=== PATIENT | female | born 1975 | race African-American/Black ===

== ENCOUNTER 2017-08-27 12:37 | Emergency (ER) | payer OTHER ==
[2017-08-27 12:49] VITALS: TEMP 97.9; BMI 36.0
--- NOTE | 2017-08-27 13:14 | PDOC ---
Attending Attestation - Resident Resident Name: Rosa Francis - ED Attending Attestation I have performed the following: I have examined & evaluated the patient, The case was reviewed & discussed with the resident, I agree w/resident's findings & plan, Exceptions are as noted - HPI HPI: 08/27/17 13:12 Chest Pain - Physicial Exam PE: 08/27/17 13:12 VSS, NAD, - Medical Decision Making 08/27/17 13:[address] Francis's Assessment and Plan
--- NOTE | 2017-08-27 13:14 | PDOC ---
History of Present Illness - General Chief Complaint: Chest Pain Stated Complaint: PAIN/ CHEST, LT ARM Time Seen by Provider: 08/27/17 12:55 - History of Present Illness Initial Comments: 08/27/17 13:31 Patient is a 42 y.o. female with a PMH of urostomy bag (2/2 repeated nephrolithiasis) and fibroids (s/p myomectomy) who presents to our facility today c/o of a two day h/o of L sided chest pain that radiates down her arm as well as L arm numbness and tingling. Patient denies any diaphoresis, lightheadedness, nausea, vomiting or shortness of breath. Past History - Past Medical History Allergies/Adverse Reactions: Allergies Allergy/AdvReac Type Severity Reaction Status Date / Time No Known Allergies Allergy Verified 08/27/17 12:49 Home Medications: Ambulatory Orders Sulfamethoxazole/Trimethoprim [Bactrim Ds Tablet] 1 each PO BID #14 tablet 08/29 Anemia: Yes Disorders: Yes (ILLEOSTOMY, H/O KIDNEY STONES) Kidney Stones: Yes (kidney failure) - Reproductive History (#): 0 Para: 0 - Immunization History Immunization Up to Date: No - Suicide/Smoking/Psychosocial Hx Smoking Status: No Smoking History: Current every day smoker Have you smoked in the past 12 months: Yes Number of Cigarettes Smoked Daily: 3 Cigars Per Day: 0 Information on smoking cessation initiated: Yes 'Breaking Loose' booklet given: 08/27/17 Hx Alcohol Use: No Drug/Substance Use Hx: No Substance Use Type: None Hx Substance Use Treatment: No Review of Systems - Review of Systems Constitutional: No: Diaphoresis, Fever HEENTM: No: Blurred Vision Respiratory: No: Cough, Shortness of Breath Cardiac (ROS): Yes: Chest Pain. No: Lightheadedness, Palpitations ABD/GI: No: Constipated, Diarrhea, Nausea, Vomiting : No: Burning, Dysuria Psychiatric: No: Anxiety, Depression All Other Systems: Reviewed and Negative *Physical Exam - Vital Signs Last Vital Signs Temp Pulse Resp BP Pulse Ox 97.9 F 60 19 157/109 95 08/27/17 12:44 08/27/17 12:44 08/27/17 12:44 08/27/17 12:44 08/27/17 12:44 - Physical Exam General Appearance: Yes: Nourished, Appropriately Dressed Neck: positive: Trachea midline, Supple Respiratory/Chest: positive: Lungs Clear, Normal Breath Sounds Cardiovascular: positive: Regular Rhythm, Regular Rate, S1, S2 Gastrointestinal/Abdominal: positive: Soft Musculoskeletal: positive: Normal Inspection Integumentary: positive: Normal Color, Dry, Warm Neurologic: positive: Fully Oriented, Alert ED Treatment Course - LABORATORY CBC & Chemistry Diagram: 08/27/17 13:40 08/27/17 13:40 Medical Decision Making - Medical Decision Making 08/27/17 20:10 Patient is a 42 y.o. female who presents with 1 day h/o chest pain that radiates to her L arm and L arm numbness and tingling. Initial DDx is for ACS vs. Atypical Chest Pain PLAN: 1. Troponin 2. CXR 3. CBC, CMP Patient's chest pain resolved during time in ED. 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 Moreover, patient's Troponin (-) x1. As > 12 hours since onset of CP, patient discharged without repeat Troponin. Patient discharged with PCP follow-up as well as referral to neurology for numbness/tingling which also resolved during the course of the admission. 08/29/17 08:20 Patient's UA (results returned post discharge) showed 3+ Leukocyte Esterase. Patient contacted and prescription for Bactrim sent to patient's pharmacy. Return precautions and PCP follow-up. *DC/Admit/Observation/Transfer Diagnosis at time of Disposition: Chest pain, atypical - Discharge Dispostion Disposition: HOME Condition at time of disposition: Good - Prescriptions Prescriptions: Sulfamethoxazole/Trimethoprim [Bactrim Ds Tablet] 1 each PO BID #14 tablet - Referrals Referrals: Pb Randolph [Primary Care Provider] - - Patient Instructions Printed Discharge Instructions: DI for Atypical Chest Pain Additional Instructions: Please make an appointment with your PCP, Dr. Randolph, for evaluation as well as possible referral to a neurologist for nerve pain. Please return to the ED for any worsening or concerning symptoms.
[2017-08-27] MEDS ORDERED: ASPIRIN 325 MG TABLET PO ONE (13:27)
[2017-08-27] MEDS ORDERED: morphine CARPU-JECT 2 MG/1 ML DISP.SYRIN IVPUSH ONE ×2 (13:45→14:59)
[2017-08-27] MEDS ORDERED: ASPIRIN 325 MG TABLET ONE (13:49)
[2017-08-27 13:50] LABS: URINE APPEARANCE CLOUDY; URINE BILIRUBIN NEGATIVE (NEGATIVE); URINE BLOOD 1+ (NEGATIVE); URINE COLOR YELLOW; URINE GLUCOSE (UA) NEGATIVE (NEGATIVE); URINE KETONE NEGATIVE (NEGATIVE); URINE NITRITE POSITIVE (NEGATIVE); URINE UROBILINOGEN NEGATIVE mg/dL (0.2-1.0)
[2017-08-27] MEDS ORDERED: morphine CARPU-JECT 10 MG/1 ML DISP.SYRIN ONE (13:50)
[2017-08-27 13:53] LABS: URINE PROTEIN 2+ (NEGATIVE)
[2017-08-27 13:55] LABS: URINE BACTERIA FEW /hpf (NONE SEEN); URINE MUCUS RARE; URINE RBC 10 /hpf (0-3); URINE WBC 37 /hpf (3-5)
[2017-08-27 13:58] LABS: BASOPHIL 0.6 % (0-2.0); EOSINOPHIL 3.7 % (0-4.5); MCH 26.5 pg (25.7-33.7); MCHC 32.4 g/dl (32.0-36.0); MEAN CELL VOLUME 81.8 fl (80-96); MEAN PLT VOLUME 8.9 fl (7.5-11.1); NEUTROPHILS 67.8 % (42.8-82.8); PLATELET COUNT 202 K/MM3 (134-434); RDW 20.6 % (11.6-15.6)
[2017-08-27 14:11] LABS: ALBUMIN 3.5 g/dl (3.4-5.0); ALK PHOS 72 U/L (45-117); ANION GAP 7 (8-16); BILIRUBIN,TOTAL 0.3 mg/dL (0.2-1.0); CO2 25 mmol/L (21-32); CPK 214 IU/L (26-192); CREATININE 1.9 mg/dL (0.55-1.02); GLUCOSE,RANDOM 79 mg/dL (74-106); MAGNESIUM 2.4 mg/dL (1.8-2.4); SGOT/AST 17 U/L (15-37); SGPT/ALT 20 U/L (12-78); TOT PROT 7.3 g/dl (6.4-8.2)
[2017-08-27 14:23] LABS: TROPONIN I < 0.02 ng/ml (0.00-0.05)
[2017-08-27 15:37] LABS: ANISOCYTOSIS 2+; HYPOCHROMIA 1+; MICROCYTOSIS 2+
[2017-08-27 16:58] VITALS: BP 148/92; PULSE 62
[2017-08-27 18:51] LABS: URINE LEUK ESTERASE 3+ (NEGATIVE)
--- NOTE | 2017-09-01 09:19 | EKG ---
Test Reason : Blood Pressure : / mmHG Vent. 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
== END 2017-08-27 16:58 | disposition home or self-care (01) ==
LOC: JER 12:37
PROC: 3E033NZ Introduction of Analgesics, Hypnotics, Sedatives into Peripheral Vein, Percutaneous Approach (ICD-10-PCS; principal; 2017-08-27)
DX: R07.89 Other chest pain (principal); F17.210 Nicotine dependence, cigarettes, uncomplicated
CPT/HCPCS: 36415; 71020-TC; 80053; 81003; 81015; 82553; 83735; 84484; 84703; 85025; 93005; 93010; 99283-25

== ENCOUNTER 2018-01-25 00:19 | Emergency (ER) | payer OTHER ==
[2018-01-25 00:37] VITALS: BMI 33.7
[2018-01-25] MEDS ORDERED: ALBUTEROL SO4 0.083% IH SOL 2.5 MG/3 ML VIAL.NEB. NEB PRN (00:58)
[2018-01-25] MEDS ORDERED: methylPREDNISolone NA SUCC 125 MG/2 ML VIAL IVPB ONE (00:58)
[2018-01-25] MEDS ORDERED: IBUPROFEN 600 MG TABLET (FP) PO ONE (01:00)
[2018-01-25] MEDS ORDERED: ALBUTEROL SO4 0.083% IH SOL 2.5 MG/3 ML VIAL.NEB. NEB ONE (01:02)
[2018-01-25] MEDS ORDERED: methylPREDNISolone NA SUCC 125 MG/2 ML VIAL ONE (01:15)
[2018-01-25 01:16] LABS: BASO % 0.4 % (0-2.0); EOS % 3.1 % (0-4.5); HEMATOCRIT 39.9 % (32.4-45.2); HEMOGLOBIN 13.6 GM/dL (10.7-15.3); LYMPH % 11.7 % (8-40); MCH 29.8 pg (25.7-33.7); MCHC 34.2 g/dl (32.0-36.0); MEAN CELL VOLUME 87.2 fl (80-96); MEAN PLT VOLUME 8.8 fl (7.5-11.1); MONO % 5.2 % (3.8-10.2); NEUT % 79.6 % (42.8-82.8); PLATELET COUNT 210 K/MM3 (134-434); RBC 4.58 M/mm3 (3.60-5.2); RDW 15.4 % (11.6-15.6); WHITE BLOOD COUNT 9.7 K/mm3 (4.0-10.0)
[2018-01-25 01:40] LABS: ALBUMIN 3.2 g/dl (3.4-5.0); ALK PHOS 72 U/L (45-117); ANION GAP 8 (8-16); BILIRUBIN,TOTAL 0.2 mg/dL (0.2-1.0); BLOOD UREA NITROGEN 26 mg/dL (7-18); CALCIUM 9.2 mg/dL (8.5-10.1); CHLORIDE 112 mmol/L (98-107); CO2 23 mmol/L (21-32); GLUCOSE,RANDOM 93 mg/dL (74-106); POTASSIUM 4.2 mmol/L (3.5-5.1); SGOT/AST 18 U/L (15-37); SGPT/ALT 21 U/L (12-78); SODIUM 143 mmol/L (136-145); TOT PROT 6.9 g/dl (6.4-8.2)
--- NOTE | 2018-01-25 01:48 | PDOC ---
History of Present Illness - General Chief Complaint: Shortness of Breath Stated Complaint: FLU LIKE SYMPTOMS Time Seen by Provider: 01/25/18 00:51 History Source: Patient - History of Present Illness Initial Comments: 01/25/18 01:42 42 year old female with history of bladder stones with urostomy c/o cough , chest congestion. denies fever/ chills, NVD, abodminal pain. patient has a right sided urostomy bag reports foul smelling urine and pain at site x 1 wek. Past History - Past Medical History Allergies/Adverse Reactions: Allergies Allergy/AdvReac Type Severity Reaction Status Date / Time No Known Allergies Allergy Verified 01/25/18 00:46 Home Medications: Ambulatory Orders Albuterol Sulfate Inhaler - [Ventolin HFA Inhaler -] 1 - 2 inh PO Q4H PRN #1 inhaler 01/25/18 Sulfamethoxazole/Trimethoprim [Bactrim Ds -] 1 tab PO BID #14 tablet 01/25/18 predniSONE [Deltasone -] 40 mg PO DAILY #10 tablet 01/25/18 Anemia: Yes COPD: No Disorders: Yes (ILLEOSTOMY, H/O KIDNEY STONES) Kidney Stones: Yes (kidney failure) - Reproductive History (#): 0 Para: 0 - Immunization History Immunization Up to Date: No - Suicide/Smoking/Psychosocial Hx Smoking Status: No Smoking History: Current every day smoker Have you smoked in the past 12 months: Yes Number of Cigarettes Smoked Daily: 3 Cigars Per Day: 0 Information on smoking cessation initiated: No 'Breaking Loose' booklet given: 08/27/17 Hx Alcohol Use: No Drug/Substance Use Hx: No Substance Use Type: None Hx Substance Use Treatment: No Review of Systems - Review of Systems Able to Perform ROS?: Yes Is the patient limited Ecuadorean proficient: No Constitutional: No: Symptoms Reported, See HPI, Chills, Diaphoresis, Fever, Loss of Appetite, Malaise, Night Sweats, Weakness, Weight Stable, Unintentional Wgt. Loss, Unexplained wgt Loss, Other HEENTM: Yes: Nose Congestion. No: Symptoms Reported, See HPI, Eye Pain, Blurred Vision, Tearing, Recent change in vision, Double Vision, Cataracts, Ear Pain, Ocular Prothesis, Ear Discharge, Nose Pain, Tinnitus, Nose Bleeding, Hearing Loss, Throat Pain, Throat Swelling, Mouth Pain, Dental Problems, Difficulty Swallowing, Mouth Swelling, Other Respiratory: Yes: Cough. No: Symptoms reported, See HPI, Orthopnea, Shortness of Breath, SOB with Exertion, SOB at Rest, Stridor, Wheezing, Productive cough, Hemoptysis, Other Cardiac (ROS): No: Symptoms Reported, See HPI, Chest Pain, Edema, Irregular Heart Rate, Lightheadedness, Palpitations, Syncope, Chest Tightness, Other *Physical Exam - Vital Signs Last Vital Signs Temp Pulse Resp BP Pulse Ox 98.2 F 63 129/89 98 01/25/18 00:20 01/25/18 00:20 01/25/18 00:20 01/25/18 00:38 - Physical Exam General Appearance: Yes: Appropriately Dressed Respiratory/Chest: positive: Decreased Breath Sounds, Wheezing Gastrointestinal/Abdominal: positive: Normal Bowel Sounds, Soft Musculoskeletal: positive: Normal Inspection, Other (right sided ostomy draining well). negative: CVA Tenderness, CVA Tenderness (R), CVA Tenderness (L ), Decreased Range of Motion, Muscle Spasm, Vertebral Tenderness Extremity: positive: Normal Capillary Refill, Normal Inspection Integumentary: positive: Normal Color, Dry Neurologic: positive: Alert ED Treatment Course - LABORATORY CBC & Chemistry Diagram: 01/25/18 01:08 01/25/18 01:08 - ADDITIONAL ORDERS Additional order review: Laboratory Results 01/25/18 01:08 Serum , Qual Negative 01/25/18 01:08 RBC 4.58 MCV 87.2 MCHC 34.2 RDW 15.4 D MPV 8.8 Neutrophils % 79.6 Lymphocytes % 11.7 D Monocytes % 5.2 Eosinophils % 3.1 Basophils % 0.4 - RADIOLOGY Radiology Studies Ordered: Category Date Time Status CHEST PA & LAT [RAD] Stat Radiology 01/25/18 00:58 Ordered - Medications Given in the ED: ED Medications Discontinued Medications Generic Name Dose Route Start Last Admin Trade Name Freq PRN Reason Stop Dose Admin Ibuprofen 600 mg 01/25/18 01:00 01/25/18 01:16 Motrin - PO 01/25/18 01:01 Not Given ONCE ONE Methylprednisolone Sodium Succinate 125 mg 01/25/18 00:58 01/25/18 01:15 Solu-Medrol - IVPB 01/25/18 00:59 125 mg ONCE ONE Administration Progress Note - Progress Note Progress Note: A: Medical Decision Making - Medical Decision Making 01/25/18 03:20 improved aeration. + cough no wheezing *DC/Admit/Observation/Transfer Diagnosis at time of Disposition: Flu-like symptoms Urinary tract infection Qualifiers: Urinary tract infection type: acute cystitis Hematuria presence: without hematuria Qualified Code(s): N30.00 - Acute cystitis without hematuria Acute bronchitis Qualifiers: Bronchitis organism: unspecified organism Qualified Code(s): J20.9 - Acute bronchitis, unspecified - Discharge Dispostion Disposition: HOME Condition at time of disposition: Stable - Prescriptions Prescriptions: Albuterol Sulfate Inhaler - [Ventolin HFA Inhaler -] 1 - 2 inh PO Q4H PRN #1 inhaler PRN Reason: Cough predniSONE [Deltasone -] 40 mg PO DAILY #10 tablet Sulfamethoxazole/Trimethoprim [Bactrim Ds -] 1 tab PO BID #14 tablet - Referrals Referrals: Mynor Castillo MD [Primary Care Provider] - - Patient Instructions Printed Discharge Instructions: DI for Urinary Tract Infection (UTI) Additional Instructions: drink plenty of fluids use albuterol every 4 hours as needed for cough. use prednisone as prescribed, take Bactrim as prescribed. follow up with your doctor as soon as possible. return to the ER if symptoms worsen. - Post Discharge Activity
[2018-01-25] MEDS ORDERED: ACETAMINOPHEN 325 MG TABLET (FP) PO ONE (02:01)
[2018-01-25] MEDS ORDERED: ACETAMINOPHEN 325 MG TABLET (FP) ONE (02:11)
[2018-01-25 02:45] LABS: URINE APPEARANCE CLOUDY; URINE BILIRUBIN NEGATIVE (NEGATIVE); URINE BLOOD 2+ (NEGATIVE); URINE COLOR YELLOW; URINE GLUCOSE (UA) NEGATIVE (NEGATIVE); URINE KETONE NEGATIVE (NEGATIVE); URINE NITRITE POSITIVE (NEGATIVE); URINE UROBILINOGEN NEGATIVE mg/dL (0.2-1.0)
[2018-01-25 02:47] LABS: URINE LEUK ESTERASE 2+ (NEGATIVE); URINE PROTEIN 2+ (NEGATIVE)
[2018-01-25 02:49] LABS: EPI CELLS FEW /HPF (FEW); URINE BACTERIA MANY /hpf (NONE SEEN); URINE HYALINE CAST 54 /lpf
[2018-01-25] MEDS ORDERED: guaiFENesin 200 MG/10 ML 10 ML UNIT-DOSE CUPS PO ONE (03:20)
[2018-01-25] MEDS ORDERED: guaiFENesin 200 MG/10 ML 10 ML UNIT-DOSE CUPS ONE (03:24)
[2018-01-25] MEDS ORDERED: SODIUM CHLORIDE 500 ML IV STA (03:42)
[2018-01-25 04:42] VITALS: BP 110/78; PULSE 78; TEMP 98.5
--- NOTE | 2018-01-28 08:46 | PDOC ---
Patient Follow-up (Call Back) - Post ED Follow - Up Condition at time of discharge: Stable Disposition at time of original discharge: HOME Reason for Call Back: Abnwl. Microbiology (on bactrim which is resistant on ucx , need levaquin or macrobid called pt and l/m to call back)
--- NOTE | 2018-01-29 08:06 | PDOC ---
Patient Follow-up (Call Back) - Post ED Follow - Up Condition at time of discharge: Stable Disposition at time of original discharge: HOME Reason for Call Back: Abnwl. Microbiology (Called pt and l/m to call back)
--- NOTE | 2018-01-29 13:01 | PDOC ---
Patient Follow-up (Call Back) - Post ED Follow - Up Condition at time of discharge: Stable Disposition at time of original discharge: HOME Reason for Call Back: Abnwl. Microbiology (She with positive urine culture that was resistant to Bactrim patient called in I have called in a prescription for Levaquin, patient will olive picker medication DC Bactrim and take as instructed.)
--- NOTE | 2018-01-30 12:53 | EKG ---
Test Reason : Blood Pressure : / mmHG Vent. Rate : 060 BPM Atrial Rate : 060 BPM P-R Int : 158 ms QRS Dur : 084 ms QT Int : 416 ms P-R-T Axes : 037 034 038 degrees QTc Int : 416 ms NORMAL SINUS RHYTHM CANNOT RULE OUT ANTEROSEPTAL INFARCT (CITED ON OR BEFORE 17-SEP-2013) ABNORMAL ECG WHEN COMPARED WITH ECG OF 27-AUG-2017 12:50, NO SIGNIFICANT CHANGE WAS FOUND Confirmed by MD SALOME, DALLAS ([id number]) on 01/30/2018 12:52:27 PM Referred By: Confirmed By:DALLAS MCMAHON MD
== END 2018-01-25 04:42 | disposition home or self-care (01) ==
LOC: JER 00:19
PROC: 3E0333Z Introduction of Anti-inflammatory into Peripheral Vein, Percutaneous Approach (ICD-10-PCS; principal; 2018-01-25)
PROC: 3E0337Z Introduction of Electrolytic and Water Balance Substance into Peripheral Vein, Percutaneous Approach (ICD-10-PCS; 2018-01-25)
PROC: 3E0F7GC Introduction of Other Therapeutic Substance into Respiratory Tract, Via Natural or Artificial Opening (ICD-10-PCS; 2018-01-25)
DX: J11.1 Influenza due to unidentified influenza virus with other respiratory manifestations (principal); N30.00 Acute cystitis without hematuria; J20.9 Acute bronchitis, unspecified
CPT/HCPCS: 36415; 71046-TC-FY; 80053; 81003; 81015; 84703; 85025; 87086; 87186; 93005; 93010; 99283-25

== ENCOUNTER 2018-02-14 19:20 | Inpatient (IN) | payer OTHER ==
--- NOTE | 2018-02-14 19:40 | PDOC ---
Rapid Medical Evaluation Time Seen by Provider: 02/14/18 19:39 Medical Evaluation: Allergies Allergy/AdvReac Type Severity Reaction Status Date / Time No Known Allergies Allergy Verified 01/25/18 00:46 02/14/18 19:39 I have performed a brief in-person evaluation of this patient. The patient presents with a chief complaint of: R flank pain x 2 days. Also c/o b/l LE pain. H/o bladder stones w/ R urostomy bag, recurrent utis Pertinent physical exam findings:+ttp to R groin, no CVAT I have ordered the following:labs/ua The patient will proceed to the ED for further evaluation. Discharge Disposition - Diagnosis Flank pain - Referrals - Patient Instructions - Post Discharge Activity
[2018-02-14] MEDS ORDERED: ACETAMINOPHEN 1000 MG/100 ML VIAL (NON FORMULARY) IVPB ONE (20:54)
[2018-02-14] MEDS ORDERED: ACETAMINOPHEN INJECTION 100 ML IVPB ONE (21:02)
--- NOTE | 2018-02-14 21:02 | PDOC ---
History of Present Illness - General Chief Complaint: Pain Stated Complaint: PAIN Time Seen by Provider: 02/14/18 19:39 History Source: Patient Exam Limitations: No Limitations - History of Present Illness Initial Comments: 02/14/18 20:55 The patient is a 42 F with a PMH of nephrolithiasis s/p urostomy bag and ovarian cysts who presents to the ER with complaints of flank pain and b/l knee pain. The patient states that her flank pain started 1 week ago and is intermittent, sharp, starts in her flank and radiates to her groin. She states that it feels more like her ovarian cysts than her nephrolithiasis. She denies any fever, chills, and hematuria. LMP is 2 weeks ago. The patient also complains of b/l knee pain, L > R which she describes as a swelling pain which includes difficulty walking. She states that her pain is constant, and radiates down to her ankles and toes. She denies any history of gout, long car rides/ plane trips, hx of blood clots, cough, hemoptysis. She states she is mildly nauseous but denies any other symptoms. Past History - Past Medical History Allergies/Adverse Reactions: Allergies Allergy/AdvReac Type Severity Reaction Status Date / Time No Known Allergies Allergy Verified 02/14/18 19:42 Home Medications: Ambulatory Orders Albuterol Sulfate Inhaler - [Ventolin HFA Inhaler -] 1 - 2 inh PO Q4H PRN #1 inhaler 01/25/18 Anemia: Yes COPD: No Disorders: Yes (ILLEOSTOMY, H/O KIDNEY STONES) Kidney Stones: Yes (kidney failure) - Reproductive History (#): 0 Para: 0 - Immunization History Immunization Up to Date: No - Suicide/Smoking/Psychosocial Hx Smoking Status: No Smoking History: Current every day smoker Have you smoked in the past 12 months: Yes Number of Cigarettes Smoked Daily: 3 Cigars Per Day: 0 Information on smoking cessation initiated: No 'Breaking Loose' booklet given: 08/27/17 Hx Alcohol Use: No Drug/Substance Use Hx: No Substance Use Type: None Hx Substance Use Treatment: No Review of Systems - Review of Systems Able to Perform ROS?: Yes Comments:: 02/14/18 21:03 GENERAL/CONSTITUTIONAL: No fever or chills. No weakness. HEAD, EYES, EARS, NOSE AND THROAT: No change in vision. No ear pain or discharge. No sore throat. CARDIOVASCULAR: No chest pain, palpitations, or lightheadedness. RESPIRATORY: No cough, wheezing, shortness of breath, or hemoptysis. GASTROINTESTINAL: Positive for nausea. No vomiting, diarrhea, constipation, or abdominal pain. GENITOURINARY: Positive flank pain. No dysuria, frequency, hematuria, or change in urination. MUSCULOSKELETAL: Positive for b/l knee pain and swelling. No neck or back pain. SKIN: No rash or lesions. NEUROLOGIC: No headache, numbness, tingling, weakness, loss of consciousness, or change in strength/sensation. ENDOCRINE: No increased thirst. No abnormal weight change. HEMATOLOGIC/LYMPHATIC: No anemia, easy bleeding, or history of blood clots. ALLERGIC/IMMUNOLOGIC: No hives or skin allergy. Is the patient limited Tamazight proficient: No *Physical Exam - Vital Signs Last Vital Signs Temp Pulse Resp BP Pulse Ox 98.2 F 74 20 143/67 97 02/14/18 19:43 02/14/18 19:43 02/14/18 19:43 02/14/18 19:43 02/14/18 19:43 - Physical Exam Comments: 02/14/18 21:04 GENERAL: Well developed, well nourished. Awake and alert. No acute distress. HEENT: Normocephalic, atraumatic. Hearing grossly normal. Moist mucous membranes. PERRLA, EOMI. No conjunctival pallor. Sclera are non-icteric. NECK: Supple. Full ROM. No JVD. CARDIOVASCULAR: Regular rate and rhythm. No murmurs, rubs, or gallops. PULMONARY: No evidence of respiratory distress. Lungs clear to auscultation bilaterally. No wheezing, rales or rhonchi. ABDOMINAL: Soft. Non-tender. Non-distended. Urostomy bag present. No rebound or guarding. GENITOURINARY: No CVA tenderness bilaterally. MUSCULOSKELETAL: Normal range of motion at all joints. Mild swelling noted on L knee, tender to palpation b/l. Nonerythematous, not warm to touch b/l. No bony deformities or tenderness. EXTREMITIES: No cyanosis. No clubbing. No edema. No calf tenderness. SKIN: Warm and dry. Normal capillary refill. No rashes. No jaundice. NEUROLOGICAL: Alert, awake, appropriate. Cranial nerves 2-12 intact. Normal speech. Gait is normal without ataxia. PSYCHIATRIC: Cooperative. Good eye contact. Appropriate mood and affect. ED Treatment Course - LABORATORY CBC & Chemistry Diagram: 02/14/18 21:10 02/14/18 21:10 Medical Decision Making - Medical Decision Making 02/14/18 21:18 The patient is a 42F with a PMH of nephrolithiasis s/p urostomy and ovarian cysts who presents to the ER with flank pain and b/l knee pain. Will r/o repeat nephrolithiasis, ectopic with u-preg, and I have low suspicion for tubo-ovarian abscess 2/2 lack of systemic symptoms including fever and chills. The patient's knee pain will be worked up with u/s. The patient has no trauma to the area so I have lower suspicion for fracture. Pending labs and imaging. Will administer IV acetaminophen for pain control. 02/14/18 22:10 UA indicates recurrent UTI with sensitivity to vancomycin and ceftriaxone on culture from 01/25. Dr. Cote has been paged for admission. 02/14/18 23:07 Dr. Cote accepts admission for med/surg bed. *DC/Admit/Observation/Transfer Diagnosis at time of Disposition: Flank pain Urinary tract infection Qualifiers: Urinary tract infection type: site unspecified Hematuria presence: with hematuria Qualified Code(s): N39.0 - Urinary tract infection, site not specified ; R31.9 - Hematuria, unspecified; R31.9 - Hematuria, unspecified - Discharge Dispostion Condition at time of disposition: Stable Admit: Yes - Referrals Referrals: Rayne Castillo MD [Primary Care Provider] - - Patient Instructions - Post Discharge Activity
--- NOTE | 2018-02-14 21:05 | PDOC ---
Attending Attestation - Resident Resident Name: Haim Richards - ED Attending Attestation I have performed the following: I have examined & evaluated the patient, The case was reviewed & discussed with the resident, I agree w/resident's findings & plan, Exceptions are as noted - Physicial Exam PE: 02/14/18 21:52 Physical Exam General Appearance: Yes: Appropriately Dress, Moderate Distress No: Intoxicated HEENT: positive: EOMI, VIV, Normal ENT Inspection, Normal Voice, TMs Normal, Pharynx Normal. negative: Pale Conjunctivae, Photophobia, Scleral Icterus (R), Scleral Icterus (L) Neck: positive: Trachea midline, Normal Thyroid, Supple. negative: Tender, Rigid, Carotid bruit, Stridor, Lymphadenopathy (R), Lymphadenopathy (L), Thyromegaly Respiratory/Chest: positive: Lungs Clear, Normal Breath Sounds. negative: Chest Tender, Respiratory Distress, Accessory Muscle Use, Labored Respiration, RES, Crackles, Rales, Rhonchi, Stridor, Wheezing, Dullness Cardiovascular: positive: Regular Rhythm, Regular Rate, S1, S2. negative: Edema , JVD, Murmur, Bradycardia, Tachycardia Vascular Pulses: Dorsalis-Pedis (R): 2+, Doralis-Pedis (L): 2+ Gastrointestinal/Abdominal: positive: Normal Bowel Sounds, Flat, Soft. negative : Tender, Organomegaly, Pulsatile Mass, Increased Bowel Sounds, Decreased BS, Distended, Guarding, Rebound, Hernia, Hepatomegaly, Spleenomegaly Lymphatic: negative: Adenopathy, Tenderness Musculoskeletal: positive: Normal Inspection. bilateral tenderness to both knee negative: CVA Tenderness, Decreased Range of Motion Extremity: positive: Normal Capillary Refill, Normal Inspection, Normal Range of Motion, Pelvis Stable. negative: Tender, Pedal Edema, Swelling, Erythema Integumentary: positive: Normal Color, Dry, Warm. negative: Cyanotic, Erythema , Jaundice, Rash Neurologic: positive: distribution associate II-XII NML intact, Fully Oriented, Alert, Normal Mood/ Affect, Motor Strength 5/5. negative: EOM Palsy, Facial Droop, Sensory Deficit - Medical Decision Making 02/14/18 21:54 This is pt third visit for urinary complaints. Pt still has UTI. Pt will be admitted for IV abx <Rolly Hermosillo - Last Filed: 02/14/18 21:54> - HPI HPI: 02/14/18 21:26 The patient is a 42-year-old female, with a significant past medical of urostomy bag (2/2 repeated nephrolithiasis) and fibroids (s/p myomectomy), who presents to the ED with one week of right-sided flank pain and bilateral knee pain. The patient describes her flank pain is sharp, intermittent, radiating down to her right groin and right leg. This pain is similar to the pain she has experienced in the past with her right ovarian cyst. The patient's knee pain is constant and she has not been able to ambulate due to the pain. She denies any trauma to the area. She reports associated nausea, but no vomiting. She denies any history of gout. The patient denies any fever, chills, vomiting, diarrhea, or abdominal pain. Denies any shortness of breath or chest pain. Allergies: NKA PCP: Dr. Rayne Castillo - Medical Decision Making 02/14/18 21:40 Dr. Rayne Castillo was paged and notified via phone service. Second page was placed at 22:06. Case was discussed at 22:10; Dr. Cote will be called for admission. 02/14/18 22:15 Dr. Cote was paged and notified via phone service. <Jenny Malin - Last Filed: 02/14/18 22:31> Discharge Disposition <Rolly Hermosillo - Last Filed: 02/14/18 21:54> - Discharge Dispostion Last Admission D/C Date: 02/22/16 <Jenny Malin - Last Filed: 02/14/18 22:31> - Diagnosis Flank pain - Referrals Referrals: Rayne Castillo MD [Primary Care Provider] - - Patient Instructions - Post Discharge Activity Attestations - Attestations 02/14/18 21:27 Documentation prepared by Jenny Malin, acting as medical videographer for Rolly Hermosillo MD. <Jenny Malin - Last Filed: 02/14/18 22:31>
[2018-02-14 21:24] LABS: EOS % 6.2 % (0-4.5); HEMATOCRIT 38.1 % (32.4-45.2); HEMOGLOBIN 13.2 GM/dL (10.7-15.3); LYMPH % 20.5 % (8-40); MCH 30.9 pg (25.7-33.7); MCHC 34.6 g/dl (32.0-36.0); MEAN CELL VOLUME 89.3 fl (80-96); MEAN PLT VOLUME 9.5 fl (7.5-11.1); MONO % 6.2 % (3.8-10.2); NEUT % 66.1 % (42.8-82.8); PLATELET COUNT 204 K/MM3 (134-434); RBC 4.26 M/mm3 (3.60-5.2); RDW 15.8 % (11.6-15.6); WHITE BLOOD COUNT 6.9 K/mm3 (4.0-10.0)
[2018-02-14 21:25] LABS: URINE APPEARANCE SLCLOUDY; URINE BILIRUBIN NEGATIVE (<2.0 mg/dL); URINE BLOOD 2+ (NEGATIVE); URINE COLOR LTYELLOW; URINE GLUCOSE (UA) NEGATIVE (NEGATIVE); URINE KETONE NEGATIVE (NEGATIVE); URINE NITRITE POSITIVE (NEGATIVE); URINE UROBILINOGEN NEGATIVE mg/dL (0.2-1.0)
[2018-02-14 21:26] LABS: URINE LEUK ESTERASE 2+ (NEGATIVE); URINE PROTEIN 2+ (NEGATIVE)
[2018-02-14 21:35] LABS: EPI CELLS RARE /HPF (FEW); URINE BACTERIA RARE /hpf (NONE SEEN)
[2018-02-14 21:47] LABS: ALBUMIN 3.2 g/dl (3.4-5.0); ALK PHOS 72 U/L (45-117); ANION GAP 9 (8-16); BILIRUBIN,TOTAL 0.2 mg/dL (0.2-1.0); BLOOD UREA NITROGEN 25 mg/dL (7-18); CALCIUM 8.4 mg/dL (8.5-10.1); CHLORIDE 110 mmol/L (98-107); CO2 23 mmol/L (21-32); GLUCOSE,RANDOM 100 mg/dL (74-106); POTASSIUM 4.1 mmol/L (3.5-5.1); SGOT/AST 16 U/L (15-37); SGPT/ALT 17 U/L (12-78); SODIUM 142 mmol/L (136-145); TOT PROT 6.8 g/dl (6.4-8.2)
[2018-02-14] MEDS ORDERED: morphine CARPU-JECT 2 MG/1 ML DISP.SYRIN IVPUSH ONE (21:47)
[2018-02-14] MEDS ORDERED: morphine SULFATE 4 MG/ML VIAL ONE (21:47)
[2018-02-14] MEDS ORDERED: ONDANSETRON 4 MG/2 ML VIAL IVPUSH STA (21:47)
[2018-02-14] MEDS ORDERED: ONDANSETRON 4 MG/2 ML VIAL ONE (21:48)
[2018-02-14] MEDS ORDERED: morphine CARPU-JECT 4 MG/1 ML DISP.SYRIN IVPUSH ONE (21:54)
[2018-02-14] MEDS ORDERED: CEFTRIAXONE 1 GM in DEXTROSE 5%-WATER - 50 ML IVPB ONE (22:09)
[2018-02-14] MEDS ORDERED: VANCOMYCIN 1,000 MG in DEXTROSE 5%-WATER - 250 ML IVPB ONE (22:10)
[2018-02-14] MEDS ORDERED: VANCOMYCIN 1 GRAM (PRE-DOCKED) 1,000 MG/250 ML BAG IVPB ONE (22:42)
[2018-02-14] MEDS ORDERED: CEFTRIAXONE 1 GM/50 ML BAG ONE (22:42)
[2018-02-15] MEDS ORDERED: ALBUTEROL SO4 2.5/IPRATROPIUM 0.5 INH SOL 3 ML VIAL.NEB. NEB PRN (02:08)
[2018-02-15] MEDS ORDERED: KETOROLAC TROMETHAMINE 15 MG/ML VIAL IM PRN (02:31)
[2018-02-15] MEDS: DEXTROSE 5%-0.45% SALINE 1,000 ML IV SCH (02:32)
[2018-02-15] MEDS ORDERED: morphine CARPU-JECT 4 MG/1 ML DISP.SYRIN IVPUSH ONE (03:39)
[2018-02-15] MEDS ORDERED: morphine SULFATE 4 MG/ML VIAL ONE ×2 (03:41→14:27)
[2018-02-15 08:49] LABS: BASO % 0.4 % (0-2.0); HEMATOCRIT 36.3 % (32.4-45.2); HEMOGLOBIN 12.4 GM/dL (10.7-15.3); LYMPH % 26.3 % (8-40); MCH 30.7 pg (25.7-33.7); MCHC 34.3 g/dl (32.0-36.0); MEAN CELL VOLUME 89.7 fl (80-96); MEAN PLT VOLUME 9.4 fl (7.5-11.1); MONO % 8.3 % (3.8-10.2); PLATELET COUNT 197 K/MM3 (134-434); RBC 4.04 M/mm3 (3.60-5.2); RDW 15.8 % (11.6-15.6); WHITE BLOOD COUNT 6.4 K/mm3 (4.0-10.0)
[2018-02-15 09:08] LABS: ANION GAP 6 (8-16); BILIRUBIN,TOTAL 0.2 mg/dL (0.2-1.0); BLOOD UREA NITROGEN 26 mg/dL (7-18); CALCIUM 7.8 mg/dL (8.5-10.1); CHLORIDE 109 mmol/L (98-107); CO2 24 mmol/L (21-32); CREATININE 1.9 mg/dL (0.55-1.02); GLUCOSE,RANDOM 93 mg/dL (74-106); POTASSIUM 3.8 mmol/L (3.5-5.1); SGOT/AST 15 U/L (15-37); SGPT/ALT 17 U/L (12-78); SODIUM 139 mmol/L (136-145); TOT PROT 6.2 g/dl (6.4-8.2)
[2018-02-15 09:09] LABS: ALK PHOS 66 U/L (45-117)
[2018-02-15] MEDS ORDERED: HEPARIN NA (PORCINE) 5,000 UNITS/ML 1ML VIAL ONE (09:28)
[2018-02-15] MEDS ORDERED: CEFTRIAXONE 1 GM/50 ML BAG ONE (09:28)
[2018-02-15] MEDS: HEPARIN NA (PORCINE) 5,000 UNITS/ML 1ML VIAL SQ SCH ×2 (09:38→22:15)
[2018-02-15] MEDS ORDERED: KETOROLAC TROMETHAMINE 15 MG/ML VIAL ONE (09:40)
[2018-02-15] MEDS ORDERED: CEFTRIAXONE 1 GM in DEXTROSE 5%-WATER - 50 ML IVPB SCH (10:00)
[2018-02-15] MEDS ORDERED: TAMSULOSIN HCL 0.4 MG CAP.ER.24H (FP) PO ONE (10:30)
[2018-02-15] MEDS ORDERED: TAMSULOSIN HCL 0.4 MG CAP.ER.24H (FP) ONE (11:19)
[2018-02-15] MEDS: morphine SULFATE 4 MG/ML VIAL IVPUSH PRN ×2 (14:33→20:15)
--- NOTE | 2018-02-15 16:05 | CON.ID ---
Consult Consult Specialty:: infectious diseases Referred by:: Reason for Consultation:: uti,pyelo - History of Present Illness Chief Complaint: abd pain History of Present Illness: 42 year old female with pmhx of nephrolithiasis, CKD, urostomy bag, and ovarian cysts who presents to the ER complaining of right flank pain. She has had it for several days and feels that it radiates to her groin. She denies fevers or chills. She has had kidney stones in the past. patient has been complaining of knee pain currently he patient is comfortable and her discomfort is mainly in the rt back her urostomy is in place clear urine - History Source History Provided By: Patient Limitations to Obtaining History: No Limitations - Past Medical History Renal/: Yes: Renal Inusuff (s/p urinary diversion , ileal conduit 8 yrs ago at [facility] . 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 suspect thyroditis ) - Alcohol/Substance Use Hx Alcohol Use: No - Smoking History Smoking history: Current every day smoker Have you smoked in the past 12 months: Yes Aproximately how many cigarettes per day: 3 - Social History Usual Living Arrangement: Alone ADL: Independent History of Recent Travel: No Home Medications - Allergies Allergies/Adverse Reactions: Allergies Allergy/AdvReac Type Severity Reaction Status Date / Time No Known Allergies Allergy Verified 02/14/18 19:42 - Home Medications Home Medications: Ambulatory Orders NK [No Known Home Medication] 02/15/18 Family Disease History - Family Disease History Family Disease History: [place]: Mother (MGM [place] Breast) Review of Systems - Review of Systems Constitutional: reports: No Symptoms Eyes: reports: No Symptoms HENT: reports: No Symptoms Neck: reports: No Symptoms Cardiovascular: reports: No Symptoms Respiratory: reports: No Symptoms Gastrointestinal: reports: No Symptoms Genitourinary: reports: Flank Pain Musculoskeletal: reports: No Symptoms, Other (rt groin pain) Integumentary: reports: No Symptoms Neurological: reports: No Symptoms Endocrine: reports: No Symptoms Hematology/Lymphatic: reports: No Symptoms Psychiatric: reports: No Symptoms Physical Exam Vital Signs: Vital Signs Temperature 98.6 F 02/15/18 15:30 Pulse Rate 78 02/15/18 15:30 Respiratory Rate 18 02/15/18 15:30 Blood Pressure 119/78 02/15/18 15:30 O2 Sat by Pulse Oximetry (%) 98 02/15/18 15:30 Constitutional: Yes: Well Nourished, No Distress, Calm, Obese Eyes: Yes: Conjunctiva Clear, EOM Intact HENT: Yes: Atraumatic, Normocephalic Neck: Yes: Supple, Trachea Midline Cardiovascular: Yes: Regular Rate and Rhythm Respiratory: Yes: Regular, CTA Bilaterally Gastrointestinal: Yes: Normal Bowel Sounds, Soft Renal/: Yes: Other (urostomy bag present,rt groin pain). No: CVA Tenderness - Left, CVA Tenderness - Right Musculoskeletal: Yes: WNL Extremities: Yes: WNL Neurological: Yes: Alert, Oriented Psychiatric: Yes: Alert, Oriented Labs: CBC, BMP 02/15/18 07:50 02/15/18 07:50 Assessment/Plan Problem List - Problems (1) Flank pain Code(s): R10.9 - UNSPECIFIED ABDOMINAL PAIN (2) Urinary tract infection Code(s): N39.0 - URINARY TRACT INFECTION, SITE NOT SPECIFIED Qualifiers: Urinary tract infection type: site unspecified Hematuria presence: with hematuria Qualified Code(s): N39.0 - Urinary tract infection, site not specified; R31.9 - Hematuria, unspecified; R31.9 - Hematuria, unspecified (3) CKD (chronic kidney disease) Code(s): N18.9 - CHRONIC KIDNEY DISEASE, UNSPECIFIED plan will start the patient on abx await for all the cx reports hydration rest as per primary team
[2018-02-15 16:21] VITALS: BMI 37.3
--- NOTE | 2018-02-15 17:07 | CONSULT ---
Consult Consult Specialty:: Nephrology Reason for Consultation:: CKD - History of Present Illness Chief Complaint: flank and knee pain History of Present Illness: Pt is a 42 year old female with pmhx of nephrolithiasis, CKD, urostomy bag, and ovarian cysts who presents to the ER complaining of right flank pain. She has had it for several days and feels that it radiates to her groin. She denies fevers or chills. She has had kidney stones in the past. She has CKD but does not follow with a disaster recovery consultant. She also complains of knee pain and difficulty walking. She says that the urine has been clear. I was called to evaluate her for CKD. - History Source History Provided By: Patient, Medical Record - Past Medical History Renal/: Yes: Renal Inusuff (s/p urinary diversion , ileal conduit 8 yrs ago at [facility] . 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 suspect thyroditis ) - Alcohol/Substance Use Hx Alcohol Use: No - Smoking History Smoking history: Current every day smoker Have you smoked in the past 12 months: Yes Aproximately how many cigarettes per day: 3 - Social History Usual Living Arrangement: Alone ADL: Independent History of Recent Travel: No Home Medications - Allergies Allergies/Adverse Reactions: Allergies Allergy/AdvReac Type Severity Reaction Status Date / Time No Known Allergies Allergy Verified 02/14/18 19:42 - Home Medications Home Medications: Ambulatory Orders NK [No Known Home Medication] 02/15/18 Family Disease History - Family Disease History Family Disease History: [place]: Mother (MGM [place] Breast) Review of Systems - Review of Systems Constitutional: reports: Malaise Eyes: reports: No Symptoms HENT: reports: No Symptoms Neck: reports: No Symptoms Cardiovascular: reports: No Symptoms Respiratory: reports: No Symptoms Gastrointestinal: reports: No Symptoms Genitourinary: reports: Flank Pain Musculoskeletal: reports: Joint Pain Integumentary: reports: No Symptoms Neurological: reports: No Symptoms Endocrine: reports: No Symptoms Psychiatric: reports: No Symptoms Physical Exam Vital Signs: Vital Signs Temperature 97.3 F L 02/15/18 16:10 Pulse Rate 60 02/15/18 16:10 Respiratory Rate 20 02/15/18 16:10 Blood Pressure 120/64 02/15/18 16:10 O2 Sat by Pulse Oximetry (%) 94 L 02/15/18 16:24 Constitutional: Yes: Calm Eyes: Yes: Conjunctiva Clear HENT: Yes: Atraumatic Cardiovascular: Yes: S1, S2 Respiratory: Yes: CTA Bilaterally Gastrointestinal: Yes: Soft Renal/: Yes: Other (urostomy) Musculoskeletal: Yes: WNL Edema: No Integumentary: Yes: Tattoos Neurological: Yes: Oriented Psychiatric: Yes: Oriented Labs: CBC, BMP 02/15/18 07:50 02/15/18 07:50 Laboratory Tests 02/02/15 02/19/15 06/15/15 17:30 01:30 07:00 WBC Hgb Potassium Creatinine 1.8 H 2.1 H 1.9 H Urine Protein Urine Blood Ur Leukocyte Esterase 05/19/16 08/27/17 01/25/18 00:00 13:40 01:08 WBC Hgb Potassium Creatinine 2.1 H 1.9 H 2.0 H Urine Protein Urine Blood Ur Leukocyte Esterase 02/14/18 02/14/18 02/15/18 21:10 21:10 07:50 WBC 6.4 Hgb 12.4 Potassium Creatinine 2.0 H Urine Protein 2+ H Urine Blood 2+ H Ur Leukocyte Esterase 2+ H 02/15/18 07:50 WBC Hgb Potassium 3.8 Creatinine 1.9 H Urine Protein Urine Blood Ur Leukocyte Esterase Imaging - Results Ultrasound: Report Reviewed (bilateral hydro) Problem List - Problems (1) Flank pain Code(s): R10.9 - UNSPECIFIED ABDOMINAL PAIN (2) Urinary tract infection Code(s): N39.0 - URINARY TRACT INFECTION, SITE NOT SPECIFIED Qualifiers: Urinary tract infection type: site unspecified Hematuria presence: with hematuria Qualified Code(s): N39.0 - Urinary tract infection, site not specified; R31.9 - Hematuria, unspecified; R31.9 - Hematuria, unspecified (3) CKD (chronic kidney disease) Code(s): N18.9 - CHRONIC KIDNEY DISEASE, UNSPECIFIED Assessment/Plan Current Medications Generic Name Dose Route Start Last Admin Trade Name Freq PRN Reason Stop Dose Admin Albuterol/Ipratropium 1 amp 02/15/18 02:08 Duoneb - NEB Q6H PRN SHORTNESS OF BREATH Heparin Sodium (Porcine) 5,000 unit 02/15/18 10:00 02/15/18 09:38 Heparin - SQ 5,000 unit BID PATRICK Administration Dextrose/Sodium Chloride 1,000 mls @ 75 mls/hr 02/15/18 02:15 02/15/18 02:32 D5-1/2ns - IV 75 mls/hr ASDIR PATRICK Administration Piperacillin Sod/Tazobactam 50 mls @ 100 mls/hr 02/15/18 18:00 Sod 2.25 gm/ Dextrose IVPB Q8H-IV PATRICK Protocol Morphine Sulfate 4 mg 02/15/18 14:03 02/15/18 14:33 Morphine Sulfate IVPUSH 4 mg Q6H PRN Administration pain Impression 1. CKD 2. hydronephrosis 3. uti 4. ovarian cysts 5. anemia Plan - urology eval for the hydro, pt is making urine - reviewed labs from previous admission and renal function is stable - she will however need a renal ckd workup, which she says has not been done - send urine and blood cultures - ID input pending - will follow Dr Montgomery
--- NOTE | 2018-02-15 18:11 | HP ---
Admitting History and Physical - Past Medical History Renal/: Yes: Renal Inusuff (s/p urinary diversion , ileal conduit 8 yrs ago at [facility] . 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 suspect thyroditis ) - Smoking History Smoking history: Current every day smoker Have you smoked in the past 12 months: Yes Aproximately how many cigarettes per day: 3 - Alcohol/Substance Use Hx Alcohol Use: No - Social History ADL: Independent History of Recent Travel: No Home Medications - Allergies Allergies/Adverse Reactions: Allergies Allergy/AdvReac Type Severity Reaction Status Date / Time No Known Allergies Allergy Verified 02/14/18 19:42 - Home Medications Home Medications: Ambulatory Orders NK [No Known Home Medication] 02/15/18 Family Disease History - Family Disease History Family Disease History: CA: Mother (MGM [place] Breast) Physical Examination Vital Signs: Vital Signs Temperature 97.3 F L 02/15/18 16:10 Pulse Rate 60 02/15/18 16:10 Respiratory Rate 20 02/15/18 16:10 Blood Pressure 120/64 02/15/18 16:10 O2 Sat by Pulse Oximetry (%) 94 L 02/15/18 16:24 Labs: CBC, BMP 02/15/18 07:50 02/15/18 07:50
[2018-02-15] MEDS: PIPERACILLIN/TAZOB 2.25 GM 2.25 GM in DEXTROSE 5%-WATER - 50 ML IVPB SCH (18:24)
[2018-02-16] MEDS: ONDANSETRON 4 MG/2 ML VIAL IVPUSH PRN ×3 (00:28→13:44)
[2018-02-16] MEDS: PIPERACILLIN/TAZOB 2.25 GM 2.25 GM in DEXTROSE 5%-WATER - 50 ML IVPB SCH ×3 (01:16→18:03)
[2018-02-16] MEDS: morphine SULFATE 4 MG/ML VIAL IVPUSH PRN ×4 (02:13→21:43)
[2018-02-16 08:28] LABS: BASO % 0.3 % (0-2.0); LYMPH % 28.2 % (8-40); MCH 29.8 pg (25.7-33.7); MCHC 33.3 g/dl (32.0-36.0); MEAN CELL VOLUME 89.3 fl (80-96); MEAN PLT VOLUME 9.7 fl (7.5-11.1); MONO % 5.4 % (3.8-10.2); NEUT % 58.1 % (42.8-82.8); PLATELET COUNT 187 K/MM3 (134-434); RBC 4.03 M/mm3 (3.60-5.2); RDW 16.2 % (11.6-15.6); WHITE BLOOD COUNT 5.2 K/mm3 (4.0-10.0)
[2018-02-16 08:43] LABS: CHLORIDE 112 mmol/L (98-107); POTASSIUM 4.1 mmol/L (3.5-5.1); SODIUM 143 mmol/L (136-145)
[2018-02-16 09:03] LABS: ALBUMIN 2.8 g/dl (3.4-5.0); ALK PHOS 61 U/L (45-117); ANION GAP 9 (8-16); BILIRUBIN,TOTAL 0.3 mg/dL (0.2-1.0); BLOOD UREA NITROGEN 22 mg/dL (7-18); CALCIUM 8.3 mg/dL (8.5-10.1); CO2 22 mmol/L (21-32); CREATININE 1.9 mg/dL (0.55-1.02); GLUCOSE,RANDOM 82 mg/dL (74-106); SGOT/AST 17 U/L (15-37); SGPT/ALT 15 U/L (12-78)
--- NOTE | 2018-02-16 09:26 | CON.CARD ---
Cardiology Consult (text) - Consultation Consultation Note: Cardiology Consult Dictated IMP: MENDEZ x one month LE edema H/o nephrolithiasis, CKD REC: ECG Chest PA & Lateral Echo Consider outpatient PFTs Outpatient stress test Thank you.
--- NOTE | 2018-02-16 10:19 | CONS ---
DATE OF CONSULTATION: 02/16/2018 REASON FOR CONSULTATION: The consultation is requested by Dr. Cote for evaluation of dyspnea on exertion and lower extremity edema. The patient is a 42-year-old female admitted on February 14 with a past medical history of chronic recurrent severe nephrolithiasis, status post urostomy bag, chronic renal insufficiency, recurrent urinary tract infections, ovarian cysts. She presented to the emergency room with bilateral knee pain, bilateral lower extremity swelling and flank pain of one week duration. On cardiac review of systems, she also endorses about one month of dyspnea on exertion and orthopnea symptoms. She denies cough , weight loss, or chest pain. She denies palpitations, syncope. She denies any prior cardiac history. Her past medical history is as above. She has no known drug allergies. SURGICAL HISTORY: Denies, apart from what was mentioned above regarding her urology history. She has had previous percutaneous nephrostomy tubes as well. Her active medications include albuterol q.6 p.r.n., subcutaneous heparin 5000 units subcutaneous b.i.d. for DVT prophylaxis; morphine sulfate 2 mg IV q.6 hours p.r.n., Zofran 4 mg IV q.6 p.r.n. and IV Zosyn. This is being given to treat a presumed urinary tract infection. FAMILY HISTORY: Is negative for early coronary disease or sudden cardiac . SOCIAL HISTORY: She smokes marijuana, and has a long history of smoking of less than one-half pack per day. She denies illegal drug use. PHYSICAL EXAMINATION: General: Alert, oriented, pleasant, no distress. Vitals: Temperature 98.4, afebrile, blood pressure 114/71, oxygen saturation 97 on room air. Multiple tattoos all over her body. Neck: No bruits of JVD. Heart: S1, 2 regular. No S3, no S4. Chest: Scattered expiratory wheezing, mild. Scattered rhonchi, no rales. Abdomen: Soft, nontender. Extremities: There is no significant pitting edema. There is no EKG in the chart. There is no chest x-ray in the chart. LABORATORY STUDIES: White count 5.2, hemoglobin 12, platelets 187. Sodium 143, potassium 4.1, BUN 22, creatinine 1.9. LFTs are normal. Albumin is 2.8. Beta hCG test negative for . Urinalysis showed 2+ protein, 2+ blood, 2+ leukocyte esterase, 39 white blood cells. IMPRESSION: 1. Dyspnea on exertion x1 month. 2. Reported bilateral lower extremity edema. 3. History of nephrolithiasis and chronic kidney disease. RECOMMENDATIONS: 1. Electrocardiogram. 2. Chest PA and lateral. 3. Echocardiogram to evaluate LV function, rule out pericardial disease and assess right-sided pressure. 4. Recommend outpatient PFTs to evaluate for COPD. 5. Outpatient stress test is also recommended, unless echocardiogram showed significant LV dysfunction. 6. A lower extremity duplex has already has been obtained and is negative for DVT, although it does show a 4.8 x 2.6 Blankenship cyst in the left popliteal fossa, which may or may not be responsible for the patient's reported edema and/or leg pain. Thank you. STACIA MENDOZA M.D. [id number] MTDD
[2018-02-16] MEDS: HEPARIN NA (PORCINE) 5,000 UNITS/ML 1ML VIAL SQ SCH ×2 (10:44→21:43)
[2018-02-16] MEDS: DEXTROSE 5%-0.45% SALINE 1,000 ML IV SCH ×2 (10:47→21:48)
--- NOTE | 2018-02-16 12:24 | CONSULT ---
Consult - text type - Consultation Consultation Note: FULL CONSULT DICTATED IMP: B KNEE PAIN PLAN: F/U MY OFFICE UPON DC
--- NOTE | 2018-02-16 12:35 | PN ---
Progress Note, Physician History of Present Illness: stable no new issues pain improving - Current Medication List Current Medications: Active Medications Albuterol/Ipratropium (Duoneb -) 1 amp NEB Q6H PRN PRN Reason: SHORTNESS OF BREATH Heparin Sodium (Porcine) (Heparin -) 5,000 unit SQ BID PATRICK Last Admin: 02/16/18 10:44 Dose: 5,000 unit Dextrose/Sodium Chloride (D5-1/2ns -) 1,000 mls @ 75 mls/hr IV ASDIR PATRICK Last Admin: 02/16/18 10:47 Dose: 75 mls/hr Piperacillin Sod/Tazobactam (Sod 2.25 gm/ Dextrose) 50 mls @ 100 mls/hr IVPB Q8H-IV PATRICK PRN Reason: Protocol Last Admin: 02/16/18 10:44 Dose: 100 mls/hr Morphine Sulfate (Morphine Sulfate) 2 mg IVPUSH Q6H PRN PRN Reason: PAIN LEVEL 6-10 Last Admin: 02/16/18 08:13 Dose: 2 mg Ondansetron HCl (Zofran Injection) 4 mg IVPUSH Q6H PRN PRN Reason: NAUSEA AND/OR VOMITING Last Admin: 02/16/18 08:13 Dose: 4 mg - Objective Vital Signs: Vital Signs Temperature 98.4 F 02/16/18 07:00 Pulse Rate 62 02/16/18 07:00 Respiratory Rate 18 02/16/18 09:00 Blood Pressure 114/71 02/16/18 07:00 O2 Sat by Pulse Oximetry (%) 97 02/16/18 09:00 Constitutional: Yes: No Distress, Calm, Obese Cardiovascular: Yes: Regular Rate and Rhythm Respiratory: Yes: Regular, CTA Bilaterally Gastrointestinal: Yes: Normal Bowel Sounds, Soft, Other (urostomy working well) Genitourinary: Yes: CVA Tenderness - Right (better) Extremities: Yes: WNL Neurological: Yes: Alert, Oriented Psychiatric: Yes: Alert, Oriented Labs: CBC, BMP 02/16/18 07:30 02/16/18 06:30 Assessment/Plan Problem List - Problems (1) Flank pain Code(s): R10.9 - UNSPECIFIED ABDOMINAL PAIN (2) Urinary tract infection Code(s): N39.0 - URINARY TRACT INFECTION, SITE NOT SPECIFIED Qualifiers: Urinary tract infection type: site unspecified Hematuria presence: with hematuria Qualified Code(s): N39.0 - Urinary tract infection, site not specified; R31.9 - Hematuria, unspecified; R31.9 - Hematuria, unspecified (3) CKD (chronic kidney disease) Code(s): N18.9 - CHRONIC KIDNEY DISEASE, UNSPECIFIED plan continue abx ordered ct scan of the abd once we have ct results will see rest as per primary
--- NOTE | 2018-02-16 13:06 | CONS ---
DATE OF CONSULTATION: 02/16/2018 HISTORY: The patient is a 42-year-old female admitted to the hospital with a UTI and is on IV antibiotics. The patient has been complaining of a long history of bilateral knee pain. It has been slightly worse since she has been admitted. She says it is swollen on occasion but not swollen now. PHYSICAL EXAMINATION: She has no erythema, ecchymosis, effusion. She has good range of motion in the ankles and toes. Some patella facet tenderness. No joint line tenderness. Stable varus and valgus anterior and posterior. Calf is soft and nontender. Has 5/5 reflexes. Intact sensation throughout. No x-rays were available. IMPRESSION: Bilateral knee pain probable patellofemoral in nature but definitely not infectious in nature despite patient being admitted for a urinary tract infection. PLAN: After being treated for a UTI, she has been discharged, and she can follow up in my office as an outpatient where we can further evaluate her, get x-rays, place her on physical therapy and the appropriate anti-inflammatory or other treatments as required. MARCY COMER M.D. [id number]
--- NOTE | 2018-02-16 14:05 | CON.GI ---
Consult Consult Specialty:: gastroenterology Referred by:: Dr Cyril Castillo - History of Present Illness History of Present Illness: The patient with PMH of bilateral nephrostomies s/p ilela conduit 10 years ago has persistent rlq pain. Abdominal ultrasound revealed cholelithisis and bilateral hydronephrosis. Patient continue to have rlq pain. - Past Medical History Renal/: Yes: Renal Inusuff (s/p urinary diversion , ileal conduit 8 yrs ago at [facility] . 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 suspect thyroditis ) - Alcohol/Substance Use Hx Alcohol Use: No - Smoking History Smoking history: Current every day smoker Have you smoked in the past 12 months: Yes Aproximately how many cigarettes per day: 3 - Social History Usual Living Arrangement: Alone ADL: Independent History of Recent Travel: No Home Medications - Allergies Allergies/Adverse Reactions: Allergies Allergy/AdvReac Type Severity Reaction Status Date / Time No Known Allergies Allergy Verified 02/14/18 19:42 - Home Medications Home Medications: Ambulatory Orders NK [No Known Home Medication] 02/15/18 Family Disease History - Family Disease History Family Disease History: CA: Mother (MGM [place] Breast) Physical Exam-GI Vital Signs: Vital Signs Temperature 98.0 F 02/16/18 11:00 Pulse Rate 58 L 02/16/18 11:00 Respiratory Rate 17 02/16/18 11:00 Blood Pressure 122/67 02/16/18 11:00 O2 Sat by Pulse Oximetry (%) 97 02/16/18 09:00 Constitutional: Yes: Obese Eyes: Yes: Conjunctiva Clear, Occular Prosthesis Neck: Yes: Supple Cardiovascular: Yes: Regular Rate and Rhythm Respiratory: Yes: Regular Gastrointestinal Inspection: Yes: Other (rlq ileal conduit) ...Palpate: Yes: Soft, Tenderness (rlq pain). No: Firm/Rigid, Guarding, Hepatomegaly, Splenomegaly Labs: CBC, BMP 02/16/18 07:30 02/16/18 06:30 Problem List - Problems (1) RLQ abdominal pain Assessment/Plan: r/o secondary to referred pain from hydronephrosis vs appendiceal neoplasm R> cea level ct of the abdomen and pelvis urology follow-up Code(s): R10.31 - RIGHT LOWER QUADRANT PAIN
--- NOTE | 2018-02-16 16:56 | PN ---
Progress Note, Physician History of Present Illness: Pt seen and examined at bedside. She is awake and alert. She feels a little better than yesterday but still has pain. - Current Medication List Current Medications: Active Medications Albuterol/Ipratropium (Duoneb -) 1 amp NEB Q6H PRN PRN Reason: SHORTNESS OF BREATH Heparin Sodium (Porcine) (Heparin -) 5,000 unit SQ BID PATRICK Last Admin: 02/16/18 10:44 Dose: 5,000 unit Dextrose/Sodium Chloride (D5-1/2ns -) 1,000 mls @ 75 mls/hr IV ASDIR PATRICK Last Admin: 02/16/18 10:47 Dose: 75 mls/hr Piperacillin Sod/Tazobactam (Sod 2.25 gm/ Dextrose) 50 mls @ 100 mls/hr IVPB Q8H-IV PATRICK PRN Reason: Protocol Last Admin: 02/16/18 10:44 Dose: 100 mls/hr Morphine Sulfate (Morphine Sulfate) 2 mg IVPUSH Q6H PRN PRN Reason: PAIN LEVEL 6-10 Last Admin: 02/16/18 13:44 Dose: 2 mg Ondansetron HCl (Zofran Injection) 4 mg IVPUSH Q6H PRN PRN Reason: NAUSEA AND/OR VOMITING Last Admin: 02/16/18 13:44 Dose: 4 mg - Objective Vital Signs: Vital Signs Temperature 98.0 F 02/16/18 11:00 Pulse Rate 58 L 02/16/18 11:00 Respiratory Rate 17 02/16/18 11:00 Blood Pressure 122/67 02/16/18 11:00 O2 Sat by Pulse Oximetry (%) 97 02/16/18 09:00 Constitutional: Yes: Calm Eyes: Yes: Conjunctiva Clear HENT: Yes: Atraumatic Neck: Yes: Supple Cardiovascular: Yes: S1, S2 Respiratory: Yes: CTA Bilaterally Gastrointestinal: Yes: Soft Genitourinary: Yes: Other (ileal conduit) Musculoskeletal: Yes: WNL Edema: No Integumentary: Yes: Tattoos Neurological: Yes: Oriented Psychiatric: Yes: Oriented Labs: CBC, BMP 02/16/18 07:30 02/16/18 06:30 Problem List - Problems (1) Flank pain Code(s): R10.9 - UNSPECIFIED ABDOMINAL PAIN (2) Urinary tract infection Code(s): N39.0 - URINARY TRACT INFECTION, SITE NOT SPECIFIED Qualifiers: Urinary tract infection type: site unspecified Hematuria presence: with hematuria Qualified Code(s): N39.0 - Urinary tract infection, site not specified; R31.9 - Hematuria, unspecified; R31.9 - Hematuria, unspecified (3) CKD (chronic kidney disease) Code(s): N18.9 - CHRONIC KIDNEY DISEASE, UNSPECIFIED Assessment/Plan Current Medications Generic Name Dose Route Start Last Admin Trade Name Freq PRN Reason Stop Dose Admin Albuterol/Ipratropium 1 amp 02/15/18 02:08 Duoneb - NEB Q6H PRN SHORTNESS OF BREATH Heparin Sodium (Porcine) 5,000 unit 02/15/18 10:00 02/16/18 10:44 Heparin - SQ 5,000 unit BID PATRICK Administration Dextrose/Sodium Chloride 1,000 mls @ 75 mls/hr 02/15/18 02:15 02/16/18 10:47 D5-1/2ns - IV 75 mls/hr ASDIR PATRICK Administration Piperacillin Sod/Tazobactam 50 mls @ 100 mls/hr 02/15/18 18:00 02/16/18 10:44 Sod 2.25 gm/ Dextrose IVPB 100 mls/hr Q8H-IV PATRICK Administration Protocol Morphine Sulfate 2 mg 02/15/18 22:10 02/16/18 13:44 Morphine Sulfate IVPUSH 2 mg Q6H PRN Administration PAIN LEVEL 6-10 Ondansetron HCl 4 mg 02/16/18 00:22 02/16/18 13:44 Zofran Injection IVPUSH 4 mg Q6H PRN Administration NAUSEA AND/OR VOMITING Impression 1. CKD 2. hydronephrosis 3. uti 4. ovarian cysts 5. anemia Plan - renal function is stable - urology eval for hydro - pt is making urine - cont care for ileal conduit - will need outpt renal workup - will follow Dr Montgomery
--- NOTE | 2018-02-17 00:56 | PN ---
Progress Note, Physician - Current Medication List Current Medications: Active Medications Albuterol/Ipratropium (Duoneb -) 1 amp NEB Q6H PRN PRN Reason: SHORTNESS OF BREATH Heparin Sodium (Porcine) (Heparin -) 5,000 unit SQ BID PATRICK Last Admin: 02/16/18 21:43 Dose: 5,000 unit Dextrose/Sodium Chloride (D5-1/2ns -) 1,000 mls @ 75 mls/hr IV ASDIR PATRICK Last Admin: 02/16/18 21:48 Dose: Not Given Piperacillin Sod/Tazobactam (Sod 2.25 gm/ Dextrose) 50 mls @ 100 mls/hr IVPB Q8H-IV PATRICK PRN Reason: Protocol Last Admin: 02/16/18 18:03 Dose: 100 mls/hr Morphine Sulfate (Morphine Sulfate) 2 mg IVPUSH Q6H PRN PRN Reason: PAIN LEVEL 6-10 Last Admin: 02/16/18 21:43 Dose: 2 mg Ondansetron HCl (Zofran Injection) 4 mg IVPUSH Q6H PRN PRN Reason: NAUSEA AND/OR VOMITING Last Admin: 02/16/18 13:44 Dose: 4 mg - Objective Vital Signs: Vital Signs Temperature 98.1 F 02/16/18 21:00 Pulse Rate 60 02/16/18 21:00 Respiratory Rate 18 02/16/18 21:00 Blood Pressure 130/80 02/16/18 21:00 O2 Sat by Pulse Oximetry (%) 96 02/16/18 21:00 Labs: CBC, BMP 02/16/18 07:30 02/16/18 06:30
[2018-02-17] MEDS: PIPERACILLIN/TAZOB 2.25 GM 2.25 GM in DEXTROSE 5%-WATER - 50 ML IVPB SCH ×3 (01:14→17:56)
[2018-02-17] MEDS: morphine SULFATE 4 MG/ML VIAL IVPUSH PRN ×3 (02:52→18:03)
[2018-02-17] MEDS: DEXTROSE 5%-0.45% SALINE 1,000 ML IV SCH ×2 (04:57→06:00)
[2018-02-17] MEDS ORDERED: PT OWN MED DRAWER 7, Y5N ONE ×2 (10:05→17:46)
[2018-02-17] MEDS: HEPARIN NA (PORCINE) 5,000 UNITS/ML 1ML VIAL SQ SCH ×2 (10:14→22:39)
--- NOTE | 2018-02-17 13:40 | PN ---
Progress Note, Physician History of Present Illness: Pt seen and examined, events noted, labs/imaging reviewed. Pt still c/o Rt flank pain radiating to groin. Otherwise remains afebrile, without other complaints. CT abd/pelvis done, results are pending. - Current Medication List Current Medications: Active Medications Albuterol/Ipratropium (Duoneb -) 1 amp NEB Q6H PRN PRN Reason: SHORTNESS OF BREATH Heparin Sodium (Porcine) (Heparin -) 5,000 unit SQ BID [facility] Last Admin: 02/17/18 10:14 Dose: 5,000 unit Dextrose/Sodium Chloride (D5-1/2ns -) 1,000 mls @ 75 mls/hr IV ASDIR [facility] Last Admin: 02/17/18 06:00 Dose: 75 mls/hr Piperacillin Sod/Tazobactam (Sod 2.25 gm/ Dextrose) 50 mls @ 100 mls/hr IVPB Q8H-IV [facility] PRN Reason: Protocol Last Admin: 02/17/18 10:14 Dose: 100 mls/hr Morphine Sulfate (Morphine Sulfate) 2 mg IVPUSH Q6H PRN PRN Reason: PAIN LEVEL 6-10 Last Admin: 02/17/18 08:55 Dose: 2 mg Ondansetron HCl (Zofran Injection) 4 mg IVPUSH Q6H PRN PRN Reason: NAUSEA AND/OR VOMITING Last Admin: 02/16/18 13:44 Dose: 4 mg - Objective Vital Signs: Vital Signs Temperature 98.1 F 02/17/18 06:00 Pulse Rate 61 02/17/18 06:00 Respiratory Rate 18 02/17/18 06:00 Blood Pressure 138/73 02/17/18 06:00 O2 Sat by Pulse Oximetry (%) 96 02/16/18 21:00 Constitutional: Yes: No Distress, Calm Cardiovascular: Yes: Regular Rate and Rhythm Respiratory: Yes: CTA Bilaterally Gastrointestinal: Yes: Normal Bowel Sounds, Soft, Tenderness (Rt flank/groin pain) Genitourinary: Yes: Other (urostomy with clear, yellow urine) Musculoskeletal: Yes: WNL Extremities: Yes: WNL Neurological: Yes: Alert, Oriented Labs: CBC, BMP 02/16/18 07:30 02/16/18 06:30 Microbiology 02/14/18 21:20 Urine - Urine Clean Catch Urine Culture - Preliminary Staphylococcus Coagulase Neg - ....Imaging Cat Scan: Pending Problem List - Problems (1) Flank pain Code(s): R10.9 - UNSPECIFIED ABDOMINAL PAIN (2) Urinary tract infection Code(s): N39.0 - URINARY TRACT INFECTION, SITE NOT SPECIFIED Qualifiers: Urinary tract infection type: site unspecified Hematuria presence: with hematuria Qualified Code(s): N39.0 - Urinary tract infection, site not specified; R31.9 - Hematuria, unspecified; R31.9 - Hematuria, unspecified (3) History of nephrolithiasis Code(s): Z87.442 - PERSONAL HISTORY OF URINARY CALCULI (4) Renal insufficiency Code(s): N28.9 - DISORDER OF KIDNEY AND URETER, UNSPECIFIED Assessment/Plan 42 year old female with PMH of nephrolithiasis, CKD, urostomy bag, and ovarian cysts with c/o Rt flank radiating pain. UTI -- cont. antibiotics for now -- f/u results of CT scan pt currently afebrile, without leukocytosis continue monitor
--- NOTE | 2018-02-17 13:46 | PN ---
Progress Note, Physician Chief Complaint: Pt A&O x3; no chest pain or dyspnea. History of Present Illness: The patient is a 42-year-old black female, with a significant past medical of urostomy bag (2/2 repeated nephrolithiasis) and fibroids (s/p myomectomy), obesity, sedentary lifestyle, smoker, who presents to the ED with one week of right-sided flank pain and bilateral knee pain. The patient describes her flank pain as sharp, intermittent, radiating down to her right groin and right leg. This pain is similar to the pain she has experienced in the past with her right ovarian cyst. The patient's knee pain is constant and she has not been able to ambulate due to the pain. She denies any trauma to the area. She reports associated nausea, but no vomiting. She denies any history of gout. The patient denies any fever, chills, vomiting, diarrhea, or abdominal pain. Denies any shortness of breath or chest pain. Allergies: NKA PCP: Dr. Rayne Castillo - Current Medication List Current Medications: Active Medications Albuterol/Ipratropium (Duoneb -) 1 amp NEB Q6H PRN PRN Reason: SHORTNESS OF BREATH Heparin Sodium (Porcine) (Heparin -) 5,000 unit SQ BID [facility] Last Admin: 02/17/18 10:14 Dose: 5,000 unit Dextrose/Sodium Chloride (D5-1/2ns -) 1,000 mls @ 75 mls/hr IV ASDIR [facility] Last Admin: 02/17/18 06:00 Dose: 75 mls/hr Piperacillin Sod/Tazobactam (Sod 2.25 gm/ Dextrose) 50 mls @ 100 mls/hr IVPB Q8H-IV [facility] PRN Reason: Protocol Last Admin: 02/17/18 10:14 Dose: 100 mls/hr Morphine Sulfate (Morphine Sulfate) 2 mg IVPUSH Q6H PRN PRN Reason: PAIN LEVEL 6-10 Last Admin: 02/17/18 08:55 Dose: 2 mg Ondansetron HCl (Zofran Injection) 4 mg IVPUSH Q6H PRN PRN Reason: NAUSEA AND/OR VOMITING Last Admin: 02/16/18 13:44 Dose: 4 mg - Objective Vital Signs: Vital Signs Temperature 98.1 F 02/17/18 06:00 Pulse Rate 61 02/17/18 06:00 Respiratory Rate 18 02/17/18 06:00 Blood Pressure 138/73 02/17/18 06:00 O2 Sat by Pulse Oximetry (%) 96 02/16/18 21:00 Constitutional: Yes: Calm Eyes: Yes: WNL HENT: Yes: WNL Cardiovascular: Yes: S1, S2, S4 Respiratory: Yes: WNL Gastrointestinal: Yes: Soft, Abdomen, Obese ...Rectal Exam: Yes: Deferred Genitourinary: No: Anuria Breast(s): Yes: WNL, Nipple Inversion Extremities: Yes: WNL Edema: No Peripheral Pulses WNL: Yes Integumentary: Yes: Tattoos Neurological: Yes: WNL ...Motor Strength: WNL Psychiatric: Yes: WNL Labs: CBC, BMP 02/16/18 07:30 02/16/18 06:30 Problem List - Problems (1) Flank pain Code(s): R10.9 - UNSPECIFIED ABDOMINAL PAIN (2) Urinary tract infection Code(s): N39.0 - URINARY TRACT INFECTION, SITE NOT SPECIFIED Qualifiers: Urinary tract infection type: site unspecified Hematuria presence: with hematuria Qualified Code(s): N39.0 - Urinary tract infection, site not specified; R31.9 - Hematuria, unspecified; R31.9 - Hematuria, unspecified (3) Anemia Code(s): D64.9 - ANEMIA, UNSPECIFIED (4) CKD (chronic kidney disease) Code(s): N18.9 - CHRONIC KIDNEY DISEASE, UNSPECIFIED (5) History of nephrolithiasis Code(s): Z87.442 - PERSONAL HISTORY OF URINARY CALCULI (6) Left knee pain Code(s): M25.562 - PAIN IN LEFT KNEE Qualifiers: Chronicity: unspecified Qualified Code(s): M25.562 - Pain in left knee (7) Musculoskeletal pain Code(s): M79.1 - MYALGIA (8) Obstructive uropathy Code(s): N13.9 - OBSTRUCTIVE AND REFLUX UROPATHY, UNSPECIFIED (10) Smoking Assessment/Plan: Pt plans to quit. May benefit from nicotine patch. Code(s): F17.200 - NICOTINE DEPENDENCE, UNSPECIFIED, UNCOMPLICATED (11) Overweight Assessment/Plan: The benefits of a heart-healthy diet (and of avoiding sugar-rich drinks, many of which were on her table) were discussed. Code(s): E66.3 - OVERWEIGHT (12) Sedentary lifestyle Code(s): Z91.89 - OT PERSONAL RISK FACTORS, NOT ELSEWHERE CLASSIFIED (13) Sinus bradycardia Assessment/Plan: EKG: mild sinus bradycardia, with marked sinus arrhythmia. ECHO: normal LVEF; borderline RV enlargement; trace-mild TR. F/u TSH and lipids. Code(s): R00.1 - BRADYCARDIA, UNSPECIFIED
--- NOTE | 2018-02-17 17:27 | PN ---
Progress Note, Physician History of Present Illness: Pt seen and examined at bedside. She is awake and alert. She feels that the pain is a little bit better. - Current Medication List Current Medications: Active Medications Albuterol/Ipratropium (Duoneb -) 1 amp NEB Q6H PRN PRN Reason: SHORTNESS OF BREATH Heparin Sodium (Porcine) (Heparin -) 5,000 unit SQ BID [facility] Last Admin: 02/17/18 10:14 Dose: 5,000 unit Dextrose/Sodium Chloride (D5-1/2ns -) 1,000 mls @ 75 mls/hr IV ASDIR [facility] Last Admin: 02/17/18 06:00 Dose: 75 mls/hr Piperacillin Sod/Tazobactam (Sod 2.25 gm/ Dextrose) 50 mls @ 100 mls/hr IVPB Q8H-IV [facility] PRN Reason: Protocol Last Admin: 02/17/18 10:14 Dose: 100 mls/hr Morphine Sulfate (Morphine Sulfate) 2 mg IVPUSH Q6H PRN PRN Reason: PAIN LEVEL 6-10 Last Admin: 02/17/18 08:55 Dose: 2 mg Ondansetron HCl (Zofran Injection) 4 mg IVPUSH Q6H PRN PRN Reason: NAUSEA AND/OR VOMITING Last Admin: 02/16/18 13:44 Dose: 4 mg - Objective Vital Signs: Vital Signs Temperature 98.2 F 02/17/18 14:58 Pulse Rate 53 L 02/17/18 14:58 Respiratory Rate 18 02/17/18 14:58 Blood Pressure 111/61 02/17/18 14:58 O2 Sat by Pulse Oximetry (%) 96 02/17/18 09:00 Constitutional: Yes: Calm Eyes: Yes: Conjunctiva Clear HENT: Yes: Atraumatic Cardiovascular: Yes: S1, S2 Respiratory: Yes: CTA Bilaterally Gastrointestinal: Yes: Normal Bowel Sounds, Soft Genitourinary: Yes: Other (ileal conduit) Musculoskeletal: Yes: WNL Edema: No Integumentary: Yes: Tattoos Neurological: Yes: Oriented Psychiatric: Yes: Oriented Labs: CBC, BMP 02/16/18 07:30 02/16/18 06:30 Problem List - Problems (1) Flank pain Code(s): R10.9 - UNSPECIFIED ABDOMINAL PAIN (2) Urinary tract infection Code(s): N39.0 - URINARY TRACT INFECTION, SITE NOT SPECIFIED Qualifiers: Urinary tract infection type: site unspecified Hematuria presence: with hematuria Qualified Code(s): N39.0 - Urinary tract infection, site not specified; R31.9 - Hematuria, unspecified; R31.9 - Hematuria, unspecified (3) CKD (chronic kidney disease) Code(s): N18.9 - CHRONIC KIDNEY DISEASE, UNSPECIFIED Assessment/Plan Current Medications Generic Name Dose Route Start Last Admin Trade Name Freq PRN Reason Stop Dose Admin Albuterol/Ipratropium 1 amp 02/15/18 02:08 Duoneb - NEB Q6H PRN SHORTNESS OF BREATH Heparin Sodium (Porcine) 5,000 unit 02/15/18 10:00 02/17/18 10:14 Heparin - SQ 5,000 unit BID [facility] Administration Dextrose/Sodium Chloride 1,000 mls @ 75 mls/hr 02/15/18 02:15 02/17/18 06:00 D5-1/2ns - IV 75 mls/hr ASDIR PATRICK Administration Piperacillin Sod/Tazobactam 50 mls @ 100 mls/hr 02/15/18 18:00 02/17/18 10:14 Sod 2.25 gm/ Dextrose IVPB 100 mls/hr Q8H-IV [facility] Administration Protocol Morphine Sulfate 2 mg 02/15/18 22:10 02/17/18 08:55 Morphine Sulfate IVPUSH 2 mg Q6H PRN Administration PAIN LEVEL 6-10 Ondansetron HCl 4 mg 02/16/18 00:22 02/16/18 13:44 Zofran Injection IVPUSH 4 mg Q6H PRN Administration NAUSEA AND/OR VOMITING Impression 1. CKD 2. hydronephrosis 3. uti 4. ovarian cysts 5. anemia Plan - check labs - renal function has been stable - urology eval - follow up ct scan - cont care for ileal conduit - will need outpt renal workup - will follow Dr Montgomery
--- NOTE | 2018-02-17 17:34 | EKG ---
Test Reason : Blood Pressure : / mmHG Vent. Rate : 058 BPM Atrial Rate : 058 BPM P-R Int : 168 ms QRS Dur : 084 ms QT Int : 422 ms P-R-T Axes : 043 039 043 degrees QTc Int : 414 ms SINUS BRADYCARDIA WITH MARKED SINUS ARRHYTHMIA ANTEROSEPTAL INFARCT (CITED ON OR BEFORE 17-SEP-2013) ABNORMAL ECG WHEN COMPARED WITH ECG OF 25-JAN-2018 00:37, NO SIGNIFICANT CHANGE WAS FOUND Confirmed by MD LUGO MOYSES ([id number]) on 02/17/2018 5:33:40 PM Referred By: Confirmed By:GRACE LUGO MD
--- NOTE | 2018-02-17 20:02 | PN ---
Progress Note, Physician - Current Medication List Current Medications: Active Medications Albuterol/Ipratropium (Duoneb -) 1 amp NEB Q6H PRN PRN Reason: SHORTNESS OF BREATH Heparin Sodium (Porcine) (Heparin -) 5,000 unit SQ BID [facility] Last Admin: 02/17/18 10:14 Dose: 5,000 unit Dextrose/Sodium Chloride (D5-1/2ns -) 1,000 mls @ 75 mls/hr IV ASDIR [facility] Last Admin: 02/17/18 06:00 Dose: 75 mls/hr Piperacillin Sod/Tazobactam (Sod 2.25 gm/ Dextrose) 50 mls @ 100 mls/hr IVPB Q8H-IV [facility] PRN Reason: Protocol Last Admin: 02/17/18 17:56 Dose: 100 mls/hr Morphine Sulfate (Morphine Sulfate) 2 mg IVPUSH Q6H PRN PRN Reason: PAIN LEVEL 6-10 Last Admin: 02/17/18 18:03 Dose: 2 mg Ondansetron HCl (Zofran Injection) 4 mg IVPUSH Q6H PRN PRN Reason: NAUSEA AND/OR VOMITING Last Admin: 02/16/18 13:44 Dose: 4 mg - Objective Vital Signs: Vital Signs Temperature 98.7 F 02/17/18 17:40 Pulse Rate 62 02/17/18 17:40 Respiratory Rate 18 02/17/18 17:40 Blood Pressure 129/73 02/17/18 17:40 O2 Sat by Pulse Oximetry (%) 96 02/17/18 09:00 Labs: CBC, BMP 02/16/18 07:30 02/16/18 06:30
[2018-02-18] MEDS: morphine SULFATE 4 MG/ML VIAL IVPUSH PRN ×3 (00:25→21:11)
[2018-02-18] MEDS: DEXTROSE 5%-0.45% SALINE 1,000 ML IV SCH (03:22)
[2018-02-18] MEDS: PIPERACILLIN/TAZOB 2.25 GM 2.25 GM in DEXTROSE 5%-WATER - 50 ML IVPB SCH ×3 (03:25→18:25)
[2018-02-18] MEDS ORDERED: morphine SULFATE 4 MG/ML VIAL IVPUSH ONE (04:45)
[2018-02-18 08:44] LABS: BASO % 0.4 % (0-2.0); EOS % 7.5 % (0-4.5); HEMATOCRIT 38.2 % (32.4-45.2); HEMOGLOBIN 12.8 GM/dL (10.7-15.3); LYMPH % 23.1 % (8-40); MCH 30.2 pg (25.7-33.7); MCHC 33.4 g/dl (32.0-36.0); MEAN CELL VOLUME 90.3 fl (80-96); MEAN PLT VOLUME 9.5 fl (7.5-11.1); MONO % 5.6 % (3.8-10.2); NEUT % 63.4 % (42.8-82.8); PLATELET COUNT 200 K/MM3 (134-434); RBC 4.23 M/mm3 (3.60-5.2); RDW 15.5 % (11.6-15.6)
[2018-02-18 09:29] LABS: ANION GAP 9 (8-16); BLOOD UREA NITROGEN 15 mg/dL (7-18); CALCIUM 8.6 mg/dL (8.5-10.1); CHLORIDE 111 mmol/L (98-107); CO2 22 mmol/L (21-32); CREATININE 1.7 mg/dL (0.55-1.02); GLUCOSE,RANDOM 80 mg/dL (74-106); POTASSIUM 4.2 mmol/L (3.5-5.1); SODIUM 142 mmol/L (136-145)
[2018-02-18] MEDS ORDERED: PT OWN MED DRAWER 7, Y5N ONE ×2 (09:42→17:34)
[2018-02-18] MEDS: HEPARIN NA (PORCINE) 5,000 UNITS/ML 1ML VIAL SQ SCH ×2 (09:48→21:11)
--- NOTE | 2018-02-18 12:38 | PN ---
Progress Note, Physician History of Present Illness: The patient is a 42-year-old black female, with a significant past medical of urostomy bag (2/2 repeated nephrolithiasis) and fibroids (s/p myomectomy), obesity, sedentary lifestyle, smoker, who presents to the ED with one week of right-sided flank pain and bilateral knee pain. The patient describes her flank pain as sharp, intermittent, radiating down to her right groin and right leg. This pain is similar to the pain she has experienced in the past with her right ovarian cyst. The patient's knee pain is constant and she has not been able to ambulate due to the pain. She denies any trauma to the area. She reports associated nausea, but no vomiting. She denies any history of gout. The patient denies any fever, chills, vomiting, diarrhea, or abdominal pain. Denies any shortness of breath or chest pain. Allergies: NKA PCP: Dr. Rayne Castillo - Current Medication List Current Medications: Active Medications Albuterol/Ipratropium (Duoneb -) 1 amp NEB Q6H PRN PRN Reason: SHORTNESS OF BREATH Heparin Sodium (Porcine) (Heparin -) 5,000 unit SQ BID [facility] Last Admin: 02/18/18 09:48 Dose: 5,000 unit Dextrose/Sodium Chloride (D5-1/2ns -) 1,000 mls @ 75 mls/hr IV ASDIR [facility] Last Admin: 02/18/18 03:22 Dose: Not Given Piperacillin Sod/Tazobactam (Sod 2.25 gm/ Dextrose) 50 mls @ 100 mls/hr IVPB Q8H-IV [facility] PRN Reason: Protocol Last Admin: 02/18/18 09:48 Dose: 100 mls/hr Morphine Sulfate (Morphine Sulfate) 4 mg IVPUSH Q6H PRN PRN Reason: PAIN LEVEL 6-10 Ondansetron HCl (Zofran Injection) 4 mg IVPUSH Q6H PRN PRN Reason: NAUSEA AND/OR VOMITING Last Admin: 02/16/18 13:44 Dose: 4 mg - Objective Vital Signs: Vital Signs Temperature 98.3 F 02/18/18 09:00 Pulse Rate 65 02/18/18 09:00 Respiratory Rate 18 02/18/18 09:00 Blood Pressure 116/66 02/18/18 09:00 O2 Sat by Pulse Oximetry (%) 96 02/18/18 09:00 Integumentary: Yes: Tattoos Labs: CBC, BMP 02/18/18 08:26 02/18/18 07:00 Problem List - Problems (1) Flank pain Code(s): R10.9 - UNSPECIFIED ABDOMINAL PAIN (2) Urinary tract infection Code(s): N39.0 - URINARY TRACT INFECTION, SITE NOT SPECIFIED Qualifiers: Urinary tract infection type: site unspecified Hematuria presence: with hematuria Qualified Code(s): N39.0 - Urinary tract infection, site not specified; R31.9 - Hematuria, unspecified; R31.9 - Hematuria, unspecified (3) Anemia Code(s): D64.9 - ANEMIA, UNSPECIFIED (4) CKD (chronic kidney disease) Code(s): N18.9 - CHRONIC KIDNEY DISEASE, UNSPECIFIED (5) History of nephrolithiasis Code(s): Z87.442 - PERSONAL HISTORY OF URINARY CALCULI (6) Left knee pain Code(s): M25.562 - PAIN IN LEFT KNEE Qualifiers: Chronicity: unspecified Qualified Code(s): M25.562 - Pain in left knee (7) Musculoskeletal pain Code(s): M79.1 - MYALGIA (8) Obstructive uropathy Code(s): N13.9 - OBSTRUCTIVE AND REFLUX UROPATHY, UNSPECIFIED (10) Smoking Code(s): F17.200 - NICOTINE DEPENDENCE, UNSPECIFIED, UNCOMPLICATED (11) Overweight Code(s): E66.3 - OVERWEIGHT (12) Sedentary lifestyle Code(s): Z91.89 - OT PERSONAL RISK FACTORS, NOT ELSEWHERE CLASSIFIED (13) Sinus bradycardia Code(s): R00.1 - BRADYCARDIA, UNSPECIFIED
--- NOTE | 2018-02-18 16:29 | PN ---
Progress Note, Physician History of Present Illness: Pt seen and examined at bedside. She is awake and alert. She still complains of pain. - Current Medication List Current Medications: Active Medications Albuterol/Ipratropium (Duoneb -) 1 amp NEB Q6H PRN PRN Reason: SHORTNESS OF BREATH Heparin Sodium (Porcine) (Heparin -) 5,000 unit SQ BID [facility] Last Admin: 02/18/18 09:48 Dose: 5,000 unit Dextrose/Sodium Chloride (D5-1/2ns -) 1,000 mls @ 75 mls/hr IV ASDIR [facility] Last Admin: 02/18/18 03:22 Dose: Not Given Piperacillin Sod/Tazobactam (Sod 2.25 gm/ Dextrose) 50 mls @ 100 mls/hr IVPB Q8H-IV [facility] PRN Reason: Protocol Last Admin: 02/18/18 09:48 Dose: 100 mls/hr Morphine Sulfate (Morphine Sulfate) 4 mg IVPUSH Q6H PRN PRN Reason: PAIN LEVEL 6-10 Last Admin: 02/18/18 12:59 Dose: 4 mg Ondansetron HCl (Zofran Injection) 4 mg IVPUSH Q6H PRN PRN Reason: NAUSEA AND/OR VOMITING Last Admin: 02/16/18 13:44 Dose: 4 mg - Objective Vital Signs: Vital Signs Temperature 98.6 F 02/18/18 15:45 Pulse Rate 68 02/18/18 15:45 Respiratory Rate 20 02/18/18 15:45 Blood Pressure 110/64 02/18/18 15:45 O2 Sat by Pulse Oximetry (%) 96 02/18/18 09:00 Constitutional: Yes: Calm Eyes: Yes: Conjunctiva Clear HENT: Yes: Atraumatic Cardiovascular: Yes: S1, S2 Respiratory: Yes: CTA Bilaterally Gastrointestinal: Yes: Soft Genitourinary: Yes: Other (ileal conduit) Musculoskeletal: Yes: WNL Edema: No Integumentary: Yes: Tattoos Neurological: Yes: Oriented Psychiatric: Yes: Oriented Labs: CBC, BMP 02/18/18 08:26 02/18/18 07:00 Problem List - Problems (1) Flank pain Code(s): R10.9 - UNSPECIFIED ABDOMINAL PAIN (2) Urinary tract infection Code(s): N39.0 - URINARY TRACT INFECTION, SITE NOT SPECIFIED Qualifiers: Urinary tract infection type: site unspecified Hematuria presence: with hematuria Qualified Code(s): N39.0 - Urinary tract infection, site not specified; R31.9 - Hematuria, unspecified; R31.9 - Hematuria, unspecified (3) CKD (chronic kidney disease) Code(s): N18.9 - CHRONIC KIDNEY DISEASE, UNSPECIFIED Assessment/Plan Current Medications Generic Name Dose Route Start Last Admin Trade Name Freq PRN Reason Stop Dose Admin Albuterol/Ipratropium 1 amp 02/15/18 02:08 Duoneb - NEB Q6H PRN SHORTNESS OF BREATH Heparin Sodium (Porcine) 5,000 unit 02/15/18 10:00 02/18/18 09:48 Heparin - SQ 5,000 unit BID [facility] Administration Dextrose/Sodium Chloride 1,000 mls @ 75 mls/hr 02/15/18 02:15 02/18/18 03:22 D5-1/2ns - IV Not Given ASDIR PATRICK Piperacillin Sod/Tazobactam 50 mls @ 100 mls/hr 02/15/18 18:00 02/18/18 09:48 Sod 2.25 gm/ Dextrose IVPB 100 mls/hr Q8H-IV [facility]ICK Administration Protocol Morphine Sulfate 4 mg 02/18/18 04:43 02/18/18 12:59 Morphine Sulfate IVPUSH 4 mg Q6H PRN Administration PAIN LEVEL 6-10 Ondansetron HCl 4 mg 02/16/18 00:22 02/16/18 13:44 Zofran Injection IVPUSH 4 mg Q6H PRN Administration NAUSEA AND/OR VOMITING Impression 1. CKD 2. hydronephrosis 3. uti 4. ovarian cysts 5. anemia 6. adnexal cyst 7. nephrolithiasis Plan - renal function is stable - change fluids from d51/2 to 1/2 as she is eating - urology eval - clean in places operator eval - cont care for ileal conduit - will need outpt renal workup - will follow Dr Montgomery
[2018-02-18] MEDS ORDERED: SODIUM CHLORIDE 0.45% 1,000 ML IV SCH (16:30)
--- NOTE | 2018-02-18 16:36 | PN ---
Progress Note, Physician History of Present Illness: Pt remains afebrile. CT abd/pelvis results noted. Pt with pain in Rt flank extending down possibly attributable to findings. No new complaints. - Current Medication List Current Medications: Active Medications Albuterol/Ipratropium (Duoneb -) 1 amp NEB Q6H PRN PRN Reason: SHORTNESS OF BREATH Heparin Sodium (Porcine) (Heparin -) 5,000 unit SQ BID [facility] Last Admin: 02/18/18 09:48 Dose: 5,000 unit Piperacillin Sod/Tazobactam (Sod 2.25 gm/ Dextrose) 50 mls @ 100 mls/hr IVPB Q8H-IV [facility] PRN Reason: Protocol Last Admin: 02/18/18 09:48 Dose: 100 mls/hr Morphine Sulfate (Morphine Sulfate) 4 mg IVPUSH Q6H PRN PRN Reason: PAIN LEVEL 6-10 Last Admin: 02/18/18 12:59 Dose: 4 mg Ondansetron HCl (Zofran Injection) 4 mg IVPUSH Q6H PRN PRN Reason: NAUSEA AND/OR VOMITING Last Admin: 02/16/18 13:44 Dose: 4 mg - Objective Vital Signs: Vital Signs Temperature 98.6 F 02/18/18 15:45 Pulse Rate 68 02/18/18 15:45 Respiratory Rate 20 02/18/18 15:45 Blood Pressure 110/64 02/18/18 15:45 O2 Sat by Pulse Oximetry (%) 96 02/18/18 09:00 Constitutional: Yes: No Distress, Calm Cardiovascular: Yes: Regular Rate and Rhythm Respiratory: Yes: Regular Gastrointestinal: Yes: Normal Bowel Sounds, Soft Genitourinary: Yes: Other (ilial conduit , Rt flank tenderness) Extremities: Yes: WNL Neurological: Yes: Alert, Oriented Labs: CBC, BMP 02/18/18 08:26 02/18/18 07:00 Problem List - Problems (1) Flank pain Code(s): R10.9 - UNSPECIFIED ABDOMINAL PAIN (2) Urinary tract infection Code(s): N39.0 - URINARY TRACT INFECTION, SITE NOT SPECIFIED Qualifiers: Urinary tract infection type: site unspecified Hematuria presence: with hematuria Qualified Code(s): N39.0 - Urinary tract infection, site not specified; R31.9 - Hematuria, unspecified; R31.9 - Hematuria, unspecified (3) History of nephrolithiasis Code(s): Z87.442 - PERSONAL HISTORY OF URINARY CALCULI (4) Renal insufficiency Code(s): N28.9 - DISORDER OF KIDNEY AND URETER, UNSPECIFIED Assessment/Plan 42 year old female with PMH of nephrolithiasis, CKD, cystectomy/ileal conduit, and ovarian cysts with c/o Rt flank radiating pain. CT abd/pelvis with Rt renal calculus, Rt adnexal cyst UTI Nephrolithiasis B/L hydronephrosis Adnexal cyst -- cont. antibiotics for now urine culture -- HORTICULTURAL AGENT eval, urology eval pt currently afebrile, without leukocytosis
--- NOTE | 2018-02-18 23:14 | PN ---
Progress Note, Physician History of Present Illness: Pt complains of lt flank pain - Current Medication List Current Medications: Active Medications Albuterol/Ipratropium (Duoneb -) 1 amp NEB Q6H PRN PRN Reason: SHORTNESS OF BREATH Heparin Sodium (Porcine) (Heparin -) 5,000 unit SQ BID [facility] Last Admin: 02/18/18 21:11 Dose: 5,000 unit Piperacillin Sod/Tazobactam (Sod 2.25 gm/ Dextrose) 50 mls @ 100 mls/hr IVPB Q8H-IV [facility]ICK PRN Reason: Protocol Last Admin: 02/18/18 18:25 Dose: 100 mls/hr Sodium Chloride (1/2 Normal Saline) 1,000 mls @ 50 mls/hr IV ASDIR [facility]RICK Stop: 02/19/18 16:29 Last Admin: 02/18/18 21:12 Dose: 50 mls/hr Morphine Sulfate (Morphine Sulfate) 4 mg IVPUSH Q6H PRN PRN Reason: PAIN LEVEL 6-10 Last Admin: 02/18/18 21:11 Dose: 4 mg Ondansetron HCl (Zofran Injection) 4 mg IVPUSH Q6H PRN PRN Reason: NAUSEA AND/OR VOMITING Last Admin: 02/16/18 13:44 Dose: 4 mg - Objective Vital Signs: Vital Signs Temperature 98.1 F 02/18/18 17:20 Pulse Rate 62 02/18/18 17:20 Respiratory Rate 20 02/18/18 17:20 Blood Pressure 148/85 02/18/18 17:20 O2 Sat by Pulse Oximetry (%) 96 02/18/18 09:00 Constitutional: Yes: Well Nourished Neck: Yes: WNL, Supple Cardiovascular: Yes: WNL, Regular Rate and Rhythm Respiratory: Yes: WNL, Regular, CTA Bilaterally Gastrointestinal: Yes: WNL, Normal Bowel Sounds, Soft, Abdomen, Obese, Other ((+ ) RLQ ileal conduit) Labs: CBC, BMP 02/18/18 08:26 02/18/18 07:00 Problem List - Problems (1) Abdominal pain Assessment/Plan: Pt still w/ lt flank pain and RLQ abdominal pain Pt still requiring IV morphine CT scan abd/pelvis showed Rt adnexal cyst Check pelvic consult GEOGRAPHY DEPARTMENT CHAIR consult Will reconsult GI and uro Code(s): R10.9 - UNSPECIFIED ABDOMINAL PAIN (2) Urinary tract infection Assessment/Plan: Urine culture (+) for staph coag negative Cont IV zosyn as per ID Code(s): N39.0 - URINARY TRACT INFECTION, SITE NOT SPECIFIED Qualifiers: Urinary tract infection type: site unspecified Hematuria presence: with hematuria Qualified Code(s): N39.0 - Urinary tract infection, site not specified; R31.9 - Hematuria, unspecified; R31.9 - Hematuria, unspecified (3) Anemia Assessment/Plan: Due to CKD Code(s): D64.9 - ANEMIA, UNSPECIFIED (4) CKD (chronic kidney disease) Assessment/Plan: Cont to monitor Code(s): N18.9 - CHRONIC KIDNEY DISEASE, UNSPECIFIED
[2018-02-19] MEDS: PIPERACILLIN/TAZOB 2.25 GM 2.25 GM in DEXTROSE 5%-WATER - 50 ML IVPB SCH ×3 (01:40→18:29)
[2018-02-19] MEDS: morphine SULFATE 4 MG/ML VIAL IVPUSH PRN ×4 (03:07→21:42)
[2018-02-19 08:06] LABS: BASO % 0.6 % (0-2.0); EOS % 7.4 % (0-4.5); HEMATOCRIT 37.7 % (32.4-45.2); HEMOGLOBIN 12.8 GM/dL (10.7-15.3); LYMPH % 24.5 % (8-40); MCH 30.2 pg (25.7-33.7); MEAN PLT VOLUME 9.2 fl (7.5-11.1); MONO % 5.8 % (3.8-10.2); NEUT % 61.7 % (42.8-82.8); PLATELET COUNT 203 K/MM3 (134-434); RBC 4.23 M/mm3 (3.60-5.2); RDW 15.6 % (11.6-15.6)
[2018-02-19 09:48] LABS: ALBUMIN 2.9 g/dl (3.4-5.0); ANION GAP 7 (8-16); BLOOD UREA NITROGEN 15 mg/dL (7-18); CALCIUM 8.6 mg/dL (8.5-10.1); CHLORIDE 111 mmol/L (98-107); CO2 24 mmol/L (21-32); GLUCOSE,RANDOM 75 mg/dL (74-106); POTASSIUM 3.9 mmol/L (3.5-5.1); SODIUM 142 mmol/L (136-145)
[2018-02-19 09:51] LABS: ALK PHOS 61 U/L (45-117); BILIRUBIN,TOTAL 0.2 mg/dL (0.2-1.0); CREATININE 1.8 mg/dL (0.55-1.02); SGOT/AST 37 U/L (15-37); SGPT/ALT 42 U/L (12-78); TOT PROT 5.9 g/dl (6.4-8.2)
[2018-02-19] MEDS ORDERED: PT OWN MED DRAWER 7, Y5N ONE ×2 (10:01→18:21)
[2018-02-19] MEDS: HEPARIN NA (PORCINE) 5,000 UNITS/ML 1ML VIAL SQ SCH ×2 (10:06→21:43)
--- NOTE | 2018-02-19 13:07 | PN ---
Physical Exam: SUBJECTIVE: Patient seen and examined at the bedside. c/o of right flank pain that radiates to her right thigh OBJECTIVE: Medical coverage for Dr. Cote will order transvaginal u/s as pelvic us requires a full bladder and pt has a urostomy Vital Signs Period Temp Pulse Resp BP Sys/Minor Pulse Ox Last 24 Hr 98 F-98.6 F 52-82 20-20 110-148/57-85 95-96 GENERAL: The patient is awake, alert, and fully oriented, in no acute distress. HEAD: Normal with no signs of trauma. EYES: PERRL, extraocular movements intact, sclera anicteric, conjunctiva clear. No ptosis. ENT: Ears normal, nares patent, oropharynx clear without exudates, moist mucous membranes. NECK: Trachea midline, full range of motion, supple. LUNGS: Breath sounds equal, diminished bilaterally ABDOMEN: Soft, nontender, ostomy, pink stoma EXTREMITIES: no edema, right heal planter pain NEUROLOGICAL:Normal speech, gait not observed. PSYCH: Normal mood, normal affect. SKIN: Warm, dry, normal turgor, no rashes or lesions noted Laboratory Results - last 24 hr 02/19/18 02/19/18 06:30 06:30 WBC 6.0 RBC 4.23 Hgb 12.8 Hct 37.7 MCV 89.0 MCH 30.2 MCHC 34.0 RDW 15.6 Plt Count 203 MPV 9.2 Neutrophils % 61.7 Lymphocytes % 24.5 Monocytes % 5.8 Eosinophils % 7.4 H Basophils % 0.6 Sodium 142 Potassium 3.9 Chloride 111 H Carbon Dioxide 24 Anion Gap 7 L BUN 15 Creatinine 1.8 H Creat Clearance w eGFR 30.71 Random Glucose 75 Calcium 8.6 Total Bilirubin 0.2 D AST 37 ALT 42 Alkaline Phosphatase 61 Total Protein 5.9 L Albumin 2.9 L Active Medications Generic Name Dose Route Start Last Admin Trade Name Freq PRN Reason Stop Dose Admin Albuterol/Ipratropium 1 amp 02/15/18 02:08 Duoneb - NEB Q6H PRN SHORTNESS OF BREATH Heparin Sodium (Porcine) 5,000 unit 02/15/18 10:00 02/19/18 10:06 Heparin - SQ 5,000 unit BID PATRICK Administration Piperacillin Sod/Tazobactam 50 mls @ 100 mls/hr 02/15/18 18:00 02/19/18 10:06 Sod 2.25 gm/ Dextrose IVPB 100 mls/hr Q8H-IV PATRICK Administration Protocol Sodium Chloride 1,000 mls @ 50 mls/hr 02/18/18 16:30 02/18/18 21:12 1/2 Normal Saline IV 02/19/18 16:29 50 mls/hr ASDIR PATRICK Administration Morphine Sulfate 4 mg 02/18/18 04:43 02/19/18 08:58 Morphine Sulfate IVPUSH 4 mg Q6H PRN Administration PAIN LEVEL 6-10 Ondansetron HCl 4 mg 02/16/18 00:22 02/16/18 13:44 Zofran Injection IVPUSH 4 mg Q6H PRN Administration NAUSEA AND/OR VOMITING ASSESSMENT/PLAN: Patient is a 42 year old female with a significant past medical history of nephrolithiasis s/p urostomy bag and ovarian cysts. She presents to the ED on with c/o of right flank pain and b/l knee pain. The patient states that her flank pain started 1 week prior to admission and is intermittent, sharp, starts in her flank and radiates to her groin. She states that it feels more like her ovarian cysts than her nephrolithiasis. The patient also complains of b/l knee pain, L > R which she describes as a swelling pain which includes difficulty walking. GI: Abdominal pain/RLQ Patient still with right flank pain Morphine 4mg IV for pain CT scan ABpelvis shows right adnexal cyst PROVER consulted Transvaginal u/s ordered and pending GI and Urology consulted by primary MD Bilateral knee pain, acute on chronic Seen by ortho Will need continued follow up outpt Physical therapy ordered : UTI, acute Urine culture (+) for staph coag negative Cont IV zosyn as per ID Monitor labs, vitals Urology consult Heme: Anemia, chronic Hx of CKD Daily CBC F.E.N. Fluids: 11/21 NS @ 50 Electrolyes: monitor Nutriiton: renal diet Prophy: PT eval Heparin BID Visit type - Emergency Visit Emergency Visit: Yes ED Registration Date: 02/14/18 Care time: The patient presented to the Emergency Department on the above date and was hospitalized for further evaluation of their emergent condition. - New Patient This patient is new to me today: Yes Date on this admission: 02/20/18 - Critical Care Critical Care patient: No - Discharge Referral Referred to [facility] Med P.C.: No
--- NOTE | 2018-02-19 13:34 | PN ---
Progress Note, Physician History of Present Illness: patient stable but c/o severe pain in the rt inguinal region ct scan result noted awaiting gynac to see the patient febrile stable - Current Medication List Current Medications: Active Medications Albuterol/Ipratropium (Duoneb -) 1 amp NEB Q6H PRN PRN Reason: SHORTNESS OF BREATH Heparin Sodium (Porcine) (Heparin -) 5,000 unit SQ BID PATRICK Last Admin: 02/19/18 10:06 Dose: 5,000 unit Piperacillin Sod/Tazobactam (Sod 2.25 gm/ Dextrose) 50 mls @ 100 mls/hr IVPB Q8H-IV PATRICK PRN Reason: Protocol Last Admin: 02/19/18 10:06 Dose: 100 mls/hr Sodium Chloride (1/2 Normal Saline) 1,000 mls @ 50 mls/hr IV ASDIR PATRICK Stop: 02/19/18 16:29 Last Admin: 02/18/18 21:12 Dose: 50 mls/hr Morphine Sulfate (Morphine Sulfate) 4 mg IVPUSH Q6H PRN PRN Reason: PAIN LEVEL 6-10 Last Admin: 02/19/18 08:58 Dose: 4 mg Ondansetron HCl (Zofran Injection) 4 mg IVPUSH Q6H PRN PRN Reason: NAUSEA AND/OR VOMITING Last Admin: 02/16/18 13:44 Dose: 4 mg - Objective Vital Signs: Vital Signs Temperature 98 F 02/19/18 09:58 Pulse Rate 52 L 02/19/18 09:58 Respiratory Rate 20 02/19/18 06:00 Blood Pressure 123/57 02/19/18 09:58 O2 Sat by Pulse Oximetry (%) 95 02/19/18 09:00 Constitutional: Yes: No Distress, Calm Respiratory: Yes: Regular, CTA Bilaterally Gastrointestinal: Yes: Normal Bowel Sounds, Soft Genitourinary: Yes: Other (urostomy in place) Musculoskeletal: Yes: WNL Extremities: Yes: WNL Neurological: Yes: Alert, Oriented Psychiatric: Yes: Alert, Oriented Labs: CBC, BMP 02/19/18 06:30 02/19/18 06:30 Assessment/Plan Problem List - Problems (1) Flank pain Code(s): R10.9 - UNSPECIFIED ABDOMINAL PAIN (2) Urinary tract infection Code(s): N39.0 - URINARY TRACT INFECTION, SITE NOT SPECIFIED Qualifiers: Urinary tract infection type: site unspecified Hematuria presence: with hematuria Qualified Code(s): N39.0 - Urinary tract infection, site not specified; R31.9 - Hematuria, unspecified; R31.9 - Hematuria, unspecified (3) CKD (chronic kidney disease) Code(s): N18.9 - CHRONIC KIDNEY DISEASE, UNSPECIFIED plan continue abx will await for gynac evaluation abx can be stopped after tomorrow
--- NOTE | 2018-02-19 16:43 | PN ---
Progress Note, Physician History of Present Illness: Pt seen and examined at bedside. She is awake and alert. She went for the ultrasound. She still has right adnexal pain. - Current Medication List Current Medications: Active Medications Albuterol/Ipratropium (Duoneb -) 1 amp NEB Q6H PRN PRN Reason: SHORTNESS OF BREATH Heparin Sodium (Porcine) (Heparin -) 5,000 unit SQ BID PATRICK Last Admin: 02/19/18 10:06 Dose: 5,000 unit Piperacillin Sod/Tazobactam (Sod 2.25 gm/ Dextrose) 50 mls @ 100 mls/hr IVPB Q8H-IV PATRICK PRN Reason: Protocol Last Admin: 02/19/18 10:06 Dose: 100 mls/hr Morphine Sulfate (Morphine Sulfate) 4 mg IVPUSH Q6H PRN PRN Reason: PAIN LEVEL 6-10 Last Admin: 02/19/18 15:46 Dose: 4 mg Ondansetron HCl (Zofran Injection) 4 mg IVPUSH Q6H PRN PRN Reason: NAUSEA AND/OR VOMITING Last Admin: 02/16/18 13:44 Dose: 4 mg - Objective Vital Signs: Vital Signs Temperature 97.8 F 02/19/18 15:26 Pulse Rate 57 L 02/19/18 15:26 Respiratory Rate 20 02/19/18 15:26 Blood Pressure 133/65 02/19/18 15:26 O2 Sat by Pulse Oximetry (%) 95 02/19/18 09:00 Constitutional: Yes: Calm Eyes: Yes: Conjunctiva Clear HENT: Yes: Atraumatic Cardiovascular: Yes: S1, S2 Respiratory: Yes: CTA Bilaterally Gastrointestinal: Yes: Normal Bowel Sounds, Soft Genitourinary: Yes: Other (ileal conduit) Musculoskeletal: Yes: WNL Edema: No Integumentary: Yes: Tattoos Neurological: Yes: Oriented Psychiatric: Yes: Oriented Labs: CBC, BMP 02/19/18 06:30 02/19/18 06:30 Problem List - Problems (1) Flank pain Code(s): R10.9 - UNSPECIFIED ABDOMINAL PAIN (2) Urinary tract infection Code(s): N39.0 - URINARY TRACT INFECTION, SITE NOT SPECIFIED Qualifiers: Urinary tract infection type: site unspecified Hematuria presence: with hematuria Qualified Code(s): N39.0 - Urinary tract infection, site not specified; R31.9 - Hematuria, unspecified; R31.9 - Hematuria, unspecified (3) CKD (chronic kidney disease) Code(s): N18.9 - CHRONIC KIDNEY DISEASE, UNSPECIFIED Assessment/Plan Current Medications Generic Name Dose Route Start Last Admin Trade Name Freq PRN Reason Stop Dose Admin Albuterol/Ipratropium 1 amp 02/15/18 02:08 Duoneb - NEB Q6H PRN SHORTNESS OF BREATH Heparin Sodium (Porcine) 5,000 unit 02/15/18 10:00 02/19/18 10:06 Heparin - SQ 5,000 unit BID PATRICK Administration Piperacillin Sod/Tazobactam 50 mls @ 100 mls/hr 02/15/18 18:00 02/19/18 10:06 Sod 2.25 gm/ Dextrose IVPB 100 mls/hr Q8H-IV PATRICK Administration Protocol Morphine Sulfate 4 mg 02/18/18 04:43 02/19/18 15:46 Morphine Sulfate IVPUSH 4 mg Q6H PRN Administration PAIN LEVEL 6-10 Ondansetron HCl 4 mg 02/16/18 00:22 02/16/18 13:44 Zofran Injection IVPUSH 4 mg Q6H PRN Administration NAUSEA AND/OR VOMITING Impression 1. CKD 2. hydronephrosis 3. uti 4. ovarian cysts 5. anemia 6. adnexal cyst 7. nephrolithiasis Plan - repeat labs in am - pt will need urology eval - follow up ultrasound report - [employer] gricel - cont care for ileal conduit - will need outpt renal workup - will follow Dr Montgomery
--- NOTE | 2018-02-19 17:05 | PN ---
Progress Note, Physician History of Present Illness: The patient is a 42-year-old black female, with a significant past medical of urostomy bag (2/2 repeated nephrolithiasis) and fibroids (s/p myomectomy), obesity, sedentary lifestyle, smoker, who presents to the ED with one week of right-sided flank pain and bilateral knee pain. The patient describes her flank pain as sharp, intermittent, radiating down to her right groin and right leg. This pain is similar to the pain she has experienced in the past with her right ovarian cyst. The patient's knee pain is constant and she has not been able to ambulate due to the pain. She denies any trauma to the area. She reports associated nausea, but no vomiting. She denies any history of gout. The patient denies any fever, chills, vomiting, diarrhea, or abdominal pain. Denies any shortness of breath or chest pain. Allergies: NKA PCP: Dr. Rayne Castillo - Current Medication List Current Medications: Active Medications Albuterol/Ipratropium (Duoneb -) 1 amp NEB Q6H PRN PRN Reason: SHORTNESS OF BREATH Heparin Sodium (Porcine) (Heparin -) 5,000 unit SQ BID PATRICK Last Admin: 02/19/18 10:06 Dose: 5,000 unit Piperacillin Sod/Tazobactam (Sod 2.25 gm/ Dextrose) 50 mls @ 100 mls/hr IVPB Q8H-IV PATRICK PRN Reason: Protocol Last Admin: 02/19/18 10:06 Dose: 100 mls/hr Morphine Sulfate (Morphine Sulfate) 4 mg IVPUSH Q6H PRN PRN Reason: PAIN LEVEL 6-10 Last Admin: 02/19/18 15:46 Dose: 4 mg Ondansetron HCl (Zofran Injection) 4 mg IVPUSH Q6H PRN PRN Reason: NAUSEA AND/OR VOMITING Last Admin: 02/16/18 13:44 Dose: 4 mg - Objective Vital Signs: Vital Signs Temperature 97.8 F 02/19/18 15:26 Pulse Rate 57 L 02/19/18 15:26 Respiratory Rate 20 02/19/18 15:26 Blood Pressure 133/65 02/19/18 15:26 O2 Sat by Pulse Oximetry (%) 95 02/19/18 09:00 Eyes: Yes: WNL, Conjunctiva Clear, EOM Intact HENT: Yes: WNL, Atraumatic, Normocephalic Neck: Yes: WNL, Supple, Trachea Midline Cardiovascular: Yes: WNL, Regular Rate and Rhythm Respiratory: Yes: WNL, Regular, CTA Bilaterally Gastrointestinal: Yes: WNL, Normal Bowel Sounds Genitourinary: Yes: WNL Musculoskeletal: Yes: WNL Extremities: Yes: WNL Edema: Yes Integumentary: Yes: WNL Neurological: Yes: WNL, Alert, Oriented ...Motor Strength: WNL Psychiatric: Yes: WNL Labs: CBC, BMP 02/19/18 06:30 02/19/18 06:30 Assessment/Plan IMP: MENDEZ x one month LE edema H/o nephrolithiasis, CKD echo nl ef REC: Consider PFTs and stress test
--- NOTE | 2018-02-19 18:11 | PN ---
Progress Note (short form) - Note Progress Note: Pt seen and examined. Her knee pain is tolerable. NTD from an ortho pov. Pt instructed to f/u as an out pt
[2018-02-20] MEDS: PIPERACILLIN/TAZOB 2.25 GM 2.25 GM in DEXTROSE 5%-WATER - 50 ML IVPB SCH ×3 (02:00→17:09)
[2018-02-20] MEDS: morphine SULFATE 4 MG/ML VIAL IVPUSH PRN ×4 (03:31→22:07)
[2018-02-20] MEDS ORDERED: PT OWN MED DRAWER 7, Y5N ONE ×2 (09:52→16:55)
[2018-02-20] MEDS: HEPARIN NA (PORCINE) 5,000 UNITS/ML 1ML VIAL SQ SCH ×2 (10:05→22:10)
--- NOTE | 2018-02-20 12:47 | PN ---
Progress Note, Physician - Current Medication List Current Medications: Active Medications Benzocaine/Menthol (Cepacol Lozenge -) 1 each MM PRN PRN PRN Reason: SORE THROAT Heparin Sodium (Porcine) (Heparin -) 5,000 unit SQ BID PATRICK Last Admin: 02/20/18 10:05 Dose: 5,000 unit Piperacillin Sod/Tazobactam (Sod 2.25 gm/ Dextrose) 50 mls @ 100 mls/hr IVPB Q8H-IV PATRICK PRN Reason: Protocol Last Admin: 02/20/18 10:05 Dose: 100 mls/hr Morphine Sulfate (Morphine Sulfate) 4 mg IVPUSH Q6H PRN PRN Reason: PAIN LEVEL 6-10 Last Admin: 02/20/18 10:06 Dose: 4 mg Ondansetron HCl (Zofran Injection) 4 mg IVPUSH Q6H PRN PRN Reason: NAUSEA AND/OR VOMITING Last Admin: 02/16/18 13:44 Dose: 4 mg - Objective Vital Signs: Vital Signs Temperature 97.8 F 02/20/18 06:33 Pulse Rate 60 02/20/18 06:33 Respiratory Rate 20 02/20/18 06:33 Blood Pressure 114/70 02/20/18 06:33 O2 Sat by Pulse Oximetry (%) 95 02/19/18 21:00 Labs: CBC, BMP 02/19/18 06:30 02/19/18 06:30
--- NOTE | 2018-02-20 13:22 | PN ---
Physical Exam: SUBJECTIVE: Patient seen and examined at the bedside. Awaiting EDUCATION INTERN input prior to d/c Awaiting urology follow up OBJECTIVE: Medical coverage for Dr. Cote Vital Signs Period Temp Pulse Resp BP Sys/Minor Pulse Ox Last 24 Hr 97.8 F-98 F 57-61 20-20 114-145/65-85 95 GENERAL: The patient is awake, alert, and fully oriented, in no acute distress. HEAD: Normal with no signs of trauma. EYES: PERRL, extraocular movements intact, sclera anicteric, conjunctiva clear. No ptosis. ENT: Ears normal, nares patent, oropharynx clear without exudates, moist mucous membranes. NECK: Trachea midline, full range of motion, supple. LUNGS: Breath sounds equal, diminished bilaterally ABDOMEN: Soft, nontender, ostomy pink stoma EXTREMITIES: no edema, right heal planter pain NEUROLOGICAL:Normal speech, gait not observed. PSYCH: Normal mood, normal affect. SKIN: Warm, dry, normal turgor, no rashes or lesions note Active Medications Generic Name Dose Route Start Last Admin Trade Name Freq PRN Reason Stop Dose Admin Benzocaine/Menthol 1 each 02/20/18 12:23 Cepacol Lozenge - MM PRN PRN SORE THROAT Heparin Sodium (Porcine) 5,000 unit 02/15/18 10:00 02/20/18 10:05 Heparin - SQ 5,000 unit BID PATRICK Administration Piperacillin Sod/Tazobactam 50 mls @ 100 mls/hr 02/15/18 18:00 02/20/18 10:05 Sod 2.25 gm/ Dextrose IVPB 100 mls/hr Q8H-IV PATRICK Administration Protocol Morphine Sulfate 4 mg 02/18/18 04:43 02/20/18 10:06 Morphine Sulfate IVPUSH 4 mg Q6H PRN Administration PAIN LEVEL 6-10 Ondansetron HCl 4 mg 02/16/18 00:22 02/16/18 13:44 Zofran Injection IVPUSH 4 mg Q6H PRN Administration NAUSEA AND/OR VOMITING ASSESSMENT/PLAN: Patient is a 42 year old female with a significant past medical history of nephrolithiasis s/p urostomy bag and ovarian cysts. She presents to the ED on with c/o of right flank pain and b/l knee pain. The patient states that her flank pain started 1 week prior to admission and is intermittent, sharp, starts in her flank and radiates to her groin. She states that it feels more like her ovarian cysts than her nephrolithiasis. The patient also complains of b/l knee pain, L > R which she describes as a swelling pain which includes difficulty walking. GI: Abdominal pain/RLQ Patient still with right flank pain with some improving Morphine 4mg IV for pain CT scan ABpelvis shows right adnexal cyst Transvaginal u/s noted EDUCATION INTERN consulted GI and Urology consulted by primary MD Bilateral knee pain, acute on chronic Seen by ortho Will need continued follow up outpt Physical therapy ordered : UTI, acute Urine culture (+) for staph coag negative Cont IV zosyn as per ID Monitor labs, vitals Urology consult Renal Baseline creat 1.6-1.8 Will need further workup as per renal as an outpatient Monitor bun/creat IVF per renal Heme: Anemia, chronic Hx of CKD Monitor CBC F.E.N. Fluids: tolerating PO Electrolyes: monitor Nutriiton: renal diet Prophy: PT eval Heparin BID Disposition: Discharge likely tomorrow with antibiotics as per ID. full code. Visit type - Emergency Visit Emergency Visit: Yes ED Registration Date: 02/14/18 Care time: The patient presented to the Emergency Department on the above date and was hospitalized for further evaluation of their emergent condition. - New Patient This patient is new to me today: No - Critical Care Critical Care patient: No - Discharge Referral Referred to [facility] Med P.C.: No
--- NOTE | 2018-02-20 14:50 | PN ---
Progress Note, Physician History of Present Illness: Pt seen and examined at bedside. She is awake and alert. She denies shortness of breath. She feels that the pain is improving. - Current Medication List Current Medications: Active Medications Benzocaine/Menthol (Cepacol Lozenge -) 1 each MM PRN PRN PRN Reason: SORE THROAT Heparin Sodium (Porcine) (Heparin -) 5,000 unit SQ BID PATRICK Last Admin: 02/20/18 10:05 Dose: 5,000 unit Piperacillin Sod/Tazobactam (Sod 2.25 gm/ Dextrose) 50 mls @ 100 mls/hr IVPB Q8H-IV PATRICK PRN Reason: Protocol Last Admin: 02/20/18 10:05 Dose: 100 mls/hr Morphine Sulfate (Morphine Sulfate) 4 mg IVPUSH Q6H PRN PRN Reason: PAIN LEVEL 6-10 Last Admin: 02/20/18 10:06 Dose: 4 mg Ondansetron HCl (Zofran Injection) 4 mg IVPUSH Q6H PRN PRN Reason: NAUSEA AND/OR VOMITING Last Admin: 02/16/18 13:44 Dose: 4 mg - Objective Vital Signs: Vital Signs Temperature 97.8 F 02/20/18 10:00 Pulse Rate 64 02/20/18 10:00 Respiratory Rate 18 02/20/18 10:00 Blood Pressure 124/70 02/20/18 10:00 O2 Sat by Pulse Oximetry (%) 96 02/20/18 09:00 Constitutional: Yes: Calm Eyes: Yes: Conjunctiva Clear HENT: Yes: Atraumatic Neck: Yes: Supple Cardiovascular: Yes: S1, S2 Respiratory: Yes: CTA Bilaterally Gastrointestinal: Yes: Soft Genitourinary: Yes: Other (ileal conduit) Musculoskeletal: Yes: WNL Edema: No Integumentary: Yes: Tattoos Neurological: Yes: Oriented Psychiatric: Yes: Oriented Labs: CBC, BMP 02/19/18 06:30 02/19/18 06:30 Problem List - Problems (1) Flank pain Code(s): R10.9 - UNSPECIFIED ABDOMINAL PAIN (2) Urinary tract infection Code(s): N39.0 - URINARY TRACT INFECTION, SITE NOT SPECIFIED Qualifiers: Urinary tract infection type: site unspecified Hematuria presence: with hematuria Qualified Code(s): N39.0 - Urinary tract infection, site not specified; R31.9 - Hematuria, unspecified; R31.9 - Hematuria, unspecified (3) CKD (chronic kidney disease) Code(s): N18.9 - CHRONIC KIDNEY DISEASE, UNSPECIFIED Assessment/Plan Current Medications Generic Name Dose Route Start Last Admin Trade Name Freq PRN Reason Stop Dose Admin Benzocaine/Menthol 1 each 02/20/18 12:23 Cepacol Lozenge - MM PRN PRN SORE THROAT Heparin Sodium (Porcine) 5,000 unit 02/15/18 10:00 02/20/18 10:05 Heparin - SQ 5,000 unit BID PATRICK Administration Piperacillin Sod/Tazobactam 50 mls @ 100 mls/hr 02/15/18 18:00 02/20/18 10:05 Sod 2.25 gm/ Dextrose IVPB 100 mls/hr Q8H-IV PATRICK Administration Protocol Morphine Sulfate 4 mg 02/18/18 04:43 02/20/18 10:06 Morphine Sulfate IVPUSH 4 mg Q6H PRN Administration PAIN LEVEL 6-10 Ondansetron HCl 4 mg 02/16/18 00:22 02/16/18 13:44 Zofran Injection IVPUSH 4 mg Q6H PRN Administration NAUSEA AND/OR VOMITING Impression 1. CKD 2. hydronephrosis 3. uti 4. ovarian cysts 5. anemia 6. adnexal cyst 7. 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
[2018-02-20 17:03] LABS: BASO % 0.3 % (0-2.0); EOS % 7.8 % (0-4.5); HEMATOCRIT 36.9 % (32.4-45.2); HEMOGLOBIN 12.9 GM/dL (10.7-15.3); LYMPH % 16.5 % (8-40); MCH 30.9 pg (25.7-33.7); MEAN CELL VOLUME 88.2 fl (80-96); MEAN PLT VOLUME 9.5 fl (7.5-11.1); MONO % 5.5 % (3.8-10.2); NEUT % 69.9 % (42.8-82.8); PLATELET COUNT 194 K/MM3 (134-434); RBC 4.19 M/mm3 (3.60-5.2); RDW 15.3 % (11.6-15.6); WHITE BLOOD COUNT 6.1 K/mm3 (4.0-10.0)
[2018-02-20 17:07] LABS: ALBUMIN 2.9 g/dl (3.4-5.0); ALK PHOS 64 U/L (45-117); ANION GAP 6 (8-16); BILIRUBIN,TOTAL 0.2 mg/dL (0.2-1.0); BLOOD UREA NITROGEN 15 mg/dL (7-18); CALCIUM 8.7 mg/dL (8.5-10.1); CHLORIDE 110 mmol/L (98-107); CO2 26 mmol/L (21-32); CREATININE 1.8 mg/dL (0.55-1.02); GLUCOSE,RANDOM 114 mg/dL (74-106); POTASSIUM 3.9 mmol/L (3.5-5.1); SGOT/AST 43 U/L (15-37); SGPT/ALT 59 U/L (12-78); SODIUM 142 mmol/L (136-145); TOT PROT 6.3 g/dl (6.4-8.2)
--- NOTE | 2018-02-20 19:27 | PN ---
Progress Note, Physician History of Present Illness: The patient is a 42-year-old black female, with a significant past medical of urostomy bag (2/2 repeated nephrolithiasis) and fibroids (s/p myomectomy), obesity, sedentary lifestyle, smoker, who presents to the ED with one week of right-sided flank pain and bilateral knee pain. The patient describes her flank pain as sharp, intermittent, radiating down to her right groin and right leg. This pain is similar to the pain she has experienced in the past with her right ovarian cyst. The patient's knee pain is constant and she has not been able to ambulate due to the pain. She denies any trauma to the area. She reports associated nausea, but no vomiting. She denies any history of gout. The patient denies any fever, chills, vomiting, diarrhea, or abdominal pain. Denies any shortness of breath or chest pain. Allergies: NKA PCP: Dr. Rayne Castillo - Current Medication List Current Medications: Active Medications Benzocaine/Menthol (Cepacol Lozenge -) 1 each MM PRN PRN PRN Reason: SORE THROAT Heparin Sodium (Porcine) (Heparin -) 5,000 unit SQ BID PATRICK Last Admin: 02/20/18 10:05 Dose: 5,000 unit Piperacillin Sod/Tazobactam (Sod 2.25 gm/ Dextrose) 50 mls @ 100 mls/hr IVPB Q8H-IV PATRICK PRN Reason: Protocol Last Admin: 02/20/18 17:09 Dose: 100 mls/hr Morphine Sulfate (Morphine Sulfate) 4 mg IVPUSH Q6H PRN PRN Reason: PAIN LEVEL 6-10 Last Admin: 02/20/18 16:00 Dose: 4 mg Ondansetron HCl (Zofran Injection) 4 mg IVPUSH Q6H PRN PRN Reason: NAUSEA AND/OR VOMITING Last Admin: 02/16/18 13:44 Dose: 4 mg - Objective Vital Signs: Vital Signs Temperature 98.1 F 02/20/18 18:54 Pulse Rate 65 02/20/18 18:54 Respiratory Rate 18 02/20/18 18:54 Blood Pressure 134/80 02/20/18 18:54 O2 Sat by Pulse Oximetry (%) 96 02/20/18 09:00 Labs: CBC, BMP 02/20/18 16:00 02/20/18 16:00 Problem List - Problems (1) Flank pain Code(s): R10.9 - UNSPECIFIED ABDOMINAL PAIN (2) Urinary tract infection Code(s): N39.0 - URINARY TRACT INFECTION, SITE NOT SPECIFIED Qualifiers: Urinary tract infection type: site unspecified Hematuria presence: with hematuria Qualified Code(s): N39.0 - Urinary tract infection, site not specified; R31.9 - Hematuria, unspecified; R31.9 - Hematuria, unspecified (3) Anemia Code(s): D64.9 - ANEMIA, UNSPECIFIED (4) CKD (chronic kidney disease) Code(s): N18.9 - CHRONIC KIDNEY DISEASE, UNSPECIFIED (5) History of nephrolithiasis Code(s): Z87.442 - PERSONAL HISTORY OF URINARY CALCULI (6) Left knee pain Code(s): M25.562 - PAIN IN LEFT KNEE Qualifiers: Chronicity: unspecified Qualified Code(s): M25.562 - Pain in left knee (7) Musculoskeletal pain Code(s): M79.1 - MYALGIA (8) Obstructive uropathy Code(s): N13.9 - OBSTRUCTIVE AND REFLUX UROPATHY, UNSPECIFIED (10) Smoking Code(s): F17.200 - NICOTINE DEPENDENCE, UNSPECIFIED, UNCOMPLICATED (11) Overweight Code(s): E66.3 - OVERWEIGHT (12) Sedentary lifestyle Code(s): Z91.89 - OT PERSONAL RISK FACTORS, NOT ELSEWHERE CLASSIFIED (13) Sinus bradycardia Code(s): R00.1 - BRADYCARDIA, UNSPECIFIED
[2018-02-21] MEDS: morphine SULFATE 4 MG/ML VIAL IVPUSH PRN (03:50)
[2018-02-21] MEDS: BENZOCAINE/MENTH/CETYLPYRD CL 1 EACH LOZENGE MM PRN ×2 (03:52→09:37)
[2018-02-21 08:27] LABS: ANION GAP 5 (8-16); BLOOD UREA NITROGEN 18 mg/dL (7-18); CALCIUM 8.8 mg/dL (8.5-10.1); CHLORIDE 110 mmol/L (98-107); CO2 26 mmol/L (21-32); GLUCOSE,RANDOM 78 mg/dL (74-106); POTASSIUM 4.4 mmol/L (3.5-5.1); SODIUM 141 mmol/L (136-145)
[2018-02-21 08:28] LABS: CREATININE 1.9 mg/dL (0.55-1.02)
[2018-02-21 09:02] LABS: BASO % 0.5 % (0-2.0); EOS % 8.8 % (0-4.5); HEMATOCRIT 38.9 % (32.4-45.2); HEMOGLOBIN 12.9 GM/dL (10.7-15.3); LYMPH % 19.6 % (8-40); MCHC 33.2 g/dl (32.0-36.0); MEAN CELL VOLUME 90.4 fl (80-96); MEAN PLT VOLUME 9.3 fl (7.5-11.1); NEUT % 65.1 % (42.8-82.8); PLATELET COUNT 197 K/MM3 (134-434); RDW 15.5 % (11.6-15.6); WHITE BLOOD COUNT 6.7 K/mm3 (4.0-10.0)
[2018-02-21] MEDS: HEPARIN NA (PORCINE) 5,000 UNITS/ML 1ML VIAL SQ SCH (09:37)
[2018-02-21 10:03] LABS: ALBUMIN 2.9 g/dl (3.4-5.0); ALK PHOS 64 U/L (45-117); BILIRUBIN,TOTAL 0.1 mg/dL (0.2-1.0); SGOT/AST 36 U/L (15-37); SGPT/ALT 57 U/L (12-78); TOT PROT 6.2 g/dl (6.4-8.2)
[2018-02-21 11:43] VITALS: BP 147/92; PULSE 67; TEMP 98
[2018-02-21] MEDS ORDERED: oxyCODONE HCL 5 MG TABLET PO ONE (11:45)
--- NOTE | 2018-02-21 12:01 | PN ---
Progress Note, Physician History of Present Illness: The patient is a 42-year-old black female, with a significant past medical of urostomy bag (2/2 repeated nephrolithiasis) and fibroids (s/p myomectomy), obesity, sedentary lifestyle, smoker, who presents to the ED with one week of right-sided flank pain and bilateral knee pain. The patient describes her flank pain as sharp, intermittent, radiating down to her right groin and right leg. This pain is similar to the pain she has experienced in the past with her right ovarian cyst. The patient's knee pain is constant and she has not been able to ambulate due to the pain. She denies any trauma to the area. She reports associated nausea, but no vomiting. She denies any history of gout. The patient denies any fever, chills, vomiting, diarrhea, or abdominal pain. Denies any shortness of breath or chest pain. Allergies: NKA PCP: Dr. Rayne Castillo - Current Medication List Current Medications: Active Medications Benzocaine/Menthol (Cepacol Lozenge -) 1 each MM PRN PRN PRN Reason: SORE THROAT Last Admin: 02/21/18 09:37 Dose: 1 each Heparin Sodium (Porcine) (Heparin -) 5,000 unit SQ BID PATRICK Last Admin: 02/21/18 09:37 Dose: 5,000 unit Ondansetron HCl (Zofran Injection) 4 mg IVPUSH Q6H PRN PRN Reason: NAUSEA AND/OR VOMITING Last Admin: 02/16/18 13:44 Dose: 4 mg - Objective Vital Signs: Vital Signs Temperature 98.0 F 02/21/18 11:00 Pulse Rate 67 02/21/18 11:00 Respiratory Rate 20 02/21/18 11:00 Blood Pressure 147/92 02/21/18 11:00 O2 Sat by Pulse Oximetry (%) 96 02/21/18 09:00 Eyes: Yes: WNL, Conjunctiva Clear, EOM Intact HENT: Yes: WNL, Atraumatic, Normocephalic Neck: Yes: WNL, Supple, Trachea Midline Cardiovascular: Yes: WNL, Regular Rate and Rhythm Respiratory: Yes: WNL, Regular, CTA Bilaterally Gastrointestinal: Yes: WNL, Normal Bowel Sounds Genitourinary: Yes: WNL Musculoskeletal: Yes: WNL Extremities: Yes: WNL Edema: No Integumentary: Yes: WNL Neurological: Yes: WNL, Alert, Oriented ...Motor Strength: WNL Psychiatric: Yes: WNL Labs: CBC, BMP 02/21/18 06:00 02/21/18 07:32 Assessment/Plan IMP: MENDEZ x one month LE edema H/o nephrolithiasis, CKD echo nl ef REC: Consider PFTs and stress test
--- NOTE | 2018-02-21 12:11 | CONS ---
DATE OF CONSULTATION: 02/21/2018 REASON FOR CONSULTATION: Ovarian cyst. HISTORY OF PRESENT ILLNESS: This patient is a 42-year-old female with past medical history of nephrolithiasis status post ileal conduit and urostomy bag, history of fibroid uterus and ovarian cyst, who was admitted to the hospital with a complaint of flank pain. She was admitted for evaluation and had a transvaginal sonogram, which showed a fibroid uterus and a right ovarian cyst 6.4 x 5 cm cyst, which appears to be a simple cyst. Patients periods are normal. She is sexually active, no contraception, and she has not had any pelvic exam recently. PHYSICAL EXAMINATION: General: Patient is comfortable. Abdomen: Soft, nontender. Urostomy bag was noted. No distension and no ascites. Pelvic: External genitalia is normal. Vagina was normal. Normal discharge. Cervix was clean. No gross lesion. Uterus was enlarged with a fibroid uterus. Adnexa, no masses were palpable. IMPRESSION: Right ovarian cyst, most likely hemorrhagic, fibroid uterus. Patient is asymptomatic. Periods are normal. Advised to follow up in the clinic at [facility] in 1 week. Importance of followup and repeat sonogram with doing Pap smear and possible CA 125 was explained to the patient. Importance of followup was discussed in detail with the patient, and small risk of ovarian cancer was explained to the patient, and she was advised to follow up in the clinic in 1 week. Patient will call [facility] for appointment. MARTITA HOLLEY M.D. /[id number]
--- NOTE | 2018-02-21 12:58 | PN ---
Progress Note, Physician History of Present Illness: Pt seen and examined at bedside. She is awake and alert. She feels that the pain is a little better. - Current Medication List Current Medications: Active Medications Benzocaine/Menthol (Cepacol Lozenge -) 1 each MM PRN PRN PRN Reason: SORE THROAT Last Admin: 02/21/18 09:37 Dose: 1 each Heparin Sodium (Porcine) (Heparin -) 5,000 unit SQ BID PATRICK Last Admin: 02/21/18 09:37 Dose: 5,000 unit Ondansetron HCl (Zofran Injection) 4 mg IVPUSH Q6H PRN PRN Reason: NAUSEA AND/OR VOMITING Last Admin: 02/16/18 13:44 Dose: 4 mg - Objective Vital Signs: Vital Signs Temperature 98.0 F 02/21/18 11:00 Pulse Rate 67 02/21/18 11:00 Respiratory Rate 20 02/21/18 11:00 Blood Pressure 147/92 02/21/18 11:00 O2 Sat by Pulse Oximetry (%) 96 02/21/18 09:00 Constitutional: Yes: Calm Eyes: Yes: Conjunctiva Clear HENT: Yes: Atraumatic Cardiovascular: Yes: S1, S2 Respiratory: Yes: CTA Bilaterally Gastrointestinal: Yes: Normal Bowel Sounds Genitourinary: Yes: Other (ileal conduit) Musculoskeletal: Yes: WNL Edema: No Integumentary: Yes: Tattoos Neurological: Yes: Oriented Psychiatric: Yes: Oriented Labs: CBC, BMP 02/21/18 06:00 02/21/18 07:32 Problem List - Problems (1) Flank pain Code(s): R10.9 - UNSPECIFIED ABDOMINAL PAIN (2) Urinary tract infection Code(s): N39.0 - URINARY TRACT INFECTION, SITE NOT SPECIFIED Qualifiers: Urinary tract infection type: site unspecified Hematuria presence: with hematuria Qualified Code(s): N39.0 - Urinary tract infection, site not specified; R31.9 - Hematuria, unspecified; R31.9 - Hematuria, unspecified (3) CKD (chronic kidney disease) Code(s): N18.9 - CHRONIC KIDNEY DISEASE, UNSPECIFIED Assessment/Plan Current Medications Generic Name Dose Route Start Last Admin Trade Name Freq PRN Reason Stop Dose Admin Benzocaine/Menthol 1 each 02/20/18 12:23 02/21/18 09:37 Cepacol Lozenge - MM 1 each PRN PRN Administration SORE THROAT Heparin Sodium (Porcine) 5,000 unit 02/15/18 10:00 02/21/18 09:37 Heparin - SQ 5,000 unit BID PATRICK Administration Ondansetron HCl 4 mg 02/16/18 00:22 02/16/18 13:44 Zofran Injection IVPUSH 4 mg Q6H PRN Administration NAUSEA AND/OR VOMITING Impression 1. CKD 2. hydronephrosis 3. uti 4. ovarian cysts 5. anemia 6. adnexal cyst 7. nephrolithiasis Plan - renal function at baseline, will workup as outpt - will also need genetics physician follow up - urology pending - will follow PRN Dr Montgomery
--- NOTE | 2018-02-21 13:00 | PN ---
Progress Note, Physician - Current Medication List Current Medications: Active Medications Benzocaine/Menthol (Cepacol Lozenge -) 1 each MM PRN PRN PRN Reason: SORE THROAT Last Admin: 02/21/18 09:37 Dose: 1 each Heparin Sodium (Porcine) (Heparin -) 5,000 unit SQ BID PATRICK Last Admin: 02/21/18 09:37 Dose: 5,000 unit Ondansetron HCl (Zofran Injection) 4 mg IVPUSH Q6H PRN PRN Reason: NAUSEA AND/OR VOMITING Last Admin: 02/16/18 13:44 Dose: 4 mg - Objective Vital Signs: Vital Signs Temperature 98.0 F 02/21/18 11:00 Pulse Rate 67 02/21/18 11:00 Respiratory Rate 20 02/21/18 11:00 Blood Pressure 147/92 02/21/18 11:00 O2 Sat by Pulse Oximetry (%) 96 02/21/18 09:00 Labs: CBC, BMP 02/21/18 06:00 02/21/18 07:32
== END 2018-02-21 15:10 | disposition home or self-care (01) | DRG 463 ==
LOC: JER 19:20 → JERBED 23:08 → UNDOADMIN 02-15 00:39 → JERBED 02-15 00:39 → J8W 02-15 16:07
PROVIDERS: ADMIT Internal Medicine; ATTEND Internal Medicine
DX: N39.0 Urinary tract infection, site not specified (principal); N13.30 Unspecified hydronephrosis; Z93.6 Other artificial openings of urinary tract status; D64.9 Anemia, unspecified; N18.9 Chronic kidney disease, unspecified; E66.9 Obesity, unspecified; R00.1 Bradycardia, unspecified; Z68.37 Body mass index [BMI] 37.0-37.9, adult; M25.562 Pain in left knee; M25.561 Pain in right knee; N83.201 Unspecified ovarian cyst, right side; D25.9 Leiomyoma of uterus, unspecified; F17.210 Nicotine dependence, cigarettes, uncomplicated; F32.9 Major depressive disorder, single episode, unspecified; F41.9 Anxiety disorder, unspecified; Z80.3 Family history of malignant neoplasm of breast; F12.90 Cannabis use, unspecified, uncomplicated
CPT/HCPCS: 36415; 71046-TC-FY; 72192-TC; 74150-TC; 76700-TC; 76775-TC; 76830-TC; 76856-TC; 80048; 80053; 80061; 81003; 81015; 83721; 84443; 84703; 85025; 87086; 87186; 93005; 93010; 93306-TC; 93880-TC; 93970-TC; 99285-25; J0131; J1644

== ENCOUNTER 2018-03-07 16:58 | Inpatient (IN) | payer OTHER ==
--- NOTE | 2018-03-07 17:11 | PDOC ---
Rapid Medical Evaluation Time Seen by Provider: 03/07/18 17:10 Medical Evaluation: Allergies Allergy/AdvReac Type Severity Reaction Status Date / Time No Known Allergies Allergy Verified 02/14/18 19:42 03/07/18 17:10 I have performed a brief in-person evaluation of this patient. The patient presents with a chief complaint of: sent by station engineer MD Montgomery for kidney pain and b/l legs, hx of stones and renal insufficiency Pertinent physical exam findings: R cva tenderness I have ordered the following: urine The patient will proceed to the ED for further evaluation. Discharge Disposition - Diagnosis Flank pain - Referrals - Patient Instructions - Post Discharge Activity
[2018-03-07 18:56] LABS: BASO % 0.7 % (0-2.0); EOS % 5.8 % (0-4.5); HEMATOCRIT 38.2 % (32.4-45.2); HEMOGLOBIN 13.3 GM/dL (10.7-15.3); MCH 30.7 pg (25.7-33.7); MCHC 34.8 g/dl (32.0-36.0); MEAN CELL VOLUME 88.3 fl (80-96); MEAN PLT VOLUME 9.1 fl (7.5-11.1); MONO % 5.2 % (3.8-10.2); NEUT % 66.3 % (42.8-82.8); PLATELET COUNT 223 K/MM3 (134-434); RBC 4.33 M/mm3 (3.60-5.2); RDW 15.1 % (11.6-15.6); WHITE BLOOD COUNT 7.8 K/mm3 (4.0-10.0)
[2018-03-07 19:22] LABS: HCG,QUALITATIVE URINE NEGATIVE
[2018-03-07 19:26] LABS: URINE APPEARANCE SLCLOUDY; URINE BILIRUBIN NEGATIVE (<2.0 mg/dL); URINE BLOOD 2+ (NEGATIVE); URINE COLOR LTYELLOW; URINE GLUCOSE (UA) NEGATIVE (NEGATIVE); URINE KETONE NEGATIVE (NEGATIVE); URINE NITRITE POSITIVE (NEGATIVE); URINE UROBILINOGEN NEGATIVE mg/dL (0.2-1.0)
[2018-03-07 19:30] LABS: ALBUMIN 3.2 g/dl (3.4-5.0); ANION GAP 5 (8-16); BLOOD UREA NITROGEN 24 mg/dL (7-18); CALCIUM 8.6 mg/dL (8.5-10.1); CHLORIDE 113 mmol/L (98-107); CO2 25 mmol/L (21-32); GLUCOSE,RANDOM 99 mg/dL (74-106); POTASSIUM 4.1 mmol/L (3.5-5.1); SGOT/AST 15 U/L (15-37); SGPT/ALT 19 U/L (12-78); SODIUM 143 mmol/L (136-145)
[2018-03-07 19:33] LABS: ALK PHOS 63 U/L (45-117); BILIRUBIN,TOTAL 0.1 mg/dL (0.2-1.0); TOT PROT 6.8 g/dl (6.4-8.2)
[2018-03-07 19:36] LABS: URINE LEUK ESTERASE 3+ (NEGATIVE); URINE PROTEIN 2+ (NEGATIVE)
[2018-03-07 19:37] LABS: EPI CELLS RARE /HPF (FEW); URINE BACTERIA RARE /hpf (NONE SEEN); URINE MUCUS RARE
--- NOTE | 2018-03-07 20:27 | PDOC ---
History of Present Illness - General History Source: Patient Exam Limitations: No Limitations - History of Present Illness Initial Comments: 03/07/18 20:54 The patient is a 42-year-old female, with a significant past medical history of renal Insufficiency (s/p urinary diversion, ileal conduit 8 yrs ago at [facility]), anemia (chronic, iron deficiency anemia ), anxiety, and depression, who was sent to the ED from her [employer], Dr. Montgomery's office, with increasing right kidney pain. The patient was admitted on 02/14/18 for UTI and was discharged on 02/21/18 with antibiotics, but the patient continues to have urinary symptoms. Denies fever, chills, nausea, vomiting, diarrhea, or abdominal pain. Allergies: NKA Social History: Reports tobacco use. Denies any alcohol or drug use. PCP: Dr. Rayne Castillo Stick Welder: Dr. Montgomery <Jenny Malin - Last Filed: 03/07/18 20:54> - General History Source: Patient <Rolly Hermosillo - Last Filed: 03/08/18 19:42> - General Chief Complaint: Pain, Acute Stated Complaint: right kideny pain Time Seen by Provider: 03/07/18 17:10 Past History <Jenny Malin - Last Filed: 03/07/18 20:54> - Past Medical History Anemia: Yes COPD: No Disorders: Yes (Ileal Conduit, H/O KIDNEY STONES) Kidney Stones: Yes (kidney failure) - Reproductive History (#): 0 Para: 0 - Immunization History Immunization Up to Date: Yes - Suicide/Smoking/Psychosocial Hx Smoking Status: No Smoking History: Never smoked Have you smoked in the past 12 months: Yes Number of Cigarettes Smoked Daily: 3 Cigars Per Day: 0 Information on smoking cessation initiated: No 'Breaking Loose' booklet given: 02/15/18 Hx Alcohol Use: No Drug/Substance Use Hx: No Substance Use Type: None Hx Substance Use Treatment: No <Rolly Hermosillo - Last Filed: 03/08/18 19:42> - Past Medical History Allergies/Adverse Reactions: Allergies Allergy/AdvReac Type Severity Reaction Status Date / Time No Known Allergies Allergy Verified 03/07/18 17:14 Home Medications: Ambulatory Orders NK [No Known Home Medication] 03/07/18 Review of Systems - Review of Systems Able to Perform ROS?: Yes Comments:: 03/07/18 20:54 CONSTITUTIONAL: Absent: fever, chills, diaphoresis, generalized weakness, malaise, loss of appetite HEENT: Absent: rhinorrhea, nasal congestion, throat pain, throat swelling, difficulty swallowing, mouth swelling, ear pain, eye pain, visual Changes CARDIOVASCULAR: Absent: chest pain, syncope, palpitations, irregular heart rate, lightheadedness , peripheral edema RESPIRATORY: Absent: cough, shortness of breath, dyspnea with exertion, orthopnea, wheezing, stridor, hemoptysis GASTROINTESTINAL: Absent: abdominal pain, abdominal distension, nausea, vomiting, diarrhea, constipation, melena, hematochezia GENITOURINARY: Absent: dysuria, frequency, urgency, hesitancy, hematuria, flank pain, genital pain MUSCULOSKELETAL: Present: Right CVA tenderness. Absent: arthralgia, joint swelling SKIN: Absent: rash, itching, pallor HEMATOLOGIC/IMMUNOLOGIC: Absent: easy bleeding, easy bruising, lymphadenopathy, frequent infections ENDOCRINE: Absent: unexplained weight gain, unexplained weight loss, heat intolerance, cold intolerance NEUROLOGIC: Absent: headache, focal weakness or paresthesias, dizziness, unsteady gait, seizure, mental status changes, bladder or bowel incontinence PSYCHIATRIC: Absent: anxiety, depression, suicidal or homicidal ideation, hallucinations. <Jenny Malin - Last Filed: 03/07/18 20:54> *Physical Exam - Vital Signs Last Vital Signs Temp Pulse Resp BP Pulse Ox 97.9 F 82 16 138/94 100 03/07/18 17:11 03/07/18 17:11 03/07/18 17:11 03/07/18 17:11 03/07/18 17:11 - Physical Exam Comments: 03/07/18 21:00 GENERAL: Well developed, well nourished. Awake and alert. No acute distress. HEENT: Normocephalic, atraumatic. PERRLA, EOMI. No conjunctival pallor. Sclera are non- icteric. Moist mucous membranes. Oropharynx is clear. NECK: Supple. Full ROM. No JVD. Carotid pulses 2+ and symmetric, without bruits. No thyromegaly. No lymphadenopathy. CARDIOVASCULAR: Regular rate and rhythm. No murmurs, rubs, or gallops. Distal pulses are 2+ and symmetric. PULMONARY: No evidence of respiratory distress. Lungs clear to auscultation bilaterally. No wheezing, rales or rhonchi. ABDOMINAL: Soft. Non-tender. Non-distended. No rebound or guarding. No organomegaly. Normoactive bowel sounds. MUSCULOSKELETAL (+) Right-sided CVA tenderness. Normal range of motion at all joints. No bony deformities or tenderness. EXTREMITIES: No cyanosis. No clubbing. No edema. No calf tenderness. SKIN: Warm and dry. Normal capillary refill. No rashes. No jaundice. NEUROLOGICAL: Alert, awake, appropriate. PSYCHIATRIC: Cooperative. Good eye contact. Appropriate mood and affect. <Jenny Malin - Last Filed: 03/07/18 20:54> - Vital Signs Last Vital Signs Temp Pulse Resp BP Pulse Ox 97.9 F 82 16 138/94 100 03/07/18 17:11 03/07/18 17:11 03/07/18 17:11 03/07/18 17:11 03/07/18 17:11 <Rolly Hermosillo - Last Filed: 03/08/18 19:42> ED Treatment Course - LABORATORY CBC & Chemistry Diagram: 03/07/18 18:42 03/07/18 18:42 - ADDITIONAL ORDERS Additional order review: Laboratory Results 03/07/18 03/07/18 19:03 18:42 Sodium 143 Potassium 4.1 Chloride 113 H Carbon Dioxide 25 Anion Gap 5 L BUN 24 H Creatinine 2.0 H Creat Clearance w eGFR 27.19 Random Glucose 99 Calcium 8.6 Total Bilirubin 0.1 L AST 15 ALT 19 Alkaline Phosphatase 63 Total Protein 6.8 Albumin 3.2 L Urine Color Ltyellow Urine Appearance Slcloudy Urine pH 7.0 Ur Specific [place] 1.010 Urine Protein 2+ H Urine Glucose (UA) Negative Urine Ketones Negative Urine Blood 2+ H Urine Nitrite Positive Urine Bilirubin Negative Urine Urobilinogen Negative Ur Leukocyte Esterase 3+ H Urine WBC (Auto) 88 Urine RBC (Auto) 31 Ur Epithelial Cells Rare Urine Bacteria Rare Urine Mucus Rare Urine HCG, Qual Negative 03/07/18 18:42 RBC 4.33 MCV 88.3 MCHC 34.8 RDW 15.1 MPV 9.1 Neutrophils % 66.3 Lymphocytes % 22.0 Monocytes % 5.2 Eosinophils % 5.8 H Basophils % 0.7 <Jenny Malin - Last Filed: 03/07/18 20:54> - LABORATORY CBC & Chemistry Diagram: 03/08/18 07:00 03/08/18 07:00 - ADDITIONAL ORDERS Additional order review: Laboratory Results 03/07/18 03/07/18 19:03 18:42 Sodium 143 Potassium 4.1 Chloride 113 H Carbon Dioxide 25 Anion Gap 5 L BUN 24 H Creatinine 2.0 H Creat Clearance w eGFR 27.19 Random Glucose 99 Calcium 8.6 Total Bilirubin 0.1 L AST 15 ALT 19 Alkaline Phosphatase 63 Total Protein 6.8 Albumin 3.2 L Urine Color Ltyellow Urine Appearance Slcloudy Urine pH 7.0 Ur Specific [place] 1.010 Urine Protein 2+ H Urine Glucose (UA) Negative Urine Ketones Negative Urine Blood 2+ H Urine Nitrite Positive Urine Bilirubin Negative Urine Urobilinogen Negative Ur Leukocyte Esterase 3+ H Urine WBC (Auto) 88 Urine RBC (Auto) 31 Ur Epithelial Cells Rare Urine Bacteria Rare Urine Mucus Rare Urine HCG, Qual Negative 03/07/18 18:42 RBC 4.33 MCV 88.3 MCHC 34.8 RDW 15.1 MPV 9.1 Neutrophils % 66.3 Lymphocytes % 22.0 Monocytes % 5.2 Eosinophils % 5.8 H Basophils % 0.7 <Rolly Hermosillo - Last Filed: 03/08/18 19:42> Medical Decision Making - Medical Decision Making 03/07/18 20:42 Dr. Cote was paged and notified via phone service. <Jenny Malin - Last Filed: 03/07/18 20:54> - Medical Decision Making 03/08/18 19:42 Dr. Hermosillo: The scribe's documentation has been prepared under my direction and personally reviewed by me in its entirery. I confirm that the note above accurately reflects all work, treatment, procedures, and medical decision making performed by me. <Rolly Hermosillo - Last Filed: 03/08/18 19:42> *DC/Admit/Observation/Transfer - Attestations Scribe Attestion: 03/07/18 21:03 Documentation prepared by Jenny Malin, acting as chief medical technologist for Rolly Hermosillo MD. <Jenny Malin - Last Filed: 03/07/18 20:54> - Discharge Dispostion Admit: Yes <Rolly Hermosillo - Last Filed: 03/08/18 19:42> Diagnosis at time of Disposition: Flank pain, Urinary tract infection, Renal insufficiency - Discharge Dispostion Condition at time of disposition: Stable
[2018-03-07] MEDS ORDERED: morphine CARPU-JECT 2 MG/1 ML DISP.SYRIN IVPUSH ONE (21:35)
[2018-03-07] MEDS ORDERED: ONDANSETRON 4 MG/2 ML VIAL IVPUSH STA (21:36)
[2018-03-07] MEDS ORDERED: CEFTRIAXONE 1 GM/50 ML BAG ONE ×2 (22:04)
[2018-03-07] MEDS ORDERED: morphine SULFATE 4 MG/ML VIAL ONE (22:04)
[2018-03-07] MEDS ORDERED: ONDANSETRON 4 MG/2 ML VIAL ONE (22:04)
[2018-03-08 01:18] VITALS: BMI 37.4
[2018-03-08] MEDS ORDERED: ONDANSETRON 4 MG/2 ML VIAL IVPUSH PRN (02:16)
[2018-03-08] MEDS ORDERED: morphine CARPU-JECT 4 MG/1 ML DISP.SYRIN IVPUSH PRN (02:18)
[2018-03-08] MEDS ORDERED: morphine SULFATE 4 MG/ML VIAL IVPUSH PRN (02:32)
[2018-03-08] MEDS: DEXTROSE 5%-0.45% SALINE 1,000 ML IV SCH ×2 (02:33→17:24)
[2018-03-08 07:37] LABS: BASO % 0.4 % (0-2.0); EOS % 5.8 % (0-4.5); HEMATOCRIT 36.6 % (32.4-45.2); HEMOGLOBIN 12.4 GM/dL (10.7-15.3); LYMPH % 22.4 % (8-40); MCH 30.1 pg (25.7-33.7); MCHC 33.9 g/dl (32.0-36.0); MEAN CELL VOLUME 88.7 fl (80-96); MEAN PLT VOLUME 9.3 fl (7.5-11.1); MONO % 5.9 % (3.8-10.2); NEUT % 65.5 % (42.8-82.8); PLATELET COUNT 197 K/MM3 (134-434); RBC 4.12 M/mm3 (3.60-5.2); WHITE BLOOD COUNT 7.6 K/mm3 (4.0-10.0)
[2018-03-08 08:08] LABS: ALBUMIN 2.9 g/dl (3.4-5.0); ANION GAP 5 (8-16); BILIRUBIN,TOTAL 0.1 mg/dL (0.2-1.0); BLOOD UREA NITROGEN 25 mg/dL (7-18); CHLORIDE 113 mmol/L (98-107); CO2 24 mmol/L (21-32); CREATININE 1.9 mg/dL (0.55-1.02); GLUCOSE,RANDOM 84 mg/dL (74-106); POTASSIUM 3.9 mmol/L (3.5-5.1); SGOT/AST 16 U/L (15-37); SGPT/ALT 16 U/L (12-78); SODIUM 142 mmol/L (136-145)
[2018-03-08 08:09] LABS: ALK PHOS 58 U/L (45-117); TOT PROT 6.1 g/dl (6.4-8.2)
[2018-03-08] MEDS ORDERED: cefTRIAXone SODIUM 1 GM VIAL ONE (10:21)
[2018-03-08] MEDS ORDERED: DEXTROSE 5%-WATER - 50 ML IVPB ONE (10:22)
[2018-03-08] MEDS: ENOXAPARIN NA (PORCINE) 40 MG/0.4 ML DISP.SYRIN SQ SCH (10:32)
[2018-03-08] MEDS: CEFTRIAXONE 1 GM in DEXTROSE 5%-WATER - 50 ML IVPB SCH (10:32)
--- NOTE | 2018-03-08 13:31 | CONSULT ---
Consult Consult Specialty:: Nephrology Reason for Consultation:: CKD - History of Present Illness Chief Complaint: right side groin pain History of Present Illness: Pt is a 42 year old female with pmhx of CKD, nephrolithiasis and ileal conduit who presented to my office yesterday for renal workup. She has a baseline creatinine of about 2. She had right groin pain that was severe and wanted to go to the ER for evaluation. She had similar pain on her last admission. She denies fevers or chills. She has not seen urology yet. - History Source History Provided By: Patient - Past Medical History Renal/: Yes: Renal Inusuff (s/p urinary diversion , ileal conduit 8 yrs ago at [facility] . 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 suspect thyroditis ) - Alcohol/Substance Use Hx Alcohol Use: No - Smoking History Smoking history: Current every day smoker Have you smoked in the past 12 months: Yes Aproximately how many cigarettes per day: 3 - Social History Usual Living Arrangement: Alone ADL: Independent History of Recent Travel: No Home Medications - Allergies Allergies/Adverse Reactions: Allergies Allergy/AdvReac Type Severity Reaction Status Date / Time No Known Allergies Allergy Verified 03/07/18 17:14 - Home Medications Home Medications: Ambulatory Orders NK [No Known Home Medication] 03/07/18 Family Disease History - Family Disease History Family Disease History: CA: Mother (MGM [place] Breast) Review of Systems - Review of Systems Constitutional: reports: Malaise. denies: Chills, Fever Cardiovascular: reports: No Symptoms Respiratory: reports: No Symptoms Gastrointestinal: reports: No Symptoms Genitourinary: reports: Flank Pain Musculoskeletal: reports: No Symptoms Integumentary: reports: No Symptoms Endocrine: reports: No Symptoms Physical Exam Vital Signs: Vital Signs Temperature 97.8 F 03/08/18 08:00 Pulse Rate 63 03/08/18 08:00 Respiratory Rate 20 03/08/18 08:00 Blood Pressure 112/61 03/08/18 08:00 O2 Sat by Pulse Oximetry (%) 98 03/08/18 08:00 Constitutional: Yes: Calm Eyes: Yes: Conjunctiva Clear HENT: Yes: Atraumatic Neck: Yes: Supple Cardiovascular: Yes: S1, S2 Respiratory: Yes: CTA Bilaterally Gastrointestinal: Yes: Soft Renal/: Yes: Other (ileal conduit) Edema: No Neurological: Yes: Oriented Psychiatric: Yes: Oriented Labs: CBC, BMP 03/08/18 07:00 03/08/18 07:00 Laboratory Tests 03/07/18 03/07/18 03/08/18 18:42 19:03 07:00 WBC 7.6 Hgb 12.4 Sodium 143 Creatinine 2.0 H Urine Protein 2+ H Urine Blood 2+ H 03/08/18 07:00 WBC Hgb Sodium 142 Creatinine 1.9 H Urine Protein Urine Blood Imaging - Results Cat Scan: Report Reviewed Problem List - Problems (1) Flank pain Code(s): R10.9 - UNSPECIFIED ABDOMINAL PAIN (2) Renal insufficiency Code(s): N28.9 - DISORDER OF KIDNEY AND URETER, UNSPECIFIED Assessment/Plan Current Medications Generic Name Dose Route Start Last Admin Trade Name Freq PRN Reason Stop Dose Admin Enoxaparin Sodium 40 mg 03/08/18 10:00 03/08/18 10:32 Lovenox - SQ 40 mg DAILY PATRICK Administration Dextrose/Sodium Chloride 1,000 mls @ 75 mls/hr 03/08/18 02:30 03/08/18 02:33 D5-1/2ns - IV 75 mls/hr ASDIR PATRICK Administration Ceftriaxone Sodium 1 gm/ 50 mls @ 100 mls/hr 03/08/18 10:00 03/08/18 10:32 Dextrose IVPB 100 mls/hr DAILY PATRICK Administration Morphine Sulfate 4 mg 03/08/18 11:45 Morphine Sulfate IVPUSH Q4H PRN PAIN LEVEL 6-10 Ondansetron HCl 4 mg 03/08/18 02:16 Zofran Injection IVPUSH Q6H PRN NAUSEA Impression 1. CKD 2. hydronephrosis 3. hx uti 4. ovarian cysts 5. anemia 6. adnexal cyst 7. nephrolithiasis Plan - renal function at baseline - urology eval - pain control - no acute change in management - check ua
--- NOTE | 2018-03-08 13:32 | HP ---
Admitting History and Physical - Past Medical History Renal/: Yes: Renal Inusuff (s/p urinary diversion , ileal conduit 8 yrs ago at [facility] . 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 suspect thyroditis ) - Smoking History Smoking history: Current every day smoker Have you smoked in the past 12 months: Yes Aproximately how many cigarettes per day: 3 - Alcohol/Substance Use Hx Alcohol Use: No - Social History ADL: Independent History of Recent Travel: No Home Medications - Allergies Allergies/Adverse Reactions: Allergies Allergy/AdvReac Type Severity Reaction Status Date / Time No Known Allergies Allergy Verified 03/07/18 17:14 - Home Medications Home Medications: Ambulatory Orders NK [No Known Home Medication] 03/07/18 Family Disease History - Family Disease History Family Disease History: CA: Mother (MGM CA Breast) Physical Examination Vital Signs: Vital Signs Temperature 97.8 F 03/08/18 08:00 Pulse Rate 63 03/08/18 08:00 Respiratory Rate 20 03/08/18 08:00 Blood Pressure 112/61 03/08/18 08:00 O2 Sat by Pulse Oximetry (%) 98 03/08/18 08:00 Labs: CBC, BMP 03/08/18 07:00 03/08/18 07:00
--- NOTE | 2018-03-08 15:43 | CON.ID ---
Consult Consult Specialty:: infectious diseases Referred by:: Reason for Consultation:: chronic uti,rt flank pain - History of Present Illness Chief Complaint: rt flank pain History of Present Illness: Pt is a 42 year old female with pmhx of CKD, nephrolithiasis and ileal conduit who presented to my office yesterday for renal workup. She has a baseline creatinine of about 2. She had right groin pain that was severe and wanted to go to the ER for evaluation. She had similar pain on her last admission. She denies fevers or chills. awaiting for urology input patint also c/o of leg and heel pain mainly on the right side - History Source History Provided By: Patient Limitations to Obtaining History: No Limitations - Past Medical History Renal/: Yes: Renal Inusuff (s/p urinary diversion , ileal conduit 8 yrs ago at [facility] . consult seen ), Renal Calculi, UTI ...LMP: 03/07/18 ...: No Psych: Yes: Anxiety, Depression (pt has consult with psychiatrist & psychologist in current hospitalization) Endocrine: Yes: Other (abn TFT , candlemaker consult in current hospitalization suspect thyroditis ) - Alcohol/Substance Use Hx Alcohol Use: No - Smoking History Smoking history: Current every day smoker Have you smoked in the past 12 months: Yes Aproximately how many cigarettes per day: 3 - Social History Usual Living Arrangement: Alone ADL: Independent History of Recent Travel: No Home Medications - Allergies Allergies/Adverse Reactions: Allergies Allergy/AdvReac Type Severity Reaction Status Date / Time No Known Allergies Allergy Verified 03/07/18 17:14 - Home Medications Home Medications: Ambulatory Orders NK [No Known Home Medication] 03/07/18 Family Disease History - Family Disease History Family Disease History: CA: Mother (MGM [place] Breast) Review of Systems - Review of Systems Constitutional: reports: No Symptoms Eyes: reports: No Symptoms HENT: reports: No Symptoms Neck: reports: No Symptoms Cardiovascular: reports: No Symptoms Respiratory: reports: No Symptoms Gastrointestinal: reports: No Symptoms Genitourinary: reports: Flank Pain (rt) Musculoskeletal: reports: Other (rt heel and leg pain) Integumentary: reports: No Symptoms Neurological: reports: No Symptoms Endocrine: reports: No Symptoms Hematology/Lymphatic: reports: No Symptoms Psychiatric: reports: No Symptoms Physical Exam Vital Signs: Vital Signs Temperature 97.8 F 03/08/18 08:00 Pulse Rate 63 03/08/18 08:00 Respiratory Rate 20 03/08/18 08:00 Blood Pressure 112/61 03/08/18 08:00 O2 Sat by Pulse Oximetry (%) 98 03/08/18 08:00 Constitutional: Yes: Well Nourished, Calm, Mild Distress, Obese Cardiovascular: Yes: Regular Rate and Rhythm Respiratory: Yes: Regular, CTA Bilaterally Gastrointestinal: Yes: Normal Bowel Sounds, Soft Renal/: Yes: CVA Tenderness - Right, Other (ileal conduit) Musculoskeletal: Yes: WNL Extremities: Yes: WNL Neurological: Yes: Alert, Oriented Psychiatric: Yes: Alert, Oriented Labs: CBC, BMP 03/08/18 07:00 03/08/18 07:00 Imaging - Results Cat Scan: Report Reviewed, Image Reviewed Assessment/Plan Problem List - Problems (1) Flank pain Code(s): R10.9 - UNSPECIFIED ABDOMINAL PAIN (2) Renal insufficiency Code(s): N28.9 - DISORDER OF KIDNEY AND URETER, UNSPECIFIED (3) Urinary tract infection Assessment/Plan: Code(s): N39.0 - URINARY TRACT INFECTION, SITE NOT SPECIFIED plan await for all cx report await for urology to see the aptient rest as per he team
[2018-03-08] MEDS: morphine SULFATE 4 MG/ML VIAL IVPUSH PRN ×2 (16:21→20:33)
[2018-03-09] MEDS: morphine SULFATE 4 MG/ML VIAL IVPUSH PRN ×3 (02:25→14:32)
[2018-03-09] MEDS: DEXTROSE 5%-0.45% SALINE 1,000 ML IV SCH (05:49)
[2018-03-09] MEDS ORDERED: cefTRIAXone SODIUM 1 GM VIAL ONE (09:00)
[2018-03-09] MEDS ORDERED: DEXTROSE 5%-WATER - 50 ML IVPB ONE (09:00)
[2018-03-09] MEDS: CEFTRIAXONE 1 GM in DEXTROSE 5%-WATER - 50 ML IVPB SCH (09:02)
[2018-03-09] MEDS: ENOXAPARIN NA (PORCINE) 40 MG/0.4 ML DISP.SYRIN SQ SCH (09:02)
--- NOTE | 2018-03-09 09:33 | PN ---
Progress Note (short form) - Note Progress Note: UROLOGY NOTE. pt. with h/o of nephrolithiasia and rec. uti will dictate cocsult and follw with you
--- NOTE | 2018-03-09 14:32 | CON.GU ---
Consult Consult Specialty:: for Dr Castillo Referred by:: Valentina Reason for Consultation:: s/p ileal conduit - History of Present Illness Chief Complaint: abd pain History of Present Illness: 42 yo f w hx CKD, renal calculi, s/p ileal conduit adm 03/07 c/o abd pain and found to have bilat hydro and cons req. - History Source History Provided By: Patient, Medical Record Limitations to Obtaining History: No Limitations - Past Medical History Renal/: Yes: Renal Inusuff (s/p urinary diversion , ileal conduit 8 yrs ago at [facility] . 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 suspect thyroditis ) - Alcohol/Substance Use Hx Alcohol Use: No - Smoking History Smoking history: Never smoked Have you smoked in the past 12 months: Yes Aproximately how many cigarettes per day: 3 - Social History Usual Living Arrangement: Alone ADL: Independent History of Recent Travel: No Home Medications - Allergies Allergies/Adverse Reactions: Allergies Allergy/AdvReac Type Severity Reaction Status Date / Time No Known Allergies Allergy Verified 03/07/18 17:14 - Home Medications Home Medications: Ambulatory Orders NK [No Known Home Medication] 03/07/18 Family Disease History - Family Disease History Family Disease History: CA: Mother (MGM [place] Breast) Review of Systems - Review of Systems Genitourinary: reports: No Symptoms Physical Exam- Vital Signs: Vital Signs Temperature 98.4 F 03/09/18 06:00 Pulse Rate 58 L 03/09/18 06:00 Respiratory Rate 18 03/09/18 06:00 Blood Pressure 125/75 03/09/18 06:00 O2 Sat by Pulse Oximetry (%) 98 03/08/18 21:00 Renal/: Yes: Other (ileostomy) Labs: CBC, BMP 03/08/18 07:00 03/08/18 07:00 Imaging - Results Cat Scan: Report Reviewed Problem List - Problems (1) Flank pain Code(s): R10.9 - UNSPECIFIED ABDOMINAL PAIN (2) Renal insufficiency Code(s): N28.9 - DISORDER OF KIDNEY AND URETER, UNSPECIFIED (3) Urinary tract infection Assessment/Plan: ur c+s, iv abxs, f/u as outpt, consider loopogram Code(s): N39.0 - URINARY TRACT INFECTION, SITE NOT SPECIFIED
--- NOTE | 2018-03-09 14:49 | PN ---
Progress Note, Physician History of Present Illness: main complain pain in the heel flank pain better - Current Medication List Current Medications: Active Medications Enoxaparin Sodium (Lovenox -) 40 mg SQ DAILY [facility] Last Admin: 03/09/18 09:02 Dose: 40 mg Dextrose/Sodium Chloride (D5-1/2ns -) 1,000 mls @ 75 mls/hr IV ASDIR [facility] Last Admin: 03/09/18 05:49 Dose: 75 mls/hr Ceftriaxone Sodium 1 gm/ (Dextrose) 50 mls @ 100 mls/hr IVPB DAILY [facility] Last Admin: 03/09/18 09:02 Dose: 100 mls/hr Morphine Sulfate (Morphine Sulfate) 4 mg IVPUSH Q4H PRN PRN Reason: PAIN LEVEL 6-10 Last Admin: 03/09/18 14:32 Dose: 4 mg Ondansetron HCl (Zofran Injection) 4 mg IVPUSH Q6H PRN PRN Reason: NAUSEA - Objective Vital Signs: Vital Signs Temperature 98.4 F 03/09/18 06:00 Pulse Rate 58 L 03/09/18 06:00 Respiratory Rate 18 03/09/18 06:00 Blood Pressure 125/75 03/09/18 06:00 O2 Sat by Pulse Oximetry (%) 98 03/08/18 21:00 Constitutional: Yes: No Distress, Calm Cardiovascular: Yes: Regular Rate and Rhythm Respiratory: Yes: Regular, CTA Bilaterally Gastrointestinal: Yes: Normal Bowel Sounds, Soft Genitourinary: Yes: Other (urostomy) Musculoskeletal: Yes: WNL Extremities: Yes: Other (pain in the heel) Neurological: Yes: Alert, Oriented Labs: CBC, BMP 03/08/18 07:00 03/08/18 07:00 Assessment/Plan Problem List - Problems (1) Flank pain Code(s): R10.9 - UNSPECIFIED ABDOMINAL PAIN (2) Renal insufficiency Code(s): N28.9 - DISORDER OF KIDNEY AND URETER, UNSPECIFIED (3) Urinary tract infection Assessment/Plan: Code(s): N39.0 - URINARY TRACT INFECTION, SITE NOT SPECIFIED plan continue current mgmt podiatry to see the patient
--- NOTE | 2018-03-09 16:32 | PN ---
Progress Note, Physician History of Present Illness: Pt seen and examined at bedside. She is awake and alert. She still complains of flank pain. - Current Medication List Current Medications: Active Medications Enoxaparin Sodium (Lovenox -) 40 mg SQ DAILY [facility] Last Admin: 03/09/18 09:02 Dose: 40 mg Dextrose/Sodium Chloride (D5-1/2ns -) 1,000 mls @ 75 mls/hr IV ASDIR [facility] Last Admin: 03/09/18 05:49 Dose: 75 mls/hr Ceftriaxone Sodium 1 gm/ (Dextrose) 50 mls @ 100 mls/hr IVPB DAILY [facility] Last Admin: 03/09/18 09:02 Dose: 100 mls/hr Morphine Sulfate (Morphine Sulfate) 4 mg IVPUSH Q4H PRN PRN Reason: PAIN LEVEL 6-10 Last Admin: 03/09/18 14:32 Dose: 4 mg Ondansetron HCl (Zofran Injection) 4 mg IVPUSH Q6H PRN PRN Reason: NAUSEA - Objective Vital Signs: Vital Signs Temperature 98.3 F 03/09/18 08:00 Pulse Rate 68 03/09/18 08:00 Respiratory Rate 20 03/09/18 08:00 Blood Pressure 124/74 03/09/18 08:00 O2 Sat by Pulse Oximetry (%) 96 03/09/18 08:00 Constitutional: Yes: Calm Eyes: Yes: Conjunctiva Clear HENT: Yes: Atraumatic Cardiovascular: Yes: S1, S2 Gastrointestinal: Yes: Soft Genitourinary: Yes: Other (ileal conduit) Musculoskeletal: Yes: WNL Edema: No Neurological: Yes: Oriented Psychiatric: Yes: Oriented Labs: CBC, BMP 03/08/18 07:00 03/08/18 07:00 Problem List - Problems (1) Flank pain Code(s): R10.9 - UNSPECIFIED ABDOMINAL PAIN (2) Renal insufficiency Code(s): N28.9 - DISORDER OF KIDNEY AND URETER, UNSPECIFIED Assessment/Plan Current Medications Generic Name Dose Route Start Last Admin Trade Name Freq PRN Reason Stop Dose Admin Enoxaparin Sodium 40 mg 03/08/18 10:00 03/09/18 09:02 Lovenox - SQ 40 mg DAILY [facility] Administration Dextrose/Sodium Chloride 1,000 mls @ 75 mls/hr 03/08/18 02:30 03/09/18 05:49 D5-1/2ns - IV 75 mls/hr ASDIR [facility] Administration Ceftriaxone Sodium 1 gm/ 50 mls @ 100 mls/hr 03/08/18 10:00 03/09/18 09:02 Dextrose IVPB 100 mls/hr DAILY [facility] Administration Ondansetron HCl 4 mg 03/08/18 02:16 Zofran Injection IVPUSH Q6H PRN NAUSEA Impression 1. CKD 2. hydronephrosis 3. hx uti 4. ovarian cysts 5. anemia 6. adnexal cyst 7. nephrolithiasis Plan - can stop fluids - renal function at baseline - urology eval appreciated - pain control - no acute change in management
[2018-03-09] MEDS ORDERED: KETOROLAC TROMETHAMINE 30 MG/1 ML VIAL IVPUSH ONE (20:45)
--- NOTE | 2018-03-09 23:49 | PN ---
Progress Note, Physician - Current Medication List Current Medications: Active Medications Enoxaparin Sodium (Lovenox -) 40 mg SQ DAILY [facility] Last Admin: 03/09/18 09:02 Dose: 40 mg Dextrose/Sodium Chloride (D5-1/2ns -) 1,000 mls @ 75 mls/hr IV ASDIR [facility] Last Admin: 03/09/18 05:49 Dose: 75 mls/hr Ceftriaxone Sodium 1 gm/ (Dextrose) 50 mls @ 100 mls/hr IVPB DAILY [facility] Last Admin: 03/09/18 09:02 Dose: 100 mls/hr Ondansetron HCl (Zofran Injection) 4 mg IVPUSH Q6H PRN PRN Reason: NAUSEA - Objective Vital Signs: Vital Signs Temperature 98.3 F 03/09/18 08:00 Pulse Rate 68 03/09/18 08:00 Respiratory Rate 20 03/09/18 08:00 Blood Pressure 124/74 03/09/18 08:00 O2 Sat by Pulse Oximetry (%) 96 03/09/18 08:00 Labs: CBC, BMP 03/08/18 07:00 03/08/18 07:00
[2018-03-10 07:48] LABS: BASO % 0.3 % (0-2.0); EOS % 9.8 % (0-4.5); HEMATOCRIT 38.7 % (32.4-45.2); HEMOGLOBIN 13.2 GM/dL (10.7-15.3); LYMPH % 25.4 % (8-40); MCH 29.9 pg (25.7-33.7); MEAN CELL VOLUME 87.9 fl (80-96); MONO % 6.7 % (3.8-10.2); NEUT % 57.8 % (42.8-82.8); PLATELET COUNT 185 K/MM3 (134-434); RDW 14.8 % (11.6-15.6); WHITE BLOOD COUNT 5.2 K/mm3 (4.0-10.0)
--- NOTE | 2018-03-10 08:23 | CONSULT ---
Consult - text type - Consultation Consultation Note: Painful right heel for a few weeks. Very painful. Painful after long periods of rest. nvsgi, +tender right heel at insertion of plantar fascia to calcaneus, - ecchymosis, -cellulitis, wbc=wnl plantar fasciitis? r/o calcaneal fx heel spur? r/o possible gout xray ordered. uric acid, esr, will inject patient with cortisone and lidocaine if heel spur present and no other pathology identified in reference to foot pain. will follow.
[2018-03-10 08:25] LABS: ANION GAP 8 (8-16); BLOOD UREA NITROGEN 19 mg/dL (7-18); CHLORIDE 111 mmol/L (98-107); CO2 24 mmol/L (21-32); GLUCOSE,RANDOM 82 mg/dL (74-106); SGOT/AST 25 U/L (15-37); SGPT/ALT 25 U/L (12-78); SODIUM 143 mmol/L (136-145)
[2018-03-10 08:27] LABS: ALK PHOS 61 U/L (45-117); BILIRUBIN,TOTAL 0.3 mg/dL (0.2-1.0); CALCIUM 9.1 mg/dL (8.5-10.1); CREATININE 1.8 mg/dL (0.55-1.02); TOT PROT 6.5 g/dl (6.4-8.2)
[2018-03-10] MEDS ORDERED: PT OWN MED DRAWER 7, Y5N ONE (09:14)
[2018-03-10] MEDS ORDERED: cefTRIAXone SODIUM 1 GM VIAL ONE (09:17)
[2018-03-10] MEDS: CEFTRIAXONE 1 GM in DEXTROSE 5%-WATER - 50 ML IVPB SCH (09:31)
[2018-03-10] MEDS: ENOXAPARIN NA (PORCINE) 40 MG/0.4 ML DISP.SYRIN SQ SCH (09:32)
[2018-03-10] MEDS: morphine SULFATE 4 MG/ML VIAL IVPUSH PRN ×3 (10:06→21:59)
--- NOTE | 2018-03-10 12:11 | PN ---
Progress Note, Physician History of Present Illness: patient doing well no new issues - Current Medication List Current Medications: Active Medications Enoxaparin Sodium (Lovenox -) 40 mg SQ DAILY [facility] Last Admin: 03/10/18 09:32 Dose: 40 mg Dextrose/Sodium Chloride (D5-1/2ns -) 1,000 mls @ 75 mls/hr IV ASDIR [facility] Last Admin: 03/09/18 05:49 Dose: 75 mls/hr Ceftriaxone Sodium 1 gm/ (Dextrose) 50 mls @ 100 mls/hr IVPB DAILY [facility] Last Admin: 03/10/18 09:31 Dose: 100 mls/hr Morphine Sulfate (Morphine Sulfate) 2 mg IVPUSH Q6H PRN PRN Reason: PAIN LEVEL 6-10 Last Admin: 03/10/18 10:06 Dose: 2 mg Ondansetron HCl (Zofran Injection) 4 mg IVPUSH Q6H PRN PRN Reason: NAUSEA - Objective Vital Signs: Vital Signs Temperature 98.3 F 03/10/18 09:17 Pulse Rate 59 L 03/10/18 09:17 Respiratory Rate 14 03/10/18 09:17 Blood Pressure 125/80 03/10/18 09:17 O2 Sat by Pulse Oximetry (%) 96 03/09/18 08:00 Constitutional: Yes: No Distress, Calm Cardiovascular: Yes: Regular Rate and Rhythm Respiratory: Yes: Regular, CTA Bilaterally Gastrointestinal: Yes: Normal Bowel Sounds, Soft Genitourinary: Yes: Other (urostomy in place) Musculoskeletal: Yes: Other Neurological: Yes: Alert, Oriented Psychiatric: Yes: Alert, Oriented Labs: CBC, BMP 03/10/18 07:11 03/10/18 07:11 Assessment/Plan Problem List - Problems (1) Flank pain Code(s): R10.9 - UNSPECIFIED ABDOMINAL PAIN (2) Renal insufficiency Code(s): N28.9 - DISORDER OF KIDNEY AND URETER, UNSPECIFIED (3) Urinary tract infection Assessment/Plan: Code(s): N39.0 - URINARY TRACT INFECTION, SITE NOT SPECIFIED cx report noted sensitivities noted plan continue current mgmt continue abx
[2018-03-10] MEDS: DEXTROSE 5%-0.45% SALINE 1,000 ML IV SCH (15:54)
--- NOTE | 2018-03-10 16:29 | PN ---
Progress Note, Physician - Current Medication List Current Medications: Active Medications Enoxaparin Sodium (Lovenox -) 40 mg SQ DAILY [facility] Last Admin: 03/10/18 09:32 Dose: 40 mg Dextrose/Sodium Chloride (D5-1/2ns -) 1,000 mls @ 75 mls/hr IV ASDIR [facility] Last Admin: 03/10/18 15:54 Dose: 75 mls/hr Ceftriaxone Sodium 1 gm/ (Dextrose) 50 mls @ 100 mls/hr IVPB DAILY [facility] Last Admin: 03/10/18 09:31 Dose: 100 mls/hr Morphine Sulfate (Morphine Sulfate) 2 mg IVPUSH Q6H PRN PRN Reason: PAIN LEVEL 6-10 Last Admin: 03/10/18 10:06 Dose: 2 mg Ondansetron HCl (Zofran Injection) 4 mg IVPUSH Q6H PRN PRN Reason: NAUSEA - Objective Vital Signs: Vital Signs Temperature 98.0 F 03/10/18 14:00 Pulse Rate 52 L 03/10/18 14:00 Respiratory Rate 17 03/10/18 14:00 Blood Pressure 129/78 03/10/18 14:00 O2 Sat by Pulse Oximetry (%) 96 03/09/18 08:00 Labs: CBC, BMP 03/10/18 07:11 03/10/18 07:11
[2018-03-10 22:02] VITALS: TEMP 98.4
[2018-03-11] MEDS: DEXTROSE 5%-0.45% SALINE 1,000 ML IV SCH ×2 (03:00→11:44)
[2018-03-11] MEDS: morphine SULFATE 4 MG/ML VIAL IVPUSH PRN ×2 (03:57→09:55)
[2018-03-11] MEDS ORDERED: cefTRIAXone SODIUM 1 GM VIAL ONE (09:46)
[2018-03-11] MEDS: ENOXAPARIN NA (PORCINE) 40 MG/0.4 ML DISP.SYRIN SQ SCH (09:50)
[2018-03-11] MEDS: CEFTRIAXONE 1 GM in DEXTROSE 5%-WATER - 50 ML IVPB SCH (09:50)
[2018-03-11 10:50] VITALS: BP 130/88; PULSE 66
--- NOTE | 2018-03-11 11:48 | DS ---
Physical Examination Vital Signs: Vital Signs Temperature 98.4 F 03/10/18 20:00 Pulse Rate 66 03/11/18 09:00 Respiratory Rate 18 03/11/18 09:00 Blood Pressure 130/88 03/11/18 09:00 O2 Sat by Pulse Oximetry (%) 98 03/11/18 09:00 Labs: CBC, BMP 03/10/18 07:11 03/10/18 07:11 Discharge Summary Reason For Visit: URINARY TRACT INFECTION;RENAL INSUFFICIENCY Current Active Problems Flank pain (Acute) Renal insufficiency (Acute) Urinary tract infection (Acute) Condition: Good - Instructions Diet, Activity, Other Instructions: Regular deiet See Dr Castillo in 1 week See your urologist in 1 week Referrals: Rayne Castillo MD [Primary Care Provider] - Disposition: HOME - Home Medications Comprehensive Discharge Medication List: Ambulatory Orders Levofloxacin [Levaquin] 500 mg PO DAILY #7 tablet 03/11/18
--- NOTE | 2018-03-11 11:59 | PN ---
Progress Note, Physician History of Present Illness: doing well no complaints - Current Medication List Current Medications: Active Medications Enoxaparin Sodium (Lovenox -) 40 mg SQ DAILY [facility] Last Admin: 03/11/18 09:50 Dose: 40 mg Dextrose/Sodium Chloride (D5-1/2ns -) 1,000 mls @ 75 mls/hr IV ASDIR [facility] Last Admin: 03/11/18 11:44 Dose: 75 mls/hr Ceftriaxone Sodium 1 gm/ (Dextrose) 50 mls @ 100 mls/hr IVPB DAILY [facility] Last Admin: 03/11/18 09:50 Dose: 100 mls/hr Morphine Sulfate (Morphine Sulfate) 2 mg IVPUSH Q6H PRN PRN Reason: PAIN LEVEL 6-10 Last Admin: 03/11/18 09:55 Dose: 2 mg Ondansetron HCl (Zofran Injection) 4 mg IVPUSH Q6H PRN PRN Reason: NAUSEA - Objective Vital Signs: Vital Signs Temperature 98.4 F 03/10/18 20:00 Pulse Rate 66 03/11/18 09:00 Respiratory Rate 18 03/11/18 09:00 Blood Pressure 130/88 03/11/18 09:00 O2 Sat by Pulse Oximetry (%) 98 03/11/18 09:00 Constitutional: Yes: No Distress, Calm Cardiovascular: Yes: Regular Rate and Rhythm Respiratory: Yes: Regular, CTA Bilaterally Gastrointestinal: Yes: Normal Bowel Sounds, Soft Musculoskeletal: Yes: WNL Extremities: Yes: WNL Neurological: Yes: Alert, Oriented Psychiatric: Yes: Alert, Oriented Labs: CBC, BMP 03/10/18 07:11 03/10/18 07:11 Assessment/Plan Problem List - Problems (1) Flank pain Code(s): R10.9 - UNSPECIFIED ABDOMINAL PAIN (2) Renal insufficiency Code(s): N28.9 - DISORDER OF KIDNEY AND URETER, UNSPECIFIED (3) Urinary tract infection Assessment/Plan: Code(s): N39.0 - URINARY TRACT INFECTION, SITE NOT SPECIFIED cx report noted sensitivities noted plan continue current mgmt will change abx to ceftin to 250 mg bid for 7 days
[2018-03-11] MEDS ORDERED: CEFUROXIME AXETIL 250 MG TABLET PO SCH (22:00)
--- NOTE | 2018-03-12 18:04 | CONS ---
DATE OF CONSULTATION: DATE OF DICTATION: 03/12/2018 She is a 42-year-old female who underwent a radical cystectomy with ileal conduit, eight years earlier for invasive bladder cancer. She has also has a history of nephrolithiasis and recurrent urinary tract infections. The patient also has a history of iron-deficiency anemia, anxiety, and depression. She is followed by a psychiatrist as an outpatient. Patient also has a history of hypothyroidism. She does smoke cigarettes. She denies any ethanol use. She does live at home. She denies any allergies. In the emergency room she was afebrile. Her temperature was 120/60. Her white count was 7.6, hemoglobin was 1.9, hematocrit was 25. The patient had a urine culture and sensitivity, which grew out Escherichia coli. Therefore, ID was consulted and she was placed on enoxaparin intravenously. She had a benign and uneventful postoperative course. An ultrasound of her kidneys revealed bilateral hydroureteronephrosis. A CAT scan of her abdomen three days prior to discharge revealed a 5-mm stone in the right lower pole of the kidney. Gallstones were also seen. The cystic duct as well as the common bile duct were not dilated. She also had mild dilation of both the right and left ureter. A urinalysis revealed a large amount of blood. Because of the patient's persistent microscopic hematuria, it is recommended that the patient undergo an ileogram as well as a possible ileal ureterogram with possible ureteral dilation. This can be done as an outpatient. This was discussed with the patient and she will be discharged home on March 11, 2018. She will be followed in our office on March 15, 2018 for further workup. Dania [id number]
== END 2018-03-11 12:38 | disposition home or self-care (01) | DRG 463 ==
LOC: JER 16:58 → JERBED 22:19 → J6S 03-08 01:00
PROVIDERS: ADMIT Internal Medicine; ATTEND Internal Medicine
DX: N39.0 Urinary tract infection, site not specified (principal); N18.9 Chronic kidney disease, unspecified; F17.210 Nicotine dependence, cigarettes, uncomplicated; N83.209 Unspecified ovarian cyst, unspecified side; Z68.37 Body mass index [BMI] 37.0-37.9, adult; E66.9 Obesity, unspecified; F41.8 Other specified anxiety disorders; D50.9 Iron deficiency anemia, unspecified; N13.30 Unspecified hydronephrosis
CPT/HCPCS: 36415; 74176; 76775-TC; 80053; 81003; 81015; 84550; 84703; 85025; 87086; 87186; 99284-25

== ENCOUNTER 2018-04-06 19:25 | Inpatient (IN) | payer OTHER ==
--- NOTE | 2018-04-06 19:31 | PDOC ---
Rapid Medical Evaluation Time Seen by Provider: 04/06/18 19:27 Medical Evaluation: Allergies Allergy/AdvReac Type Severity Reaction Status Date / Time No Known Allergies Allergy Verified 03/07/18 17:14 04/06/18 19:27 I have performed a brief in-person evaluation of this patient. The patient presents with a chief complaint of: right pelvic pain Pertinent physical exam findings: No CVAT. RLQ tenderness I have ordered the following: urine, labs, Spiral CT The patient will proceed to the ED for further evaluation. Discharge Disposition - Diagnosis RLQ abdominal pain - Referrals - Patient Instructions - Post Discharge Activity
[2018-04-06 20:09] LABS: BASO % 0.9 % (0-2.0); EOS % 9.7 % (0-4.5); HEMATOCRIT 40.1 % (32.4-45.2); HEMOGLOBIN 13.7 GM/dL (10.7-15.3); LYMPH % 25.6 % (8-40); MCH 30.3 pg (25.7-33.7); MCHC 34.2 g/dl (32.0-36.0); MEAN CELL VOLUME 88.5 fl (80-96); MEAN PLT VOLUME 8.8 fl (7.5-11.1); MONO % 6.9 % (3.8-10.2); NEUT % 56.9 % (42.8-82.8); PLATELET COUNT 215 K/MM3 (134-434); RBC 4.53 M/mm3 (3.60-5.2); RDW 14.9 % (11.6-15.6); WHITE BLOOD COUNT 6.6 K/mm3 (4.0-10.0)
[2018-04-06 20:21] LABS: URINE APPEARANCE CLOUDY; URINE BILIRUBIN NEGATIVE (<2.0 mg/dL); URINE BLOOD 3+ (NEGATIVE); URINE COLOR YELLOW; URINE GLUCOSE (UA) NEGATIVE (NEGATIVE); URINE KETONE NEGATIVE (NEGATIVE); URINE NITRITE POSITIVE (NEGATIVE); URINE UROBILINOGEN NEGATIVE mg/dL (0.2-1.0)
[2018-04-06 20:25] LABS: URINE LEUK ESTERASE 3+ (NEGATIVE); URINE PROTEIN 2+ (NEGATIVE)
[2018-04-06 20:28] LABS: EPI CELLS RARE /HPF (FEW); URINE BACTERIA MODERATE /hpf (NONE SEEN)
[2018-04-06] MEDS ORDERED: ACETAMINOPHEN 500 MG TABLET (FP) PO ONE (20:40)
[2018-04-06 20:46] LABS: HCG,QUALITATIVE URINE NEGATIVE
[2018-04-06] MEDS ORDERED: ACETAMINOPHEN 325 MG TABLET (FP) ONE (20:46)
[2018-04-06] MEDS ORDERED: morphine CARPU-JECT 2 MG/1 ML DISP.SYRIN IVPUSH ONE (20:48)
--- NOTE | 2018-04-06 21:02 | PDOC ---
History of Present Illness <Varun Shepard - Last Filed: 04/06/18 23:03> - General History Source: Patient Exam Limitations: No Limitations - History of Present Illness Initial Comments: 04/06/18 22:23 The patient is a 42 year old female with a significant past medical history of anemia, ileal conduit, and kidney failure who presents to the emergency department for evaluation of RLQ abdominal pain. The patient reports a 1 day history of RLQ pain. She describes the RLQ pain as sharp and constant in nature. She reports being admitted twice for similar symptoms in February. The patient denies chest pain, shortness of breath, headache, and dizziness. Denies fever, chills, diarrhea, constipation, nausea, and vomiting. Denies dysuria, frequency, urgency, and hematuria. Allergies: NKDA Social history: Current everyday smoker. No reported alcohol consumption or drug use. Surgical history: Kidney stone. PCP: Dr. Mynor Castillo ([phone]) <Samara Carbone - Last Filed: 04/06/18 23:18> - General Chief Complaint: Pain Stated Complaint: PAIN, ACUTE Time Seen by Provider: 04/06/18 19:27 Past History - Past Medical History Anemia: Yes COPD: No Disorders: Yes (Ileal Conduit, H/O KIDNEY STONES) Kidney Stones: Yes (kidney failure) - Reproductive History (#): 0 Para: 0 - Immunization History Immunization Up to Date: Yes - Suicide/Smoking/Psychosocial Hx Smoking Status: No Smoking History: Current every day smoker Have you smoked in the past 12 months: Yes Number of Cigarettes Smoked Daily: 3 Cigars Per Day: 0 Information on smoking cessation initiated: No 'Breaking Loose' booklet given: 02/15/18 Hx Alcohol Use: No Drug/Substance Use Hx: No Substance Use Type: Marijuana Hx Substance Use Treatment: No <Varun Shepard - Last Filed: 04/06/18 23:03> <Samara Carbone - Last Filed: 04/06/18 23:18> - Past Medical History Allergies/Adverse Reactions: Allergies Allergy/AdvReac Type Severity Reaction Status Date / Time No Known Allergies Allergy Verified 04/06/18 19:32 Home Medications: Ambulatory Orders Cefuroxime Axetil [Ceftin -] 250 mg PO BID #14 tablet 03/11/18 Review of Systems - Review of Systems Able to Perform ROS?: Yes Comments:: CONSTITUTIONAL: No fever, no chills, no fatigue EYES: No visual changes ENT: No ear pain, no sore throat CARDIOVASCULAR: No chest pain, no palpitations RESPIRATORY: No cough, no SOB GI: (+) RLQ abdominal pain. No nausea, no vomiting, no constipation, no diarrhea GENITOURINARY: No dysuria, no frequency, no hematuria MUSKULOSKELETAL: No backpain, no joint pain, no myalgias SKIN: No rash NEURO: No headache. <Samara Carbone - Last Filed: 04/06/18 23:18> *Physical Exam - Vital Signs Last Vital Signs Temp Pulse Resp BP Pulse Ox 98.1 F 71 19 128/83 98 04/06/18 19:28 04/06/18 19:28 04/06/18 19:28 04/06/18 19:28 04/06/18 19:28 <Varun Shepard - Last Filed: 04/06/18 23:03> - Vital Signs Last Vital Signs Temp Pulse Resp BP Pulse Ox 98.1 F 71 19 128/83 98 04/06/18 19:28 04/06/18 19:28 04/06/18 19:28 04/06/18 19:28 04/06/18 19:28 - Physical Exam Comments: CONSTITUTIONAL: Well-appearing; well-nourished; in no apparent distress HEAD: Normocephalic; atraumatic EYES: PERRL; EOM intact ENMT: External appears normal; normal oropharynx NECK: Supple; non-tender; no cervical lymphadenopathy CARD: Normal S1, S2; no murmurs, rubs, or gallops RESP: Normal chest excursion with respiration; breath sounds clear and equal bilaterally; no wheezes, rhonchi, or rales ABD: (+) Mild RLQ tenderness. (+) cystostomy bag RLQ. Soft, non-distended; no palpable organomegaly, no palpable hernias EXT: Normal ROM in all four extremities; non-tender to palpation; distal pulses intact SKIN: Warm, dry, no rash NEURO: No focal neurological deficiencies. <Samara Carbone - Last Filed: 04/06/18 23:18> Heart Score/ECG Review - ECG Impressions Comment:: EKG was reviewed by Dr. Shepard at 23:16. Impression: Sinus bradycardia with sinus arrhythmia. Low voltage QRS. Borderline ECG. Vent. rate: 51 bpm MN interval: 162 ms QRS duration: 82 ms QT/QTc: 446/411 ms PRT axes: 46 37 51 <Samara Carbone - Last Filed: 04/06/18 23:18> ED Treatment Course - LABORATORY CBC & Chemistry Diagram: 04/06/18 19:41 04/06/18 20:45 - ADDITIONAL ORDERS Additional order review: Laboratory Results 04/06/18 04/06/18 19:41 19:41 Sodium Cancelled Potassium Cancelled Chloride Cancelled Carbon Dioxide Cancelled Anion Gap Cancelled BUN Cancelled Creatinine Cancelled Creat Clearance w eGFR Cancelled Random Glucose Cancelled Calcium Cancelled Total Bilirubin Cancelled AST Cancelled ALT Cancelled Alkaline Phosphatase Cancelled Total Protein Cancelled Albumin Cancelled Urine Color Yellow Urine Appearance Cloudy Urine pH 7.0 Ur Specific Rosalia 1.010 Urine Protein 2+ H Urine Glucose (UA) Negative Urine Ketones Negative Urine Blood 3+ H Urine Nitrite Positive Urine Bilirubin Negative Urine Urobilinogen Negative Ur Leukocyte Esterase 3+ H Urine WBC (Auto) 138 Urine RBC (Auto) 1047 Ur Epithelial Cells Rare Urine Bacteria Moderate Urine HCG, Qual Negative 04/06/18 19:41 RBC 4.53 MCV 88.5 MCHC 34.2 RDW 14.9 MPV 8.8 Neutrophils % 56.9 Lymphocytes % 25.6 Monocytes % 6.9 Eosinophils % 9.7 H Basophils % 0.9 - Medications Given in the ED: ED Medications Discontinued Medications Generic Name Dose Route Start Last Admin Trade Name Freq PRN Reason Stop Dose Admin Acetaminophen 975 mg 04/06/18 20:40 04/06/18 20:45 Tylenol - PO 04/06/18 20:41 975 mg ONCE ONE Administration <Varun Shepard - Last Filed: 04/06/18 23:03> - LABORATORY CBC & Chemistry Diagram: 04/06/18 19:41 04/06/18 20:45 - ADDITIONAL ORDERS Additional order review: Laboratory Results 04/06/18 04/06/18 04/06/18 20:45 19:41 19:41 Sodium 143 Cancelled Potassium 4.2 Cancelled Chloride 114 H Cancelled Carbon Dioxide 24 Cancelled Anion Gap 5 L Cancelled BUN 22 H Cancelled Creatinine 2.1 H Cancelled Creat Clearance w eGFR 25.70 Cancelled Random Glucose 79 Cancelled Calcium 8.3 L Cancelled Total Bilirubin 0.2 D Cancelled AST 16 Cancelled ALT 16 Cancelled Alkaline Phosphatase 70 Cancelled Total Protein 6.7 Cancelled Albumin 3.2 L Cancelled Urine Color Yellow Urine Appearance Cloudy Urine pH 7.0 Ur Specific Rosalia 1.010 Urine Protein 2+ H Urine Glucose (UA) Negative Urine Ketones Negative Urine Blood 3+ H Urine Nitrite Positive Urine Bilirubin Negative Urine Urobilinogen Negative Ur Leukocyte Esterase 3+ H Urine WBC (Auto) 138 Urine RBC (Auto) 1047 Ur Epithelial Cells Rare Urine Bacteria Moderate Urine HCG, Qual Negative 04/06/18 19:41 RBC 4.53 MCV 88.5 MCHC 34.2 RDW 14.9 MPV 8.8 Neutrophils % 56.9 Lymphocytes % 25.6 Monocytes % 6.9 Eosinophils % 9.7 H Basophils % 0.9 - Medications Given in the ED: ED Medications Discontinued Medications Generic Name Dose Route Start Last Admin Trade Name Kadeemq PRN Reason Stop Dose Admin Acetaminophen 975 mg 04/06/18 20:40 04/06/18 20:45 Tylenol - PO 04/06/18 20:41 975 mg ONCE ONE Administration Morphine Sulfate 2 mg 04/06/18 20:48 04/06/18 21:32 Morphine Injection - IVPUSH 04/06/18 20:49 2 mg ONCE ONE Administration <Samara Carbone - Last Filed: 04/06/18 23:18> Medical Decision Making - Medical Decision Making 04/06/18 23:05 42-year-old female with history of chronic bilateral hydronephrosis, status post cystectomy with ileal conduit presents to the ER with atraumatic right- sided abdominal pain radiating to the right thigh that arose on the day of arrival. In the ER, patient is awake and alert, afebrile, nontoxic appearing. CBC reveals no evidence of significant leukocytosis. CMP reveals mildly worsening renal function with creatinine of 2.1 (increased from baseline of 1.8) ; urinalysis reveals pyuria with hematuria. CT of abdomen and pelvis reveals persistent bilateral hydronephrosis, 6 mm right renal stone no evidence of obstructing distal stones. On physical evaluation, patient has minimal right- sided abdominal tenderness which may be related to recently passed stone. Review of medical record reveals latest urine culture positive for Escherichia coli sensitive to ceftriaxone. Urine cultures been obtained. We'll administer 2 g ceftriaxone. We'll chemical laboratory tester IV fluids. We will administer pain meds when necessary. Will admit for further evaluation and antibiotic treatment of the patient with chronic renal insufficiency, chronic bilateral hydronephrosis with worsening renal function. <Varun Shepard - Last Filed: 04/06/18 23:03> - Medical Decision Making Cased discussed with Dr. Cote at 22:19. <Samara Carbone - Last Filed: 04/06/18 23:18> *DC/Admit/Observation/Transfer - Discharge Dispostion Decision to Admit order: Yes - Attestations Physician Attestion: 04/06/18 23:04 The documentation was prepared by the scribe under my direct supervision. I have reviewed the documentation which correctly represents the findings, medical decision-making and critical action taken by me. <Varun Shepard - Last Filed: 04/06/18 23:03> - Attestations Scribe Attestion: Documentation prepared by Samara Carbone, acting as medical videographer for Varun Shepard MD/DO. <Samara Carbone - Last Filed: 04/06/18 23:18> Diagnosis at time of Disposition: Renal insufficiency Urinary tract infection Qualifiers: Urinary tract infection type: acute cystitis Hematuria presence: with hematuria Qualified Code(s): N30.01 - Acute cystitis with hematuria - Discharge Dispostion Condition at time of disposition: Fair
[2018-04-06] MEDS ORDERED: morphine SULFATE 4 MG/ML VIAL ONE (21:18)
[2018-04-06 21:28] LABS: ALBUMIN 3.2 g/dl (3.4-5.0); ALK PHOS 70 U/L (45-117); ANION GAP 5 (8-16); BILIRUBIN,TOTAL 0.2 mg/dL (0.2-1.0); BLOOD UREA NITROGEN 22 mg/dL (7-18); CALCIUM 8.3 mg/dL (8.5-10.1); CHLORIDE 114 mmol/L (98-107); CO2 24 mmol/L (21-32); CREATININE 2.1 mg/dL (0.55-1.02); GLUCOSE,RANDOM 79 mg/dL (74-106); POTASSIUM 4.2 mmol/L (3.5-5.1); SGOT/AST 16 U/L (15-37); SGPT/ALT 16 U/L (12-78); SODIUM 143 mmol/L (136-145); TOT PROT 6.7 g/dl (6.4-8.2)
[2018-04-06] MEDS: SODIUM CHLORIDE 1,000 ML IV SCH (21:32)
[2018-04-06] MEDS ORDERED: CEFTRIAXONE 2,000 MG in DEXTROSE 5%-WATER - 50 ML IVPB ONE (22:13)
[2018-04-06] MEDS ORDERED: SODIUM CHLORIDE 500 ML IV STA (22:14)
[2018-04-06] MEDS ORDERED: CEFTRIAXONE 2 GM/100 ML BAG IVPB ONE (22:51)
[2018-04-07] MEDS: SODIUM CHLORIDE 1,000 ML IV SCH (00:31)
[2018-04-07] MEDS: KETOROLAC TROMETHAMINE 30 MG/1 ML VIAL IVPUSH PRN ×4 (01:13→20:47)
[2018-04-07 01:53] VITALS: BMI 38.2
[2018-04-07] MEDS: DEXTROSE 5%-0.45% SALINE 1,000 ML IV SCH (02:30)
[2018-04-07 07:41] LABS: BASO % 0.4 % (0-2.0); EOS % 10.1 % (0-4.5); HEMOGLOBIN 12.5 GM/dL (10.7-15.3); LYMPH % 24.4 % (8-40); MCH 30.9 pg (25.7-33.7); MCHC 34.8 g/dl (32.0-36.0); MEAN CELL VOLUME 88.8 fl (80-96); MEAN PLT VOLUME 9.8 fl (7.5-11.1); MONO % 6.6 % (3.8-10.2); NEUT % 58.5 % (42.8-82.8); PLATELET COUNT 190 K/MM3 (134-434); RBC 4.05 M/mm3 (3.60-5.2); RDW 14.9 % (11.6-15.6); WHITE BLOOD COUNT 6.1 K/mm3 (4.0-10.0)
[2018-04-07 08:26] LABS: CHLORIDE 114 mmol/L (98-107); POTASSIUM 4.3 mmol/L (3.5-5.1); SODIUM 143 mmol/L (136-145)
[2018-04-07 08:56] LABS: ALBUMIN 2.8 g/dl (3.4-5.0); ALK PHOS 60 U/L (45-117); ANION GAP 6 (8-16); BILIRUBIN,TOTAL 0.2 mg/dL (0.2-1.0); BLOOD UREA NITROGEN 25 mg/dL (7-18); CALCIUM 7.9 mg/dL (8.5-10.1); CO2 23 mmol/L (21-32); CREATININE 2.1 mg/dL (0.55-1.02); GLUCOSE,RANDOM 92 mg/dL (74-106); SGOT/AST 15 U/L (15-37); SGPT/ALT 14 U/L (12-78); TOT PROT 5.9 g/dl (6.4-8.2)
[2018-04-07] MEDS: HEPARIN NA (PORCINE) 5,000 UNITS/ML 1ML VIAL SQ SCH ×2 (09:27→20:59)
--- NOTE | 2018-04-07 11:29 | CON.ID ---
Consult Consult Specialty:: infectious diseases Referred by:: Reason for Consultation:: uti - History of Present Illness Chief Complaint: abd pain History of Present Illness: 42-year-old female with history of chronic bilateral hydronephrosis, status post cystectomy with ileal conduit presents admitted because of abd pain mainly rt side . Patient has had this issue for some time now patient had. CT of abdomen and pelvis reveals persistent bilateral hydronephrosis, 6 mm right renal stone no evidence of obstructing distal stones. patient currently still c/o of rt sided abd pain otherwise patient looks comfortable on work up it shows again that probably her urine is infected denies any flank pain - History Source History Provided By: Patient Limitations to Obtaining History: No Limitations - Past Medical History Renal/: Yes: Renal Inusuff (s/p urinary diversion , ileal conduit 8 yrs ago at [facility] . 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 suspect thyroditis ) - Alcohol/Substance Use Hx Alcohol Use: No - Smoking History Smoking history: Current every day smoker Have you smoked in the past 12 months: Yes Aproximately how many cigarettes per day: 3 - Social History Usual Living Arrangement: Alone ADL: Independent History of Recent Travel: No Home Medications - Allergies Allergies/Adverse Reactions: Allergies Allergy/AdvReac Type Severity Reaction Status Date / Time No Known Allergies Allergy Verified 04/06/18 19:32 - Home Medications Home Medications: Ambulatory Orders Cefuroxime Axetil [Ceftin -] 250 mg PO BID #14 tablet 03/11/18 Family Disease History - Family Disease History Family Disease History: CA: Mother (MGM [place] Breast) Review of Systems - Review of Systems Constitutional: reports: No Symptoms Eyes: reports: No Symptoms HENT: reports: No Symptoms Neck: reports: No Symptoms Cardiovascular: reports: No Symptoms Respiratory: reports: No Symptoms Gastrointestinal: reports: No Symptoms Genitourinary: reports: No Symptoms Musculoskeletal: reports: No Symptoms Integumentary: reports: No Symptoms Neurological: reports: No Symptoms Endocrine: reports: No Symptoms Hematology/Lymphatic: reports: No Symptoms Psychiatric: reports: No Symptoms Physical Exam Vital Signs: Vital Signs Temperature 99.6 F 04/07/18 00:36 Pulse Rate 54 L 04/07/18 00:36 Respiratory Rate 18 04/07/18 00:36 Blood Pressure 118/83 04/07/18 00:36 O2 Sat by Pulse Oximetry (%) 98 04/06/18 19:28 Constitutional: Yes: Well Nourished, No Distress, Calm Eyes: Yes: Conjunctiva Clear HENT: Yes: Atraumatic Neck: Yes: Supple, Trachea Midline Cardiovascular: Yes: Regular Rate and Rhythm Respiratory: Yes: Regular, CTA Bilaterally Gastrointestinal: Yes: Normal Bowel Sounds, Soft, Other (urostomy drug) Musculoskeletal: Yes: WNL Extremities: Yes: Delayed Capillary Refill Neurological: Yes: Alert, Oriented Psychiatric: Yes: Alert, Oriented Labs: CBC, BMP 04/07/18 06:00 04/07/18 06:00 Imaging - Results Cat Scan: Report Reviewed, Image Reviewed Assessment/Plan this patient with medical problems and persistent bilateral hydro and renal stones uti abd pain plan await for all cx report will continue cefriaxone await for urology to see the patient rest as per primary team
[2018-04-07] MEDS ORDERED: cefTRIAXone SODIUM 1 GM VIAL ONE (12:56)
[2018-04-07] MEDS ORDERED: DEXTROSE 5%-WATER - 50 ML IVPB ONE (12:56)
[2018-04-07] MEDS: CEFTRIAXONE 1 GM in DEXTROSE 5%-WATER - 50 ML IVPB SCH (12:58)
--- NOTE | 2018-04-07 17:27 | HP ---
Admitting History and Physical - Admission History of Present Illness: Pt is a 42 y/o female with PMH significant for anemia, anxiety/depression, endometriosis, CKD and urinary diversion/ileal conduit(? unclear if due to kidney stones and renal failure many yrs ago at [facility]) w/ urostomy stoma/bag. Pt also has had multiple admissions for recurrent RLQ abdominal pain and recurrent UTI's. Pt again presents to the ER w/ similiar complaints of RLQ. Pt also complains of dysuria. In the ER pt had ct scan abd showed s/p cystectomy w/ ileal conduit, b/l hydronephrosis, RT nephrolithiasis, umbilical hernia and Rt ovarian cyst. 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 suspect thyroditis ) - Past Surgical History Additional Past Surgical History: Ileal conduit Ovarian cystectomy - Smoking History Smoking history: Current every day smoker Have you smoked in the past 12 months: Yes Aproximately how many cigarettes per day: 3 - Alcohol/Substance Use Hx Alcohol Use: No - Social History ADL: Independent History of Recent Travel: No Home Medications - Allergies Allergies/Adverse Reactions: Allergies Allergy/AdvReac Type Severity Reaction Status Date / Time No Known Allergies Allergy Verified 04/06/18 19:32 - Home Medications Home Medications: Ambulatory Orders Cefuroxime Axetil [Ceftin -] 250 mg PO BID #14 tablet 03/11/18 Family Disease History - Family Disease History Family History: Unremarkable Family Disease History: CA: Mother (MGM [place] Breast) Review of Systems - Review of Systems Constitutional: reports: No Symptoms HENT: reports: No Symptoms Neck: reports: No Symptoms Cardiovascular: reports: No Symptoms Respiratory: reports: No Symptoms Gastrointestinal: reports: Abdominal Pain Genitourinary: reports: Dysuria Musculoskeletal: reports: No Symptoms Physical Examination Vital Signs: Vital Signs Temperature 98.3 F 04/07/18 16:15 Pulse Rate 65 04/07/18 16:15 Respiratory Rate 20 04/07/18 16:15 Blood Pressure 145/87 04/07/18 16:15 O2 Sat by Pulse Oximetry (%) 98 04/06/18 19:28 Constitutional: Yes: Well Nourished HENT: Yes: WNL Neck: Yes: WNL, Supple Cardiovascular: Yes: WNL, Regular Rate and Rhythm Respiratory: Yes: WNL, Regular, CTA Bilaterally Gastrointestinal: Yes: Normal Bowel Sounds, Soft, Other (RLQ urostomy) Extremities: Yes: WNL Edema: No Neurological: Yes: WNL, Alert, Oriented ...Motor Strength: WNL Labs: CBC, BMP 04/07/18 06:00 04/07/18 06:00 Problem List - Problems (1) RLQ abdominal pain Assessment/Plan: ?Due to UTI Cont IV antibiotics/IVF Follow cultuers Pt does have rt kidney stone(nonobstructing) ID/uro consults Cont pain meds Code(s): R10.31 - RIGHT LOWER QUADRANT PAIN (2) Renal insufficiency Assessment/Plan: Acute on chronic renal failure Cont IVF Cont to monitor Code(s): N28.9 - DISORDER OF KIDNEY AND URETER, UNSPECIFIED (3) Anemia Assessment/Plan: Multifactorial Monitor H/H Code(s): D64.9 - ANEMIA, UNSPECIFIED (4) Anxiety Code(s): F41.9 - ANXIETY DISORDER, UNSPECIFIED (5) Depression Code(s): F32.9 - MAJOR DEPRESSIVE DISORDER, SINGLE EPISODE, UNSPECIFIED (6) History of nephrolithiasis Code(s): Z87.442 - PERSONAL HISTORY OF URINARY CALCULI (8) Smoking Code(s): F17.200 - NICOTINE DEPENDENCE, UNSPECIFIED, UNCOMPLICATED
--- NOTE | 2018-04-07 17:52 | PN ---
Progress Note (short form) - Note Progress Note: UROLOGY NOTE. Pt. with ileal conduet for pelvic endometreosis 8 yr. ago .she presents with rt. flanf pain. h/o rec. uti and low back pain. Will sugg. diuretic nuclear renal scan to r/o function obs.
[2018-04-07] MEDS ORDERED: INSULIN (NOVOLOG) ASPART 100 UNITS/ML 10ML VIAL ONE (20:13)
[2018-04-08] MEDS: KETOROLAC TROMETHAMINE 30 MG/1 ML VIAL IVPUSH PRN ×2 (01:24→18:28)
[2018-04-08] MEDS: DEXTROSE 5%-0.45% SALINE 1,000 ML IV SCH (02:30)
[2018-04-08] MEDS ORDERED: PANTOPRAZOLE SODIUM 40 MG VIAL IVPUSH ONE (04:30)
[2018-04-08] MEDS: morphine CARPU-JECT 2 MG/1 ML DISP.SYRIN IVPUSH PRN ×2 (04:49→13:14)
--- NOTE | 2018-04-08 06:18 | CONS ---
DATE OF CONSULTATION: DATE OF DICTATION: 04/07/2018 The patient is a 42-year-old female admitted via the emergency room with a 1-day history of right lower quadrant pain. This was colicky in nature and commenced in the right lower quadrant and radiated to the right groin. The patient denies any previous episodes. She denies any vomiting. She did have nausea. She also had some frequency and she also had some suprapubic pain. She states that her urine bag was odorous. She does have history of bilateral ileal conduits. This was done 9 years earlier for endometriosis. She denies any history of bladder cancer. The history for the procedure is somewhat hazy. The patient also underwent an ovarian cystectomy in the past. She denies any allergies. She denies any diabetes or hypertension. She does have a history of anxiety and depression. In the emergency room, her temperature was 99.6, blood pressure 118/83, respirations 18, pulse 54. CBC revealed a white count of 6.1, hemoglobin 12.5, hematocrit 36, platelets 190. BUN 25, creatinine 2.1. CT scan of the abdomen and pelvis performed in the emergency room revealed the patient is status post an ileal conduit. She has mild to moderate bilateral hydroureteronephrosis, right greater than left. No obvious cause for the hydronephrosis. There also appeared to be right kidney stones. There was also an umbilical hernia containing small bowel loops, and there was a large right ovarian cyst which measured 6.7 x 4.8 x 5.7 cm. Her uterus was somewhat bulky in appearance and suspicious for a leiomyoma. Also found was a 6-mm stone in the right lower pole of the kidney. The patient's urinalysis revealed 3+ blood and positive nitrites. Urine culture from the bag is pending. Her vital signs remained stable. She was afebrile over the past several days. Her blood pressure ranged from 118 to 83. Physical exam reveals a well-developed female in no apparent distress. Her abdomen was soft. There was some right CVA tenderness. Her stoma appeared to be patent. The urine is No clots were seen. Pelvic is deferred. Extremities revealed full range of motion with no cyanosis, clubbing or edema. The patient is a nulligravida. Her LMP was 2 weeks ago. IMPRESSION: 1. Status post ileal conduit for a non-cancerous condition. 2. Bilateral hydroureteronephrosis, right more than left. 3. 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 RECOMMENDATIONS: A diuretic renal scan to rule out any obstructive elements. Would then recommend an ileoscopy with bilateral retrogrades, possible bilateral retrograde ureteral dilation with stents. Will follow with you. MAURICIO VELEZ M.D. [id number]
--- NOTE | 2018-04-08 09:38 | CON.CARD ---
Consult Consult Specialty:: cardilology Reason for Consultation:: chest pain - History of Present Illness Chief Complaint: Pt A&Ox3; intermittent abdominal and chest discomfort History of Present Illness: The patient is a 42 year old black female with a significant past medical history of anemia, ileal conduit, and kidney failure, who presents to the emergency department for evaluation of RLQ abdominal pain. The patient reports a 1 day history of RLQ pain. She describes the RLQ pain as sharp and constant in nature. She reports being admitted twice for similar symptoms in February. Pt also notes moderate gripping left-sided chest discomfort that started at rest and lasted all day yesterday. It was still present to a mild degree when this morning's EKG was taken. She has not had this discomfort before. She has a sedentary lifestyle. A stress treadmill test was done 01/2017 at [facility]: results... Denies shortness of breath, headache, and dizziness. Denies fever, chills, diarrhea, constipation, nausea, and vomiting. Denies dysuria, frequency, urgency, and hematuria. Allergies: NKDA Social history: Current everyday smoker. No reported alcohol consumption or drug use. Surgical history: Kidney stone. PCP: Dr. Mynor Castillo ([phone]) - History Source History Provided By: Patient, Medical Record Limitations to Obtaining History: No Limitations - Past Medical History Gastrointestinal: Yes: Other (ileal conduit) Renal/: Yes: Renal Inusuff (s/p urinary diversion , ileal conduit 8 yrs ago at [facility] . 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 ) - Alcohol/Substance Use Hx Alcohol Use: No - Smoking History Smoking history: Current every day smoker Have you smoked in the past 12 months: Yes Aproximately how many cigarettes per day: 3 - Social History Usual Living Arrangement: Alone ADL: Independent History of Recent Travel: No Home Medications - Allergies Allergies/Adverse Reactions: Allergies Allergy/AdvReac Type Severity Reaction Status Date / Time No Known Allergies Allergy Verified 04/06/18 19:32 - Home Medications Home Medications: Ambulatory Orders Cefuroxime Axetil [Ceftin -] 250 mg PO BID #14 tablet 03/11/18 Family Disease History - Family Disease History Family Disease History: CA: Mother (MGM CA Breast; of "respiratory and heart problems" in her 60s), Respiratory: Mother Review of Systems - Review of Systems Constitutional: reports: No Symptoms Eyes: reports: No Symptoms HENT: reports: No Symptoms Neck: reports: No Symptoms Cardiovascular: reports: Chest Pain Respiratory: reports: No Symptoms Gastrointestinal: reports: Abdominal Pain Genitourinary: reports: No Symptoms Breasts: reports: No Symptoms Reported Musculoskeletal: reports: No Symptoms Integumentary: reports: No Symptoms Neurological: reports: No Symptoms Endocrine: reports: No Symptoms Hematology/Lymphatic: reports: No Symptoms Psychiatric: reports: No Symptoms - Risk Factors Known Risk Factors: Yes: Age, Physical Inactivity, Race, Smoking Vital Signs: Vital Signs Temperature 98.5 F 04/08/18 06:22 Pulse Rate 81 04/08/18 06:22 Respiratory Rate 20 04/08/18 06:22 Blood Pressure 155/53 04/08/18 06:22 O2 Sat by Pulse Oximetry (%) 98 04/07/18 23:54 Eyes: Yes: WNL HENT: Yes: WNL Neck: Yes: WNL Respiratory: Yes: WNL Gastrointestinal: Yes: Soft, Other (iliostomy) Renal/: Yes: WNL Cardiovascular: Yes: WNL JVD: No Carotid Bruit: No PMI: Non-Displaced Heart Sounds: Yes: S1, S2, S4 Murmur: Yes: Systolic Murmur, Grade 1 Musculoskeletal: Yes: WNL Extremities: Yes: WNL Edema: No Peripheral Pulses WNL: Yes Integumentary: Yes: Tattoos (many large tattoos) Neurological: Yes: WNL Psychiatric: Yes: WNL - Other Data Labs, Other Data: CBC, BMP 04/07/18 06:00 04/07/18 06:00 Troponin, BNP 04/08/18 04:20 Troponin I < 0.02 Troponin, BNP 04/08/18 04:20 Troponin I < 0.02 Ejection Fraction %: LVEF > or = 40 % Imaging - Results Ultrasound: Report Reviewed (ECHO: normal LVEF; no significant valvular abnormalities) EKG: Image Reviewed (sinus bradycardia; ?old RI (noted before)) Problem List - Problems (1) Anxiety Code(s): F41.9 - ANXIETY DISORDER, UNSPECIFIED (2) Depression Code(s): F32.9 - MAJOR DEPRESSIVE DISORDER, SINGLE EPISODE, UNSPECIFIED (3) Renal insufficiency Code(s): N28.9 - DISORDER OF KIDNEY AND URETER, UNSPECIFIED (4) Urinary tract infection Assessment/Plan: On antibiotics per ID. Code(s): N39.0 - URINARY TRACT INFECTION, SITE NOT SPECIFIED Qualifiers: Urinary tract infection type: acute cystitis Hematuria presence: with hematuria Qualified Code(s): N30.01 - Acute cystitis with hematuria (5) Abdominal pain Code(s): R10.9 - UNSPECIFIED ABDOMINAL PAIN (6) Chest pain, atypical Assessment/Plan: 1st TNI < 0.02. F/u EKG (done while pt having chest pain). F/u results of stress treadmill test done 01/26/2017. Total cholesterol 158; LDL 80 mg/dL. ECHO: normal LVEF. Code(s): R07.89 - OTHER CHEST PAIN (7) CKD (chronic kidney disease) Code(s): N18.9 - CHRONIC KIDNEY DISEASE, UNSPECIFIED (8) Obesity Code(s): E66.9 - OBESITY, UNSPECIFIED (9) Ileal conduit stomal stenosis Assessment/Plan: placed for endometriosis several years ago. Code(s): T85.858A - STENOSIS DUE TO OTHER INTERNAL PROSTH DEV/GRFT, INIT (10) Smokes cigarettes Assessment/Plan: smoking for the past several years, "no more than 3 or 4 cigarettes daily, and sometimes none". (Her mother of "a respiratory problem" in her early 60s, and was a smoker. Code(s): F17.210 - NICOTINE DEPENDENCE, CIGARETTES, UNCOMPLICATED
[2018-04-08] MEDS ORDERED: cefTRIAXone SODIUM 1 GM VIAL ONE (09:49)
[2018-04-08] MEDS ORDERED: DEXTROSE 5%-WATER - 50 ML IVPB ONE (09:50)
[2018-04-08] MEDS: CEFTRIAXONE 1 GM in DEXTROSE 5%-WATER - 50 ML IVPB SCH (09:58)
[2018-04-08] MEDS: HEPARIN NA (PORCINE) 5,000 UNITS/ML 1ML VIAL SQ SCH ×2 (09:58→22:13)
--- NOTE | 2018-04-08 10:46 | PN ---
Progress Note, Physician History of Present Illness: patient stable no new issues still with moderate pain - Current Medication List Current Medications: Active Medications Heparin Sodium (Porcine) (Heparin -) 5,000 unit SQ BID [facility] Last Admin: 04/08/18 09:58 Dose: 5,000 unit Dextrose/Sodium Chloride (D5-1/2ns -) 1,000 mls @ 75 mls/hr IV ASDIR [facility] Last Admin: 04/08/18 02:30 Dose: Not Given Ceftriaxone Sodium 1 gm/ (Dextrose) 50 mls @ 100 mls/hr IVPB DAILY [facility] PRN Reason: Protocol Last Admin: 04/08/18 09:58 Dose: 100 mls/hr Ketorolac Tromethamine (Toradol Injection -) 30 mg IVPUSH Q6H PRN PRN Reason: PAIN LEVEL 5 - 7 Stop: 04/12/18 01:02 Last Admin: 04/08/18 01:24 Dose: 30 mg Morphine Sulfate (Morphine Injection -) 2 mg IVPUSH Q8H PRN PRN Reason: PAIN LEVEL 5 - 8 Last Admin: 04/08/18 04:49 Dose: 2 mg - Objective Vital Signs: Vital Signs Temperature 98.5 F 04/08/18 06:22 Pulse Rate 81 04/08/18 06:22 Respiratory Rate 20 04/08/18 06:22 Blood Pressure 155/53 04/08/18 06:22 O2 Sat by Pulse Oximetry (%) 98 04/07/18 23:54 Constitutional: Yes: No Distress, Calm, Obese Neck: Yes: Supple, Trachea Midline Cardiovascular: Yes: Regular Rate and Rhythm Respiratory: Yes: Regular, CTA Bilaterally Gastrointestinal: Yes: Normal Bowel Sounds, Soft, Other (urostomy in place) Musculoskeletal: Yes: WNL Extremities: Yes: WNL Neurological: Yes: Alert, Oriented Psychiatric: Yes: Alert, Oriented Labs: CBC, BMP 04/07/18 06:00 04/07/18 06:00 Assessment/Plan this patient with medical problems and persistent bilateral hydro and renal stones uti abd pain plan await for all identification of the bacteria continue cefriaxone
--- NOTE | 2018-04-08 18:10 | PN ---
Progress Note, Physician History of Present Illness: Pt complains of pleuritic chest pain since last night but denies any SOB/ palpitations - Current Medication List Current Medications: Active Medications Heparin Sodium (Porcine) (Heparin -) 5,000 unit SQ BID [facility] Last Admin: 04/08/18 09:58 Dose: 5,000 unit Dextrose/Sodium Chloride (D5-1/2ns -) 1,000 mls @ 75 mls/hr IV ASDIR [facility] Last Admin: 04/08/18 02:30 Dose: Not Given Ceftriaxone Sodium 1 gm/ (Dextrose) 50 mls @ 100 mls/hr IVPB DAILY [facility] PRN Reason: Protocol Last Admin: 04/08/18 09:58 Dose: 100 mls/hr Ketorolac Tromethamine (Toradol Injection -) 30 mg IVPUSH Q6H PRN PRN Reason: PAIN LEVEL 5 - 7 Stop: 04/12/18 01:02 Last Admin: 04/08/18 01:24 Dose: 30 mg - Objective Vital Signs: Vital Signs Temperature 98.3 F 04/08/18 16:15 Pulse Rate 55 L 04/08/18 16:15 Respiratory Rate 20 04/08/18 16:15 Blood Pressure 133/84 04/08/18 16:15 O2 Sat by Pulse Oximetry (%) 98 04/08/18 09:00 Constitutional: Yes: Well Nourished Neck: Yes: WNL, Supple Cardiovascular: Yes: WNL, Regular Rate and Rhythm Respiratory: Yes: WNL, Regular, CTA Bilaterally Gastrointestinal: Yes: Normal Bowel Sounds, Soft, Abdomen, Obese, Other ((+) RLQ urostomy bag) Labs: CBC, BMP 04/07/18 06:00 04/07/18 06:00 Problem List - Problems (1) RLQ abdominal pain Assessment/Plan: ?Due to UTI Urine culture (+) for lactose fermenting neg bacilli Cont IV antibiotics/IVF Follow cultuers Pt does have rt kidney stone(nonobstructing) Renal scan to be done Cont pain meds Code(s): R10.31 - RIGHT LOWER QUADRANT PAIN (2) Chest pain Assessment/Plan: Pleuritic in nature ?Costrochondritis Pt is on toradol Cardio consult Code(s): R07.9 - CHEST PAIN, UNSPECIFIED (3) Renal insufficiency Assessment/Plan: Acute on chronic renal failure Cont IVF Cont to monitor Renal scan Code(s): N28.9 - DISORDER OF KIDNEY AND URETER, UNSPECIFIED (4) Anemia Assessment/Plan: Multifactorial Monitor H/H Code(s): D64.9 - ANEMIA, UNSPECIFIED (5) Anxiety Code(s): F41.9 - ANXIETY DISORDER, UNSPECIFIED (6) Depression Code(s): F32.9 - MAJOR DEPRESSIVE DISORDER, SINGLE EPISODE, UNSPECIFIED (7) History of nephrolithiasis Code(s): Z87.442 - PERSONAL HISTORY OF URINARY CALCULI (9) Smoking Code(s): F17.200 - NICOTINE DEPENDENCE, UNSPECIFIED, UNCOMPLICATED
[2018-04-09] MEDS: KETOROLAC TROMETHAMINE 30 MG/1 ML VIAL IVPUSH PRN ×2 (00:03→12:12)
[2018-04-09] MEDS: DEXTROSE 5%-0.45% SALINE 1,000 ML IV SCH ×2 (00:04→03:49)
[2018-04-09] MEDS ORDERED: ZOLPIDEM TARTRATE 5 MG TABLET PO ONE (01:30)
[2018-04-09 07:42] LABS: BASO % 0.6 % (0-2.0); EOS % 7.6 % (0-4.5); HEMATOCRIT 40.5 % (32.4-45.2); HEMOGLOBIN 13.7 GM/dL (10.7-15.3); LYMPH % 24.7 % (8-40); MCH 29.8 pg (25.7-33.7); MCHC 33.7 g/dl (32.0-36.0); MEAN CELL VOLUME 88.4 fl (80-96); MEAN PLT VOLUME 9.9 fl (7.5-11.1); MONO % 6.6 % (3.8-10.2); NEUT % 60.5 % (42.8-82.8); PLATELET COUNT 205 K/MM3 (134-434); RBC 4.58 M/mm3 (3.60-5.2); RDW 14.6 % (11.6-15.6); WHITE BLOOD COUNT 7.3 K/mm3 (4.0-10.0)
[2018-04-09 08:14] LABS: CHLORIDE 113 mmol/L (98-107); POTASSIUM 4.3 mmol/L (3.5-5.1); SODIUM 141 mmol/L (136-145)
[2018-04-09 08:27] LABS: ALBUMIN 2.9 g/dl (3.4-5.0); ALK PHOS 65 U/L (45-117); ANION GAP 6 (8-16); BILIRUBIN,TOTAL 0.4 mg/dL (0.2-1.0); BLOOD UREA NITROGEN 18 mg/dL (7-18); CALCIUM 8.6 mg/dL (8.5-10.1); CO2 22 mmol/L (21-32); CREATININE 1.8 mg/dL (0.55-1.02); GLUCOSE,RANDOM 79 mg/dL (74-106); SGOT/AST 16 U/L (15-37); SGPT/ALT 16 U/L (12-78); TOT PROT 6.4 g/dl (6.4-8.2)
--- NOTE | 2018-04-09 09:29 | PN ---
Progress Note, Physician Chief Complaint: no further CP She described it as positional ECG unchanged - Current Medication List Current Medications: Active Medications Heparin Sodium (Porcine) (Heparin -) 5,000 unit SQ BID [facility] Last Admin: 04/08/18 22:13 Dose: 5,000 unit Dextrose/Sodium Chloride (D5-1/2ns -) 1,000 mls @ 75 mls/hr IV ASDIR [facility] Last Admin: 04/09/18 03:49 Dose: Not Given Ceftriaxone Sodium 1 gm/ (Dextrose) 50 mls @ 100 mls/hr IVPB DAILY [facility] PRN Reason: Protocol Last Admin: 04/08/18 09:58 Dose: 100 mls/hr Ketorolac Tromethamine (Toradol Injection -) 30 mg IVPUSH Q6H PRN PRN Reason: PAIN LEVEL 5 - 7 Stop: 04/12/18 01:02 Last Admin: 04/09/18 00:03 Dose: 30 mg - Objective Vital Signs: Vital Signs Temperature 98.3 F 04/08/18 16:15 Pulse Rate 55 L 04/08/18 16:15 Respiratory Rate 20 04/08/18 21:00 Blood Pressure 133/84 04/08/18 16:15 O2 Sat by Pulse Oximetry (%) 98 04/08/18 21:00 Selected Entries 04/08/18 04/08/18 04/08/18 06:22 09:00 14:27 Temperature 98.5 F 98 F 98.2 F Pulse Rate 81 48 L 62 Blood Pressure 155/53 120/48 128/91 O2 Sat by Pulse 98 Oximetry (%) 04/08/18 04/08/18 16:15 21:00 Temperature 98.3 F Pulse Rate 55 L Blood Pressure 133/84 O2 Sat by Pulse 98 Oximetry (%) Laboratory Tests 04/08/18 04/09/18 04/09/18 04:20 06:15 07:02 WBC 7.3 Hgb 13.7 Plt Count 205 Sodium 141 Potassium 4.3 BUN 18 Creatinine 1.8 H Creatine Kinase 126 Troponin I < 0.02 Constitutional: Yes: No Distress, Calm Cardiovascular: Yes: Regular Rate and Rhythm Respiratory: Yes: CTA Bilaterally, Other (no wheezing) Gastrointestinal: Yes: Soft Edema: No Peripheral Pulses WNL: Yes Neurological: Yes: Alert, Oriented ...Motor Strength: WNL Labs: CBC, BMP 04/09/18 07:02 04/09/18 06:15 - ....Imaging EKG: Image Reviewed Assessment/Plan Problem List - Problems (1) Anxiety Code(s): F41.9 - ANXIETY DISORDER, UNSPECIFIED (2) Depression Code(s): F32.9 - MAJOR DEPRESSIVE DISORDER, SINGLE EPISODE, UNSPECIFIED (3) Renal insufficiency Code(s): N28.9 - DISORDER OF KIDNEY AND URETER, UNSPECIFIED (4) Urinary tract infection Assessment/Plan: On antibiotics per ID. Code(s): N39.0 - URINARY TRACT INFECTION, SITE NOT SPECIFIED Qualifiers: Urinary tract infection type: acute cystitis Hematuria presence: with hematuria Qualified Code(s): N30.01 - Acute cystitis with hematuria (5) Abdominal pain Code(s): R10.9 - UNSPECIFIED ABDOMINAL PAIN (6) Chest pain, atypical Assessment/Plan: 1st TNI < 0.02, f/u second set Repeat echo today Code(s): R07.89 - OTHER CHEST PAIN (7) CKD (chronic kidney disease) Code(s): N18.9 - CHRONIC KIDNEY DISEASE, UNSPECIFIED (8) Obesity Code(s): E66.9 - OBESITY, UNSPECIFIED (9) Ileal conduit stomal stenosis Assessment/Plan: placed for endometriosis several years ago. Code(s): T85.858A - STENOSIS DUE TO OTHER INTERNAL PROSTH DEV/GRFT, INIT (10) Smokes cigarettes Assessment/Plan: smoking for the past several years, "no more than 3 or 4 cigarettes daily, and sometimes none". (Her mother of "a respiratory problem" in her early 60s, and was a smoker. Code(s): F17.210 - NICOTINE DEPENDENCE, CIGARETTES, UNCOMPLICATED
[2018-04-09] MEDS ORDERED: cefTRIAXone SODIUM 1 GM VIAL ONE (12:04)
[2018-04-09] MEDS ORDERED: DEXTROSE 5%-WATER - 50 ML IVPB ONE (12:04)
[2018-04-09] MEDS: CEFTRIAXONE 1 GM in DEXTROSE 5%-WATER - 50 ML IVPB SCH (12:12)
[2018-04-09] MEDS: HEPARIN NA (PORCINE) 5,000 UNITS/ML 1ML VIAL SQ SCH ×2 (12:12→23:15)
--- NOTE | 2018-04-09 14:02 | PN ---
Progress Note, Physician History of Present Illness: stable doing well patient got a nuclear scan - Current Medication List Current Medications: Active Medications Heparin Sodium (Porcine) (Heparin -) 5,000 unit SQ BID [facility] Last Admin: 04/09/18 12:12 Dose: 5,000 unit Dextrose/Sodium Chloride (D5-1/2ns -) 1,000 mls @ 75 mls/hr IV ASDIR [facility] Last Admin: 04/09/18 03:49 Dose: Not Given Ceftriaxone Sodium 1 gm/ (Dextrose) 50 mls @ 100 mls/hr IVPB DAILY [facility] PRN Reason: Protocol Last Admin: 04/09/18 12:12 Dose: 100 mls/hr Ketorolac Tromethamine (Toradol Injection -) 30 mg IVPUSH Q6H PRN PRN Reason: PAIN LEVEL 5 - 7 Stop: 04/12/18 01:02 Last Admin: 04/09/18 12:12 Dose: 30 mg - Objective Vital Signs: Vital Signs Temperature 98.3 F 04/08/18 16:15 Pulse Rate 55 L 04/08/18 16:15 Respiratory Rate 20 04/08/18 21:00 Blood Pressure 133/84 04/08/18 16:15 O2 Sat by Pulse Oximetry (%) 98 04/08/18 21:00 Constitutional: Yes: No Distress, Calm Cardiovascular: Yes: Regular Rate and Rhythm Respiratory: Yes: Regular, CTA Bilaterally Gastrointestinal: Yes: Normal Bowel Sounds, Soft Musculoskeletal: Yes: WNL Extremities: Yes: WNL Neurological: Yes: Alert, Oriented Psychiatric: Yes: Alert, Oriented Labs: CBC, BMP 04/09/18 07:02 04/09/18 06:15 Assessment/Plan this patient with medical problems and persistent bilateral hydro and renal stones uti abd pain plan for ureteral stent placement contineu abx rest as per the team
--- NOTE | 2018-04-09 22:35 | PN ---
Progress Note, Physician History of Present Illness: Pt states that pleuritic chest pain has resolved However pt still having RLQ abdominal pain - Current Medication List Current Medications: Active Medications Heparin Sodium (Porcine) (Heparin -) 5,000 unit SQ BID [facility] Last Admin: 04/09/18 12:12 Dose: 5,000 unit Dextrose/Sodium Chloride (D5-1/2ns -) 1,000 mls @ 75 mls/hr IV ASDIR [facility] Last Admin: 04/09/18 03:49 Dose: Not Given Ceftriaxone Sodium 1 gm/ (Dextrose) 50 mls @ 100 mls/hr IVPB DAILY [facility] PRN Reason: Protocol Last Admin: 04/09/18 12:12 Dose: 100 mls/hr Ketorolac Tromethamine (Toradol Injection -) 30 mg IVPUSH Q6H PRN PRN Reason: PAIN LEVEL 5 - 7 Stop: 04/12/18 01:02 Last Admin: 04/09/18 12:12 Dose: 30 mg - Objective Vital Signs: Vital Signs Temperature 97.7 F 04/09/18 16:15 Pulse Rate 63 04/09/18 16:15 Respiratory Rate 20 04/09/18 16:15 Blood Pressure 131/84 04/09/18 16:15 O2 Sat by Pulse Oximetry (%) 98 04/08/18 21:00 Neck: Yes: WNL, Supple Cardiovascular: Yes: WNL, Regular Rate and Rhythm Respiratory: Yes: WNL, Regular, CTA Bilaterally Gastrointestinal: Yes: WNL, Normal Bowel Sounds, Soft, Other ((+) urostomy RLQ) Labs: CBC, BMP 04/09/18 07:02 04/09/18 06:15 Problem List - Problems (1) RLQ abdominal pain Assessment/Plan: Due to UTI Urine culture (+) Klebsiella Cont IV ceftriaxone/IVF Follow cultuers Pt does have rt kidney stone(nonobstructing) Renal scan showed Lt obstruction and on rt stasis vs reflux Change pain meds to morphine Code(s): R10.31 - RIGHT LOWER QUADRANT PAIN (2) Chest pain Code(s): R07.9 - CHEST PAIN, UNSPECIFIED (3) Renal insufficiency Assessment/Plan: Acute on chronic renal failure Cont IVF Cont to monitor Renal scan Code(s): N28.9 - DISORDER OF KIDNEY AND URETER, UNSPECIFIED (4) Anemia Assessment/Plan: Multifactorial Monitor H/H Code(s): D64.9 - ANEMIA, UNSPECIFIED (5) Anxiety Code(s): F41.9 - ANXIETY DISORDER, UNSPECIFIED (6) Depression Code(s): F32.9 - MAJOR DEPRESSIVE DISORDER, SINGLE EPISODE, UNSPECIFIED (7) History of nephrolithiasis Code(s): Z87.442 - PERSONAL HISTORY OF URINARY CALCULI (9) Smoking Code(s): F17.200 - NICOTINE DEPENDENCE, UNSPECIFIED, UNCOMPLICATED
[2018-04-09] MEDS: morphine SULFATE 4 MG/ML VIAL IVPUSH PRN (23:17)
--- NOTE | 2018-04-09 23:37 | EKG ---
Test Reason : Blood Pressure : / mmHG Vent. Rate : 052 BPM Atrial Rate : 052 BPM P-R Int : 162 ms QRS Dur : 084 ms QT Int : 462 ms P-R-T Axes : 023 014 045 degrees QTc Int : 429 ms SINUS BRADYCARDIA WITH SINUS ARRHYTHMIA LOW VOLTAGE QRS CANNOT RULE OUT ANTEROSEPTAL INFARCT (CITED ON OR BEFORE 08-APR-2018) ABNORMAL ECG WHEN COMPARED WITH ECG OF 08-APR-2018 04:27, NO SIGNIFICANT CHANGE WAS FOUND Confirmed by JULIET MULLINS MD ([id number]) on 04/09/2018 11:37:14 PM Referred By: LUIS FERNANDO BARON DR Confirmed By:JULIET MULLINS MD
--- NOTE | 2018-04-10 00:24 | EKG ---
Test Reason : Blood Pressure : / mmHG Vent. Rate : 047 BPM Atrial Rate : 047 BPM P-R Int : 154 ms QRS Dur : 078 ms QT Int : 480 ms P-R-T Axes : 028 036 056 degrees QTc Int : 424 ms SINUS BRADYCARDIA WITH SINUS ARRHYTHMIA LOW VOLTAGE QRS SEPTAL INFARCT , AGE UNDETERMINED ABNORMAL ECG WHEN COMPARED WITH ECG OF 06-APR-2018 23:15, SEPTAL INFARCT IS NOW PRESENT Confirmed by HARPREET WOODS, JULIET ([id number]) on 04/10/2018 12:24:34 AM Referred By: Confirmed By:JULIET MULLINS MD
--- NOTE | 2018-04-10 00:39 | EKG ---
Test Reason : Blood Pressure : / mmHG Vent. Rate : 051 BPM Atrial Rate : 051 BPM P-R Int : 162 ms QRS Dur : 082 ms QT Int : 446 ms P-R-T Axes : 046 037 051 degrees QTc Int : 411 ms SINUS BRADYCARDIA WITH SINUS ARRHYTHMIA LOW VOLTAGE QRS BORDERLINE ECG WHEN COMPARED WITH ECG OF 16-FEB-2018 12:18, NO SIGNIFICANT CHANGE WAS FOUND Confirmed by JULIET MULLINS MD ([id number]) on 04/10/2018 12:39:26 AM Referred By: Confirmed By:JULIET MULLINS MD
[2018-04-10] MEDS: morphine SULFATE 4 MG/ML VIAL IVPUSH PRN (04:22)
[2018-04-10] MEDS: DEXTROSE 5%-0.45% SALINE 1,000 ML IV SCH (04:23)
[2018-04-10] MEDS ORDERED: cefTRIAXone SODIUM 1 GM VIAL ONE (09:18)
[2018-04-10] MEDS ORDERED: DEXTROSE 5%-WATER - 50 ML IVPB ONE (09:18)
[2018-04-10 09:22] LABS: HEMATOCRIT 41.5 % (32.4-45.2); MCH 29.8 pg (25.7-33.7); MCHC 33.8 g/dl (32.0-36.0); MEAN CELL VOLUME 88.2 fl (80-96); PLATELET COUNT 204 K/MM3 (134-434); RDW 14.9 % (11.6-15.6); WHITE BLOOD COUNT 6.9 K/mm3 (4.0-10.0)
[2018-04-10 09:23] LABS: BASO % 0.6 % (0-2.0); LYMPH % 25.8 % (8-40); MEAN PLT VOLUME 9.6 fl (7.5-11.1); MONO % 6.6 % (3.8-10.2)
--- NOTE | 2018-04-10 09:27 | PN ---
Progress Note, Physician Chief Complaint: just returned from Echo No further CP x 48 hours History of Present Illness: CPK and TnI negative - Current Medication List Current Medications: Active Medications Heparin Sodium (Porcine) (Heparin -) 5,000 unit SQ BID [facility] Last Admin: 04/09/18 23:15 Dose: 5,000 unit Dextrose/Sodium Chloride (D5-1/2ns -) 1,000 mls @ 75 mls/hr IV ASDIR [facility] Last Admin: 04/10/18 04:23 Dose: Not Given Ceftriaxone Sodium 1 gm/ (Dextrose) 50 mls @ 100 mls/hr IVPB DAILY [facility] PRN Reason: Protocol Last Admin: 04/09/18 12:12 Dose: 100 mls/hr Morphine Sulfate (Morphine Sulfate) 2 mg IVPUSH Q6H PRN PRN Reason: pain 5-8 Last Admin: 04/10/18 04:22 Dose: 2 mg - Objective Vital Signs: Vital Signs Temperature 98.6 F 04/10/18 06:14 Pulse Rate 59 L 04/10/18 06:14 Respiratory Rate 04/10/18 06:14 Blood Pressure 128/88 04/10/18 06:14 O2 Sat by Pulse Oximetry (%) 98 04/08/18 21:00 Constitutional: Yes: No Distress, Calm Eyes: Yes: Conjunctiva Clear Cardiovascular: Yes: Regular Rate and Rhythm Respiratory: Yes: CTA Bilaterally Gastrointestinal: Yes: Soft Edema: No Neurological: Yes: Alert, Oriented Labs: Laboratory Tests 04/08/18 04/09/18 04:20 09:30 Creatine Kinase 126 111 Troponin I < 0.02 < 0.02 Assessment/Plan Problem List - Problems (1) Anxiety Code(s): F41.9 - ANXIETY DISORDER, UNSPECIFIED (2) Depression Code(s): F32.9 - MAJOR DEPRESSIVE DISORDER, SINGLE EPISODE, UNSPECIFIED (3) Renal insufficiency Code(s): N28.9 - DISORDER OF KIDNEY AND URETER, UNSPECIFIED (4) Urinary tract infection Assessment/Plan: On antibiotics per ID. Code(s): N39.0 - URINARY TRACT INFECTION, SITE NOT SPECIFIED Qualifiers: Urinary tract infection type: acute cystitis Hematuria presence: with hematuria Qualified Code(s): N30.01 - Acute cystitis with hematuria (5) Abdominal pain Code(s): R10.9 - UNSPECIFIED ABDOMINAL PAIN (6) Chest pain, atypical Assessment/Plan: 1st TNI < 0.02, f/u second set Repeat echo pending to r/o pericardial disease. Clinically low suspicion for CAD or pulmonary embolism (no dyspnea/hypoxia or tachycardia) Code(s): R07.89 - OTHER CHEST PAIN (7) CKD (chronic kidney disease) Code(s): N18.9 - CHRONIC KIDNEY DISEASE, UNSPECIFIED (8) Obesity Code(s): E66.9 - OBESITY, UNSPECIFIED (9) Ileal conduit stomal stenosis Assessment/Plan: placed for endometriosis several years ago. Code(s): T85.858A - STENOSIS DUE TO OTHER INTERNAL PROSTH DEV/GRFT, INIT
[2018-04-10] MEDS: HEPARIN NA (PORCINE) 5,000 UNITS/ML 1ML VIAL SQ SCH ×2 (09:32→22:52)
[2018-04-10 09:33] LABS: ALBUMIN 3.1 g/dl (3.4-5.0); ANION GAP 8 (8-16); BLOOD UREA NITROGEN 18 mg/dL (7-18); CALCIUM 8.7 mg/dL (8.5-10.1); CHLORIDE 111 mmol/L (98-107); CO2 23 mmol/L (21-32); GLUCOSE,RANDOM 82 mg/dL (74-106); SODIUM 142 mmol/L (136-145)
[2018-04-10 09:36] LABS: ALK PHOS 70 U/L (45-117); BILIRUBIN,TOTAL 0.4 mg/dL (0.2-1.0); CREATININE 1.9 mg/dL (0.55-1.02); SGOT/AST 14 U/L (15-37); SGPT/ALT 15 U/L (12-78); TOT PROT 6.7 g/dl (6.4-8.2)
[2018-04-10] MEDS: CEFTRIAXONE 1 GM in DEXTROSE 5%-WATER - 50 ML IVPB SCH (10:21)
--- NOTE | 2018-04-10 13:35 | PN ---
Progress Note, Physician History of Present Illness: stable going for stent placement no complaints feeling better - Current Medication List Current Medications: Active Medications Heparin Sodium (Porcine) (Heparin -) 5,000 unit SQ BID [facility] Last Admin: 04/10/18 09:32 Dose: Not Given Dextrose/Sodium Chloride (D5-1/2ns -) 1,000 mls @ 75 mls/hr IV ASDIR [facility] Last Admin: 04/10/18 04:23 Dose: Not Given Ceftriaxone Sodium 1 gm/ (Dextrose) 50 mls @ 100 mls/hr IVPB DAILY [facility] PRN Reason: Protocol Last Admin: 04/10/18 10:21 Dose: 100 mls/hr Morphine Sulfate (Morphine Sulfate) 2 mg IVPUSH Q6H PRN PRN Reason: pain 5-8 Last Admin: 04/10/18 04:22 Dose: 2 mg - Objective Vital Signs: Vital Signs Temperature 98.2 F 04/10/18 10:00 Pulse Rate 71 04/10/18 10:00 Respiratory Rate 18 04/10/18 10:00 Blood Pressure 120/61 04/10/18 10:00 O2 Sat by Pulse Oximetry (%) 98 04/08/18 21:00 Constitutional: Yes: No Distress, Calm Cardiovascular: Yes: Regular Rate and Rhythm Respiratory: Yes: Regular, CTA Bilaterally Gastrointestinal: Yes: Normal Bowel Sounds, Soft Musculoskeletal: Yes: WNL Extremities: Yes: WNL Neurological: Yes: Alert, Oriented Psychiatric: Yes: Alert, Oriented Labs: CBC, BMP 04/10/18 08:35 04/10/18 08:35 Assessment/Plan this patient with medical problems and persistent bilateral hydro and renal stones uti abd pain for ureteral stent placement continue abx rest as per the team
--- NOTE | 2018-04-10 22:47 | PN ---
Progress Note, Physician - Current Medication List Current Medications: Active Medications Heparin Sodium (Porcine) (Heparin -) 5,000 unit SQ BID [facility] Last Admin: 04/10/18 09:32 Dose: Not Given Dextrose/Sodium Chloride (D5-1/2ns -) 1,000 mls @ 75 mls/hr IV ASDIR [facility] Last Admin: 04/10/18 04:23 Dose: Not Given Ceftriaxone Sodium 1 gm/ (Dextrose) 50 mls @ 100 mls/hr IVPB DAILY [facility] PRN Reason: Protocol Last Admin: 04/10/18 10:21 Dose: 100 mls/hr Morphine Sulfate (Morphine Sulfate) 2 mg IVPUSH Q6H PRN PRN Reason: pain 5-8 Last Admin: 04/10/18 04:22 Dose: 2 mg - Objective Vital Signs: Vital Signs Temperature 98.5 F 04/10/18 17:26 Pulse Rate 60 04/10/18 17:26 Respiratory Rate 20 04/10/18 17:26 Blood Pressure 140/76 04/10/18 17:26 O2 Sat by Pulse Oximetry (%) 98 04/08/18 21:00 Labs: CBC, BMP 04/10/18 08:35 04/10/18 08:35 Problem List - Problems (1) RLQ abdominal pain Code(s): R10.31 - RIGHT LOWER QUADRANT PAIN (2) Chest pain Code(s): R07.9 - CHEST PAIN, UNSPECIFIED (3) Renal insufficiency Code(s): N28.9 - DISORDER OF KIDNEY AND URETER, UNSPECIFIED (4) Anemia Code(s): D64.9 - ANEMIA, UNSPECIFIED (5) Anxiety Code(s): F41.9 - ANXIETY DISORDER, UNSPECIFIED (6) Depression Code(s): F32.9 - MAJOR DEPRESSIVE DISORDER, SINGLE EPISODE, UNSPECIFIED (7) History of nephrolithiasis Code(s): Z87.442 - PERSONAL HISTORY OF URINARY CALCULI (9) Smoking Code(s): F17.200 - NICOTINE DEPENDENCE, UNSPECIFIED, UNCOMPLICATED
[2018-04-11] MEDS: morphine SULFATE 4 MG/ML VIAL IVPUSH PRN ×3 (00:59→15:58)
[2018-04-11] MEDS: DEXTROSE 5%-0.45% SALINE 1,000 ML IV SCH (02:30)
--- NOTE | 2018-04-11 09:28 | PN ---
Progress Note, Physician Chief Complaint: Echo was normal - Current Medication List Current Medications: Active Medications Heparin Sodium (Porcine) (Heparin -) 5,000 unit SQ BID [facility] Last Admin: 04/10/18 22:52 Dose: 5,000 unit Dextrose/Sodium Chloride (D5-1/2ns -) 1,000 mls @ 75 mls/hr IV [facility] Last Admin: 04/11/18 02:30 Dose: Not Given Ceftriaxone Sodium 1 gm/ (Dextrose) 50 mls @ 100 mls/hr IVPB DAILY [facility]; Protocol Last Admin: 04/10/18 10:21 Dose: 100 mls/hr Morphine Sulfate (Morphine Sulfate) 2 mg IVPUSH Q6H PRN PRN Reason: pain 5-8 Last Admin: 04/11/18 06:48 Dose: 2 mg - Objective Vital Signs: Vital Signs Temperature 98.1 F 04/11/18 07:35 Pulse Rate 68 04/11/18 07:35 Respiratory Rate 20 04/11/18 07:35 Blood Pressure 130/92 04/11/18 07:35 O2 Sat by Pulse Oximetry (%) 98 04/08/18 21:00 Cardiovascular: Yes: Regular Rate and Rhythm Respiratory: Yes: CTA Bilaterally Gastrointestinal: Yes: Soft Edema: No Neurological: Yes: Alert, Oriented ...Motor Strength: WNL Labs: CBC, BMP 04/10/18 08:35 04/10/18 08:35 Laboratory Tests 04/08/18 04/09/18 04/10/18 04:20 09:30 08:35 WBC 6.9 Hct 41.5 Plt Count 204 Sodium Potassium BUN Creatinine AST ALT Alkaline Phosphatase Creatine Kinase 126 111 Troponin I < 0.02 < 0.02 04/10/18 08:35 WBC Hct Plt Count Sodium 142 Potassium 4.0 BUN 18 Creatinine 1.9 H AST 14 L ALT 15 Alkaline Phosphatase 70 Creatine Kinase Troponin I Assessment/Plan IMP: Atypical CP: negative enzymes, nl echo REC: For nuclear stress test for further CV risk stratification
[2018-04-11] MEDS ORDERED: cefTRIAXone SODIUM 1 GM VIAL ONE (10:04)
[2018-04-11] MEDS ORDERED: DEXTROSE 5%-WATER - 50 ML IVPB ONE (10:04)
[2018-04-11] MEDS: HEPARIN NA (PORCINE) 5,000 UNITS/ML 1ML VIAL SQ SCH ×2 (10:34→22:51)
[2018-04-11] MEDS: CEFTRIAXONE 1 GM in DEXTROSE 5%-WATER - 50 ML IVPB SCH (10:34)
--- NOTE | 2018-04-11 12:17 | PN ---
Progress Note, Physician History of Present Illness: stable doing well no issues had chest pain going for stress test before pyelogram - Current Medication List Current Medications: Active Medications Heparin Sodium (Porcine) (Heparin -) 5,000 unit SQ BID [facility] Last Admin: 04/11/18 10:34 Dose: Not Given Dextrose/Sodium Chloride (D5-1/2ns -) 1,000 mls @ 75 mls/hr IV ASDIR [facility] Last Admin: 04/11/18 02:30 Dose: Not Given Ceftriaxone Sodium 1 gm/ (Dextrose) 50 mls @ 100 mls/hr IVPB DAILY [facility]; Protocol Last Admin: 04/11/18 10:34 Dose: 100 mls/hr Morphine Sulfate (Morphine Sulfate) 2 mg IVPUSH Q6H PRN PRN Reason: pain 5-8 Last Admin: 04/11/18 06:48 Dose: 2 mg - Objective Vital Signs: Vital Signs Temperature 98.1 F 04/11/18 07:35 Pulse Rate 68 04/11/18 07:35 Respiratory Rate 20 04/11/18 07:35 Blood Pressure 130/92 04/11/18 07:35 O2 Sat by Pulse Oximetry (%) 98 04/08/18 21:00 Constitutional: Yes: No Distress, Calm, Obese Eyes: Yes: Conjunctiva Clear Cardiovascular: Yes: Regular Rate and Rhythm Respiratory: Yes: Regular, CTA Bilaterally Gastrointestinal: Yes: Normal Bowel Sounds, Soft, Other Musculoskeletal: Yes: WNL Extremities: Yes: WNL Neurological: Yes: Alert, Oriented Psychiatric: Yes: Alert, Oriented Labs: CBC, BMP 04/10/18 08:35 04/10/18 08:35 Assessment/Plan Problem List - Problems (1) RLQ abdominal pain Code(s): R10.31 - RIGHT LOWER QUADRANT PAIN (2) Chest pain Code(s): R07.9 - CHEST PAIN, UNSPECIFIED (3) Renal insufficiency Code(s): N28.9 - DISORDER OF KIDNEY AND URETER, UNSPECIFIED (4) Anemia Code(s): D64.9 - ANEMIA, UNSPECIFIED (5) Anxiety Code(s): F41.9 - ANXIETY DISORDER, UNSPECIFIED (6) Depression Code(s): F32.9 - MAJOR DEPRESSIVE DISORDER, SINGLE EPISODE, UNSPECIFIED (7) History of nephrolithiasis Code(s): Z87.442 - PERSONAL HISTORY OF URINARY CALCULI (9) Smoking Code(s): F17.200 - NICOTINE DEPENDENCE, UNSPECIFIED, UNCOMPLICATED plan once patient comes back from the procedure will switch to oral abx await for all the results rest as per the team
[2018-04-11] MEDS ORDERED: LIDOCAINE HCL/PF 2% SDV 5ML VIAL ONE (19:18)
[2018-04-11] MEDS ORDERED: SUCCINYLCHOLINE CHLORIDE 200 MG/10 ML VIAL ONE (19:18)
[2018-04-11] MEDS ORDERED: PROPOFOL 20 ML ONE (19:18)
[2018-04-11] MEDS ORDERED: ceFAZolin SODIUM 1 GM VIAL IVPB ONE (19:35)
--- NOTE | 2018-04-11 19:57 | OP ---
Operative Note - Note: Operative Date: 04/11/18 Pre-Operative Diagnosis: s/p ileal conduet h/o michael. hydronephrosis and a 7mm renal stone Operation: ileogram,ileoscopy and michael. retrograde peylograms Findings: no evedence of ureteroileal strictures no ileal lesions,rt. renal pelvic stone Implants: none Post-Operative Diagnosis: Same as Pre-op Surgeon: Rayne Castillo Anesthesia: General Specimens Removed: none Estimated Blood Loss (mls): 0 Drains & Tubes with Location: none Drains, Volume Out (mls): 0 Blood Volume Replaced (mls): 0 Operative Report Dictated: Yes
[2018-04-11] MEDS ORDERED: oxyCODONE HCL 5 MG TABLET PO PRN (20:03)
[2018-04-11] MEDS ORDERED: ONDANSETRON 4 MG/2 ML VIAL IVPUSH PRN (20:03)
[2018-04-11] MEDS ORDERED: PROMETHAZINE HCL 25 MG/1 ML VIAL IVPUSH PRN (20:03)
[2018-04-11] MEDS ORDERED: LACTATED RINGERS SOLUTION 1,000 ML IV SCH (20:15)
--- NOTE | 2018-04-11 20:33 | OP ---
DATE OF OPERATION: 04/11/2018 PREOPERATIVE DIAGNOSIS: Status post ileal conduits, bilateral hydronephrosis, right renal stone, rule out ureteroileal stricture. OPERATIVE PROCEDURE: Ileogram, ileoscopy, bilateral retrograde pyelograms. POSTOPERATIVE DIAGNOSIS: No evidence of stricture disease, right renal pelvic stone. ANESTHESIA: General. DESCRIPTION OF PROCEDURE: Under general anesthesia, patient is prepped and draped in the usual sterile manner. She is placed in the supine position. A 24 Persian Alcantara was inserted 2 cm in the ileostomy pouch, and the balloon inflated to 20 mL. Then approximately 50 mL of contrast was injected. This revealed an 8 cm ileal conduit and bilateral reflux grade 3. The Alcantara was then removed, and a cystoscopy was performed via the ileal conduit. The conduit revealed no lesions, no calculi were seen. Ureteral openings were visualized and then no evidence of stricture was found. The conduit was then drained, and the bag was replaced. The patient tolerated the procedure well. She returned to the recovery room in good condition. Dania [id number]
--- NOTE | 2018-04-11 21:15 | PN ---
Progress Note, Physician - Current Medication List Current Medications: Active Medications Fentanyl (Sublimaze Injection -) 50 mcg IVPUSH [id number] PRN PRN Reason: PAIN-PACU ORDER X 4 DOSES ONLY Stop: 04/12/18 03:00 Heparin Sodium (Porcine) (Heparin -) 5,000 unit SQ BID [facility] Last Admin: 04/11/18 10:34 Dose: Not Given Dextrose/Sodium Chloride (D5-1/2ns -) 1,000 mls @ 75 mls/hr IV [facility] Last Admin: 04/11/18 02:30 Dose: Not Given Ceftriaxone Sodium 1 gm/ (Dextrose) 50 mls @ 100 mls/hr IVPB DAILY [facility]; Protocol Last Admin: 04/11/18 10:34 Dose: 100 mls/hr Lactated Ringer's (Lactated Ringers Solution) 1,000 mls @ 75 mls/hr IV [facility]IR [facility] Morphine Sulfate (Morphine Sulfate) 2 mg IVPUSH Q6H PRN PRN Reason: pain 5-8 Last Admin: 04/11/18 15:58 Dose: 2 mg Ondansetron HCl (Zofran Injection) 4 mg IVPUSH Q6H PRN PRN Reason: NAUSEA AND/OR VOMITING Stop: 04/12/18 03:00 Oxycodone HCl (Roxicodone -) 10 mg PO Q4H PRN PRN Reason: PAIN LEVEL 6-10 Stop: 04/12/18 20:02 Promethazine HCl (Phenergan Injection -) 12.5 mg IVPUSH Q6H PRN PRN Reason: NAUSEA-FOR RESCUE AFTER 15 MIN Stop: 04/12/18 03:00 - Objective Vital Signs: Vital Signs Temperature 98.0 F 04/11/18 15:55 Pulse Rate 57 L 04/11/18 15:55 Respiratory Rate 19 04/11/18 15:55 Blood Pressure 113/64 04/11/18 15:55 O2 Sat by Pulse Oximetry (%) 98 04/08/18 21:00 Labs: CBC, BMP 04/10/18 08:35 04/10/18 08:35 Problem List - Problems (1) RLQ abdominal pain Code(s): R10.31 - RIGHT LOWER QUADRANT PAIN (2) Chest pain Code(s): R07.9 - CHEST PAIN, UNSPECIFIED (3) Renal insufficiency Code(s): N28.9 - DISORDER OF KIDNEY AND URETER, UNSPECIFIED (4) Anemia Code(s): D64.9 - ANEMIA, UNSPECIFIED (5) Anxiety Code(s): F41.9 - ANXIETY DISORDER, UNSPECIFIED (6) Depression Code(s): F32.9 - MAJOR DEPRESSIVE DISORDER, SINGLE EPISODE, UNSPECIFIED (7) History of nephrolithiasis Code(s): Z87.442 - PERSONAL HISTORY OF URINARY CALCULI (9) Smoking Code(s): F17.200 - NICOTINE DEPENDENCE, UNSPECIFIED, UNCOMPLICATED
[2018-04-12] MEDS: morphine SULFATE 4 MG/ML VIAL IVPUSH PRN ×3 (05:09→10:33)
[2018-04-12] MEDS: DEXTROSE 5%-0.45% SALINE 1,000 ML IV SCH (06:30)
[2018-04-12] MEDS ORDERED: DEXTROSE 5%-WATER - 50 ML IVPB ONE (10:27)
[2018-04-12] MEDS ORDERED: cefTRIAXone SODIUM 1 GM VIAL ONE (10:27)
[2018-04-12] MEDS: CEFTRIAXONE 1 GM in DEXTROSE 5%-WATER - 50 ML IVPB SCH (10:34)
[2018-04-12] MEDS: HEPARIN NA (PORCINE) 5,000 UNITS/ML 1ML VIAL SQ SCH (10:34)
--- NOTE | 2018-04-12 11:35 | PN ---
Progress Note, Physician History of Present Illness: patient stable no complaints procedure note noted from urology doing well - Current Medication List Current Medications: Active Medications Heparin Sodium (Porcine) (Heparin -) 5,000 unit SQ BID [facility] Last Admin: 04/12/18 10:34 Dose: 5,000 unit Dextrose/Sodium Chloride (D5-1/2ns -) 1,000 mls @ 75 mls/hr IV ASDIR [facility] Last Admin: 04/12/18 06:30 Dose: Not Given Ceftriaxone Sodium 1 gm/ (Dextrose) 50 mls @ 100 mls/hr IVPB DAILY [facility]; Protocol Last Admin: 04/12/18 10:34 Dose: 100 mls/hr Lactated Ringer's (Lactated Ringers Solution) 1,000 mls @ 75 mls/hr IV ASDIR [facility] Last Admin: 04/12/18 07:30 Dose: Not Given Morphine Sulfate (Morphine Sulfate) 2 mg IVPUSH Q6H PRN PRN Reason: pain 5-8 Last Admin: 04/12/18 10:33 Dose: 2 mg Oxycodone HCl (Roxicodone -) 10 mg PO Q4H PRN PRN Reason: PAIN LEVEL 6-10 Stop: 04/12/18 20:02 - Objective Vital Signs: Vital Signs Temperature 98 F 04/12/18 07:27 Pulse Rate 64 04/12/18 07:27 Respiratory Rate 20 04/12/18 07:27 Blood Pressure 144/92 04/12/18 07:27 O2 Sat by Pulse Oximetry (%) 95 04/11/18 21:45 Constitutional: Yes: No Distress, Calm, Obese Cardiovascular: Yes: Regular Rate and Rhythm Respiratory: Yes: Regular, CTA Bilaterally Gastrointestinal: Yes: Normal Bowel Sounds, Soft Musculoskeletal: Yes: WNL, Muscle Weakness Neurological: Yes: Alert, Oriented Psychiatric: Yes: Alert, Oriented Labs: CBC, BMP 04/10/18 08:35 04/10/18 08:35 Assessment/Plan Problem List - Problems (1) RLQ abdominal pain Code(s): R10.31 - RIGHT LOWER QUADRANT PAIN (2) Chest pain Code(s): R07.9 - CHEST PAIN, UNSPECIFIED (3) Renal insufficiency Code(s): N28.9 - DISORDER OF KIDNEY AND URETER, UNSPECIFIED (4) Anemia Code(s): D64.9 - ANEMIA, UNSPECIFIED (5) Anxiety Code(s): F41.9 - ANXIETY DISORDER, UNSPECIFIED (6) Depression Code(s): F32.9 - MAJOR DEPRESSIVE DISORDER, SINGLE EPISODE, UNSPECIFIED (7) History of nephrolithiasis Code(s): Z87.442 - PERSONAL HISTORY OF URINARY CALCULI (9) Smoking Code(s): F17.200 - NICOTINE DEPENDENCE, UNSPECIFIED, UNCOMPLICATED plan can switch to augmentin for another 5 days rest as per the primary team
--- NOTE | 2018-04-12 13:03 | PN ---
Progress Note, Physician Chief Complaint: s/p ileogram, cystoscopy, and ileoscopy under general anesthesia History of Present Illness: postop day one - Current Medication List Current Medications: Active Medications Heparin Sodium (Porcine) (Heparin -) 5,000 unit SQ BID [facility] Last Admin: 04/12/18 10:34 Dose: 5,000 unit Dextrose/Sodium Chloride (D5-1/2ns -) 1,000 mls @ 75 mls/hr IV ASDIR [facility] Last Admin: 04/12/18 06:30 Dose: Not Given Ceftriaxone Sodium 1 gm/ (Dextrose) 50 mls @ 100 mls/hr IVPB DAILY [facility]; Protocol Last Admin: 04/12/18 10:34 Dose: 100 mls/hr Lactated Ringer's (Lactated Ringers Solution) 1,000 mls @ 75 mls/hr IV ASDIR [facility] Last Admin: 04/12/18 07:30 Dose: Not Given Morphine Sulfate (Morphine Sulfate) 2 mg IVPUSH Q6H PRN PRN Reason: pain 5-8 Last Admin: 04/12/18 10:33 Dose: 2 mg Oxycodone HCl (Roxicodone -) 10 mg PO Q4H PRN PRN Reason: PAIN LEVEL 6-10 Stop: 04/12/18 20:02 - Objective Vital Signs: Vital Signs Temperature 98 F 04/12/18 07:27 Pulse Rate 64 04/12/18 07:27 Respiratory Rate 20 04/12/18 07:27 Blood Pressure 144/92 04/12/18 07:27 O2 Sat by Pulse Oximetry (%) 95 04/11/18 21:45 Constitutional: Yes: Well Nourished Cardiovascular: Yes: WNL Respiratory: Yes: WNL Gastrointestinal: Yes: WNL Labs: CBC, BMP 04/10/18 08:35 04/10/18 08:35 Assessment/Plan no complaints related to anesthesia. no nausea or vomiting, dept of anesthesia will sign off care at this time
[2018-04-12 14:44] VITALS: BP 112/73; PULSE 74; TEMP 97.6
--- NOTE | 2018-04-13 00:24 | DS ---
Physical Examination Vital Signs: Vital Signs Temperature 97.6 F 04/12/18 11:00 Pulse Rate 74 04/12/18 11:00 Respiratory Rate 18 04/12/18 11:00 Blood Pressure 112/73 04/12/18 11:00 O2 Sat by Pulse Oximetry (%) 95 04/12/18 09:00 Labs: CBC, BMP 04/10/18 08:35 04/10/18 08:35 Discharge Summary Reason For Visit: URINARY TRACT INFECTION,HYDRONEPHROSIS Condition: Good - Instructions Diet, Activity, Other Instructions: Regular diet See your urologist in [address] Mynor Castillo in 1 week Referrals: Mynor Castillo MD [Primary Care Provider] - Disposition: HOME - Home Medications Comprehensive Discharge Medication List: Ambulatory Orders Cefuroxime Axetil [Ceftin -] 250 mg PO BID #14 tablet 03/11/18 Amoxicillin/Potassium Clav [Augmentin 875-125 Tablet] 1 each PO BID #10 tablet 04/12/18
== END 2018-04-12 14:57 | disposition home or self-care (01) | DRG 463 ==
LOC: JER 19:25 → JERBED 22:31 → J8W 04-07 00:31
PROVIDERS: ADMIT Internal Medicine; ATTEND Internal Medicine
PROC: 0DJD8ZZ Inspection of Lower Intestinal Tract, Via Natural or Artificial Opening Endoscopic (ICD-10-PCS; principal; 2018-04-06)
PROC: BT14ZZZ Fluoroscopy of Kidneys, Ureters and Bladder (ICD-10-PCS; 2018-04-06)
DX: N39.0 Urinary tract infection, site not specified (principal); N13.2 Hydronephrosis with renal and ureteral calculous obstruction; Z93.59 Other cystostomy status; N18.9 Chronic kidney disease, unspecified; F41.9 Anxiety disorder, unspecified; D64.9 Anemia, unspecified; F32.9 Major depressive disorder, single episode, unspecified; F17.210 Nicotine dependence, cigarettes, uncomplicated; R07.89 Other chest pain; E66.9 Obesity, unspecified; Z68.38 Body mass index [BMI] 38.0-38.9, adult; R00.1 Bradycardia, unspecified; M54.5 Low back pain
CPT/HCPCS: 36415; 71045-TC-FY; 74018-TC-FY; 74176; 76000-TC-FY; 78452-TC; 78708-TC; 80053; 81003; 81015; 82550; 84484; 84703; 85025; 87086; 87186; 93005; 93010; 93017; 93306-TC; 94760; 99282-25; A9502; A9562; J1644; J7030

== ENCOUNTER 2018-05-11 00:56 | Inpatient (IN) | payer OTHER ==
[2018-05-11 01:16] VITALS: BMI 35.9
[2018-05-11] MEDS ORDERED: AZITHROMYCIN IVPB 500 MG in DEXTROSE 5%-WATER - 250 ML IVPB ONE (01:32)
[2018-05-11] MEDS ORDERED: SODIUM CHLORIDE 1,000 ML IV STA (01:33)
[2018-05-11] MEDS ORDERED: morphine CARPU-JECT 10 MG/1 ML DISP.SYRIN IVPUSH ONE (01:33)
[2018-05-11] MEDS ORDERED: METOCLOPRAMIDE HCL INJECTION 10 MG/2 ML VIAL IVPUSH ONE ×2 (01:34→03:44)
--- NOTE | 2018-05-11 01:35 | PDOC ---
History of Present Illness - General History Source: Patient <JohnRolly miller - Last Filed: 05/11/18 04:37> - General History Source: Patient, Old Records Exam Limitations: No Limitations - History of Present Illness Initial Comments: 05/11/18 01:40 The patient is a 42 year old female with a past medical history of renal Insufficiency (s/p urinary diversion, ileal conduit 8 yrs ago at [facility]), anemia ( chronic, iron deficiency anemia ), anxiety, and depression, who presents to the Emergency Department with abdominal pain for one day. The patient is status post a urostomy at [facility]. Yesterday, the patient was lying down and moved awkwardly triggering 10/10 severity pain in her abdomen that is worsened by movement. She reports that the pink thing seemed to pop out more. She endorses productive cough and wheezing secondary to a recent upper respiratory infection that she has had. She denies vomiting and fever. <Rony Mata - Last Filed: 05/11/18 06:16> - General Chief Complaint: Pain, Acute Stated Complaint: STOMACH PAIN Time Seen by Provider: 05/11/18 01:17 Past History - Past Medical History Anemia: Yes COPD: No Disorders: Yes (Ileal Conduit, H/O KIDNEY STONES) Kidney Stones: Yes (kidney failure) - Reproductive History (#): 0 Para: 0 - Immunization History Immunization Up to Date: Yes - Suicide/Smoking/Psychosocial Hx Smoking Status: No Smoking History: Current every day smoker Have you smoked in the past 12 months: No Number of Cigarettes Smoked Daily: 3 Cigars Per Day: 0 Information on smoking cessation initiated: No 'Breaking Loose' booklet given: 02/15/18 Hx Alcohol Use: No Drug/Substance Use Hx: No Substance Use Type: Marijuana Hx Substance Use Treatment: No <Rolly Hermosillo - Last Filed: 05/11/18 04:37> <Rony Mata - Last Filed: 05/11/18 06:16> - Past Medical History Allergies/Adverse Reactions: Allergies Allergy/AdvReac Type Severity Reaction Status Date / Time No Known Allergies Allergy Verified 04/06/18 19:32 Home Medications: Ambulatory Orders Cefuroxime Axetil [Ceftin -] 250 mg PO BID #14 tablet 03/11/18 Amoxicillin/Potassium Clav [Augmentin 875-125 Tablet] 1 each PO BID #10 tablet 04/12/18 Review of Systems - Review of Systems Able to Perform ROS?: Yes Comments:: 05/11/18 01:40 CONSTITUTIONAL: Absent: fever, no chills, no fatigue EYES: Absent: visual changes ENT: Absent: ear pain, no sore throat CARDIOVASCULAR: Absent: chest pain, no palpitations RESPIRATORY: (+) Cough, wheezing Absent: no SOB GI: (+) Abdominal pain Absent: no nausea, no vomiting, no constipation, no diarrhea GENITOURINARY: Absent: dysuria, no frequency, no hematuria MUSCULOSKELETAL: Absent: back pain, no arthralgia, no myalgia SKIN: Absent: rash <Rony Mata - Last Filed: 05/11/18 06:16> *Physical Exam - Vital Signs Last Vital Signs Temp Pulse Resp BP Pulse Ox 99.6 F 80 18 134/88 97 05/11/18 01:12 05/11/18 01:12 05/11/18 01:12 05/11/18 01:12 05/11/18 01:12 <Rolly Hermosillo - Last Filed: 05/11/18 04:37> - Vital Signs Last Vital Signs Temp Pulse Resp BP Pulse Ox 99.6 F 80 18 134/88 97 05/11/18 01:12 05/11/18 01:12 05/11/18 01:12 05/11/18 01:12 05/11/18 01:12 - Physical Exam Comments: 05/11/18 01:40 GENERAL: (+) Well-appearing, well-nourished. Moderate distress. HEENT: Normocephalic, atraumatic. PERRL, EOM intact. CARDIOVASCULAR: Normal S1, S2. Regular rate and rhythm. PULMONARY: (+) Clear to auscultation bilaterally. Wheezing ABDOMEN: Soft, non-distended, Moderate tenderness surrounding site of urostomy, it appears firm, almost like an abdominal hernia defect which was difficult to reduce. EXTREMITIES: Normal ROM in all four extremities. No gross deformities. SKIN: Warm, dry. No rash NEUROLOGICAL: No focal neurological deficits. <Rony Mata - Last Filed: 05/11/18 06:16> Heart Score/ECG Review - ECG Impressions Comment:: 05/11/18 06:16 Normal sinus rhythm with sinus arrhythmia Septal infarct age undetermined Abnormal ECG <Rony Mata - Last Filed: 05/11/18 06:16> ED Treatment Course - LABORATORY CBC & Chemistry Diagram: 05/11/18 01:54 05/11/18 01:54 <Rolly Hermosillo - Last Filed: 05/11/18 04:37> - LABORATORY CBC & Chemistry Diagram: 05/11/18 01:54 05/11/18 01:54 <Rony Mata - Last Filed: 05/11/18 06:16> Medical Decision Making - Medical Decision Making 05/11/18 04:37 Dr. Hermosillo: The scribe's documentation has been prepared under my direction and personally reviewed by me in its entirery. I confirm that the note above accurately reflects all work, treatment, procedures, and medical decision making performed by me. Pt still having pain. Pt found to have an abdominal hernia. Pt also has an upper respiratory infection. Given Azithromycin. [facility]. <Rolly Hermosillo - Last Filed: 05/11/18 04:37> *DC/Admit/Observation/Transfer - Discharge Dispostion Decision to Admit order: Yes <Rolly Hermosillo - Last Filed: 05/11/18 04:37> - Attestations Scribe Attestion: 05/11/18 01:41 Documentation prepared by Rony Mata, acting as medical dosimetrist for Rolly Hermosillo DO. <Rony Mata - Last Filed: 05/11/18 06:16> Diagnosis at time of Disposition: Abdominal hernia, Upper respiratory infection Abdominal pain Qualifiers: Abdominal location: right lower quadrant Qualified Code(s): R10.31 - Right lower quadrant pain - Discharge Dispostion Condition at time of disposition: Stable
[2018-05-11] MEDS ORDERED: METOCLOPRAMIDE HCL INJECTION 10 MG/2 ML VIAL ONE ×2 (01:48→03:46)
[2018-05-11] MEDS ORDERED: morphine SULFATE 4 MG/ML VIAL ONE ×2 (01:49→05:09)
[2018-05-11] MEDS ORDERED: AZITHROMYCIN IVPB 250 ML IVPB ONE (01:49)
[2018-05-11 02:10] LABS: BASO % 0.4 % (0-2.0); EOS % 7.2 % (0-4.5); HEMATOCRIT 41.1 % (32.4-45.2); LYMPH % 14.5 % (8-40); MCH 29.9 pg (25.7-33.7); MEAN CELL VOLUME 87.9 fl (80-96); MEAN PLT VOLUME 9.3 fl (7.5-11.1); MONO % 6.8 % (3.8-10.2); NEUT % 71.1 % (42.8-82.8); PLATELET COUNT 214 K/MM3 (134-434); RBC 4.68 M/mm3 (3.60-5.2); RDW 14.9 % (11.6-15.6); WHITE BLOOD COUNT 8.8 K/mm3 (4.0-10.0)
[2018-05-11 02:28] LABS: INR 0.96 (0.82-1.09); PROTHROMBIN TIME (PATIENT) 10.8 SEC (9.7-13.0)
[2018-05-11 02:39] LABS: ALBUMIN 3.4 g/dl (3.4-5.0); ANION GAP 8 (8-16); BILIRUBIN,TOTAL 0.4 mg/dL (0.2-1.0); BLOOD UREA NITROGEN 22 mg/dL (7-18); CALCIUM 8.8 mg/dL (8.5-10.1); CHLORIDE 107 mmol/L (98-107); CO2 23 mmol/L (21-32); CREATININE 1.9 mg/dL (0.55-1.02); GLUCOSE,RANDOM 97 mg/dL (74-106); SGPT/ALT 25 U/L (12-78); SODIUM 138 mmol/L (136-145); TOT PROT 7.5 g/dl (6.4-8.2)
[2018-05-11 02:40] LABS: ALK PHOS 80 U/L (45-117)
[2018-05-11 02:41] LABS: MAGNESIUM 2.1 mg/dL (1.8-2.4); POTASSIUM 4.7 mmol/L (3.5-5.1); SGOT/AST 26 U/L (15-37)
[2018-05-11] MEDS ORDERED: ALBUTEROL SO4 2.5/IPRATROPIUM 0.5 INH SOL 3 ML VIAL.NEB. NEB STA (03:31)
[2018-05-11] MEDS ORDERED: KETOROLAC TROMETHAMINE 30 MG/1 ML VIAL IVPUSH ONE (03:31)
[2018-05-11] MEDS ORDERED: KETOROLAC TROMETHAMINE 30 MG/1 ML VIAL ONE (03:35)
[2018-05-11] MEDS ORDERED: ALBUTEROL SO4 2.5/IPRATROPIUM 0.5 INH SOL 3 ML VIAL.NEB. NEB ONE (03:35)
[2018-05-11] MEDS ORDERED: morphine CARPU-JECT 2 MG/1 ML DISP.SYRIN IVPUSH ONE (04:32)
--- NOTE | 2018-05-11 08:43 | EKG ---
Test Reason : Blood Pressure : / mmHG Vent. Rate : 072 BPM Atrial Rate : 072 BPM P-R Int : 152 ms QRS Dur : 080 ms QT Int : 414 ms P-R-T Axes : 040 012 037 degrees QTc Int : 453 ms NORMAL SINUS RHYTHM WITH SINUS ARRHYTHMIA CANNOT RULE OUT SEPTAL INFARCT , AGE UNDETERMINED ABNORMAL ECG WHEN COMPARED WITH ECG OF 09-APR-2018 08:37, NO SIGNIFICANT CHANGE WAS FOUND Confirmed by STACIA MENDOZA MD ([id number]) on 05/11/2018 8:42:59 AM Referred By: Confirmed By:STACIA MENDOZA MD
[2018-05-11] MEDS: MORPHINE SULFATE 2 MG/ML VIAL IVPUSH PRN ×2 (13:34→20:49)
[2018-05-11] MEDS: DEXTROSE 5%-0.45% SALINE 1,000 ML IV SCH (13:34)
--- NOTE | 2018-05-11 15:55 | CONSULT ---
Consult Consult Specialty:: General Surgery Referred by:: Dr. Cote Reason for Consultation:: abdominal pain, ileal conduit with pain, ?prolapse, ? hernia - History of Present Illness Chief Complaint: abdominal pain, ileal conduit protrusion, n/v History of Present Illness: 42yo obese F with h/o nephrolithiasis, CKD, bilateral nephrostomies converted to ileal conduit with cystectomy at [facility] ~2006 for endometriosis and stone disease per patient (unclear if other reasons but pt denies history of cancer), with multiple previous admissions for abdominal pain, UTIs, among other complaints, admitted through ER for abdominal pain which occurred on getting up from lying down position associated with protrusion of ileal conduit, which had never happened before. She had pain at the conduit, and was able to slowly reduce it, but then had pain radiating to the left abdomen and under/around conduit site as well. She has had URI symptoms for 2 days, including sore throat , burning on swallowing, cough, SOB/wheezing, nausea and vomiting though still has tolerated some food, also with abdominal pain and cloudy urine. Abdominal pain seems mostly left-sided and at the conduit on the right; she denies constipation or diarrhea, last soft, formed BM yesterday. In the ER, she was afebrile with normal wbc, baseline elevated BUN/Cr, unremarkable other labs. CT showed no parastomal hernia but umbilical/ incisional hernia with SB loops (seen on previous CT), decompressed without evidence of proximal dilation or obstruction, gallstones without ductal dilation or signs of cholecystitis, air in renal collecting systems, hydronephrosis/hydroureters, large right ovarian cyst, absent bladder, fibroids in uterus. Urine in bag but has not yet been sent to lab. Patient has been admitted to medicine, kept NPO on IVF and given pain medication and some antibiotics. Surgery is asked to evaluate. Pt admits to continued nausea but wants to know if she can eat. Indicates abdominal pain and tenderness. Boyfriend at bedside. - History Source History Provided By: Patient Limitations to Obtaining History: Poor Historian (pt does not know details of urinary diversion history and is sketchy on some other history) - Past Medical History Gastrointestinal: Yes: Hiatal Hernia, Other (ileal conduit; umbilical incisional hernia) Hepatobiliary: Yes: Cholelithiasis Renal/: Yes: Renal Inusuff (s/p urinary diversion, bilateral nephrostomies converted to ileal conduit ~2006 [facility]), Renal Calculi, UTI Reproductive: Yes: Endometriosis, Fibroids ...LMP: 05/05/18 ...: No Heme/Onc: Yes: Anemia Psych: Yes: Anxiety, Depression Endocrine: Yes: Other (prior abnormal TFTs) - Past Surgical History Past Surgical History: Yes: Cystectomy, Ileal Conduit Additional Surgical History: bilateral nephrostomies converted to ileal conduit for endometriosis and stone disease (?) per pt; cystectomy (pt thought ovarian, thinks she still has her bladder); conduit ileoscopy with ureteroscopies 04/[address] Castillo - Alcohol/Substance Use Hx Alcohol Use: No History of Substance Use: reports: Marijuana (daily) Date of Last Use: 05/09/18 - Smoking History Smoking history: Current every day smoker Have you smoked in the past 12 months: Yes Aproximately how many cigarettes per day: 4 (3-5 cigs daily for 5-7 years) - Social History Usual Living Arrangement: Alone ADL: Independent History of Recent Travel: No Home Medications - Allergies Allergies/Adverse Reactions: Allergies Allergy/AdvReac Type Severity Reaction Status Date / Time No Known Allergies Allergy Verified 04/06/18 19:32 - Home Medications Home Medications: Ambulatory Orders NK [No Known Home Medication] 05/11/18 Home Medications (free text): pt occasionally uses Aleve at home prn - advised against NSAID use in future Family Disease History - Family Disease History Family Disease History: CA: Mother, Respiratory: Mother Review of Systems - Review of Systems Constitutional: denies: Chills, Fever Eyes: denies: Blurred Vision, Recent Change in Vision HENT: reports: Difficult Swallowing, Throat Pain. denies: Hearing Loss Neck: reports: Stiffness. denies: Swollen Glands, Tenderness Cardiovascular: denies: Chest Pain, Palpitations Respiratory: reports: Cough, SOB (with URI), Wheezing Gastrointestinal: reports: Abdominal Pain, Nausea, Vomiting. denies: Constipation, Diarrhea Genitourinary: reports: Other (cloudy urine ~3 days - "placido" particles in bag) . denies: Hematuria Musculoskeletal: denies: Back Pain, Joint Pain, Muscle Pain Integumentary: denies: Change in Color, Rash Neurological: denies: Dizziness, Headache Psychiatric: reports: Anxiety, Depression Physical Exam Vital Signs: Vital Signs Temperature 98.1 F 05/11/18 09:00 Pulse Rate 68 05/11/18 09:00 Respiratory Rate 20 05/11/18 09:00 Blood Pressure 127/70 05/11/18 09:00 O2 Sat by Pulse Oximetry (%) 97 05/11/18 01:12 Constitutional: Yes: No Distress, Calm, Obese Eyes: Yes: Conjunctiva Clear, EOM Intact. No: Sclera Icterus HENT: Yes: Atraumatic, Normocephalic Neck: Yes: Supple, Trachea Midline Cardiovascular: Yes: Regular Rate and Rhythm. No: Murmur Respiratory: Yes: Regular, Cough (wet cough), Wheezes (inspiratory and expiratory). No: On Nasal O2, SOB Gastrointestinal: Yes: Normal Bowel Sounds, Soft, Abdomen, Obese, Hernia ( umbilical/incisional (noted on CT) - very difficult to palpate secondary to body habitus, somewhat tender in region, at least partially reducible but somewhat tender in area), Tenderness (left > right except tender at/around ileal conduit), Other (ileal conduit - pink, patent, no prolapse currently, no bleeding, no stomal hernia; healed lower midline scar just up around umbilicus to left). No: Tenderness, Rebound (no rebound or guarding) ...Rectal Exam: Yes: Deferred Renal/: No: Other (ileal conduit with yellow urine in bag, some floating whitish debris) Musculoskeletal: No: Joint Stiffness, Joint Swelling Extremities: No: Cool, Cyanosis Edema: No Peripheral Pulses WNL: Yes Integumentary: Yes: Tattoos. No: Jaundice, Rash Neurological: Yes: Alert, Oriented Labs: CBC, BMP 05/11/18 01:54 05/11/18 01:54 CMP Sodium 138 mmol/L (136-145) 05/11/18 01:54 Potassium 4.7 mmol/L (3.5-5.1) 05/11/18 01:54 Chloride 107 mmol/L (98-107) 05/11/18 01:54 Carbon Dioxide 23 mmol/L (21-32) 05/11/18 01:54 Anion Gap 8 (8-16) 05/11/18 01:54 BUN 22 mg/dL (7-18) H 05/11/18 01:54 Creatinine 1.9 mg/dL (0.55-1.02) H 05/11/18 01:54 Creat Clearance w eGFR 28.85 (>60) 05/11/18 01:54 Random Glucose 97 mg/dL (74-106) 05/11/18 01:54 Calcium 8.8 mg/dL (8.5-10.1) 05/11/18 01:54 Magnesium 2.1 mg/dL (1.8-2.4) 05/11/18 01:54 Total Bilirubin 0.4 mg/dL (0.2-1.0) 05/11/18 01:54 AST 26 U/L (15-37) 05/11/18 01:54 ALT 25 U/L (12-78) 05/11/18 01:54 Alkaline Phosphatase 80 U/L (45-117) 05/11/18 01:54 Total Protein 7.5 g/dl (6.4-8.2) 05/11/18 01:54 Albumin 3.4 g/dl (3.4-5.0) 05/11/18 01:54 Serum , Qual Negative 05/11/18 01:54 INR, PTT INR 0.96 (0.82-1.09) 05/11/18 01:54 UA and UCx pending - just obtained BUN/Cr at baseline for patient Imaging - Results Cat Scan: Report Reviewed, Image Reviewed (images personally reviewed and compared to prior from last month - ileal conduit without parastomal hernia; umbilical/incisional hernia present with small bowel loops but no evidence obstruction, stable from previous scan; large right ovarian cyst present, fibroids in uterus, s/p cystectomy, air in renal collecting systems, cholelithiasis) Problem List - Problems (2) Prolapse of urostomy Assessment/Plan: likely had prolapse of ileal conduit, self-reduced, associated with some pain and tenderness no current prolapse no indication for intervention encouraged gentle reduction if it recurs would defer to urology for management if it becomes a persistent problem Code(s): N99.528 - OTHER COMP OF INCONTINENT EXTERNAL STOMA OF URINARY TRACT (3) Abdominal pain Assessment/Plan: likely multifactorial umbilical/incisional hernia at least partially reducible and stable on imaging - unlikely to be primary source checking urine for infection could be related to transient GI illness? - given n/v, URI would avoid NSAIDs and narcotics as able urology also consulted likely ok for po trial when nausea resolves Code(s): R10.9 - UNSPECIFIED ABDOMINAL PAIN Qualifiers: Abdominal location: generalized Qualified Code(s): R10.84 - Generalized abdominal pain (4) Nausea & vomiting Assessment/Plan: no current vomiting, but pt does endorse nausea when resolved, likely ok for diet Code(s): R11.2 - NAUSEA WITH VOMITING, UNSPECIFIED Qualifiers: Vomiting type: unspecified Vomiting Intractability: non-intractable Qualified Code(s): R11.2 - Nausea with vomiting, unspecified (5) Incisional hernia of anterior abdominal wall without obstruction or gangrene Assessment/Plan: umbilical/incisional - no evidence of obstruction, feels at least partly reducible no indication for acute surgical intervention Code(s): K43.2 - INCISIONAL HERNIA WITHOUT OBSTRUCTION OR GANGRENE (6) Upper respiratory infection Assessment/Plan: defer to primary team Code(s): J06.9 - ACUTE UPPER RESPIRATORY INFECTION, UNSPECIFIED Qualifiers: URI type: unspecified URI Qualified Code(s): J06.9 - Acute upper respiratory infection, unspecified (7) CKD (chronic kidney disease) Assessment/Plan: appears at baseline renal function urology consulted consider nephrology? Code(s): N18.9 - CHRONIC KIDNEY DISEASE, UNSPECIFIED Qualifiers: Chronic kidney disease stage: unspecified stage Qualified Code(s): N18.9 - Chronic kidney disease, unspecified (8) Hydronephrosis Code(s): N13.30 - UNSPECIFIED HYDRONEPHROSIS Qualifiers: Hydronephrosis type: other Qualified Code(s): N13.39 - Other hydronephrosis (9) Obesity Code(s): E66.9 - OBESITY, UNSPECIFIED Qualifiers: Obesity type: due to excess calories Obesity classification: adult class 2 (BMI 35 - 39.9) Serious obesity comorbidity presence: without serious comorbidity Body mass index: BMI 35.0-35.9 Qualified Code(s): E66.09 - Other obesity due to excess calories; Z68.35 - Body mass index (BMI) 35.0-35.9, adult (10) Smokes cigarettes Assessment/Plan: counseled regarding cessation Code(s): F17.210 - NICOTINE DEPENDENCE, CIGARETTES, UNCOMPLICATED (11) Marijuana abuse, continuous Assessment/Plan: counseled regarding cessation Code(s): F12.10 - CANNABIS ABUSE, UNCOMPLICATED Assessment/Plan Discussed with Dr. Cote Thank you for the opportunity to participate in the care of this patient.
--- NOTE | 2018-05-11 17:14 | PN ---
Progress Note (short form) - Note Progress Note: UROLOGY NOTE 42 Y/O Female with history of cystectomy and ileal conduit S/P Ileoscopy and bilateral RGS 04/13/2018 which shows bilateral chronic hydronephrosis and bilateral reflux, last ct-scan 05/11/2018 show bilateral hydro, right renal stone 6mm and air in collecting cystem which is normal after urological procedure. She complains occasional RT flank pain, her last cr was 1.9 plan to schedule her for right ESWL in may.
[2018-05-11] MEDS ORDERED: ALBUTEROL SO4 2.5/IPRATROPIUM 0.5 INH SOL 3 ML VIAL.NEB. NEB PRN (19:52)
--- NOTE | 2018-05-11 19:52 | HP ---
Admitting History and Physical - Past Medical History Gastrointestinal: Yes: Hiatal Hernia, Other (ileal conduit; umbilical incisional hernia) Hepatobiliary: Yes: Cholelithiasis Renal/: Yes: Renal Inusuff (s/p urinary diversion, bilateral nephrostomies converted to ileal conduit ~2006 [facility]), Renal Calculi, UTI ...LMP: 05/05/18 ...: No Heme/Onc: Yes: Anemia Psych: Yes: Anxiety, Depression Endocrine: Yes: Other (prior abnormal TFTs) - Past Surgical History Past Surgical History: Yes: Cystectomy, Ileal Conduit - Smoking History Smoking history: Current every day smoker Have you smoked in the past 12 months: Yes Aproximately how many cigarettes per day: 4 (3-5 cigs daily for 5-7 years) - Alcohol/Substance Use Hx Alcohol Use: No History of Substance Use: reports: Marijuana (daily) Date of Last Use: 05/09/18 - Social History ADL: Independent History of Recent Travel: No Home Medications - Allergies Allergies/Adverse Reactions: Allergies Allergy/AdvReac Type Severity Reaction Status Date / Time No Known Allergies Allergy Verified 04/06/18 19:32 - Home Medications Home Medications: Ambulatory Orders NK [No Known Home Medication] 05/11/18 Family Disease History - Family Disease History Family Disease History: CA: Mother, Respiratory: Mother Physical Examination Vital Signs: Vital Signs Temperature 98.1 F 05/11/18 09:00 Pulse Rate 68 05/11/18 09:00 Respiratory Rate 20 05/11/18 09:00 Blood Pressure 127/70 05/11/18 09:00 O2 Sat by Pulse Oximetry (%) 97 05/11/18 01:12 Labs: CBC, BMP 05/11/18 01:54 05/11/18 01:54
[2018-05-11] MEDS: HEPARIN NA (PORCINE) 5,000 UNITS/ML 1ML VIAL SQ SCH ×2 (20:48→22:56)
[2018-05-11 21:41] LABS: URINE BILIRUBIN NEGATIVE (<2.0 mg/dL); URINE GLUCOSE (UA) NEGATIVE (NEGATIVE); URINE KETONE NEGATIVE (NEGATIVE); URINE NITRITE NEGATIVE (NEGATIVE); URINE UROBILINOGEN 0.2 mg/dL (0.2-1.0)
[2018-05-11 21:42] LABS: URINE APPEARANCE TURBID
[2018-05-11 21:47] LABS: URINE LEUK ESTERASE LARGE (NEGATIVE)
[2018-05-12] MEDS: MORPHINE SULFATE 2 MG/ML VIAL IVPUSH PRN ×4 (01:04→20:20)
[2018-05-12] MEDS: DEXTROSE 5%-0.45% SALINE 1,000 ML IV SCH (01:08)
[2018-05-12 08:09] LABS: BASO % 0.5 % (0-2.0); HEMATOCRIT 39.5 % (32.4-45.2); HEMOGLOBIN 13.3 GM/dL (10.7-15.3); LYMPH % 26.2 % (8-40); MCH 29.9 pg (25.7-33.7); MCHC 33.8 g/dl (32.0-36.0); MEAN CELL VOLUME 88.6 fl (80-96); MEAN PLT VOLUME 8.9 fl (7.5-11.1); MONO % 7.8 % (3.8-10.2); NEUT % 52.5 % (42.8-82.8); PLATELET COUNT 174 K/MM3 (134-434); RBC 4.46 M/mm3 (3.60-5.2); RDW 14.3 % (11.6-15.6); WHITE BLOOD COUNT 5.1 K/mm3 (4.0-10.0)
[2018-05-12 09:02] LABS: ALBUMIN 2.9 g/dl (3.4-5.0); ALK PHOS 73 U/L (45-117); ANION GAP 7 (8-16); BILIRUBIN,TOTAL 0.3 mg/dL (0.2-1.0); BLOOD UREA NITROGEN 16 mg/dL (7-18); CALCIUM 8.5 mg/dL (8.5-10.1); CHLORIDE 109 mmol/L (98-107); CO2 24 mmol/L (21-32); CREATININE 1.6 mg/dL (0.55-1.02); GLUCOSE,RANDOM 85 mg/dL (74-106); POTASSIUM 4.4 mmol/L (3.5-5.1); SGOT/AST 21 U/L (15-37); SGPT/ALT 21 U/L (12-78); SODIUM 140 mmol/L (136-145); TOT PROT 6.7 g/dl (6.4-8.2)
[2018-05-12] MEDS: HEPARIN NA (PORCINE) 5,000 UNITS/ML 1ML VIAL SQ SCH ×2 (09:47→22:05)
--- NOTE | 2018-05-12 16:05 | PN ---
Physical Exam: SUBJECTIVE: Patient seen and examined. She has no complaints. OBJECTIVE: Vital Signs Period Temp Pulse Resp BP Sys/Minor Pulse Ox Last 24 Hr 97.4 F-98.6 F 59-66 20-20 130-145/59-90 98-98 GENERAL: The patient is awake, alert, and fully oriented, in no acute distress. LUNGS: Breath sounds equal, clear to auscultation bilaterally, no wheezes, no crackles, no accessory muscle use. HEART: Regular rate and rhythm, S1, S2 without murmur, rub or gallop. ABDOMEN: Soft, nontender, nondistended, normoactive bowel sounds, no guarding, no rebound, no hepatosplenomegaly, no masses. Ileostomy draining clear yellow urine. EXTREMITIES: 2+ pulses, warm, well-perfused, no edema. Laboratory Results - last 24 hr 05/11/18 05/12/18 05/12/18 15:45 07:00 07:00 WBC 5.1 RBC 4.46 Hgb 13.3 Hct 39.5 MCV 88.6 MCH 29.9 MCHC 33.8 RDW 14.3 Plt Count 174 MPV 8.9 Absolute Neuts (auto) 2.7 Neutrophils % 52.5 D Lymphocytes % 26.2 D Monocytes % 7.8 Eosinophils % 13.0 H D Basophils % 0.5 Nucleated RBC % 0 Sodium 140 Potassium 4.4 Chloride 109 H Carbon Dioxide 24 Anion Gap 7 L BUN 16 Creatinine 1.6 H Creat Clearance w eGFR 35.18 Random Glucose 85 Calcium 8.5 Total Bilirubin 0.3 AST 21 ALT 21 Alkaline Phosphatase 73 Total Protein 6.7 Albumin 2.9 L Urine Color yellow Urine Appearance Turbid Urine pH 7.0 Ur Specific [place] 1.015 Urine Protein 100 mg/dl Urine Glucose (UA) Negative Urine Ketones Negative Urine Blood Moderate Urine Nitrite Negative D Urine Bilirubin Negative Urine Urobilinogen 0.2 Ur Leukocyte Esterase Large H Active Medications Generic Name Dose Route Start Last Admin Trade Name Freq PRN Reason Stop Dose Admin Albuterol/Ipratropium 1 amp 05/11/18 19:52 Duoneb - NEB Q6H PRN SHORTNESS OF BREATH Heparin Sodium (Porcine) 5,000 unit 05/11/18 22:00 05/12/18 09:47 Heparin - SQ 5,000 unit BID PATRICK Administration Levofloxacin 500 mg in 100 mls @ 100 mls/hr 05/11/18 20:00 05/12/18 09:47 Levaquin 500 Mg Premixed Ivpb - IVPB 100 mls/hr DAILY PATRICK Administration Protocol Morphine Sulfate 2 mg 05/11/18 12:15 05/12/18 15:03 Morphine Sulfate IVPUSH 2 mg Q4H PRN Administration pain ASSESSMENT/PLAN: 1. Prolapse of ileal conduit - Self-reduced - Pain resolved 2. Abdominal pain with nausea, vomiting - Resolved - Tolerating diet 3. Incisional hernia - Non-tender - Partially reducible 4. Bilateral chronic hydronephrosis, 6 mm right renal stone with renal colic - Plan for ESWL as outpatient 5. Possible UTI - Continue Levaquin - Urine culture pending 6. Stage 4 CKD - Stable 7. Obesity with BMI 35.9 8. Nicotine dependence 9. Marijuana use Visit type - Emergency Visit Emergency Visit: Yes ED Registration Date: 05/11/18 Care time: The patient presented to the Emergency Department on the above date and was hospitalized for further evaluation of their emergent condition. - New Patient This patient is new to me today: Yes Date on this admission: 05/12/18 - Critical Care Critical Care patient: No - Discharge Referral Referred to [facility] No
[2018-05-13] MEDS: MELATONIN 5 MG TABLETS PO PRN (00:27)
[2018-05-13] MEDS: MORPHINE SULFATE 2 MG/ML VIAL IVPUSH PRN ×5 (00:27→20:06)
[2018-05-13] MEDS: HEPARIN NA (PORCINE) 5,000 UNITS/ML 1ML VIAL SQ SCH ×2 (09:53→22:01)
--- NOTE | 2018-05-13 11:23 | PN ---
Physical Exam: SUBJECTIVE: Patient seen and examined. She complains of abdominal pain. She denies fever, nausea, vomiting, diarrhea, constipation, melena, rectal bleeding. OBJECTIVE: Vital Signs Period Temp Pulse Resp BP Sys/Minor Pulse Ox Last 24 Hr 98.2 F-98.6 F 56-66 16-20 134-151/80-87 98 GENERAL: The patient is awake, alert, and fully oriented, in no acute distress. LUNGS: Breath sounds equal, clear to auscultation bilaterally, no wheezes, no crackles, no accessory muscle use. HEART: Regular rate and rhythm, S1, S2 without murmur, rub or gallop. ABDOMEN: Obese, soft, nondistended, mild diffuse tenderness, normoactive bowel sounds, no guarding, no rebound, no hepatosplenomegaly, no masses. Ileostomy draining clear yellow urine. EXTREMITIES: 2+ pulses, warm, well-perfused, no edema. Active Medications Generic Name Dose Route Start Last Admin Trade Name Freq PRN Reason Stop Dose Admin Albuterol/Ipratropium 1 amp 05/11/18 19:52 Duoneb - NEB Q6H PRN SHORTNESS OF BREATH Heparin Sodium (Porcine) 5,000 unit 05/11/18 22:00 05/13/18 09:53 Heparin - SQ 5,000 unit BID PATRICK Administration Levofloxacin 500 mg in 100 mls @ 100 mls/hr 05/11/18 20:00 05/13/18 09:53 Levaquin 500 Mg Premixed Ivpb - IVPB 100 mls/hr DAILY PATRICK Administration Protocol Melatonin 5 mg 05/12/18 23:37 05/13/18 00:27 Melatonin PO 5 mg HS PRN Administration INSOMNIA Morphine Sulfate 2 mg 05/11/18 12:15 05/13/18 07:50 Morphine Sulfate IVPUSH 2 mg Q4H PRN Administration pain ASSESSMENT/PLAN: 1. Prolapse of ileal conduit - Self-reduced - Patient reports recurrence overnight which she again self-reduced 2. Abdominal pain with nausea, vomiting - Nausea, vomiting resolved but abdominal pain has recurred after she reduced ileal conduit prolapse - Tolerating diet - Continue morphine as needed 3. Incisional hernia - Non-tender - Partially reducible 4. Bilateral chronic hydronephrosis, 6 mm right renal stone with renal colic - Plan for ESWL as outpatient 5. UTI - Urine culture growing lactose-fermenting gram neg rods - Continue Levaquin - Follow up identification and sensitivities 6. Stage 4 CKD - Stable 7. Obesity with BMI 35.9 8. Nicotine dependence 9. Marijuana use Visit type - Emergency Visit Emergency Visit: Yes ED Registration Date: 05/11/18 Care time: The patient presented to the Emergency Department on the above date and was hospitalized for further evaluation of their emergent condition. - New Patient This patient is new to me today: No - Critical Care Critical Care patient: No - Discharge Referral Referred to [facility] No
[2018-05-13] MEDS ORDERED: PT OWN MED DRAWER 7, Y5N ONE (22:36)
[2018-05-14] MEDS: MORPHINE SULFATE 2 MG/ML VIAL IVPUSH PRN ×6 (00:50→23:29)
[2018-05-14 08:40] LABS: ANION GAP 8 (8-16); BLOOD UREA NITROGEN 20 mg/dL (7-18); CALCIUM 9.4 mg/dL (8.5-10.1); CHLORIDE 109 mmol/L (98-107); CO2 22 mmol/L (21-32); CREATININE 1.9 mg/dL (0.55-1.02); GLUCOSE,RANDOM 90 mg/dL (74-106); POTASSIUM 4.3 mmol/L (3.5-5.1); SODIUM 139 mmol/L (136-145)
[2018-05-14] MEDS: HEPARIN NA (PORCINE) 5,000 UNITS/ML 1ML VIAL SQ SCH ×2 (09:12→22:12)
--- NOTE | 2018-05-14 15:16 | PN ---
Physical Exam: SUBJECTIVE: Patient seen and examined. Has epigastric pain, no vomiting. OBJECTIVE: Vital Signs Period Temp Pulse Resp BP Sys/Minor Pulse Ox Last 24 Hr 98 F-98.3 F 70-79 16-18 116-148/72-82 98-100 PE Neuro: alert, awake, cn 2-12intact Pulm: CTAB CV: s1 s2 rrr no mrg Abd: s nt nd + bs, RLQ Ileostomy draining clear yellow urine. Laboratory Results - last 24 hr 05/14/18 07:01 Sodium 139 Potassium 4.3 Chloride 109 H Carbon Dioxide 22 Anion Gap 8 BUN 20 H Creatinine 1.9 H Creat Clearance w eGFR 28.85 Random Glucose 90 Calcium 9.4 Active Medications Generic Name Dose Route Start Last Admin Trade Name Freq PRN Reason Stop Dose Admin Albuterol/Ipratropium 1 amp 05/11/18 19:52 Duoneb - NEB Q6H PRN SHORTNESS OF BREATH Heparin Sodium (Porcine) 5,000 unit 05/11/18 22:00 05/14/18 09:12 Heparin - SQ 5,000 unit BID PATRICK Administration Levofloxacin 500 mg in 100 mls @ 100 mls/hr 05/11/18 20:00 05/14/18 09:12 Levaquin 500 Mg Premixed Ivpb - IVPB 100 mls/hr DAILY PATRICK Administration Protocol Melatonin 5 mg 05/12/18 23:37 05/13/18 00:27 Melatonin PO 5 mg HS PRN Administration INSOMNIA Morphine Sulfate 2 mg 05/11/18 12:15 05/14/18 10:49 Morphine Sulfate IVPUSH 2 mg Q4H PRN Administration pain Assessment: 42 year old female with pmhx renal Insufficiency (s/p urinary diversion, ileal conduit 8 yrs ago at [facility]), anemia (chronic, iron deficiency anemia ), anxiety, and depression admitted with abdominal pain. Plan: 1. Kelbsiella UTI - Urine cx noted - Continue Levaquin, if cr worsens switch to ceftriaxone - Check bmp in AM 2. Prolapse of ileal conduit - Self-reduced 3. Abdominal pain with nausea, vomiting - Continue to have abdominal pain, morphine helps for a while, dose not want po narcotics - Tolerating diet - Continue morphine as needed 4. Incisional hernia - Non-tender - Partially reducible 5. Bilateral chronic hydronephrosis, 6 mm right renal stone with renal colic - Plan for ESWL as outpatient 6. Stage 4 CKD - Cr around baseline 7. Obesity with BMI 35.9 8. Nicotine dependence 9. Marijuana use Dispo: - Home tomorrow on po abx, pending stable cr Visit type - Emergency Visit Emergency Visit: Yes ED Registration Date: 05/11/18 Care time: The patient presented to the Emergency Department on the above date and was hospitalized for further evaluation of their emergent condition. - New Patient This patient is new to me today: Yes Date on this admission: 05/14/18 - Critical Care Critical Care patient: No
[2018-05-14] MEDS ORDERED: PT OWN MED DRAWER 7, Y5N ONE (23:28)
[2018-05-14] MEDS: MELATONIN 5 MG TABLETS PO PRN (23:30)
[2018-05-15] MEDS: MORPHINE SULFATE 2 MG/ML VIAL IVPUSH PRN ×4 (05:04→19:49)
[2018-05-15 08:53] LABS: ANION GAP 5 (8-16); BLOOD UREA NITROGEN 20 mg/dL (7-18); CALCIUM 9.1 mg/dL (8.5-10.1); CHLORIDE 110 mmol/L (98-107); CO2 25 mmol/L (21-32); GLUCOSE,RANDOM 90 mg/dL (74-106); POTASSIUM 4.4 mmol/L (3.5-5.1); SODIUM 140 mmol/L (136-145)
[2018-05-15] MEDS: HEPARIN NA (PORCINE) 5,000 UNITS/ML 1ML VIAL SQ SCH ×2 (09:26→21:43)
--- NOTE | 2018-05-15 21:22 | PN ---
Progress Note, Physician - Current Medication List Current Medications: Active Medications Albuterol/Ipratropium (Duoneb -) 1 amp NEB Q6H PRN PRN Reason: SHORTNESS OF BREATH Heparin Sodium (Porcine) (Heparin -) 5,000 unit SQ BID PATRICK Last Admin: 05/15/18 09:26 Dose: 5,000 unit Levofloxacin (Levaquin 500 Mg Premixed Ivpb -) 500 mg in 100 mls @ 100 mls/hr IVPB DAILY PATRICK; Protocol Last Admin: 05/15/18 09:26 Dose: 100 mls/hr Melatonin (Melatonin) 5 mg PO HS PRN PRN Reason: INSOMNIA Last Admin: 05/14/18 23:30 Dose: 5 mg Morphine Sulfate (Morphine Sulfate) 2 mg IVPUSH Q4H PRN PRN Reason: pain Last Admin: 05/15/18 19:49 Dose: 2 mg - Objective Vital Signs: Vital Signs Temperature 97.5 F L 05/15/18 06:15 Pulse Rate 72 05/15/18 06:15 Respiratory Rate 20 05/15/18 06:15 Blood Pressure 105/65 05/15/18 06:15 O2 Sat by Pulse Oximetry (%) 100 05/15/18 09:00 Labs: CBC, BMP 05/12/18 07:00 05/15/18 07:45 INR, PTT INR 0.96 (0.82-1.09) 05/11/18 01:54
[2018-05-15] MEDS ORDERED: PT OWN MED DRAWER 7, Y5N ONE (23:57)
[2018-05-16] MEDS: MELATONIN 5 MG TABLETS PO PRN
[2018-05-16 06:03] VITALS: BP 137/66; PULSE 67; TEMP 98.5
[2018-05-16] MEDS: MORPHINE SULFATE 2 MG/ML VIAL IVPUSH PRN ×2 (06:06)
[2018-05-16] MEDS: HEPARIN NA (PORCINE) 5,000 UNITS/ML 1ML VIAL SQ SCH (10:35)
== END 2018-05-16 15:17 | disposition home or self-care (01) | DRG 463 ==
LOC: JER 00:56 → JERBED 04:34 → UNDOADMIN 04:48 → J6S 07:20
PROVIDERS: ADMIT Internal Medicine; ATTEND Internal Medicine
DX: N39.0 Urinary tract infection, site not specified (principal); N13.2 Hydronephrosis with renal and ureteral calculous obstruction; N18.4 Chronic kidney disease, stage 4 (severe); N99.538 Other complication of continent stoma of urinary tract; D50.9 Iron deficiency anemia, unspecified; F41.9 Anxiety disorder, unspecified; F32.9 Major depressive disorder, single episode, unspecified; F17.210 Nicotine dependence, cigarettes, uncomplicated; E66.9 Obesity, unspecified; K42.9 Umbilical hernia without obstruction or gangrene; K43.2 Incisional hernia without obstruction or gangrene; F12.10 Cannabis abuse, uncomplicated; N83.201 Unspecified ovarian cyst, right side; Z68.35 Body mass index [BMI] 35.0-35.9, adult; B96.1 Klebsiella pneumoniae [K. pneumoniae] as the cause of diseases classified elsewhere
CPT/HCPCS: 36415; 71045-TC-FY; 71046-TC-FY; 74176-TC; 80048; 80053; 81003; 83735; 84703; 85025; 85610; 87086; 87186; 93005; 93010; 99281-25; J1644; J7030; J7620

== ENCOUNTER 2018-07-19 22:41 | Observation (INO) | payer OTHER ==
--- NOTE | 2018-07-19 23:53 | PDOC ---
History of Present Illness - History of Present Illness Initial Comments: 07/19/18 23:51 42 yo F with h/o DVT, kidney stones, s/p urostomy/urinary diversion following bilateral nephrostomies converted to ileal conduit (2006 [facility]), and multiple admissions for recurrent UTI's who p/w urinary urgency, and lower abdominal pain. Patient reports two days of worsening urinary urgency, and sharp lower abdominal pain with no identifiable triggers or alleviators. Endorses two episodes of non bilious, non bloody emesis this AM. Previous admission 06/23-06/29/18 for similar complaints with no growth on culture. Denies hemtaturia. Patient denies F/C, CP, SOB, constipation, BPR, lightheadedness, weakness, sensory changes. PMHx: as noted above ROS: as noted SHx: 3-4 cigarettes per day. Denies Etoh, IVDA. Allergies: NKDA PMD: Mynor Castillo, Urologist Cyril Castillo <Con Palomo - Last Filed: 07/20/18 01:51> <Gary Horn - Last Filed: 07/20/18 03:56> - General Chief Complaint: Pain Stated Complaint: STOMACH PAIN Time Seen by Provider: 07/19/18 23:51 Past History - Past Medical History Anemia: Yes Asthma: No Cancer: No Cardiac Disorders: No CVA: No COPD: No CHF: No Dementia: No Diabetes: No GI Disorders: No Disorders: Yes (Ileal Conduit, H/O KIDNEY STONES) HTN: No Hypercholesterolemia: No Kidney Stones: Yes (kidney failure) Liver Disease: No Seizures: No Thyroid Disease: No - Surgical History Abdominal Surgery: No Appendectomy: No Cardiac Surgery: No Cholecystectomy: No Lung Surgery: No Neurologic Surgery: No Orthopedic Surgery: No - Reproductive History (#): 0 Para: 0 - Immunization History Immunization Up to Date: Yes - Suicide/Smoking/Psychosocial Hx Smoking Status: No Smoking History: Never smoked Have you smoked in the past 12 months: No Number of Cigarettes Smoked Daily: 4 (3-5 cigs daily for 5-7 years) Cigars Per Day: 0 'Breaking Loose' booklet given: 02/15/18 Hx Alcohol Use: No Drug/Substance Use Hx: No Substance Use Type: Marijuana Hx Substance Use Treatment: No <Con Paloom - Last Filed: 07/20/18 01:51> <Gary Horn - Last Filed: 07/20/18 03:56> - Past Medical History Allergies/Adverse Reactions: Allergies Allergy/AdvReac Type Severity Reaction Status Date / Time No Known Allergies Allergy Verified 07/19/18 22:44 Home Medications: Ambulatory Orders Acetaminophen [Tylenol] 650 mg PO QID PRN 06/23/18 Review of Systems - Review of Systems Comments:: 07/19/18 23:51 GENERAL/CONSTITUTIONAL: No fever or chills. No weakness. HEAD, EYES, EARS, NOSE AND THROAT: No change in vision. No ear pain or discharge. No sore throat. CARDIOVASCULAR: No chest pain or shortness of breath RESPIRATORY: No cough, wheezing, or hemoptysis. GASTROINTESTINAL: No nausea, vomiting, diarrhea or constipation. GENITOURINARY: + Lower abdominal pain, urinary urgency. No dysuria, frequency. MUSCULOSKELETAL: No joint or muscle swelling or pain. No neck or back pain. SKIN: No rash NEUROLOGIC: No headache, vertigo, loss of consciousness, or change in strength/ sensation. ENDOCRINE: No increased thirst. No abnormal weight change HEMATOLOGIC/LYMPHATIC: No anemia, easy bleeding, or history of blood clots. ALLERGIC/IMMUNOLOGIC: No hives or skin allergy. <Con Palomo - Last Filed: 07/20/18 01:51> *Physical Exam - Vital Signs Last Vital Signs Temp Pulse Resp BP Pulse Ox 98.4 F 84 18 144/100 100 07/19/18 22:42 07/19/18 22:42 07/19/18 22:42 07/19/18 22:42 07/19/18 22:42 - Physical Exam Comments: 07/19/18 23:52 GENERAL: Awake, alert, and fully oriented, in no acute distress HEAD: No signs of trauma, normocephalic, atraumatic EYES: PERRLA, EOMI, sclera anicteric, conjunctiva clear ENT: Hearing grossly normal, nares patent, oropharynx clear without exudates. Moist mucosa. NECK: Normal ROM, supple, no lymphadenopathy, JVD, or masses LUNGS: R>L rales BL LL. Speaks full sentences. HEART: Regular rate and rhythm, normal S1 and S2, no murmurs, rubs or gallops, peripheral pulses normal and equal bilaterally. ABDOMEN: + R mid-abdominal ttp and RLQ ileal conduit. Nontender, normoactive bowel sounds. No guarding, no rebound. No masses. Neg CVA ttp. EXTREMITIES : Normal inspection, Normal range of motion, no edema. No clubbing or cyanosis. SKIN: Warm, Dry, normal turgor, no rashes or lesions noted <Con Palomo - Last Filed: 07/20/18 01:51> - Vital Signs Last Vital Signs Temp Pulse Resp BP Pulse Ox 98.4 F 84 18 144/100 100 07/19/18 22:42 07/19/18 22:42 07/19/18 22:42 07/19/18 22:42 07/19/18 22:42 <Gary Horn - Last Filed: 07/20/18 03:56> ED Treatment Course - LABORATORY CBC & Chemistry Diagram: 07/20/18 02:30 07/20/18 02:30 - ADDITIONAL ORDERS Additional order review: Laboratory Results 07/20/18 07/20/18 07/20/18 02:43 02:43 02:30 Sodium 142 Potassium 4.3 Chloride 111 H Carbon Dioxide 25 Anion Gap 6 L BUN 19 H Creatinine 1.9 H Creat Clearance w eGFR 28.85 Random Glucose 77 Calcium 8.5 Total Bilirubin 0.3 AST 15 ALT 18 Alkaline Phosphatase 70 Total Protein 7.0 Albumin 3.3 L Urine Color Yellow Urine Appearance Cloudy Urine pH 7.0 Ur Specific [place] 1.009 Urine Protein 2+ H Urine Glucose (UA) Negative Urine Ketones Negative Urine Blood 1+ H Urine Nitrite Positive Urine Bilirubin Negative Urine Urobilinogen Negative Ur Leukocyte Esterase 2+ H Urine WBC (Auto) 46 Urine RBC (Auto) 4 Ur Epithelial Cells Rare Urine Bacteria Rare Urine Mucus Rare Urine HCG, Qual Negative 07/20/18 02:30 RBC 4.63 MCV 88.7 MCHC 33.6 RDW 15.2 MPV 8.9 Neutrophils % 67.1 Lymphocytes % 19.3 D Monocytes % 6.2 Eosinophils % 6.7 H Basophils % 0.7 - Medications Given in the ED: ED Medications Discontinued Medications Generic Name Dose Route Start Last Admin Trade Name Freq PRN Reason Stop Dose Admin Acetaminophen 1,000 mg 07/20/18 01:22 07/20/18 02:57 Ofirmev Injection - IVPB 07/20/18 01:23 Not Given ONCE ONE Morphine Sulfate 2 mg 07/20/18 01:22 07/20/18 02:56 Morphine Injection - IVPUSH 07/20/18 01:23 2 mg ONCE ONE Administration Ondansetron HCl 4 mg 07/20/18 01:22 07/20/18 02:57 Zofran Injection IVPUSH 07/20/18 01:23 4 mg ONCE ONE Administration <Israel Hornel - Last Filed: 07/20/18 03:56> Medical Decision Making - Medical Decision Making 07/20/18 00:50 42 yo F with h/o DVT, kidney stones, s/p urostomy/urinary diversion following bilateral nephrostomies converted to ileal conduit (2006 [facility]), and multiple admissions for recurrent UTI's who p/w urinary urgency, and lower abdominal pain. VSS, AF, NAD. + Suprapubic abdominal ttp. Possible cysitis. Low suspicion pyelonoephritis, or obstructive uropathy. + Rales on physical exam. R/ o PNA. Ed Course: CBC,CMP,UA, Urine Cx. 07/20/18 02:15 EKG: NSR with absent ZORAIDA, STD. Normal axis and interval duration Patient signed out to night team. Patient stable and pending labs, and CXR <Con Palomo - Last Filed: 07/20/18 01:51> *DC/Admit/Observation/Transfer - Attestations Physician Attestion: 07/19/18 23:52 I attest to the information provided in this note. <Con Palomo - Last Filed: 07/20/18 01:51> - Discharge Dispostion Decision to Admit order: Yes <Gary Horn - Last Filed: 07/20/18 03:56> Diagnosis at time of Disposition: Urinary tract infection Qualifiers: Urinary tract infection type: site unspecified Hematuria presence: without hematuria Qualified Code(s): N39.0 - Urinary tract infection, site not specified - Discharge Dispostion Condition at time of disposition: Stable - Referrals Referrals: Mynor Castillo MD [Primary Care Provider] - - Patient Instructions Additional Instructions: Please return to the emergency department with any new or worsening symptoms or concerns. Please follow up with your primary care physician within 72 hours. - Post Discharge Activity
--- NOTE | 2018-07-20 00:24 | PDOC ---
Attending Attestation - HPI HPI: 07/20/18 02:06 Patient is a 42 year old female with a significant past medical history of DVT , kidney stones, s/p urostomy/urinary diversion following bilateral nephrostomies converted to ileal conduit (2006 [facility]), who presents to the ED with complaints of lower abdominal pain that began this yesterday morning. Patient reports experiencing intense lower abdominal pain that she states is a sharp pain that prevented her from getting out of bed She reports experiencing associated symptoms of nausea, x3 episodes of vomiting and urinary urgency. She reports having an appointment with her urologist Dr. Castillo this afternoon but states she was unable to get out of bed due to the pain. Denies chest pain, Sob. Denies nausea, vomiting. Denies contact with sick individuals, out of state travelling. Denies fevers, chills. Denies constipation , diarrhea. Allergies: None Social history: Current smoker (3 cigarettes per day). No alcohol. No illicit drugs. Surgical history: Cystectomy, Ileal Conduit PMD: Dr. Mynor Castillo Urologist: Dr. Rayne Castillo - Physicial Exam PE: 07/20/18 02:06 GENERAL: Awake, alert, and fully oriented, in no acute distress HEAD: No signs of trauma EYES: PERRLA, EOMI, sclera anicteric, conjunctiva clear ENT: Auricles normal inspection, hearing grossly normal, nares patent, oropharynx clear without exudates. Moist mucosa NECK: Normal ROM, supple, no lymphadenopathy, JVD, or masses LUNGS: +coarse crackles and rhonchi in bilateral bases, right greater than left. Breath sounds equal, clear to auscultation bilaterally. No wheezes, and no crackles HEART: Regular rate and rhythm, normal S1 and S2, no murmurs, rubs or gallops ABDOMEN: +Slight tenderness surrounding ileal conduit. Soft, normoactive bowel sounds. No guarding, no rebound. No masses GENITOURINARY: +Yellow urine with slight sediment in Ileal conduit. EXTREMITIES: Normal range of motion, no edema. No clubbing or cyanosis. No cords, erythema, or tenderness NEUROLOGICAL: Cranial nerves II through XII grossly intact. Normal speech, normal gait SKIN: Warm, Dry, normal turgor, no rashes or lesions noted. <Leon Suarez - Last Filed: 07/20/18 02:06> - Resident Resident Name: DeweyTresCon - ED Attending Attestation I have performed the following: I have examined & evaluated the patient, The case was reviewed & discussed with the resident, I agree w/resident's findings & plan, Exceptions are as noted - Medical Decision Making 07/20/18 00:24 I, Dr. Naye Carson, DO, attest that this document has been prepared under my direction and personally reviewed by me in its entirety. I further attest, that it accurately reflects all work, treatment, procedures and medical decision -making performed by me. 07/20/18 01:46 a/p: 42yo female with abd pain -hx of ckd, s/p ilioconduit creation -pt with burnign sensation low in abd concerning for uti -n/v today -sediment in urine bag -yellow urine -no f/c -also with cough, coarse bs -will send labs, cxr, ua, ucg -will medicate for pain -will monitor and reassess <Naye Carson - Last Filed: 07/20/18 02:30> Heart Score/ECG Review - ECG Intrepretation Comment:: 07/20/18 02:30 sinus at 65, nl axis, nl interval, no acute st/t wave findings <Naye Carson - Last Filed: 07/20/18 02:30>
[2018-07-20] MEDS ORDERED: ONDANSETRON 4 MG/2 ML VIAL IVPUSH ONE (01:22)
[2018-07-20] MEDS ORDERED: morphine CARPU-JECT 2 MG/1 ML DISP.SYRIN IVPUSH ONE ×2 (01:22→05:03)
[2018-07-20] MEDS ORDERED: ACETAMINOPHEN 1000 MG/100 ML VIAL (NON FORMULARY) IVPB ONE (01:22)
[2018-07-20 02:43] LABS: BASO % 0.7 % (0-2.0); EOS % 6.7 % (0-4.5); HEMATOCRIT 41.1 % (32.4-45.2); HEMOGLOBIN 13.8 GM/dL (10.7-15.3); LYMPH % 19.3 % (8-40); MCH 29.8 pg (25.7-33.7); MCHC 33.6 g/dl (32.0-36.0); MEAN CELL VOLUME 88.7 fl (80-96); MEAN PLT VOLUME 8.9 fl (7.5-11.1); MONO % 6.2 % (3.8-10.2); NEUT % 67.1 % (42.8-82.8); PLATELET COUNT 205 K/MM3 (134-434); RBC 4.63 M/mm3 (3.60-5.2); RDW 15.2 % (11.6-15.6); WHITE BLOOD COUNT 7.4 K/mm3 (4.0-10.0)
[2018-07-20] MEDS ORDERED: MORPHINE SULFATE 2 MG/ML VIAL ONE ×2 (02:43→05:14)
[2018-07-20] MEDS ORDERED: ACETAMINOPHEN INJECTION 100 ML IVPB ONE (02:44)
[2018-07-20] MEDS ORDERED: ONDANSETRON 4 MG/2 ML VIAL ONE (02:44)
[2018-07-20 02:51] LABS: URINE APPEARANCE CLOUDY; URINE BILIRUBIN NEGATIVE (<2.0 mg/dL); URINE COLOR YELLOW; URINE GLUCOSE (UA) NEGATIVE (NEGATIVE); URINE KETONE NEGATIVE (NEGATIVE); URINE LEUK ESTERASE 2+ (NEGATIVE); URINE NITRITE POSITIVE (NEGATIVE); URINE PROTEIN 2+ (NEGATIVE); URINE UROBILINOGEN NEGATIVE mg/dL (0.2-1.0)
[2018-07-20 02:54] LABS: EPI CELLS RARE /HPF (FEW); URINE BACTERIA RARE /hpf (NONE SEEN); URINE MUCUS RARE
[2018-07-20 03:02] LABS: ALBUMIN 3.3 g/dl (3.4-5.0); ALK PHOS 70 U/L (45-117); ANION GAP 6 MMOL/L (8-16); BILIRUBIN,TOTAL 0.3 mg/dL (0.2-1.0); BLOOD UREA NITROGEN 19 mg/dL (7-18); CALCIUM 8.5 mg/dL (8.5-10.1); CHLORIDE 111 mmol/L (98-107); CO2 25 mmol/L (21-32); CREATININE 1.9 mg/dL (0.55-1.02); GLUCOSE,RANDOM 77 mg/dL (74-106); POTASSIUM 4.3 mmol/L (3.5-5.1); SGOT/AST 15 U/L (15-37); SGPT/ALT 18 U/L (12-78); SODIUM 142 mmol/L (136-145)
[2018-07-20] MEDS ORDERED: CEFTRIAXONE 1 GM in DEXTROSE 5%-WATER - 100 ML IVPB ONE (03:55)
[2018-07-20] MEDS ORDERED: CEFTRIAXONE 1 GM/50 ML BAG ONE (04:56)
--- NOTE | 2018-07-20 06:13 | PDOC ---
*Physical Exam - Vital Signs Last Vital Signs Temp Pulse Resp BP Pulse Ox 98.4 F 84 18 144/100 100 07/19/18 22:42 07/19/18 22:42 07/19/18 22:42 07/19/18 22:42 07/19/18 22:42 - Physical Exam Comments: 07/20/18 06:10 General Appearance: Nourished. No Apparent Distress HEENT: No Pharyngeal Erythema, Tonsillar Exudate, Tonsillar Erythema Neck: No Cervical Lymphadenopathy Respiratory/Chest: Lungs Clear, Normal Breath Sounds. No Crackles, Rales, Rhonchi, Wheezing Cardiovascular: Regular Rhythm, Regular Rate. No Murmur, Gallops, Rubs Gastrointestinal/Abdominal: Normal Bowel Sounds, Soft. Suprapubic tenderness to palpation. No Guarding, Rebound, Musculoskeletal: No CVA Tenderness Extremity: Normal Capillary Refill Integumentary: Normal Color, Dry, Warm Neurologic: Fully Oriented, Alert, Normal Mood/Affect, Normal Response, ED Treatment Course - LABORATORY CBC & Chemistry Diagram: 07/20/18 02:30 07/20/18 02:30 - ADDITIONAL ORDERS Additional order review: Laboratory Results 07/20/18 07/20/18 07/20/18 02:43 02:43 02:30 Sodium 142 Potassium 4.3 Chloride 111 H Carbon Dioxide 25 Anion Gap 6 L BUN 19 H Creatinine 1.9 H Creat Clearance w eGFR 28.85 Random Glucose 77 Calcium 8.5 Total Bilirubin 0.3 AST 15 ALT 18 Alkaline Phosphatase 70 Total Protein 7.0 Albumin 3.3 L Urine Color Yellow Urine Appearance Cloudy Urine pH 7.0 Ur Specific [place] 1.009 Urine Protein 2+ H Urine Glucose (UA) Negative Urine Ketones Negative Urine Blood 1+ H Urine Nitrite Positive Urine Bilirubin Negative Urine Urobilinogen Negative Ur Leukocyte Esterase 2+ H Urine WBC (Auto) 46 Urine RBC (Auto) 4 Ur Epithelial Cells Rare Urine Bacteria Rare Urine Mucus Rare Urine HCG, Qual Negative 07/20/18 02:30 RBC 4.63 MCV 88.7 MCHC 33.6 RDW 15.2 MPV 8.9 Neutrophils % 67.1 Lymphocytes % 19.3 D Monocytes % 6.2 Eosinophils % 6.7 H Basophils % 0.7 - Medications Given in the ED: ED Medications Discontinued Medications Generic Name Dose Route Start Last Admin Trade Name Freq PRN Reason Stop Dose Admin Acetaminophen 1,000 mg 07/20/18 01:22 07/20/18 02:57 Ofirmev Injection - IVPB 07/20/18 01:23 Not Given ONCE ONE Ceftriaxone Sodium 1 gm/ 100 mls @ 200 mls/hr 07/20/18 03:55 07/20/18 05:03 Dextrose IVPB 07/20/18 04:24 200 mls/hr ONCE ONE Administration Protocol Morphine Sulfate 2 mg 07/20/18 01:22 07/20/18 02:56 Morphine Injection - IVPUSH 07/20/18 01:23 2 mg ONCE ONE Administration Morphine Sulfate 2 mg 07/20/18 05:03 07/20/18 05:26 Morphine Injection - IVPUSH 07/20/18 05:04 2 mg ONCE ONE Administration Ondansetron HCl 4 mg 07/20/18 01:22 07/20/18 02:57 Zofran Injection IVPUSH 07/20/18 01:23 4 mg ONCE ONE Administration Progress Note - Progress Note Progress Note: The patient is a 42 year old female with a history of frequent UTI with suprapubic catheter who presents for evaluation of lower abdominal pain. Patient is pending lab results and reassessment. Medical Decision Making - Medical Decision Making 07/20/18 06:11 CBC, cmp are unremarkable. UA demonstrates nitrate positive, leuk esterase positive, with elevated wbc consistent with a UTI. Given the patient's pain as well as new nitrate positive urine, we believe she requires observation admission for further management. We will treat the patient with ceftriaxone here in the ED. We discussed the case with Dr. Cote who accepted the patient for admission. *DC/Admit/Observation/Transfer Diagnosis at time of Disposition: Urinary tract infection Qualifiers: Urinary tract infection type: site unspecified Hematuria presence: without hematuria Qualified Code(s): N39.0 - Urinary tract infection, site not specified - Discharge Dispostion Condition at time of disposition: Stable Decision to Admit order: Yes - Referrals - Patient Instructions - Post Discharge Activity
[2018-07-20 09:01] VITALS: BMI 35.2
--- NOTE | 2018-07-20 10:30 | EKG ---
Test Reason : Blood Pressure : / mmHG Vent. Rate : 065 BPM Atrial Rate : 065 BPM P-R Int : 156 ms QRS Dur : 084 ms QT Int : 422 ms P-R-T Axes : 043 040 050 degrees QTc Int : 438 ms NORMAL SINUS RHYTHM ANTEROSEPTAL INFARCT (CITED ON OR BEFORE 08-APR-2018) ABNORMAL ECG WHEN COMPARED WITH ECG OF 23-JUN-2018 02:42, QUESTIONABLE CHANGE IN INITIAL [employer] OF [employer]TERIOR LEADS Confirmed by FREDERICK MICHAEL MD ([id number]) on 07/20/2018 10:29:51 AM Referred By: Confirmed By:FREDERICK MICHAEL MD
[2018-07-20] MEDS: DEXTROSE 5%-0.45% SALINE 1,000 ML IV SCH (10:49)
[2018-07-20] MEDS: KETOROLAC TROMETHAMINE 30 MG/1 ML VIAL IVPUSH SCH ×2 (11:12→17:45)
--- NOTE | 2018-07-20 11:17 | CON.ID ---
Consult Consult Specialty:: infectious diseases Referred by:: Reason for Consultation:: suprapubic pain and back pain - History of Present Illness Chief Complaint: suprapubic pain History of Present Illness: 42 year old female with a significant past medical history of DVT, kidney stones, s/p urostomy/urinary diversion following bilateral nephrostomies converted to ileal conduit (2006 [facility]), admitted with complaints of lower abdominal pain that began this yesterday morning. Patient reports experiencing intense lower abdominal pain that she states is a sharp pain that prevented her from getting out of bed She reports experiencing associated symptoms of nausea, x3 episodes of vomiting and urinary urgency. She reports having an appointment with her urologist Dr. Castillo this afternoon but states she was unable to get out of bed due to the pain. currently she is having sever abd pain - History Source History Provided By: Patient Limitations to Obtaining History: No Limitations - Past Medical History Gastrointestinal: Yes: Hiatal Hernia, Other (ileal conduit; umbilical incisional hernia) Hepatobiliary: Yes: Cholelithiasis Renal/: Yes: Renal Inusuff (s/p urinary diversion, bilateral nephrostomies converted to ileal conduit ~2006 [facility]), Renal Calculi, UTI ...LMP: 05/05/18 ...LMP Comment: LAST WEEK ...: No Psych: Yes: Anxiety, Depression Endocrine: Yes: Other (prior abnormal TFTs) - Past Surgical History Past Surgical History: Yes: Cystectomy, Ileal Conduit - Alcohol/Substance Use Hx Alcohol Use: No History of Substance Use: reports: Marijuana (daily) Date of Last Use: 05/09/18 - Smoking History Smoking history: Never smoked Have you smoked in the past 12 months: No Aproximately how many cigarettes per day: 4 - Social History Usual Living Arrangement: Alone ADL: Independent History of Recent Travel: No Home Medications - Allergies Allergies/Adverse Reactions: Allergies Allergy/AdvReac Type Severity Reaction Status Date / Time No Known Allergies Allergy Verified 07/19/18 22:44 - Home Medications Home Medications: Ambulatory Orders NK [No Known Home Medication] 07/20/18 Family Disease History - Family Disease History Family Disease History: CA: Mother, Respiratory: Mother Review of Systems - Review of Systems Constitutional: reports: No Symptoms Eyes: reports: No Symptoms HENT: reports: No Symptoms Neck: reports: No Symptoms Cardiovascular: reports: No Symptoms Respiratory: reports: No Symptoms Gastrointestinal: reports: Abdominal Pain Genitourinary: reports: Other (suprapubic pain,urostomy in placr) Integumentary: reports: No Symptoms Neurological: reports: No Symptoms Endocrine: reports: No Symptoms Hematology/Lymphatic: reports: No Symptoms Psychiatric: reports: No Symptoms Physical Exam Vital Signs: Vital Signs Temperature 98.3 F 07/20/18 10:26 Pulse Rate 65 07/20/18 10:26 Respiratory Rate 20 07/20/18 10:26 Blood Pressure 130/88 07/20/18 10:26 O2 Sat by Pulse Oximetry (%) 100 07/20/18 08:40 Constitutional: Yes: Well Nourished, Calm, Mild Distress Eyes: Yes: Conjunctiva Clear HENT: Yes: Atraumatic Neck: Yes: Supple Cardiovascular: Yes: Regular Rate and Rhythm Respiratory: Yes: Regular, CTA Bilaterally Gastrointestinal: Yes: Normal Bowel Sounds, Soft Renal/: Yes: Other (urostomy in place) Musculoskeletal: Yes: WNL Extremities: Yes: WNL Neurological: Yes: Alert, Oriented Psychiatric: Yes: Alert, Oriented Labs: CBC, BMP 07/20/18 02:30 07/20/18 02:30 Imaging - Results Chest X-ray: Report Reviewed, Image Reviewed Assessment/Plan Assessment/Plan Problem List - Problems (1) Abdominal pain Code(s): R10.9 - UNSPECIFIED ABDOMINAL PAIN Qualifiers: Abdominal location: generalized Qualified Code(s): R10.84 - Generalized abdominal pain (2) CKD (chronic kidney disease) Code(s): N18.9 - CHRONIC KIDNEY DISEASE, UNSPECIFIED Qualifiers: Chronic kidney disease stage: unspecified stage Qualified Code(s): N18.9 - Chronic kidney disease, unspecified (3) Anemia Code(s): D64.9 - ANEMIA, UNSPECIFIED (4) Hydronephrosis Code(s): N13.30 - UNSPECIFIED HYDRONEPHROSIS Qualifiers: Hydronephrosis type: other Qualified Code(s): N13.39 - Other hydronephrosis plan at the moment will not start on any abx await for cx reports rest as per the team hydration if needed all wbc is normal
--- NOTE | 2018-07-20 12:48 | PN ---
Progress Note (short form) - Note Progress Note: UROLOGY DICTATED. PT. WITH ILEALCONDUET FOR REC. MULT. RENAL STONES PERFORMED AT [facility] 2006.
--- NOTE | 2018-07-20 13:22 | CONS ---
DATE OF CONSULTATION: DATE OF DICTATION: 07/20/2018 Patient is a 42-year-old female with history of multiple nephrolithiasis. She underwent an ileal conduit for passage of multiple stones at [facility] in 2006. The patient also has history of deep vein thrombosis. She gets recurrent attacks of colic. The patient denies any allergies. She smoked 3-4 cigarettes a day. A CT scan of the abdomen performed earlier this month revealed [id number] bilateral renal hydronephrosis with possible parapelvic cyst, dilated ureter is seen extending to the ileal conduit. The right anterior abdominal wall reveals postop changes involving the conduit. There is no evidence of small bowel obstruction. A large ovarian cyst is seen. The osseous structures were intact. There was a small nonobstructing right lower pole renal stone. No other pathology was noted. The patient's latest labs revealed a white count of 7.4, hemoglobin 13.8/hematocrit 41.1. BUN 19/creatinine 1.9. Urine culture is pending. Urinalysis is positive for blood as well as nitrates. The patient presently complains of right flank pain. Will recommend a renal/pelvic ultrasound. If there is evidence of obstructive uropathy, will recommend a right percutaneous nephrostomy and an outpatient extracorporeal shock wave lithotripsy since prior attempts at performing a ureteral catheterization have been unsuccessful due to the ureteroileal anastomosis. Will follow with you. MAURICIO VELEZ M.D. [id number]
--- NOTE | 2018-07-20 18:37 | HP ---
Admitting History and Physical - Past Medical History Gastrointestinal: Yes: Hiatal Hernia, Other (ileal conduit; umbilical incisional hernia) Hepatobiliary: Yes: Cholelithiasis Renal/: Yes: Renal Inusuff (s/p urinary diversion, bilateral nephrostomies converted to ileal conduit ~2006 [facility]), Renal Calculi, UTI ...LMP: 05/05/18 ...LMP Comment: LAST WEEK ...: No Heme/Onc: Yes: Anemia Psych: Yes: Anxiety, Depression Endocrine: Yes: Other (prior abnormal TFTs) - Past Surgical History Past Surgical History: Yes: Cystectomy, Ileal Conduit - Smoking History Smoking history: Never smoked Have you smoked in the past 12 months: No Aproximately how many cigarettes per day: 4 - Alcohol/Substance Use Hx Alcohol Use: No History of Substance Use: reports: Marijuana (daily) Date of Last Use: 05/09/18 - Social History ADL: Independent History of Recent Travel: No Home Medications - Allergies Allergies/Adverse Reactions: Allergies Allergy/AdvReac Type Severity Reaction Status Date / Time No Known Allergies Allergy Verified 07/19/18 22:44 - Home Medications Home Medications: Ambulatory Orders NK [No Known Home Medication] 07/20/18 Family Disease History - Family Disease History Family Disease History: CA: Mother, Respiratory: Mother Physical Examination Vital Signs: Vital Signs Temperature 98.2 F 07/20/18 14:26 Pulse Rate 60 07/20/18 14:26 Respiratory Rate 18 07/20/18 14:26 Blood Pressure 121/88 07/20/18 14:26 O2 Sat by Pulse Oximetry (%) 100 07/20/18 08:40 Labs: CBC, BMP 07/20/18 02:30 07/20/18 02:30
[2018-07-20] MEDS ORDERED: morphine SULFATE 4 MG/ML VIAL IVPUSH ONE ×2 (21:45)
[2018-07-21] MEDS: KETOROLAC TROMETHAMINE 30 MG/1 ML VIAL IVPUSH SCH ×3 (01:54→17:21)
[2018-07-21] MEDS ORDERED: cefTRIAXone SODIUM 1 GM VIAL ONE (09:38)
[2018-07-21] MEDS ORDERED: DEXTROSE 5%-WATER - 50 ML IVPB ONE (09:38)
[2018-07-21] MEDS: CEFTRIAXONE 1 GM in DEXTROSE 5%-WATER - 50 ML IVPB SCH (09:43)
[2018-07-21] MEDS ORDERED: MORPHINE SULFATE 2 MG/ML VIAL IVPUSH ONE ×2 (10:45→22:15)
[2018-07-21] MEDS: DEXTROSE 5%-0.45% SALINE 1,000 ML IV SCH (10:47)
--- NOTE | 2018-07-21 12:21 | PN ---
Progress Note, Physician History of Present Illness: Pt seen and examined. Events noted. Pt c/o abd pain. Remains afebrile. No vomiting, having BMs. no other specific complaints. - Current Medication List Current Medications: Active Medications Ceftriaxone Sodium 1 gm/ (Dextrose) 50 mls @ 100 mls/hr IVPB DAILY PATRICK; Protocol Last Admin: 07/21/18 09:43 Dose: 100 mls/hr Dextrose/Sodium Chloride (D5-1/2ns -) 1,000 mls @ 75 mls/hr IV ASDIR PATRICK Last Admin: 07/21/18 10:47 Dose: 75 mls/hr Ketorolac Tromethamine (Toradol Injection -) 30 mg IVPUSH Q8H-IV PATRICK Stop: 07/25/18 11:14 Last Admin: 07/21/18 09:42 Dose: 30 mg - Objective Vital Signs: Vital Signs Temperature 98.2 F 07/21/18 10:00 Pulse Rate 56 L 07/21/18 10:00 Respiratory Rate 20 07/21/18 10:00 Blood Pressure 147/80 07/21/18 10:00 O2 Sat by Pulse Oximetry (%) 100 07/20/18 22:00 Constitutional: Yes: No Distress Cardiovascular: Yes: Regular Rate and Rhythm Respiratory: Yes: Regular Gastrointestinal: Yes: Normal Bowel Sounds, Soft, Tenderness (generalized) Genitourinary: Yes: Other (ileal conduit) Neurological: Yes: Alert, Oriented Labs: CBC, BMP 07/20/18 02:30 07/20/18 02:30 Problem List - Problems (1) Urinary tract infection Code(s): N39.0 - URINARY TRACT INFECTION, SITE NOT SPECIFIED Qualifiers: Urinary tract infection type: site unspecified Hematuria presence: without hematuria Qualified Code(s): N39.0 - Urinary tract infection, site not specified (2) Abdominal pain Code(s): R10.9 - UNSPECIFIED ABDOMINAL PAIN Qualifiers: Abdominal location: generalized Qualified Code(s): R10.84 - Generalized abdominal pain (3) Anxiety Code(s): F41.9 - ANXIETY DISORDER, UNSPECIFIED (4) CKD (chronic kidney disease) Code(s): N18.9 - CHRONIC KIDNEY DISEASE, UNSPECIFIED Qualifiers: Chronic kidney disease stage: unspecified stage Qualified Code(s): N18.9 - Chronic kidney disease, unspecified (5) Depression Code(s): F32.9 - MAJOR DEPRESSIVE DISORDER, SINGLE EPISODE, UNSPECIFIED (6) Obstructive uropathy Code(s): N13.9 - OBSTRUCTIVE AND REFLUX UROPATHY, UNSPECIFIED Assessment/Plan 42 y.o. 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 current antibiotics empirically Pt afebrile, without leukocytosis monitor vitals
[2018-07-21] MEDS ORDERED: diphenhydrAMINE HCL 25 MG CAPSULE (FP) PO PRN (22:03)
--- NOTE | 2018-07-21 22:56 | PN ---
Progress Note, Physician - Current Medication List Current Medications: Active Medications Diphenhydramine HCl (Benadryl -) 50 mg PO HS PRN PRN Reason: INSOMNIA Last Admin: 07/21/18 22:13 Dose: 50 mg Ceftriaxone Sodium 1 gm/ (Dextrose) 50 mls @ 100 mls/hr IVPB DAILY PATRICK; Protocol Last Admin: 07/21/18 09:43 Dose: 100 mls/hr Dextrose/Sodium Chloride (D5-1/2ns -) 1,000 mls @ 75 mls/hr IV ASDIR PATRICK Last Admin: 07/21/18 10:47 Dose: 75 mls/hr Ketorolac Tromethamine (Toradol Injection -) 30 mg IVPUSH Q8H-IV PATRICK Stop: 07/25/18 11:14 Last Admin: 07/21/18 17:21 Dose: 30 mg - Objective Vital Signs: Vital Signs Temperature 98.3 F 07/21/18 20:45 Pulse Rate 62 07/21/18 20:45 Respiratory Rate 20 07/21/18 20:45 Blood Pressure 145/93 07/21/18 20:45 O2 Sat by Pulse Oximetry (%) 100 07/20/18 22:00 Labs: CBC, BMP 07/20/18 02:30 07/20/18 02:30
[2018-07-22] MEDS: KETOROLAC TROMETHAMINE 30 MG/1 ML VIAL IVPUSH SCH ×2 (01:29→09:57)
[2018-07-22] MEDS ORDERED: cefTRIAXone SODIUM 1 GM VIAL ONE (09:55)
[2018-07-22] MEDS ORDERED: DEXTROSE 5%-WATER - 50 ML IVPB ONE (09:56)
[2018-07-22] MEDS: DEXTROSE 5%-0.45% SALINE 1,000 ML IV SCH (09:58)
[2018-07-22] MEDS: CEFTRIAXONE 1 GM in DEXTROSE 5%-WATER - 50 ML IVPB SCH (09:59)
[2018-07-22 11:20] VITALS: BP 119/84; PULSE 79; TEMP 98.6
[2018-07-22] MEDS ORDERED: MORPHINE SULFATE 2 MG/ML VIAL IVPUSH ONE (11:30)
== END 2018-07-22 15:03 | disposition home or self-care (01) ==
LOC: JER 22:41 → JERBED 07-20 03:56 → J6S 07-20 08:40
PROVIDERS: ADMIT Internal Medicine; ATTEND Internal Medicine
PROC: 3E03329 Introduction of Other Anti-infective into Peripheral Vein, Percutaneous Approach (ICD-10-PCS; principal; 2018-07-20)
PROC: 3E0333Z Introduction of Anti-inflammatory into Peripheral Vein, Percutaneous Approach (ICD-10-PCS; 2018-07-20)
PROC: 3E033NZ Introduction of Analgesics, Hypnotics, Sedatives into Peripheral Vein, Percutaneous Approach (ICD-10-PCS; 2018-07-20)
PROC: 3E0337Z Introduction of Electrolytic and Water Balance Substance into Peripheral Vein, Percutaneous Approach (ICD-10-PCS; 2018-07-20)
PROC: 3E033GC Introduction of Other Therapeutic Substance into Peripheral Vein, Percutaneous Approach (ICD-10-PCS; 2018-07-20)
DX: N39.0 Urinary tract infection, site not specified (principal); N18.9 Chronic kidney disease, unspecified; R10.84 Generalized abdominal pain; D64.9 Anemia, unspecified; N13.9 Obstructive and reflux uropathy, unspecified; N13.39 Other hydronephrosis; F41.9 Anxiety disorder, unspecified; F32.9 Major depressive disorder, single episode, unspecified; Z87.440 Personal history of urinary (tract) infections; Z86.718 Personal history of other venous thrombosis and embolism; Z87.442 Personal history of urinary calculi
CPT/HCPCS: 36415; 71045-TC-FY; 74150-TC; 76775-TC; 76856-TC; 80053; 81003; 81015; 84703; 85025; 87040; 87086; 87186; 93005; 93010; 96365; 96375; 96376; 99284-25; 99285-25; G0378

== ENCOUNTER 2018-09-03 12:47 | Emergency (ER) | payer OTHER ==
[2018-09-03 12:55] VITALS: TEMP 98.3; BMI 36.8
--- NOTE | 2018-09-03 13:49 | PDOC ---
Attending Attestation - Resident Resident Name: Rosa Francis - ED Attending Attestation I have performed the following: I have examined & evaluated the patient, The case was reviewed & discussed with the resident, I agree w/resident's findings & plan, Exceptions are as noted - HPI HPI: 09/03/18 15:05 The patient is a 43 year old female, with a significant past medical history of frequent UTIs and kidney stones (s/p urostomy bag), who presents to the emergency department with, bilateral knee swelling and right sided pelvic pain. As per patient, knee pain is bilateral to the medial and lateral aspects of her knee, ambulating with a limp. She notes worsening shortness of breath secondary to smoking more cigarettes. The patient also endorses right sided pelvic pain radiating to her right flank. She endorses cloudy and foul smelling urine endorses her visit to the ED today. She denies any hematuria. She denies recent fevers, chills, headache or dizziness. She denies recent nausea, vomit, diarrhea or constipation. She denies recent chest pain or shortness of breath. Allergies: NKA Past surgical history: S/p urostomy bag. Social history: Smoker. Attestations - Attestations 09/03/18 15:05 Documentation prepared by Rebeka Florentino, acting as medical educator for Jazmín Canas MD.
[2018-09-03] MEDS ORDERED: ACETAMINOPHEN 500 MG TABLET (FP) PO ONE (14:35)
--- NOTE | 2018-09-03 14:36 | PDOC ---
History of Present Illness - General Chief Complaint: Pain Stated Complaint: ABD PAIN, KNEE PAIN Time Seen by Provider: 09/03/18 13:39 - History of Present Illness Initial Comments: 09/03/18 17:46 The patient is a 43 year old female with a PMH of UTI, nephrolithiasis (s/p urostomy bag 10+ years previous) who presents to the ED c/o 3 day h/o B/L knee pain. Patient states the pain started gradually and became worse in severity prompting her visit to the ED this afternoon. Is ambulatory with pain. No h/o trauma. Has been self-medicating with increased cigarettes and Tylenol at home with Tylenol somewhat relieving the pain. Denies any leg/calf swelling, recent travel. ROS is postive for pelvic pain that sometimes radiates to her right flank. Unable to evaluate dysuria as patient does not urinate, but states she has noticed the urine in her urostomy bag has been cloudy. Patient denies chest pain, shortness of breath, abdominal pain, diarrhea/ constipation, nausea/vomiting. NKDA Surgical: urostomy bag placement Social: 4-5 cigarettes daily, denies alcohol, denies recreational drugs PMD: Dr. Brigida Newby. Past History - Past Medical History Allergies/Adverse Reactions: Allergies Allergy/AdvReac Type Severity Reaction Status Date / Time No Known Allergies Allergy Verified 09/03/18 12:52 Home Medications: Ambulatory Orders Cephalexin [Keflex] 500 mg PO BID 5 Days #10 capsule 09/03/18 Anemia: Yes Asthma: No Cancer: No Cardiac Disorders: No CVA: No COPD: No CHF: No Dementia: No Diabetes: No GI Disorders: No Disorders: Yes (Ileal Conduit, H/O KIDNEY STONES) HTN: No Hypercholesterolemia: No Kidney Stones: Yes (kidney failure) Liver Disease: No Seizures: No Thyroid Disease: No - Surgical History Abdominal Surgery: No Appendectomy: No Cardiac Surgery: No Cholecystectomy: No Lung Surgery: No Neurologic Surgery: No Orthopedic Surgery: No - Reproductive History (#): 0 Para: 0 - Immunization History Immunization Up to Date: Yes - Suicide/Smoking/Psychosocial Hx Smoking Status: No Smoking History: Current every day smoker Have you smoked in the past 12 months: No Number of Cigarettes Smoked Daily: 4 Cigars Per Day: 0 Information on smoking cessation initiated: Yes 'Breaking Loose' booklet given: 09/03/18 Hx Alcohol Use: No Drug/Substance Use Hx: No Substance Use Type: None Hx Substance Use Treatment: No Review of Systems - Review of Systems Constitutional: No: Chills, Fever HEENTM: No: Blurred Vision, Double Vision Respiratory: No: Cough, Orthopnea, Shortness of Breath, Wheezing Cardiac (ROS): No: Chest Pain, Lightheadedness, Palpitations, Syncope ABD/GI: Yes: Abdominal cramping. No: Constipated, Diarrhea, Nausea, Vomiting, Tarry Stools *Physical Exam - Vital Signs Last Vital Signs Temp Pulse Resp BP Pulse Ox 98.3 F 87 18 130/85 100 09/03/18 12:52 09/03/18 12:52 09/03/18 12:52 09/03/18 12:52 09/03/18 12:52 - Physical Exam General Appearance: Yes: Nourished, Obese HEENT: positive: Normal Voice, Hearing Grossly Normal Neck: positive: Trachea midline, Supple Respiratory/Chest: positive: Lungs Clear, Normal Breath Sounds Cardiovascular: positive: S1, S2 Gastrointestinal/Abdominal: positive: Normal Bowel Sounds, Soft Musculoskeletal: positive: CVA Tenderness (R). negative: CVA Tenderness (L) Extremity: positive: Normal Capillary Refill, Normal Inspection, Other (R sided lateral patellar pleural effusion) Integumentary: positive: Normal Color, Dry, Warm Neurologic: positive: Fully Oriented, Alert Medical Decision Making - Medical Decision Making 43 year old female presents with B/L knee pain. Small pleural effusion on PE. Ambulatory. VS stable. Clinical suspicion for arthritis > fracture. Patient also c/o R pelvic pain,. UA/UC pending. Will obtain XR to r/o fracture. Tylenol for pain control. 09/03/18 17:46 UA shows 1+ leukocyte esterase, 19 WBC -- sample collected from patient's urostomy bag. Will treat for presumptive UTI given patient's risk for pyelonephritis. B/L Knee XR negative Will discharge home with return precautions, Keflex for presumptive UTI and Tylenol for pain control. PMD follow-up. Clinical Impression: Possible UTI I discussed the physical exam findings, ancillary test results and final diagnoses with the patient. I answered all of the patient's questions. The patient was satisfied with the care received and felt comfortable with the discharge plan and treatment plan. The patient will return to the Emergency Department with any new, persistent or worsening symptoms. *DC/Admit/Observation/Transfer Diagnosis at time of Disposition: Knee pain - Discharge Dispostion Disposition: HOME Condition at time of disposition: Good Decision to Admit order: No - Prescriptions Prescriptions: Cephalexin [Keflex] 500 mg PO BID 5 Days #10 capsule - Referrals Referrals: Mynor Castillo MD [Primary Care Provider] - - Patient Instructions Printed Discharge Instructions: DI for Knee Pain Additional Instructions: You were evaluated today for knee pain and pelvic pain. X-rays of your knees showed no fracture with some changes indicating you might have arthritis. You can take Tylenol (up to 4000 mg daily) for your pain. Avoid NSAIDS (Motrin , Ibuprofen) because of your kidneys. A sample of your urine showed urinary tract infection -- it is unclear if it is from the urine sitting in your bag or your actual bladder. We are going to treat you for any presumed infection. A prescription has been sent to your pharmacy, please take the entire prescribed course. Follow up with your primary care doctor in the next 3 days. Return to the Emergency Department for any new/worsening/concerning symptoms. - Post Discharge Activity
[2018-09-03] MEDS ORDERED: ACETAMINOPHEN 325 MG TABLET (FP) ONE (15:01)
[2018-09-03 15:18] LABS: URINE APPEARANCE CLEAR; URINE BILIRUBIN NEGATIVE (<2.0 mg/dL); URINE COLOR STRAW; URINE GLUCOSE (UA) NEGATIVE (NEGATIVE); URINE KETONE NEGATIVE (NEGATIVE); URINE LEUK ESTERASE 1+ (NEGATIVE); URINE NITRITE POSITIVE (NEGATIVE); URINE PROTEIN 2+ (NEGATIVE); URINE UROBILINOGEN NEGATIVE mg/dL (0.2-1.0)
[2018-09-03 15:24] LABS: EPI CELLS RARE /HPF (FEW)
[2018-09-03 15:55] VITALS: BP 129/91; PULSE 68
== END 2018-09-03 18:38 | disposition home or self-care (01) ==
LOC: JER 12:47
DX: M25.561 Pain in right knee (principal); M25.562 Pain in left knee; N39.0 Urinary tract infection, site not specified; Z96.0 Presence of urogenital implants
CPT/HCPCS: 73562-TC-LT-FY; 73562-TC-RT-FY; 81003; 81015; 84703; 87086; 87186; 99285-25

== ENCOUNTER 2018-10-01 17:09 | Inpatient (IN) | payer OTHER ==
--- NOTE | 2018-10-01 17:32 | PDOC ---
Rapid Medical Evaluation Chief Complaint: Nausea/Vomiting Time Seen by Provider: 10/01/18 17:26 Medical Evaluation: Allergies Allergy/AdvReac Type Severity Reaction Status Date / Time No Known Allergies Allergy Verified 10/01/18 17:28 10/01/18 17:29I have performed a brief in-person evaluation of this patient. The patient presents with a chief complaint of: N/V x 2 days with diarhea = no one at home sick,. Pertinent physical exam findings: pale, abd soft - no guarding I have ordered the following: Urine from urostomy tubes The patient will proceed to the ED for further evaluation.
[2018-10-01 18:00] LABS: URINE APPEARANCE SLCLOUDY; URINE BILIRUBIN NEGATIVE (<2.0 mg/dL); URINE COLOR YELLOW; URINE GLUCOSE (UA) NEGATIVE (NEGATIVE); URINE KETONE NEGATIVE (NEGATIVE); URINE LEUK ESTERASE 3+ (NEGATIVE); URINE NITRITE NEGATIVE (NEGATIVE); URINE PROTEIN 2+ (NEGATIVE); URINE UROBILINOGEN NEGATIVE mg/dL (0.2-1.0)
[2018-10-01 18:09] LABS: EPI CELLS RARE /HPF (FEW); URINE BACTERIA RARE /hpf (NONE SEEN); URINE HYALINE CAST 1 /lpf
--- NOTE | 2018-10-01 19:46 | PDOC ---
Attending Attestation - Resident Resident Name: RicardoDez - ED Attending Attestation I have performed the following: I have examined & evaluated the patient, The case was reviewed & discussed with the resident, I agree w/resident's findings & plan, Exceptions are as noted - HPI HPI: 10/01/18 20:20 Ms Stroud is a yo F h/o UTI, extensive h/o nephrolithiasis (s/p urostomy bag 10+ years ) She presents to the ER with a complaint of abdominal pain. Pt reports that she was recently being treated for a UTI (po abx, states this was completed several days ago, now with cloudy and malodorous urine). She reports abdominal pain which she likens to her kidney stones. She has left flank pain and right lower abdominal pain. No fevers, possibly chilld (+) Nausea (+) vomiting (+) diarrhea No ill contacts, recent travel NKDA Surgical: urostomy bag placement Social: 4-5 cigarettes daily, denies alcohol, denies recreational drugs PMD: Dr. Brigida Newby. - Physicial Exam PE: 10/01/18 19:46 GENERAL: The patient is in no acute distress. LUNGS: Breath sounds equal, clear to auscultation bilaterally. HEART:Regular rate and rhythm, normal S1 and S2 without murmur, rub or gallop. ABDOMEN: Soft, Right lower abdominal tenderness EXTREMITIES: Normal range of motion NEUROLOGICAL: Cranial nerves II through XII grossly intact. Normal speech. No focal neurological deficits. MUSCULOSKELETAL: Back non-tender to palpation SKIN: Warm, Dry, normal turgor, no rashes or lesions noted. 10/01/18 20:23 - Medical Decision Making 10/01/18 20:27 Will do: Labs CT Anti Emetics IV fluids 10/01/18 20:28 Laboratory Tests 10/01/18 17:45 Urine Blood 1+ H Urine Nitrite Negative Ur Leukocyte Esterase 3+ H D Urine WBC (Auto) 48 Urine RBC (Auto) 16 10/01/18 21:13 Laboratory Tests 10/01/18 20:00 WBC 7.6 Hgb 14.5 Hct 42.9 Plt Count 229 Neutrophils % 65.7 Lymphocytes % 19.8 CT No SBO, inflammatory process in the abdomen Pt UA + Prior cultures reveal ESBL and Klebsiella Will treat with Zosyn Will admit to hospitalist
[2018-10-01] MEDS ORDERED: ACETAMINOPHEN 1000 MG/100 ML VIAL (NON FORMULARY) IVPB ONE (19:57)
[2018-10-01] MEDS ORDERED: SODIUM CHLORIDE 1,000 ML IV STA (19:57)
[2018-10-01] MEDS ORDERED: ONDANSETRON 4 MG/2 ML VIAL IVPUSH ONE (19:57)
[2018-10-01 20:30] LABS: BASO % 0.6 % (0-2.0); EOS % 8.6 % (0-4.5); HEMATOCRIT 42.9 % (32.4-45.2); HEMOGLOBIN 14.5 GM/dL (10.7-15.3); LYMPH % 19.8 % (8-40); MCH 30.1 pg (25.7-33.7); MCHC 33.8 g/dl (32.0-36.0); MEAN CELL VOLUME 89.2 fl (80-96); MEAN PLT VOLUME 9.7 fl (7.5-11.1); MONO % 5.3 % (3.8-10.2); NEUT % 65.7 % (42.8-82.8); PLATELET COUNT 229 K/MM3 (134-434); RBC 4.81 M/mm3 (3.60-5.2); RDW 15.6 % (11.6-15.6); WHITE BLOOD COUNT 7.6 K/mm3 (4.0-10.0)
--- NOTE | 2018-10-01 20:46 | PDOC ---
History of Present Illness - General Chief Complaint: Nausea/Vomiting Stated Complaint: PAIN Time Seen by Provider: 10/01/18 17:26 History Source: Patient Exam Limitations: No Limitations - History of Present Illness Initial Comments: 10/01/18 23:54 Ms. tSroud is a 43 yo F with a hx of an ileal conduit (urostomy bag placed 13 yrs ago), hx of recurrent nephrolithiasis, and recent UTI (finished abx 3 days ago; pt does not know which type) present to the emergency department with left flank pain that radiates to the LLQ and with foul smelling urine for the past two days. She has tried tylenol without relief achieved. Per the patient, this pain is similar to her nephrolithiasis events. She states she has been having pain at her urostomy bag site for the past 2 days that radiates to the right hip. She endorses the following: hematuria, vomiting (non-hematemesis), and fevers/chills. Patient denies the following: recent visual changes, headaches, chest pain, SOB, diarrhea, hematochezia, and melena. Pmhx: Refer to above Shx: stone blockage 1 yr ago. Urostomy placement 13 yrs ago Meds: None Allergies: NKDA Social hx: Endorses tobacco use, denies ETO and substance abuse. 10/01/18 23:59 10/02/18 00:05 Past History - Past Medical History Allergies/Adverse Reactions: Allergies Allergy/AdvReac Type Severity Reaction Status Date / Time No Known Allergies Allergy Verified 10/01/18 17:28 Home Medications: Ambulatory Orders NK [No Known Home Medication] 10/01/18 Anemia: Yes Asthma: No Cancer: No Cardiac Disorders: No CVA: No COPD: No CHF: No Dementia: No Diabetes: No GI Disorders: No Disorders: Yes (Ileal Conduit, H/O KIDNEY STONES) HTN: No Hypercholesterolemia: No Kidney Stones: Yes (kidney failure) Liver Disease: No Seizures: No Thyroid Disease: No - Surgical History Abdominal Surgery: No Appendectomy: No Cardiac Surgery: No Cholecystectomy: No Lung Surgery: No Neurologic Surgery: No Orthopedic Surgery: No - Reproductive History (#): 0 Para: 0 - Immunization History Immunization Up to Date: Yes - Suicide/Smoking/Psychosocial Hx Smoking Status: No Smoking History: Current some day smoker Have you smoked in the past 12 months: No Number of Cigarettes Smoked Daily: 4 Cigars Per Day: 0 Information on smoking cessation initiated: No 'Breaking Loose' booklet given: 09/03/18 Hx Alcohol Use: No Drug/Substance Use Hx: No Substance Use Type: None Hx Substance Use Treatment: No Review of Systems - Review of Systems Able to Perform ROS?: Yes Is the patient limited Kyrgyz proficient: No Constitutional: Yes: Chills, Fever. No: Diaphoresis, Weakness HEENTM: No: Recent change in vision, Nose Pain, Throat Pain, Mouth Pain Respiratory: No: Shortness of Breath Cardiac (ROS): No: Chest Pain ABD/GI: Yes: Nausea, Vomiting, Abdominal cramping. No: Constipated, Diarrhea, Rectal Bleeding, Tarry Stools : No: Burning, Dysuria, Hematuria Musculoskeletal: Yes: Back Pain (left flank) Integumentary: No: Rash Neurological: No: Headache Endocrine: No: Unexplained Weight Gain Hematologic/Lymphatic: No: Anemia *Physical Exam - Vital Signs Last Vital Signs Temp Pulse Resp BP Pulse Ox 98.4 F 80 18 129/98 99 10/01/18 17:29 10/01/18 17:29 10/01/18 17:29 10/01/18 17:29 10/01/18 17:29 - Physical Exam General Appearance: Yes: Nourished, Appropriately Dressed. No: Apparent Distress HEENT: positive: EOMI, VIV, Normal Voice, Pharynx Normal Neck: positive: Trachea midline. negative: Lymphadenopathy (R), Lymphadenopathy (L) Respiratory/Chest: positive: Lungs Clear, Normal Breath Sounds. negative: Chest Tender, Respiratory Distress, Accessory Muscle Use Cardiovascular: positive: Regular Rhythm, Regular Rate, S1, S2. negative: Systolic Murmur Gastrointestinal/Abdominal: positive: Normal Bowel Sounds, Tender (RLQ), Other ( urostomy bag present with cloudy urine. no inflammation or discharge at urostomy site. ) Lymphatic: negative: Adenopathy Musculoskeletal: positive: Normal Inspection, CVA Tenderness (L), Other ( nephrostomy tube scars bilaterally). negative: CVA Tenderness (R) Extremity: positive: Normal Capillary Refill, Normal Inspection, Normal Range of Motion. 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 NML intact, Fully Oriented, Alert, Normal Mood/ Affect, Motor Strength 03/24 ED Treatment Course - LABORATORY CBC & Chemistry Diagram: 10/01/18 20:00 10/01/18 20:00 - ADDITIONAL ORDERS Additional order review: Laboratory Results 10/01/18 10/01/18 20:30 17:45 Beta HCG, Quant Cancelled Urine Color Yellow Urine Appearance Slcloudy Urine pH 7.0 Ur Specific [place] 1.011 Urine Protein 2+ H Urine Glucose (UA) Negative Urine Ketones Negative Urine Blood 1+ H Urine Nitrite Negative Urine Bilirubin Negative Urine Urobilinogen Negative Ur Leukocyte Esterase 3+ H D Urine WBC (Auto) 48 Urine RBC (Auto) 16 Ur Epithelial Cells Rare Urine Bacteria Rare Hyaline Casts 1 10/01/18 20:00 RBC 4.81 MCV 89.2 MCHC 33.8 RDW 15.6 MPV 9.7 Neutrophils % 65.7 Lymphocytes % 19.8 Monocytes % 5.3 Eosinophils % 8.6 H Basophils % 0.6 Medical Decision Making - Medical Decision Making 10/02/18 00:05 Ms. Stroud is a 43 yo F with a hx of an ileal conduit (urostomy bag placed 13 yrs ago), hx of recurrent nephrolithiasis, and recent UTI (finished abx 3 days ago; pt does not know which type) present to the emergency department with left flank pain that radiates to the LLQ and with foul smelling urine for the past two days. Initial vitals: Initial Vital Signs Temp Pulse Resp BP Pulse Ox 98.4 F 80 18 129/98 99 10/01/18 17:29 10/01/18 17:29 10/01/18 17:29 10/01/18 17:29 10/01/18 17:29 Work up: ddx: nephrolithiasis (obstruction), UTI, pyelonephritis, SBO cbc, cmp, ua, ucx, ct abdomen/pelvis without contrast, NS 1 liter, 1 gram of acetaminophen for pain control. Laboratory Tests 10/01/18 10/01/18 10/01/18 17:45 20:00 20:00 WBC 7.6 RBC 4.81 Hgb 14.5 Hct 42.9 MCV 89.2 MCH 30.1 MCHC 33.8 RDW 15.6 Plt Count 229 MPV 9.7 Absolute Neuts (auto) 5.0 Neutrophils % 65.7 Lymphocytes % 19.8 Monocytes % 5.3 Eosinophils % 8.6 H Basophils % 0.6 Nucleated RBC % 0 Sodium 143 Potassium 4.4 Chloride 112 H Carbon Dioxide 22 Anion Gap 10 BUN 23 H Creatinine 1.9 H Creat Clearance w eGFR 28.72 Random Glucose 100 Calcium 8.5 Total Bilirubin 0.3 AST 18 ALT 19 Alkaline Phosphatase 74 Total Protein 7.1 Albumin 3.3 L Beta HCG, Quant 1.2 Urine Color Yellow Urine Appearance Slcloudy Urine pH 7.0 Ur Specific [place] 1.011 Urine Protein 2+ H Urine Glucose (UA) Negative Urine Ketones Negative Urine Blood 1+ H Urine Nitrite Negative Urine Bilirubin Negative Urine Urobilinogen Negative Ur Leukocyte Esterase 3+ H D Urine WBC (Auto) 48 Urine RBC (Auto) 16 Ur Epithelial Cells Rare Urine Bacteria Rare Hyaline Casts 1 10/01/18 20:30 WBC RBC Hgb Hct MCV MCH MCHC RDW Plt Count MPV Absolute Neuts (auto) Neutrophils % Lymphocytes % Monocytes % Eosinophils % Basophils % Nucleated RBC % Sodium Potassium Chloride Carbon Dioxide Anion Gap BUN Creatinine Creat Clearance w eGFR Random Glucose Calcium Total Bilirubin AST ALT Alkaline Phosphatase Total Protein Albumin Beta HCG, Quant Cancelled Urine Color Urine Appearance Urine pH Ur Specific [place] Urine Protein Urine Glucose (UA) Urine Ketones Urine Blood Urine Nitrite Urine Bilirubin Urine Urobilinogen Ur Leukocyte Esterase Urine WBC (Auto) Urine RBC (Auto) Ur Epithelial Cells Urine Bacteria Hyaline Casts Labs were within normal limits save for UA which showed persistent UTI. The patient does not know which antibiotics she takes. She recently changed her PMD to [facility] but does not remember the name of the physician. The patient is followed by Dr. Malik Castillo. It is determined that she has a UTI that failed outpatient abx. WIll admit her and start her on zosyn as her previous cultures show sensitivity to this. Dispo: Admit *DC/Admit/Observation/Transfer Diagnosis at time of Disposition: UTI (urinary tract infection) Qualifiers: Urinary tract infection type: site unspecified Hematuria presence: without hematuria Qualified Code(s): N39.0 - Urinary tract infection, site not specified - Discharge Dispostion Decision to Admit order: Yes - Referrals - Patient Instructions - Post Discharge Activity
[2018-10-01] MEDS ORDERED: ONDANSETRON 4 MG/2 ML VIAL ONE (21:13)
[2018-10-01 21:15] LABS: ALBUMIN 3.3 g/dl (3.4-5.0); ALK PHOS 74 U/L (45-117); ANION GAP 10 MMOL/L (8-16); BILIRUBIN,TOTAL 0.3 mg/dL (0.2-1); BLOOD UREA NITROGEN 23 mg/dL (7-18); CALCIUM 8.5 mg/dL (8.5-10.1); CHLORIDE 112 mmol/L (98-107); CO2 22 mmol/L (21-32); CREATININE 1.9 mg/dL (0.55-1.3); GLUCOSE,RANDOM 100 mg/dL (74-106); POTASSIUM 4.4 mmol/L (3.5-5.1); SGOT/AST 18 U/L (15-37); SGPT/ALT 19 U/L (13-61); SODIUM 143 mmol/L (136-145); TOT PROT 7.1 g/dl (6.4-8.2)
[2018-10-01] MEDS ORDERED: ACETAMINOPHEN INJECTION 100 ML IVPB ONE (22:25)
[2018-10-01] MEDS ORDERED: PIPERACILLIN/TAZOB 2.25 GM 2.25 GM in DEXTROSE 5%-WATER - 50 ML IVPB ONE (23:40)
[2018-10-01] MEDS ORDERED: ERTAPENEM SODIUM 1 GM in SODIUM CHLORIDE 50 ML IVPB ONE (23:42)
[2018-10-02] MEDS ORDERED: morphine CARPU-JECT 4 MG/1 ML DISP.SYRIN IVPUSH ONE (00:30)
[2018-10-02] MEDS ORDERED: ERTAPENEM SODIUM 1 GM VIAL ONE (00:44)
[2018-10-02] MEDS ORDERED: MORPHINE SULFATE 10 MG/1 ML *VIAL ONE (00:44)
--- NOTE | 2018-10-02 01:39 | HP ---
CHIEF COMPLAINT: abdominal pain PCP: Dr. 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 Patient reports she has had abdominal pain for the last two days, describes it as sharp, and radiating down the right leg. Patient states she also has pain in her left flank. Patient reports she has also been vomiting with episodes of diarrhea for the last two days. Patient reports having this pain in the past and relates it to UTI's. She has taken tylenol but not found that it helps the pain. She reports she has "alot" of UTI's and has been getting them ever since with the ileal conduit. Patient reports she changes the bag every five days when it looks dirty, the most recent change being yesterday. Patients most recent UTI was in August with cultures positive for ESBL. Patient was called and told to switch her medication from Keflex to ciprofloxacin. Patient state she was also told she should not take that antibiotic in the past so she did not continue it. Patient has CKD 2/2 to kidney stones. She had nephrostomy tubes placed for the kidney stones and reports the tubes gave her UTI's. Continued complications lead to the ileal conduit and urostomy bag. Patient currently denies fevers, chills, SOB , and chest pain. Patient has also had past history of cysts removal which have also caused abdominal pain in the past. She reports she has had two cysts removed 6-7 years ago. She recently saw a new radiology special procedure tech who took blood work and urine and told her she had a UTI and that if she developed symptoms to go to the ER. She has not had a gynecological examination or imaging " in a while" . Patient also complains of R knee swelling. Reports she recently saw orthopedics and had a cortisone injection. ER course was notable for: (1) Ertopenem 1 m (2) ofirmev (3) Recent Travel: PAST MEDICAL HISTORY: UTI's and CKD 2/2 to kidney stones with urostomy bag PAST SURGICAL HISTORY: cysts removal, nephrostomy tubes, urostomy bag Social History: Smoking: current smoker Alcohol: denies Drugs: Family History: Allergies No Known Allergies Allergy (Verified 10/01/18 17:28) HOME MEDICATIONS: Home Medications Medication Instructions Recorded NK [No Known Home Medication] 10/01/18 REVIEW OF SYSTEMS CONSTITUTIONAL: Absent: fever, chills, diaphoresis, generalized weakness, malaise, loss of appetite, weight change HEENT: Absent: rhinorrhea, nasal congestion, throat pain, throat swelling, difficulty swallowing, mouth swelling, ear pain, eye pain, visual changes CARDIOVASCULAR: Absent: chest pain, syncope, palpitations, irregular heart rate, lightheadedness , peripheral edema RESPIRATORY: Absent: cough, shortness of breath, dyspnea with exertion, orthopnea, wheezing, stridor, hemoptysis GASTROINTESTINAL: abdominal pain, Absent: abdominal distension, nausea, vomiting, diarrhea, constipation, melena, hematochezia GENITOURINARY: Absent: dysuria, frequency, urgency, hesitancy, hematuria, flank pain, genital pain MUSCULOSKELETAL: Absent: myalgia, arthralgia, joint swelling, back pain, neck pain SKIN: Absent: rash, itching, pallor HEMATOLOGIC/IMMUNOLOGIC: Absent: easy bleeding, easy bruising, lymphadenopathy, frequent infections ENDOCRINE: Absent: unexplained weight gain, unexplained weight loss, heat intolerance, cold intolerance NEUROLOGIC: Absent: headache, focal weakness or paresthesias, dizziness, unsteady gait, seizure, mental status changes, bladder or bowel incontinence PSYCHIATRIC: Absent: anxiety, depression, suicidal or homicidal ideation, hallucinations. PHYSICAL EXAMINATION Vital Signs - 24 hr 10/01/18 17:29 Temperature 98.4 F Pulse Rate 80 Respiratory 18 Rate Blood Pressure 129/98 O2 Sat by Pulse 99 Oximetry (%) GENERAL: Awake, alert, and fully oriented, in no acute distress. HEAD: Normal with no signs of trauma. EYES: Pupils equal, round and reactive to light, extraocular movements intact EARS, NOSE, THROAT: Moist mucous membranes. LUNGS: Breath sounds equal, clear to auscultation bilaterally. No wheezes, and no crackles. No accessory muscle use. HEART: Regular rate and rhythm, normal S1 and S2 without murmur, rub or gallop. ABDOMEN: Soft, nontender, not distended, normoactive bowel sounds, urostomy bag at R quadrant MUSCULOSKELETAL: CVA tenderness L side LOWER EXTREMITIES: 2+ pulses, warm, well-perfused. No calf tenderness. No peripheral edema. NEUROLOGICAL: Normal speech. Normal gait. PSYCHIATRIC: Cooperative. Good eye contact. Appropriate mood and affect. SKIN: Warm, dry, normal turgor, no rashes or lesions noted, normal capillary refill. Laboratory Results - last 24 hr CBC, BMP 10/01/18 20:00 10/01/18 20:00 Urine Test Results Urine Color Yellow 10/01/18 17:45 Urine Appearance Slcloudy 10/01/18 17:45 Urine pH 7.0 (5.0-8.0) 10/01/18 17:45 Ur Specific [place] 1.011 (1.010-1.035) 10/01/18 17:45 Urine Protein 2+ (NEGATIVE) H 10/01/18 17:45 Urine Glucose (UA) Negative (NEGATIVE) 10/01/18 17:45 Urine Ketones Negative (NEGATIVE) 10/01/18 17:45 Urine Blood 1+ (NEGATIVE) H 10/01/18 17:45 Urine Nitrite Negative (NEGATIVE) 10/01/18 17:45 Urine Bilirubin Negative (<2.0 mg/dL) 10/01/18 17:45 Ur Leukocyte Esterase 3+ (NEGATIVE) H D 10/01/18 17:45 Ur Epithelial Cells Rare /HPF (FEW) 10/01/18 17:45 Urine Bacteria Rare /hpf (NONE SEEN) 10/01/18 17:45 ASSESSMENT/PLAN: Patient is a 43 y/o female with a history of UTI's and CKD 2/2 to kidney stones with urostomy bag who presents for abdominal pain. #UTI likely Pyelonephritis - Patient has extensive history of UTI, most recent 09/05 for ESBL, may not have completed treatment - Begin Ertapenem 1 gm daily - f/u Dr. Mercado for ID - f/u Dr. Castillo for - ABD/pelvis CT: slightly increased left hydronephrosis, mild right hydronephrosis, bilateral nephrostomy tube tracts, nonobstructing 4mm right renal calculus, large approximately 8 x 6 cm right posterior adnexal nonspecific cystic structure, - NS @ 42 #nausea and diarrhea - f/u cdiff and lactoferrin - recent antibiotic use #adnexal cyst - f/u pottery striper consult - imaging showed 6x8 at right adnexal - hx of cyst removal #osteoarthritis - patient follows with ortho as an out patient #CKD - Cr: 1.9, at patients baseline Visit type - Emergency Visit Emergency Visit: Yes ED Registration Date: 10/01/18 Care time: The patient presented to the Emergency Department on the above date and was hospitalized for further evaluation of their emergent condition. - New Patient This patient is new to me today: Yes Date on this admission: 10/02/18 - Critical Care Critical Care patient: No
--- NOTE | 2018-10-02 03:10 | PN ---
Teaching Attending Note Name of Resident: Cristel Goff ATTENDING PHYSICIAN STATEMENT I saw and evaluated the patient. I reviewed the resident's note and discussed the case with the resident. I agree with the resident's findings and plan as documented. SUBJECTIVE: Seen and examined; further history can be obtained through resident note. She is a 43 y/o AAF with a PMH significant for urological issues with renal stones leading to CKD and known b/l hydronephross and is s/p b/l nephrostomy who eventually ended up converted to ileal conduit ([facility] 2006) who gets frequent UTIs. She used to be a patient of Dr. Mynor Castillo but due to issues with insurance paying for orthopedic sgy referral for OA related knee pain she has now switched to [facility] and will thus be on our service. She recently switched urologists and now is seeing Dr. Castillo in uro to see if the conduit can be reversed. She presents today with a CC of L-flank pain after being diagnosed with a UTI several days ago by co teacher. She did not complete her OP abx and developed the pain so she came to the ER. Review of that culture shows ESBL + E. Coli sensitive to meropenem. She will need to be seen by ID and started on appropriate abx threapy. She has also been having some associated nausea and vomitting. She had several episodes of diarrhea (and did take some PO abx as stated). Should note that she does her own urostomy care and changed bag 1- 2 days prior to presentation. She has seen Dr. Mercado in the past for abx management and thus he will be consulted. 10 sys ROS done and negative aside from above PMH/PSH reviewed and are as per chart Social hx patient smokes 1/4 PPD and is precontemplative, denies EtOH FH asked and noncontributory OBJECTIVE: VS, labs, and imaging all reviewed; afebrile and hemodynamically stable NAD, AAO, resting in chair and appears comfortable L-sided mild to moderate pain to fist percussion at CVA; urostomy bag intact with good hygeine and filled with clear yellow urine. NT ND +BS Tattoos scattered; no rashes, no breakdown RRR s1/2 no mgr CN2-12 grossly intact, no fnd Afebrile, normal BP and HR CT abd/pelvis reviewed; shows b/l hydronephrosis with some interval worsening on the L side, air in ileal conduit region consistent with bag change vs. emphysematous infection, diverticulosis, cholelithiasis without -itis, 4mm R- sided non-obstructing renal stone, and 8x6cm cystic adenexal mass increased in size for which radiology recommended [facility]CEL[facility] WAXER consultation. Eosinophils remain elevated (have been up since 2015) but no WBC count. Cr 1.9 which is at baseline (1.7-2.3), Albumin low in the 3-range. Lexiscan from earlier this year reviewed; no ischemia and normal EF ASSESSMENT AND PLAN: Mrs. Stroud is a 43 y/o female presenting with left flank pain known to have an ESBL+ urine cx; she has a history of colonization with ESBL+ organisms. She is clinically stable and will require ID consultation. 1) ESBL+ UCx with L-flank pain -Suspicious for pyelo; however must consider no imaging changes to suggest inflammation, no white count, no fever. -Grew out ESBL klebsiella in june; has had repeated UTIs requiring array of abx. Pt. of Dr. Mercado so will consult him and cover with Camila in the interem -Check blood cultures -Followup with urology; her procedure puts her at risk for this and aparently she is in talks with uro to see if the conduit can be reversed? Will reach out to their service 2) Bilateral hydronephrosis -L>R with L increase in size since last imaging study. -Followup with urology; should note her conduit is functioning 3) Renal Stone -4mm right stone seen; should be able to pass on its own. Monitor and control sx PRN 4) Nausea/Vomitting/Diarrhea -May be due to the sx from UTI, but given her repeat hospitalizations alongside abx use history will at least check a CDiff and a lactoferrin to r/o infectious etiology. If negative can manage symptomatically. CT findings discussed 5) Cystic Structure posterior to ovary -Increased in size to 6x8; radiology recommended co teacher consult so will place and followup. Ddx is broad; will monitor. 6) Diverticulosis -No signs of acute infection; incidental finding on CT 7) Cholelithiasis -No infection; incidental finding on CT 8) Osteoarthritis -Follows with orthopedics for joint injections; recommend continued OP followup. Manage any sx here PRN. 9) Hypoalbuminemia -Consider checking prealbumin in AM and nutritional supplementation if indicated 10) Umbilical Hernia -Seen on exam and confirmed on CT; old finding and non-incarcerated 11) CKD-IV -At baseline; trend BMP and monitor output 12) S/P Urostomy with Ileal Conduit -Followup with urology Full Code FENA -No IVF needed -Monitor and replace PRN -Regular Diet -As tolerated Consultants: ID, Urology Full Code
[2018-10-02 07:28] LABS: BASO % 0.5 % (0-2.0); EOS % 8.4 % (0-4.5); HEMATOCRIT 40.6 % (32.4-45.2); HEMOGLOBIN 13.2 GM/dL (10.7-15.3); LYMPH % 20.4 % (8-40); MCH 29.4 pg (25.7-33.7); MCHC 32.6 g/dl (32.0-36.0); MEAN PLT VOLUME 8.9 fl (7.5-11.1); MONO % 6.4 % (3.8-10.2); NEUT % 64.3 % (42.8-82.8); PLATELET COUNT 183 K/MM3 (134-434); RBC 4.51 M/mm3 (3.60-5.2); RDW 15.4 % (11.6-15.6); WHITE BLOOD COUNT 7.8 K/mm3 (4.0-10.0)
[2018-10-02 08:25] LABS: ALK PHOS 67 U/L (45-117); ANION GAP 6 MMOL/L (8-16); BILIRUBIN,TOTAL 0.4 mg/dL (0.2-1); BLOOD UREA NITROGEN 20 mg/dL (7-18); CALCIUM 7.9 mg/dL (8.5-10.1); CHLORIDE 113 mmol/L (98-107); CO2 22 mmol/L (21-32); CREATININE 1.7 mg/dL (0.55-1.3); GLUCOSE,RANDOM 80 mg/dL (74-106); POTASSIUM 4.1 mmol/L (3.5-5.1); SGOT/AST 16 U/L (15-37); SGPT/ALT 17 U/L (13-61); SODIUM 141 mmol/L (136-145); TOT PROT 6.2 g/dl (6.4-8.2)
[2018-10-02] MEDS ORDERED: METOCLOPRAMIDE HCL INJECTION 10 MG/2 ML VIAL IVPUSH ONE (08:28)
[2018-10-02] MEDS ORDERED: ACETAMINOPHEN 1000 MG/100 ML VIAL (NON FORMULARY) IVPB ONE (08:28)
[2018-10-02] MEDS ORDERED: METOCLOPRAMIDE HCL INJECTION 10 MG/2 ML VIAL ONE (08:38)
[2018-10-02] MEDS ORDERED: ACETAMINOPHEN INJECTION 100 ML IVPB ONE (08:38)
[2018-10-02] MEDS: SODIUM CHLORIDE 1,000 ML IV SCH ×2 (08:43→19:33)
[2018-10-02] MEDS ORDERED: MORPHINE SULFATE 2 MG/ML VIAL IVPUSH ONE (09:03)
[2018-10-02] MEDS ORDERED: MORPHINE SULFATE 2 MG/ML VIAL ONE (09:49)
[2018-10-02] MEDS ORDERED: PT OWN MED DRAWER 7, Y5N ONE ×3 (11:44→22:08)
[2018-10-02] MEDS: LACTOBACILLUS ACIDOPHILUS 1 TABLET PO SCH (11:55)
--- NOTE | 2018-10-02 12:03 | PN ---
Physical Exam: SUBJECTIVE: Patient seen and examined at bedside. she states that she is still having a lot of pain, however, this is her typical pain that she usually experiences when she is having a UTI so she is used to it. However, she is no longer experiencing anymore episodes of vomiting or diarrhea. She denies any CP/ SOB/headaches or dizziness. OBJECTIVE: Vital Signs Period Temp Pulse Resp BP Sys/Minor Pulse Ox Last 24 Hr 98.4 F-98.6 F 51-80 16-18 129-141/89-98 96-99 GENERAL: The patient is awake, alert, in distress. EYES:no scleral icterus. NECK: no JVD, no lymphadenopathy LUNGS: coarse breath sounds with wheezing B/L HEART: Regular rate and rhythm, S1, S2 without murmur, rub or gallop. ABDOMEN: RLQ urostomy bag in place; RLQ tenderness; soft; non-distended +BS in all 4 quadrants MUSCULOSKELETAL: + L sided CVA tenderness EXTREMITIES: 2+ pulses, warm, well-perfused, no edema. PSYCH: Normal mood, normal affect. SKIN: Warm, dry, normal turgor, no rashes or lesions noted Laboratory Results - last 24 hr 10/01/18 10/01/18 10/01/18 17:45 20:00 20:00 WBC 7.6 RBC 4.81 Hgb 14.5 Hct 42.9 MCV 89.2 MCH 30.1 MCHC 33.8 RDW 15.6 Plt Count 229 MPV 9.7 Absolute Neuts (auto) 5.0 Neutrophils % 65.7 Lymphocytes % 19.8 Monocytes % 5.3 Eosinophils % 8.6 H Basophils % 0.6 Nucleated RBC % 0 Sodium 143 Potassium 4.4 Chloride 112 H Carbon Dioxide 22 Anion Gap 10 BUN 23 H Creatinine 1.9 H Creat Clearance w eGFR 28.72 Random Glucose 100 Calcium 8.5 Total Bilirubin 0.3 AST 18 ALT 19 Alkaline Phosphatase 74 Total Protein 7.1 Albumin 3.3 L Beta HCG, Quant 1.2 Urine Color Yellow Urine Appearance Slcloudy Urine pH 7.0 Ur Specific [place] 1.011 Urine Protein 2+ H Urine Glucose (UA) Negative Urine Ketones Negative Urine Blood 1+ H Urine Nitrite Negative Urine Bilirubin Negative Urine Urobilinogen Negative Ur Leukocyte Esterase 3+ H D Urine WBC (Auto) 48 Urine RBC (Auto) 16 Ur Epithelial Cells Rare Urine Bacteria Rare Hyaline Casts 1 10/01/18 10/02/18 10/02/18 20:30 07:10 07:10 WBC 7.8 RBC 4.51 Hgb 13.2 Hct 40.6 MCV 90.0 MCH 29.4 MCHC 32.6 RDW 15.4 Plt Count 183 D MPV 8.9 Absolute Neuts (auto) 5.0 Neutrophils % 64.3 Lymphocytes % 20.4 Monocytes % 6.4 Eosinophils % 8.4 H Basophils % 0.5 Nucleated RBC % 0 Sodium 141 Potassium 4.1 Chloride 113 H Carbon Dioxide 22 Anion Gap 6 L BUN 20 H Creatinine 1.7 H Creat Clearance w eGFR 32.65 Random Glucose 80 Calcium 7.9 L Total Bilirubin 0.4 AST 16 ALT 17 Alkaline Phosphatase 67 Total Protein 6.2 L Albumin 3.0 L Beta HCG, Quant Cancelled Urine Color Urine Appearance Urine pH Ur Specific [place] Urine Protein Urine Glucose (UA) Urine Ketones Urine Blood Urine Nitrite Urine Bilirubin Urine Urobilinogen Ur Leukocyte Esterase Urine WBC (Auto) Urine RBC (Auto) Ur Epithelial Cells Urine Bacteria Hyaline Casts Active Medications Generic Name Dose Route Start Last Admin Trade Name Freq PRN Reason Stop Dose Admin Sodium Chloride 1,000 mls @ 42 mls/hr 10/02/18 03:15 10/02/18 08:43 Normal Saline - IV 42 mls/hr ASDIR PATRICK Administration Ertapenem 1 gm/ Sodium 50 mls @ 50 mls/hr 10/02/18 22:00 Chloride IVPB DAILY@2200 [facility] Protocol Lactobacillus Acidophilus 1 tab 10/02/18 10:15 Bacid - PO DAILY [facility] ASSESSMENT/PLAN: 43 y/o female with PMH of CKD 2/2 kidney stones requiring urostomy bag, multiple UTIS's in the past presents to the ED with left flank and abdominal pain. #UTI - Patient has extensive history of UTI, most recent 09/05 for ESBL, may not have completed treatment - Begin Ertapenem 1 gm daily - f/u Dr. Mercado for ID - f/u Dr. Castillo for - was supposed to see him last week but had to reschedule - ABD/pelvis CT: slightly increased left hydronephrosis, mild right hydronephrosis, bilateral nephrostomy tube tracts, nonobstructing 4mm right renal calculus, large approximately 8 x 6 cm right posterior adnexal nonspecific cystic structure, - NS @ 42 #nausea and diarrhea - f/u cdiff and lactoferrin - recent antibiotic use -started patient on Bacid #adnexal cyst - f/u with liquefaction plant operator as an outpatient - imaging showed 6x8 at right adnexal - hx of cyst removal #osteoarthritis - patient follows with ortho as an out patient #CKD - Cr: 1.9, at patients baseline; 2./2 kidney stones DVT PPX: SCDS F/E/N NS @42 mls/hr monitor electrolytes; replete when necessary regular diet Problem List - Problems (1) UTI (urinary tract infection) Code(s): N39.0 - URINARY TRACT INFECTION, SITE NOT SPECIFIED Qualifiers: Urinary tract infection type: site unspecified Hematuria presence: without hematuria Qualified Code(s): N39.0 - Urinary tract infection, site not specified (2) Abdominal pain Code(s): R10.9 - UNSPECIFIED ABDOMINAL PAIN Qualifiers: Abdominal location: generalized Qualified Code(s): R10.84 - Generalized abdominal pain Visit type - Emergency Visit Emergency Visit: Yes ED Registration Date: 10/01/18 Care time: The patient presented to the Emergency Department on the above date and was hospitalized for further evaluation of their emergent condition. - New Patient This patient is new to me today: Yes Date on this admission: 10/02/18 - Critical Care Critical Care patient: No
--- NOTE | 2018-10-02 12:30 | CON.ID ---
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 Patient reports she has had abdominal pain for the last two days, describes it as sharp, and radiating down the right leg. Patient states she also has pain in her left flank. patient known to me from multiple previous admissions and has been treated for multiple utis patient has had past h/o of esbl bacteria - History Source History Provided By: Patient Limitations to Obtaining History: No Limitations - Past Medical History Gastrointestinal: Yes: Hiatal Hernia, Other (ileal conduit; umbilical incisional hernia) Hepatobiliary: Yes: Cholelithiasis Renal/: Yes: Renal Inusuff (s/p urinary diversion, bilateral nephrostomies converted to ileal conduit ~2006 [facility]), Renal Calculi, UTI ...LMP: 05/05/18 Psych: Yes: Anxiety, Depression Endocrine: Yes: Other (prior abnormal TFTs) - Past Surgical History Past Surgical History: Yes: Cystectomy, Ileal Conduit - Alcohol/Substance Use Hx Alcohol Use: No History of Substance Use: reports: Marijuana (daily) Date of Last Use: 05/09/18 - Smoking History Smoking history: Current some day smoker Have you smoked in the past 12 months: No Aproximately how many cigarettes per day: 4 - Social History Usual Living Arrangement: Alone ADL: Independent History of Recent Travel: No Home Medications - Allergies Allergies/Adverse Reactions: Allergies Allergy/AdvReac Type Severity Reaction Status Date / Time No Known Allergies Allergy Verified 10/01/18 17:28 - Home Medications Home Medications: Ambulatory Orders Oxycodone HCl [Oxycodone HCl ER] 30 mg PO Q6H PRN 10/02/18 Family Disease History - Family Disease History Family Disease History: CA: Mother, Respiratory: Mother Review of Systems - Review of Systems Constitutional: reports: No Symptoms Eyes: reports: No Symptoms HENT: reports: No Symptoms Neck: reports: No Symptoms Cardiovascular: reports: No Symptoms Respiratory: reports: No Symptoms Gastrointestinal: reports: No Symptoms Genitourinary: reports: Flank Pain Musculoskeletal: reports: No Symptoms Integumentary: reports: No Symptoms Neurological: reports: No Symptoms Endocrine: reports: No Symptoms Hematology/Lymphatic: reports: No Symptoms Psychiatric: reports: No Symptoms Physical Exam Vital Signs: Vital Signs Temperature 98.6 F 10/02/18 10:09 Pulse Rate 51 L 10/02/18 09:09 Respiratory Rate 16 10/02/18 09:09 Blood Pressure 141/89 10/02/18 09:09 O2 Sat by Pulse Oximetry (%) 96 10/02/18 09:09 Constitutional: Yes: Well Nourished, No Distress, Calm Cardiovascular: Yes: Regular Rate and Rhythm Respiratory: Yes: Regular, CTA Bilaterally Gastrointestinal: Yes: Normal Bowel Sounds, Soft Renal/: Yes: CVA Tenderness - Left Musculoskeletal: Yes: WNL Extremities: Yes: WNL Neurological: Yes: Alert, Oriented Psychiatric: Yes: Alert, Oriented Labs: CBC, BMP 10/02/18 07:10 10/02/18 07:10 Imaging - Results Cat Scan: Report Reviewed, Image Reviewed Assessment/Plan uti pyelo obesity plan will start patient on ceftriaxone await for all cx reports if patiss pain increases will switch to zosyn rest as per the team
--- NOTE | 2018-10-02 13:43 | PN ---
Teaching Attending Note Name of Resident: Lisa Molina ATTENDING PHYSICIAN STATEMENT I saw and evaluated the patient. I reviewed the resident's note and discussed the case with the resident. I agree with the resident's findings and plan as documented. SUBJECTIVE:L flank pain has improved. was radiating to the thigh. has been having increase output into bag. subjective chills at home but none here. denies Cp, SOB, fever, chills, N/V/C/D OBJECTIVE: Last Vital Signs Temp Pulse Resp BP Pulse Ox 98.5 F 60 16 132/93 95 10/02/18 13:02 10/02/18 13:02 10/02/18 13:02 10/02/18 13:02 10/02/18 13:02 General NAd CV S1 S2 RRR no murmur/rub/gallop Lungs CTA B/L No wheezing/rales/rhonchi Abdomen soft NT/ND +urostomy with clear yellow urine obese ASSESSMENT AND PLAN: 43yo F wtih PMH nephrotlithasis, CKD, OA, Hx of nephrostomy tubes with internalization and urostomy with frequent UTI presented to the ER with L flank pain and found to have UTI 1. UTI- hx of ESBL Klebsiella in August 2018, was seen in the ER and d/c on keflex. will start on ertapenem based on sensitivities from last Ucx. f/u Cx here. contact precautions. ID consulted. 2. B/L hydronephrosis- L>R with L appearing worse than previous imaging. states she is in middle of evaluation from urology for reversal of urostomy. Urology consulted 3. Adnexal cyst- has hx of cyst. prototype deicer assembler consulted. can likely follow up as outpatient. will hold further imaging at this time 4. Diarrhea- no episodes since here. likely abx assoc diarrhea. start bacid. check stools for cdiff 5. CKD- stable at baseline 6. OA 7. nephrolithasis- small renal stone seen. will likely pass on its on 8. DVT ppx- start hep sq
[2018-10-02] MEDS: HEPARIN NA (PORCINE) 5,000 UNITS/ML 1ML VIAL SQ SCH ×2 (14:11→22:12)
[2018-10-02] MEDS ORDERED: ACETAMINOPHEN 325 MG TABLET (FP) PO PRN (15:54)
[2018-10-02 17:52] VITALS: BMI 38.1
[2018-10-02] MEDS ORDERED: traMADol HCL 50 MG TABLET PO ONE (21:23)
[2018-10-02] MEDS ORDERED: ERTAPENEM SODIUM 1 GM in SODIUM CHLORIDE 50 ML IVPB SCH (22:00)
[2018-10-02] MEDS ORDERED: ONDANSETRON 4 MG/2 ML VIAL IVPB ONE (23:59)
[2018-10-03] MEDS: HEPARIN NA (PORCINE) 5,000 UNITS/ML 1ML VIAL SQ SCH ×3 (06:19→21:42)
[2018-10-03] MEDS: SODIUM CHLORIDE 1,000 ML IV SCH (06:19)
[2018-10-03 07:24] LABS: HEMOGLOBIN 14.2 GM/dL (10.7-15.3); MCHC 33.9 g/dl (32.0-36.0); MEAN CELL VOLUME 88.5 fl (80-96); MEAN PLT VOLUME 9.2 fl (7.5-11.1); PLATELET COUNT 204 K/MM3 (134-434); RBC 4.75 M/mm3 (3.60-5.2); RDW 15.4 % (11.6-15.6); WHITE BLOOD COUNT 6.5 K/mm3 (4.0-10.0)
[2018-10-03] MEDS: MORPHINE SULFATE 2 MG/ML VIAL IVPUSH PRN ×3 (07:54→21:41)
[2018-10-03 08:29] LABS: ANION GAP 4 MMOL/L (8-16); BLOOD UREA NITROGEN 13 mg/dL (7-18); CALCIUM 8.6 mg/dL (8.5-10.1); CHLORIDE 111 mmol/L (98-107); CO2 25 mmol/L (21-32); CREATININE 1.6 mg/dL (0.55-1.3); GLUCOSE,RANDOM 81 mg/dL (74-106); POTASSIUM 4.4 mmol/L (3.5-5.1); SODIUM 140 mmol/L (136-145)
--- NOTE | 2018-10-03 08:53 | PN ---
Physical Exam: SUBJECTIVE: Patient seen and examined at bedside. patient was in a lot of pain overnight, was given tramadol, and proceeded to vomit for hours straight throughout the night. this morning she was still having slight nausea but the zofran was helping her and she said her pain was about a 4/10 but overnight it reached a 9/10- she denies any CP/SOB/or fevers- she is still having loose bowel movements but they are not as frequent and watery as they had been over the past couple of days. OBJECTIVE: Vital Signs Period Temp Pulse Resp BP Sys/Minor Pulse Ox Last 24 Hr 98 F-98.6 F 51-60 16-18 110-153/68-94 95-98 GENERAL: The patient is awake, alert, and fully oriented, in slight acute distress. EYES:no scleral icterus,. NECK: no JVD, no lymphadenopathy LUNGS: CTA B/L; no rales, rhonchi or wheezing HEART: Regular rate and rhythm, S1, S2 without murmur, rub or gallop. ABDOMEN: Soft, RLQ tenderness below where the urostomy bag is in place- radiating to the right thigh; non-distended, +BS in all 4 quadrants MUSCULOSKELETAL: + L sided CVA tenderness EXTREMITIES: 2+ pulses, warm, well-perfused, no edema. PSYCH: Normal mood, normal affect. SKIN: Warm, dry, normal turgor, no rashes or lesions noted Laboratory Results - last 24 hr 10/03/18 10/03/18 06:00 06:00 WBC 6.5 RBC 4.75 Hgb 14.2 Hct 42.0 MCV 88.5 MCH 30.0 MCHC 33.9 RDW 15.4 Plt Count 204 MPV 9.2 Sodium 140 Potassium 4.4 Chloride 111 H Carbon Dioxide 25 Anion Gap 4 L BUN 13 Creatinine 1.6 H Creat Clearance w eGFR 35.02 Random Glucose 81 Calcium 8.6 Active Medications Generic Name Dose Route Start Last Admin Trade Name Freq PRN Reason Stop Dose Admin Acetaminophen 650 mg 10/02/18 15:54 Tylenol - PO Q6H PRN PAIN 4-6 Heparin Sodium (Porcine) 5,000 unit 10/02/18 14:00 10/03/18 06:19 Heparin - SQ Not Given TID PATRICK Ertapenem 1 gm/ Sodium 50 mls @ 50 mls/hr 10/02/18 22:00 10/02/18 22:41 Chloride IVPB 50 mls/hr DAILY@2200 PATRICK Administration Protocol Ceftriaxone Sodium 1 gm/ 50 mls @ 100 mls/hr 10/03/18 10:00 Dextrose IVPB DAILY PATRICK Protocol Lactobacillus Acidophilus 1 tab 10/02/18 10:15 10/02/18 11:55 Bacid - PO 1 tab DAILY PATRICK Administration Morphine Sulfate 2 mg 10/03/18 07:28 10/03/18 07:54 Morphine Sulfate IVPUSH 2 mg Q6H PRN Administration PAIN LEVEL 6-10 ASSESSMENT/PLAN: 43 y/o female with PMH of CKD 2/2 kidney stones requiring urostomy bag, multiple UTIS's in the past presents to the ED with left flank and abdominal pain. #UTI - Patient has extensive history of UTI, most recent 09/05 for ESBL, may not have completed treatment - Begin Ertapenem 1 gm daily; Dr. Mercado added 1 gram Ceftriaxone daily - f/u Dr. Castillo for - was supposed to see him last week but had to reschedule -f/u urine cx - ABD/pelvis CT: slightly increased left hydronephrosis, mild right hydronephrosis, bilateral nephrostomy tube tracts, nonobstructing 4mm right renal calculus, large approximately 8 x 6 cm right posterior adnexal nonspecific cystic structure, - NS @ 42 #nausea and diarrhea - f/u cdiff and lactoferrin - recent antibiotic use -started patient on Bacid -zofran PRN for nausea; check QTC #adnexal cyst - f/u with obstetrician gynecologist as an outpatient - imaging showed 6x8 at right adnexal - hx of cyst removal #osteoarthritis - patient follows with ortho as an out patient #CKD - Cr: 1.6, at patients baseline; 2/2 kidney stones -monitor Cr and BMP DVT PPX: SCDS F/E/N NS @42 mls/hr monitor electrolytes; replete when necessary regular diet Problem List - Problems (1) UTI (urinary tract infection) Code(s): N39.0 - URINARY TRACT INFECTION, SITE NOT SPECIFIED Qualifiers: Urinary tract infection type: site unspecified Hematuria presence: without hematuria Qualified Code(s): N39.0 - Urinary tract infection, site not specified (2) Abdominal pain Code(s): R10.9 - UNSPECIFIED ABDOMINAL PAIN Qualifiers: Abdominal location: generalized Qualified Code(s): R10.84 - Generalized abdominal pain Visit type - Emergency Visit Emergency Visit: Yes ED Registration Date: 10/01/18 Care time: The patient presented to the Emergency Department on the above date and was hospitalized for further evaluation of their emergent condition. - New Patient This patient is new to me today: No - Critical Care Critical Care patient: No
[2018-10-03] MEDS ORDERED: cefTRIAXone SODIUM 1 GM VIAL ONE (08:59)
[2018-10-03] MEDS ORDERED: DEXTROSE 5%-WATER - 50 ML IVPB ONE (09:00)
[2018-10-03] MEDS: LACTOBACILLUS ACIDOPHILUS 1 TABLET PO SCH (10:04)
[2018-10-03] MEDS: CEFTRIAXONE 1 GM in DEXTROSE 5%-WATER - 50 ML IVPB SCH (10:04)
--- NOTE | 2018-10-03 11:23 | PN ---
Progress Note, Physician History of Present Illness: patient feels a little better had esbl recently no other complaints pain ahs improved but still there - Current Medication List Current Medications: Active Medications Acetaminophen (Tylenol -) 650 mg PO Q6H PRN PRN Reason: PAIN 4-6 Heparin Sodium (Porcine) (Heparin -) 5,000 unit SQ TID [facility] Last Admin: 10/03/18 06:19 Dose: Not Given Ceftriaxone Sodium 1 gm/ (Dextrose) 50 mls @ 100 mls/hr IVPB DAILY [facility]; Protocol Last Admin: 10/03/18 10:04 Dose: 100 mls/hr Lactobacillus Acidophilus (Bacid -) 1 tab PO DAILY [facility] Last Admin: 10/03/18 10:04 Dose: 1 tab Morphine Sulfate (Morphine Sulfate) 2 mg IVPUSH Q6H PRN PRN Reason: PAIN LEVEL 6-10 Last Admin: 10/03/18 07:54 Dose: 2 mg - Objective Vital Signs: Vital Signs Temperature 98 F 10/03/18 05:48 Pulse Rate 58 L 10/03/18 05:48 Respiratory Rate 18 10/03/18 05:48 Blood Pressure 110/75 10/03/18 05:48 O2 Sat by Pulse Oximetry (%) 95 10/02/18 17:30 Constitutional: Yes: Calm, Mild Distress, Obese Cardiovascular: Yes: Regular Rate and Rhythm Respiratory: Yes: Regular, CTA Bilaterally Gastrointestinal: Yes: Normal Bowel Sounds, Soft, Other (urostomy in place) Genitourinary: Yes: CVA Tenderness - Left, Other (urostomy) Musculoskeletal: Yes: WNL Extremities: Yes: WNL Neurological: Yes: Alert, Oriented Psychiatric: Yes: Alert, Oriented Labs: CBC, BMP 10/03/18 06:00 10/03/18 06:00 Assessment/Plan uti pyelo obesity plan await for identification of the bacteria continue current abx if we get esbl we will switch abx rest as per the team
--- NOTE | 2018-10-03 13:40 | PN ---
Teaching Attending Note Name of Resident: Lisa Molina ATTENDING PHYSICIAN STATEMENT I saw and evaluated the patient. I reviewed the resident's note and discussed the case with the resident. I agree with the resident's findings and plan as documented. SUBJECTIVE:asymptomatic. had episode of vomiting last night after pain medications administered. no repeat episodes. tolerated diet. denies CP, SOB, fever, chills, N/V/C/D OBJECTIVE: Last Vital Signs Temp Pulse Resp BP Pulse Ox 98.4 F 52 L 18 137/83 95 10/03/18 10:00 10/03/18 10:00 10/03/18 10:00 10/03/18 10:00 10/02/18 17:30 General NAd Abdomen soft NT/ND +urostomy with clear yellow urine obese, no CVA tenderness ASSESSMENT AND PLAN: 43yo F wtih PMH nephrotlithasis, CKD, OA, Hx of nephrostomy tubes with internalization and urostomy with frequent UTI presented to the ER with L flank pain and found to have UTI 1. UTI- hx of ESBL Klebsiella in August 2018, ertapenem switched to Ceftriaxone. awaiting Ucx. contact precautions. ID consulted. 2. B/L hydronephrosis- L>R with L appearing worse than previous imaging. states she is in middle of evaluation from urology for reversal of urostomy. Urology consulted 3. Adnexal cyst- has hx of cyst. natural foods clerk consulted. can likely follow up as outpatient. will hold further imaging at this time 4. Diarrhea- no episodes since here. likely abx assoc diarrhea. on bacid. check stools for cdiff 5. CKD- stable at baseline 6. OA 7. nephrolithasis- small renal stone seen. will likely pass on its on 8. DVT ppx- hep sq
--- NOTE | 2018-10-03 14:02 | CONS ---
DATE OF CONSULTATION: DATE OF DICTATION: 10/03/2018 HISTORY OF PRESENT ILLNESS: Patient is a 43-year-old female admitted via the emergency room on October 01, 2018. She comes in with history of urinary tract infections. The patient also has chronic kidney disease secondary to recurrent nephrolithiasis for which she underwent an ileal conduit at [facility] several years ago. The patient states that she has abdominal pain for the past 2 days. She describes it as sharp, radiating from the right groin, going down to the right leg. She also states that there is pain in her left flank. She has been vomiting, and she had an episode of diarrhea in the past several days. She states that she gets this type of pain when gets a urinary tract infection. She states that she has been getting recurrent urinary tract infections since her ileal conduit. She changes the ileostomy bag every 5 days. Patient's most recent UTI was in late August, and the cultures were positive for ESBL. She was called and told to switch from Keflex to Cipro. The patient also had nephrostomy tubes placed for kidney stones, and she reports the tubes gave her recurrent pyelonephritis, and therefore they were removed. She reports she also had 2 cysts removed 6 years ago. She recently saw a chiller hand who told her that she had a positive urinary tract infection and to seek emergency room treatment. She has not had a grossly normal exam in a while. She also complains of swelling in her right knee, and she states that she has received contusion injections by an orthopedic surgeon. ALLERGIES: She denies any allergies. SOCIAL HISTORY: She was a former smoker, denies alcohol use. PHYSICAL EXAMINATION: Gastrointestinal/Genitourinary: In the emergency room her abdomen was soft. There was no CVA tenderness. The stoma was pink. Urine was clear. Vital Signs: Her temperature was 98.4. Blood pressure 129/98, respirations 18. LABORATORY: Her white count was 7.6. Hemoglobin and hematocrit are 14.5/42.9. BUN and creatinine were 23/1.9, respectively. Random glucose was 100. The patient's urine was negative for nitrites, positive for blood. IMPRESSION: This is a 42-year-old female with an ileal conduit secondary to current nephrolithiasis and passage of large stones, recurrent urinary tract infections. CT scan in the emergency room revealed bilateral hydronephrosis, moderate on the right, mild on the left; bilateral renal cysts and nonobstructing right renal stone. Patient is admitted for intravenous antibiotics and possible urologic workup to rule out obstructive uropathy. Her latest white count is 6.5, and her BUN and creatinine are 13/0.6. A urine grew out lactose fermenting gram-negative bacilli. Will recommend a diuretic nuclear renal scan to rule out any obstructive component. Patient will need ureteral dilation if there is an obstructive component to her hydronephrosis. Will follow with you. Dania [id number]
[2018-10-04] MEDS: MORPHINE SULFATE 2 MG/ML VIAL IVPUSH PRN ×4 (03:49→23:49)
[2018-10-04] MEDS: HEPARIN NA (PORCINE) 5,000 UNITS/ML 1ML VIAL SQ SCH ×3 (05:57→21:25)
[2018-10-04 07:16] LABS: HEMATOCRIT 42.3 % (32.4-45.2); MCH 29.6 pg (25.7-33.7); MCHC 33.1 g/dl (32.0-36.0); MEAN CELL VOLUME 89.3 fl (80-96); MEAN PLT VOLUME 9.2 fl (7.5-11.1); PLATELET COUNT 205 K/MM3 (134-434); RBC 4.74 M/mm3 (3.60-5.2); RDW 15.2 % (11.6-15.6); WHITE BLOOD COUNT 6.5 K/mm3 (4.0-10.0)
[2018-10-04 07:33] LABS: ANION GAP 6 MMOL/L (8-16); BLOOD UREA NITROGEN 14 mg/dL (7-18); CALCIUM 8.7 mg/dL (8.5-10.1); CHLORIDE 109 mmol/L (98-107); CO2 25 mmol/L (21-32); CREATININE 1.8 mg/dL (0.55-1.3); GLUCOSE,RANDOM 81 mg/dL (74-106); POTASSIUM 4.4 mmol/L (3.5-5.1); SODIUM 139 mmol/L (136-145)
[2018-10-04] MEDS ORDERED: DEXTROSE 5%-WATER - 50 ML IVPB ONE (09:11)
[2018-10-04] MEDS ORDERED: cefTRIAXone SODIUM 1 GM VIAL ONE (09:11)
--- NOTE | 2018-10-04 09:22 | CON.OBG ---
Consult Consult Specialty:: OBGYN Reason for Consultation:: Ovarian cyst - History of Present Illness Chief Complaint: Abdominal pain History of Present Illness: Patient is a 43 y/o Para 0, with a history of UTI's and CKD 2/2 to kidney stones with ileal conduit who presents for abdominal pain. Patient reports she has had abdominal pain for the last two days, describes it as sharp, and radiating down the right leg. Patient states she also has pain in her left flank. Patient reports she has also been vomiting with episodes of diarrhea for the last two days. Patient state she was also told she should not take that antibiotic in the past so she did not continue it. Patient has CKD 2/2 to kidney stones. She had nephrostomy tubes placed for the kidney stones and reports the tubes gave her UTI's. Patient currently denies fevers, chills, SOB , and chest pain. Patient has also had past history of cysts removal which have also caused abdominal pain in the past. She reports she has had two cysts removed 6-7 years ago. Her recent abdominal cat scan showed evidence of an adnexa mass. Wash Barrel Leader consulted due to ovarian cyst. I came to see the patient; she' s seating comfortably in bed. - History Source History Provided By: Patient Limitations to Obtaining History: No Limitations - Past Medical History Gastrointestinal: Yes: Hiatal Hernia, Other (ileal conduit; umbilical incisional hernia) Hepatobiliary: Yes: Cholelithiasis Renal/: Yes: Renal Inusuff (s/p urinary diversion, bilateral nephrostomies converted to ileal conduit ~[facility]), Renal Calculi, UTI ...LMP: 05/05/18 ...: No ...Para: 0 Psych: Yes: Anxiety, Depression Endocrine: Yes: Other (prior abnormal TFTs) - Past Surgical History Past Surgical History: Yes: Cystectomy, Ileal Conduit - Alcohol/Substance Use Hx Alcohol Use: No History of Substance Use: reports: Marijuana (daily) Date of Last Use: 05/09/18 - Smoking History Smoking history: Current some day smoker Have you smoked in the past 12 months: No Aproximately how many cigarettes per day: 4 - Social History Usual Living Arrangement: Alone ADL: Independent History of Recent Travel: No Home Medications - Allergies Allergies/Adverse Reactions: Allergies Allergy/AdvReac Type Severity Reaction Status Date / Time No Known Allergies Allergy Verified 10/01/18 17:28 - Home Medications Home Medications: Ambulatory Orders Oxycodone HCl [Oxycodone HCl ER] 30 mg PO Q6H PRN 10/02/18 Family Disease History - Family Disease History Family History: Unremarkable Family Disease History: CA: Mother, Respiratory: Mother Review of Systems - Review of Systems Constitutional: reports: No Symptoms Eyes: reports: No Symptoms HENT: reports: No Symptoms Neck: reports: No Symptoms Cardiovascular: reports: No Symptoms Respiratory: reports: No Symptoms Gastrointestinal: reports: Abdominal Pain Genitourinary: reports: No Symptoms Breasts: reports: No Symptoms Reported Musculoskeletal: reports: No Symptoms Integumentary: reports: No Symptoms Neurological: reports: No Symptoms Endocrine: reports: No Symptoms Hematology/Lymphatic: reports: No Symptoms Psychiatric: reports: No Symptoms Pain Intensity: 3 Physical Exam-FILTER OPERATOR Vital Signs: Vital Signs Temperature 98.6 F 10/04/18 02:00 Pulse Rate 59 L 10/04/18 02:00 Respiratory Rate 18 10/04/18 02:00 Blood Pressure 122/88 10/04/18 02:00 O2 Sat by Pulse Oximetry (%) 97 10/03/18 21:00 Constitutional: Yes: Well Nourished Eyes: Yes: Conjunctiva Clear HENT: Yes: Atraumatic Neck: Yes: Supple Cardiovascular: Yes: Regular Rate and Rhythm Respiratory: Yes: Regular Gastrointestinal: Yes: Normal Bowel Sounds External Genitalia: Yes: Normal Vaginal Exam: Yes: Normal Cervix: Yes: Normal Uterus: No: Tender Neurological: Yes: Alert, Oriented ...Motor Strength: WNL Psychiatric: Yes: Alert, Oriented Labs: CBC, BMP 10/04/18 06:30 10/04/18 06:30 Problem List - Problems (1) Ovarian cyst Code(s): N83.209 - UNSPECIFIED OVARIAN CYST, UNSPECIFIED SIDE Qualifiers: Laterality: unspecified laterality Qualified Code(s): N83.209 - Unspecified ovarian cyst, unspecified side Assessment/Plan Abdominal pain Urinary tract infection Adnexal mass R/O ovarian cyst F/U transvaginal sonogram F/U tumor markers
[2018-10-04] MEDS: CEFTRIAXONE 1 GM in DEXTROSE 5%-WATER - 50 ML IVPB SCH (09:23)
[2018-10-04] MEDS: LACTOBACILLUS ACIDOPHILUS 1 TABLET PO SCH (09:23)
--- NOTE | 2018-10-04 10:16 | PN ---
Progress Note, Physician History of Present Illness: stable doing well - Current Medication List Current Medications: Active Medications Acetaminophen (Tylenol -) 650 mg PO Q6H PRN PRN Reason: PAIN 4-6 Heparin Sodium (Porcine) (Heparin -) 5,000 unit SQ TID [facility] Last Admin: 10/04/18 05:57 Dose: Not Given Ceftriaxone Sodium 1 gm/ (Dextrose) 50 mls @ 100 mls/hr IVPB DAILY [facility]; Protocol Last Admin: 10/04/18 09:23 Dose: 100 mls/hr Lactobacillus Acidophilus (Bacid -) 1 tab PO DAILY [facility] Last Admin: 10/04/18 09:23 Dose: 1 tab Morphine Sulfate (Morphine Sulfate) 2 mg IVPUSH Q6H PRN PRN Reason: PAIN LEVEL 6-10 Last Admin: 10/04/18 09:25 Dose: 2 mg - Objective Vital Signs: Vital Signs Temperature 98.6 F 10/04/18 02:00 Pulse Rate 59 L 10/04/18 02:00 Respiratory Rate 18 10/04/18 02:00 Blood Pressure 122/88 10/04/18 02:00 O2 Sat by Pulse Oximetry (%) 97 10/03/18 21:00 Constitutional: Yes: No Distress, Calm Cardiovascular: Yes: Regular Rate and Rhythm Respiratory: Yes: Regular, CTA Bilaterally Gastrointestinal: Yes: Normal Bowel Sounds, Soft Genitourinary: Yes: Other (urostomy in place) Musculoskeletal: Yes: WNL Extremities: Yes: WNL Neurological: Yes: Alert, Oriented Psychiatric: Yes: Alert, Oriented Labs: CBC, BMP 10/04/18 06:30 10/04/18 06:30 Assessment/Plan uti pyelo obesity plan await for identification of the bacteria continue current abx if we get esbl we will switch abx rest as per the team
--- NOTE | 2018-10-04 11:35 | PN ---
Physical Exam: SUBJECTIVE: Patient seen and examined at bedside. patient states she is still having pain, however, it is slightly improving. she has not had anymore episodes of nausea or vomiting since the night before last night and feels the morphine is helping her pain. however, she is complaining of a left sided headache with associated tearing. she denies any CP/SOB/N/fevers or chills. OBJECTIVE: Vital Signs Period Temp Pulse Resp BP Sys/Minor Pulse Ox Last 24 Hr 97.8 F-98.6 F 54-79 18-18 114-142/66-92 97 GENERAL: The patient is awake, alert, and fully oriented, in slight acute distress. EYES: PERRL, extraocular movements intact, sclera anicteric, conjunctiva clear. No ptosis. ENT: Ears normal, nares patent, oropharynx clear without exudates, moist mucous membranes. NECK: Trachea midline, full range of motion, supple. LUNGS: Breath sounds equal, clear to auscultation bilaterally, no wheezes, no crackles, no accessory muscle use. HEART: Regular rate and rhythm, S1, S2 without murmur, rub or gallop. ABDOMEN: Soft, RLQ tenderness with urostomy bag in place with yellow urine, nondistended, normoactive bowel sounds, no guarding, no rebound, no hepatosplenomegaly, no masses. EXTREMITIES: 2+ pulses, warm, well-perfused, no edema. NEUROLOGICAL: Cranial nerves II through XII grossly intact. Normal speech, gait not observed. PSYCH: Normal mood, normal affect. SKIN: Warm, dry, normal turgor, no rashes or lesions noted Laboratory Results - last 24 hr 10/04/18 10/04/18 06:30 06:30 WBC 6.5 RBC 4.74 Hgb 14.0 Hct 42.3 MCV 89.3 MCH 29.6 MCHC 33.1 RDW 15.2 Plt Count 205 MPV 9.2 Sodium 139 Potassium 4.4 Chloride 109 H Carbon Dioxide 25 Anion Gap 6 L BUN 14 Creatinine 1.8 H Creat Clearance w eGFR 30.57 Random Glucose 81 Calcium 8.7 Active Medications Generic Name Dose Route Start Last Admin Trade Name Freq PRN Reason Stop Dose Admin Acetaminophen 650 mg 10/02/18 15:54 Tylenol - PO Q6H PRN PAIN 4-6 Heparin Sodium (Porcine) 5,000 unit 11/13/18 14:00 10/04/18 05:57 Heparin - SQ Not Given TID PATRICK Ceftriaxone Sodium 1 gm/ 50 mls @ 100 mls/hr 10/03/18 10:00 10/04/18 09:23 Dextrose IVPB 100 mls/hr DAILY PATRICK Administration Protocol Lactobacillus Acidophilus 1 tab 10/02/18 10:15 10/04/18 09:23 Bacid - PO 1 tab DAILY PATRICK Administration Morphine Sulfate 2 mg 10/03/18 07:28 10/04/18 09:25 Morphine Sulfate IVPUSH 2 mg Q6H PRN Administration PAIN LEVEL 6-10 ASSESSMENT/PLAN: 43 y/o female with PMH of CKD 2/2 kidney stones requiring urostomy bag, multiple UTIS's in the past presents to the ED with left flank and abdominal pain. #UTI - Patient has extensive history of UTI, most recent 09/05 for ESBL, may not have completed treatment - currently on 1 gram of ceftriaxone- awaiting urine cx - f/u Dr. Castillo for - saw patient; ordered a nuclear renal diuretic scan to r/o obstructive component -f/u urine cx; tailor abx accordingly - ABD/pelvis CT: slightly increased left hydronephrosis, mild right hydronephrosis, bilateral nephrostomy tube tracts, nonobstructing 4mm right renal calculus, large approximately 8 x 6 cm right posterior adnexal nonspecific cystic structure, - NS @ 42 #nausea and diarrhea - f/u cdiff and lactoferrin - recent antibiotic use -started patient on Bacid -zofran PRN for nausea; check QTC #adnexal cyst - imaging showed 6x8 at right adnexal - hx of cyst removal -gasoline pump mechanic saw patient- f/u tumor markers and transvaginal U/S #osteoarthritis - patient follows with ortho as an out patient #CKD - Cr: 1.6, at patients baseline; 2/2 kidney stones -monitor Cr and BMP DVT PPX: SCDS F/E/N NS @42 mls/hr monitor electrolytes; replete when necessary regular diet Problem List - Problems (1) UTI (urinary tract infection) Code(s): N39.0 - URINARY TRACT INFECTION, SITE NOT SPECIFIED Qualifiers: Urinary tract infection type: site unspecified Hematuria presence: without hematuria Qualified Code(s): N39.0 - Urinary tract infection, site not specified (2) Abdominal pain Code(s): R10.9 - UNSPECIFIED ABDOMINAL PAIN Qualifiers: Abdominal location: generalized Qualified Code(s): R10.84 - Generalized abdominal pain Visit type - Emergency Visit Emergency Visit: Yes ED Registration Date: 10/01/18 Care time: The patient presented to the Emergency Department on the above date and was hospitalized for further evaluation of their emergent condition. - New Patient This patient is new to me today: No - Critical Care Critical Care patient: No
--- NOTE | 2018-10-04 13:22 | PN ---
Teaching Attending Note Name of Resident: Lisa Molina ATTENDING PHYSICIAN STATEMENT I saw and evaluated the patient. I reviewed the resident's note and discussed the case with the resident. I agree with the resident's findings and plan as documented. SUBJECTIVE:has intermittent abdominal discomfort which is relieved with pain medications. denies CP, SOB, fever, chills, N/V/C/D. diarrhea has resolved OBJECTIVE: Last Vital Signs Temp Pulse Resp BP Pulse Ox 97.8 F 79 18 122/79 98 10/04/18 10:00 10/04/18 10:00 10/04/18 10:00 10/04/18 10:00 10/04/18 09:00 General NAd Abdomen soft NT/ND +urostomy with clear yellow urine obese, no CVA tenderness ASSESSMENT AND PLAN: 43yo F wtih PMH nephrotlithasis, CKD, OA, Hx of nephrostomy tubes with internalization and urostomy with frequent UTI presented to the ER with L flank pain and found to have UTI 1. UTI- hx of ESBL Klebsiella in August 2018, on Ceftriaxone day 2. (day 3 of abx) awaiting Ucx. contact precautions. ID consulted. 2. B/L hydronephrosis- L>R with L appearing worse than previous imaging. states she is in middle of evaluation from urology for reversal of urostomy. Urology consulted. recommends NM renal scan to assess function 3. Adnexal cyst- has hx of cyst. seat cover maker consulted. can likely follow up as outpatient. 4. Diarrhea- no episodes since here. likely abx assoc diarrhea. on bacid. unable to provide sample to check cdiff 5. CKD- stable at baseline 6. OA 7. nephrolithasis- small renal stone seen. will likely pass on its on 8. DVT ppx- hep sq 9. awaiting Ucx to determine abx selection
[2018-10-04] MEDS: MEROPENEM 1 GM in DEXTROSE 5%-WATER 100 ML IVPB SCH (17:02)
[2018-10-05] MEDS ORDERED: PT OWN MED DRAWER 7, Y5N ONE ×5 (01:13→16:58)
[2018-10-05] MEDS: MEROPENEM 1 GM in DEXTROSE 5%-WATER 100 ML IVPB SCH ×2 (02:21→09:33)
[2018-10-05] MEDS: HEPARIN NA (PORCINE) 5,000 UNITS/ML 1ML VIAL SQ SCH ×2 (05:33→14:48)
[2018-10-05] MEDS: MORPHINE SULFATE 2 MG/ML VIAL IVPUSH PRN (06:05)
[2018-10-05] MEDS ORDERED: oxyCODONE HCL 5 MG TABLET PO PRN (09:29)
[2018-10-05] MEDS: LACTOBACILLUS ACIDOPHILUS 1 TABLET PO SCH (09:33)
--- NOTE | 2018-10-05 10:10 | PN ---
Progress Note, Physician History of Present Illness: stable no new issues - Current Medication List Current Medications: Active Medications Acetaminophen (Tylenol -) 650 mg PO Q6H PRN PRN Reason: PAIN 4-6 Heparin Sodium (Porcine) (Heparin -) 5,000 unit SQ TID [facility] Last Admin: 10/05/18 05:33 Dose: Not Given Meropenem 1 gm/ Dextrose 100 mls @ 200 mls/hr IVPB Q8H-IV [facility] Last Admin: 10/05/18 09:33 Dose: 200 mls/hr Lactobacillus Acidophilus (Bacid -) 1 tab PO DAILY [facility] Last Admin: 10/05/18 09:33 Dose: 1 tab Oxycodone HCl (Roxicodone -) 10 mg PO Q6H PRN PRN Reason: PAIN LEVEL 4 - 6 - Objective Vital Signs: Vital Signs Temperature 97.9 F 10/05/18 05:58 Pulse Rate 80 10/05/18 05:58 Respiratory Rate 18 10/05/18 05:58 Blood Pressure 129/75 10/05/18 05:58 O2 Sat by Pulse Oximetry (%) 98 10/04/18 21:00 Constitutional: Yes: No Distress, Calm Cardiovascular: Yes: Regular Rate and Rhythm Respiratory: Yes: Regular, CTA Bilaterally Gastrointestinal: Yes: Normal Bowel Sounds, Soft Musculoskeletal: Yes: WNL Extremities: Yes: WNL Neurological: Yes: Alert, Oriented Psychiatric: Yes: Alert, Oriented Labs: CBC, BMP 10/04/18 06:30 10/04/18 06:30 Assessment/Plan uti pyelo obesity all cx results noted esbl uti symptomatic plan will switch to ertapenam 1 gmdaily patient will need it for 13 days after today rest as per the team patient doing well
[2018-10-05] MEDS ORDERED: ERTAPENEM SODIUM 1 GM/50 ML PRE-DOCKED IVPB SCH (10:15)
[2018-10-05] MEDS ORDERED: ERTAPENEM SODIUM 1 GM in SODIUM CHLORIDE 50 ML IVPB SCH (12:00)
--- NOTE | 2018-10-05 12:27 | PN ---
Teaching Attending Note Name of Resident: Lisa Molina ATTENDING PHYSICIAN STATEMENT I saw and evaluated the patient. I reviewed the resident's note and discussed the case with the resident. I agree with the resident's findings and plan as documented. SUBJECTIVE:minimal discomfort around urostomy bag. desnis CP, SOB< fever, chills , N/V/C/D OBJECTIVE: Last Vital Signs Temp Pulse Resp BP Pulse Ox 97.9 F 80 18 129/75 98 10/05/18 05:58 10/05/18 05:58 10/05/18 05:58 10/05/18 05:58 10/04/18 21:00 General NAd Abdomen soft NT/ND +urostomy with clear yellow urine obese, ASSESSMENT AND PLAN: 43yo F wtih PMH nephrotlithasis, CKD, OA, Hx of nephrostomy tubes with internalization and urostomy with frequent UTI presented to the ER with L flank pain and found to have UTI 1. ESBL E coli UTI- abx switched to meropenem yesterday. will d/c on ertapenem. will need total of 14 day course. PICC Line today. informed CM of needing home infusions. contact precautions. ID consulted. 2. B/L hydronephrosis- L>R with L appearing worse than previous imaging. states she is in middle of evaluation from urology for reversal of urostomy. NM renal scan showing stasis and no obstruction. can f/u with urology as outpatient. 3. Adnexal cyst- has hx of cyst. candle molder consulted. can likely follow up as outpatient. 4. Diarrhea- no episodes since here. likely abx assoc diarrhea. on bacid. unable to provide sample to check cdiff 5. CKD- stable at baseline 6. OA 7. nephrolithasis- small renal stone seen. will likely pass on its on 8. DVT ppx- hep sq 9. d/c home today with PICC. pt states she feels comfortable doing abx on her own. awiating on ins. auth for medications.
[2018-10-05 14:00] VITALS: TEMP 97.2
[2018-10-05] MEDS ORDERED: PICC LINE 8 ML FLUSH PROTOCOL IVPUSH PRN (14:01)
[2018-10-05 16:06] VITALS: BP 123/87; PULSE 66
--- NOTE | 2018-10-05 17:51 | DS ---
Physical Exam: SUBJECTIVE: Patient seen and examined OBJECTIVE: Vital Signs Period Temp Pulse Resp BP Sys/Minor Pulse Ox Last 24 Hr 97.2 F-97.9 F 66-80 16-18 121-130/65-99 96-98 PHYSICAL EXAM GENERAL: The patient is awake, alert, and fully oriented, in no acute distress. HEAD: Normal with no signs of trauma. EYES: PERRL, extraocular movements intact, sclera anicteric, conjunctiva clear. ENT: Ears normal, nares patent, oropharynx clear without exudates, moist mucous membranes. NECK: Trachea midline, full range of motion, supple. LUNGS: Breath sounds equal, clear to auscultation bilaterally, no wheezes, no crackles, no accessory muscle use. HEART: Regular rate and rhythm, S1, S2 without murmur, rub or gallop. ABDOMEN: Soft, nontender, nondistended, normoactive bowel sounds, no guarding, no rebound, no hepatosplenomegaly, no masses. EXTREMITIES: 2+ pulses, warm, well-perfused, no edema. NEUROLOGICAL: Cranial nerves II through XII grossly intact. Normal speech, gait not observed. PSYCH: Normal mood, normal affect. SKIN: Warm, dry, normal turgor, no rashes or lesions noted. LABS Microbiology 10/01/18 23:16 Urine - Urostomy Bag Urine Culture - Final Escherichia Coli Esbl Employment Programs Analyst Imaging: Ab pelvis/CT A right lower quadrant ileostomy is seen as on a prior CT exam of 07/20/2018. Note is made of slightly increased left hydronephrosis which currently appears mild to moderate. There is mild right hydronephrosis without definite interval change. Interval appearance of a small amount of air is noted within the renal collecting systems bilaterally - ? Due to recent ileostomy manipulation or postprocedural change and probably less likely on the basis of a gas-forming infection. Clinical/laboratory correlation is suggested. Bilateral nephrostomy tube tracts are noted. No current nephrostomy tube is seen in place. Nonobstructing 4 mm right renal calculus. A large approximately 8 x 6 cm right posterior adnexal nonspecific cystic structure is noted which appears to be mildly increased in size since the previous exam (as well as increased in size in comparison to a more remote CT studies). 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 A small bowel surgical anastomosis is seen within the lower abdomen/upper pelvis centrally. Umbilical hernia containing a nondilated small bowel loop. Cholelithiasis. Colonic diverticulosis. Renal/Diuretic Scan: IMPRESSION: Relatively symmetric renal function with increased T half emptying time in the indeterminate range (10 to 20 minutes). The overall Gestalt is that the dilated calyces and renal pelvises seen on CT scan likely on the basis of stasis rather than obstruction. There is overall improved T half emptying time as compared to the prior exam of March 2018 at which time it measures 17 minutes on the right and 21.5 minutes on the left. HOSPITAL COURSE: Date of Admission:10/01/18 43 y/o female with PMH of kidney stones, multiple UTIs growing ESBL, ileal conduit with a RLQ urostomy bag, presents to the ED with left flank pain and right lower quadrant pain. Patient had a UTI about a month ago which grew ESBL and patient was started on cipro but did not finish her course of abx. She went to her rn dermatology who told her that if she continues to have pain then she should come to the ER. Upon arrival, patients vital signs were stable and she did not have a WBC count. An ab/pelvis CT was done with the results shown above. A U/A was positive and patient was started on ceftriaxone empirically until the cultures came back. We consulted patients urologist who suggested to get the nuclear renal scan which was shown above. Patient was also found to have an adnexal cyst on CT and the rn dermatology came to evaluate the patient. Patients cultures came back growing ESBL so patient was started on ertapenem. Patient was stable enough for discharge with 13 days of ertapenem in addition to follow up appointments with the urologist and the obstetrics gyn/ Date of Discharge: 10/05/18 Minutes to complete discharge: 39 Discharge Summary Reason For Visit: UTI Current Active Problems Ovarian cyst (Acute) UTI (urinary tract infection) (Acute) Condition: Stable - Instructions Diet, Activity, Other Instructions: You came to the emergency room with complaints of right lower abdominal pain and left sided flank pain. You were found to have a strong infection which requires treatment with IV antibiotics. We had the infectious disease specialist come and evaluate you and he started you on an antibiotic called meropenem. We had your urologist Dr. Castillo come and evaluate you as well and a nuclear scan of your kidney was performed which showed symmetric renal function with no real obstructive component seen, but suggest you follow up with your normal scheduled appointments with him. You were also seen by a obstetrics gyn for the adnexal cyst of which you were aware was already present. Your pain and symptoms improved and you were stable for discharge home. We placed a picc-line for you to go home with the IV antibiotic, Ertapenem 1 gram, to treat the urinary tract infection. Please resume all of your home medications in addition: -please take the antibiotic, Ertapenem 1gram daily, for 13 days starting from tomorrow -please take Bacid, this will prevent you from developing diarrhea while on antibiotics. You should take it for a month and then can stop. Referrals: -we advise that you follow up with your primary care doctor in one week -we advise that you follow up with Dr. Castillo in one week - we are also providing you with the referral for Dr. Nguyen, the obstetrics gyn that saw you in the hospital * if you begin to experience any chest pain, shortness of breath, fevers or chills please return to the emergency room immediately. Referrals: Vanessa Nguyen MD [Staff Physician] - Rayne Castillo MD [Staff Physician] - 1 Week Disposition: HOME - Home Medications Comprehensive Discharge Medication List: Ambulatory Orders Oxycodone HCl [Oxycodone HCl ER] 30 mg PO Q6H PRN 10/02/18 Ertapenem Sodium [Invanz -] 1 gm IVPB DAILY 13 Days #1 vial 10/05/18 Lactobacillus Acidophilus [Bacid -] 1 tab PO DAILY 30 Days #30 tab 10/05/18 Problem List - Problems (1) UTI (urinary tract infection) Code(s): N39.0 - URINARY TRACT INFECTION, SITE NOT SPECIFIED Qualifiers: Urinary tract infection type: site unspecified Hematuria presence: without hematuria Qualified Code(s): N39.0 - Urinary tract infection, site not specified (2) Abdominal pain Code(s): R10.9 - UNSPECIFIED ABDOMINAL PAIN Qualifiers: Abdominal location: generalized Qualified Code(s): R10.84 - Generalized abdominal pain This patient is new to me today: No Emergency Visit: Yes ED Registration Date: 10/01/18 Care time: The patient presented to the Emergency Department on the above date and was hospitalized for further evaluation of their emergent condition. Critical Care patient: No - Discharge Referral Referred to [facility] No
== END 2018-10-05 18:05 | disposition home or self-care (01) | DRG 463 ==
LOC: JER 17:09 → JERBED 23:51 → UNDOADMIN 23:59 → J7W 10-02 17:15
PROVIDERS: ADMIT Internal Medicine; ATTEND Internal Medicine
DX: N13.6 Pyonephrosis (principal); N18.4 Chronic kidney disease, stage 4 (severe); Z93.6 Other artificial openings of urinary tract status; E88.09 Other disorders of plasma-protein metabolism, not elsewhere classified; N20.0 Calculus of kidney; B96.29 Other Escherichia coli [E. coli] as the cause of diseases classified elsewhere; Z16.12 Extended spectrum beta lactamase (ESBL) resistance; N83.8 Other noninflammatory disorders of ovary, fallopian tube and broad ligament; M19.90 Unspecified osteoarthritis, unspecified site; F17.210 Nicotine dependence, cigarettes, uncomplicated; K57.30 Diverticulosis of large intestine without perforation or abscess without bleeding; E66.9 Obesity, unspecified; Z68.38 Body mass index [BMI] 38.0-38.9, adult; F32.9 Major depressive disorder, single episode, unspecified; F41.9 Anxiety disorder, unspecified; F12.10 Cannabis abuse, uncomplicated; K42.9 Umbilical hernia without obstruction or gangrene
CPT/HCPCS: 36415; 36558; 74176-TC; 77001-TC-FY; 78708-TC; 80048; 80053; 81003; 81015; 82378; 84702; 85025; 85027; 86304; 87086; 87186; 99285-25; A9562; C1751; J0131; J1644; J7030

== ENCOUNTER 2018-10-16 03:31 | Emergency (ER) | payer OTHER ==
[2018-10-16 03:45] VITALS: TEMP 98.5; BMI 37.4
[2018-10-16] MEDS ORDERED: ALBUTEROL SO4 2.5/IPRATROPIUM 0.5 INH SOL 3 ML VIAL.NEB. NEB ONE ×3 (04:09→05:11)
--- NOTE | 2018-10-16 04:09 | PDOC ---
History of Present Illness - General Chief Complaint: Bleeding from PICC Line Stated Complaint: PICC LINE BLEEDING Time Seen by Provider: 10/16/18 03:52 History Source: Patient - History of Present Illness Initial Comments: 10/16/18 04:45 43 year old female recently discharged from the hospital for urinary tract infection c/o bleeding from picc line site also c/o of SOB and wheezing. patient is smoker for 5 years, denies chest pain. patient has a past medical history of UTI's and CKD 2/2 to kidney stones with ileal conduit denies fever/ chills, NVD, abdominal apin, chest pain. Patient is a smoker. Past History - Past Medical History Allergies/Adverse Reactions: Allergies Allergy/AdvReac Type Severity Reaction Status Date / Time No Known Allergies Allergy Verified 10/01/18 17:28 Home Medications: Ambulatory Orders Oxycodone HCl [Oxycodone HCl ER] 30 mg PO Q6H PRN 10/02/18 Ertapenem Sodium [Invanz -] 1 gm IVPB DAILY 13 Days #1 vial 10/05/18 Lactobacillus Acidophilus [Bacid -] 1 tab PO DAILY 30 Days #30 tab 10/05/18 Albuterol Sulfate Inhaler - [Ventolin HFA Inhaler -] 1 - 2 inh PO Q4H PRN #1 inhaler 10/16/18 Anemia: Yes Asthma: No Cancer: No Cardiac Disorders: No CVA: No COPD: No CHF: No Dementia: No Diabetes: No GI Disorders: No Disorders: Yes (Ileal Conduit, H/O KIDNEY STONES) HTN: No Hypercholesterolemia: No Kidney Stones: Yes (kidney failure) Liver Disease: No Seizures: No Thyroid Disease: No - Surgical History Abdominal Surgery: No Appendectomy: No Cardiac Surgery: No Cholecystectomy: No Lung Surgery: No Neurologic Surgery: No Orthopedic Surgery: No - Reproductive History (#): 0 Para: 0 - Immunization History Immunization Up to Date: Yes - Suicide/Smoking/Psychosocial Hx Smoking Status: No Smoking History: Current every day smoker Have you smoked in the past 12 months: No Number of Cigarettes Smoked Daily: 8 Cigars Per Day: 0 Information on smoking cessation initiated: No 'Breaking Loose' booklet given: 09/03/18 Hx Alcohol Use: No Drug/Substance Use Hx: No Substance Use Type: None Hx Substance Use Treatment: No *Physical Exam - Vital Signs Last Vital Signs Temp Pulse Resp BP Pulse Ox 98.5 F 78 19 118/83 98 10/16/18 03:40 10/16/18 03:40 10/16/18 03:40 10/16/18 03:40 10/16/18 03:40 - Physical Exam General Appearance: Yes: Appropriately Dressed HEENT: positive: Other (slight bleeding at the picc line site on right chest. ) Respiratory/Chest: positive: Wheezing. negative: Accessory Muscle Use Cardiovascular: positive: Regular Rate Gastrointestinal/Abdominal: positive: Normal Bowel Sounds, Soft Extremity: positive: Normal Capillary Refill, Normal Inspection, Normal Range of Motion Integumentary: positive: Dry, Warm Neurologic: positive: Fully Oriented, Alert, Normal Mood/Affect Medical Decision Making - Medical Decision Making A: picc line bleeding at the site; bronchitis P: dressing changed. surgical at bleeding site. bleeding controlled. duoneb x 3 chest xray: negative 10/16/18 05:18 improved aeration. patient coughing sputum. will d/c home with albuterol inhaler. patient is currently on ertapanem. no addiitonal antibiotics will be added. strict return precautions reviewed with patient. *DC/Admit/Observation/Transfer Diagnosis at time of Disposition: Bronchitis Bleeding from PICC line Qualifiers: Encounter type: initial encounter Qualified Code(s): T82.838A - Hemorrhage due to vascular prosthetic devices, implants and grafts, initial encounter - Discharge Dispostion Disposition: HOME Condition at time of disposition: Stable - Prescriptions Prescriptions: Albuterol Sulfate Inhaler - [Ventolin HFA Inhaler -] 1 - 2 inh PO Q4H PRN #1 inhaler PRN Reason: Cough - Referrals Referrals: Vicki Guan DO [Primary Care Provider] - - Patient Instructions Printed Discharge Instructions: Acute Bronchitis Additional Instructions: use albuterol inhaler every 4 hours as needed for cough follow up with your doctor as soon as possible - Post Discharge Activity Forms/Work/School Notes: Back to Work
[2018-10-16] MEDS: ALBUTEROL SO4 2.5/IPRATROPIUM 0.5 INH SOL 3 ML VIAL.NEB. NEB SCH ×2 (04:49→05:17)
[2018-10-16 05:56] VITALS: BP 120/83; PULSE 86
== END 2018-10-16 05:56 | disposition home or self-care (01) ==
LOC: JER 03:31
PROC: 3E0F7GC Introduction of Other Therapeutic Substance into Respiratory Tract, Via Natural or Artificial Opening (ICD-10-PCS; principal; 2018-10-16)
DX: T82.838A Hemorrhage due to vascular prosthetic devices, implants and grafts, initial encounter (principal); J20.9 Acute bronchitis, unspecified
CPT/HCPCS: 71046-TC-FY; 94640; 99281-25

== ENCOUNTER → 2018-10-22 | Day surgery (SDC) | payer OTHER | END | disposition home or self-care (01) | LOC: JRADIR 09:39 | PROVIDERS: ATTEND Student in an Organized Health Care Education/Training Program | PROC: 0JPT0XZ Removal of Tunneled Vascular Access Device from Trunk Subcutaneous Tissue and Fascia, Open Approach (ICD-10-PCS; principal; 2018-10-22) | DX: Z45.2 Encounter for adjustment and management of vascular access device (principal) | CPT/HCPCS: 36589 ==

== ENCOUNTER 2018-11-05 21:53 | Inpatient (IN) | payer OTHER ==
[2018-11-05 22:00] VITALS: BMI 36.8
--- NOTE | 2018-11-05 22:28 | PDOC ---
History of Present Illness - General Chief Complaint: Shortness of Breath Stated Complaint: COUGH Time Seen by Provider: 11/05/18 22:28 History Source: Patient - History of Present Illness Initial Comments: 11/06/18 00:50 43 y/o female with PMH of kidney stones, multiple UTIs growing ESBL,bronchitis m (smoker) ileal conduit with a RLQ urostomy bag, presents to the ED with b/l flank pain and wheezing. reports that picc line was removed 2 weeks ago s/p treatment of ESBl UTI. denies Fever/ chills,vomiting, diarrhea reports nausea. Past History - Past Medical History Allergies/Adverse Reactions: Allergies Allergy/AdvReac Type Severity Reaction Status Date / Time No Known Allergies Allergy Verified 11/05/18 22:00 Home Medications: Ambulatory Orders Oxycodone HCl [Oxycodone HCl ER] 30 mg PO Q6H PRN 10/02/18 Ertapenem Sodium [Invanz -] 1 gm IVPB DAILY 13 Days #1 vial 10/05/18 Lactobacillus Acidophilus [Bacid -] 1 tab PO DAILY 30 Days #30 tab 10/05/18 Albuterol Sulfate Inhaler - [Ventolin HFA Inhaler -] 1 - 2 inh PO Q4H PRN #1 inhaler 10/16/18 Miscellaneous Medical Supply [Outpatient Order] 1 each ASDIR #1 misc Anemia: Yes Asthma: No Cancer: No Cardiac Disorders: No CVA: No COPD: No CHF: No Dementia: No Diabetes: No GI Disorders: No Disorders: Yes (Ileal Conduit, H/O KIDNEY STONES) HTN: No Hypercholesterolemia: No Kidney Stones: Yes (kidney failure) Liver Disease: No Seizures: No Thyroid Disease: No - Surgical History Abdominal Surgery: No Appendectomy: No Cardiac Surgery: No Cholecystectomy: No Lung Surgery: No Neurologic Surgery: No Orthopedic Surgery: No - Reproductive History (#): 0 Para: 0 - Immunization History Immunization Up to Date: Yes - Suicide/Smoking/Psychosocial Hx Smoking Status: No Smoking History: Current every day smoker Have you smoked in the past 12 months: No Number of Cigarettes Smoked Daily: 3 Cigars Per Day: 0 Information on smoking cessation initiated: Yes 'Breaking Loose' booklet given: 09/03/18 Hx Alcohol Use: No Drug/Substance Use Hx: No Substance Use Type: None Hx Substance Use Treatment: No *Physical Exam - Vital Signs Last Vital Signs Temp Pulse Resp BP Pulse Ox 98.3 F 70 18 137/97 96 11/05/18 21:57 11/05/18 21:57 11/05/18 21:57 18 21:57 11/05/18 21:57 - Physical Exam General Appearance: Yes: Appropriately Dressed Respiratory/Chest: positive: Wheezing. negative: Accessory Muscle Use Gastrointestinal/Abdominal: positive: Normal Bowel Sounds, Soft. negative: Tender Musculoskeletal: positive: CVA Tenderness, CVA Tenderness (R), CVA Tenderness (L ) Extremity: positive: Normal Capillary Refill, Normal Inspection, Normal Range of Motion Integumentary: positive: Normal Color, Dry, Warm Neurologic: positive: Fully Oriented, Alert Moderate Sedation - Procedure Monitoring Vital Signs: Procedure Monitoring Vital Signs Temperature 98.3 F 11/05/18 21:57 Pulse Rate 70 11/05/18 21:57 Respiratory Rate 18 11/05/18 21:57 Blood Pressure 137/97 11/05/18 21:57 O2 Sat by Pulse Oximetry (%) 96 11/05/18 21:57 ED Treatment Course - LABORATORY CBC & Chemistry Diagram: 11/05/18 23:50 11/05/18 23:50 Medical Decision Making - Medical Decision Making A: pyelonepritis Asthma exacerbation P 1. labs UA UCX Spiral CT 2. duoneb solumedrol x 1 11/06/18 00:30 improved aeration. patient reports that she is feeling tightness. will give solumedrol 11/06/18 01:45 11/06/18 02:37 CTAP: Lung bases are clear. The visualized cardiac chambers are normal size and configuration. Multiple gallstones are noted without gallbladder inflammation or biliary duct dilation. This bilateral renal scarring and mild bilateral hydronephrosis. Small amount of the right renal stone is noted. Normal unenhanced liver, pancreas, spleen, adrenal glands . There is a small hiatal hernia. Scattered colonic diverticulosis is noted. Right anterior abdominal wall urostomy in mild bilateral hydronephrosis. Small amount right renal stone is noted. There is a small umbilical hernia containing loops of small bowel. No bowel obstruction or inflammation. There is no aortic aneurysm. There is no significant retroperitoneal lymphadenopathy.There is no evidence of appendicitis. 7.9 cm right ovarian cyst is unchanged, which is larger to cause torsion. The uterus is normal. Urinary bladder is unremarkable. There is no pelvic free fluid. No discrete pelvic lymphadenopathy is identified 11/06/18 02:59 patient to be admitted for further management of care 11/06/18 03:00 11/06/18 03:13 Patient now with improved aeration. patient signed out to Dr. Michelle/Dr. Griffiths for management of pyelonephritis. *DC/Admit/Observation/Transfer Diagnosis at time of Disposition: Pyelonephritis Ovarian cyst Qualifiers: Laterality: left Qualified Code(s): N83.202 - Unspecified ovarian cyst, left side - Discharge Dispostion Decision to Admit order: Yes - Referrals - Patient Instructions - Post Discharge Activity
[2018-11-05] MEDS ORDERED: ALBUTEROL SO4 2.5/IPRATROPIUM 0.5 INH SOL 3 ML VIAL.NEB. NEB ONE (23:14)
[2018-11-05] MEDS: ALBUTEROL SO4 2.5/IPRATROPIUM 0.5 INH SOL 3 ML VIAL.NEB. NEB SCH ×3 (23:20→23:50)
[2018-11-06 00:03] LABS: BASO % 0.7 % (0-2.0); EOS % 12.2 % (0-4.5); HEMATOCRIT 40.9 % (32.4-45.2); HEMOGLOBIN 14.5 GM/dL (10.7-15.3); LYMPH % 27.8 % (8-40); MCH 31.1 pg (25.7-33.7); MCHC 35.3 g/dl (32.0-36.0); MEAN CELL VOLUME 88.1 fl (80-96); MEAN PLT VOLUME 9.1 fl (7.5-11.1); MONO % 5.7 % (3.8-10.2); NEUT % 53.6 % (42.8-82.8); PLATELET COUNT 249 K/MM3 (134-434); RBC 4.65 M/mm3 (3.60-5.2); RDW 14.7 % (11.6-15.6); WHITE BLOOD COUNT 7.9 K/mm3 (4.0-10.0)
[2018-11-06] MEDS: ALBUTEROL SO4 2.5/IPRATROPIUM 0.5 INH SOL 3 ML VIAL.NEB. NEB SCH ×4 (00:05→20:10)
[2018-11-06 00:15] LABS: INR 1.03 (0.83-1.09); PROTHROMBIN TIME (PATIENT) 12.2 SEC (9.7-13.0)
[2018-11-06 00:28] LABS: ALBUMIN 3.3 g/dl (3.4-5.0); ALK PHOS 77 U/L (45-117); ANION GAP 7 MMOL/L (8-16); BILIRUBIN,TOTAL 0.2 mg/dL (0.2-1); BLOOD UREA NITROGEN 23 mg/dL (7-18); CHLORIDE 110 mmol/L (98-107); CO2 23 mmol/L (21-32); CREATININE 2.1 mg/dL (0.55-1.3); GLUCOSE,RANDOM 92 mg/dL (74-106); POTASSIUM 4.2 mmol/L (3.5-5.1); SGOT/AST 21 U/L (15-37); SGPT/ALT 18 U/L (13-61); SODIUM 140 mmol/L (136-145); TOT PROT 7.3 g/dl (6.4-8.2)
[2018-11-06] MEDS ORDERED: methylPREDNISolone NA SUCC 125 MG/2 ML VIAL IVPUSH ONE (00:30)
[2018-11-06 01:00] LABS: URINE APPEARANCE CLOUDY; URINE BILIRUBIN NEGATIVE (<2.0 mg/dL); URINE COLOR LTYELLOW; URINE GLUCOSE (UA) NEGATIVE (NEGATIVE); URINE KETONE NEGATIVE (NEGATIVE); URINE LEUK ESTERASE 3+ (NEGATIVE); URINE NITRITE POSITIVE (NEGATIVE); URINE PROTEIN 2+ (NEGATIVE); URINE UROBILINOGEN NEGATIVE mg/dL (0.2-1.0)
[2018-11-06 01:04] LABS: EPI CELLS RARE /HPF (FEW); URINE BACTERIA MANY /hpf (NONE SEEN); URINE HYALINE CAST 3 /lpf; URINE MUCUS RARE; YEAST MANY
[2018-11-06] MEDS ORDERED: methylPREDNISolone NA SUCC 125 MG/2 ML VIAL ONE (01:08)
[2018-11-06] MEDS ORDERED: ACETAMINOPHEN 1000 MG/100 ML VIAL (NON FORMULARY) IVPB ONE ×2 (01:37→16:28)
[2018-11-06] MEDS ORDERED: ACETAMINOPHEN INJECTION 100 ML IVPB ONE (01:38)
--- NOTE | 2018-11-06 01:54 | PDOC ---
*Physical Exam - Vital Signs Last Vital Signs Temp Pulse Resp BP Pulse Ox 98.3 F 70 18 137/97 96 11/05/18 21:57 11/05/18 21:57 11/05/18 21:57 11/05/18 21:57 11/05/18 21:57 ED Treatment Course - LABORATORY CBC & Chemistry Diagram: 11/06/18 08:45 11/06/18 08:45 - ADDITIONAL ORDERS Additional order review: Laboratory Results 11/06/18 11/05/18 11/05/18 00:30 23:50 23:50 PT with INR INR Sodium 140 Potassium 4.2 Chloride 110 H Carbon Dioxide 23 Anion Gap 7 L BUN 23 H Creatinine 2.1 H Creat Clearance w eGFR 25.58 Random Glucose 92 Lactic Acid 1.4 Calcium 9.0 Total Bilirubin 0.2 AST 21 ALT 18 Alkaline Phosphatase 77 Total Protein 7.3 Albumin 3.3 L Beta HCG, Quant 1.3 Urine Color Ltyellow Urine Appearance Cloudy Urine pH 6.0 Ur Specific Mitchell 1.011 Urine Protein 2+ H Urine Glucose (UA) Negative Urine Ketones Negative Urine Blood 1+ H Urine Nitrite Positive Urine Bilirubin Negative Urine Urobilinogen Negative Ur Leukocyte Esterase 3+ H Urine WBC (Auto) 211 Urine RBC (Auto) 21 Ur Epithelial Cells Rare Urine Bacteria Many Hyaline Casts 3 Urine Mucus Rare Urine Yeast Many 11/05/18 23:50 PT with INR 12.20 INR 1.03 Sodium Potassium Chloride Carbon Dioxide Anion Gap BUN Creatinine Creat Clearance w eGFR Random Glucose Lactic Acid Calcium Total Bilirubin AST ALT Alkaline Phosphatase Total Protein Albumin Beta HCG, Quant Urine Color Urine Appearance Urine pH Ur Specific Mitchell Urine Protein Urine Glucose (UA) Urine Ketones Urine Blood Urine Nitrite Urine Bilirubin Urine Urobilinogen Ur Leukocyte Esterase Urine WBC (Auto) Urine RBC (Auto) Ur Epithelial Cells Urine Bacteria Hyaline Casts Urine Mucus Urine Yeast 11/05/18 23:50 RBC 4.65 MCV 88.1 MCHC 35.3 RDW 14.7 MPV 9.1 Neutrophils % 53.6 Lymphocytes % 27.8 D Monocytes % 5.7 Eosinophils % 12.2 H Basophils % 0.7 - Medications Given in the ED: ED Medications Discontinued Medications Generic Name Dose Route Start Last Admin Trade Name Freq PRN Reason Stop Dose Admin Albuterol/Ipratropium 1 amp 11/05/18 23:00 11/06/18 00:05 Duoneb - GONZALEZ 11/05/18 23:46 1 amp Q15M [facility] Administration Medical Decision Making - Medical Decision Making 11/06/18 01:53 I agree with the assessment and management of this case 11/06/18 01:54 *DC/Admit/Observation/Transfer Diagnosis at time of Disposition: Pyelonephritis, Ovarian cyst - Referrals - Patient Instructions - Post Discharge Activity
[2018-11-06] MEDS ORDERED: MEROPENEM 500 MG in DEXTROSE 5%-WATER 100 ML IVPB ONE (02:56)
[2018-11-06] MEDS ORDERED: SODIUM CHLORIDE 250 ML IV STA (02:58)
[2018-11-06] MEDS ORDERED: ALBUTEROL SO4 0.083% IH SOL 2.5 MG/3 ML VIAL.NEB. NEB PRN (03:26)
[2018-11-06] MEDS ORDERED: MORPHINE SULFATE 2 MG/ML VIAL IVPUSH ONE (04:21)
[2018-11-06] MEDS ORDERED: MORPHINE SULFATE 2 MG/ML VIAL ONE (04:26)
--- NOTE | 2018-11-06 05:28 | PN ---
Teaching Attending Note Name of Resident: Zay Piper ATTENDING PHYSICIAN STATEMENT I saw and evaluated the patient. I reviewed the resident's note and discussed the case with the resident. I agree with the resident's findings and plan as documented. SUBJECTIVE: Patient is a 43 year old woman with PMH of kidney stones, endometriosis, multiple UTIs growing ESBL (E.Coli and Klebsiella Pnuemoniae), bronchitis, tobacco use, prior nephrostomy tubes but now with iileal conduit with a RLQ urostomy bag, presents to the ER with bilateral flank pain and wheezing. Was recently treated for UTI 2 weeks ago. She reports that her right chest PICC line was removed 2 weeks ago after treatment of ESBl E. coli UTI. She denies fever/ chills or vomiting but has loose BM. Appetite is poor. She is , has no children, is unemployed and on disability. On arrival in the ER she was wheezing, but responded promptly to solumedrol and duoneb. OBJECTIVE: Alert Vital Signs Period Temp Pulse Resp BP Sys/Minor Pulse Ox Last 24 Hr 98.3 F 69-70 18-18 132-137/88-97 96-98 HEENT: No Jaundice, eye redness or discharge, PERRLA, EOMI. Normocephalic, atraumatic. External ears are normal and hearing is grossly intact. No nasal discharge. Neck: Supple, nontender. No palpable adenopathy or thyromegaly. No JVD Chest: Good effort. Clear to auscultation and percussion. Heart: Regular. No S3, rub or murmur Abdomen: Not distended, soft, nontender and no HSM. RLQ urostomy bag. Right CVAT. No rebound or guarding. Normoactive bowel sounds. Ext: Peripheral pulses intact. No leg edema. Skin: Warm and dry. No petechiae, rash or ecchymosis. Neuro: Alert. Oriented x3. CN 2-12 grossly intact. Sensation grossly intact in all four extremities and DTR are symmetric. Current Medications Generic Name Dose Route Start Last Admin Trade Name Freq PRN Reason Stop Dose Admin Acetaminophen 650 mg 11/06/18 03:28 Tylenol - PO Q4H PRN FEVER Albuterol Sulfate 1 amp 11/06/18 03:26 Ventolin 0.083% Nebulizer Soln - NEB Q3H PRN SHORT OF BREATH/WHEEZING Albuterol/Ipratropium 1 amp 11/06/18 03:26 Duoneb - NEB Q6H PRN SHORTNESS OF BREATH Budesonide/Formoterol Fumarate 2 puff 11/06/18 10:00 Symbicort 80/4.5mcg - IH BID PATRICK Lactobacillus Acidophilus 1 tab 11/06/18 10:00 Bacid - PO DAILY PATRICK Prednisone 40 mg 11/06/18 10:00 Deltasone - PO DAILY [facility] Home Medications Medication Instructions Recorded Lactobacillus Acidophilus [Bacid -] 1 tab PO DAILY 30 Days #30 tab 10/05/18 Albuterol Sulfate Inhaler - 1 - 2 inh PO Q4H PRN #1 inhaler 10/16/18 [Ventolin HFA Inhaler -] Abnormal Lab Results 11/05/18 11/05/18 11/06/18 23:50 23:50 00:30 Eosinophils % 12.2 H Chloride 110 H Anion Gap 7 L BUN 23 H Creatinine 2.1 H Albumin 3.3 L Urine Protein 2+ H Urine Blood 1+ H Ur Leukocyte Esterase 3+ H ASSESSMENT AND PLAN: 1. Pyelonephritis - CT scan shows bilateral mild hydronephrosis, small right kidney stone and renal scarring. Based on historical urine cultures, will treat with Ertapenem IV to cover ESBL E.Coli/Klebsiella pending urine and blood cultures. Place on contact isolation and consult ID. Will send stool for C. Diff toxin if diarrhea continues. 2. Tobacco Use We will provide patient all the necessary assistance to facilitate smoking cessation and prescribe Nicotine patch. 3. CKD - Likely due to obstructive uropathy. Will avoid nephrotoxic agents such as NSAIDS, aminoglycosides, contrast dyes and certain Alternative medicine products. Needs comprehensive work up to search for stone disease risk factor. 4. Obesity - Will provide patient all the necessary assistance, counseling and positive reinforcement to facilitate weight loss. Consult grind operator. 5. COPD exacerbation - Continue duoneb, symbicort and prednisone. 6. DVT prophylaxis - Heparin 5000u sq tid. 7. Advance directives - Full code
--- NOTE | 2018-11-06 05:31 | HP ---
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 Recently completed treatment w/ ertapenem via picc line for ESBl E. coli UTI 2 weeks ago w/ subsequent removal. She denies fever, chills, cp, SOB, urinary sxs, blood in stools but has had diarrhea and has had poor appetite. On arrival in the ER she was wheezing, but responded promptly to solumedrol and duoneb. ER course was notable for: (1)DUONEB, SOLUMEDROL, meropenem, NS 250cc (2) CT - mild bilateral hydronephrosis. Small amount right renal stone is noted. 7.9 cm right ovarian cyst is unchanged (3) UA - 3+leuk est, wbc 211, many bacteria Recent Travel: PAST MEDICAL HISTORY: PAST SURGICAL HISTORY: two ovarian cysts removed 6-7 years ago. Social History: Smokin cig per day for the past 3 yr Alcohol:denies Drugs: denies. marijuana in the past She is , has no children, is unemployed and on disability. Family History: Allergies No Known Allergies Allergy (Verified 11/05/18 22:00) HOME MEDICATIONS: Home Medications Medication Instructions Recorded Lactobacillus Acidophilus [Bacid -] 1 tab PO DAILY 30 Days #30 tab 10/05/18 Albuterol Sulfate Inhaler - 1 - 2 inh PO Q4H PRN #1 inhaler 10/16/18 [Ventolin HFA Inhaler -] REVIEW OF SYSTEMS as per HPI PHYSICAL EXAMINATION Vital Signs - 24 hr 11/05/18 11/05/18 11/06/18 21:57 23:09 04:47 Temperature 98.3 F Pulse Rate 70 Pulse Rate [ 69 Left] Respiratory 18 18 Rate Blood Pressure 137/97 Blood Pressure 132/88 [Right Arm] O2 Sat by Pulse 96 96 98 Oximetry (%) GENERAL: AOX3, NAD HEAD: NCAT EYES: sclera anicteric, conjunctiva clear. No lid lag. EARS, NOSE, THROAT:MMM. NECK: Normal range of motion, supple without lymphadenopathy, JVD, or masses. LUNGS: CTAB HEART:RRR, normal S1 and S2 without murmur, rub or gallop. ABDOMEN: Soft, NTND, normoactive bowel sounds, no guarding, no rebound, no masses. RLQ urostomy bag. Right CVAT MUSCULOSKELETAL: Normal range of motion at all joints. No bony deformities or tenderness. UPPER EXTREMITIES: 2+ pulses, warm, well-perfused. No cyanosis. No clubbing. No peripheral edema. LOWER EXTREMITIES: 2+ pulses, warm, well-perfused. No calf tenderness. No peripheral edema. NEUROLOGICAL: Cranial nerves II-XII intact. Normal speech. PSYCHIATRIC: Cooperative. Good eye contact. Appropriate mood and affect. SKIN: Warm, dry, normal turgor, no rashes or lesions noted, normal capillary refill. Laboratory Results - last 24 hr 11/05/18 11/05/18 11/05/18 23:50 23:50 23:50 WBC 7.9 RBC 4.65 Hgb 14.5 Hct 40.9 MCV 88.1 MCH 31.1 MCHC 35.3 RDW 14.7 Plt Count 249 D MPV 9.1 Absolute Neuts (auto) 4.3 Neutrophils % 53.6 Lymphocytes % 27.8 D Monocytes % 5.7 Eosinophils % 12.2 H Basophils % 0.7 Nucleated RBC % 0 PT with INR 12.20 INR 1.03 Sodium 140 Potassium 4.2 Chloride 110 H Carbon Dioxide 23 Anion Gap 7 L BUN 23 H Creatinine 2.1 H Creat Clearance w eGFR 25.58 Random Glucose 92 Lactic Acid Calcium 9.0 Total Bilirubin 0.2 AST 21 ALT 18 Alkaline Phosphatase 77 Total Protein 7.3 Albumin 3.3 L Beta HCG, Quant 1.3 Urine Color Urine Appearance Urine pH Ur Specific [place] Urine Protein Urine Glucose (UA) Urine Ketones Urine Blood Urine Nitrite Urine Bilirubin Urine Urobilinogen Ur Leukocyte Esterase Urine WBC (Auto) Urine RBC (Auto) Ur Epithelial Cells Urine Bacteria Hyaline Casts Urine Mucus Urine Yeast 11/05/18 11/06/18 23:50 00:30 WBC RBC Hgb Hct MCV MCH MCHC RDW Plt Count MPV Absolute Neuts (auto) Neutrophils % Lymphocytes % Monocytes % Eosinophils % Basophils % Nucleated RBC % PT with INR INR Sodium Potassium Chloride Carbon Dioxide Anion Gap BUN Creatinine Creat Clearance w eGFR Random Glucose Lactic Acid 1.4 Calcium Total Bilirubin AST ALT Alkaline Phosphatase Total Protein Albumin Beta HCG, Quant Urine Color Ltyellow Urine Appearance Cloudy Urine pH 6.0 Ur Specific [place] 1.011 Urine Protein 2+ H Urine Glucose (UA) Negative Urine Ketones Negative Urine Blood 1+ H Urine Nitrite Positive Urine Bilirubin Negative Urine Urobilinogen Negative Ur Leukocyte Esterase 3+ H Urine WBC (Auto) 211 Urine RBC (Auto) 21 Ur Epithelial Cells Rare Urine Bacteria Many Hyaline Casts 3 Urine Mucus Rare Urine Yeast Many ASSESSMENT/PLAN: 43 yo F PMH of kidney stones, 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 #UTI possibly w/ Pyelonephritis - Patient has extensive history of UTI, most recent 10/02/18 for ESBL, now s/p ertapenem IV - CT scan shows bilateral mild hydronephrosis, small right kidney stone and renal scarring -UA - 3+leuk est, wbc 211, many bacteria - ID consult - consult -f/u Ucx -s/p meropenem in ED -abx per ID, likely will restart Ertapenem IV to cover ESBL E.Coli/Klebsiella pending urine cultures -isolation #nausea and diarrhea - afebrile and w/o leukocytosis. - C diff toxin atnigen - recent antibiotic use -bacid #adnexal cyst hx of cyst removal CT - 7.9 cm right ovarian cyst is largely unchanged consider [employer] consult #osteoarthritis - patient follows with ortho as an out patient #JULIO on CKD - Likely 2/2 obstructive uropathy - Cr: 1.9, at patients baseline -will need outpt 24 hr urine collectiion will order PTH, uric acid avoid nephrotoxic agents #Obesity -BMI 36.9 encourage weight loss #Wheezing- likely asthma exacerbation - high eosinophilliea C/w duoneb, symbicort and prednisone. FEN no IVF at this time replete prn renal diet ppx SQH Dispo Full code med/surg Visit type - Emergency Visit Emergency Visit: Yes ED Registration Date: 11/06/18 Care time: The patient presented to the Emergency Department on the above date and was hospitalized for further evaluation of their emergent condition. - New Patient This patient is new to me today: Yes Date on this admission: 11/06/18 - Critical Care Critical Care patient: No
[2018-11-06] MEDS ORDERED: morphine SULFATE 4 MG/ML VIAL IVPUSH ONE (06:22)
[2018-11-06] MEDS: HEPARIN NA (PORCINE) 5,000 UNITS/ML 1ML VIAL SQ SCH ×3 (06:34→22:22)
[2018-11-06 09:07] LABS: BASO % 0.3 % (0-2.0); EOS % 0.3 % (0-4.5); HEMATOCRIT 41.5 % (32.4-45.2); HEMOGLOBIN 13.7 GM/dL (10.7-15.3); MCH 29.2 pg (25.7-33.7); MEAN CELL VOLUME 88.4 fl (80-96); MEAN PLT VOLUME 8.9 fl (7.5-11.1); MONO % 1.1 % (3.8-10.2); NEUT % 90.3 % (42.8-82.8); PLATELET COUNT 223 K/MM3 (134-434); RDW 14.8 % (11.6-15.6); WHITE BLOOD COUNT 7.6 K/mm3 (4.0-10.0)
[2018-11-06] MEDS ORDERED: ACETAMINOPHEN 325 MG TABLET (FP) PO PRN (09:38)
[2018-11-06 09:48] LABS: ALBUMIN 3.5 g/dl (3.4-5.0); ALK PHOS 75 U/L (45-117); ANION GAP 7 MMOL/L (8-16); BILIRUBIN,TOTAL 0.2 mg/dL (0.2-1); BLOOD UREA NITROGEN 21 mg/dL (7-18); CALCIUM 8.8 mg/dL (8.5-10.1); CHLORIDE 111 mmol/L (98-107); CO2 21 mmol/L (21-32); GLUCOSE,RANDOM 149 mg/dL (74-106); MAGNESIUM 1.9 mg/dL (1.8-2.4); PHOSPHOROUS 2.2 mg/dL (2.5-4.9); POTASSIUM 4.1 mmol/L (3.5-5.1); SGOT/AST 15 U/L (15-37); SGPT/ALT 19 U/L (13-61); SODIUM 140 mmol/L (136-145); TOT PROT 7.4 g/dl (6.4-8.2); URIC ACID 7.4 mg/dL (2.6-7.2)
[2018-11-06] MEDS: LACTOBACILLUS ACIDOPHILUS 1 TABLET PO SCH (09:59)
[2018-11-06] MEDS: predniSONE 20 MG TABLET (UD) PO SCH (09:59)
[2018-11-06] MEDS ORDERED: BUDESONIDE/FORMETEROL FUMARATE 160/4.5 mcg INHALER IH SCH (10:00)
[2018-11-06] MEDS: SODIUM CHLORIDE 1,000 ML IV SCH (10:16)
[2018-11-06] MEDS: oxyCODONE HCL 5 MG TABLET PO PRN ×2 (10:17→17:53)
[2018-11-06] MEDS ORDERED: PT OWN MED DRAWER 7, Y5N ONE ×2 (10:27→12:36)
[2018-11-06] MEDS: ALBUTEROL SO4 2.5/IPRATROPIUM 0.5 INH SOL 3 ML VIAL.NEB. NEB PRN (10:46)
--- NOTE | 2018-11-06 11:36 | PN ---
Teaching Attending Note Name of Resident: Sydney Carter ATTENDING PHYSICIAN STATEMENT I saw and evaluated the patient. I reviewed the resident's note and discussed the case with the resident. I agree with the resident's findings and plan as documented. SUBJECTIVE: No fever or chills. has no abd pain, no SOB or cough . reports cloudy dark urine , and has back pain across the lumbar area for 5 days . N/V/d resolved prior to admission OBJECTIVE: NAD , awake, cooperative HEENT: alightly dry MM. CV; RRR, no MRG Lungs: inspiratory wheezes , and prolonged exp phase Abd: RLQ urostomy bag, with cloud y urine . no tenderness. NL BS . no CVA tenderness Ext : no edema . ASSESSMENT AND PLAN: Unfortunate 43 y/o lady with h/o recurrent UTI infections , nephrolithiasis, previous nephrostomy tubes, endometriosis, s/p ileal conduit, COPD and other medical problems who presented with N/V/D/SOB , and back pain. She was found to have acute COPD exacerbation and UTI 1- UTI, possible pyelonephritis: CT scan reviewed, report is pending: b/l hydronephrosis, pelvic cyst. last admission CT scan showed b/l hydro as well. renal scan then showed symmetric function with suggestion of stasis rather than obstruction - received meropenem earlier this am. will cont with ertpenem due to previous ESBL - follow urine cx. - order blood cx - start IVF - Id conslt pending - place uro consult 2- Acute COPD exacerbation . improved - cont predniosne - cont Nebs . - cont symbicort 3- Terri on CKD ; likely due to prerenal azotemia in setting of N/V/d. - start IVF . - base line cr 1.9 4- DVT PX : heparin
--- NOTE | 2018-11-06 11:53 | PN ---
Physical Exam: SUBJECTIVE: Patient seen and examined at bedside this morning. Patient reports low back pain that started since 5 days ago. This was accompanied by nausea and vomiting. Patient reports she has been taking Tylenol and applied heating pads on the affected areas, but only provided minimal relief. She also noted that her urine had been cloudy in her urostomy bag. It was changed 3 days ago. Patient was recently admitted for a UTI that was ESBL positive. She was discharged with a PICC line to complete IV Ertapenem for 2 weeks. Five days ago , she reported having back pain across her lower back, as well as nausea and vomiting. Denies fever, chills, headache, weakness, numbness, chest pain, SOB, abdominal pain, diarrhea, constipation. OBJECTIVE: Vital Signs Period Temp Pulse Resp BP Sys/Minor Pulse Ox Last 24 Hr 97.1 F-98.3 F 67-70 18-20 132-147/88-99 95-98 GENERAL: The patient is awake, alert, and fully oriented, in no acute distress. HEAD: Normal with no signs of trauma. EYES: PERRLA, EOMI, sclera anicteric, conjunctiva clear. ENT: Ears normal, nares patent, oropharynx clear without exudates, dry mucous membranes. NECK: Trachea midline, full range of motion, supple. LUNGS: +wheezes bilaterally on all lung toth. HEART: Regular rate and rhythm, S1, S2 without murmur, rub or gallop. ABDOMEN: Soft, nontender, nondistended, normoactive bowel sounds. Negative CVA tenderness. EXTREMITIES: 2+ pulses, warm, well-perfused, no edema. MSK: +bilateral paraspinal tenderness on the lumbar area NEUROLOGICAL: AAOx3, Cranial nerves II through XII grossly intact. Motor strength 5/5, sensation intact. Normal speech, gait not observed. PSYCH: Normal mood, normal affect. SKIN: Warm, dry, normal turgor, +tattoos on the b/l UE/LE and abdomen Laboratory Results - last 24 hr 11/05/18 11/05/18 11/05/18 23:50 23:50 23:50 WBC 7.9 RBC 4.65 Hgb 14.5 Hct 40.9 MCV 88.1 MCH 31.1 MCHC 35.3 RDW 14.7 Plt Count 249 D MPV 9.1 Absolute Neuts (auto) 4.3 Neutrophils % 53.6 Lymphocytes % 27.8 D Monocytes % 5.7 Eosinophils % 12.2 H Basophils % 0.7 Nucleated RBC % 0 PT with INR 12.20 INR 1.03 Sodium 140 Potassium 4.2 Chloride 110 H Carbon Dioxide 23 Anion Gap 7 L BUN 23 H Creatinine 2.1 H Creat Clearance w eGFR 25.58 Random Glucose 92 Lactic Acid Uric Acid Calcium 9.0 Phosphorus Magnesium Total Bilirubin 0.2 AST 21 ALT 18 Alkaline Phosphatase 77 Total Protein 7.3 Albumin 3.3 L Beta HCG, Quant 1.3 Urine Color Urine Appearance Urine pH Ur Specific [place] Urine Protein Urine Glucose (UA) Urine Ketones Urine Blood Urine Nitrite Urine Bilirubin Urine Urobilinogen Ur Leukocyte Esterase Urine WBC (Auto) Urine RBC (Auto) Ur Epithelial Cells Urine Bacteria Hyaline Casts Urine Mucus Urine Yeast 11/05/18 11/06/18 11/06/18 23:50 00:30 08:45 WBC 7.6 RBC 4.70 Hgb 13.7 Hct 41.5 MCV 88.4 MCH 29.2 MCHC 33.0 RDW 14.8 Plt Count 223 MPV 8.9 Absolute Neuts (auto) 6.8 Neutrophils % 90.3 H Lymphocytes % 8.0 D Monocytes % 1.1 L D Eosinophils % 0.3 D Basophils % 0.3 Nucleated RBC % 0 PT with INR INR Sodium Potassium Chloride Carbon Dioxide Anion Gap BUN Creatinine Creat Clearance w eGFR Random Glucose Lactic Acid 1.4 Uric Acid Calcium Phosphorus Magnesium Total Bilirubin AST ALT Alkaline Phosphatase Total Protein Albumin Beta HCG, Quant Urine Color Ltyellow Urine Appearance Cloudy Urine pH 6.0 Ur Specific [place] 1.011 Urine Protein 2+ H Urine Glucose (UA) Negative Urine Ketones Negative Urine Blood 1+ H Urine Nitrite Positive Urine Bilirubin Negative Urine Urobilinogen Negative Ur Leukocyte Esterase 3+ H Urine WBC (Auto) 211 Urine RBC (Auto) 21 Ur Epithelial Cells Rare Urine Bacteria Many Hyaline Casts 3 Urine Mucus Rare Urine Yeast Many 11/06/18 08:45 WBC RBC Hgb Hct MCV MCH MCHC RDW Plt Count MPV Absolute Neuts (auto) Neutrophils % Lymphocytes % Monocytes % Eosinophils % Basophils % Nucleated RBC % PT with INR INR Sodium 140 Potassium 4.1 Chloride 111 H Carbon Dioxide 21 Anion Gap 7 L BUN 21 H Creatinine 2.0 H Creat Clearance w eGFR 27.07 Random Glucose 149 H Lactic Acid Uric Acid 7.4 H Calcium 8.8 Phosphorus 2.2 L Magnesium 1.9 Total Bilirubin 0.2 AST 15 ALT 19 Alkaline Phosphatase 75 Total Protein 7.4 Albumin 3.5 Beta HCG, Quant Urine Color Urine Appearance Urine pH Ur Specific [place] Urine Protein Urine Glucose (UA) Urine Ketones Urine Blood Urine Nitrite Urine Bilirubin Urine Urobilinogen Ur Leukocyte Esterase Urine WBC (Auto) Urine RBC (Auto) Ur Epithelial Cells Urine Bacteria Hyaline Casts Urine Mucus Urine Yeast Active Medications Generic Name Dose Route Start Last Admin Trade Name Freq PRN Reason Stop Dose Admin Acetaminophen 650 mg 11/06/18 03:28 Tylenol - PO Q4H PRN FEVER Albuterol/Ipratropium 1 amp 11/06/18 03:26 11/06/18 10:46 Duoneb - NEB 1 amp Q6H PRN Administration SHORTNESS OF BREATH Albuterol/Ipratropium 1 amp 11/06/18 12:00 Duoneb - NEB RQID PATRICK Budesonide/Formoterol Fumarate 2 puff 11/06/18 10:00 Symbicort 80/4.5mcg - IH BID PATRICK Heparin Sodium (Porcine) 5,000 unit 11/06/18 06:15 11/06/18 06:34 Heparin - SQ 5,000 unit TID PATRICK Administration Ertapenem 1 gm/ Sodium 50 mls @ 50 mls/hr 11/06/18 12:00 Chloride IVPB Q24H [facility] Protocol Sodium Chloride 1,000 mls @ 100 mls/hr 11/06/18 09:45 11/06/18 10:16 Normal Saline - IV 100 mls/hr ASDIR PATRICK Administration Lactobacillus Acidophilus 1 tab 11/06/18 10:00 11/06/18 09:59 Bacid - PO 1 tab DAILY PATRICK Administration Oxycodone HCl 5 mg 11/06/18 09:46 11/06/18 10:17 Roxicodone - PO 5 mg Q6H PRN Administration PAIN LEVEL 7 - 10 Prednisone 40 mg 11/06/18 10:00 11/06/18 09:59 Deltasone - PO 40 mg DAILY PATRICK Administration ASSESSMENT/PLAN: Patient is a 43 year old female with past medical history of kidney stones, endometriosis, recurrent UTIs (ESBL Klebsiella and E. coli), COPD, prior b/l nephrostomy tubes (20 years ago), s/p removal of nephrostomy tubes and placement of ileal conduit with RLQ urostomy bag, presented with bilateral flank pain and wheezing. #UTI, with possible pyelonephritis -CT A/P: s/p cystectomy with RLQ ileal conduit. Mildly atrophic and scarred bilateral kidneys with mild hydronephrosis and hydroureter down to the condyle. No obvious obstruction. Right nephrolithiasis. Enlarged uterus and larger right ovarian cyst. No evidence of acute pathology or significant change since . -UA: LE 3+, WBC 211, many bacteria, many yeast, Blood 1+, RBC 21 -Given IV Meropenem 500mg at the ED. -Will start IV Ertapenem today. -ID (Dr. Mercado) consulted. -Urology (Dr. Castillo) consulted. #Adnexal cyst -Follows up with [employer] as outpatient -Has been stable since last CT done #JULIO on CKD -likely pre-renal 2/2 dehydration from poor intake and vomiting -BUN/Cr 23/2.1 -IV NS @ 100ml started #COPD -Duonebs RQID STA and q6h PRN -Prednisone 40mg daily -Symbicort 80/4.5 BID #Low back pain, likely MSK -bilateral paraspinal tenderness, negative CVA tenderness -Tylenol 650 mg q6 PRN and Oxycodone 5mg q6 PRN for pain -Will continue to monitor #FEN -IV NS @100ml/hr -electrolytes wnl, routine bmp monitoring -Sodium controlled diet #Prophylaxis -Heparin 5000 units sq tid #Disposition -full code -med-surg -contact isolation Visit type - Emergency Visit Emergency Visit: Yes ED Registration Date: 11/06/18 Care time: The patient presented to the Emergency Department on the above date and was hospitalized for further evaluation of their emergent condition. - New Patient This patient is new to me today: Yes Date on this admission: 11/06/18 - Critical Care Critical Care patient: No
[2018-11-06] MEDS: BUDESONIDE/FORMETEROL FUMARATE 80/4.5 mcg INHALER IH SCH ×2 (11:56→22:28)
[2018-11-06] MEDS ORDERED: ERTAPENEM SODIUM 1 GM in SODIUM CHLORIDE 50 ML IVPB SCH (12:00)
[2018-11-06] MEDS ORDERED: NAPH,MB-DB/K PH,MBDB POWDER PACKET PO ONE (13:10)
--- NOTE | 2018-11-06 16:25 | EKG ---
Test Reason : Blood Pressure : / mmHG Vent. Rate : 071 BPM Atrial Rate : 071 BPM P-R Int : 144 ms QRS Dur : 078 ms QT Int : 426 ms P-R-T Axes : 031 014 040 degrees QTc Int : 462 ms NORMAL SINUS RHYTHM NORMAL ECG Confirmed by MD JAY, MAYLIN ([id number]) on 11/06/2018 4:25:12 PM Referred By: Confirmed By:MAYLIN THOMPSON MD
[2018-11-06] MEDS ORDERED: PROCHLORPERAZINE INJECTION 10 MG/2 ML VIAL IVPB PRN (17:45)
[2018-11-06] MEDS: ACETAMINOPHEN 325 MG TABLET (FP) PO PRN (17:52)
--- NOTE | 2018-11-06 18:37 | CON.ID ---
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 Recently completed treatment w/ ertapenem via picc line for ESBl E. coli UTI 2 weeks ago w/ subsequent removal. She denies fever, chills, cp, SOB, urinary sxs, blood in stools but has had diarrhea and has had poor appetite. patient now feels a little better still continues to have flank pain - History Source History Provided By: Patient Limitations to Obtaining History: No Limitations - Past Medical History Gastrointestinal: Yes: Hiatal Hernia, Other (ileal conduit; umbilical incisional hernia) Hepatobiliary: Yes: Cholelithiasis Renal/: Yes: Renal Inusuff (s/p urinary diversion, bilateral nephrostomies converted to ileal conduit ~2006 [facility]), Renal Calculi, UTI ...LMP: 05/05/18 Psych: Yes: Anxiety, Depression Endocrine: Yes: Other (prior abnormal TFTs) - Past Surgical History Past Surgical History: Yes: Cystectomy, Ileal Conduit - Alcohol/Substance Use Hx Alcohol Use: No History of Substance Use: reports: Marijuana (daily) Date of Last Use: 05/09/18 - Smoking History Smoking history: Current every day smoker Have you smoked in the past 12 months: Yes Aproximately how many cigarettes per day: 3 - Social History Usual Living Arrangement: Alone ADL: Independent History of Recent Travel: No Home Medications - Allergies Allergies/Adverse Reactions: Allergies Allergy/AdvReac Type Severity Reaction Status Date / Time No Known Allergies Allergy Verified 11/05/18 22:00 - Home Medications Home Medications: Ambulatory Orders RX: Lactobacillus Acidophilus [Bacid -] 1 tab PO DAILY 30 Days #30 tab 10/05/18 RX: Albuterol Sulfate Inhaler - [Ventolin HFA Inhaler -] 1 - 2 inh PO Q4H PRN # 1 inhaler 10/16/18 Amox-Tr/K Cl [Augmentin - 500Mg Tablet] 1 tab PO BID #10 tab 11/09/18 RX: Budesonide/Formeterol Fumarate [SYMBICORT 80/4.5mcg -] 2 puff IH BID inhaler 11/09/18 Family Disease History - Family Disease History Family Disease History: CA: Mother, Respiratory: Mother Review of Systems - Review of Systems Constitutional: reports: No Symptoms Eyes: reports: No Symptoms HENT: reports: No Symptoms Neck: reports: No Symptoms Cardiovascular: reports: No Symptoms Respiratory: reports: No Symptoms Gastrointestinal: reports: No Symptoms Genitourinary: reports: Flank Pain Musculoskeletal: reports: No Symptoms Integumentary: reports: No Symptoms Neurological: reports: No Symptoms Endocrine: reports: No Symptoms Hematology/Lymphatic: reports: No Symptoms Psychiatric: reports: No Symptoms Physical Exam Vital Signs: Vital Signs Temperature 97.7 F 11/06/18 18:11 Pulse Rate 96 H 11/06/18 13:47 Respiratory Rate 18 11/06/18 18:11 Blood Pressure 151/94 11/06/18 18:11 O2 Sat by Pulse Oximetry (%) 96 11/06/18 09:00 Constitutional: Yes: Well Nourished, Calm, Obese Eyes: Yes: Conjunctiva Clear HENT: Yes: Atraumatic, Normocephalic Neck: Yes: Supple, Trachea Midline Cardiovascular: Yes: Regular Rate and Rhythm Respiratory: Yes: Regular, CTA Bilaterally Gastrointestinal: Yes: Normal Bowel Sounds, Soft, Other (ostomy) Renal/: Yes: CVA Tenderness - Right Musculoskeletal: Yes: WNL Extremities: Yes: WNL Neurological: Yes: Alert, Oriented Psychiatric: Yes: Alert, Oriented Labs: CBC, BMP 11/06/18 08:45 11/06/18 08:45 Imaging - Results Cat Scan: Report Reviewed, Image Reviewed Assessment/Plan uti r/o pyelo abd pain copd ashanti plan will start patient on iv abx hydration rest as per the team once we have the results then we will decide final treatment
[2018-11-06] MEDS ORDERED: diphenhydrAMINE HCL 25 MG CAPSULE (FP) PO ONE (21:55)
[2018-11-07] MEDS ORDERED: PT OWN MED DRAWER 7, Y5N ONE ×4 (04:14→20:53)
[2018-11-07] MEDS: HEPARIN NA (PORCINE) 5,000 UNITS/ML 1ML VIAL SQ SCH ×3 (05:18→22:32)
[2018-11-07 07:27] LABS: HEMATOCRIT 38.9 % (32.4-45.2); HEMOGLOBIN 13.7 GM/dL (10.7-15.3); MCHC 35.3 g/dl (32.0-36.0); MEAN CELL VOLUME 87.9 fl (80-96); MEAN PLT VOLUME 9.7 fl (7.5-11.1); PLATELET COUNT 232 K/MM3 (134-434); RBC 4.43 M/mm3 (3.60-5.2); WHITE BLOOD COUNT 11.6 K/mm3 (4.0-10.0)
[2018-11-07 08:10] LABS: ANION GAP 7 MMOL/L (8-16); BLOOD UREA NITROGEN 20 mg/dL (7-18); CALCIUM 8.6 mg/dL (8.5-10.1); CHLORIDE 112 mmol/L (98-107); CO2 20 mmol/L (21-32); CREATININE 1.7 mg/dL (0.55-1.3); GLUCOSE,RANDOM 97 mg/dL (74-106); MAGNESIUM 2.2 mg/dL (1.8-2.4); PHOSPHOROUS 3.7 mg/dL (2.5-4.9); POTASSIUM 4.8 mmol/L (3.5-5.1); SODIUM 140 mmol/L (136-145)
--- NOTE | 2018-11-07 08:19 | PN ---
Teaching Attending Note Name of Resident: Alaina Singleton ATTENDING PHYSICIAN STATEMENT I saw and evaluated the patient. I reviewed the resident's note and discussed the case with the resident. I agree with the resident's findings and plan as documented. SUBJECTIVE: Patient is feeling better, wants to go home. OBJECTIVE: Vital Signs Temperature 97.9 F 11/07/18 06:00 Pulse Rate 69 11/07/18 06:00 Respiratory Rate 20 11/07/18 06:00 Blood Pressure 139/79 11/07/18 06:00 O2 Sat by Pulse Oximetry (%) 91 L 11/06/18 21:00 GENERAL: The patient is awake, alert, and fully oriented, in no acute distress. HEAD: Normal with no signs of trauma. EYES: PERRLA, EOMI, sclera anicteric, conjunctiva clear. ENT: Ears normal, oropharynx clear without exudates, dry mucous membranes. NECK: Trachea midline, full range of motion, supple. LUNGS: +wheezes bilaterally on all lung toth. HEART: Regular rate and rhythm, S1, S2 without murmur, rub or gallop. ABDOMEN: Soft, NT, ND, normoactive bowel sounds. Negative CVA tenderness. positive for Ileal conduit EXTREMITIES: 2+ pulses, warm, well-perfused, no edema. NEUROLOGICAL: AAOx3, Cranial nerves II through XII grossly intact. PSYCH: Normal mood, normal affect. SKIN: Warm, dry, normal turgor, +tattoos on the b/l UE/LE and abdomen CBCD WBC 7.6 K/mm3 (4.0-10.0) 11/06/18 08:45 RBC 4.70 M/mm3 (3.60-5.2) 11/06/18 08:45 Hgb 13.7 GM/dL (10.7-15.3) 11/06/18 08:45 Hct 41.5 % (32.4-45.2) 11/06/18 08:45 MCV 88.4 fl (80-96) 11/06/18 08:45 MCHC 33.0 g/dl (32.0-36.0) 11/06/18 08:45 RDW 14.8 % (11.6-15.6) 11/06/18 08:45 Plt Count 223 K/MM3 (134-434) 11/06/18 08:45 MPV 8.9 fl (7.5-11.1) 11/06/18 08:45 CMP Sodium 140 mmol/L (136-145) 11/07/18 05:50 Potassium 4.8 mmol/L (3.5-5.1) 11/07/18 05:50 Chloride 112 mmol/L (98-107) H 11/07/18 05:50 Carbon Dioxide 20 mmol/L (21-32) L 11/07/18 05:50 Anion Gap 7 MMOL/L (8-16) L 11/07/18 05:50 BUN 20 mg/dL (7-18) H 11/07/18 05:50 Creatinine 1.7 mg/dL (0.55-1.3) H 11/07/18 05:50 Creat Clearance w eGFR 32.65 (>60) 11/07/18 05:50 Random Glucose 97 mg/dL (74-106) 11/07/18 05:50 Calcium 8.6 mg/dL (8.5-10.1) 11/07/18 05:50 Total Bilirubin 0.2 mg/dL (0.2-1) 11/06/18 08:45 AST 15 U/L (15-37) 11/06/18 08:45 ALT 19 U/L (13-61) 11/06/18 08:45 Alkaline Phosphatase 75 U/L (45-117) 11/06/18 08:45 Total Protein 7.4 g/dl (6.4-8.2) 11/06/18 08:45 Albumin 3.5 g/dl (3.4-5.0) 11/06/18 08:45 Current Medications Generic Name Dose Route Start Last Admin Trade Name Freq PRN Reason Stop Dose Admin Acetaminophen 650 mg 11/06/18 03:28 11/06/18 17:52 Tylenol - PO 650 mg Q4H PRN Administration FEVER Albuterol/Ipratropium 1 amp 11/06/18 03:26 11/06/18 10:46 Duoneb - NEB 1 amp Q6H PRN Administration SHORTNESS OF BREATH Albuterol/Ipratropium 1 amp 11/06/18 12:00 11/06/18 20:10 Duoneb - NEB 1 amp RQID PATRICK Administration Budesonide/Formoterol Fumarate 2 puff 11/06/18 10:00 11/06/18 22:28 Symbicort 80/4.5mcg - IH 2 puff BID PATRICK Administration Heparin Sodium (Porcine) 5,000 unit 11/06/18 06:15 11/07/18 05:18 Heparin - SQ Not Given TID PATRICK Sodium Chloride 1,000 mls @ 100 mls/hr 11/06/18 09:45 11/06/18 10:16 Normal Saline - IV 100 mls/hr ASDIR PATRICK Administration Ceftriaxone Sodium 1 gm/ 50 mls @ 100 mls/hr 11/07/18 10:00 Dextrose IVPB DAILY [facility] Protocol Lactobacillus Acidophilus 1 tab 11/06/18 10:00 11/06/18 09:59 Bacid - PO 1 tab DAILY PATRICK Administration Oxycodone HCl 5 mg 11/06/18 09:46 11/06/18 17:53 Roxicodone - PO 5 mg Q6H PRN Administration PAIN LEVEL 7 - 10 Prednisone 40 mg 11/06/18 10:00 11/06/18 09:59 Deltasone - PO 40 mg DAILY PATRICK Administration Prochlorperazine Edisylate 5 mg 11/06/18 17:45 Compazine Injection - IVPB Q6H PRN NAUSEA Home Medications Medication Instructions Recorded Lactobacillus Acidophilus [Bacid -] 1 tab PO DAILY 30 Days #30 tab 10/05/18 Albuterol Sulfate Inhaler - 1 - 2 inh PO Q4H PRN #1 inhaler 10/16/18 [Ventolin HFA Inhaler -] Naproxen 1 tab PO Q12H 11/06/18 Microbiology 11/06/18 11:12 Blood - Peripheral Venous Blood Culture - Preliminary NO GROWTH OBTAINED AFTER 24 HOURS, INCUBATION TO CONTINUE FOR 4 DAYS. 11/06/18 10:55 Blood - Peripheral Venous Blood Culture - Preliminary NO GROWTH OBTAINED AFTER 24 HOURS, INCUBATION TO CONTINUE FOR 4 DAYS. 11/06/18 00:30 Urine - Urine Clean Catch Urine Culture - Preliminary Lactose Fermenting Neg Bacilli Pending Organism TECHNIQUE: Sequential axial images were obtained from the domes of the diaphragm through the symphysis pubis utilizing urinary tract calculi protocol. Evaluation of the lung bases benefits mild atelectatic changes within the right lower lobe. There is a 4 mm calcification within the lower pole of the right kidney consistent with a nonobstructing calculus. There is no evidence of additional calcifications within the kidneys or ureters suspicious for additional calculi. The patient is S/P cystectomy with an ileal conduit within the right lower quadrant. There is moderate bilateral renal cortical scarring and atrophy. There is also mild dilatation of both upper collecting systems and ureters down to the conduit. No obvious obstruction is suggested. No significant abnormalities of the liver, spleen, pancreas, or adrenal glands are identified. Calcified gallstones are identified within the gallbladder. There is no evidence of pneumoperitoneum, bowel obstruction or intra-abdominal abscess. There is no CT evidence of acute appendicitis or diverticulitis. There is an umbilical hernia containing nonobstructed loops of small bowel. Evaluation of the pelvis demonstrates an enlarged uterus, as well as a large right ovarian cyst. This cyst measures approximately 7.5 x 6.5 x 6.9 cm. Since a prior study of 10/01/2018, there has been little significant change. There is no evidence of acute bony pathology. IMPRESSION: 1. S/P cystectomy with right lower quadrant ileal conduit. 2. Mildly atrophic and scarred bilateral kidneys with mild hydronephrosis and hydroureter down to the condyle. No obvious obstruction suggested. 3. Right nephrolithiasis. 4. Enlarged uterus and larger right ovarian cyst. 5. No evidence of acute pathology or significant change since 10/01/2018. Please see above discussion. Reported By: Ermias Mittal MD 11/06/18 8613 ASSESSMENT AND PLAN: Patient is a 43yo female with PMHx of recurrent UTIs , nephrolithiasis, previous nephrostomy tubes, endometriosis, s/p ileal conduit, COPD , presented with acute COPD exacerbation and UTI. # Acute UTI with right lower quadrant ileal conduit: on IV antibiotics Rocephin will continue as per dr.Bobde NII waiting for culture and sensitivity s/p meropenem . On IVF # Acute COPD exacerbation . improved on Prednisone and continue nebs. and symbicort. # Terri on CKD : improved s/p IVF DVT PX : heparin
[2018-11-07] MEDS ORDERED: DEXTROSE 5%-WATER - 50 ML IVPB ONE (09:00)
[2018-11-07] MEDS ORDERED: cefTRIAXone SODIUM 1 GM VIAL ONE (09:00)
[2018-11-07] MEDS: predniSONE 20 MG TABLET (UD) PO SCH (09:52)
[2018-11-07] MEDS: CEFTRIAXONE 1 GM in DEXTROSE 5%-WATER - 50 ML IVPB SCH (09:52)
[2018-11-07] MEDS: LACTOBACILLUS ACIDOPHILUS 1 TABLET PO SCH (09:52)
[2018-11-07] MEDS: BUDESONIDE/FORMETEROL FUMARATE 80/4.5 mcg INHALER IH SCH ×2 (10:01→22:31)
[2018-11-07] MEDS: SODIUM CHLORIDE 1,000 ML IV SCH (10:01)
--- NOTE | 2018-11-07 11:06 | CON.GU ---
Consult Consult Specialty:: Urology - History of Present Illness Chief Complaint: Urinary Tract Infection, possible pyelonephritis, rt. renal calculus. Status post ileal conduit - History Source History Provided By: Patient Limitations to Obtaining History: No Limitations - Past Medical History Gastrointestinal: Yes: Hiatal Hernia, Other (ileal conduit; umbilical incisional hernia) Hepatobiliary: Yes: Cholelithiasis Renal/: Yes: Renal Inusuff (s/p urinary diversion, bilateral nephrostomies converted to ileal conduit ~2006 [facility]), Renal Calculi, UTI ...LMP: 05/05/18 Psych: Yes: Anxiety, Depression Endocrine: Yes: Other (prior abnormal TFTs) - Past Surgical History Past Surgical History: Yes: Cystectomy, Ileal Conduit - Alcohol/Substance Use Hx Alcohol Use: No History of Substance Use: reports: Marijuana (daily) Date of Last Use: 05/09/18 - Smoking History Smoking history: Current every day smoker Have you smoked in the past 12 months: Yes Aproximately how many cigarettes per day: 3 - Social History Usual Living Arrangement: Alone ADL: Independent History of Recent Travel: No Home Medications - Allergies Allergies/Adverse Reactions: Allergies Allergy/AdvReac Type Severity Reaction Status Date / Time No Known Allergies Allergy Verified 11/05/18 22:00 - Home Medications Home Medications: Ambulatory Orders Lactobacillus Acidophilus [Bacid -] 1 tab PO DAILY 30 Days #30 tab 10/05/18 Albuterol Sulfate Inhaler - [Ventolin HFA Inhaler -] 1 - 2 inh PO Q4H PRN #1 inhaler 10/16/18 Naproxen 1 tab PO Q12H 11/06/18 Family Disease History - Family Disease History Family Disease History: CA: Mother, Respiratory: Mother Physical Exam- Vital Signs: Vital Signs Temperature 97.9 F 11/07/18 06:00 Pulse Rate 69 11/07/18 06:00 Respiratory Rate 20 11/07/18 06:00 Blood Pressure 139/79 11/07/18 06:00 O2 Sat by Pulse Oximetry (%) 91 L 11/06/18 21:00 Labs: CBC, BMP 11/07/18 05:50 11/07/18 05:50 Assessment/Plan Pt. is well known to our practice. Hx of ileal conduit done at [facility]. She does have her bladder. She wants to have reversal of her ileal conduit. She does not want to go back to [facility]. At present she Possible pyelonephritis UTI Lactose fermenting. ID consult in progress. CT Scan reviewed. No change from prior studies. Mild dilatation of the collecting system normal in ileal conduit patients. No evidence of obstruction. Mild uremia also noted. No acute intervention. Pt can be discharged after treatment of infection. She will make appt. to see Dr. Castillo in the hospital to discuss her options. Thank you
[2018-11-07] MEDS: ALBUTEROL SO4 2.5/IPRATROPIUM 0.5 INH SOL 3 ML VIAL.NEB. NEB SCH ×4 (11:55→21:20)
--- NOTE | 2018-11-07 13:09 | PN ---
Progress Note, Physician History of Present Illness: feels little better still the flank pain present urine showing 2 organisms urology on case - Current Medication List Current Medications: Active Medications Acetaminophen (Tylenol -) 650 mg PO Q4H PRN PRN Reason: FEVER Last Admin: 11/06/18 17:52 Dose: 650 mg Albuterol/Ipratropium (Duoneb -) 1 amp NEB Q6H PRN PRN Reason: SHORTNESS OF BREATH Last Admin: 11/06/18 10:46 Dose: 1 amp Albuterol/Ipratropium (Duoneb -) 1 amp NEB RQID PATRICK Last Admin: 11/06/18 20:10 Dose: 1 amp Budesonide/Formoterol Fumarate (Symbicort 80/4.5mcg -) 2 puff IH BID [facility] Last Admin: 11/07/18 10:01 Dose: 2 puff Heparin Sodium (Porcine) (Heparin -) 5,000 unit SQ TID [facility] Last Admin: 11/07/18 05:18 Dose: Not Given Sodium Chloride (Normal Saline -) 1,000 mls @ 100 mls/hr IV ASDIR [facility] Last Admin: 11/07/18 10:01 Dose: 100 mls/hr Ceftriaxone Sodium 1 gm/ (Dextrose) 50 mls @ 100 mls/hr IVPB DAILY [facility]; Protocol Last Admin: 11/07/18 09:52 Dose: 100 mls/hr Lactobacillus Acidophilus (Bacid -) 1 tab PO DAILY [facility] Last Admin: 11/07/18 09:52 Dose: 1 tab Oxycodone HCl (Roxicodone -) 5 mg PO Q6H PRN PRN Reason: PAIN LEVEL 7 - 10 Last Admin: 11/06/18 17:53 Dose: 5 mg Prednisone (Deltasone -) 40 mg PO DAILY [facility] Last Admin: 11/07/18 09:52 Dose: 40 mg Prochlorperazine Edisylate (Compazine Injection -) 5 mg IVPB Q6H PRN PRN Reason: NAUSEA - Objective Vital Signs: Vital Signs Temperature 97.9 F 11/07/18 06:00 Pulse Rate 69 11/07/18 06:00 Respiratory Rate 20 11/07/18 06:00 Blood Pressure 139/79 11/07/18 06:00 O2 Sat by Pulse Oximetry (%) 91 L 11/06/18 21:00 Constitutional: Yes: No Distress, Calm Cardiovascular: Yes: Regular Rate and Rhythm Respiratory: Yes: Regular, CTA Bilaterally Gastrointestinal: Yes: Normal Bowel Sounds, Soft Musculoskeletal: Yes: WNL Extremities: Yes: WNL Wound/Incision: Yes: Other (urostomy present) Neurological: Yes: Alert, Oriented Psychiatric: Yes: Alert, Oriented Labs: CBC, BMP 11/07/18 05:50 11/07/18 05:50 INR, PTT INR 1.03 (0.83-1.09) 11/05/18 23:50 Assessment/Plan uti r/o pyelo abd pain copd ashanti plan continue ceftriaxone for now till we get the results spoke with the family and the patient rest as per the team
--- NOTE | 2018-11-07 13:54 | PN ---
Physical Exam: SUBJECTIVE: Patient seen and examined at bedside this morning. Patient reported her back pain is better today. Yesterday afternoon, patient was asking for morphine for her back pain and threatened to leave AMA. She calmed down eventually. Overnight, she received Benadryl and was able to sleep. Today, she reported her back pain has improved. Denies headache, dizziness, fever, chills, chest pain, shortness of breath, abdominal pain, diarrhea, constipation. OBJECTIVE: Vital Signs Period Temp Pulse Resp BP Sys/Minor Pulse Ox Last 24 Hr 97.6 F-97.9 F 61-69 18-20 134-151/79-94 91 GENERAL: The patient is awake, alert, and fully oriented, in no acute distress. HEAD: Normal with no signs of trauma. EYES: PERRLA, EOMI, sclera anicteric, conjunctiva clear. ENT: Ears normal, nares patent, oropharynx clear without exudates, dry mucous membranes. NECK: Trachea midline, full range of motion, supple. LUNGS: +scattered wheezes bilaterally HEART: Regular rate and rhythm, S1, S2 without murmur, rub or gallop. ABDOMEN: Soft, nontender, nondistended, normoactive bowel sounds. Negative CVA tenderness. EXTREMITIES: 2+ pulses, warm, well-perfused, no edema. MSK: +bilateral paraspinal tenderness on the lumbar area NEUROLOGICAL: AAOx3, Cranial nerves II through XII grossly intact. Motor strength 5/5, sensation intact. Normal speech, gait not observed. PSYCH: Normal mood, normal affect. SKIN: Warm, dry, normal turgor, +tattoos on the b/l UE/LE and abdomen Laboratory Results - last 24 hr 11/06/18 11/07/18 11/07/18 08:45 05:50 05:50 WBC 11.6 H RBC 4.43 Hgb 13.7 Hct 38.9 MCV 87.9 MCH 31.0 MCHC 35.3 RDW 15.0 Plt Count 232 MPV 9.7 Sodium 140 Potassium 4.8 Chloride 112 H Carbon Dioxide 20 L Anion Gap 7 L BUN 20 H Creatinine 1.7 H Creat Clearance w eGFR 32.65 Random Glucose 97 Calcium 8.6 Phosphorus 3.7 Magnesium 2.2 PTH Intact 105 H Active Medications Generic Name Dose Route Start Last Admin Trade Name Freq PRN Reason Stop Dose Admin Acetaminophen 650 mg 11/06/18 03:28 11/06/18 17:52 Tylenol - PO 650 mg Q4H PRN Administration FEVER Albuterol/Ipratropium 1 amp 11/06/18 03:26 11/06/18 10:46 Duoneb - NEB 1 amp Q6H PRN Administration SHORTNESS OF BREATH Albuterol/Ipratropium 1 amp 11/06/18 12:00 11/07/18 11:55 Duoneb - NEB 1 amp RQID PATRICK Administration Budesonide/Formoterol Fumarate 2 puff 11/06/18 10:00 11/07/18 10:01 Symbicort 80/4.5mcg - IH 2 puff BID PATRICK Administration Heparin Sodium (Porcine) 5,000 unit 11/06/18 06:15 11/07/18 05:18 Heparin - SQ Not Given TID PATRICK Sodium Chloride 1,000 mls @ 100 mls/hr 11/06/18 09:45 11/07/18 10:01 Normal Saline - IV 100 mls/hr ASDIR PATRICK Administration Ceftriaxone Sodium 1 gm/ 50 mls @ 100 mls/hr 11/07/18 10:00 11/07/18 09:52 Dextrose IVPB 100 mls/hr DAILY PATRICK Administration Protocol Lactobacillus Acidophilus 1 tab 11/06/18 10:00 11/07/18 09:52 Bacid - PO 1 tab DAILY PATRICK Administration Oxycodone HCl 5 mg 11/06/18 09:46 11/06/18 17:53 Roxicodone - PO 5 mg Q6H PRN Administration PAIN LEVEL 7 - 10 Prednisone 40 mg 11/06/18 10:00 11/07/18 09:52 Deltasone - PO 40 mg DAILY PATRICK Administration Prochlorperazine Edisylate 5 mg 11/06/18 17:45 Compazine Injection - IVPB Q6H PRN NAUSEA ASSESSMENT/PLAN: Patient is a 43 year old female with past medical history of kidney stones, endometriosis, recurrent UTIs (ESBL Klebsiella and E. coli), COPD, prior b/l nephrostomy tubes (20 years ago), s/p removal of nephrostomy tubes and placement of ileal conduit with RLQ urostomy bag, presented with bilateral flank pain and wheezing. #UTI, with possible pyelonephritis -CT A/P: s/p cystectomy with RLQ ileal conduit. Mildly atrophic and scarred bilateral kidneys with mild hydronephrosis and hydroureter down to the condyle. No obvious obstruction. Right nephrolithiasis. Enlarged uterus and larger right ovarian cyst. No evidence of acute pathology or significant change since . -UA: LE 3+, WBC 211, many bacteria, many yeast, Blood 1+, RBC 21 -Given IV Meropenem 500mg at the ED. Received Ertapenem 1 gm 1 dose. -ID (Dr. Mercado) consulted. Recommendations appreciated. -Will start IV Ceftriaxone 1gm daily pending cultures. -Urine cx growing gram negative lactose endorsement clerk and another organism. Sensitivities pending. -Urology (Dr. Castillo) consulted. Recommendations appreciated. -No acute intervention indicated at this time. -Patient will follow-up with Dr. Castillo as outpatient to discuss her options with the ileal conduit. #Adnexal cyst -Follows up with [facility] as outpatient -Has been stable since last CT done #JULIO on CKD -likely pre-renal 2/2 dehydration from poor intake and vomiting -BUN/Cr 23/2.1 -IV NS @ 100ml #COPD -Duonebs RQID STA and q6h PRN -Prednisone 40mg decreased to 30mg daily. -Symbicort 80/4.5 BID #Low back pain, likely MSK -bilateral paraspinal tenderness, negative CVA tenderness -Tylenol 650 mg q6 PRN and Oxycodone 5mg q6 PRN for pain -Will continue to monitor #FEN -IV NS @100ml/hr -electrolytes wnl, routine bmp monitoring -Sodium controlled diet #Prophylaxis -Heparin 5000 units sq tid #Disposition -full code -med-surg -contact isolation Visit type - Emergency Visit Emergency Visit: Yes ED Registration Date: 11/06/18 Care time: The patient presented to the Emergency Department on the above date and was hospitalized for further evaluation of their emergent condition. - New Patient This patient is new to me today: Yes Date on this admission: 11/07/18 - Critical Care Critical Care patient: No
[2018-11-07] MEDS ORDERED: predniSONE 10 MG TABLET (UD) PO SCH (15:39)
[2018-11-07] MEDS ORDERED: diphenhydrAMINE HCL 25 MG CAPSULE (FP) PO ONE (23:00)
[2018-11-07] MEDS: oxyCODONE HCL 5 MG TABLET PO PRN (23:11)
[2018-11-07] MEDS: ACETAMINOPHEN 325 MG TABLET (FP) PO PRN (23:11)
[2018-11-08] MEDS: HEPARIN NA (PORCINE) 5,000 UNITS/ML 1ML VIAL SQ SCH ×3 (06:24→23:06)
[2018-11-08] MEDS: ALBUTEROL SO4 2.5/IPRATROPIUM 0.5 INH SOL 3 ML VIAL.NEB. NEB SCH ×4 (07:30→20:07)
[2018-11-08] MEDS ORDERED: DEXTROSE 5%-WATER - 50 ML IVPB ONE (08:29)
[2018-11-08] MEDS ORDERED: cefTRIAXone SODIUM 1 GM VIAL ONE (08:29)
[2018-11-08 09:36] LABS: BASO % 0.2 % (0-2.0); EOS % 0.4 % (0-4.5); HEMATOCRIT 39.2 % (32.4-45.2); HEMOGLOBIN 13.7 GM/dL (10.7-15.3); LYMPH % 14.4 % (8-40); MCH 31.1 pg (25.7-33.7); MEAN CELL VOLUME 88.9 fl (80-96); MEAN PLT VOLUME 9.1 fl (7.5-11.1); MONO % 4.9 % (3.8-10.2); NEUT % 80.1 % (42.8-82.8); PLATELET COUNT 218 K/MM3 (134-434); RBC 4.41 M/mm3 (3.60-5.2); RDW 14.7 % (11.6-15.6); WHITE BLOOD COUNT 9.4 K/mm3 (4.0-10.0)
--- NOTE | 2018-11-08 09:52 | PN ---
Teaching Attending Note Name of Resident: Alaina Singleton ATTENDING PHYSICIAN STATEMENT I saw and evaluated the patient. I reviewed the resident's note and discussed the case with the resident. I agree with the resident's findings and plan as documented. SUBJECTIVE: Patient feels better and wants to go home. OBJECTIVE: Vital Signs Temperature 97.7 F 11/07/18 22:00 Pulse Rate 64 11/07/18 22:00 Respiratory Rate 18 11/07/18 22:00 Blood Pressure 128/83 11/07/18 22:00 O2 Sat by Pulse Oximetry (%) 98 11/07/18 21:00 GENERAL: The patient is awake, alert, and fully oriented, in no acute distress. HEAD: Normal with no signs of trauma. EYES: PERRLA, EOMI, sclera anicteric, conjunctiva clear. ENT: Ears normal, oropharynx clear without exudates, dry mucous membranes. NECK: Trachea midline, full range of motion, supple. LUNGS: positive for wheezing bilaterally on all lung toth. HEART: Regular rate and rhythm, S1, S2 without murmur, rub or gallop. ABDOMEN: Soft, NT, ND, normoactive bowel sounds. Negative CVA tenderness. positive for Ileal conduit EXTREMITIES: 2+ pulses, warm, well-perfused, no edema. NEUROLOGICAL: AAOx3, Cranial nerves II through XII grossly intact. PSYCH: Normal mood, normal affect. SKIN: Warm, dry, normal turgor, +tattoos on the b/l UE/LE and abdomen CBCD WBC 9.4 K/mm3 (4.0-10.0) 11/08/18 09:20 RBC 4.41 M/mm3 (3.60-5.2) 11/08/18 09:20 Hgb 13.7 GM/dL (10.7-15.3) 11/08/18 09:20 Hct 39.2 % (32.4-45.2) 11/08/18 09:20 MCV 88.9 fl (80-96) 11/08/18 09:20 MCHC 35.0 g/dl (32.0-36.0) 11/08/18 09:20 RDW 14.7 % (11.6-15.6) 11/08/18 09:20 Plt Count 218 K/MM3 (134-434) 11/08/18 09:20 MPV 9.1 fl (7.5-11.1) 11/08/18 09:20 CMP Sodium 140 mmol/L (136-145) 11/07/18 05:50 Potassium 4.8 mmol/L (3.5-5.1) 11/07/18 05:50 Chloride 112 mmol/L (98-107) H 11/07/18 05:50 Carbon Dioxide 20 mmol/L (21-32) L 11/07/18 05:50 Anion Gap 7 MMOL/L (8-16) L 11/07/18 05:50 BUN 20 mg/dL (7-18) H 11/07/18 05:50 Creatinine 1.7 mg/dL (0.55-1.3) H 11/07/18 05:50 Creat Clearance w eGFR 32.65 (>60) 11/07/18 05:50 Random Glucose 97 mg/dL (74-106) 11/07/18 05:50 Calcium 8.6 mg/dL (8.5-10.1) 11/07/18 05:50 Total Bilirubin 0.2 mg/dL (0.2-1) 11/06/18 08:45 AST 15 U/L (15-37) 11/06/18 08:45 ALT 19 U/L (13-61) 11/06/18 08:45 Alkaline Phosphatase 75 U/L (45-117) 11/06/18 08:45 Total Protein 7.4 g/dl (6.4-8.2) 11/06/18 08:45 Albumin 3.5 g/dl (3.4-5.0) 11/06/18 08:45 Current Medications Generic Name Dose Route Start Last Admin Trade Name Freq PRN Reason Stop Dose Admin Acetaminophen 650 mg 11/06/18 03:28 11/07/18 23:11 Tylenol - PO 650 mg Q4H PRN Administration FEVER Albuterol/Ipratropium 1 amp 11/06/18 03:26 11/06/18 10:46 Duoneb - NEB 1 amp Q6H PRN Administration SHORTNESS OF BREATH Albuterol/Ipratropium 1 amp 11/06/18 12:00 11/08/18 07:30 Duoneb - NEB Not Given RQID PATRICK Budesonide/Formoterol Fumarate 2 puff 11/06/18 10:00 11/07/18 22:31 Symbicort 80/4.5mcg - IH 2 puff BID PATRICK Administration Heparin Sodium (Porcine) 5,000 unit 11/06/18 06:15 11/08/18 06:24 Heparin - SQ Not Given TID PATRICK Sodium Chloride 1,000 mls @ 100 mls/hr 11/06/18 09:45 11/07/18 10:01 Normal Saline - IV 100 mls/hr ASDIR PAT[facility] Administration Ceftriaxone Sodium 1 gm/ 50 mls @ 100 mls/hr 11/07/18 10:00 11/07/18 09:52 Dextrose IVPB 100 mls/hr DAILY PAT[facility] Administration Protocol Lactobacillus Acidophilus 1 tab 11/06/18 10:00 11/07/18 09:52 Bacid - PO 1 tab DAILY PAT[facility]ICK Administration Oxycodone HCl 5 mg 11/06/18 09:46 11/07/18 23:11 Roxicodone - PO 5 mg Q6H PRN Administration PAIN LEVEL 7 - 10 Prednisone 30 mg 11/07/18 15:39 Deltasone - PO DAILY PATRICK Prochlorperazine Edisylate 5 mg 11/06/18 17:45 Compazine Injection - IVPB Q6H PRN NAUSEA Home Medications Medication Instructions Recorded Lactobacillus Acidophilus [Bacid -] 1 tab PO DAILY 30 Days #30 tab 10/05/18 Albuterol Sulfate Inhaler - 1 - 2 inh PO Q4H PRN #1 inhaler 10/16/18 [Ventolin HFA Inhaler -] Naproxen 1 tab PO Q12H 11/06/18 Microbiology 11/06/18 00:30 Urine - Urine Clean Catch Urine Culture - Preliminary Citrobacter Freundii Complex Staphylococcus Species Pending Organism 11/06/18 11:12 Blood - Peripheral Venous Blood Culture - Preliminary NO GROWTH OBTAINED AFTER 24 HOURS, INCUBATION TO CONTINUE FOR 4 DAYS. 11/06/18 10:55 Blood - Peripheral Venous Blood Culture - Preliminary NO GROWTH OBTAINED AFTER 24 HOURS, INCUBATION TO CONTINUE FOR 4 DAYS. TECHNIQUE: Sequential axial images were obtained from the domes of the diaphragm through the symphysis pubis utilizing urinary tract calculi protocol. Evaluation of the lung bases benefits mild atelectatic changes within the right lower lobe. There is a 4 mm calcification within the lower pole of the right kidney consistent with a nonobstructing calculus. There is no evidence of additional calcifications within the kidneys or ureters suspicious for additional calculi. The patient is S/P cystectomy with an ileal conduit within the right lower quadrant. There is moderate bilateral renal cortical scarring and atrophy. There is also mild dilatation of both upper collecting systems and ureters down to the conduit. No obvious obstruction is suggested. No significant abnormalities of the liver, spleen, pancreas, or adrenal glands are identified. Calcified gallstones are identified within the gallbladder. There is no evidence of pneumoperitoneum, bowel obstruction or intra-abdominal abscess. There is no CT evidence of acute appendicitis or diverticulitis. There is an umbilical hernia containing nonobstructed loops of small bowel. Evaluation of the pelvis demonstrates an enlarged uterus, as well as a large right ovarian cyst. This cyst measures approximately 7.5 x 6.5 x 6.9 cm. Since a prior study of 10/01/2018, there has been little significant change. There is no evidence of acute bony pathology. IMPRESSION: 1. S/P cystectomy with right lower quadrant ileal conduit. 2. Mildly atrophic and scarred bilateral kidneys with mild hydronephrosis and hydroureter down to the condyle. No obvious obstruction suggested. 3. Right nephrolithiasis. 4. Enlarged uterus and larger right ovarian cyst. 5. No evidence of acute pathology or significant change since 10/01/2018. Please see above discussion. Reported By: Ermias Mittal MD 11/06/18 [id number] ASSESSMENT AND PLAN: Patient is a 43yo female with PMHx of recurrent UTIs , nephrolithiasis, previous nephrostomy tubes, endometriosis, s/p ileal conduit, COPD , presented with acute COPD exacerbation and UTI. # Acute UTI with right lower quadrant ileal conduit: on IV antibiotics Rocephin will continue as per NII, waiting for sensitivity s/p meropenem . On IVF # Acute COPD exacerbation . improved on Prednisone and continue nebs. and symbicort. # Terri on CKD : improved s/p IVF DVT PX : heparin possible discharge in am
[2018-11-08] MEDS: CEFTRIAXONE 1 GM in DEXTROSE 5%-WATER - 50 ML IVPB SCH (10:20)
[2018-11-08] MEDS: SODIUM CHLORIDE 1,000 ML IV SCH ×2 (10:21→16:13)
[2018-11-08 10:32] LABS: ANION GAP 8 MMOL/L (8-16); BLOOD UREA NITROGEN 26 mg/dL (7-18); CALCIUM 8.5 mg/dL (8.5-10.1); CHLORIDE 111 mmol/L (98-107); CO2 21 mmol/L (21-32); CREATININE 1.9 mg/dL (0.55-1.3); GLUCOSE,RANDOM 83 mg/dL (74-106); MAGNESIUM 2.1 mg/dL (1.8-2.4); PHOSPHOROUS 3.4 mg/dL (2.5-4.9); POTASSIUM 4.4 mmol/L (3.5-5.1); SODIUM 140 mmol/L (136-145)
[2018-11-08] MEDS: LACTOBACILLUS ACIDOPHILUS 1 TABLET PO SCH (11:07)
[2018-11-08] MEDS: BUDESONIDE/FORMETEROL FUMARATE 80/4.5 mcg INHALER IH SCH ×2 (11:08→23:03)
--- NOTE | 2018-11-08 14:02 | PN ---
Progress Note, Physician History of Present Illness: patient stable no complaints still awaiting organism - Current Medication List Current Medications: Active Medications Acetaminophen (Tylenol -) 650 mg PO Q4H PRN PRN Reason: FEVER Last Admin: 11/07/18 23:11 Dose: 650 mg Albuterol/Ipratropium (Duoneb -) 1 amp NEB Q6H PRN PRN Reason: SHORTNESS OF BREATH Last Admin: 11/06/18 10:46 Dose: 1 amp Albuterol/Ipratropium (Duoneb -) 1 amp NEB RQID [facility] Last Admin: 11/08/18 11:23 Dose: 1 amp Budesonide/Formoterol Fumarate (Symbicort 80/4.5mcg -) 2 puff IH BID [facility] Last Admin: 11/08/18 11:08 Dose: 2 puff Heparin Sodium (Porcine) (Heparin -) 5,000 unit SQ TID [facility] Last Admin: 11/08/18 13:57 Dose: Not Given Sodium Chloride (Normal Saline -) 1,000 mls @ 100 mls/hr IV ASDIR [facility] Last Admin: 11/08/18 10:21 Dose: Not Given Ceftriaxone Sodium 1 gm/ (Dextrose) 50 mls @ 100 mls/hr IVPB DAILY [facility]; Protocol Last Admin: 11/08/18 10:20 Dose: 100 mls/hr Lactobacillus Acidophilus (Bacid -) 1 tab PO DAILY [facility] Last Admin: 11/08/18 11:07 Dose: 1 tab Oxycodone HCl (Roxicodone -) 5 mg PO Q6H PRN PRN Reason: PAIN LEVEL 7 - 10 Last Admin: 11/07/18 23:11 Dose: 5 mg Prednisone (Deltasone -) 30 mg PO DAILY [facility] Last Admin: 11/08/18 11:07 Dose: 30 mg Prochlorperazine Edisylate (Compazine Injection -) 5 mg IVPB Q6H PRN PRN Reason: NAUSEA - Objective Vital Signs: Vital Signs Temperature 98.4 F 11/08/18 10:00 Pulse Rate 62 11/08/18 10:00 Respiratory Rate 18 11/08/18 10:00 Blood Pressure 131/89 11/08/18 10:00 O2 Sat by Pulse Oximetry (%) 99 11/08/18 09:00 Constitutional: Yes: No Distress, Calm Cardiovascular: Yes: Regular Rate and Rhythm Respiratory: Yes: Regular, CTA Bilaterally Gastrointestinal: Yes: Normal Bowel Sounds, Soft Genitourinary: Yes: Other Musculoskeletal: Yes: WNL Extremities: Yes: WNL Neurological: Yes: Alert, Oriented Psychiatric: Yes: Alert, Oriented Labs: CBC, BMP 11/08/18 09:20 11/08/18 09:20 INR, PTT INR 1.03 (0.83-1.09) 11/05/18 23:50 Assessment/Plan uti r/o pyelo abd pain copd ashanti plan continue current mgmt awaiting for organism
--- NOTE | 2018-11-08 15:54 | PN ---
Physical Exam: SUBJECTIVE: Patient seen and examined at bedside this morning. She is not in a very good mood today, reports frustration and wants to go home. Dr. Mercado saw her in the afternoon, explained to her that patient can not go home yet as she has pending cultures. Patient agreed to staying for now. Denies fever, chills, back pain, nausea, vomiting, chest pain, shortness of breath, abdominal pain, diarrhea, constipation. OBJECTIVE: Vital Signs Period Temp Pulse Resp BP Sys/Minor Pulse Ox Last 24 Hr 97.7 F-98.4 F 62-69 18-18 119-147/70-89 98-99 GENERAL: The patient is awake, alert, and fully oriented, in no acute distress. HEAD: Normal with no signs of trauma. EYES: PERRLA, EOMI, sclera anicteric, conjunctiva clear. ENT: Ears normal, nares patent, oropharynx clear without exudates, dry mucous membranes. NECK: Trachea midline, full range of motion, supple. LUNGS: +scattered wheezes bilaterally HEART: Regular rate and rhythm, S1, S2 without murmur, rub or gallop. ABDOMEN: Soft, nontender, nondistended, normoactive bowel sounds. Negative CVA tenderness. EXTREMITIES: 2+ pulses, warm, well-perfused, no edema. MSK: +bilateral paraspinal tenderness on the lumbar area NEUROLOGICAL: AAOx3, Cranial nerves II through XII grossly intact. Motor strength 5/5, sensation intact. Normal speech, gait not observed. PSYCH: Normal mood, normal affect. SKIN: Warm, dry, normal turgor, +tattoos on the b/l UE/LE and abdomen Laboratory Results - last 24 hr 11/08/18 11/08/18 09:20 09:20 WBC 9.4 RBC 4.41 Hgb 13.7 Hct 39.2 MCV 88.9 MCH 31.1 MCHC 35.0 RDW 14.7 Plt Count 218 MPV 9.1 Absolute Neuts (auto) 7.5 Neutrophils % 80.1 Lymphocytes % 14.4 D Monocytes % 4.9 D Eosinophils % 0.4 Basophils % 0.2 Nucleated RBC % 0 Sodium 140 Potassium 4.4 Chloride 111 H Carbon Dioxide 21 Anion Gap 8 BUN 26 H Creatinine 1.9 H Creat Clearance w eGFR 28.72 Random Glucose 83 Calcium 8.5 Phosphorus 3.4 Magnesium 2.1 Active Medications Generic Name Dose Route Start Last Admin Trade Name Freq PRN Reason Stop Dose Admin Acetaminophen 650 mg 11/06/18 03:28 11/07/18 23:11 Tylenol - PO 650 mg Q4H PRN Administration FEVER Albuterol/Ipratropium 1 amp 11/06/18 03:26 11/06/18 10:46 Duoneb - NEB 1 amp Q6H PRN Administration SHORTNESS OF BREATH Albuterol/Ipratropium 1 amp 11/06/18 12:00 11/08/18 15:36 Duoneb - NEB 1 amp RQID PATRICK Administration Budesonide/Formoterol Fumarate 2 puff 11/06/18 10:00 11/08/18 11:08 Symbicort 80/4.5mcg - IH 2 puff BID PATRICK Administration Heparin Sodium (Porcine) 5,000 unit 11/06/18 06:15 11/08/18 13:57 Heparin - SQ Not Given TID PATRICK Sodium Chloride 1,000 mls @ 100 mls/hr 11/06/18 09:45 11/08/18 10:21 Normal Saline - IV Not Given ASDIR PATRICK Ceftriaxone Sodium 1 gm/ 50 mls @ 100 mls/hr 11/07/18 10:00 11/08/18 10:20 Dextrose IVPB 100 mls/hr DAILY PATRICK Administration Protocol Lactobacillus Acidophilus 1 tab 11/06/18 10:00 11/08/18 11:07 Bacid - PO 1 tab DAILY PATRICK Administration Oxycodone HCl 5 mg 11/06/18 09:46 11/07/18 23:11 Roxicodone - PO 5 mg Q6H PRN Administration PAIN LEVEL 7 - 10 Prednisone 30 mg 11/07/18 15:39 11/08/18 11:07 Deltasone - PO 30 mg DAILY PATRICK Administration Prochlorperazine Edisylate 5 mg 11/06/18 17:45 Compazine Injection - IVPB Q6H PRN NAUSEA ASSESSMENT/PLAN: Patient is a 43 year old female with past medical history of kidney stones, endometriosis, recurrent UTIs (ESBL Klebsiella and E. coli), COPD, prior b/l nephrostomy tubes (20 years ago), s/p removal of nephrostomy tubes and placement of ileal conduit with RLQ urostomy bag, presented with bilateral flank pain and wheezing. #UTI, with possible pyelonephritis -CT A/P: s/p cystectomy with RLQ ileal conduit. Mildly atrophic and scarred bilateral kidneys with mild hydronephrosis and hydroureter down to the condyle. No obvious obstruction. Right nephrolithiasis. Enlarged uterus and larger right ovarian cyst. No evidence of acute pathology or significant change since . -UA: LE 3+, WBC 211, many bacteria, many yeast, Blood 1+, RBC 21 -Urine culture: Citrobacter freundii, Staph organism, another pending organism -ID (Dr. Mercado) consulted. Recommendations appreciated. -Continue IV Ceftriaxone 1gm daily pending cultures. -Will await completion of culture and sensitivities. Patient in agreement to stay. -Urology (Dr. Castillo) consulted. Recommendations appreciated. -No acute intervention indicated at this time. -Patient will follow-up with Dr. Castillo as outpatient to discuss her options with the ileal conduit. #Adnexal cyst -Follows up with [facility] as [facility] -Has been stable since last CT done #JULIO on CKD -likely pre-renal 2/2 dehydration from poor intake and vomiting -IV NS @ 100ml #COPD -Duonebs RQID STA and q6h PRN -Prednisone 40mg decreased to 30mg daily. -Symbicort 80/4.5 BID #Low back pain, likely MSK -bilateral paraspinal tenderness, negative CVA tenderness -Tylenol 650 mg q6 PRN and Oxycodone 5mg q6 PRN for pain -Will continue to monitor #FEN -IV NS @100ml/hr -electrolytes wnl, routine bmp monitoring -Sodium controlled diet #Prophylaxis -Heparin 5000 units sq tid #Disposition -full code -med-surg -contact isolation Visit type - Emergency Visit Emergency Visit: Yes ED Registration Date: 11/06/18 Care time: The patient presented to the Emergency Department on the above date and was hospitalized for further evaluation of their emergent condition. - New Patient This patient is new to me today: No - Critical Care Critical Care patient: No
[2018-11-08] MEDS ORDERED: predniSONE 10 MG TABLET (UD) PO SCH (21:44)
[2018-11-08] MEDS ORDERED: diphenhydrAMINE HCL 25 MG CAPSULE (FP) PO ONE (22:01)
[2018-11-08] MEDS: ALBUTEROL SO4 2.5/IPRATROPIUM 0.5 INH SOL 3 ML VIAL.NEB. NEB PRN (23:12)
[2018-11-09] MEDS ORDERED: ALBUTEROL SO4 0.083% IH SOL 2.5 MG/3 ML VIAL.NEB. NEB ONE (01:08)
[2018-11-09] MEDS: SODIUM CHLORIDE 1,000 ML IV SCH ×3 (02:13→11:17)
[2018-11-09] MEDS: HEPARIN NA (PORCINE) 5,000 UNITS/ML 1ML VIAL SQ SCH ×2 (05:39→14:35)
[2018-11-09] MEDS: ALBUTEROL SO4 2.5/IPRATROPIUM 0.5 INH SOL 3 ML VIAL.NEB. NEB SCH ×3 (07:26→15:34)
[2018-11-09] MEDS ORDERED: cefTRIAXone SODIUM 1 GM VIAL ONE (08:00)
[2018-11-09] MEDS ORDERED: DEXTROSE 5%-WATER - 50 ML IVPB ONE (08:00)
[2018-11-09 09:08] LABS: HEMATOCRIT 37.8 % (32.4-45.2); HEMOGLOBIN 13.2 GM/dL (10.7-15.3); MEAN CELL VOLUME 88.6 fl (80-96); PLATELET COUNT 213 K/MM3 (134-434); RBC 4.26 M/mm3 (3.60-5.2); RDW 14.8 % (11.6-15.6); WHITE BLOOD COUNT 8.6 K/mm3 (4.0-10.0)
[2018-11-09] MEDS: CEFTRIAXONE 1 GM in DEXTROSE 5%-WATER - 50 ML IVPB SCH (10:15)
[2018-11-09 10:23] LABS: ANION GAP 9 MMOL/L (8-16); BLOOD UREA NITROGEN 21 mg/dL (7-18); CALCIUM 8.5 mg/dL (8.5-10.1); CHLORIDE 112 mmol/L (98-107); CO2 21 mmol/L (21-32); CREATININE 1.7 mg/dL (0.55-1.3); GLUCOSE,RANDOM 68 mg/dL (74-106); PHOSPHOROUS 3.9 mg/dL (2.5-4.9); SODIUM 142 mmol/L (136-145)
[2018-11-09] MEDS: LACTOBACILLUS ACIDOPHILUS 1 TABLET PO SCH (11:16)
[2018-11-09] MEDS: BUDESONIDE/FORMETEROL FUMARATE 80/4.5 mcg INHALER IH SCH (11:20)
[2018-11-09] MEDS: oxyCODONE HCL 5 MG TABLET PO PRN (12:04)
[2018-11-09] MEDS: ACETAMINOPHEN 325 MG TABLET (FP) PO PRN (12:05)
--- NOTE | 2018-11-09 14:00 | PN ---
Progress Note, Physician History of Present Illness: doing well back pain has resolved - Current Medication List Current Medications: Active Medications Acetaminophen (Tylenol -) 650 mg PO Q4H PRN PRN Reason: FEVER Last Admin: 11/09/18 12:05 Dose: 650 mg Albuterol/Ipratropium (Duoneb -) 1 amp NEB Q6H PRN PRN Reason: SHORTNESS OF BREATH Last Admin: 11/08/18 23:12 Dose: 1 amp Albuterol/Ipratropium (Duoneb -) 1 amp NEB RQID [facility] Last Admin: 11/09/18 12:09 Dose: Not Given Budesonide/Formoterol Fumarate (Symbicort 80/4.5mcg -) 2 puff IH BID [facility] Last Admin: 11/09/18 11:20 Dose: 2 puff Heparin Sodium (Porcine) (Heparin -) 5,000 unit SQ TID [facility] Last Admin: 11/09/18 05:39 Dose: Not Given Sodium Chloride (Normal Saline -) 1,000 mls @ 100 mls/hr IV ASDIR [facility] Last Admin: 11/09/18 11:17 Dose: 100 mls/hr Ceftriaxone Sodium 1 gm/ (Dextrose) 50 mls @ 100 mls/hr IVPB DAILY [facility]; Protocol Last Admin: 11/09/18 10:15 Dose: 100 mls/hr Lactobacillus Acidophilus (Bacid -) 1 tab PO DAILY [facility] Last Admin: 11/09/18 11:16 Dose: 1 tab Oxycodone HCl (Roxicodone -) 5 mg PO Q6H PRN PRN Reason: PAIN LEVEL 7 - 10 Last Admin: 11/09/18 12:04 Dose: 5 mg Prednisone (Deltasone -) 20 mg PO DAILY [facility] Last Admin: 11/09/18 11:16 Dose: 20 mg Prochlorperazine Edisylate (Compazine Injection -) 5 mg IVPB Q6H PRN PRN Reason: NAUSEA - Objective Vital Signs: Vital Signs Temperature 97.9 F 11/09/18 09:00 Pulse Rate 62 11/09/18 09:00 Respiratory Rate 18 11/09/18 09:00 Blood Pressure 148/76 11/09/18 09:00 O2 Sat by Pulse Oximetry (%) 95 11/09/18 09:00 Constitutional: Yes: No Distress, Calm Cardiovascular: Yes: Regular Rate and Rhythm Respiratory: Yes: Regular, CTA Bilaterally Gastrointestinal: Yes: Normal Bowel Sounds, Soft Genitourinary: Yes: Other (urostomy in place) Musculoskeletal: Yes: WNL Extremities: Yes: WNL Neurological: Yes: Alert, Oriented Psychiatric: Yes: Alert, Oriented Labs: CBC, BMP 11/09/18 08:35 11/09/18 08:35 INR, PTT INR 1.03 (0.83-1.09) 11/05/18 23:50 Assessment/Plan uti r/o pyelo abd pain copd ashanti plan continue current mgmt patient can be discharged on augmentin 500 mg bid for 5 more days monitor creatinine rest as per the team
[2018-11-09 15:21] VITALS: BP 146/93; PULSE 66; TEMP 98.1
--- NOTE | 2018-11-09 15:27 | PN ---
Teaching Attending Note Name of Resident: Alaina Singleton ATTENDING PHYSICIAN STATEMENT I saw and evaluated the patient. I reviewed the resident's note and discussed the case with the resident. I agree with the resident's findings and plan as documented. SUBJECTIVE: Patient is feeling better today. wants to go home. OBJECTIVE: Vital Signs Temperature 98.1 F 11/09/18 15:12 Pulse Rate 66 11/09/18 15:12 Respiratory Rate 20 11/09/18 15:12 Blood Pressure 146/93 11/09/18 15:12 O2 Sat by Pulse Oximetry (%) 95 11/09/18 09:00 Initial Vital Signs Temp Pulse Resp BP Pulse Ox 98.3 F 70 18 137/97 96 11/05/18 21:57 11/05/18 21:57 11/05/18 21:57 11/05/18 21:57 11/05/18 21:57 GENERAL: The patient is awake, alert, and fully oriented, in no acute distress. HEAD: Normal with no signs of trauma. EYES: PERRLA, EOMI, sclera anicteric, conjunctiva clear. ENT: Ears normal, oropharynx clear without exudates, dry mucous membranes. NECK: Trachea midline, full range of motion, supple. LUNGS: positive for wheezing bilaterally on all lung toth. HEART: Regular rate and rhythm, S1, S2 without murmur, rub or gallop. ABDOMEN: Soft, NT, ND, normoactive bowel sounds. Negative CVA tenderness. positive for Ileal conduit EXTREMITIES: 2+ pulses, warm, well-perfused, no edema. NEUROLOGICAL: AAOx3, Cranial nerves II through XII grossly intact. PSYCH: Normal mood, normal affect. SKIN: Warm, dry, normal turgor, +tattoos on the b/l UE/LE and abdomen CBCD WBC 8.6 K/mm3 (4.0-10.0) 11/09/18 08:35 RBC 4.26 M/mm3 (3.60-5.2) 11/09/18 08:35 Hgb 13.2 GM/dL (10.7-15.3) 11/09/18 08:35 Hct 37.8 % (32.4-45.2) 11/09/18 08:35 MCV 88.6 fl (80-96) 11/09/18 08:35 MCHC 35.0 g/dl (32.0-36.0) 11/09/18 08:35 RDW 14.8 % (11.6-15.6) 11/09/18 08:35 Plt Count 213 K/MM3 (134-434) 11/09/18 08:35 MPV 9.0 fl (7.5-11.1) 11/09/18 08:35 CMP Sodium 142 mmol/L (136-145) 11/09/18 08:35 Potassium 4.0 mmol/L (3.5-5.1) 11/09/18 08:35 Chloride 112 mmol/L (98-107) H 11/09/18 08:35 Carbon Dioxide 21 mmol/L (21-32) 11/09/18 08:35 Anion Gap 9 MMOL/L (8-16) 11/09/18 08:35 BUN 21 mg/dL (7-18) H 11/09/18 08:35 Creatinine 1.7 mg/dL (0.55-1.3) H 11/09/18 08:35 Creat Clearance w eGFR 32.65 (>60) 11/09/18 08:35 Random Glucose 68 mg/dL (74-106) L 11/09/18 08:35 Calcium 8.5 mg/dL (8.5-10.1) 11/09/18 08:35 Total Bilirubin 0.2 mg/dL (0.2-1) 11/06/18 08:45 AST 15 U/L (15-37) 11/06/18 08:45 ALT 19 U/L (13-61) 11/06/18 08:45 Alkaline Phosphatase 75 U/L (45-117) 11/06/18 08:45 Total Protein 7.4 g/dl (6.4-8.2) 11/06/18 08:45 Albumin 3.5 g/dl (3.4-5.0) 11/06/18 08:45 Current Medications Generic Name Dose Route Start Last Admin Trade Name Freq PRN Reason Stop Dose Admin Acetaminophen 650 mg 11/06/18 03:28 11/09/18 12:05 Tylenol - PO 650 mg Q4H PRN Administration FEVER Albuterol/Ipratropium 1 amp 11/06/18 03:26 11/08/18 23:12 Duoneb - NEB 1 amp Q6H PRN Administration SHORTNESS OF BREATH Albuterol/Ipratropium 1 amp 11/06/18 12:00 11/09/18 12:09 Duoneb - NEB Not Given RQID [facility] Budesonide/Formoterol Fumarate 2 puff 11/06/18 10:00 11/09/18 11:20 Symbicort 80/4.5mcg - IH 2 puff BID [facility] Administration Heparin Sodium (Porcine) 5,000 unit 11/06/18 06:15 11/09/18 14:35 Heparin - SQ Not Given TID [facility] Sodium Chloride 1,000 mls @ 100 mls/hr 11/06/18 09:45 11/09/18 11:17 Normal Saline - IV 100 mls/hr ASDIR [facility] Administration Ceftriaxone Sodium 1 gm/ 50 mls @ 100 mls/hr 11/07/18 10:00 11/09/18 10:15 Dextrose IVPB 100 mls/hr DAILY [facility] Administration Protocol Lactobacillus Acidophilus 1 tab 11/06/18 10:00 11/09/18 11:16 Bacid - PO 1 tab DAILY [facility] Administration Oxycodone HCl 5 mg 11/06/18 09:46 11/09/18 12:04 Roxicodone - PO 5 mg Q6H PRN Administration PAIN LEVEL 7 - 10 Prednisone 20 mg 11/08/18 21:44 11/09/18 11:16 Deltasone - PO 20 mg DAILY [facility] Administration Prochlorperazine Edisylate 5 mg 11/06/18 17:45 Compazine Injection - IVPB Q6H PRN NAUSEA Home Medications Medication Instructions Recorded Lactobacillus Acidophilus [Bacid -] 1 tab PO DAILY 30 Days #30 tab 10/05/18 Albuterol Sulfate Inhaler - 1 - 2 inh PO Q4H PRN #1 inhaler 10/16/18 [Ventolin HFA Inhaler -] Amox-Tr/K Cl [Augmentin - 500Mg 1 tab PO BID #10 tab 11/09/18 Tablet] Budesonide/Formeterol Fumarate 2 puff IH BID inhaler 11/09/18 [SYMBICORT 80/4.5mcg -] Microbiology 11/06/18 11:12 Blood - Peripheral Venous Blood Culture - Preliminary NO GROWTH OBTAINED AFTER 72 HOURS, INCUBATION TO CONTINUE FOR 2 DAYS. 11/06/18 10:55 Blood - Peripheral Venous Blood Culture - Preliminary NO GROWTH OBTAINED AFTER 72 HOURS, INCUBATION TO CONTINUE FOR 2 DAYS. 11/06/18 00:30 Urine - Urine Clean Catch Urine Culture - Preliminary Citrobacter Freundii Complex Staphylococcus Aureus Group D Strep Or Entero Coccus TECHNIQUE: Sequential axial images were obtained from the domes of the diaphragm through the symphysis pubis utilizing urinary tract calculi protocol. Evaluation of the lung bases benefits mild atelectatic changes within the right lower lobe. There is a 4 mm calcification within the lower pole of the right kidney consistent with a nonobstructing calculus. There is no evidence of additional calcifications within the kidneys or ureters suspicious for additional calculi. The patient is S/P cystectomy with an ileal conduit within the right lower quadrant. There is moderate bilateral renal cortical scarring and atrophy. There is also mild dilatation of both upper collecting systems and ureters down to the conduit. No obvious obstruction is suggested. No significant abnormalities of the liver, spleen, pancreas, or adrenal glands are identified. Calcified gallstones are identified within the gallbladder. There is no evidence of pneumoperitoneum, bowel obstruction or intra-abdominal abscess. There is no CT evidence of acute appendicitis or diverticulitis. There is an umbilical hernia containing nonobstructed loops of small bowel. Evaluation of the pelvis demonstrates an enlarged uterus, as well as a large right ovarian cyst. This cyst measures approximately 7.5 x 6.5 x 6.9 cm. Since a prior study of 10/01/2018, there has been little significant change. There is no evidence of acute bony pathology. IMPRESSION: 1. S/P cystectomy with right lower quadrant ileal conduit. 2. Mildly atrophic and scarred bilateral kidneys with mild hydronephrosis and hydroureter down to the condyle. No obvious obstruction suggested. 3. Right nephrolithiasis. 4. Enlarged uterus and larger right ovarian cyst. 5. No evidence of acute pathology or significant change since 10/01/2018. Please see above discussion. Reported By: Ermias Mittal MD 11/06/18 [id number] ASSESSMENT AND PLAN: Patient is a 43yo female with PMHx of recurrent UTIs , nephrolithiasis, previous nephrostomy tubes, endometriosis, s/p ileal conduit, COPD , presented with acute COPD exacerbation and UTI. # Acute UTI with right lower quadrant ileal conduit: will switch to oral po augmentin as per Dr. gonzalez. s/p IV antibiotics Rocephin s/p meropenem . # Acute COPD exacerbation . improved on Prednisone and continue nebs. and symbicort. # Terri on CKD : improved s/p IVF DVT PX : heparin discharge patient home.
--- NOTE | 2018-11-09 16:25 | DS ---
Physical Exam: SUBJECTIVE: Patient seen and examined at bedside this morning. No acute events overnight. Denies any headache, dizziness, fever, chills, chest pain, SOB, abdominal pain, back pain, diarrhea. OBJECTIVE: Vital Signs Period Temp Pulse Resp BP Sys/Minor Pulse Ox Last 24 Hr 97.5 F-98.4 F 59-66 18-20 114-148/67-93 95-99 PHYSICAL EXAM GENERAL: The patient is awake, alert, and fully oriented, in no acute distress. HEAD: Normal with no signs of trauma. EYES: PERRLA, EOMI, sclera anicteric, conjunctiva clear. ENT: Ears normal, nares patent, oropharynx clear without exudates, dry mucous membranes. NECK: Trachea midline, full range of motion, supple. LUNGS: clear to auscultation bilaterally HEART: Regular rate and rhythm, S1, S2 without murmur, rub or gallop. ABDOMEN: Soft, nontender, nondistended, normoactive bowel sounds. EXTREMITIES: 2+ pulses, warm, well-perfused, no edema. SKIN: Warm, dry, normal turgor, +tattoos on the b/l UE/LE and abdomen LABS Laboratory Results - last 24 hr 11/09/18 11/09/18 08:35 08:35 WBC 8.6 RBC 4.26 Hgb 13.2 Hct 37.8 MCV 88.6 MCH 31.0 MCHC 35.0 RDW 14.8 Plt Count 213 MPV 9.0 Sodium 142 Potassium 4.0 Chloride 112 H Carbon Dioxide 21 Anion Gap 9 BUN 21 H Creatinine 1.7 H Creat Clearance w eGFR 32.65 Random Glucose 68 L Calcium 8.5 Phosphorus 3.9 Magnesium 2.0 HOSPITAL COURSE: Date of Admission:11/06/18 Date of Discharge: 11/09/18 Patient is a 43 year old female with past medical history of kidney stones, endometriosis, multiple UTIs (previously growing ESBL E. coli and Klebsiella), bronchitis, prior nephrostomy tubes that were removed and now with ileal conduit with a RLQ urostomy bag, presented with bilateral low back pain. During the hospital stay, patient was also noted to be wheezing, and received steroids and duonebs. Patient was noted to have a urinary tract infection and initially was given Ertapenem, that was later switched to IV Ceftriaxone. ID consulted. Urine cultures were positive for Citrobacter freundii, S. aureus, and Group D strep. Patient was discharged to continue with Augmentin 500mg BID for 5 more days. Minutes to complete discharge: 35 Discharge Summary Reason For Visit: HYDRONEPHROSIS,FLANK PAIN,PYELONEPHRITIS Current Active Problems Bronchitis (Acute) CKD (chronic kidney disease) (Acute) History of nephrolithiasis (Acute) Musculoskeletal pain (Acute) Nausea & vomiting (Acute) Ovarian cyst (Acute) Pyelonephritis (Acute) S/P ileal conduit (Acute) Urinary tract infection (Acute) Smoking (Chronic) Condition: Stable - Instructions Diet, Activity, Other Instructions: You were admitted because you had back pain, with nausea and vomiting. Labs were done which showed you had a urinary tract infection. You were treated with antibiotics. Please take the following medication as prescribed: 1. Augmentin 500mg twice a day for 5 days. Follow-up with your primary care doctor within 1 week. Follow-up with the urologist (Dr. Castillo). Call the office to confirm your appointment. Call 911 or go to the ED if with any worsening fever, chills, shortness of breath, nausea, vomiting, diarrhea, or any new concerns noted. Referrals: Lois Mercado MD [Staff Physician] - aRyne Castillo MD [Staff Physician] - Disposition: HOME - Home Medications Comprehensive Discharge Medication List: Ambulatory Orders Lactobacillus Acidophilus [Bacid -] 1 tab PO DAILY 30 Days #30 tab 10/05/18 Albuterol Sulfate Inhaler - [Ventolin HFA Inhaler -] 1 - 2 inh PO Q4H PRN #1 inhaler 10/16/18 Amox-Tr/K Cl [Augmentin - 500Mg Tablet] 1 tab PO BID #10 tab 11/09/18 Budesonide/Formeterol Fumarate [SYMBICORT 80/4.5mcg -] 2 puff IH BID inhaler This patient is new to me today: No Emergency Visit: Yes ED Registration Date: 11/06/18 Care time: The patient presented to the Emergency Department on the above date and was hospitalized for further evaluation of their emergent condition. Critical Care patient: No - Discharge Referral Referred to [facility] No
[2018-11-09] MEDS: ALBUTEROL SO4 2.5/IPRATROPIUM 0.5 INH SOL 3 ML VIAL.NEB. NEB PRN (16:35)
== END 2018-11-09 17:16 | disposition home or self-care (01) | DRG 460 ==
LOC: JER 21:53 → JERBED 11-06 03:08 → J4S 11-06 06:07 → J7W 11-07 08:14
PROVIDERS: ADMIT Internal Medicine; ATTEND Internal Medicine
DX: N17.9 Acute kidney failure, unspecified (principal); N13.6 Pyonephrosis; J44.1 Chronic obstructive pulmonary disease with (acute) exacerbation; N83.202 Unspecified ovarian cyst, left side; E66.9 Obesity, unspecified; N18.9 Chronic kidney disease, unspecified; Z68.36 Body mass index [BMI] 36.0-36.9, adult; M54.5 Low back pain; E86.0 Dehydration; Z87.440 Personal history of urinary (tract) infections; K52.9 Noninfective gastroenteritis and colitis, unspecified
CPT/HCPCS: 36415; 74176; 80048; 80053; 81003; 81015; 83605; 83735; 83970; 84100; 84550; 84702; 85025; 85027; 85610; 87040; 87086; 87186; 93005; 93010; 94640; 99284-25; J0131; J1644; J7030

== ENCOUNTER 2018-11-28 02:53 | Emergency (ER) | payer OTHER ==
[2018-11-28 03:46] VITALS: BP 131/85; PULSE 82; TEMP 98.1; BMI 36.8
--- NOTE | 2018-11-28 05:43 | PDOC ---
Attending Attestation - Resident Resident Name: Chantelle Batista - ED Attending Attestation I have performed the following: I have examined & evaluated the patient, The case was reviewed & discussed with the resident, I agree w/resident's findings & plan, Exceptions are as noted - HPI HPI: 11/28/18 06:45 The patient is a 43 year old female, with a significant past medical history of frequent UTIs and kidney stones (s/p urostomy bag), who presents to the emergency department with right sided lower abd pain, NBNB emesis today x2, and concern for recurrent UTI. She denies any hematuria. She denies recent fevers, chills, headache or dizziness. She denies recent nausea, vomit, diarrhea or constipation. She denies recent chest pain or shortness of breath. Allergies: NKA Past surgical history: S/p urostomy bag. Social history: Smoker. - Physicial Exam PE: 11/28/18 07:24 agree with resident exam - Medical Decision Making 11/30/18 18:22 43yo F hx frequent ESBL UTI's presents to the ED with R sided abd pain and suprapubic pain with concern for UTI. Vitals unremarkable. Exam with no abd ttp or CVAT. Labs/UA ordered to evaluate for UTI and are pending. Case signed out to oncoming attending for further mgmt/dispo/
[2018-11-28] MEDS ORDERED: ACETAMINOPHEN 1000 MG/100 ML VIAL (NON FORMULARY) IVPB ONE (05:47)
[2018-11-28] MEDS ORDERED: SODIUM CHLORIDE 0.9% 500 ML INFUS.BAG IV ONE (05:48)
--- NOTE | 2018-11-28 05:58 | PDOC ---
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 This has been ongoing and worsening for the past couple of days. She additionally notes one episode NBNB vomiting when she awakened this morning, which is what made her come into the ED. She denies f/c, diarrhea, constipation, vaginal bleeding, vaginal discharge, back pain, lightheadedness, or other symptoms. Past History - Past Medical History Allergies/Adverse Reactions: Allergies Allergy/AdvReac Type Severity Reaction Status Date / Time No Known Allergies Allergy Verified 11/28/18 03:46 Home Medications: Ambulatory Orders Lactobacillus Acidophilus [Bacid -] 1 tab PO DAILY 30 Days #30 tab 10/05/18 Albuterol Sulfate Inhaler - [Ventolin HFA Inhaler -] 1 - 2 inh PO Q4H PRN #1 inhaler 10/16/18 Amox-Tr/K Cl [Augmentin - 500Mg Tablet] 1 tab PO BID #10 tab 11/09/18 Budesonide/Formeterol Fumarate [SYMBICORT 80/4.5mcg -] 2 puff IH BID inhaler Anemia: Yes Asthma: No Cancer: No Cardiac Disorders: No CVA: No COPD: No CHF: No Dementia: No Diabetes: No GI Disorders: No Disorders: Yes (Ileal Conduit, H/O KIDNEY STONES) HTN: No Hypercholesterolemia: No Kidney Stones: Yes (kidney failure) Liver Disease: No Seizures: No Thyroid Disease: No - Surgical History Abdominal Surgery: No Appendectomy: No Cardiac Surgery: No Cholecystectomy: No Lung Surgery: No Neurologic Surgery: No Orthopedic Surgery: No - Reproductive History (#): 0 Para: 0 - Immunization History Immunization Up to Date: Yes - Suicide/Smoking/Psychosocial Hx Smoking Status: No Smoking History: Never smoked Have you smoked in the past 12 months: No Number of Cigarettes Smoked Daily: 3 Cigars Per Day: 0 Information on smoking cessation initiated: No 'Breaking Loose' booklet given: 09/03/18 Hx Alcohol Use: No Drug/Substance Use Hx: No Substance Use Type: None Hx Substance Use Treatment: No Review of Systems - Review of Systems Able to Perform ROS?: Yes Comments:: 11/28/18 05:40 GEN: no fever, chills, malaise, generalized weakness, or weight change HEENT: no ear pain, sore throat, vision change, or eye pain CV: no chest pain, palpitations, lightheadedness, syncope, or edema RESP: no cough, wheezing, or SOB GI: abdominal pain, nausea, vomiting, diarrhea, constipation, or white/black/ bloody stool : no hematuria, incontinence, retention, bleeding, or discharge MSK: no neck/back pain, muscle weakness/pain, or joint swelling/pain NEURO: no headache, seizure, vertigo, numbness, tingling, or focal weakness PSYCH: no substance use, no behavior change SKIN: no jaundice, no rash ROS otherwise negative except as noted in HPI *Physical Exam - Vital Signs Last Vital Signs Temp Pulse Resp BP Pulse Ox 98.1 F 82 19 131/85 94 L 11/28/18 03:35 11/28/18 03:35 11/28/18 03:35 11/28/18 03:35 11/28/18 03:35 - Physical Exam Comments: 11/28/18 06:01 GENERAL: nontoxic-appearing, A/Ox4, no distress, answers questions appropriately HEENT: PERRLA, EOMI, moist mucous membranes NECK/BACK: no midline ttp, no spinal stepoff or deformity, no hematoma, full ROM , neck supple CARDIOVASCULAR: regular rate/rhythm, normal S1S2, no MGR, strong peripheral pulses, capillary refill <2 seconds, extremities wwp, no edema LUNGS/RESPIRATORY: no respiratory distress, CTAB GI/ABDOMEN: ileostomy bag noted to RLQ with cloudy urine and sediment, abdomen symmetric [id number], normoactive BS, soft, no ttp, no midline pulsatile masses : no CVA tenderness EXTREMITIES: no muscle atrophy, no acute deformity, no edema SKIN: warm and dry, no pallor, no jaundice, no rash, no bruising, no skin breakdown, no cuts, no lesions NEUROLOGICAL: GCS 15, CN II-XII grossly intact, 5/5 strength proximally and distally, no facial droop Moderate Sedation - Procedure Monitoring Vital Signs: Procedure Monitoring Vital Signs Temperature 98.1 F 11/28/18 03:35 Pulse Rate 82 11/28/18 03:35 Respiratory Rate 19 11/28/18 03:35 Blood Pressure 131/85 11/28/18 03:35 O2 Sat by Pulse Oximetry (%) 94 L 11/28/18 03:35 Medical Decision Making - Medical Decision Making 11/28/18 06:05 Adult female Pt with complex h/o ileal conduit and multiple UTI p/w painful urination. Initial Vital Signs Temp Pulse Resp BP Pulse Ox 98.1 F 82 19 131/85 94 L 11/28/18 03:35 11/28/18 03:35 11/28/18 03:35 11/28/18 03:35 11/28/18 03:35 Exam: As noted in Physical Exam section. DDX IBNLT: UTI, pyelonephritis, cervicitis, PID, TOA, other STD/STI, vaginal lesion, vulvuvaginal candidiasis, interstitial cystitis, neurogenic bladder, renal colic, obstructive uropathy, ectopic, ovarian torsion, ovarian cyst, endometritis, malignancy, hernia, appendicitis, proctitis, sigmoid diverticulitis wwo abscess or perforation, endometriosis, primary dysmenorrhea, etc. W/U ordered: CBCD CMP Coags T&S UA UCx TX ordered: IVF renal colic, ovarian torsion, ovarian cyst, ectopic , PID, TOA, cervicitis, endometritis, malignancy, hernia, cholecystitis, pancreatitis, gastritis, PUD, appendicitis, diverticulitis wwo abscess or perforation, colitis , SBO, bowel ischemia, bowel perforation, constipation, musculoskeletal, primary dysmenorrhea, endometriosis, fibroids, etc. W/U ordered: CBCD CMP Mg Phos Coags T&S UA UCx GC/Chlam/trich NAAT (cervical swab) GC culture, TVUS TX ordered: IVF, Ofirmev Labs: Reassessment: Patient's care is endorsed to the oncoming attending at the end of my shift. *DC/Admit/Observation/Transfer Diagnosis at time of Disposition: Abdominal pain Qualifiers: Abdominal location: unspecified location Qualified Code(s): R10.9 - Unspecified abdominal pain - Referrals Referrals: Vicki Guan DO [Primary Care Provider] - - Patient Instructions - Post Discharge Activity
[2018-11-28 06:53] LABS: BASO % 0.4 % (0-2.0); EOS % 7.1 % (0-4.5); HEMATOCRIT 40.6 % (32.4-45.2); HEMOGLOBIN 14.3 GM/dL (10.7-15.3); LYMPH % 15.9 % (8-40); MCH 31.3 pg (25.7-33.7); MCHC 35.3 g/dl (32.0-36.0); MEAN CELL VOLUME 88.6 fl (80-96); MEAN PLT VOLUME 9.3 fl (7.5-11.1); NEUT % 71.6 % (42.8-82.8); PLATELET COUNT 237 K/MM3 (134-434); RBC 4.58 M/mm3 (3.60-5.2)
[2018-11-28 07:15] LABS: URINE APPEARANCE SLCLOUDY; URINE BILIRUBIN NEGATIVE (<2.0 mg/dL); URINE COLOR LTYELLOW; URINE GLUCOSE (UA) NEGATIVE (NEGATIVE); URINE KETONE NEGATIVE (NEGATIVE); URINE LEUK ESTERASE 3+ (NEGATIVE); URINE NITRITE POSITIVE (NEGATIVE); URINE PROTEIN 2+ (NEGATIVE); URINE UROBILINOGEN NEGATIVE mg/dL (0.2-1.0)
[2018-11-28 07:22] LABS: INR 0.91 (0.83-1.09); PROTHROMBIN TIME (PATIENT) 10.7 SEC (9.7-13.0)
[2018-11-28 07:31] LABS: ALBUMIN 3.3 g/dl (3.4-5.0); ALK PHOS 75 U/L (45-117); ANION GAP 10 MMOL/L (8-16); BILIRUBIN,TOTAL 0.5 mg/dL (0.2-1); BLOOD UREA NITROGEN 25 mg/dL (7-18); CALCIUM 9.1 mg/dL (8.5-10.1); CHLORIDE 107 mmol/L (98-107); CO2 23 mmol/L (21-32); GLUCOSE,RANDOM 96 mg/dL (74-106); POTASSIUM 4.5 mmol/L (3.5-5.1); SGOT/AST 26 U/L (15-37); SGPT/ALT 24 U/L (13-61); SODIUM 140 mmol/L (136-145)
[2018-11-28 07:59] LABS: EPI CELLS RARE /HPF (FEW); URINE BACTERIA MANY /hpf (NONE SEEN); URINE MUCUS RARE
--- NOTE | 2018-11-28 08:20 | PDOC ---
*Physical Exam - Vital Signs Last Vital Signs Temp Pulse Resp BP Pulse Ox 98.1 F 82 19 131/85 94 L 11/28/18 03:35 11/28/18 03:35 11/28/18 03:35 11/28/18 03:35 11/28/18 03:35 ED Treatment Course - LABORATORY CBC & Chemistry Diagram: 11/28/18 06:20 11/28/18 06:20 - ADDITIONAL ORDERS Additional order review: Laboratory Results 11/28/18 11/28/18 11/28/18 06:45 06:20 06:20 PT with INR INR Sodium 140 Potassium 4.5 Chloride 107 Carbon Dioxide 23 Anion Gap 10 BUN 25 H Creatinine 2.0 H Creat Clearance w eGFR 27.07 Random Glucose 96 Calcium 9.1 Magnesium 2.0 Total Bilirubin 0.5 AST 26 ALT 24 Alkaline Phosphatase 75 Total Protein 7.0 Albumin 3.3 L Urine Color Ltyellow Urine Appearance Slcloudy Urine pH 7.0 Ur Specific [place] 1.010 Urine Protein 2+ H Urine Glucose (UA) Negative Urine Ketones Negative Urine Blood 1+ H Urine Nitrite Positive Urine Bilirubin Negative Urine Urobilinogen Negative Ur Leukocyte Esterase 3+ H Blood Type O POSITIVE Antibody Screen Negative 11/28/18 06:20 PT with INR 10.70 INR 0.91 Sodium Potassium Chloride Carbon Dioxide Anion Gap BUN Creatinine Creat Clearance w eGFR Random Glucose Calcium Magnesium Total Bilirubin AST ALT Alkaline Phosphatase Total Protein Albumin Urine Color Urine Appearance Urine pH Ur Specific [place] Urine Protein Urine Glucose (UA) Urine Ketones Urine Blood Urine Nitrite Urine Bilirubin Urine Urobilinogen Ur Leukocyte Esterase Blood Type Antibody Screen 11/28/18 06:20 RBC 4.58 MCV 88.6 MCHC 35.3 RDW 15.0 MPV 9.3 Neutrophils % 71.6 Lymphocytes % 15.9 Monocytes % 5.0 Eosinophils % 7.1 H D Basophils % 0.4 - Medications Given in the ED: ED Medications Discontinued Medications Generic Name Dose Route Start Last Admin Trade Name Freq PRN Reason Stop Dose Admin Acetaminophen 1,000 mg 11/28/18 05:47 11/28/18 06:37 Ofirmev Injection - IVPB 11/28/18 05:48 Not Given ONCE ONE Sodium Chloride 1,000 ml 11/28/18 05:48 11/28/18 06:38 Normal Saline - IV 11/28/18 05:49 1,000 ml ONCE ONE Administration Medical Decision Making - Medical Decision Making 11/28/18 08:19 Laboratory Tests 11/09/18 11/28/18 11/28/18 08:35 06:20 06:20 WBC 7.0 Hgb 14.3 Hct 40.6 Plt Count 237 BUN 21 H 25 H Creatinine 1.7 H 2.0 H Urine Nitrite Urine Bilirubin Ur Leukocyte Esterase 11/28/18 06:45 WBC Hgb Hct Plt Count BUN Creatinine Urine Nitrite Positive Urine Bilirubin Negative Ur Leukocyte Esterase 3+ H 11/28/18 09:32 Pt makes repeated visits to the nurses station requesting to go home Case reviewed with Dr Mercado He states that patient can be discharged on Augmentin as she was asked to take it the last time she was discharged from the hospital but lost her prescription Pt has had no systemic signs of illness WBC 7, no neutrophil predominance I have had a long conversation with this patient re: our concern for resistant organisms she understands the importance of vigilance regarding her vital signs Any fevers, pain, inability to tolerate po, vomiting, should PROMPT RETURN to the ER clinical impression: UTI, initial presentation *DC/Admit/Observation/Transfer Diagnosis at time of Disposition: Abdominal pain Qualifiers: Abdominal location: unspecified location Qualified Code(s): R10.9 - Unspecified abdominal pain Urinary tract infection Qualifiers: Urinary tract infection type: site unspecified Hematuria presence: without hematuria Qualified Code(s): N39.0 - Urinary tract infection, site not specified - Discharge Dispostion Disposition: HOME Condition at time of disposition: Stable Decision to Admit order: No - Prescriptions Prescriptions: Amoxicillin/Potassium Clav [Augmentin 875-125 Tablet] 1 each PO BID #14 tablet - Referrals Referrals: Vicki Guan DO [Primary Care Provider] - Lois Mercado MD [Staff Physician] - - Patient Instructions Printed Discharge Instructions: DI for Urinary Tract Infection (UTI) Additional Instructions: Thank you for coming in to the ER today Please take antibiotics as prescribed If you cant take them or lose them, you MUST return to the ER for IV abx Please be sure to follow up with your primary care physician within 1 week Return to the ER for any other concerns or complaints - Post Discharge Activity Forms/Work/School Notes: Back to Work
[2018-11-28] MEDS ORDERED: AMOX TR/POT CLAV 875MG/125MG TABLETS (FP) PO ONE (09:41)
== END 2018-11-28 09:56 | disposition home or self-care (01) ==
LOC: JER 02:53
DX: N39.0 Urinary tract infection, site not specified (principal); Z87.440 Personal history of urinary (tract) infections; Z87.442 Personal history of urinary calculi; N18.9 Chronic kidney disease, unspecified
CPT/HCPCS: 36415; 80053; 81003; 81015; 83735; 85025; 85610; 86850; 86900; 86901; 87086; 87186; 99285-25

== ENCOUNTER 2018-12-02 22:06 | Emergency (ER) | payer OTHER ==
[2018-12-02 22:36] VITALS: BP 140/97; TEMP 98.4; BMI 36.3
--- NOTE | 2018-12-02 23:56 | PDOC ---
History of Present Illness - General Chief Complaint: Revisit, Lab Variance Stated Complaint: STOMACH PAIN Time Seen by Provider: 12/02/18 23:44 History Source: Patient Exam Limitations: No Limitations - History of Present Illness Initial Comments: 12/02/18 23:55 Patient is a 43-year-old female history of nephrostomy tubes with ileol conduit with RLQ urostomy bag, miltiple kidney stones, CKD 2/2 kidney stones, multiple uti (ESBL in the past) endometriosis came in with complaint of abd pain. Patient was seen in the ED on 11/28/18 and at that time admission was recommeded but decided to go home on antibiotics. Patient was put on augmentin but states was called today and told that the antibx was not sensitive and should come back for admission. Patient states that she has taken po antibx in the past and it does not work for her. PMD: [facility] Urology: Dr. Vuong PMHx: as above PSOCHX: neg etoh, cig, drug. GENERAL/CONSTITUTIONAL: [No fever or chills. No weakness. No weight change.] HEAD, EYES, EARS, NOSE AND THROAT: [No change in vision. No ear pain or discharge. No sore throat.] CARDIOVASCULAR: [No chest pain or shortness of breath.] RESPIRATORY: [No cough, wheezing, or hemoptysis.] GASTROINTESTINAL: [No nausea, vomiting, diarrhea or constipation. No rectal bleeding.] GENITOURINARY: (+) dysuria, frequency, or change in urination.] MUSCULOSKELETAL: [No joint or muscle swelling or pain. No neck or back pain.] SKIN AND BREASTS: [No rash or easy bruising.] NEUROLOGIC: [No headache, vertigo, loss of consciousness, or loss of sensation.] PSYCHIATRIC: [No depression or anxiety.] ENDOCRINE: [No increased thirst. No abnormal weight change.] HEMATOLOGIC/LYMPHATIC: [No anemia, easy bleeding, or history of blood clots.] ALLERGIC/IMMUNOLOGIC: [No hives or skin allergy. No latex allergy.] GENERAL: [The patient is awake, alert, and fully oriented, in no acute distress. ] HEAD: [Normal with no signs of trauma.] EYES: [Pupils equal, round and reactive to light, extraocular movements intact, sclera anicteric, conjunctiva clear.] ENT: [Ears normal, nares patent, oropharynx clear without exudates. Moist mucous membranes.] NECK: [Normal range of motion, supple without lymphadenopathy, JVD, or masses.] LUNGS: [Breath sounds equal, clear to auscultation bilaterally. No wheezes, and no crackles.] HEART: [Regular rate and rhythm, normal S1 and S2 without murmur, rub.] ABDOMEN: [Soft, nontender, normoactive bowel sounds. No guarding, no rebound. No masses.] EXTREMITIES: [Normal range of motion, no edema. No clubbing or cyanosis. No cords, erythema, or tenderness.] NEUROLOGICAL: [Cranial nerves II through XII grossly intact. Normal speech, normal gait.] PSYCH: [Normal mood, normal affect.] SKIN: [Warm, Dry, normal turgor, no rashes or lesions noted.] Past History - Past Medical History Allergies/Adverse Reactions: Allergies Allergy/AdvReac Type Severity Reaction Status Date / Time No Known Allergies Allergy Verified 11/28/18 03:46 Home Medications: Ambulatory Orders Lactobacillus Acidophilus [Bacid -] 1 tab PO DAILY 30 Days #30 tab 10/05/18 Albuterol Sulfate Inhaler - [Ventolin HFA Inhaler -] 1 - 2 inh PO Q4H PRN #1 inhaler 10/16/18 Budesonide/Formeterol Fumarate [SYMBICORT 80/4.5mcg -] 2 puff IH BID inhaler Amoxicillin/Potassium Clav [Augmentin 875-125 Tablet] 1 each PO BID #14 tablet 11/28/18 Oxycodone HCl/Acetaminophen [Percocet 5-325 mg Tablet] 1 tab PO Q4H #15 tablet MDD 6 12/03/18 levoFLOXacin [Levaquin -] 500 mg PO DAILY #7 tablet 12/03/18 Anemia: Yes Asthma: No Cancer: No Cardiac Disorders: No CVA: No COPD: No CHF: No Dementia: No Diabetes: No GI Disorders: No Disorders: Yes (Ileal Conduit, H/O KIDNEY STONES) HTN: No Hypercholesterolemia: No Kidney Stones: Yes (kidney failure) Liver Disease: No Seizures: No Thyroid Disease: No - Surgical History Abdominal Surgery: No Appendectomy: No Cardiac Surgery: No Cholecystectomy: No Lung Surgery: No Neurologic Surgery: No Orthopedic Surgery: No - Reproductive History (#): 0 Para: 0 - Immunization History Immunization Up to Date: Yes - Suicide/Smoking/Psychosocial Hx Smoking Status: No Smoking History: Never smoked Have you smoked in the past 12 months: No Number of Cigarettes Smoked Daily: 3 Cigars Per Day: 0 Information on smoking cessation initiated: No 'Breaking Loose' booklet given: 09/03/18 Hx Alcohol Use: No Drug/Substance Use Hx: No Substance Use Type: None Hx Substance Use Treatment: No *Physical Exam - Vital Signs Last Vital Signs Temp Pulse Resp BP Pulse Ox 98.4 F 64 18 140/97 96 12/02/18 22:33 12/02/18 22:33 12/02/18 22:33 12/02/18 22:33 12/02/18 22:33 Moderate Sedation - Procedure Monitoring Vital Signs: Procedure Monitoring Vital Signs Temperature 98.4 F 12/02/18 22:33 Pulse Rate 64 12/02/18 22:33 Respiratory Rate 18 12/02/18 22:33 Blood Pressure 140/97 12/02/18 22:33 O2 Sat by Pulse Oximetry (%) 96 12/02/18 22:33 ED Treatment Course - LABORATORY CBC & Chemistry Diagram: 12/03/18 01:33 12/03/18 01:33 Medical Decision Making - Medical Decision Making 12/02/18 23:55 Patient is a 43-year-old female history of nephrostomy tubes with ileol conduit with RLQ urostomy bag, miltiple kidney stones, CKD 2/2 kidney stones, multiple uti (ESBL in the past) endometriosis came in with complaint of abd pain. Patient was seen in the ED on 11/28/18 and at that time admission was recommeded but decided to go home on antibiotics. Patient was put on augmentin but states was called today and told that the antibx was not sensitive and should come back for admission. Patient states that she has taken po antibx in the past and it does not work for her. Patient was offered po levaquin and no admission but states the po antibx does not work for her and she is in more pain. will get labs. given 12/03/18 02:31 Case d/w the hospitalist and they came down to see the patient. She is now willing to go home on PO antibx. *DC/Admit/Observation/Transfer Diagnosis at time of Disposition: UTI (urinary tract infection) Qualifiers: Urinary tract infection type: site unspecified Hematuria presence: without hematuria Qualified Code(s): N39.0 - Urinary tract infection, site not specified - Discharge Dispostion Disposition: HOME Condition at time of disposition: Stable - Referrals Referrals: Monica Almaguer [Primary Care Provider] - - Patient Instructions Printed Discharge Instructions: DI for Urinary Tract Infection (UTI) Additional Instructions: YOU must return to the ED for fever >101.4, nausea, vomiting. Follow up with urology in 24 hours. YOU are being placed on Levaquin, if you have ankle pain and swelling stop the antibiotics and return to the ED immediately. - Post Discharge Activity
[2018-12-03] MEDS ORDERED: morphine CARPU-JECT 2 MG/1 ML DISP.SYRIN IVPUSH ONE (00:44)
[2018-12-03] MEDS ORDERED: SODIUM CHLORIDE 1,000 ML IV SCH (00:45)
[2018-12-03] MEDS ORDERED: MORPHINE SULFATE 2 MG/ML VIAL ONE (01:03)
[2018-12-03 02:21] LABS: BASO % 0.9 % (0-2.0); EOS % 10.2 % (0-4.5); HEMATOCRIT 41.9 % (32.4-45.2); HEMOGLOBIN 14.5 GM/dL (10.7-15.3); LYMPH % 22.5 % (8-40); MCH 30.8 pg (25.7-33.7); MCHC 34.6 g/dl (32.0-36.0); MEAN PLT VOLUME 9.6 fl (7.5-11.1); NEUT % 59.4 % (42.8-82.8); PLATELET COUNT 272 K/MM3 (134-434); RDW 14.7 % (11.6-15.6); WHITE BLOOD COUNT 6.8 K/mm3 (4.0-10.0)
[2018-12-03 02:26] LABS: URINE APPEARANCE CLOUDY; URINE BILIRUBIN NEGATIVE (<2.0 mg/dL); URINE COLOR YELLOW; URINE GLUCOSE (UA) NEGATIVE (NEGATIVE); URINE KETONE NEGATIVE (NEGATIVE); URINE LEUK ESTERASE 3+ (NEGATIVE); URINE NITRITE POSITIVE (NEGATIVE); URINE PROTEIN 2+ (NEGATIVE); URINE UROBILINOGEN NEGATIVE mg/dL (0.2-1.0)
[2018-12-03 02:41] LABS: ALBUMIN 3.3 g/dl (3.4-5.0); ALK PHOS 80 U/L (45-117); ANION GAP 9 MMOL/L (8-16); BILIRUBIN,TOTAL 0.3 mg/dL (0.2-1); BLOOD UREA NITROGEN 17 mg/dL (7-18); CHLORIDE 108 mmol/L (98-107); CO2 22 mmol/L (21-32); CREATININE 1.9 mg/dL (0.55-1.3); GLUCOSE,RANDOM 116 mg/dL (74-106); POTASSIUM 4.1 mmol/L (3.5-5.1); SGOT/AST 17 U/L (15-37); SGPT/ALT 21 U/L (13-61); SODIUM 140 mmol/L (136-145)
[2018-12-03 02:51] VITALS: PULSE 66
[2018-12-03 03:06] LABS: EPI CELLS RARE /HPF (FEW); URINE BACTERIA RARE /hpf (NONE SEEN); URINE MUCUS RARE
== END 2018-12-03 03:00 | disposition home or self-care (01) ==
LOC: JER 22:06
DX: N39.0 Urinary tract infection, site not specified (principal); N18.9 Chronic kidney disease, unspecified; Z87.442 Personal history of urinary calculi; Z96.0 Presence of urogenital implants; Z93.6 Other artificial openings of urinary tract status
CPT/HCPCS: 36415; 80053; 81003; 81015; 85025; 87040; 87086; 87186; 99282-25

== ENCOUNTER 2018-12-04 21:50 | Inpatient (IN) | payer OTHER ==
--- NOTE | 2018-12-04 23:54 | PDOC ---
History of Present Illness - General Chief Complaint: Urinary Problem Stated Complaint: ABD PAIN Time Seen by Provider: 12/04/18 22:58 History Source: Patient, Old Records Exam Limitations: No Limitations - History of Present Illness Travel History: No Initial Comments: 12/04/18 23:54 HISTORY OF PRESENT ILLNESS: 43-year-old woman history of ileal conduit with right lower quadrant urostomy bag, multiple kidney stones, CKD, multiple urinary tract infections (ESBL in the past), endometriosis was told to return to emergency department for admission by infectious disease specialist. Patient was seen by Dr. Shipley in his office today who was concerned that the patient was continuing to have pain despite 1 day of antibiotics. Patient was seen at approximately 10:30 PM. Patient states she had a to go do and other things to do prior to coming to emergency department. Patient's preliminary urine culture shows lactose fermenting negative bacilli and group D strep or Entero coccus. Patient's urinalysis performed today shows 3+ leuk esterase 38 white cells on high-power field. Rosa is decreased from 84 on 12/03. No recent travel or sick contacts. PAST MEDICAL HISTORY: Denies past medical history SURGICAL HISTORY: Denies ALLERGIES: No known drug allergies REVIEW OF SYSTEMS General/Constitutional: Denies fever or chills. Denies weakness, weight change. HEENT: Denies change in vision. Denies ear pain or discharge. Denies sore throat. Cardiovascular: Denies chest pain or shortness of breath. Respiratory: Denies cough, wheezing, or hemoptysis. Gastrointestinal: Denies nausea, vomiting, diarrhea or constipation. Denies rectal bleeding. Genitourinary: Suprapubic and bilateral flank pain. Musculoskeletal: Denies joint or muscle swelling or pain. Denies neck or back pain. Skin and breasts: Denies rash or easy bruising. Neurologic: Denies headache, vertigo, loss of consciousness, or loss of sensation. Psychiatric: Denies depression or anxiety. Endocrine: Denies increased thirst. Denies abnormal weight change. Hematologic/Lymphatic: Denies anemia, easy bleeding, or history of blood clots. Allergic/Immunologic: Denies hives or skin allergy. Denies latex allergy. PHYSICAL EXAM General Appearance: Well-appearing, appropriately dressed. No apparent distress , no intoxication. Respiratory/Chest: Lungs CTAB. No shortness of breath, chest tenderness, respiratory distress, accessory muscle use. No crackles, rales, rhonchi, stridor , wheezing, dullness Cardiovascular: RRR. S1, S2. No JVD, murmur, bradycardia, tachycardia. Gastrointestinal/Abdominal: Normal bowel sounds. Abdomen soft, non-distended. Suprapubic tenderness present. No rebound tenderness. No organomegaly, pulsatile mass, guarding, hernia, hepatomegaly, splenomegaly. Urostomy beefy red. No erythema present around stoma. Musculoskeletal/Extremities: Normal inspection. FROM of all extremities, normal capillary refill. Pelvis Stable. Bilateral CVA tenderness. No tenderness to extremities, pedal edema, swelling, erythema or deformity. Integumentary: Appropriate color, dry, warm. No cyanosis, erythema, jaundice or rash Past History - Past Medical History Allergies/Adverse Reactions: Allergies Allergy/AdvReac Type Severity Reaction Status Date / Time No Known Allergies Allergy Verified 11/28/18 03:46 Home Medications: Ambulatory Orders Lactobacillus Acidophilus [Bacid -] 1 tab PO DAILY 30 Days #30 tab 10/05/18 Albuterol Sulfate Inhaler - [Ventolin HFA Inhaler -] 1 - 2 inh PO Q4H PRN #1 inhaler 10/16/18 Budesonide/Formeterol Fumarate [SYMBICORT 80/4.5mcg -] 2 puff IH BID inhaler Amoxicillin/Potassium Clav [Augmentin 875-125 Tablet] 1 each PO BID #14 tablet 11/28/18 Oxycodone HCl/Acetaminophen [Percocet 5-325 mg Tablet] 1 tab PO Q4H #15 tablet MDD 6 12/03/18 levoFLOXacin [Levaquin -] 500 mg PO DAILY #7 tablet 12/03/18 Anemia: Yes Asthma: No Cancer: No Cardiac Disorders: No CVA: No COPD: No CHF: No Dementia: No Diabetes: No GI Disorders: No Disorders: Yes (Ileal Conduit, H/O KIDNEY STONES) HTN: No Hypercholesterolemia: No Kidney Stones: Yes (kidney failure) Liver Disease: No Seizures: No Thyroid Disease: No - Surgical History Abdominal Surgery: No Appendectomy: No Cardiac Surgery: No Cholecystectomy: No Lung Surgery: No Neurologic Surgery: No Orthopedic Surgery: No - Reproductive History (#): 0 Para: 0 - Immunization History Immunization Up to Date: Yes - Suicide/Smoking/Psychosocial Hx Smoking Status: No Smoking History: Former smoker Have you smoked in the past 12 months: Yes Number of Cigarettes Smoked Daily: 3 If you are a former smoker, when did you quit?: 1 Month ago Cigars Per Day: 0 Information on smoking cessation initiated: Yes 'Breaking Loose' booklet given: 09/03/18 Hx Alcohol Use: No Drug/Substance Use Hx: Yes (MJ) Substance Use Type: None Hx Substance Use Treatment: No *Physical Exam - Vital Signs Last Vital Signs Temp Pulse Resp BP Pulse Ox 98 F 63 20 130/87 97 12/04/18 22:09 12/04/18 22:09 12/04/18 22:09 12/04/18 22:09 12/04/18 22:09 Moderate Sedation - Procedure Monitoring Vital Signs: Procedure Monitoring Vital Signs Temperature 98 F 12/04/18 22:09 Pulse Rate 63 12/04/18 22:09 Respiratory Rate 20 12/04/18 22:09 Blood Pressure 130/87 12/04/18 22:09 O2 Sat by Pulse Oximetry (%) 97 12/04/18 22:09 ED Treatment Course - LABORATORY CBC & Chemistry Diagram: 12/05/18 00:30 12/05/18 00:30 Medical Decision Making - Medical Decision Making 12/05/18 00:00 A/P: 43-year-old woman with urinary tract infection Preliminary culture reveals lactose fermenting negative bacilli and group D strep or enterococcus. UA performed today reveals nitrates, 3+ leuk esterase and 38 white cells on high -power field Call Dr. Mercado for recs 12/05/18 00:[address] Mercado is concerned about her pyelonephritis and recommends Zosyn and admission. I will contact the hospitalist service to admit to have Dr. Mercado follow as ID consult. *DC/Admit/Observation/Transfer Diagnosis at time of Disposition: Pyelonephritis - Discharge Dispostion Condition at time of disposition: Fair Decision to Admit order: Yes - Referrals Referrals: Pb Randolph [Primary Care Provider] - - Patient Instructions - Post Discharge Activity
[2018-12-05] MEDS ORDERED: morphine SULFATE 4 MG/ML VIAL IVPUSH ONE (00:37)
[2018-12-05] MEDS ORDERED: morphine SULFATE 4 MG/ML VIAL ONE (00:39)
[2018-12-05 00:43] LABS: BASO % 0.6 % (0-2.0); EOS % 8.1 % (0-4.5); HEMATOCRIT 39.7 % (32.4-45.2); LYMPH % 21.2 % (8-40); MCH 31.1 pg (25.7-33.7); MCHC 35.4 g/dl (32.0-36.0); MEAN CELL VOLUME 87.9 fl (80-96); MEAN PLT VOLUME 8.9 fl (7.5-11.1); MONO % 6.9 % (3.8-10.2); NEUT % 63.2 % (42.8-82.8); PLATELET COUNT 251 K/MM3 (134-434); RBC 4.51 M/mm3 (3.60-5.2); RDW 14.6 % (11.6-15.6)
[2018-12-05 01:13] LABS: ALBUMIN 3.2 g/dl (3.4-5.0); ALK PHOS 74 U/L (45-117); ANION GAP 5 MMOL/L (8-16); BILIRUBIN,TOTAL 0.2 mg/dL (0.2-1); BLOOD UREA NITROGEN 22 mg/dL (7-18); CALCIUM 8.5 mg/dL (8.5-10.1); CHLORIDE 110 mmol/L (98-107); CO2 24 mmol/L (21-32); CREATININE 2.1 mg/dL (0.55-1.3); GLUCOSE,RANDOM 88 mg/dL (74-106); POTASSIUM 4.2 mmol/L (3.5-5.1); SGOT/AST 16 U/L (15-37); SGPT/ALT 19 U/L (13-61); SODIUM 139 mmol/L (136-145); TOT PROT 6.7 g/dl (6.4-8.2)
--- NOTE | 2018-12-05 01:22 | HP ---
CHIEF COMPLAINT: back pain PCP: Tomasa pt seen and examined Hx HISTORY OF PRESENT ILLNESS: 43 y/o AAF urological issues with renal stones leading to CKD and known b/l hydronephross and is s/p b/l nephrostomy which eventually ended up converted to ileal conduit ([facility] 2006) complicated by frequent UTIs. Patient has grown multiple organisms in her urine including Klebsiella Pneumoniae, ESBL E coli, Citrbacter. Pt seem in ER 2 days ago prescribed levaquin, seen in Dr. Mercado's office yesterday and advised to be admitted for IV antibiotics. She c/o abdominal pain radiating to back, foul smelling urine. Denied any fevers or chills. ER course was notable for: (1) zosyn (2) ct scan of abdomen/pelvis (3) Recent Travel: no PAST MEDICAL HISTORY: multiple utis, ckd, b/l hydronephrosis, two ovarian cysts removed 6-7 years ago. PAST SURGICAL HISTORY: b/l nephrostomy -converted to ileal conduit ([facility] 2006) Social History: Smoking: smokes 3 cigs/day Alcohol: no Drugs: marijuana in the past Family History: none reported Allergies No Known Allergies Allergy (Verified 11/28/18 03:46) HOME MEDICATIONS: Home Medications Medication Instructions Recorded Lactobacillus Acidophilus [Bacid -] 1 tab PO DAILY 30 Days #30 tab 10/05/18 Albuterol Sulfate Inhaler - 1 - 2 inh PO Q4H PRN #1 inhaler 10/16/18 [Ventolin HFA Inhaler -] Budesonide/Formeterol Fumarate 2 puff IH BID inhaler 11/09/18 [SYMBICORT 80/4.5mcg -] Amoxicillin/Potassium Clav 1 each PO BID #14 tablet 11/28/18 [Augmentin 875-125 Tablet] Oxycodone HCl/Acetaminophen 1 tab PO Q4H #15 tablet MDD 6 12/03/18 [Percocet 5-325 mg Tablet] levoFLOXacin [Levaquin -] 500 mg PO DAILY #7 tablet 12/03/18 REVIEW OF SYSTEMS CONSTITUTIONAL: Absent: fever, chills, diaphoresis, generalized weakness, malaise, loss of appetite, weight change HEENT: Absent: rhinorrhea, nasal congestion, throat pain, throat swelling, difficulty swallowing, mouth swelling, ear pain, eye pain, visual changes CARDIOVASCULAR: Absent: chest pain, syncope, palpitations, irregular heart rate, lightheadedness , peripheral edema RESPIRATORY: Absent: cough, shortness of breath, dyspnea with exertion, orthopnea, wheezing, stridor, hemoptysis GASTROINTESTINAL: Absent: abdominal pain, abdominal distension,, diarrhea, constipation, melena, hematochezia present- nausea, vomiting GENITOURINARY: present- Suprapubic and bilateral flank pain. MUSCULOSKELETAL: Absent: myalgia, arthralgia, joint swelling, back pain, neck pain SKIN: Absent: rash, itching, pallor HEMATOLOGIC/IMMUNOLOGIC: Absent: easy bleeding, easy bruising, lymphadenopathy, frequent infections ENDOCRINE: Absent: unexplained weight gain, unexplained weight loss, heat intolerance, cold intolerance NEUROLOGIC: Absent: headache, focal weakness or paresthesias, dizziness, unsteady gait, seizure, mental status changes, bladder or bowel incontinence PSYCHIATRIC: Absent: anxiety, depression, suicidal or homicidal ideation, hallucinations. PHYSICAL EXAMINATION Vital Signs - 24 hr 12/04/18 22:09 Temperature 98 F Pulse Rate 63 Respiratory 20 Rate Blood Pressure 130/87 O2 Sat by Pulse 97 Oximetry (%) GENERAL: Awake, alert, and fully oriented, in no acute distress. HEAD: Normal with no signs of trauma. EYES: Pupils equal, round and reactive to light, extraocular movements intact, sclera anicteric, conjunctiva clear. No lid lag. EARS, NOSE, THROAT: Ears normal, nares patent, oropharynx clear without exudates. Moist mucous membranes. NECK: Normal range of motion, supple without lymphadenopathy, JVD, or masses. LUNGS: Breath sounds equal, clear to auscultation bilaterally. No wheezes, and no crackles. No accessory muscle use. HEART: Regular rate and rhythm, normal S1 and S2 without murmur, rub or gallop. ABDOMEN: right sided ilealconduit seen with urine in bag , no cva tenderness appreciated MUSCULOSKELETAL: Normal range of motion at all joints. No bony deformities or tenderness. No CVA tenderness. UPPER EXTREMITIES: 2+ pulses, warm, well-perfused. No cyanosis. No clubbing. No peripheral edema. LOWER EXTREMITIES: 2+ pulses, warm, well-perfused. No calf tenderness. No peripheral edema. NEUROLOGICAL: Cranial nerves II-XII intact. Normal speech. Normal gait. PSYCHIATRIC: Cooperative. Good eye contact. Appropriate mood and affect. SKIN: multiple tattoos seen Laboratory Results - last 24 hr 12/05/18 12/05/18 00:30 00:30 WBC 7.0 RBC 4.51 Hgb 14.0 Hct 39.7 MCV 87.9 MCH 31.1 MCHC 35.4 RDW 14.6 Plt Count 251 MPV 8.9 Absolute Neuts (auto) 4.4 Neutrophils % 63.2 Lymphocytes % 21.2 Monocytes % 6.9 Eosinophils % 8.1 H Basophils % 0.6 Nucleated RBC % 0 Sodium 139 Potassium 4.2 Chloride 110 H Carbon Dioxide 24 Anion Gap 5 L BUN 22 H Creatinine 2.1 H Creat Clearance w eGFR 25.58 Random Glucose 88 Calcium 8.5 Total Bilirubin 0.2 AST 16 ALT 19 Alkaline Phosphatase 74 Total Protein 6.7 Albumin 3.2 L ASSESSMENT/PLAN: 43yo woman s/p ileal conduit w/ complicated UTI, possible b/l pyeloneophritis. Multiples organisms grown in urine in past including ESBL Ecoli and ESBL Klebsiella). Admitted as per ID recs for IV antibiotics. She is not septic and stable for admission to med/surg. -med/surg -urine culture -zosyn (as per verbal ID recs -CT of abdomen/pelvis - f/u report -ID and urology consults -gentle IV fluid hydration - zofran IV prn if nausea or vomiting -morphine IV prn for pain -regular diet -heparin sc for dvt ppx -ekg -smoking cessation Visit type - Emergency Visit Emergency Visit: Yes ED Registration Date: 12/05/18 Care time: The patient presented to the Emergency Department on the above date and was hospitalized for further evaluation of their emergent condition. - New Patient This patient is new to me today: Yes Date on this admission: 12/05/18 - Critical Care Critical Care patient: No
[2018-12-05] MEDS ORDERED: PIPERACILLIN/TAZOB 2.25 GM 2.25 GM in DEXTROSE 5%-WATER - 50 ML IVPB ONE (01:24)
--- NOTE | 2018-12-05 01:24 | PDOC ---
*Physical Exam - Vital Signs Last Vital Signs Temp Pulse Resp BP Pulse Ox 98 F 63 20 130/87 97 12/04/18 22:09 12/04/18 22:09 12/04/18 22:09 12/04/18 22:09 12/04/18 22:09 ED Treatment Course - LABORATORY CBC & Chemistry Diagram: 12/07/18 06:00 12/07/18 06:00 - ADDITIONAL ORDERS Additional order review: Laboratory Results 12/05/18 00:30 Sodium 139 Potassium 4.2 Chloride 110 H Carbon Dioxide 24 Anion Gap 5 L BUN 22 H Creatinine 2.1 H Creat Clearance w eGFR 25.58 Random Glucose 88 Calcium 8.5 Total Bilirubin 0.2 AST 16 ALT 19 Alkaline Phosphatase 74 Total Protein 6.7 Albumin 3.2 L 12/05/18 00:30 RBC 4.51 MCV 87.9 MCHC 35.4 RDW 14.6 MPV 8.9 Neutrophils % 63.2 Lymphocytes % 21.2 Monocytes % 6.9 Eosinophils % 8.1 H Basophils % 0.6 Medical Decision Making - Medical Decision Making 12/05/18 01:15 pt states she was sent by infectious disease specialist Dr Mercado for admission. She has long standing history of UTIs with antibiotic resistance. I agree with the management of this case *DC/Admit/Observation/Transfer Diagnosis at time of Disposition: Pyelonephritis - Discharge Dispostion Disposition: HOME Condition at time of disposition: Stable - Prescriptions - Referrals - Patient Instructions - Post Discharge Activity
[2018-12-05] MEDS ORDERED: PIPERACILLIN/TAZOB 2.25 GM 2.25 GM/50 ML BAG IVPB ONE (01:31)
[2018-12-05] MEDS ORDERED: ALBUTEROL SO4 0.083% IH SOL 2.5 MG/3 ML VIAL.NEB. NEB PRN (01:34)
[2018-12-05] MEDS ORDERED: SODIUM CHLORIDE 1,000 ML IV SCH (02:45)
[2018-12-05] MEDS: SODIUM CHLORIDE 1,000 ML IV SCH ×2 (02:56→17:53)
[2018-12-05] MEDS ORDERED: MORPHINE SULFATE 2 MG/ML VIAL ONE ×2 (03:35→09:43)
[2018-12-05] MEDS: MORPHINE SULFATE 2 MG/ML VIAL IVPUSH PRN ×3 (03:36→17:11)
[2018-12-05] MEDS ORDERED: ONDANSETRON 4 MG/2 ML VIAL ONE (07:59)
[2018-12-05] MEDS: ONDANSETRON 4 MG/2 ML VIAL IVPB PRN ×2 (08:00→17:11)
[2018-12-05] MEDS: HEPARIN NA (PORCINE) 5,000 UNITS/ML 1ML VIAL SQ SCH ×2 (09:44→22:29)
[2018-12-05] MEDS: BUDESONIDE/FORMETEROL FUMARATE 80/4.5 mcg INHALER IH SCH ×2 (09:45→22:32)
--- NOTE | 2018-12-05 09:55 | EKG ---
Test Reason : Blood Pressure : / mmHG Vent. Rate : 063 BPM Atrial Rate : 063 BPM P-R Int : 152 ms QRS Dur : 080 ms QT Int : 426 ms P-R-T Axes : 023 034 046 degrees QTc Int : 435 ms POOR DATA QUALITY, INTERPRETATION MAY BE ADVERSELY AFFECTED NORMAL SINUS RHYTHM LOW VOLTAGE QRS SEPTAL INFARCT , AGE UNDETERMINED ABNORMAL ECG WHEN COMPARED WITH ECG OF 06-NOV-2018 04:51, SEPTAL INFARCT IS NOW PRESENT Confirmed by ALEC WOODS, FREDERICK ([id number]) on 12/05/2018 9:54:47 AM Referred By: Confirmed By:FREDERICK MICHAEL MD
--- NOTE | 2018-12-05 11:45 | CON.ID ---
Consult Consult Specialty:: inferctious diseases Referred by:: hospitalist Reason for Consultation:: uti,abd pain - History of Present Illness Chief Complaint: flank pain History of Present Illness: 43 y/o AAF urological issues with renal stones leading to CKD and known b/l hydronephross and is s/p b/l nephrostomy which eventually ended up converted to ileal conduit ([facility] 2006) complicated by frequent UTIs. Patient has grown multiple organisms in her urine including Klebsiella Pneumoniae, ESBL E coli, Citrbacter. Pt seem in ER 2 days ago prescribed levaquin, patient was seen in the office and told if the flank pain increases inspite of levaquin to go to er and advised to get urine cx - History Source History Provided By: Patient Limitations to Obtaining History: No Limitations - Past Medical History Gastrointestinal: Yes: Hiatal Hernia, Other (ileal conduit; umbilical incisional hernia) Hepatobiliary: Yes: Cholelithiasis Renal/: Yes: Renal Inusuff (s/p urinary diversion, bilateral nephrostomies converted to ileal conduit ~2006 [facility]), Renal Calculi, UTI ...LMP: 11/26/18 ...: No Psych: Yes: Anxiety, Depression Endocrine: Yes: Other (prior abnormal TFTs) - Past Surgical History Past Surgical History: Yes: Cystectomy, Ileal Conduit - Alcohol/Substance Use Hx Alcohol Use: No History of Substance Use: reports: Marijuana (daily) Date of Last Use: 05/09/18 - Smoking History Smoking history: Former smoker Have you smoked in the past 12 months: Yes Aproximately how many cigarettes per day: 3 If you are a former smoker, when did you quit?: 1 Month ago - Social History Usual Living Arrangement: Alone ADL: Independent History of Recent Travel: No Home Medications - Allergies Allergies/Adverse Reactions: Allergies Allergy/AdvReac Type Severity Reaction Status Date / Time No Known Allergies Allergy Verified 12/05/18 05:38 - Home Medications Home Medications: Ambulatory Orders Lactobacillus Acidophilus [Bacid -] 1 tab PO DAILY 30 Days #30 tab 10/05/18 Albuterol Sulfate Inhaler - [Ventolin HFA Inhaler -] 1 - 2 inh PO Q4H PRN #1 inhaler 10/16/18 Budesonide/Formeterol Fumarate [SYMBICORT 80/4.5mcg -] 2 puff IH BID inhaler Oxycodone HCl/Acetaminophen [Percocet 5-325 mg Tablet] 1 tab PO Q4H #15 tablet MDD 6 12/03/18 Family Disease History - Family Disease History Family Disease History: CA: Mother, Respiratory: Mother Review of Systems - Review of Systems Constitutional: reports: No Symptoms Eyes: reports: No Symptoms HENT: reports: No Symptoms Neck: reports: No Symptoms Cardiovascular: reports: No Symptoms Respiratory: reports: No Symptoms Gastrointestinal: reports: No Symptoms Genitourinary: reports: Flank Pain (rt) Musculoskeletal: reports: No Symptoms Integumentary: reports: No Symptoms Neurological: reports: No Symptoms Endocrine: reports: No Symptoms Hematology/Lymphatic: reports: No Symptoms Psychiatric: reports: No Symptoms Physical Exam Vital Signs: Vital Signs Temperature 98.0 F 12/04/18 23:00 Pulse Rate 63 12/05/18 06:43 Respiratory Rate 12/05/18 06:43 Blood Pressure 115/63 12/05/18 06:43 O2 Sat by Pulse Oximetry (%) 100 12/05/18 08:35 Constitutional: Yes: Well Nourished, Calm, Mild Distress Eyes: Yes: Conjunctiva Clear HENT: Yes: Atraumatic, Normocephalic Neck: Yes: Supple, Trachea Midline Cardiovascular: Yes: Regular Rate and Rhythm Respiratory: Yes: Regular, CTA Bilaterally Gastrointestinal: Yes: Normal Bowel Sounds, Soft, Other (urostomy bag in place) Musculoskeletal: Yes: WNL Extremities: Yes: WNL Neurological: Yes: Alert, Oriented Psychiatric: Yes: Alert, Oriented Labs: CBC, BMP 12/05/18 00:30 12/05/18 00:30 Imaging - Results Cat Scan: Report Reviewed, Image Reviewed Assessment/Plan uti pyelo flank pain urostomy plan will continue zosyn await for identification of the organism rest as per the team close watch
[2018-12-05] MEDS ORDERED: PIPERACILLIN/TAZOB 3.375 GM 3.375 GM/50 ML BAG IVPB ONE (11:52)
[2018-12-05] MEDS: PIPERACILLIN/TAZOB 3.375 GM 3.375 GM in DEXTROSE 5%-WATER - 50 ML IVPB SCH ×2 (11:58→17:11)
--- NOTE | 2018-12-05 16:31 | PN ---
Progress Note, Physician Chief Complaint: Complicated UTI History of Present Illness: Patient Name: Ginny Stroud Date: 1975 Address: [place] [address] Sex: Female Rx Written Rx Dispensed Drug Quantity Days Supply Prescriber Name 12/03/2018 12/03/2018 oxycodone-acetaminophen 5-325 mg tablet 15 2 Oneyda Spaulding 11/06/2018 11/07/2018 oxycodone hcl 30 mg tablet 120 30 Camille Menjivar (PA ) 10/09/2018 10/09/2018 oxycodone hcl 30 mg tablet 120 30 Camille Menjivar (PA ) 09/04/2018 09/05/2018 oxycodone hcl 30 mg tablet 120 30 Camille Menjivar (JOEL ) 08/07/2018 08/07/2018 oxycodone hcl 30 mg tablet 120 30 Camille Menjivar (PA ) 07/09/2018 07/09/2018 oxycodone hcl 30 mg tablet 120 30 Camille Menjivar (PA ) 06/11/2018 06/11/2018 oxycodone hcl 30 mg tablet 120 30 Daniel Newell MD 05/09/2018 05/09/2018 oxycodone hcl 30 mg tablet 120 30 Camille Menjivar (JOEL ) 04/09/2018 04/09/2018 oxycodone hcl 30 mg tablet 120 30 Camille Menjivar (PA ) 03/07/2018 03/08/2018 oxycodone hcl 30 mg tablet 120 30 Camille Menjivar (PA ) 02/06/2018 02/06/2018 oxycodone hcl 30 mg tablet 120 30 Camille Menjivar (JOEL ) UC done outpatient showing positive E Faecalis + citrobacter Freundii-sensitive to zosyn Urology consult Seen by ID - Current Medication List Current Medications: Active Medications Albuterol Sulfate (Ventolin 0.083% Nebulizer Soln -) 1 amp NEB Q8H PRN PRN Reason: SHORT OF BREATH/WHEEZING Budesonide/Formoterol Fumarate (Symbicort 80/4.5mcg -) 2 puff IH BID [facility] Last Admin: 12/05/18 09:45 Dose: Not Given Heparin Sodium (Porcine) (Heparin -) 5,000 unit SQ BID [facility] Last Admin: 12/05/18 09:44 Dose: 5,000 unit Sodium Chloride (Normal Saline -) 1,000 mls @ 40 mls/hr IV ASDIR PATRICK Last Admin: 12/05/18 02:56 Dose: 40 mls/hr Piperacillin Sod/Tazobactam (Sod 3.375 gm/ Dextrose) 50 mls @ 100 mls/hr IVPB Q8H-IV PATRICK; Protocol Last Admin: 12/05/18 11:58 Dose: 100 mls/hr Morphine Sulfate (Morphine Sulfate) 2 mg IVPUSH Q6H PRN PRN Reason: PAIN LEVEL 6-10 Last Admin: 12/05/18 09:44 Dose: 2 mg Ondansetron HCl (Zofran Injection) 4 mg IVPB Q6H PRN PRN Reason: NAUSEA Last Admin: 12/05/18 08:00 Dose: 4 mg - Objective Vital Signs: Vital Signs Temperature 97.9 F 12/05/18 13:33 Pulse Rate 63 12/05/18 13:33 Respiratory Rate 17 12/05/18 13:33 Blood Pressure 126/72 12/05/18 13:33 O2 Sat by Pulse Oximetry (%) 99 12/05/18 13:33 Constitutional: Yes: Well Nourished, No Distress, Calm, Obese Cardiovascular: Yes: Regular Rate and Rhythm Respiratory: Yes: Regular Gastrointestinal: Yes: Normal Bowel Sounds, Soft, Abdomen, Obese Genitourinary: Yes: Other (right ileal conduit) Musculoskeletal: Yes: WNL Extremities: Yes: WNL Edema: No Peripheral Pulses WNL: Yes Neurological: Yes: Alert, Oriented Psychiatric: Yes: Alert, Oriented Labs: CBC, BMP 12/05/18 00:30 12/05/18 00:30 Problem List - Problems (1) Pyelonephritis Assessment/Plan: -Seen by Urology and ID -Received 8 doses of Zosyn -No intervention recommended by Urology, pt to f/u with [facility] Code(s): N12 - TUBULO-INTERSTITIAL NEPHRITIS, NOT SPCF ACUTE OR CHRONIC (2) CKD (chronic kidney disease) Assessment/Plan: -Seen by nephrology -Cr stable at this time - Code(s): N18.9 - CHRONIC KIDNEY DISEASE, UNSPECIFIED Qualifiers: Chronic kidney disease stage: unspecified stage Qualified Code(s): N18.9 - Chronic kidney disease, unspecified (3) Ileal conduit stomal stenosis Assessment/Plan: -Seen by Urology, recommended f/u at [facility], pt has not seen Her original surgeon Dr Pasha Hoffman Code(s): T85.858A - STENOSIS DUE TO OTHER INTERNAL PROSTH DEV/GRFT, INIT (4) Urinary tract infection Assessment/Plan: -UC reviewed -IV abx -ID consult Code(s): N39.0 - URINARY TRACT INFECTION, SITE NOT SPECIFIED Qualifiers: Urinary tract infection type: site unspecified Hematuria presence: without hematuria Qualified Code(s): N39.0 - Urinary tract infection, site not specified Assessment/Plan See problem list Pt self ambulatory
[2018-12-05] MEDS ORDERED: DEXTROSE 5%-WATER - 50 ML IVPB ONE (16:32)
[2018-12-05] MEDS ORDERED: PIPERACILLIN/TAZOBACTAM 3.375 GM VIAL IVPB ONE (16:32)
[2018-12-05 17:20] VITALS: BMI 38.2
[2018-12-05] MEDS ORDERED: oxyCODONE HCL 5 MG TABLET PO PRN (17:53)
[2018-12-05] MEDS: DOCUSATE SODIUM 100 MG CAPSULE (FP) PO SCH (22:32)
[2018-12-05] MEDS ORDERED: MORPHINE SULFATE 2 MG/ML VIAL IM ONE (22:39)
[2018-12-06] MEDS ORDERED: DEXTROSE 5%-WATER - 50 ML IVPB ONE ×2 (01:29→10:21)
[2018-12-06] MEDS ORDERED: PIPERACILLIN/TAZOBACTAM 3.375 GM VIAL IVPB ONE ×2 (01:29→10:20)
[2018-12-06] MEDS: PIPERACILLIN/TAZOB 3.375 GM 3.375 GM in DEXTROSE 5%-WATER - 50 ML IVPB SCH ×3 (03:12→19:23)
[2018-12-06 07:13] LABS: HEMATOCRIT 40.7 % (32.4-45.2); HEMOGLOBIN 13.7 GM/dL (10.7-15.3); MCH 30.6 pg (25.7-33.7); MCHC 33.8 g/dl (32.0-36.0); MEAN CELL VOLUME 90.8 fl (80-96); MEAN PLT VOLUME 9.7 fl (7.5-11.1); PLATELET COUNT 224 K/MM3 (134-434); RBC 4.48 M/mm3 (3.60-5.2); RDW 14.6 % (11.6-15.6); WHITE BLOOD COUNT 6.1 K/mm3 (4.0-10.0)
[2018-12-06 07:30] LABS: ANION GAP 8 MMOL/L (8-16); BLOOD UREA NITROGEN 17 mg/dL (7-18); CALCIUM 8.4 mg/dL (8.5-10.1); CHLORIDE 111 mmol/L (98-107); CO2 24 mmol/L (21-32); CREATININE 2.1 mg/dL (0.55-1.3); GLUCOSE,RANDOM 77 mg/dL (74-106); POTASSIUM 4.2 mmol/L (3.5-5.1); SODIUM 143 mmol/L (136-145)
[2018-12-06] MEDS: LACTOBACILLUS ACIDOPHILUS 1 TABLET PO SCH (10:26)
[2018-12-06] MEDS: PANTOPRAZOLE 40 MG TABLET (FP) PO SCH (10:26)
[2018-12-06] MEDS: HEPARIN NA (PORCINE) 5,000 UNITS/ML 1ML VIAL SQ SCH ×2 (10:27→22:17)
[2018-12-06] MEDS: SODIUM CHLORIDE 1,000 ML IV SCH (10:27)
[2018-12-06] MEDS: BUDESONIDE/FORMETEROL FUMARATE 80/4.5 mcg INHALER IH SCH ×2 (10:28→22:17)
--- NOTE | 2018-12-06 10:33 | PN ---
Progress Note, Physician Chief Complaint: Complicated UTI History of Present Illness: Previous notes and events reviewed awake and alert NAD patient complain of aching lower back pain 05/29, states current pain medication is not helping denies chest pain or SOB wbc nl, afebrile - Current Medication List Current Medications: Active Medications Albuterol Sulfate (Ventolin 0.083% Nebulizer Soln -) 1 amp NEB Q8H PRN PRN Reason: SHORT OF BREATH/WHEEZING Budesonide/Formoterol Fumarate (Symbicort 80/4.5mcg -) 2 puff IH BID [facility] Last Admin: 12/06/18 10:28 Dose: 2 puff Docusate Sodium (Colace -) 300 mg PO HS [facility] Last Admin: 12/05/18 22:32 Dose: Not Given Heparin Sodium (Porcine) (Heparin -) 5,000 unit SQ BID [facility] Last Admin: 12/06/18 10:27 Dose: 5,000 unit Sodium Chloride (Normal Saline -) 1,000 mls @ 40 mls/hr IV ASDIR [facility] Last Admin: 12/06/18 10:27 Dose: Not Given Piperacillin Sod/Tazobactam (Sod 3.375 gm/ Dextrose) 50 mls @ 100 mls/hr IVPB Q8H-IV [facility]; Protocol Last Admin: 12/06/18 10:26 Dose: 100 mls/hr Lactobacillus Acidophilus (Bacid -) 1 tab PO DAILY [facility] Last Admin: 12/06/18 10:26 Dose: 1 tab Ondansetron HCl (Zofran Injection) 4 mg IVPB Q6H PRN PRN Reason: NAUSEA Last Admin: 12/05/18 17:11 Dose: 4 mg Oxycodone HCl (Roxicodone -) 5 mg PO Q4H PRN PRN Reason: PAIN LEVEL 6-10 Pantoprazole Sodium (Protonix -) 40 mg PO DAILY [facility] Last Admin: 12/06/18 10:26 Dose: 40 mg - Objective Vital Signs: Vital Signs Temperature 98.2 F 12/05/18 17:20 Pulse Rate 77 12/05/18 17:20 Respiratory Rate 18 12/05/18 17:20 Blood Pressure 131/71 12/05/18 17:20 O2 Sat by Pulse Oximetry (%) 99 12/05/18 16:40 Constitutional: Yes: Well Nourished Eyes: Yes: Conjunctiva Clear Cardiovascular: Yes: Regular Rate and Rhythm Respiratory: Yes: Regular, CTA Bilaterally Gastrointestinal: Yes: Normal Bowel Sounds, Soft, Tenderness (suprapubic) Genitourinary: Yes: Other (ileal conduit, clear urine noted) Musculoskeletal: Yes: Back Pain Extremities: Yes: WNL Edema: No Integumentary: Yes: WNL Neurological: Yes: Alert, Oriented Psychiatric: Yes: Alert, Oriented Labs: CBC, BMP 12/06/18 06:00 12/06/18 06:00 <Jacqueline Mansfield - Last Filed: 12/06/18 10:28> - Objective Vital Signs: Vital Signs Temperature 97.5 F L 12/07/18 15:28 Pulse Rate 65 12/07/18 15:28 Respiratory Rate 20 12/07/18 15:28 Blood Pressure 134/84 12/07/18 15:28 O2 Sat by Pulse Oximetry (%) 98 12/07/18 09:00 Labs: CBC, BMP 12/07/18 06:00 12/07/18 06:00 <Dom Bean - Last Filed: 12/07/18 21:20> Problem List - Problems (1) Pyelonephritis Code(s): N12 - TUBULO-INTERSTITIAL NEPHRITIS, NOT SPCF ACUTE OR CHRONIC (2) Abdominal pain Code(s): R10.9 - UNSPECIFIED ABDOMINAL PAIN Qualifiers: Abdominal location: unspecified location Qualified Code(s): R10.9 - Unspecified abdominal pain (3) Flank pain Code(s): R10.9 - UNSPECIFIED ABDOMINAL PAIN (4) History of nephrolithiasis Code(s): Z87.442 - PERSONAL HISTORY OF URINARY CALCULI (6) Urinary tract infection Code(s): N39.0 - URINARY TRACT INFECTION, SITE NOT SPECIFIED Qualifiers: Urinary tract infection type: site unspecified Hematuria presence: without hematuria Qualified Code(s): N39.0 - Urinary tract infection, site not specified <Jacqueline Mansfield - Last Filed: 12/06/18 10:28> Assessment/Plan -urology and nephrology consult -ID on board, cont IV ABT -contact precaution -morphine 2mg IVP stat x 1 for pain, cont with oxycodone for pain management -zofran prn for nausea/vomiting -BUN/Cr initially elev but now trending down, will cont to monitor -dvt ppx -regulat diet -OOB as tolerated <Jacqueline Mansfield - Last Filed: 12/06/18 10:28> I HAVE EXAMINED THE PATIENT AND I AGREE WITH THE ABOVE NOTE <Dom Bean - Last Filed: 12/07/18 21:20>
[2018-12-06] MEDS ORDERED: MORPHINE SULFATE 2 MG/ML VIAL IVPUSH ONE (10:36)
--- NOTE | 2018-12-06 17:11 | PN ---
Progress Note, Physician History of Present Illness: Pt is afebrile, alert. Has b/l back ache R>L , mild lower Rt abd pain. Denies recent vomiting. States she is feeling better. No other specific complaints. - Current Medication List Current Medications: Active Medications Albuterol Sulfate (Ventolin 0.083% Nebulizer Soln -) 1 amp NEB Q8H PRN PRN Reason: SHORT OF BREATH/WHEEZING Budesonide/Formoterol Fumarate (Symbicort 80/4.5mcg -) 2 puff IH BID [facility] Last Admin: 12/06/18 10:28 Dose: 2 puff Docusate Sodium (Colace -) 300 mg PO HS [facility] Last Admin: 12/05/18 22:32 Dose: Not Given Heparin Sodium (Porcine) (Heparin -) 5,000 unit SQ BID [facility] Last Admin: 12/06/18 10:27 Dose: 5,000 unit Sodium Chloride (Normal Saline -) 1,000 mls @ 40 mls/hr IV ASDIR [facility] Last Admin: 12/06/18 10:27 Dose: Not Given Piperacillin Sod/Tazobactam (Sod 3.375 gm/ Dextrose) 50 mls @ 100 mls/hr IVPB Q8H-IV [facility]; Protocol Last Admin: 12/06/18 10:26 Dose: 100 mls/hr Lactobacillus Acidophilus (Bacid -) 1 tab PO DAILY [facility] Last Admin: 12/06/18 10:26 Dose: 1 tab Ondansetron HCl (Zofran Injection) 4 mg IVPB Q6H PRN PRN Reason: NAUSEA Last Admin: 12/05/18 17:11 Dose: 4 mg Oxycodone HCl (Roxicodone -) 5 mg PO Q4H PRN PRN Reason: PAIN LEVEL 6-10 Pantoprazole Sodium (Protonix -) 40 mg PO DAILY [facility] Last Admin: 12/06/18 10:26 Dose: 40 mg - Objective Vital Signs: Vital Signs Temperature 98.4 F 12/06/18 14:36 Pulse Rate 68 12/06/18 14:36 Respiratory Rate 18 12/06/18 14:36 Blood Pressure 127/61 12/06/18 14:36 O2 Sat by Pulse Oximetry (%) 99 12/05/18 16:40 Constitutional: Yes: No Distress, Calm Neck: Yes: Supple Cardiovascular: Yes: Regular Rate and Rhythm Respiratory: Yes: Regular Gastrointestinal: Yes: Normal Bowel Sounds, Soft, Other (ileal conduit, mild RT lower abd pain) Integumentary: Yes: WNL Neurological: Yes: Alert, Oriented Labs: CBC, BMP 12/06/18 06:00 12/06/18 06:00 Problem List - Problems (1) Pyelonephritis Code(s): N12 - TUBULO-INTERSTITIAL NEPHRITIS, NOT SPCF ACUTE OR CHRONIC (2) CKD (chronic kidney disease) Code(s): N18.9 - CHRONIC KIDNEY DISEASE, UNSPECIFIED Qualifiers: Chronic kidney disease stage: unspecified stage Qualified Code(s): N18.9 - Chronic kidney disease, unspecified (3) History of nephrolithiasis Code(s): Z87.442 - PERSONAL HISTORY OF URINARY CALCULI (4) Ileal conduit stomal stenosis Code(s): T85.858A - STENOSIS DUE TO OTHER INTERNAL PROSTH DEV/GRFT, INIT (5) Obstructive uropathy Code(s): N13.9 - OBSTRUCTIVE AND REFLUX UROPATHY, UNSPECIFIED Assessment/Plan - continue antibiotics - send urine culture - monitor , pt currently afebrile/without distress, vomiting resolved
--- NOTE | 2018-12-06 17:14 | CONSULT ---
Consult Consult Specialty:: Nephrology Reason for Consultation:: CKD - History of Present Illness Chief Complaint: flank pain History of Present Illness: Pt is a 43 year old female with pmhx of ckd, nephrolithiasis and UTI who presents with UTI. She was sent in for ID. She was found to have elevated creatinine. She as history of CKD and her renal function is at baseline. She did have an episode of vomiting at home associated with pain. She says she feels better after the abx. She is now tolerating diet. - History Source History Provided By: Patient, Medical Record - Past Medical History Gastrointestinal: Yes: Hiatal Hernia, Other (ileal conduit; umbilical incisional hernia) Hepatobiliary: Yes: Cholelithiasis Renal/: Yes: Renal Inusuff (s/p urinary diversion, bilateral nephrostomies converted to ileal conduit ~2006 [facility]), Renal Calculi, UTI ...LMP: 11/26/18 ...: No Psych: Yes: Anxiety, Depression Endocrine: Yes: Other (prior abnormal TFTs) - Past Surgical History Past Surgical History: Yes: Cystectomy, Ileal Conduit - Alcohol/Substance Use Hx Alcohol Use: No History of Substance Use: reports: Marijuana (daily) Date of Last Use: 05/09/18 - Smoking History Smoking history: Former smoker Have you smoked in the past 12 months: Yes Aproximately how many cigarettes per day: 3 If you are a former smoker, when did you quit?: 1 Month ago - Social History Usual Living Arrangement: Alone ADL: Independent History of Recent Travel: No Home Medications - Allergies Allergies/Adverse Reactions: Allergies Allergy/AdvReac Type Severity Reaction Status Date / Time No Known Allergies Allergy Verified 12/05/18 05:38 - Home Medications Home Medications: Ambulatory Orders Lactobacillus Acidophilus [Bacid -] 1 tab PO DAILY 30 Days #30 tab 10/05/18 Albuterol Sulfate Inhaler - [Ventolin HFA Inhaler -] 1 - 2 inh PO Q4H PRN #1 inhaler 10/16/18 Budesonide/Formeterol Fumarate [SYMBICORT 80/4.5mcg -] 2 puff IH BID inhaler Oxycodone HCl/Acetaminophen [Percocet 5-325 mg Tablet] 1 tab PO Q4H #15 tablet MDD 6 01/14/19 Family Disease History - Family Disease History Family Disease History: CA: Mother, Respiratory: Mother Review of Systems - Review of Systems Constitutional: reports: Chills, Malaise Eyes: reports: No Symptoms HENT: reports: No Symptoms Neck: reports: No Symptoms Cardiovascular: reports: No Symptoms Respiratory: reports: No Symptoms Gastrointestinal: reports: Vomiting Genitourinary: reports: Other (ilial conduit) Integumentary: reports: No Symptoms Endocrine: reports: No Symptoms Psychiatric: reports: No Symptoms Physical Exam Vital Signs: Vital Signs Temperature 98.4 F 12/06/18 14:36 Pulse Rate 68 12/06/18 14:36 Respiratory Rate 18 12/06/18 14:36 Blood Pressure 127/61 12/06/18 14:36 O2 Sat by Pulse Oximetry (%) 99 12/05/18 16:40 Constitutional: Yes: Calm Eyes: Yes: Conjunctiva Clear HENT: Yes: Atraumatic Neck: Yes: Supple Cardiovascular: Yes: S1, S2 Respiratory: Yes: CTA Bilaterally Gastrointestinal: Yes: Normal Bowel Sounds, Soft Renal/: Yes: Other (ileal conduit) Edema: No Integumentary: Yes: Tattoos Neurological: Yes: Oriented Psychiatric: Yes: Oriented Labs: CBC, BMP 12/06/18 06:00 12/06/18 06:00 Laboratory Tests 11/05/18 11/06/18 11/09/18 23:50 08:45 08:35 WBC Hgb Anion Gap Creatinine 2.1 H 2.0 H 1.7 H 11/28/18 12/05/18 12/06/18 06:20 00:30 06:00 WBC 6.1 Hgb 13.7 Anion Gap Creatinine 2.0 H 2.1 H 12/06/18 06:00 WBC Hgb Anion Gap 8 Creatinine 2.1 H Assessment/Plan Current Medications Generic Name Dose Route Start Last Admin Trade Name Freq PRN Reason Stop Dose Admin Albuterol Sulfate 1 amp 12/05/18 01:34 Ventolin 0.083% Nebulizer Soln - NEB Q8H PRN SHORT OF BREATH/WHEEZING Budesonide/Formoterol Fumarate 2 puff 12/05/18 10:00 12/06/18 10:28 Symbicort 80/4.5mcg - IH 2 puff BID [facility] Administration Docusate Sodium 300 mg 12/05/18 22:00 01/16/19 22:32 Colace - PO Not Given HS [facility] Heparin Sodium (Porcine) 5,000 unit 12/05/18 10:00 12/06/18 10:27 Heparin - SQ 5,000 unit BID [facility] Administration Sodium Chloride 1,000 mls @ 40 mls/hr 12/05/18 02:49 12/06/18 10:27 Normal Saline - IV Not Given ASDIR [facility] Piperacillin Sod/Tazobactam 50 mls @ 100 mls/hr 12/05/18 12:00 12/06/18 10:26 Sod 3.375 gm/ Dextrose IVPB 100 mls/hr Q8H-IV [facility] Administration Protocol Lactobacillus Acidophilus 1 tab 12/06/18 10:00 12/06/18 10:26 Bacid - PO 1 tab DAILY [facility] Administration Ondansetron HCl 4 mg 12/05/18 01:57 12/05/18 17:11 Zofran Injection IVPB 4 mg Q6H PRN Administration NAUSEA Oxycodone HCl 5 mg 12/05/18 17:53 Roxicodone - PO Q4H PRN PAIN LEVEL 6-10 Pantoprazole Sodium 40 mg 12/06/18 10:00 12/06/18 10:26 Protonix - PO 40 mg DAILY [facility] Administration Laboratory Tests 12/06/18 06:00 Creat Clearance w eGFR 25.58 Impression 1. CKD 2. hydronephrosis 3. uti 4. ovarian cysts 5. anemia 6. adnexal cyst 7. nephrolithiasis Plan - renal function is stable - renal dose meds - cont fluids - monitor renal function and lytes - urology follow up - avoid nephrotoxins
--- NOTE | 2018-12-06 19:04 | CON.GU ---
Consult - Past Medical History Gastrointestinal: Yes: Hiatal Hernia, Other (ileal conduit; umbilical incisional hernia) Hepatobiliary: Yes: Cholelithiasis Renal/: Yes: Renal Inusuff (s/p urinary diversion, bilateral nephrostomies converted to ileal conduit ~[facility]), Renal Calculi, UTI ...LMP: 11/26/18 ...: No Psych: Yes: Anxiety, Depression Endocrine: Yes: Other (prior abnormal TFTs) - Past Surgical History Past Surgical History: Yes: Cystectomy, Ileal Conduit - Alcohol/Substance Use Hx Alcohol Use: No History of Substance Use: reports: Marijuana (daily) Date of Last Use: 05/09/18 - Smoking History Smoking history: Former smoker Have you smoked in the past 12 months: Yes Aproximately how many cigarettes per day: 3 If you are a former smoker, when did you quit?: 1 Month ago - Social History Usual Living Arrangement: Alone ADL: Independent History of Recent Travel: No Home Medications - Allergies Allergies/Adverse Reactions: Allergies Allergy/AdvReac Type Severity Reaction Status Date / Time No Known Allergies Allergy Verified 12/05/18 05:38 - Home Medications Home Medications: Ambulatory Orders Lactobacillus Acidophilus [Bacid -] 1 tab PO DAILY 30 Days #30 tab 10/05/18 Albuterol Sulfate Inhaler - [Ventolin HFA Inhaler -] 1 - 2 inh PO Q4H PRN #1 inhaler 10/16/18 Budesonide/Formeterol Fumarate [SYMBICORT 80/4.5mcg -] 2 puff IH BID inhaler Oxycodone HCl/Acetaminophen [Percocet 5-325 mg Tablet] 1 tab PO Q4H #15 tablet MDD 6 12/03/18 Family Disease History - Family Disease History Family Disease History: CA: Mother, Respiratory: Mother Physical Exam- Vital Signs: Vital Signs Temperature 97.9 F 12/06/18 17:50 Pulse Rate 65 12/06/18 17:50 Respiratory Rate 18 12/06/18 17:50 Blood Pressure 130/70 12/06/18 17:50 O2 Sat by Pulse Oximetry (%) 99 12/05/18 16:40 Labs: CBC, BMP 12/06/18 06:00 12/06/18 06:00 Assessment/Plan 43 years old female full conscious, cooperative, a febrile and denies any abnormal symptoms regarding just midl flank pain. Pt. with history of ileal conduuit s/p at [facility] 2006 as a treatment to the recurrent nephrolithiasis and UTI. its functioning and urine drainage. patient was admitted two days ago for abdominal pain and vomiting without fever. Blood work today: Hb 14 WBC 7.0 plat 251 Na 143 K 4.2 BUN 22 Creatinine 2.1 ( this range since more than 6 months) CT Scan without contrast today revealed to Bi lateral renal mild hydronephrosis with Bilateral proximal ureters Mild dilatation , 4mm non obstructing stone in RT lower pole kidney. in addition to cortical scarring Gallbladder stones without acute cholecystitis. Patient on zosyn 3.375 Q8hr. Impression: A febrile , not in pain patient with chronic bi lateral mild hydro -uretro nephrosis and 4 mm non obstructing stone in RT lower pole kidney. S/P ileal conduit 2006 . stable kidny function. Gallbladder stones Plan : Flow-up with [facility] for reversed urinary diversion . RTC after Discharge for RT. ESWL
[2018-12-06] MEDS: DOCUSATE SODIUM 100 MG CAPSULE (FP) PO SCH (22:17)
[2018-12-06] MEDS ORDERED: ACETAMINOPHEN 325 MG TABLET (FP) PO PRN (23:11)
[2018-12-06] MEDS ORDERED: ZOLPIDEM TARTRATE 5 MG TABLET PO ONE (23:13)
[2018-12-06] MEDS ORDERED: oxyCODONE HCL 5 MG TABLET PO PRN (23:13)
[2018-12-06] MEDS: MORPHINE SULFATE 2 MG/ML VIAL IVPUSH PRN (23:22)
[2018-12-07] MEDS ORDERED: DEXTROSE 5%-WATER - 50 ML IVPB ONE ×2 (01:24→09:03)
[2018-12-07] MEDS ORDERED: PIPERACILLIN/TAZOBACTAM 3.375 GM VIAL IVPB ONE ×2 (01:24→09:03)
[2018-12-07] MEDS: PIPERACILLIN/TAZOB 3.375 GM 3.375 GM in DEXTROSE 5%-WATER - 50 ML IVPB SCH ×2 (02:01→10:36)
[2018-12-07] MEDS: SODIUM CHLORIDE 1,000 ML IV SCH (04:59)
[2018-12-07] MEDS: MORPHINE SULFATE 2 MG/ML VIAL IVPUSH PRN (05:00)
[2018-12-07 07:10] LABS: HEMATOCRIT 39.5 % (32.4-45.2); HEMOGLOBIN 13.5 GM/dL (10.7-15.3); MCH 30.7 pg (25.7-33.7); MCHC 34.2 g/dl (32.0-36.0); MEAN CELL VOLUME 89.7 fl (80-96); MEAN PLT VOLUME 9.4 fl (7.5-11.1); PLATELET COUNT 229 K/MM3 (134-434); RBC 4.41 M/mm3 (3.60-5.2); RDW 14.8 % (11.6-15.6); WHITE BLOOD COUNT 5.8 K/mm3 (4.0-10.0)
[2018-12-07 07:54] LABS: ALBUMIN 2.9 g/dl (3.4-5.0); ALK PHOS 64 U/L (45-117); ANION GAP 4 MMOL/L (8-16); BILIRUBIN,TOTAL 0.6 mg/dL (0.2-1); BLOOD UREA NITROGEN 14 mg/dL (7-18); CALCIUM 8.7 mg/dL (8.5-10.1); CHLORIDE 110 mmol/L (98-107); CO2 26 mmol/L (21-32); GLUCOSE,RANDOM 81 mg/dL (74-106); POTASSIUM 4.4 mmol/L (3.5-5.1); SGOT/AST 17 U/L (15-37); SGPT/ALT 16 U/L (13-61); SODIUM 140 mmol/L (136-145); TOT PROT 6.1 g/dl (6.4-8.2)
[2018-12-07] MEDS ORDERED: PT OWN MED DRAWER 7, Y5N ONE (09:03)
[2018-12-07] MEDS: PANTOPRAZOLE 40 MG TABLET (FP) PO SCH (10:36)
[2018-12-07] MEDS: HEPARIN NA (PORCINE) 5,000 UNITS/ML 1ML VIAL SQ SCH (10:36)
[2018-12-07] MEDS: LACTOBACILLUS ACIDOPHILUS 1 TABLET PO SCH (10:36)
[2018-12-07] MEDS: BUDESONIDE/FORMETEROL FUMARATE 80/4.5 mcg INHALER IH SCH (10:38)
[2018-12-07] MEDS ORDERED: MORPHINE SULFATE 2 MG/ML VIAL IVPUSH PRN (11:26)
[2018-12-07] MEDS ORDERED: oxyCODONE HCL 5 MG TABLET PO PRN (12:07)
--- NOTE | 2018-12-07 12:08 | PN ---
Progress Note, Physician Chief Complaint: Complicated UTI Pyelonephritis History of Present Illness: Patient Name: Ginny Stroud Date: 1975 [address]: [address] [place], [place] [address] [address] Sex: Female Rx Written Rx Dispensed Drug Quantity Days Supply Prescriber Name 12/03/2018 12/03/2018 oxycodone-acetaminophen 5-325 mg tablet 15 2 Oneyda Spaulding 11/06/2018 11/07/2018 oxycodone hcl 30 mg tablet 120 30 Camille Menjivar (JOEL ) 10/09/2018 10/09/2018 oxycodone hcl 30 mg tablet 120 30 Camille Menjivar (JOEL ) 09/04/2018 09/05/2018 oxycodone hcl 30 mg tablet 120 30 Camille Menjivar (JOEL ) 08/07/2018 08/07/2018 oxycodone hcl 30 mg tablet 120 30 Camille Menjivar (JOEL ) 07/09/2018 07/09/2018 oxycodone hcl 30 mg tablet 120 30 Camille Menjivar (JOEL ) 06/11/2018 06/11/2018 oxycodone hcl 30 mg tablet 120 30 Daniel Newell MD 05/09/2018 05/09/2018 oxycodone hcl 30 mg tablet 120 30 Camille Menjivar (JOEL ) 04/09/2018 04/09/2018 oxycodone hcl 30 mg tablet 120 30 Camille Menjivar (JOEL ) 03/07/2018 03/08/2018 oxycodone hcl 30 mg tablet 120 30 Camille Menjivar (JOEL ) 02/06/2018 02/06/2018 oxycodone hcl 30 mg tablet 120 30 Camille Menjivar (JOEL ) Pt has been refusing oxycodone inpatient saying, it makes her nauseous. However , she takes oxycodone 30 mg QIDPRN at home? Seen by Urology- no intervention recommended Received 8 doses of Zosyn, possibly causing nausea perhaps? - Current Medication List Current Medications: Active Medications Acetaminophen (Tylenol -) 650 mg PO Q6H PRN PRN Reason: PAIN LEVEL 1 - 3 Albuterol Sulfate (Ventolin 0.083% Nebulizer Soln -) 1 amp NEB Q8H PRN PRN Reason: SHORT OF BREATH/WHEEZING Budesonide/Formoterol Fumarate (Symbicort 80/4.5mcg -) 2 puff IH BID [facility] Last Admin: 12/07/18 10:38 Dose: 2 puff Docusate Sodium (Colace -) 300 mg PO HS [facility] Last Admin: 12/06/18 22:17 Dose: Not Given Heparin Sodium (Porcine) (Heparin -) 5,000 unit SQ BID [facility] Last Admin: 12/07/18 10:36 Dose: 5,000 unit Piperacillin Sod/Tazobactam (Sod 3.375 gm/ Dextrose) 50 mls @ 100 mls/hr IVPB Q8H-IV [facility]; Protocol Last Admin: 12/07/18 10:36 Dose: 100 mls/hr Lactobacillus Acidophilus (Bacid -) 1 tab PO DAILY [facility] Last Admin: 12/07/18 10:36 Dose: 1 tab Morphine Sulfate (Morphine Sulfate) 2 mg IVPUSH Q6H PRN PRN Reason: PAIN LEVEL 7 - 10 Last Admin: 12/07/18 11:26 Dose: 2 mg Ondansetron HCl (Zofran Injection) 4 mg IVPB Q6H PRN PRN Reason: NAUSEA Last Admin: 12/05/18 17:11 Dose: 4 mg Oxycodone HCl (Roxicodone -) 5 mg PO Q4H PRN PRN Reason: PAIN LEVEL 4 - 6 Pantoprazole Sodium (Protonix -) 40 mg PO DAILY [facility] Last Admin: 12/07/18 10:36 Dose: 40 mg - Objective Vital Signs: Vital Signs Temperature 97.7 F 12/07/18 11:00 Pulse Rate 70 12/07/18 11:00 Respiratory Rate 18 12/07/18 11:00 Blood Pressure 122/92 12/07/18 11:00 O2 Sat by Pulse Oximetry (%) 98 12/07/18 09:00 Constitutional: Yes: Well Nourished, No Distress, Calm, Obese Cardiovascular: Yes: Regular Rate and Rhythm Respiratory: Yes: Regular Gastrointestinal: Yes: Normal Bowel Sounds, Soft, Abdomen, Obese Genitourinary: Yes: Other (right ileal conduit) Musculoskeletal: Yes: WNL Extremities: Yes: WNL Edema: No Peripheral Pulses WNL: Yes Neurological: Yes: Alert, Oriented Psychiatric: Yes: Alert, Oriented Labs: CBC, BMP 12/07/18 06:00 12/07/18 06:00 Problem List - Problems (1) Pyelonephritis Assessment/Plan: -Seen by Urology and ID -Received 8 doses of Zosyn -No intervention recommended by Urology, pt to f/u with [facility] Code(s): N12 - TUBULO-INTERSTITIAL NEPHRITIS, NOT SPCF ACUTE OR CHRONIC (2) Abdominal pain Assessment/Plan: -Takes oxycodone 30 mg QID PRN at home, would resume -D/C morphine -On PPI -On Zofran PRN Code(s): R10.9 - UNSPECIFIED ABDOMINAL PAIN Qualifiers: Abdominal location: unspecified location Qualified Code(s): R10.9 - Unspecified abdominal pain (3) CKD (chronic kidney disease) Assessment/Plan: -Seen by nephrology -Cr stable at this time - Code(s): N18.9 - CHRONIC KIDNEY DISEASE, UNSPECIFIED Qualifiers: Chronic kidney disease stage: unspecified stage Qualified Code(s): N18.9 - Chronic kidney disease, unspecified (4) Ileal conduit stomal stenosis Assessment/Plan: -Seen by Urology, recommended f/u at [facility], pt has not seen Her original surgeon Dr Pasha Hoffman Code(s): T85.858A - STENOSIS DUE TO OTHER INTERNAL PROSTH DEV/GRFT, INIT Assessment/Plan see problem list
--- NOTE | 2018-12-07 14:25 | PN ---
Progress Note, Physician History of Present Illness: patient stable denies any pain says wants to go home organisms and cx noted - Current Medication List Current Medications: Active Medications Acetaminophen (Tylenol -) 650 mg PO Q6H PRN PRN Reason: PAIN LEVEL 1 - 3 Albuterol Sulfate (Ventolin 0.083% Nebulizer Soln -) 1 amp NEB Q8H PRN PRN Reason: SHORT OF BREATH/WHEEZING Budesonide/Formoterol Fumarate (Symbicort 80/4.5mcg -) 2 puff IH BID [facility] Last Admin: 12/07/18 10:38 Dose: 2 puff Docusate Sodium (Colace -) 300 mg PO HS [facility] Last Admin: 12/06/18 22:17 Dose: Not Given Heparin Sodium (Porcine) (Heparin -) 5,000 unit SQ BID [facility] Last Admin: 12/07/18 10:36 Dose: 5,000 unit Piperacillin Sod/Tazobactam (Sod 3.375 gm/ Dextrose) 50 mls @ 100 mls/hr IVPB Q8H-IV [facility]; Protocol Last Admin: 12/07/18 10:36 Dose: 100 mls/hr Lactobacillus Acidophilus (Bacid -) 1 tab PO DAILY [facility] Last Admin: 12/07/18 10:36 Dose: 1 tab Ondansetron HCl (Zofran Injection) 4 mg IVPB Q6H PRN PRN Reason: NAUSEA Last Admin: 12/05/18 17:11 Dose: 4 mg Oxycodone HCl (Roxicodone -) 30 mg PO Q6H PRN PRN Reason: PAIN LEVEL 6-10 Pantoprazole Sodium (Protonix -) 40 mg PO DAILY [facility] Last Admin: 12/07/18 10:36 Dose: 40 mg - Objective Vital Signs: Vital Signs Temperature 97.7 F 12/07/18 11:00 Pulse Rate 70 12/07/18 11:00 Respiratory Rate 18 12/07/18 11:00 Blood Pressure 122/92 12/07/18 11:00 O2 Sat by Pulse Oximetry (%) 98 12/07/18 09:00 Constitutional: Yes: No Distress, Calm Cardiovascular: Yes: Regular Rate and Rhythm Respiratory: Yes: Regular, CTA Bilaterally Gastrointestinal: Yes: Normal Bowel Sounds, Soft Genitourinary: Yes: Other (urostomy) Musculoskeletal: Yes: WNL Extremities: Yes: WNL Neurological: Yes: Alert, Oriented Psychiatric: Yes: Alert, Oriented Labs: CBC, BMP 12/07/18 06:00 12/07/18 06:00 Assessment/Plan uti pyelo flank pain urostomy plan organisms noted sensitivities noted can change to po augmentin 875 mg po bid for another 10 days rest as per the team
[2018-12-07 15:31] VITALS: BP 134/84; PULSE 65; TEMP 97.5
== END 2018-12-07 17:04 | disposition home or self-care (01) | DRG 463 ==
LOC: JER 21:50 → JERBED 12-05 01:25 → J7W 12-05 14:45
PROVIDERS: ADMIT Internal Medicine; ATTEND Family Medicine
DX: N13.6 Pyonephrosis (principal); Z93.6 Other artificial openings of urinary tract status; N18.9 Chronic kidney disease, unspecified; N20.0 Calculus of kidney; K80.20 Calculus of gallbladder without cholecystitis without obstruction; E66.9 Obesity, unspecified; Z68.38 Body mass index [BMI] 38.0-38.9, adult; F17.210 Nicotine dependence, cigarettes, uncomplicated; K44.9 Diaphragmatic hernia without obstruction or gangrene; F12.10 Cannabis abuse, uncomplicated; B95.2 Enterococcus as the cause of diseases classified elsewhere; B96.89 Other specified bacterial agents as the cause of diseases classified elsewhere; F32.9 Major depressive disorder, single episode, unspecified; F41.9 Anxiety disorder, unspecified; N83.209 Unspecified ovarian cyst, unspecified side
CPT/HCPCS: 36415; 74018-TC-FY; 74176-TC; 80048; 80053; 82962; 83036; 85025; 85027; 93005; 93010; 97116-GP; 97161-GP; 99285-25; J1644; J7030

== ENCOUNTER 2019-01-10 16:20 | Emergency (ER) | payer OTHER ==
[2019-01-10 16:30] VITALS: BP 123/91; PULSE 76; TEMP 98.3; BMI 34.8
--- NOTE | 2019-01-10 17:43 | PDOC ---
History of Present Illness - General Chief Complaint: Pain, Acute Stated Complaint: PAIN IN STOMACE KNOTS IN UNDER ARM BOTH Time Seen by Provider: 01/10/19 17:16 History Source: Patient Exam Limitations: No Limitations Past History - Travel Traveled outside of the country in the last 30 days: No Close contact w/someone who was outside of country & ill: No - Past Medical History Allergies/Adverse Reactions: Allergies Allergy/AdvReac Type Severity Reaction Status Date / Time oxycodone [From Roxicodone] AdvReac Intermediate Vomiting Verified 01/10/19 16: 24 Home Medications: Ambulatory Orders Lactobacillus Acidophilus [Bacid -] 1 tab PO DAILY 30 Days #30 tab 10/05/18 Albuterol Sulfate Inhaler - [Ventolin HFA Inhaler -] 1 - 2 inh PO Q4H PRN #1 inhaler 10/16/18 Budesonide/Formeterol Fumarate [SYMBICORT 80/4.5mcg -] 2 puff IH BID inhaler Acetaminophen [Tylenol .Regular Strength -] 650 mg PO Q6H PRN tablet 12/07/18 Pantoprazole Sodium [Protonix -] 40 mg PO DAILY #30 tablet.ec 12/07/18 Cephalexin Monohydrate [Keflex -] 500 mg PO BID 7 Days #14 capsule 01/10/19 Nitrofurantoin Macrocrystal [Nitrofurantoin] 100 mg PO BID 7 Days #14 capsule Oxycodone HCl/Acetaminophen [Percocet 5-325 mg Tablet] 1 tab PO Q6H PRN #5 tablet MDD 3 01/10/19 Anemia: Yes Asthma: No Cancer: No Cardiac Disorders: No CVA: No COPD: Yes CHF: No Dementia: No Diabetes: No GI Disorders: No Disorders: Yes (Ileal Conduit, H/O KIDNEY STONES) HTN: No Hypercholesterolemia: No Kidney Stones: Yes (kidney failure) Liver Disease: No Seizures: No Thyroid Disease: No - Surgical History Abdominal Surgery: No Appendectomy: No Cardiac Surgery: No Cholecystectomy: No Lung Surgery: No Neurologic Surgery: No Orthopedic Surgery: No - Reproductive History (#): 0 Para: 0 - Immunization History Immunization Up to Date: Yes - Suicide/Smoking/Psychosocial Hx Smoking Status: No Smoking History: Smoker current status UNK Have you smoked in the past 12 months: Yes Number of Cigarettes Smoked Daily: 3 If you are a former smoker, when did you quit?: 1 Month ago Cigars Per Day: 0 Information on smoking cessation initiated: No 'Breaking Loose' booklet given: 09/03/18 Hx Alcohol Use: No Drug/Substance Use Hx: Yes Substance Use Type: Marijuana Hx Substance Use Treatment: No Review of Systems - Review of Systems Able to Perform ROS?: Yes Comments:: 01/10/19 20:22 CONSTITUTIONAL: Absent: fever, chills, diaphoresis, generalized weakness, malaise, loss of appetite HEENT: Absent: rhinorrhea, nasal congestion, throat pain, throat swelling, difficulty swallowing, mouth swelling, ear pain, eye pain, visual Changes CARDIOVASCULAR: Absent: chest pain, loss of consciousness, palpitations, irregular heart rate, peripheral edema RESPIRATORY: Absent: cough, shortness of breath, dyspnea with exertion, orthopnea, wheezing, stridor, hemoptysis GASTROINTESTINAL: Present: lower abdominal pain Absent: abdominal distension, nausea, vomiting, diarrhea, constipation, melena, hematochezia GENITOURINARY: Absent: dysuria, frequency, urgency, hesitancy, hematuria, flank pain, genital pain MUSCULOSKELETAL: Absent: myalgia, arthralgia, joint swelling SKIN: Present: Bumps under arm pits b/l. Absent: rash, itching, pallor HEMATOLOGIC/IMMUNOLOGIC: Absent: easy bleeding, easy bruising, lymphadenopathy, frequent infections ENDOCRINE: Absent: unexplained weight gain, unexplained weight loss, heat intolerance, cold intolerance NEUROLOGIC: Absent: headache, focal weakness or paresthesias, dizziness, unsteady gait, seizure, mental status changes, bladder or bowel incontinence PSYCHIATRIC: Absent: anxiety, depression, suicidal or homicidal ideation, hallucinations. Is the patient limited Czech proficient: No *Physical Exam - Vital Signs Last Vital Signs Temp Pulse Resp BP Pulse Ox 98.3 F 76 18 123/91 95 01/10/19 16:28 01/10/19 16:28 01/10/19 16:28 01/10/19 16:28 01/10/19 16:28 - Physical Exam Comments: 01/10/19 20:23 GENERAL: Well developed, well nourished. Awake and alert. No acute distress. HEENT: Normocephalic, atraumatic. PERRLA, EOMI. No conjunctival pallor. Sclera are non- icteric. Moist mucous membranes. Oropharynx is clear. NECK: Supple. Full ROM. No JVD. Carotid pulses 2+ and symmetric, without bruits. No thyromegaly. No lymphadenopathy. CARDIOVASCULAR: Regular rate and rhythm. No murmurs, rubs, or gallops. Distal pulses are 2+ and symmetric. PULMONARY: No evidence of respiratory distress. Lungs clear to auscultation bilaterally. No wheezing, rales or rhonchi. ABDOMINAL: Soft. Non-tender. Non-distended. No rebound or guarding. No organomegaly. Normoactive bowel sounds. MUSCULOSKELETAL Normal range of motion at all joints. No bony deformities or tenderness. No CVA tenderness. EXTREMITIES: No cyanosis. No clubbing. No edema. No calf tenderness. SKIN: Warm and dry. Normal capillary refill. No rashes. No jaundice. NEUROLOGICAL: Alert, awake, appropriate. Cranial nerves 2-12 intact. No deficits to light touch and temperature in face, upper extremities and lower extremities. No motor deficits in the in face, upper extremities and lower extremities. Normoreflexic in the upper and lower extremities. Normal speech. Toes are down- going bilaterally. Gait is normal without ataxia. PSYCHIATRIC: Cooperative. Good eye contact. Appropriate mood and affect. Moderate Sedation - Procedure Monitoring Vital Signs: Procedure Monitoring Vital Signs Temperature 98.3 F 01/10/19 16:28 Pulse Rate 76 01/10/19 16:28 Respiratory Rate 18 01/10/19 16:28 Blood Pressure 123/91 01/10/19 16:28 O2 Sat by Pulse Oximetry (%) 95 01/10/19 16:28 ED Treatment Course - LABORATORY CBC & Chemistry Diagram: 01/10/19 17:59 01/10/19 17:59 Medical Decision Making - Medical Decision Making 01/10/19 19:20 Pt is a 43 y/o F who presents to the ED with two days of RLQ pain and two weeks of adenexal pain On exam; pt with hyranditis suppurtivia b/l. Pt on abx from her PCP. Nothing able to drain TTP of the RLQ. PT with history of both stones and cysts. Will obtain both CT Spiral and transvaginal us Labs and urine ordered Normal saline and toradol for pain Sign out given to JOEL Santoro. Dispo pending labs and scans. *DC/Admit/Observation/Transfer Diagnosis at time of Disposition: Ovarian cyst, RLQ abdominal pain, Cholelithiasis, Urinary tract infection, Renal calculus or stone, Axillary hidradenitis suppurativa - Discharge Dispostion Disposition: HOME Condition at time of disposition: Stable - Prescriptions Prescriptions: Cephalexin Monohydrate [Keflex -] 500 mg PO BID 7 Days #14 capsule Nitrofurantoin Macrocrystal [Nitrofurantoin] 100 mg PO BID 7 Days #14 capsule Oxycodone HCl/Acetaminophen [Percocet 5-325 mg Tablet] 1 tab PO Q6H PRN #5 tablet MDD 3 PRN Reason: severe pain - Referrals Referrals: Cristina Art MD [Staff Physician] - Gurwinder Garcia MD [Staff Physician] - Casey Macias MD [Staff Physician] - - Patient Instructions Printed Discharge Instructions: Ovarian Cyst, Kidney Stones -- Adult Additional Instructions: Take medications as prescribed. Follow-up with Dr. Art dermatology for hydradenitis of underarm Follow-up with Dr. Macias [employer]ER for ovarian cyst. Follow-up with Dr. Soto will see urology for kidney stones. - Post Discharge Activity
[2019-01-10] MEDS ORDERED: SODIUM CHLORIDE 1,000 ML IV STA (17:44)
[2019-01-10 18:46] LABS: BASO % 0.2 % (0-2.0); HEMATOCRIT 42.2 % (32.4-45.2); HEMOGLOBIN 14.7 GM/dL (10.7-15.3); LYMPH % 14.4 % (8-40); MCH 31.6 pg (25.7-33.7); MCHC 34.8 g/dl (32.0-36.0); MEAN CELL VOLUME 90.8 fl (80-96); MEAN PLT VOLUME 9.6 fl (7.5-11.1); MONO % 4.1 % (3.8-10.2); NEUT % 76.3 % (42.8-82.8); PLATELET COUNT 241 K/MM3 (134-434); RBC 4.65 M/mm3 (3.60-5.2); RDW 14.5 % (11.6-15.6); WHITE BLOOD COUNT 7.8 K/mm3 (4.0-10.0)
[2019-01-10] MEDS ORDERED: KETOROLAC TROMETHAMINE 15 MG/ML VIAL IVPUSH ONE (18:50)
--- NOTE | 2019-01-10 19:13 | PDOC ---
*Physical Exam - Vital Signs Last Vital Signs Temp Pulse Resp BP Pulse Ox 98.3 F 76 18 123/91 95 01/10/19 16:28 01/10/19 16:28 01/10/19 16:28 01/10/19 16:28 01/10/19 16:28 ED Treatment Course - LABORATORY CBC & Chemistry Diagram: 01/10/19 17:59 01/10/19 17:59 - ADDITIONAL ORDERS Additional order review: 01/10/19 17:59 RBC 4.65 MCV 90.8 MCHC 34.8 RDW 14.5 MPV 9.6 Neutrophils % 76.3 D Lymphocytes % 14.4 D Monocytes % 4.1 Eosinophils % 5.0 H Basophils % 0.2 - Medications Given in the ED: ED Medications Discontinued Medications Generic Name Dose Route Start Last Admin Trade Name Freq PRN Reason Stop Dose Admin Sodium Chloride 1,000 mls @ 1,000 mls/hr 01/10/19 17:44 01/10/19 18:05 Normal Saline - IV 01/10/19 18:43 1,000 mls/hr ASDIR STA Administration Medical Decision Making - Medical Decision Making 01/10/19 19:13 Pt seen by the Advanced Practice Provider under my direct supervision Ancillary studies reviewed I agree with plan as outlined by the Advanced Practice Provider JOEL Hudson
[2019-01-10 19:32] LABS: URINE APPEARANCE SLCLOUDY; URINE BILIRUBIN NEGATIVE (<2.0 mg/dL); URINE COLOR LTYELLOW; URINE GLUCOSE (UA) NEGATIVE (NEGATIVE); URINE KETONE NEGATIVE (NEGATIVE); URINE LEUK ESTERASE 2+ (NEGATIVE); URINE NITRITE POSITIVE (NEGATIVE); URINE PROTEIN 2+ (NEGATIVE); URINE UROBILINOGEN NEGATIVE mg/dL (0.2-1.0)
[2019-01-10 19:33] LABS: HCG,QUALITATIVE URINE Negative
[2019-01-10 19:36] LABS: EPI CELLS RARE /HPF (FEW)
--- NOTE | 2019-01-10 20:21 | PDOC ---
*Physical Exam - Vital Signs Last Vital Signs Temp Pulse Resp BP Pulse Ox 98.3 F 76 18 123/91 95 01/10/19 16:28 01/10/19 16:28 01/10/19 16:28 01/10/19 16:28 01/10/19 16:28 - Physical Exam General Appearance: Yes: Nourished, Appropriately Dressed. No: Apparent Distress HEENT: positive: Normal ENT Inspection Neck: positive: Supple Respiratory/Chest: positive: Normal Breath Sounds. negative: Respiratory Distress, Accessory Muscle Use Cardiovascular: positive: Regular Rhythm, Regular Rate ED Treatment Course - LABORATORY CBC & Chemistry Diagram: 01/10/19 17:59 01/10/19 17:59 - ADDITIONAL ORDERS Additional order review: Laboratory Results 01/10/19 19:00 Urine Color Ltyellow Urine Appearance Slcloudy Urine pH 7.0 Ur Specific [place] 1.010 Urine Protein 2+ H Urine Glucose (UA) Negative Urine Ketones Negative Urine Blood 1+ H Urine Nitrite Positive Urine Bilirubin Negative Urine Urobilinogen Negative Ur Leukocyte Esterase 2+ H Urine WBC (Auto) 34 Urine RBC (Auto) 4 Ur Epithelial Cells Rare Urine HCG, Qual Negative 01/10/19 17:59 RBC 4.65 MCV 90.8 MCHC 34.8 RDW 14.5 MPV 9.6 Neutrophils % 76.3 D Lymphocytes % 14.4 D Monocytes % 4.1 Eosinophils % 5.0 H Basophils % 0.2 - Medications Given in the ED: ED Medications Discontinued Medications Generic Name Dose Route Start Last Admin Trade Name Freq PRN Reason Stop Dose Admin Sodium Chloride 1,000 mls @ 1,000 mls/hr 01/10/19 17:44 01/10/19 18:05 Normal Saline - IV 01/10/19 18:43 1,000 mls/hr ASDIR STA Administration Medical Decision Making - Medical Decision Making 01/10/19 20:52 I resumed care of days 43-year-old female with history of kidney stones, hydradenitis in bilateral axilla present with complaint of persistent right lower quadrant pain. CBCshows no elevated WBC. Chemistry labs shows elevated BUN/creatinine level which is suspected from patient given history of kidney problem using nephrotomy bag. Abdominal pelvic CT shows small 3 mm nonobstructing right renal stone with Small cholelithiasis. pelvic US shows non-specific right adnexal cyst . no evidence of torsion on ultrasound or clinic exam. Results discussed with patient and advised on follow-up with [facility] and urology for symptoms and pt voiced understanding. pt also with hydradenitis which has not been responding to previous prescribed Bactrim Abx , referral given to dermatoloy. UA shows pos leukocytes , nitrate and wbc, Patient will be discharge on Keflex and Macrobid given prior sensitivity from UTIs. Patient stable for discharge and f/u instructions given to patient *DC/Admit/Observation/Transfer Diagnosis at time of Disposition: RLQ abdominal pain, Renal calculus or stone, Axillary hidradenitis suppurativa Ovarian cyst Qualifiers: Laterality: right Qualified Code(s): N83.201 - Unspecified ovarian cyst, right side Cholelithiasis Qualifiers: Cholelithiasis location: gallbladder Cholecystitis presence: without cholecystitis Biliary obstruction: without biliary obstruction Qualified Code(s) : K80.20 - Calculus of gallbladder without cholecystitis without obstruction Urinary tract infection Qualifiers: Urinary tract infection type: acute cystitis Hematuria presence: without hematuria Qualified Code(s): N30.00 - Acute cystitis without hematuria - Discharge Dispostion Disposition: HOME Condition at time of disposition: Stable Decision to Admit order: No - Prescriptions Prescriptions: Cephalexin Monohydrate [Keflex -] 500 mg PO BID 7 Days #14 capsule Nitrofurantoin Macrocrystal [Nitrofurantoin] 100 mg PO BID 7 Days #14 capsule Oxycodone HCl/Acetaminophen [Percocet 5-325 mg Tablet] 1 tab PO Q6H PRN #5 tablet MDD 3 PRN Reason: severe pain - Referrals Referrals: Cristina Art MD [Staff Physician] - Casey Macias MD [Staff Physician] - Gurwinder Garcia MD [Staff Physician] - - Patient Instructions Printed Discharge Instructions: Ovarian Cyst, Kidney Stones -- Adult Additional Instructions: Take medications as prescribed. Follow-up with Dr. 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 Follow-up with Dr. Soto will see urology for kidney stones. - Post Discharge Activity
[2019-01-10 20:27] LABS: ANION GAP 9 MMOL/L (8-16); BLOOD UREA NITROGEN 26 mg/dL (7-18); CHLORIDE 107 mmol/L (98-107); CO2 23 mmol/L (21-32); CREATININE 2.2 mg/dL (0.55-1.3); GLUCOSE,RANDOM 187 mg/dL (74-106); POTASSIUM 4.1 mmol/L (3.5-5.1); SODIUM 139 mmol/L (136-145)
[2019-01-10 20:28] LABS: ALBUMIN 3.3 g/dl (3.4-5.0); ALK PHOS 79 U/L (45-117); BILIRUBIN,TOTAL 0.2 mg/dL (0.2-1); CALCIUM 9.2 mg/dL (8.5-10.1); SGOT/AST 19 U/L (15-37); SGPT/ALT 18 U/L (13-61); TOT PROT 7.3 g/dl (6.4-8.2)
[2019-01-10] MEDS ORDERED: KETOROLAC TROMETHAMINE 15 MG/ML VIAL ONE (20:39)
== END 2019-01-10 21:06 | disposition home or self-care (01) ==
LOC: JER 16:20
PROC: 3E0337Z Introduction of Electrolytic and Water Balance Substance into Peripheral Vein, Percutaneous Approach (ICD-10-PCS; principal; 2019-01-10)
PROC: 3E0333Z Introduction of Anti-inflammatory into Peripheral Vein, Percutaneous Approach (ICD-10-PCS; 2019-01-10)
DX: L73.2 Hidradenitis suppurativa (principal); N83.201 Unspecified ovarian cyst, right side; K80.20 Calculus of gallbladder without cholecystitis without obstruction; N30.01 Acute cystitis with hematuria; N20.0 Calculus of kidney; Z87.442 Personal history of urinary calculi
CPT/HCPCS: 36415; 74176-TC; 76830-TC; 80053; 81003; 81015; 84703; 85025; 87086; 87186; 99282-25; J7030

== ENCOUNTER 2019-01-12 11:08 | Emergency (ER) | payer OTHER ==
[2019-01-12 11:27] VITALS: BP 132/90; PULSE 89; TEMP 98.1; BMI 36.8
[2019-01-12] MEDS ORDERED: ACETAMINOPHEN 500 MG TABLET (FP) PO ONE (12:31)
[2019-01-12] MEDS ORDERED: ACETAMINOPHEN 500 MG TABLET (FP) ONE (12:33)
--- NOTE | 2019-01-12 12:35 | PDOC ---
History of Present Illness - General Chief Complaint: Abscess Boil Stated Complaint: BACK PAIN Time Seen by Provider: 01/12/19 12:08 History Source: Patient Exam Limitations: No Limitations - History of Present Illness Initial Comments: 01/12/19 12:32 43 year old female with history of COPD, kidney failure presents with abscess to back x 3 days. Reports being seen prescribed antibiotics and pain medication but did not pick it up from the pharmacy. Patient states she returned today because of pain in area. Denies fever or chills Severity: Yes: mild Location: reports: other (back) Respiratory Risk Factors: reports: no cause identified Associated Symptoms: reports: denies symptoms Past History - Travel Traveled outside of the country in the last 30 days: No Close contact w/someone who was outside of country & ill: No - Past Medical History Allergies/Adverse Reactions: Allergies Allergy/AdvReac Type Severity Reaction Status Date / Time oxycodone [From Roxicodone] AdvReac Intermediate Vomiting Verified 01/10/19 16: 24 Home Medications: Ambulatory Orders Lactobacillus Acidophilus [Bacid -] 1 tab PO DAILY 30 Days #30 tab 10/05/18 Albuterol Sulfate Inhaler - [Ventolin HFA Inhaler -] 1 - 2 inh PO Q4H PRN #1 inhaler 10/16/18 Budesonide/Formeterol Fumarate [SYMBICORT 80/4.5mcg -] 2 puff IH BID inhaler Acetaminophen [Tylenol .Regular Strength -] 650 mg PO Q6H PRN tablet 12/07/18 Pantoprazole Sodium [Protonix -] 40 mg PO DAILY #30 tablet.ec 12/07/18 Cephalexin Monohydrate [Keflex -] 500 mg PO BID 7 Days #14 capsule 01/10/19 Nitrofurantoin Macrocrystal [Nitrofurantoin] 100 mg PO BID 7 Days #14 capsule Oxycodone HCl/Acetaminophen [Percocet 5-325 mg Tablet] 1 tab PO Q6H PRN #5 tablet MDD 3 01/10/19 Anemia: Yes Asthma: No Cancer: No Cardiac Disorders: No CVA: No COPD: Yes CHF: No Dementia: No Diabetes: No GI Disorders: No Disorders: Yes (Ileal Conduit, H/O KIDNEY STONES) HTN: No Hypercholesterolemia: No Kidney Stones: Yes (kidney failure) Liver Disease: No Seizures: No Thyroid Disease: No - Surgical History Abdominal Surgery: No Appendectomy: No Cardiac Surgery: No Cholecystectomy: No Lung Surgery: No Neurologic Surgery: No Orthopedic Surgery: No - Reproductive History (#): 0 Para: 0 - Immunization History Immunization Up to Date: Yes - Suicide/Smoking/Psychosocial Hx Smoking Status: No Smoking History: Current every day smoker Have you smoked in the past 12 months: Yes Number of Cigarettes Smoked Daily: 3 If you are a former smoker, when did you quit?: 1 Month ago Cigars Per Day: 0 Information on smoking cessation initiated: No 'Breaking Loose' booklet given: 09/03/18 Hx Alcohol Use: No Drug/Substance Use Hx: Yes Substance Use Type: Marijuana Hx Substance Use Treatment: No Review of Systems - Review of Systems Able to Perform ROS?: Yes Is the patient limited Polish proficient: No Constitutional: No: Chills, Fever HEENTM: No: Nose Congestion Respiratory: No: Cough, Orthopnea, Shortness of Breath Cardiac (ROS): No: Chest Pain, Edema ABD/GI: No: Abdominal Distended, Blood Streaked Bowels, Poor Appetite, Indigestion Musculoskeletal: Yes: Back Pain. No: Joint Pain, Neck Pain Integumentary: No: Bruising, Erythema, Flushing Neurological: No: Numbness, Paresthesia, Weakness Hematologic/Lymphatic: No: Blood Clots *Physical Exam - Vital Signs Last Vital Signs Temp Pulse Resp BP Pulse Ox 98.1 F 89 18 132/90 99 01/12/19 11:16 01/12/19 11:16 01/12/19 11:16 01/12/19 11:16 01/12/19 11:16 - Physical Exam General Appearance: Yes: Nourished, Appropriately Dressed HEENT: positive: EOMI, Pharynx Normal Neck: positive: Supple. 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, Fully Oriented, Alert Moderate Sedation - Procedure Monitoring Vital Signs: Procedure Monitoring Vital Signs Temperature 98.1 F 01/12/19 11:16 Pulse Rate 89 01/12/19 11:16 Respiratory Rate 18 01/12/19 11:16 Blood Pressure 132/90 01/12/19 11:16 O2 Sat by Pulse Oximetry (%) 99 01/12/19 11:16 Medical Decision Making - Medical Decision Making 01/12/19 12:49 43 year old female with history of COPD, kidney failure presents with abscess to back x 3 days Plan warm compress wound culture analgesia *DC/Admit/Observation/Transfer Diagnosis at time of Disposition: Abscess - Discharge Dispostion Disposition: HOME Condition at time of disposition: Good Decision to Admit order: No - Referrals Referrals: Vicki Guan DO [Primary Care Provider] - Call tomorrow (Call for follow up appointment ) - Patient Instructions Printed Discharge Instructions: DI for Incision and Drainage of a Skin Abscess Additional Instructions: Please continue to apply warm compress to area for 20 - 30 minutes 3 times daily take antibiotics as prescribed until completed Return to ed 01/16/2019 if area is not better. - Post Discharge Activity Forms/Work/School Notes: Parent(s) Back to Work Note
== END 2019-01-12 13:42 | disposition home or self-care (01) ==
LOC: JERFT 11:08 → JER 11:08 → JERFT 13:42
DX: L02.212 Cutaneous abscess of back [any part, except buttock and flank] (principal); N18.9 Chronic kidney disease, unspecified; J44.9 Chronic obstructive pulmonary disease, unspecified; Z96.89 Presence of other specified functional implants
CPT/HCPCS: 87070; 87186; 87205; 99281-25

== ENCOUNTER 2019-01-13 18:59 | Inpatient (IN) | payer OTHER ==
--- NOTE | 2019-01-13 20:35 | PDOC ---
History of Present Illness - General Chief Complaint: Abscess Boil Stated Complaint: BACK PAIN - History of Present Illness Initial Comments: 01/13/19 20:32 43 yo F with h/o COPD, CKD, hidradenitis suppuritiva, back abscess x 4 days, who p/w upper thoracic skin and wound check. Patient reports worsening upper back pain, at skin infection site, with absent drainage or discharge. Recently evaluated at [facility] ( 01/12/19) for suspected back abscess. Patient with attempted /unsuccessful needle aspiration. Wound culture with no growth to date. On Bactrim day 2. Denies h/o recurrent abscess. Patient denies RIOS, vision change, Palpitations, N/V, F,C, CP, SOB, urinary complaints, abdominal pain, diarrhea, constipation, lightheadedness, weakness, sensory changes. PMHx: as noted above ROS: as noted SHx: Denies Etoh, IVDA. tobacco use 2 cigarettes per day 6 years. Allergies:Oxycodone Past History - Past Medical History Allergies/Adverse Reactions: Allergies Allergy/AdvReac Type Severity Reaction Status Date / Time oxycodone [From Roxicodone] AdvReac Intermediate Vomiting Verified 01/14/19 00: 28 Home Medications: Ambulatory Orders Lactobacillus Acidophilus [Bacid -] 1 tab PO DAILY 30 Days #30 tab 10/05/18 Albuterol Sulfate Inhaler - [Ventolin HFA Inhaler -] 1 - 2 inh PO Q4H PRN #1 inhaler 10/16/18 Budesonide/Formeterol Fumarate [SYMBICORT 80/4.5mcg -] 2 puff IH BID inhaler Acetaminophen [Tylenol .Regular Strength -] 650 mg PO Q6H PRN tablet 12/07/18 Pantoprazole Sodium [Protonix -] 40 mg PO DAILY #30 tablet.ec 12/07/18 Cephalexin Monohydrate [Keflex -] 500 mg PO BID 7 Days #14 capsule 01/10/19 Nitrofurantoin Macrocrystal [Nitrofurantoin] 100 mg PO BID 7 Days #14 capsule Oxycodone HCl/Acetaminophen [Percocet 5-325 mg Tablet] 1 tab PO Q6H PRN #5 tablet MDD 3 01/10/19 Anemia: Yes Asthma: No Cancer: No Cardiac Disorders: No CVA: No COPD: Yes CHF: No Dementia: No Diabetes: No GI Disorders: No Disorders: Yes (Ileal Conduit, H/O KIDNEY STONES) HTN: No Hypercholesterolemia: No Kidney Stones: Yes (kidney failure) Liver Disease: No Seizures: No Thyroid Disease: No - Surgical History Abdominal Surgery: No Appendectomy: No Cardiac Surgery: No Cholecystectomy: No Lung Surgery: No Neurologic Surgery: No Orthopedic Surgery: No - Reproductive History (#): 0 Para: 0 - Immunization History Immunization Up to Date: Yes - Suicide/Smoking/Psychosocial Hx Smoking Status: No Smoking History: Former smoker Have you smoked in the past 12 months: No Number of Cigarettes Smoked Daily: 3 If you are a former smoker, when did you quit?: 1 Month ago Cigars Per Day: 0 Information on smoking cessation initiated: No 'Breaking Loose' booklet given: 09/03/18 Hx Alcohol Use: No Drug/Substance Use Hx: No Substance Use Type: Marijuana Hx Substance Use Treatment: No Review of Systems - Review of Systems Comments:: 01/13/19 20:33 GENERAL/CONSTITUTIONAL: No fever or chills. No weakness. HEAD, EYES, EARS, NOSE AND THROAT: No change in vision. No ear pain or discharge. No sore throat. CARDIOVASCULAR: No chest pain or shortness of breath RESPIRATORY: No cough, wheezing, or hemoptysis. GASTROINTESTINAL: No nausea, vomiting, diarrhea or constipation. GENITOURINARY: No dysuria, frequency, or change in urination. MUSCULOSKELETAL: No joint or muscle swelling or pain. No neck or back pain. SKIN: + Mid-thoracic back infection. NEUROLOGIC: No headache, vertigo, loss of consciousness, or change in strength/ sensation. ENDOCRINE: No increased thirst. No abnormal weight change HEMATOLOGIC/LYMPHATIC: No anemia, easy bleeding, or history of blood clots. ALLERGIC/IMMUNOLOGIC: No hives or skin allergy. *Physical Exam - Vital Signs Last Vital Signs Temp Pulse Resp BP Pulse Ox 98.5 F 102 H 20 132/90 95 01/13/19 19:05 01/13/19 19:05 01/13/19 19:05 01/13/19 19:05 01/13/19 19:05 - Physical Exam Comments: 01/13/19 20:34 GENERAL: Awake, alert, and fully oriented, in no acute distress HEAD: No signs of trauma, normocephalic, atraumatic EYES: PERRLA, EOMI, sclera anicteric, conjunctiva clear ENT: Auricles normal inspection, hearing grossly normal, nares patent, oropharynx clear without exudates. Moist mucosa NECK: Normal ROM, supple, no lymphadenopathy, JVD, or masses LUNGS: No distress, speaks full sentences, clear to auscultation bilaterally HEART: Regular rate and rhythm, normal S1 and S2, no murmurs, rubs or gallops, peripheral pulses normal and equal bilaterally. ABDOMEN: Soft, nontender, normoactive bowel sounds. No guarding, no rebound. No masses EXTREMITIES : Normal inspection, Normal range of motion, no edema. No clubbing or cyanosis. NEUROLOGICAL: Cranial nerves II through XII grossly intact. Normal speech, normal gait, no focal sensorimotor deficits SKIN: + Mid-upper thoracic, blanching, and superficial ertyhema ( 3x3 cm)/warmth /ttp, with 6 x 4 cm of deep firmness. + Central punctum/lesion, with absent drainage or discharge. Absent fluctuance, induration, lymphangitic streaking. Warm, Dry, normal turgor, no rashes or lesions noted Moderate Sedation - Procedure Monitoring Vital Signs: Procedure Monitoring Vital Signs Temperature 98.5 F 01/13/19 19:05 Pulse Rate 102 H 01/13/19 19:05 Respiratory Rate 20 01/13/19 19:05 Blood Pressure 132/90 01/13/19 19:05 O2 Sat by Pulse Oximetry (%) 95 01/13/19 19:05 ED Treatment Course - LABORATORY CBC & Chemistry Diagram: 01/13/19 21:30 01/14/19 01:27 Medical Decision Making - Medical Decision Making 01/13/19 21:00 43 yo F with h/o COPD, CKD, hidradenitis suppuritiva, back abscess x 4 days, who p/w upper thoracic skin and wound check. Patient reports worsening upper back pain. HR 102, vitals otherwise wnl, AF, A&Ox3. + Mid-upper thoracic, blanching, and right sided superficial ertyhema ( 3x3 cm)/warmth/ttp, with 6 x 4 cm of deep firmness. + Central punctum/lesion, with absent drainage or discharge. Absent fluctuance, induration, lymphangitic streaking. No evidence of systemic illness/toxicity. Denies N/V, F,C, CP, SOB, urinary complaints, abdominal pain, diarrhea, constipation, lightheadedness, weakness, sensory changes. No evidence of immunocompromised status, or SIRS criteria concerning for SEPSIS. ED Course: 01/14/19 01:21 WBC: 12.1 (7.8 on 01/10/18) Tylenol 650 mg Patient with continued pain Morphine 2 mg 01/14/19 02:05 Soft tissue: + Soft tissue thickening concerning for cellulitis. No fluid collection visualized. 01/14/19 02:05 Morphine 2 mg 01/14/19 02:21 Patient endorsed to med/surg Dr. Sweet Admitted to med/surg *DC/Admit/Observation/Transfer Diagnosis at time of Disposition: Cellulitis of back - Discharge Dispostion Condition at time of disposition: Stable Decision to Admit order: Yes - Referrals Referrals: Vicki Guan DO [Primary Care Provider] - - Patient Instructions Additional Instructions: Please return to the emergency department with any new or worsening symptoms or concerns. Please follow up with your primary care physician within 72 hours. - Post Discharge Activity - Attestations Physician Attestion: 01/13/19 20:34 I attest to the information provided in this note.
--- NOTE | 2019-01-13 20:36 | PDOC ---
Attending Attestation - HPI HPI: 01/13/19 21:08 The patient is a 43 year old female with a PMH of COPD and CKD who presents to the ED with an abscess on the back and worsening back pain secondary to this abscess for the past 3 days. Patient denies seeing any drainage from the abscess. Patient was seen at this ED for the back abscess yesterday but was unable to have it drained then. Patient was discharged on bactrim yesterday. Patient denies any fever, chills, nausea or vomiting. PMHx: as noted above ROS: as noted SHx: Denies Etoh, IVDA. tobacco use 2 cigarettes per day 6 years. Allergies:Oxycodone - Physicial Exam PE: 01/13/19 22:10 ADULT EXAM GENERAL: Awake, alert, and fully oriented, in no acute distress LUNGS: Breath sounds equal, clear to auscultation bilaterally. No wheezes, and no crackles HEART: Regular rate and rhythm, normal S1 and S2, no murmurs, rubs or gallops ABDOMEN: Soft, nontender, normoactive bowel sounds. No guarding, no rebound. No masses EXTREMITIES: Normal range of motion, no edema. BACK: (+) Abscess to the T3-T4 site NEUROLOGICAL: Cranial nerves II through XII grossly intact. Normal speech SKIN: Warm, Dry, normal turgor, no rashes or lesions noted. <Juana Alexander - Last Filed: 01/13/19 22:11> - Resident Resident Name: Con Palomo - ED Attending Attestation I have performed the following: I have examined & evaluated the patient, The case was reviewed & discussed with the resident, I agree w/resident's findings & plan - Medical Decision Making 01/13/19 22:17 Pt has left paraspinal area at the level of t2-T3 a 3cm abscess area with surrounding thickened skin. Pt was here a couple days back and a needle in the abscess removed no pus. Pt comes with pain. She is tearful . We will check basic labs and sed rate and she will have an official sonogram to visualize and abscess cavity. She will be be given a dose of vancomycin. 01/14/19 01:51 Patient Name: NATIVIDAD HURST THIS IS A PRELIMINARY REPORT FROM [facility] DATE OF SERVICE: 2019-01-14 01:11:50 IMAGES: 11 EXAM: SOFT TISSUE CHEST AND BACK US HISTORY: Soft tissue back abscess COMPARISON: None. FINDINGS: The area of concern was probed. There is soft tissue thickening which is most consistent with cellulitis. No fluid collections are identified. There is a small hyperechoic area within the cellulitis which could represent phlegmon but no discrete drainable abscess is seen. 01/14/19 02:22 Pt will be admitted for IV abx, as she failed outpatient bactrim <Yasmin Ellis - Last Filed: 01/14/19 02:23>
[2019-01-13] MEDS ORDERED: ACETAMINOPHEN 325 MG TABLET (FP) PO ONE (21:44)
[2019-01-13] MEDS ORDERED: ACETAMINOPHEN 325 MG TABLET (FP) ONE (21:45)
[2019-01-13 21:47] LABS: BASO % 0.5 % (0-2.0); EOS % 2.7 % (0-4.5); HEMATOCRIT 41.8 % (32.4-45.2); HEMOGLOBIN 14.7 GM/dL (10.7-15.3); LYMPH % 9.9 % (8-40); MCH 31.8 pg (25.7-33.7); MCHC 35.1 g/dl (32.0-36.0); MEAN CELL VOLUME 90.6 fl (80-96); MEAN PLT VOLUME 8.6 fl (7.5-11.1); MONO % 4.5 % (3.8-10.2); NEUT % 82.4 % (42.8-82.8); PLATELET COUNT 227 K/MM3 (134-434); RBC 4.61 M/mm3 (3.60-5.2); RDW 14.5 % (11.6-15.6); WHITE BLOOD COUNT 12.1 K/mm3 (4.0-10.0)
[2019-01-13] MEDS ORDERED: morphine CARPU-JECT 2 MG/1 ML DISP.SYRIN IVPUSH ONE ×2 (22:12→22:59)
[2019-01-13] MEDS ORDERED: VANCOMYCIN 1,000 MG in DEXTROSE 5%-WATER - 250 ML IVPB ONE (22:12)
[2019-01-13 23:02] LABS: INR 1.12 (0.83-1.09); PROTHROMBIN TIME (PATIENT) 13.2 SEC (9.7-13.0)
[2019-01-13] MEDS ORDERED: VANCOMYCIN 1 GRAM (PRE-DOCKED) 1,000 MG/250 ML BAG IVPB ONE (23:08)
[2019-01-13] MEDS ORDERED: MORPHINE SULFATE 2 MG/ML VIAL ONE (23:08)
[2019-01-14] MEDS ORDERED: MORPHINE SULFATE 2 MG/ML VIAL ONE ×3 (01:30→14:35)
[2019-01-14 02:12] LABS: ALBUMIN 3.1 g/dl (3.4-5.0); ALK PHOS 84 U/L (45-117); ANION GAP 6 MMOL/L (8-16); BILIRUBIN,TOTAL 0.5 mg/dL (0.2-1); BLOOD UREA NITROGEN 21 mg/dL (7-18); CALCIUM 8.7 mg/dL (8.5-10.1); CHLORIDE 110 mmol/L (98-107); CO2 23 mmol/L (21-32); CREATININE 1.9 mg/dL (0.55-1.3); GLUCOSE,RANDOM 90 mg/dL (74-106); SGOT/AST 18 U/L (15-37); SGPT/ALT 15 U/L (13-61); SODIUM 139 mmol/L (136-145); TOT PROT 7.1 g/dl (6.4-8.2)
[2019-01-14] MEDS ORDERED: ACETAMINOPHEN 325 MG TABLET (FP) PO PRN (03:05)
[2019-01-14] MEDS ORDERED: oxyCODONE HCL 5 MG TABLET PO PRN (03:05)
[2019-01-14] MEDS ORDERED: ALBUTEROL SO4 8 GM HFA INHALER IH PRN (03:10)
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
[2019-01-14] MEDS ORDERED: CLINDAMYCIN 600MG PREMIX IVPB 600 MG/50 ML BAG IVPB ONE ×3 (04:13→14:14)
[2019-01-14] MEDS ORDERED: LIDOCAINE 5% TOPICAL PATCH TP ONE (04:19)
[2019-01-14] MEDS ORDERED: HYDROmorphone HCL CARPU-JECT 2 MG/1 ML DISP.SYRIN IVPUSH ONE (04:33)
[2019-01-14] MEDS ORDERED: LIDOCAINE 5% TOPICAL PATCH ONE (04:33)
[2019-01-14] MEDS ORDERED: HYDROmorphone HCl 2 MG/ML VIAL ONE (04:36)
[2019-01-14] MEDS: LACTATED RINGERS SOLUTION 1,000 ML IV SCH (04:40)
[2019-01-14] MEDS ORDERED: HEPARIN NA (PORCINE) 5,000 UNITS/ML 1ML VIAL ONE (04:52)
[2019-01-14] MEDS: HEPARIN NA (PORCINE) 5,000 UNITS/ML 1ML VIAL SQ SCH ×3 (05:53→23:13)
[2019-01-14] MEDS: CLINDAMYCIN 600MG PREMIX IVPB 600 MG/50 ML BAG IVPB SCH ×4 (05:53→22:45)
[2019-01-14] MEDS ORDERED: ACETAMINOPHEN 325 MG TABLET (FP) ONE (09:07)
[2019-01-14] MEDS ORDERED: PANTOPRAZOLE 40 MG TABLET (FP) ONE (09:35)
[2019-01-14] MEDS: BUDESONIDE/FORMETEROL FUMARATE 80/4.5 mcg INHALER IH SCH ×2 (10:10→23:15)
[2019-01-14] MEDS: LACTOBACILLUS ACIDOPHILUS 1 TABLET PO SCH (10:10)
[2019-01-14] MEDS: PANTOPRAZOLE 40 MG TABLET (FP) PO SCH (10:10)
[2019-01-14] MEDS ORDERED: MORPHINE SULFATE 2 MG/ML VIAL IVPUSH ONE ×2 (12:28→14:16)
--- NOTE | 2019-01-14 14:29 | PN ---
Progress Note, Physician Chief Complaint: per patient last week she noticed two bumps under her left armpit she went to her PMD got abx nad cream then she noticed that she had right arm pit two lesion and then 3 days ago lesion on her back which started growing larger and bursted , chills at home patient took course of keflex and nitrofurantoin at home - Current Medication List Current Medications: Active Medications Acetaminophen (Tylenol -) 650 mg PO Q4H PRN PRN Reason: PAIN LEVEL 1-5 Albuterol Sulfate (Ventolin Hfa Inhaler -) 2 puff IH Q4H PRN PRN Reason: COUGH Budesonide/Formoterol Fumarate (Symbicort 80/4.5mcg -) 2 puff IH BID [facility] Last Admin: 01/14/19 10:10 Dose: 2 puff Heparin Sodium (Porcine) (Heparin -) 5,000 unit SQ BID [facility] Clindamycin Phosphate (Cleocin 600 Mg Premix Ivpb -) 600 mg in 50 mls @ 100 mls /hr IVPB Q6H-IV PATRICK; Protocol Last Admin: 01/14/19 14:22 Dose: 100 mls/hr Lactated Ringer's (Lactated Ringers Solution) 1,000 mls @ 75 mls/hr IV ASDIR [facility] Last Admin: 01/14/19 04:40 Dose: 75 mls/hr Lactobacillus Acidophilus (Bacid -) 1 tab PO DAILY [facility] Last Admin: 01/14/19 10:10 Dose: 1 tab Miscellaneous (Lidoderm Patch Removal) 1 each MC DAILY@2200 [facility] Morphine Sulfate (Morphine Injection -) 2 mg IVPUSH ONCE ONE Stop: 01/14/19 14:17 Morphine Sulfate (Morphine Injection -) 4 mg IVPUSH Q4H PRN PRN Reason: PAIN LEVEL 7 - 10 Ondansetron HCl (Zofran Injection) 4 mg IVPUSH Q6H PRN PRN Reason: NAUSEA AND/OR VOMITING Pantoprazole Sodium (Protonix -) 40 mg PO DAILY [facility] Last Admin: 01/14/19 10:10 Dose: 40 mg - Objective Vital Signs: Vital Signs Temperature 98.7 F 01/14/19 07:40 Pulse Rate 98 H 01/14/19 07:40 Respiratory Rate 18 01/14/19 07:40 Blood Pressure 124/71 01/14/19 07:40 O2 Sat by Pulse Oximetry (%) 95 01/14/19 09:00 Constitutional: Yes: Mild Distress Cardiovascular: Yes: Regular Rate and Rhythm, S1, S2 Respiratory: Yes: CTA Bilaterally Gastrointestinal: Yes: Normal Bowel Sounds, Soft Edema: No Wound/Incision: Yes: Other (mid back open woud draining yellowish discharge with induration axillary region firm indurated lesion) Labs: CBC, BMP 01/13/19 21:30 01/14/19 01:27 INR, PTT INR 1.12 (0.83-1.09) H 01/13/19 22:02 Problem List - Problems (1) Cellulitis of back Assessment/Plan: clindaymcyin vancomycin ID and surgical consult pain control morphine tylenol not helping ivf gi /dvt ppx zofran for nausea Code(s): L03.312 - CELLULITIS OF BACK [ANY PART EXCEPT BUTTOCK] (2) Axillary hidradenitis suppurativa Assessment/Plan: abx Code(s): L73.2 - HIDRADENITIS SUPPURATIVA (3) CKD (chronic kidney disease) Assessment/Plan: monitor renal function dr norman Code(s): N18.9 - CHRONIC KIDNEY DISEASE, UNSPECIFIED Qualifiers: Chronic kidney disease stage: unspecified stage Qualified Code(s): N18.9 - Chronic kidney disease, unspecified
[2019-01-14] MEDS ORDERED: ONDANSETRON 4 MG/2 ML VIAL ONE (14:41)
[2019-01-14] MEDS: ONDANSETRON 4 MG/2 ML VIAL IVPUSH PRN (14:43)
[2019-01-14] MEDS ORDERED: VANCOMYCIN 1 GM in D5W (PRE-DOCKED) 1,000 MG/250 ML IVPB ONE (16:32)
--- NOTE | 2019-01-14 16:42 | PN ---
Progress Note (short form) - Note Progress Note: ID consult dictated imp/reccd enlarging back abscess bilateral axillary hidradenitis UTI CKD 43 yo female with urostomy 2006, seen in ED 01/10 with flank pain and bilateral hidradenitis, discharged on keflex and macrobid-didnot take she returned on 01/12 with enlarging back abscess, culture sent and she was told to take the keflex she returns with increasing back pain, chills also notes suprapubic pain wound culture of back with MRSA urine culture with ecoli esbl and enterococcus blood cultures ordered stat add vancomycin and follow levels continue clindamycin for now add ertapenem given urinary symptoms surgical evaluation pending contact isolation d/w dr valladares Problem List - Problems (1) Abscess Code(s): L02.91 - CUTANEOUS ABSCESS, UNSPECIFIED (2) UTI (urinary tract infection) Code(s): N39.0 - URINARY TRACT INFECTION, SITE NOT SPECIFIED Qualifiers: Urinary tract infection type: acute cystitis Hematuria presence: without hematuria Qualified Code(s): N30.00 - Acute cystitis without hematuria (3) CKD (chronic kidney disease) Code(s): N18.9 - CHRONIC KIDNEY DISEASE, UNSPECIFIED Qualifiers: Chronic kidney disease stage: unspecified stage Qualified Code(s): N18.9 - Chronic kidney disease, unspecified (4) Axillary hidradenitis suppurativa Code(s): L73.2 - HIDRADENITIS SUPPURATIVA
[2019-01-14] MEDS ORDERED: VANCOMYCIN 1 GRAM (PRE-DOCKED) 1,000 MG/250 ML BAG IVPB ONE (17:46)
--- NOTE | 2019-01-14 17:52 | CONSULT ---
Consult Consult Specialty:: Nephrology Reason for Consultation:: ckd - History of Present Illness Chief Complaint: back pain History of Present Illness: Pt is a 43 year old female with pmhx of CKD, COPD, and ileal conduit who presents to the ER with back pain. She is being admitted for a suspected abscess. I was called to evaluate her as she was found to have elevated creatinine. She has an ileal conduit. She feels that the urine is clear. She denies nsaid use. She was given bactrim as outpt for the infection. - History Source History Provided By: Patient - Past Medical History Gastrointestinal: Yes: Hiatal Hernia, Other (ileal conduit; umbilical incisional hernia) Hepatobiliary: Yes: Cholelithiasis Renal/: Yes: Renal Inusuff (s/p urinary diversion, bilateral nephrostomies converted to ileal conduit ~2006 [facility]), Renal Calculi, UTI ...LMP: 11/26/18 Psych: Yes: Anxiety, Depression Endocrine: Yes: Other (prior abnormal TFTs) - Past Surgical History Past Surgical History: Yes: Cystectomy, Ileal Conduit - Alcohol/Substance Use Hx Alcohol Use: No History of Substance Use: reports: Marijuana (daily) Date of Last Use: 05/09/18 - Smoking History Smoking history: Former smoker Have you smoked in the past 12 months: No Aproximately how many cigarettes per day: 3 If you are a former smoker, when did you quit?: 1 Month ago - Social History Usual Living Arrangement: Alone ADL: Independent History of Recent Travel: No Home Medications - Allergies Allergies/Adverse Reactions: Allergies Allergy/AdvReac Type Severity Reaction Status Date / Time oxycodone [From Roxicodone] AdvReac Intermediate Vomiting Verified 01/14/19 00: 28 - Home Medications Home Medications: Ambulatory Orders Lactobacillus Acidophilus [Bacid -] 1 tab PO DAILY 30 Days #30 tab 10/05/18 Albuterol Sulfate Inhaler - [Ventolin HFA Inhaler -] 1 - 2 inh PO Q4H PRN #1 inhaler 10/16/18 Budesonide/Formeterol Fumarate [SYMBICORT 80/4.5mcg -] 2 puff IH BID inhaler Acetaminophen [Tylenol .Regular Strength -] 650 mg PO Q6H PRN tablet 12/07/18 Pantoprazole Sodium [Protonix -] 40 mg PO DAILY #30 tablet.ec 12/07/18 Cephalexin Monohydrate [Keflex -] 500 mg PO BID 7 Days #14 capsule 01/10/19 Nitrofurantoin Macrocrystal [Nitrofurantoin] 100 mg PO BID 7 Days #14 capsule Oxycodone HCl/Acetaminophen [Percocet 5-325 mg Tablet] 1 tab PO Q6H PRN #5 tablet MDD 3 01/10/19 Family Disease History - Family Disease History Family Disease History: CA: Mother, Respiratory: Mother Review of Systems - Review of Systems Constitutional: reports: Chills, Malaise Eyes: reports: No Symptoms HENT: reports: No Symptoms Neck: reports: No Symptoms Cardiovascular: reports: No Symptoms Respiratory: reports: No Symptoms Genitourinary: reports: No Symptoms Integumentary: reports: Erythema, Other (likely back abscess) Neurological: reports: No Symptoms Endocrine: reports: No Symptoms Psychiatric: reports: No Symptoms Physical Exam Vital Signs: Vital Signs Temperature 98.6 F 01/14/19 14:00 Pulse Rate 85 01/14/19 14:00 Respiratory Rate 18 01/14/19 14:00 Blood Pressure 137/79 01/14/19 14:00 O2 Sat by Pulse Oximetry (%) 95 01/14/19 09:00 Constitutional: Yes: Calm Eyes: Yes: Conjunctiva Clear HENT: Yes: Atraumatic Cardiovascular: Yes: S1, S2 Respiratory: Yes: CTA Bilaterally Gastrointestinal: Yes: Soft Renal/: Yes: Other (ileal conduit) Musculoskeletal: Yes: WNL Edema: No Integumentary: Yes: Erythema, Other (back abscess) Wound/Incision: Yes: Open to air Neurological: Yes: Oriented Labs: CBC, BMP 01/13/19 21:30 01/14/19 01:27 Laboratory Tests 12/06/18 12/07/18 01/10/19 06:00 06:00 17:59 WBC Hgb Sodium Potassium BUN Creatinine 2.1 H 2.0 H 2.2 H 01/13/19 01/14/19 21:30 01:27 WBC 12.1 H Hgb 14.7 Sodium 139 Potassium 4.0 BUN 21 H Creatinine 1.9 H Problem List - Problems (1) Cellulitis of back Code(s): L03.312 - CELLULITIS OF BACK [ANY PART EXCEPT BUTTOCK] (2) CKD (chronic kidney disease) Code(s): N18.9 - CHRONIC KIDNEY DISEASE, UNSPECIFIED Qualifiers: Chronic kidney disease stage: unspecified stage Qualified Code(s): N18.9 - Chronic kidney disease, unspecified Assessment/Plan Current Medications Generic Name Dose Route Start Last Admin Trade Name Freq PRN Reason Stop Dose Admin Acetaminophen 650 mg 01/14/19 03:05 Tylenol - PO Q4H PRN PAIN LEVEL 1-5 Albuterol Sulfate 2 puff 01/14/19 03:10 Ventolin Hfa Inhaler - IH Q4H PRN COUGH Budesonide/Formoterol Fumarate 2 puff 01/14/19 10:00 01/14/19 10:10 Symbicort 80/4.5mcg - IH 2 puff BID PATRICK Administration Heparin Sodium (Porcine) 5,000 unit 01/14/19 22:00 Heparin - SQ BID PATRICK Clindamycin Phosphate 600 mg in 50 mls @ 100 mls/hr 01/14/19 03:15 01/14/19 14:22 Cleocin 600 Mg Premix Ivpb - IVPB 100 mls/hr Q6H-IV PATRICK Administration Protocol Lactated Ringer's 1,000 mls @ 75 mls/hr 01/14/19 03:15 01/14/19 04:40 Lactated Ringers Solution IV 75 mls/hr ASDIR PATRICK Administration Ertapenem 1 gm/ Sodium 50 mls @ 100 mls/hr 01/14/19 17:00 Chloride IVPB DAILY PATRICK Lactobacillus Acidophilus 1 tab 01/14/19 10:00 01/14/19 10:10 Bacid - PO 1 tab DAILY PATRICK Administration Miscellaneous 1 each 01/14/19 22:00 Lidoderm Patch Removal MC DAILY@2200 PATRICK Morphine Sulfate 4 mg 01/14/19 14:16 Morphine Sulfate IVPUSH Q4H PRN PAIN LEVEL 7 - 10 Ondansetron HCl 4 mg 01/14/19 14:22 01/14/19 14:43 Zofran Injection IVPUSH 4 mg Q6H PRN Administration NAUSEA AND/OR VOMITING Pantoprazole Sodium 40 mg 01/14/19 10:00 01/14/19 10:10 Protonix - PO 40 mg DAILY PATRICK Administration Impression 1. CKD 2. hx hydronephrosis 3. hx uti 4. ovarian cysts 5. anemia 6. adnexal cyst 7. nephrolithiasis 8. cellulitis/abscess Plan - renal function stable - cont fluids - renal dose meds - follow cultures - avoid nsaids - avoid nephrotoxins
[2019-01-14 18:08] LABS: BASO % 0.5 % (0-2.0); EOS % 2.2 % (0-4.5); HEMATOCRIT 41.1 % (32.4-45.2); HEMOGLOBIN 14.3 GM/dL (10.7-15.3); LYMPH % 11.2 % (8-40); MCH 31.3 pg (25.7-33.7); MCHC 34.7 g/dl (32.0-36.0); MEAN CELL VOLUME 90.2 fl (80-96); MEAN PLT VOLUME 8.8 fl (7.5-11.1); MONO % 5.3 % (3.8-10.2); NEUT % 80.8 % (42.8-82.8); PLATELET COUNT 222 K/MM3 (134-434); RBC 4.55 M/mm3 (3.60-5.2); RDW 14.3 % (11.6-15.6); WHITE BLOOD COUNT 12.8 K/mm3 (4.0-10.0)
--- NOTE | 2019-01-14 18:30 | CONS ---
DATE OF CONSULTATION: DATE OF DICTATION: 01/14/2019 INFECTIOUS DISEASE CONSULTATION HISTORY OF PRESENT ILLNESS: This is a 43-year-old woman with a history of 3 recent admissions to the emergency room. She was evaluated last month for a UTI and discharged on Augmentin. Since that time, she presented on the complaining of abdominal pain and urinary symptoms and suprapubic discomfort. She had a CAT scan that was unchanged from prior. She was discharged on Keflex and Macrobid, which she did not take. She returned 2 days later complaining of a 3-day history of a painful sore on her back. On the as well she had complained of bilateral axillary swelling which was noted to be hydradenitis. On the , she was noted to have a painful area of induration on her back. Warm compresses were placed. They attempted to do a needle aspiration that was unsuccessful. She was discharged to start the Keflex and Macrobid which she had not picked up as of the . She returned on the complaining of worsening pain and she has been admitted for further evaluation. The culture from the is growing MRSA. She is complaining of chills, which she reports she has been having at home and severe pain. She as well states she knows she has urinary tract infection as she has suprapubic discomfort. She had an ultrasound of her back that shows cellulitis without a discrete abscess. She has a thoracic spine x-ray that is unremarkable. I am asked to see her for antibiotic management. She received a dose of vancomycin and clindamycin in the emergency room and is currently on vancomycin. PAST MEDICAL HISTORY: Notable for CKD with renal stones. She has bilateral hydronephrosis. She has an ileal conduit which was placed in 2006 at [facility]. She has a history of COPD as well. She has a history of anxiety and depression, and her surgical history is notable for the ileal conduit. SOCIAL HISTORY: She lives with her . She uses marijuana. Former smoker. . There is no history of MRSA infection in the past. They have no children. She does not work. ALLERGIES: She has no known drug allergies. MEDICATION: Her medications as an outpatient include Keflex and Macrobid and she takes Protonix, Percocet, Bacid, Symbicort, and Ventolin inhaler. REVIEW OF SYSTEMS: She notes the suprapubic discomfort which she describes as classic urinary tract infection symptoms. PHYSICAL EXAMINATION: GENERAL: She is very tearful, complaining of severe back pain. VITAL SIGNS: Temperature 98.6, pulse 85, blood pressure 137/79, respiratory rate 18, saturating 95% on room air. HEENT: Normocephalic. Eyes are anicteric. NECK: Supple. BACK: Her back on her thoracic spine, she has about an 8 x 8 cm area of induration that is very painful to touch with a central pustule. She has in both her axilla, she has small nodules that are very tender to touch. None are fluctuant. HEART: Regular rate and rhythm. LUNGS: Clear to auscultation. ABDOMEN: She has an ileal conduit, below which she complains of discomfort when palpated. EXTREMITIES: Without edema. LABORATORY: White count is 12, hemoglobin 14.7, platelets 227. BUN and creatinine are 21 and 1.9, and urinalysis has 2+ leukocytes. Cultures are notable for the MRSA wound culture from the 23rd of her back, and the urostomy culture with E. coli ESBL and Enterococcus faecalis. IMPRESSION: In summary, this is a 43-year-old woman with an enlarged back abscess consistent with methicillin-resistant Staphylococcus aureus, bilateral axillary hydradenitis, urinary tract infection and chronic kidney disease. I would suggest we obtain blood cultures stat, add vancomycin and follow levels. Given her chronic kidney disease, would continue clindamycin for now until we make sure vancomycin levels are therapeutic and that she is not bacteremic. Would add ertapenem given the urinary symptoms. Surgical evaluation is pending, and would recommend contact isolation, which the patient was notified about. The is at the bedside. The case is discussed with him as well as case is discussed with . ARMANDO ROGERS M.D. [facility]ENN/[id number]
[2019-01-14] MEDS ORDERED: morphine SULFATE 4 MG/ML VIAL ONE (18:47)
[2019-01-14 18:50] LABS: ALBUMIN 3.2 g/dl (3.4-5.0); ALK PHOS 89 U/L (45-117); ANION GAP 5 MMOL/L (8-16); BILIRUBIN,TOTAL 0.6 mg/dL (0.2-1); BLOOD UREA NITROGEN 16 mg/dL (7-18); CALCIUM 8.8 mg/dL (8.5-10.1); CHLORIDE 107 mmol/L (98-107); CO2 24 mmol/L (21-32); CREATININE 1.9 mg/dL (0.55-1.3); GLUCOSE,RANDOM 85 mg/dL (74-106); POTASSIUM 4.1 mmol/L (3.5-5.1); SGOT/AST 16 U/L (15-37); SGPT/ALT 14 U/L (13-61); SODIUM 136 mmol/L (136-145); TOT PROT 7.3 g/dl (6.4-8.2)
[2019-01-14] MEDS: morphine SULFATE 4 MG/ML VIAL IVPUSH PRN ×2 (18:51→22:45)
[2019-01-14 18:57] LABS: ERYTHROCYTE SEDIMENTATION RATE 75 mm/hr (0-20)
[2019-01-14 20:58] VITALS: BMI 36.8
[2019-01-14] MEDS ORDERED: LIDOCAINE PATCH REMOVAL MC SCH (22:00)
[2019-01-14] MEDS: ERTAPENEM SODIUM 1 GM in SODIUM CHLORIDE 50 ML IVPB SCH (23:14)
--- NOTE | 2019-01-15 00:44 | CONSULT ---
Consult Consult Specialty:: General Surgery Referred by:: Dr. Weinberg Reason for Consultation:: back abscess - History of Present Illness Chief Complaint: back lesion - painful, swollen, pink, raised History of Present Illness: 43yo F with multiple medical problems including CKD s/p perc nephrostomies converted to ileal conduit 2006, hidradenitis with chronic lesions in bilateral axillae, admitted to medicine with a pustule on her back starting about 4 days ago, progressing to increased pain/tenderness, local swelling/induration, erythema, pink and yellow necrotic central area, no active drainage. 01/12 in ER , aspiration was attempted, but only culture obtained, growing MRSA. She had been Rx antibiotics, but not started initially, then returned with more pain and was admitted for IV antibiotics. She is on Vanco, Clinda, Ertapenem per ID, also with UTI. US reportedly showed no discrete fluid collection beneath lesion. Surgery was asked to evaluate. She is seen and examined in bed, resting comfortably on her side. She reports pain at the site, and is exquisitely tender. She also notes a couple of nodules under her arms. Also has lower abdominal pain related to her UTI, near the conduit, and had some n/v previously, also thought to be related to that. Denies other lesions besides those. - History Source History Provided By: Patient, Medical Record Limitations to Obtaining History: No Limitations - Past Medical History Gastrointestinal: Yes: Hiatal Hernia, Other (umbilical incisional hernia) Hepatobiliary: Yes: Cholelithiasis Renal/: Yes: Renal Inusuff (s/p urinary diversion, bilateral nephrostomies converted to ileal conduit ~2006 [facility]), Renal Calculi, UTI, Other ( ileal conduit) ...LMP: 01/08/19 ...: No Infectious Disease: Yes: MRSA, Other (ESBL) Psych: Yes: Anxiety, Depression Endocrine: Yes: Other (prior abnormal TFTs) Dermatology: Yes: Other (hidradenitis) - Past Surgical History Past Surgical History: Yes: Cystectomy, Ileal Conduit Additional Surgical History: perc nephrostomies in past - Alcohol/Substance Use Hx Alcohol Use: No History of Substance Use: reports: Marijuana (daily) Date of Last Use: 05/09/18 - Smoking History Smoking history: Current every day smoker Have you smoked in the past 12 months: Yes Aproximately how many cigarettes per day: 3 - Social History Usual Living Arrangement: Alone ADL: Independent History of Recent Travel: No Home Medications - Allergies Allergies/Adverse Reactions: Allergies Allergy/AdvReac Type Severity Reaction Status Date / Time oxycodone [From Roxicodone] AdvReac Intermediate Vomiting Verified 01/14/19 00: 28 - Home Medications Home Medications: Ambulatory Orders Lactobacillus Acidophilus [Bacid -] 1 tab PO DAILY 30 Days #30 tab 10/05/18 Albuterol Sulfate Inhaler - [Ventolin HFA Inhaler -] 1 - 2 inh PO Q4H PRN #1 inhaler 10/16/18 Budesonide/Formeterol Fumarate [SYMBICORT 80/4.5mcg -] 2 puff IH BID inhaler Acetaminophen [Tylenol .Regular Strength -] 650 mg PO Q6H PRN tablet 12/07/18 Pantoprazole Sodium [Protonix -] 40 mg PO DAILY #30 tablet.ec 12/07/18 Cephalexin Monohydrate [Keflex -] 500 mg PO BID 7 Days #14 capsule 01/10/19 Nitrofurantoin Macrocrystal [Nitrofurantoin] 100 mg PO BID 7 Days #14 capsule Oxycodone HCl/Acetaminophen [Percocet 5-325 mg Tablet] 1 tab PO Q6H PRN #5 tablet MDD 3 01/10/19 Home Medications (free text): pt states she was on bactrim at home Family Disease History - Family Disease History Family Disease History: CA: Mother, Respiratory: Mother Review of Systems - Review of Systems Constitutional: reports: Chills, Fever Eyes: denies: Blurred Vision HENT: denies: Difficult Swallowing, Throat Pain Neck: denies: Swollen Glands, Tenderness Cardiovascular: denies: Chest Pain, Palpitations Respiratory: denies: Cough, SOB Gastrointestinal: reports: Abdominal Pain (lower/near ileal conduit), Diarrhea. denies: Constipation, Nausea, Vomiting Genitourinary: denies: Flank Pain, Hematuria Musculoskeletal: reports: Back Pain (with hpi). denies: Joint Pain, Muscle Pain Integumentary: reports: Lesions (axillary), Lump (upper mid-back with hpi) Neurological: denies: Dizziness, Headache Physical Exam Vital Signs: Vital Signs Temperature 98 F 01/14/19 20:30 Pulse Rate 81 01/14/19 20:30 Respiratory Rate 20 01/14/19 20:30 Blood Pressure 132/71 01/14/19 20:30 O2 Sat by Pulse Oximetry (%) 96 01/14/19 20:30 Constitutional: Yes: Well Nourished, No Distress, Calm Eyes: Yes: Conjunctiva Clear, EOM Intact HENT: Yes: Atraumatic, Normocephalic Neck: Yes: Supple, Trachea Midline Cardiovascular: Yes: Regular Rate and Rhythm Respiratory: Yes: Regular, Wheezes (mild, L > R, per pt, she is due for neb tx) Gastrointestinal: Yes: Soft, Tenderness (lower abdomen near ileal conduit), Other (ileal conduit with appliance intact). No: Tenderness, Rebound ...Rectal Exam: Yes: Deferred Renal/: Yes: Other (ileal conduit with bag). No: CVA Tenderness - Left, CVA Tenderness - Right, Hematuria Musculoskeletal: Yes: Back Pain (tender over carbuncle upper mid-back and surrounding). No: Joint Swelling Extremities: No: Cool, Cyanosis Edema: No Peripheral Pulses WNL: Yes Integumentary: Yes: Body Piercing (nipples, right ear bar), Erythema (local around back lesion), Tattoos, Other (axillae with small nodular areas and chronic tracts from hidradenitis, no active drainage, one mildly tender nodule on right, nothing drainable). No: Jaundice Wound/Incision: Yes: Open to air, Reddened. No: Draining Neurological: Yes: Alert, Oriented Psychiatric: Yes: Alert, Oriented Labs: CBC, BMP 01/14/19 18:00 01/14/19 18:00 CMP Sodium 136 mmol/L (136-145) 01/14/19 18:00 Potassium 4.1 mmol/L (3.5-5.1) 01/14/19 18:00 Chloride 107 mmol/L (98-107) 01/14/19 18:00 Carbon Dioxide 24 mmol/L (21-32) 01/14/19 18:00 Anion Gap 5 MMOL/L (8-16) L 01/14/19 18:00 BUN 16 mg/dL (7-18) 01/14/19 18:00 Creatinine 1.9 mg/dL (0.55-1.3) H 01/14/19 18:00 Creat Clearance w eGFR 28.72 (>60) 01/14/19 18:00 Random Glucose 85 mg/dL (74-106) 01/14/19 18:00 Calcium 8.8 mg/dL (8.5-10.1) 01/14/19 18:00 Total Bilirubin 0.6 mg/dL (0.2-1) 01/14/19 18:00 AST 16 U/L (15-37) 01/14/19 18:00 ALT 14 U/L (13-61) 01/14/19 18:00 Alkaline Phosphatase 89 U/L (45-117) 01/14/19 18:00 Total Protein 7.3 g/dl (6.4-8.2) 01/14/19 18:00 Albumin 3.2 g/dl (3.4-5.0) L 01/14/19 18:00 Serum , Qual Negative 01/14/19 01:27 INR, PTT INR 1.12 (0.83-1.09) H 01/13/19 22:02 wbc elevated cx from with MRSA Imaging - Results X-ray: Report Reviewed, Image Reviewed (thoracic spine reviewed, no FB under skin, no acute findings) Ultrasound: Report Reviewed, Image Reviewed (images noted - no discrete abscess but small pockets consistent with carbuncle) Problem List - Problems (1) Carbuncle of back Assessment/Plan: appearance consistent with MRSA carbuncle lesion extremely tender, some surrounding cellulitis would likely benefit from I&D/local debridement and packing pt unlikely to tolerate under local anesthetic at bedside NPO except meds for now will see if can do in OR in am pt will need wound care/daily packing changes arranged for VNS on discharge details to follow antibiotics per ID pain meds prn Discussed with patient risks, benefits and alternatives of local debridement of back abscess, including but not limited to bleeding, infection, recurrent infection; alternatives include antibiotics, delayed or no surgery - risks of this include worsening/spread of infection, sepsis, need for more extensive procedure. Patient agreeable to procedure - will take to OR for above. Informed consent signed for same. Code(s): L02.232 - CARBUNCLE OF BACK [ANY PART, EXCEPT BUTTOCK] (2) Lower abdominal pain Code(s): R10.30 - LOWER ABDOMINAL PAIN, UNSPECIFIED (3) Axillary hidradenitis suppurativa Assessment/Plan: axillary lesions not drainable at this time antibiotics per ID should improve/resolve with abx over time Code(s): L73.2 - HIDRADENITIS SUPPURATIVA (4) Urinary tract infection Assessment/Plan: abx per ID, mgmt per primary team Code(s): N39.0 - URINARY TRACT INFECTION, SITE NOT SPECIFIED Qualifiers: Urinary tract infection type: site unspecified Hematuria presence: without hematuria Qualified Code(s): N39.0 - Urinary tract infection, site not specified (6) CKD (chronic kidney disease) Code(s): N18.9 - CHRONIC KIDNEY DISEASE, UNSPECIFIED Qualifiers: Chronic kidney disease stage: stage 3 (moderate) Qualified Code(s): N18.3 - Chronic kidney disease, stage 3 (moderate) (7) Smokes cigarettes Assessment/Plan: counseled regarding cessation, especially as it relates to wound healing pt receptive and willing to quit Code(s): F17.210 - NICOTINE DEPENDENCE, CIGARETTES, UNCOMPLICATED (8) Marijuana abuse, continuous Code(s): F12.10 - CANNABIS ABUSE, UNCOMPLICATED
[2019-01-15] MEDS: CLINDAMYCIN 600MG PREMIX IVPB 600 MG/50 ML BAG IVPB SCH ×4 (03:12→21:33)
[2019-01-15] MEDS: LACTATED RINGERS SOLUTION 1,000 ML IV SCH ×3 (04:45→18:00)
[2019-01-15 07:02] LABS: BASO % 0.3 % (0-2.0); EOS % 2.8 % (0-4.5); HEMATOCRIT 38.3 % (32.4-45.2); HEMOGLOBIN 13.5 GM/dL (10.7-15.3); LYMPH % 9.7 % (8-40); MCH 31.2 pg (25.7-33.7); MCHC 35.3 g/dl (32.0-36.0); MEAN CELL VOLUME 88.3 fl (80-96); MEAN PLT VOLUME 8.9 fl (7.5-11.1); MONO % 6.7 % (3.8-10.2); NEUT % 80.5 % (42.8-82.8); PLATELET COUNT 211 K/MM3 (134-434); RBC 4.34 M/mm3 (3.60-5.2); RDW 14.4 % (11.6-15.6)
[2019-01-15 07:33] LABS: ANION GAP 6 MMOL/L (8-16); BLOOD UREA NITROGEN 15 mg/dL (7-18); CALCIUM 8.5 mg/dL (8.5-10.1); CHLORIDE 104 mmol/L (98-107); CO2 26 mmol/L (21-32); CREATININE 1.9 mg/dL (0.55-1.3); GLUCOSE,RANDOM 88 mg/dL (74-106); MAGNESIUM 1.9 mg/dL (1.8-2.4); POTASSIUM 4.1 mmol/L (3.5-5.1); SODIUM 136 mmol/L (136-145)
[2019-01-15] MEDS: morphine SULFATE 4 MG/ML VIAL IVPUSH PRN ×3 (08:09→20:00)
[2019-01-15] MEDS: ERTAPENEM SODIUM 1 GM in SODIUM CHLORIDE 50 ML IVPB SCH (10:50)
[2019-01-15] MEDS: LACTOBACILLUS ACIDOPHILUS 1 TABLET PO SCH (10:51)
[2019-01-15] MEDS: HEPARIN NA (PORCINE) 5,000 UNITS/ML 1ML VIAL SQ SCH ×2 (10:52→21:33)
[2019-01-15] MEDS: BUDESONIDE/FORMETEROL FUMARATE 80/4.5 mcg INHALER IH SCH ×2 (10:54→21:32)
[2019-01-15] MEDS: PANTOPRAZOLE 40 MG TABLET (FP) PO SCH (10:55)
--- NOTE | 2019-01-15 11:07 | PN ---
Progress Note, Physician History of Present Illness: Pt seen and examined at bedside. She still has back pain from abscess. She is going to OR today. - Current Medication List Current Medications: Active Medications Acetaminophen (Tylenol -) 650 mg PO Q4H PRN PRN Reason: PAIN LEVEL 1-5 Albuterol Sulfate (Ventolin Hfa Inhaler -) 2 puff IH Q4H PRN PRN Reason: COUGH Budesonide/Formoterol Fumarate (Symbicort 80/4.5mcg -) 2 puff IH BID [facility] Last Admin: 01/15/19 10:54 Dose: 2 puff Heparin Sodium (Porcine) (Heparin -) 5,000 unit SQ BID [facility] Last Admin: 01/15/19 10:52 Dose: 5,000 unit Clindamycin Phosphate (Cleocin 600 Mg Premix Ivpb -) 600 mg in 50 mls @ 100 mls /hr IVPB Q6H-IV PATRICK; Protocol Last Admin: 01/15/19 10:04 Dose: 100 mls/hr Lactated Ringer's (Lactated Ringers Solution) 1,000 mls @ 75 mls/hr IV ASDIR [facility] Last Admin: 01/15/19 08:39 Dose: 75 mls/hr Ertapenem 1 gm/ Sodium (Chloride) 50 mls @ 100 mls/hr IVPB DAILY [facility] Last Admin: 01/15/19 10:50 Dose: 100 mls/hr Lactobacillus Acidophilus (Bacid -) 1 tab PO DAILY [facility] Last Admin: 01/15/19 10:51 Dose: 1 tab Miscellaneous (Lidoderm Patch Removal) 1 each MC DAILY@2200 [facility] Last Admin: 01/14/19 22:14 Dose: 1 each Morphine Sulfate (Morphine Sulfate) 4 mg IVPUSH Q4H PRN PRN Reason: PAIN LEVEL 7 - 10 Last Admin: 01/15/19 08:09 Dose: 4 mg Ondansetron HCl (Zofran Injection) 4 mg IVPUSH Q6H PRN PRN Reason: NAUSEA AND/OR VOMITING Last Admin: 01/14/19 14:43 Dose: 4 mg Pantoprazole Sodium (Protonix -) 40 mg PO DAILY [facility] Last Admin: 01/15/19 10:55 Dose: 40 mg - Objective Vital Signs: Vital Signs Temperature 98.0 F 01/15/19 06:00 Pulse Rate 76 01/15/19 06:00 Respiratory Rate 18 01/15/19 06:00 Blood Pressure 133/70 01/15/19 06:00 O2 Sat by Pulse Oximetry (%) 96 01/14/19 21:00 Constitutional: Yes: Calm Eyes: Yes: Conjunctiva Clear HENT: Yes: Atraumatic Cardiovascular: Yes: S1, S2 Respiratory: Yes: CTA Bilaterally Gastrointestinal: Yes: Normal Bowel Sounds, Soft Genitourinary: Yes: Other (ileal conduit) Musculoskeletal: Yes: WNL Edema: No Integumentary: Yes: Tattoos Neurological: Yes: Oriented Psychiatric: Yes: Oriented Labs: CBC, BMP 01/15/19 06:30 01/15/19 06:30 INR, PTT INR 1.12 (0.83-1.09) H 01/13/19 22:02 Problem List - Problems (1) Cellulitis of back Code(s): L03.312 - CELLULITIS OF BACK [ANY PART EXCEPT BUTTOCK] (2) CKD (chronic kidney disease) Code(s): N18.9 - CHRONIC KIDNEY DISEASE, UNSPECIFIED Qualifiers: Chronic kidney disease stage: stage 3 (moderate) Qualified Code(s): N18.3 - Chronic kidney disease, stage 3 (moderate) Assessment/Plan Current Medications Generic Name Dose Route Start Last Admin Trade Name Freq PRN Reason Stop Dose Admin Acetaminophen 650 mg 01/14/19 03:05 Tylenol - PO Q4H PRN PAIN LEVEL 1-5 Albuterol Sulfate 2 puff 01/14/19 03:10 Ventolin Hfa Inhaler - IH Q4H PRN COUGH Budesonide/Formoterol Fumarate 2 puff 01/14/19 10:00 01/15/19 10:54 Symbicort 80/4.5mcg - IH 2 puff BID PATRICK Administration Heparin Sodium (Porcine) 5,000 unit 01/14/19 22:00 01/15/19 10:52 Heparin - SQ 5,000 unit BID PATRICK Administration Clindamycin Phosphate 600 mg in 50 mls @ 100 mls/hr 01/14/19 03:15 01/15/19 10:04 Cleocin 600 Mg Premix Ivpb - IVPB 100 mls/hr Q6H-IV PATRICK Administration Protocol Lactated Ringer's 1,000 mls @ 75 mls/hr 01/14/19 03:15 01/15/19 08:39 Lactated Ringers Solution IV 75 mls/hr ASDIR PATRICK Administration Ertapenem 1 gm/ Sodium 50 mls @ 100 mls/hr 01/14/19 17:00 01/15/19 10:50 Chloride IVPB 100 mls/hr DAILY PATRICK Administration Lactobacillus Acidophilus 1 tab 01/14/19 10:00 01/15/19 10:51 Bacid - PO 1 tab DAILY PATRICK Administration Miscellaneous 1 each 01/14/19 22:00 01/14/19 22:14 Lidoderm Patch Removal MC 1 each DAILY@2200 PATRICK Administration Morphine Sulfate 4 mg 01/14/19 14:16 01/15/19 08:09 Morphine Sulfate IVPUSH 4 mg Q4H PRN Administration PAIN LEVEL 7 - 10 Ondansetron HCl 4 mg 01/14/19 14:22 01/14/19 14:43 Zofran Injection IVPUSH 4 mg Q6H PRN Administration NAUSEA AND/OR VOMITING Pantoprazole Sodium 40 mg 01/14/19 10:00 01/15/19 10:55 Protonix - PO 40 mg DAILY PATRICK Administration Impression 1. CKD 2. hx hydronephrosis 3. hx uti 4. ovarian cysts 5. anemia 6. adnexal cyst 7. nephrolithiasis 8. cellulitis/abscess Plan - cont to monitor renal function - fluids while npo - follow ua - cont abx - pt going for abscess drainage - avoid nsaids - avoid nephrotoxins
--- NOTE | 2019-01-15 11:15 | PN ---
Progress Note, Physician Chief Complaint: patient in isolation on ivf awaitng to go to OR NPO on iv abx - Current Medication List Current Medications: Active Medications Acetaminophen (Tylenol -) 650 mg PO Q4H PRN PRN Reason: PAIN LEVEL 1-5 Albuterol Sulfate (Ventolin Hfa Inhaler -) 2 puff IH Q4H PRN PRN Reason: COUGH Budesonide/Formoterol Fumarate (Symbicort 80/4.5mcg -) 2 puff IH BID [facility] Last Admin: 01/15/19 10:54 Dose: 2 puff Heparin Sodium (Porcine) (Heparin -) 5,000 unit SQ BID [facility] Last Admin: 01/15/19 10:52 Dose: 5,000 unit Clindamycin Phosphate (Cleocin 600 Mg Premix Ivpb -) 600 mg in 50 mls @ 100 mls /hr IVPB Q6H-IV [facility]; Protocol Last Admin: 01/15/19 10:04 Dose: 100 mls/hr Lactated Ringer's (Lactated Ringers Solution) 1,000 mls @ 75 mls/hr IV ASDIR [facility] Last Admin: 01/15/19 08:39 Dose: 75 mls/hr Ertapenem 1 gm/ Sodium (Chloride) 50 mls @ 100 mls/hr IVPB DAILY [facility] Last Admin: 01/15/19 10:50 Dose: 100 mls/hr Lactobacillus Acidophilus (Bacid -) 1 tab PO DAILY [facility] Last Admin: 01/15/19 10:51 Dose: 1 tab Miscellaneous (Lidoderm Patch Removal) 1 each MC DAILY@2200 [facility] Last Admin: 01/14/19 22:14 Dose: 1 each Morphine Sulfate (Morphine Sulfate) 4 mg IVPUSH Q4H PRN PRN Reason: PAIN LEVEL 7 - 10 Last Admin: 01/15/19 08:09 Dose: 4 mg Ondansetron HCl (Zofran Injection) 4 mg IVPUSH Q6H PRN PRN Reason: NAUSEA AND/OR VOMITING Last Admin: 01/14/19 14:43 Dose: 4 mg Pantoprazole Sodium (Protonix -) 40 mg PO DAILY [facility] Last Admin: 01/15/19 10:55 Dose: 40 mg - Objective Vital Signs: Vital Signs Temperature 98.0 F 01/15/19 06:00 Pulse Rate 76 01/15/19 06:00 Respiratory Rate 18 02/26/19 06:00 Blood Pressure 133/70 01/15/19 06:00 O2 Sat by Pulse Oximetry (%) 96 01/14/19 21:00 Constitutional: Yes: Mild Distress Cardiovascular: Yes: Regular Rate and Rhythm, S1, S2 Respiratory: Yes: CTA Bilaterally Gastrointestinal: Yes: Normal Bowel Sounds, Soft Genitourinary: Yes: Other (ileal conduit) Integumentary: Yes: Other (back wound open with tenderness arrounding area) Neurological: Yes: Alert, Oriented Labs: CBC, BMP 01/15/19 06:30 01/15/19 06:30 INR, PTT INR 1.12 (0.83-1.09) H 01/13/19 22:02 Problem List - Problems (1) Cellulitis of back Assessment/Plan: clindaymcyin vancomycin level 10 ID and surgical consult- NPO on ivf for OR today morphine contact isolation- MRSA ivf gi /dvt ppx zofran for nausea Code(s): L03.312 - CELLULITIS OF BACK [ANY PART EXCEPT BUTTOCK] (2) Axillary hidradenitis suppurativa Assessment/Plan: abx clindamycin Code(s): L73.2 - HIDRADENITIS SUPPURATIVA (3) CKD (chronic kidney disease) Assessment/Plan: monitor renal function ivf while npo Code(s): N18.9 - CHRONIC KIDNEY DISEASE, UNSPECIFIED Qualifiers: Chronic kidney disease stage: stage 3 (moderate) Qualified Code(s): N18.3 - Chronic kidney disease, stage 3 (moderate) (4) UTI (urinary tract infection) Assessment/Plan: ertrapenem awaiting cultures Code(s): N39.0 - URINARY TRACT INFECTION, SITE NOT SPECIFIED Qualifiers: Urinary tract infection type: acute cystitis Hematuria presence: without hematuria Qualified Code(s): N30.00 - Acute cystitis without hematuria
[2019-01-15] MEDS: ONDANSETRON 4 MG/2 ML VIAL IVPUSH PRN (12:11)
[2019-01-15 13:22] LABS: URINE APPEARANCE SLCLOUDY; URINE BILIRUBIN NEGATIVE (<2.0 mg/dL); URINE COLOR LTYELLOW; URINE GLUCOSE (UA) NEGATIVE (NEGATIVE); URINE KETONE NEGATIVE (NEGATIVE); URINE LEUK ESTERASE 2+ (NEGATIVE); URINE NITRITE NEGATIVE (NEGATIVE); URINE PROTEIN 2+ (NEGATIVE); URINE UROBILINOGEN NEGATIVE mg/dL (0.2-1.0)
[2019-01-15 13:32] LABS: EPI CELLS RARE /HPF (FEW); URINE MUCUS RARE
[2019-01-15] MEDS ORDERED: PROPOFOL 20 ML ONE (15:46)
[2019-01-15] MEDS ORDERED: MIDAZOLAM HCL 2 MG/2 ML SINGLE DOSE VIAL ONE (15:47)
[2019-01-15] MEDS ORDERED: SUCCINYLCHOLINE CHLORIDE 200 MG/10 ML VIAL ONE (15:47)
[2019-01-15] MEDS ORDERED: LIDOCAINE HCL/PF 2% SDV 5ML VIAL ONE (15:48)
[2019-01-15] MEDS ORDERED: BUPIVACAINE HCL/PF 0.5% (5MG/ML) 10 ML VIAL ONE (15:50)
[2019-01-15] MEDS ORDERED: LIDOCAINE HCL 1%, 10 MG/ML (20ML VIAL) ONE (15:50)
[2019-01-15] MEDS ORDERED: oxyCODONE HCL 5 MG TABLET PO PRN ×4 (16:23→17:31)
[2019-01-15] MEDS ORDERED: PROMETHAZINE HCL 25 MG/1 ML VIAL IVPUSH PRN (16:23)
[2019-01-15] MEDS ORDERED: ONDANSETRON 4 MG/2 ML VIAL IVPUSH PRN (16:23)
[2019-01-15] MEDS ORDERED: BUPIVACAINE HCL/PF (5 MG/ML) 30 ML VIAL IJ ONE (16:24)
--- NOTE | 2019-01-15 17:06 | OP ---
Operative Note - Note: Operative Date: 01/15/19 Pre-Operative Diagnosis: MRSA carbuncle upper back Operation: debridement skin/subcutaneous tissue/fascia 5cm2, upper back Findings: pus encountered, culture taken, final wound measured 2.5 x 1.5 x 2.8 cm deep, to muscle at base Post-Operative Diagnosis: Same as Pre-op Surgeon: Cody Patel Anesthesiologist/BLUEBERRY GROWER: Mikhail Jj Anesthesia: General Specimens Removed: wound culture to micro Estimated Blood Loss (mls): 5 Instrument used (Debridements only): scalpel, cautery, forceps Fluid Volume Replaced (mls): 400 (crystalloid) Operative Report Dictated: Yes
[2019-01-15] MEDS ORDERED: MORPHINE SULFATE 2 MG/ML VIAL IVPUSH PRN (17:17)
[2019-01-15] MEDS ORDERED: ALBUTEROL SO4 8 GM HFA INHALER IH PRN (17:31)
[2019-01-15] MEDS ORDERED: ACETAMINOPHEN 325 MG TABLET (FP) PO SCH (18:00)
[2019-01-15] MEDS: ACETAMINOPHEN 325 MG TABLET (FP) PO SCH (18:56)
[2019-01-16] MEDS: morphine SULFATE 4 MG/ML VIAL IVPUSH PRN ×5 (00:06→21:42)
[2019-01-16] MEDS: ACETAMINOPHEN 325 MG TABLET (FP) PO SCH ×4 (00:16→18:05)
[2019-01-16] MEDS: CLINDAMYCIN 600MG PREMIX IVPB 600 MG/50 ML BAG IVPB SCH ×4 (02:59→21:43)
[2019-01-16] MEDS: ONDANSETRON 4 MG/2 ML VIAL IVPUSH PRN (02:59)
[2019-01-16] MEDS: oxyCODONE HCL 5 MG TABLET PO PRN (03:00)
[2019-01-16 07:05] LABS: BASO % 0.2 % (0-2.0); EOS % 5.3 % (0-4.5); HEMATOCRIT 38.1 % (32.4-45.2); HEMOGLOBIN 13.3 GM/dL (10.7-15.3); LYMPH % 13.9 % (8-40); MCH 31.2 pg (25.7-33.7); MEAN CELL VOLUME 89.1 fl (80-96); MONO % 6.8 % (3.8-10.2); NEUT % 73.8 % (42.8-82.8); PLATELET COUNT 218 K/MM3 (134-434); RBC 4.27 M/mm3 (3.60-5.2); RDW 14.6 % (11.6-15.6); WHITE BLOOD COUNT 7.5 K/mm3 (4.0-10.0)
[2019-01-16 07:46] LABS: ALBUMIN 2.8 g/dl (3.4-5.0); ALK PHOS 80 U/L (45-117); ANION GAP 9 MMOL/L (8-16); BILIRUBIN,TOTAL 0.4 mg/dL (0.2-1); BLOOD UREA NITROGEN 16 mg/dL (7-18); CALCIUM 8.9 mg/dL (8.5-10.1); CHLORIDE 105 mmol/L (98-107); CO2 24 mmol/L (21-32); CREATININE 2.1 mg/dL (0.55-1.3); GLUCOSE,RANDOM 85 mg/dL (74-106); SGOT/AST 9 U/L (15-37); SGPT/ALT 13 U/L (13-61); SODIUM 138 mmol/L (136-145); TOT PROT 6.8 g/dl (6.4-8.2)
[2019-01-16] MEDS: PANTOPRAZOLE 40 MG TABLET (FP) PO SCH (09:44)
[2019-01-16] MEDS: LACTOBACILLUS ACIDOPHILUS 1 TABLET PO SCH (09:45)
[2019-01-16] MEDS: HEPARIN NA (PORCINE) 5,000 UNITS/ML 1ML VIAL SQ SCH ×2 (09:45→21:43)
[2019-01-16] MEDS: BUDESONIDE/FORMETEROL FUMARATE 80/4.5 mcg INHALER IH SCH ×2 (09:47→21:44)
[2019-01-16] MEDS ORDERED: ERTAPENEM SODIUM 1 GM in SODIUM CHLORIDE 50 ML IVPB SCH (10:00)
--- NOTE | 2019-01-16 11:32 | PN ---
Progress Note (short form) - Note Progress Note: s/p operative debridement yesterday still with pain but improved still with some discomfort abelow urostomy and flank that she states is c/w her UTI symptoms Vital Signs Period Temp Pulse Resp BP Sys/Minor Pulse Ox Last 24 Hr 97.8 F-99.2 F 62-96 14-20 104-135/66-85 91-96 cor-rrr lungs clear abd soft, +urostomy some discomfort below the bag ext no edema back with dressing intact +induration CBC, BMP 01/16/19 06:30 01/16/19 06:30 Microbiology 01/15/19 11:20 Urine - Urine Suprapubic Urine Culture - Preliminary Lactose Fermenting Neg Bacilli 01/14/19 18:00 Blood - Peripheral Venous Blood Culture - Preliminary NO GROWTH OBTAINED AFTER 24 HOURS, INCUBATION TO CONTINUE FOR 4 DAYS. 01/14/19 18:00 Blood - Peripheral Venous Blood Culture - Preliminary NO GROWTH OBTAINED AFTER 24 HOURS, INCUBATION TO CONTINUE FOR 4 DAYS. a/p MRSA abscess- culture sent from ed the day prior to admission with MRSA sensitive to clindamycin would prefer to use given her renal insufficiency UTI- patient reports she is symptomatic with discomfort and flank pain, will continue ertapenem, most recent urine culture with ecoli esbl should have f/u as outpt for her urostomy continue probiotics Problem List - Problems (1) Abscess Code(s): L02.91 - CUTANEOUS ABSCESS, UNSPECIFIED (2) UTI (urinary tract infection) Code(s): N39.0 - URINARY TRACT INFECTION, SITE NOT SPECIFIED Qualifiers: Urinary tract infection type: acute cystitis Hematuria presence: without hematuria Qualified Code(s): N30.00 - Acute cystitis without hematuria (3) CKD (chronic kidney disease) Code(s): N18.9 - CHRONIC KIDNEY DISEASE, UNSPECIFIED Qualifiers: Chronic kidney disease stage: stage 3 (moderate) Qualified Code(s): N18.3 - Chronic kidney disease, stage 3 (moderate) (4) Axillary hidradenitis suppurativa Code(s): L73.2 - HIDRADENITIS SUPPURATIVA
--- NOTE | 2019-01-16 11:39 | PN ---
Progress Note, Physician History of Present Illness: Pt seen and examined at bedside. She had the abscess drained. She is tolerating diet. She still has discomfort. - Current Medication List Current Medications: Active Medications Acetaminophen (Tylenol -) 650 mg PO Q6H [facility] Last Admin: 01/16/19 07:35 Dose: Not Given Albuterol Sulfate (Ventolin Hfa Inhaler -) 2 puff IH Q4H PRN PRN Reason: COUGH Budesonide/Formoterol Fumarate (Symbicort 80/4.5mcg -) 2 puff IH BID [facility] Last Admin: 01/16/19 09:47 Dose: 2 puff Heparin Sodium (Porcine) (Heparin -) 5,000 unit SQ BID [facility] Last Admin: 01/16/19 09:45 Dose: 5,000 unit Clindamycin Phosphate (Cleocin 600 Mg Premix Ivpb -) 600 mg in 50 mls @ 100 mls /hr IVPB Q6H-IV [facility]; Protocol Last Admin: 01/16/19 08:42 Dose: 100 mls/hr Lactated Ringer's (Lactated Ringers Solution) 1,000 mls @ 75 mls/hr IV ASDIR [facility] Last Admin: 01/15/19 18:00 Dose: 75 mls/hr Ertapenem 1 gm/ Sodium (Chloride) 50 mls @ 100 mls/hr IVPB DAILY [facility] Lactobacillus Acidophilus (Bacid -) 1 tab PO DAILY [facility] Last Admin: 01/16/19 09:45 Dose: 1 tab Morphine Sulfate (Morphine Sulfate) 2 mg IVPUSH Q4H PRN PRN Reason: Pain Level 8 - 10 BRE[facility]ROUGH Last Admin: 01/16/19 09:41 Dose: 2 mg Ondansetron HCl (Zofran Injection) 4 mg IVPUSH Q6H PRN PRN Reason: NAUSEA AND/OR VOMITING Last Admin: 01/16/19 02:59 Dose: 4 mg Oxycodone HCl (Roxicodone -) 5 mg PO Q4H PRN PRN Reason: PAIN LEVEL 6-10 Oxycodone HCl (Roxicodone -) 10 mg PO Q6H PRN PRN Reason: PAIN LEVEL 7 - 10 Last Admin: 01/16/19 03:00 Dose: 10 mg Pantoprazole Sodium (Protonix -) 40 mg PO DAILY [facility] Last Admin: 01/16/19 09:44 Dose: 40 mg - Objective Vital Signs: Vital Signs Temperature 97.8 F 01/16/19 08:35 Pulse Rate 96 H 01/16/19 08:35 Respiratory Rate 20 01/16/19 09:00 Blood Pressure 115/73 01/16/19 08:35 O2 Sat by Pulse Oximetry (%) 96 01/16/19 09:00 Constitutional: Yes: Calm Eyes: Yes: Conjunctiva Clear HENT: Yes: Atraumatic Neck: Yes: Supple Cardiovascular: Yes: S1, S2 Respiratory: Yes: CTA Bilaterally Gastrointestinal: Yes: Soft Genitourinary: Yes: Other (ileal conduit) Musculoskeletal: Yes: WNL Edema: No Integumentary: Yes: Tattoos Neurological: Yes: Oriented Psychiatric: Yes: Oriented Labs: CBC, BMP 01/16/19 06:30 01/16/19 06:30 INR, PTT INR 1.12 (0.83-1.09) H 01/13/19 22:02 Problem List - Problems (1) Cellulitis of back Code(s): L03.312 - CELLULITIS OF BACK [ANY PART EXCEPT BUTTOCK] (2) CKD (chronic kidney disease) Code(s): N18.9 - CHRONIC KIDNEY DISEASE, UNSPECIFIED Qualifiers: Chronic kidney disease stage: stage 3 (moderate) Qualified Code(s): N18.3 - Chronic kidney disease, stage 3 (moderate) Assessment/Plan Current Medications Generic Name Dose Route Start Last Admin Trade Name Freq PRN Reason Stop Dose Admin Acetaminophen 650 mg 01/15/19 18:00 01/16/19 07:35 Tylenol - PO Not Given Q6H [facility] Albuterol Sulfate 2 puff 01/15/19 17:31 Ventolin Hfa Inhaler - IH Q4H PRN COUGH Budesonide/Formoterol Fumarate 2 puff 01/15/19 22:00 01/16/19 09:47 Symbicort 80/4.5mcg - IH 2 puff BID [facility] Administration Heparin Sodium (Porcine) 5,000 unit 01/15/19 22:00 01/16/19 09:45 Heparin - SQ 5,000 unit BID [facility] Administration Clindamycin Phosphate 600 mg in 50 mls @ 100 mls/hr 01/15/19 21:00 01/16/19 08:42 Cleocin 600 Mg Premix Ivpb - IVPB 100 mls/hr Q6H-IV [facility] Administration Protocol Lactated Ringer's 1,000 mls @ 75 mls/hr 01/15/19 17:31 01/15/19 18:00 Lactated Ringers Solution IV 75 mls/hr ASDIR [facility] Administration Ertapenem 1 gm/ Sodium 50 mls @ 100 mls/hr 01/16/19 12:00 Chloride IVPB DAILY [facility] Lactobacillus Acidophilus 1 tab 01/16/19 10:00 01/16/19 09:45 Bacid - PO 1 tab DAILY [facility] Administration Morphine Sulfate 2 mg 01/15/19 17:31 01/16/19 09:41 Morphine Sulfate IVPUSH 2 mg Q4H PRN Administration Pain Level 8 - 10 BREAKTHROUGH Ondansetron HCl 4 mg 01/15/19 17:31 01/16/19 02:59 Zofran Injection IVPUSH 4 mg Q6H PRN Administration NAUSEA AND/OR VOMITING Oxycodone HCl 5 mg 01/15/19 17:31 Roxicodone - PO Q4H PRN PAIN LEVEL 6-10 Oxycodone HCl 10 mg 01/15/19 17:31 01/16/19 03:00 Roxicodone - PO 10 mg Q6H PRN Administration PAIN LEVEL 7 - 10 Pantoprazole Sodium 40 mg 01/16/19 10:00 01/16/19 09:44 Protonix - PO 40 mg DAILY [facility] Administration Impression 1. CKD 2. hx hydronephrosis 3. uti- esbl 4. ovarian cysts 5. anemia 6. adnexal cyst 7. nephrolithiasis 8. cellulitis/abscess Plan - cont with fluids - security officer is higher today, repeat in am - cont to follow cultures - abx per ID - cont wound care - avoid nsaids - avoid nephrotoxins
[2019-01-16] MEDS: ERTAPENEM SODIUM 1 GM in SODIUM CHLORIDE 50 ML IVPB SCH (11:44)
[2019-01-16] MEDS: LACTATED RINGERS SOLUTION 1,000 ML IV SCH ×2 (14:33→18:05)
--- NOTE | 2019-01-16 14:33 | PN ---
Progress Note, Physician Chief Complaint: Cellulitis History of Present Illness: Previous notes and events reviewed awake and alert NAD s/p operative debridement - Current Medication List Current Medications: Active Medications Acetaminophen (Tylenol -) 650 mg PO Q6H [facility] Last Admin: 01/16/19 11:45 Dose: Not Given Albuterol Sulfate (Ventolin Hfa Inhaler -) 2 puff IH Q4H PRN PRN Reason: COUGH Budesonide/Formoterol Fumarate (Symbicort 80/4.5mcg -) 2 puff IH BID [facility] Last Admin: 01/16/19 09:47 Dose: 2 puff Heparin Sodium (Porcine) (Heparin -) 5,000 unit SQ BID [facility] Last Admin: 01/16/19 09:45 Dose: 5,000 unit Clindamycin Phosphate (Cleocin 600 Mg Premix Ivpb -) 600 mg in 50 mls @ 100 mls /hr IVPB Q6H-IV [facility]; Protocol Last Admin: 01/16/19 08:42 Dose: 100 mls/hr Lactated Ringer's (Lactated Ringers Solution) 1,000 mls @ 75 mls/hr IV ASDIR [facility] Last Admin: 01/15/19 18:00 Dose: 75 mls/hr Ertapenem 1 gm/ Sodium (Chloride) 50 mls @ 100 mls/hr IVPB DAILY [facility] Last Admin: 01/16/19 11:44 Dose: 100 mls/hr Lactobacillus Acidophilus (Bacid -) 1 tab PO DAILY [facility] Last Admin: 01/16/19 09:45 Dose: 1 tab Morphine Sulfate (Morphine Sulfate) 2 mg IVPUSH Q4H PRN PRN Reason: Pain Level 8 - 10 BREAK[facility]ROUGH Last Admin: 01/16/19 09:41 Dose: 2 mg Ondansetron HCl (Zofran Injection) 4 mg IVPUSH Q6H PRN PRN Reason: NAUSEA AND/OR VOMITING Last Admin: 01/16/19 02:59 Dose: 4 mg Oxycodone HCl (Roxicodone -) 5 mg PO Q4H PRN PRN Reason: PAIN LEVEL 6-10 Oxycodone HCl (Roxicodone -) 10 mg PO Q6H PRN PRN Reason: PAIN LEVEL 7 - 10 Last Admin: 01/16/19 03:00 Dose: 10 mg Pantoprazole Sodium (Protonix -) 40 mg PO DAILY [facility] Last Admin: 01/16/19 09:44 Dose: 40 mg - Objective Vital Signs: Vital Signs Temperature 97.8 F 01/16/19 08:35 Pulse Rate 96 H 01/16/19 08:35 Respiratory Rate 20 01/16/19 09:00 Blood Pressure 115/73 01/16/19 08:35 O2 Sat by Pulse Oximetry (%) 96 01/16/19 09:00 Constitutional: Yes: Well Nourished, No Distress, Calm Eyes: Yes: Conjunctiva Clear HENT: Yes: Atraumatic Cardiovascular: Yes: Regular Rate and Rhythm Respiratory: Yes: Regular, CTA Bilaterally Gastrointestinal: Yes: Normal Bowel Sounds, Soft, Other (non tender) Genitourinary: Yes: Other (urostomy) Musculoskeletal: Yes: WNL Extremities: Yes: WNL Edema: No Wound/Incision: Yes: Dressing Dry and Intact Neurological: Yes: Alert, Oriented Psychiatric: Yes: Alert, Oriented Labs: CBC, BMP 01/16/19 06:30 01/16/19 06:30 INR, PTT INR 1.12 (0.83-1.09) H 01/13/19 22:02 Microbiology 01/15/19 16:31 Back Gram Stain - Final 01/15/19 11:20 Urine - Urine Suprapubic Urine Culture - Preliminary Lactose Fermenting Neg Bacilli 01/14/19 18:00 Blood - Peripheral Venous Blood Culture - Preliminary NO GROWTH OBTAINED AFTER 24 HOURS, INCUBATION TO CONTINUE FOR 4 DAYS. 01/14/19 18:00 Blood - Peripheral Venous Blood Culture - Preliminary NO GROWTH OBTAINED AFTER 24 HOURS, INCUBATION TO CONTINUE FOR 4 DAYS. Problem List - Problems (1) Carbuncle of back Assessment/Plan: -surgery on board -daily dressing chages -ID on board -continue with clindamycin and ertapenem -pending wound culture Code(s): L02.232 - CARBUNCLE OF BACK [ANY PART, EXCEPT BUTTOCK] (2) CKD (chronic kidney disease) Assessment/Plan: -renal on board -BUN/Cr 16/2.1 -cont IVF -avoid NSAID and nephrotoxic medication Code(s): N18.9 - CHRONIC KIDNEY DISEASE, UNSPECIFIED Qualifiers: Chronic kidney disease stage: stage 3 (moderate) Qualified Code(s): N18.3 - Chronic kidney disease, stage 3 (moderate) (3) UTI (urinary tract infection) Assessment/Plan: -UC positive for lactose fermenting neg bacilli -continue on Ertapenem -ID on board Code(s): N39.0 - URINARY TRACT INFECTION, SITE NOT SPECIFIED Qualifiers: Urinary tract infection type: acute cystitis Hematuria presence: without hematuria Qualified Code(s): N30.00 - Acute cystitis without hematuria Assessment/Plan see problem list dvt ppx
--- NOTE | 2019-01-16 19:19 | PN ---
Progress Note, Physician History of Present Illness: Pt s/p debridement of MRSA carbuncle of back with wound packed and dressed. Pain is less than previous postop, but still has been requiring some intermittent morphine. Overall feeling a little better. No fevers, wbc down. Culture from OR pending. - Current Medication List Current Medications: Active Medications Acetaminophen (Tylenol -) 650 mg PO Q6H [facility] Last Admin: 01/16/19 18:05 Dose: Not Given Albuterol Sulfate (Ventolin Hfa Inhaler -) 2 puff IH Q4H PRN PRN Reason: COUGH Budesonide/Formoterol Fumarate (Symbicort 80/4.5mcg -) 2 puff IH BID [facility] Last Admin: 01/16/19 09:47 Dose: 2 puff Heparin Sodium (Porcine) (Heparin -) 5,000 unit SQ BID [facility] Last Admin: 01/16/19 09:45 Dose: 5,000 unit Clindamycin Phosphate (Cleocin 600 Mg Premix Ivpb -) 600 mg in 50 mls @ 100 mls /hr IVPB Q6H-IV [facility]; Protocol Last Admin: 01/16/19 14:34 Dose: 100 mls/hr Lactated Ringer's (Lactated Ringers Solution) 1,000 mls @ 75 mls/hr IV ASDIR [facility] Last Admin: 01/16/19 18:05 Dose: Not Given Ertapenem 1 gm/ Sodium (Chloride) 50 mls @ 100 mls/hr IVPB DAILY [facility] Last Admin: 01/16/19 11:44 Dose: 100 mls/hr Lactobacillus Acidophilus (Bacid -) 1 tab PO DAILY [facility] Last Admin: 01/16/19 09:45 Dose: 1 tab Morphine Sulfate (Morphine Sulfate) 2 mg IVPUSH Q4H PRN PRN Reason: Pain Level 8 - 10 BREAKTHROUGH Last Admin: 01/16/19 18:04 Dose: 2 mg Ondansetron HCl (Zofran Injection) 4 mg IVPUSH Q6H PRN PRN Reason: NAUSEA AND/OR VOMITING Last Admin: 01/16/19 02:59 Dose: 4 mg Oxycodone HCl (Roxicodone -) 5 mg PO Q4H PRN PRN Reason: PAIN LEVEL 6-10 Oxycodone HCl (Roxicodone -) 10 mg PO Q6H PRN PRN Reason: PAIN LEVEL 7 - 10 Last Admin: 01/16/19 03:00 Dose: 10 mg Pantoprazole Sodium (Protonix -) 40 mg PO DAILY [facility] Last Admin: 01/16/19 09:44 Dose: 40 mg - Objective Vital Signs: Vital Signs Temperature 97.8 F 01/16/19 14:34 Pulse Rate 70 01/16/19 14:34 Respiratory Rate 20 01/16/19 14:34 Blood Pressure 131/84 01/16/19 14:34 O2 Sat by Pulse Oximetry (%) 96 01/16/19 09:00 Constitutional: Yes: Well Nourished, No Distress, Calm Eyes: Yes: Conjunctiva Clear, EOM Intact HENT: Yes: Atraumatic, Normocephalic Gastrointestinal: Yes: Soft, Abdomen, Obese, Tenderness (some near urostomy), Other (ileal conduit RLQ) Genitourinary: Yes: Other (ileal conduit) Musculoskeletal: Yes: Back Pain (near wound, but less tender today). No: Joint Swelling Extremities: No: Cool, Cyanosis Integumentary: Yes: Incision (upper back just left of midline, dressed), Tattoos. No: Rash Wound/Incision: Yes: Dressing Dry and Intact (intact but with serous drainage on gauze), Dressing Removed (and changed - wound clean, with cauterized tissues on lopez and base, no bleeding or purulence, packing removed; margins with local induration, much less tender than preop, no significant erythema), Unapproximated. No: Reddened (minimal pink at surrounding edges) Neurological: Yes: Alert, Oriented Labs: CBC, BMP 01/16/19 06:30 01/16/19 06:30 Microbiology 01/14/19 18:00 Blood Culture - Preliminary Blood - Peripheral Venous NO GROWTH OBTAINED AFTER 48 HOURS, INCUBATION TO CONTINUE FOR 3 DAYS. 01/14/19 18:00 Blood Culture - Preliminary Blood - Peripheral Venous NO GROWTH OBTAINED AFTER 48 HOURS, INCUBATION TO CONTINUE FOR 3 DAYS. 01/15/19 16:31 Gram Stain - Final Back 01/15/19 11:20 Urine Culture - Preliminary Urine - Urine Suprapubic Lactose Fermenting Neg Bacilli Problem List - Problems (1) Carbuncle of back Assessment/Plan: MRSA carbuncle, OR culture still pending s/p local debridement of skin/subcutaneous tissue/fascia wbc down today dressing changed and wound repacked with 1/2" iodoform covered with folded gauze and tape to hold will change dressing tomorrow afternoon pt will need wound care/daily packing changes on discharge SW/CM to arrange for VNS will be able to help do dressings on days VNS cannot come he did observe my dressing/packing change antibiotics per ID f/u culture pain meds prn - encouraged pt to take scheduled tylenol as baseline pain control , to minimize need for narcotics over that she expressed understanding and agreement Code(s): L02.232 - CARBUNCLE OF BACK [ANY PART, EXCEPT BUTTOCK] (2) Lower abdominal pain Code(s): R10.30 - LOWER ABDOMINAL PAIN, UNSPECIFIED (3) Axillary hidradenitis suppurativa Code(s): L73.2 - HIDRADENITIS SUPPURATIVA (4) Urinary tract infection Assessment/Plan: abx per ID, mgmt per primary team Code(s): N39.0 - URINARY TRACT INFECTION, SITE NOT SPECIFIED Qualifiers: Urinary tract infection type: site unspecified Hematuria presence: without hematuria Qualified Code(s): N39.0 - Urinary tract infection, site not specified (6) CKD (chronic kidney disease) Code(s): N18.9 - CHRONIC KIDNEY DISEASE, UNSPECIFIED Qualifiers: Chronic kidney disease stage: stage 3 (moderate) Qualified Code(s): N18.3 - Chronic kidney disease, stage 3 (moderate) (7) Smokes cigarettes Code(s): F17.210 - NICOTINE DEPENDENCE, CIGARETTES, UNCOMPLICATED (8) Marijuana abuse, continuous Code(s): F12.10 - CANNABIS ABUSE, UNCOMPLICATED
[2019-01-17] MEDS: ACETAMINOPHEN 325 MG TABLET (FP) PO SCH ×5 (00:55→23:03)
[2019-01-17] MEDS: ONDANSETRON 4 MG/2 ML VIAL IVPUSH PRN (01:01)
[2019-01-17] MEDS: oxyCODONE HCL 5 MG TABLET PO PRN (01:02)
[2019-01-17] MEDS: morphine SULFATE 4 MG/ML VIAL IVPUSH PRN (03:17)
[2019-01-17] MEDS: CLINDAMYCIN 600MG PREMIX IVPB 600 MG/50 ML BAG IVPB SCH ×4 (03:18→20:55)
[2019-01-17] MEDS: MORPHINE SULFATE 2 MG/ML VIAL IVPUSH PRN ×3 (07:54→20:56)
[2019-01-17 08:00] LABS: HEMATOCRIT 38.2 % (32.4-45.2); HEMOGLOBIN 13.2 GM/dL (10.7-15.3); MCH 30.8 pg (25.7-33.7); MCHC 34.6 g/dl (32.0-36.0); MEAN PLT VOLUME 8.7 fl (7.5-11.1); PLATELET COUNT 215 K/MM3 (134-434); RBC 4.29 M/mm3 (3.60-5.2); RDW 14.2 % (11.6-15.6); WHITE BLOOD COUNT 5.9 K/mm3 (4.0-10.0)
[2019-01-17 08:24] LABS: ALBUMIN 2.8 g/dl (3.4-5.0); ALK PHOS 71 U/L (45-117); ANION GAP 6 MMOL/L (8-16); BILIRUBIN,TOTAL 0.3 mg/dL (0.2-1); BLOOD UREA NITROGEN 11 mg/dL (7-18); CALCIUM 8.9 mg/dL (8.5-10.1); CHLORIDE 104 mmol/L (98-107); CO2 29 mmol/L (21-32); GLUCOSE,RANDOM 90 mg/dL (74-106); POTASSIUM 4.1 mmol/L (3.5-5.1); SGOT/AST 9 U/L (15-37); SGPT/ALT 13 U/L (13-61); SODIUM 139 mmol/L (136-145); TOT PROT 6.8 g/dl (6.4-8.2)
[2019-01-17] MEDS: PANTOPRAZOLE 40 MG TABLET (FP) PO SCH (09:17)
[2019-01-17] MEDS: LACTOBACILLUS ACIDOPHILUS 1 TABLET PO SCH (09:17)
[2019-01-17] MEDS: HEPARIN NA (PORCINE) 5,000 UNITS/ML 1ML VIAL SQ SCH ×2 (09:17→21:05)
[2019-01-17] MEDS: ERTAPENEM SODIUM 1 GM in SODIUM CHLORIDE 50 ML IVPB SCH (09:18)
[2019-01-17] MEDS: BUDESONIDE/FORMETEROL FUMARATE 80/4.5 mcg INHALER IH SCH ×2 (09:20→21:06)
--- NOTE | 2019-01-17 14:23 | PN ---
Progress Note, Physician Chief Complaint: s/p I/D for back lesion - Current Medication List Current Medications: Active Medications Acetaminophen (Tylenol -) 650 mg PO Q6H [facility] BEDS AT [facility] Last Admin: 01/17/19 12:04 Dose: Not Given Albuterol Sulfate (Ventolin Hfa Inhaler -) 2 puff IH Q4H PRN PRN Reason: COUGH Last Admin: 01/17/19 01:10 Dose: 2 puff Budesonide/Formoterol Fumarate (Symbicort 80/4.5mcg -) 2 puff IH BID [facility] 234 BEDS AT [facility] Last Admin: 01/17/19 09:20 Dose: 2 puff Heparin Sodium (Porcine) (Heparin -) 5,000 unit SQ BID [facility] Last Admin: 01/17/19 09:17 Dose: 5,000 unit Clindamycin Phosphate (Cleocin 600 Mg Premix Ivpb -) 600 mg in 50 mls @ 100 mls /hr IVPB Q6H-IV [facility]; Protocol Last Admin: 01/17/19 14:13 Dose: 100 mls/hr Lactated Ringer's (Lactated Ringers Solution) 1,000 mls @ 75 mls/hr IV ASDIR COUNTS INCLUDE 234 BEDS AT [facility] Last Admin: 01/16/19 18:05 Dose: Not Given Ertapenem 1 gm/ Sodium (Chloride) 50 mls @ 100 mls/hr IVPB DAILY [facility]CLUDE 234 BEDS AT [facility] Last Admin: 01/17/19 09:18 Dose: 100 mls/hr Lactobacillus Acidophilus (Bacid -) 1 tab PO DAILY [facility] 234 BEDS AT [facility] Last Admin: 01/17/19 09:17 Dose: 1 tab Morphine Sulfate (Morphine Sulfate) 2 mg IVPUSH Q4H PRN PRN Reason: Pain Level 8 - 10 BREAKTHROUGH Last Admin: 01/17/19 07:54 Dose: 2 mg Ondansetron HCl (Zofran Injection) 4 mg IVPUSH Q6H PRN PRN Reason: NAUSEA AND/OR VOMITING Last Admin: 01/17/19 01:01 Dose: 4 mg Oxycodone HCl (Roxicodone -) 5 mg PO Q4H PRN PRN Reason: PAIN LEVEL 6-10 Oxycodone HCl (Roxicodone -) 10 mg PO Q6H PRN PRN Reason: PAIN LEVEL 7 - 10 Last Admin: 01/17/19 01:02 Dose: 10 mg Pantoprazole Sodium (Protonix -) 40 mg PO DAILY [facility] Last Admin: 01/17/19 09:17 Dose: 40 mg - Objective Vital Signs: Vital Signs Temperature 98.3 F 01/17/19 10:00 Pulse Rate 70 01/17/19 10:00 Respiratory Rate 20 01/17/19 10:00 Blood Pressure 121/78 01/17/19 10:00 O2 Sat by Pulse Oximetry (%) 96 01/17/19 09:00 Constitutional: Yes: Calm Cardiovascular: Yes: Regular Rate and Rhythm, S1, S2 Respiratory: Yes: CTA Bilaterally Gastrointestinal: Yes: Normal Bowel Sounds, Soft Wound/Incision: Yes: Other (back wound packed) Labs: CBC, BMP 01/17/19 07:27 01/17/19 07:27 INR, PTT INR 1.12 (0.83-1.09) H 01/13/19 22:02 Problem List - Problems (1) Cellulitis of back Assessment/Plan: clindaymcyin MRSA in wound s/p I/D wound packed by surgery Code(s): L03.312 - CELLULITIS OF BACK [ANY PART EXCEPT BUTTOCK] (2) Axillary hidradenitis suppurativa Assessment/Plan: abx clindamycin Code(s): L73.2 - HIDRADENITIS SUPPURATIVA (3) CKD (chronic kidney disease) Assessment/Plan: monitor renal function Code(s): N18.9 - CHRONIC KIDNEY DISEASE, UNSPECIFIED Qualifiers: Chronic kidney disease stage: stage 3 (moderate) Qualified Code(s): N18.3 - Chronic kidney disease, stage 3 (moderate) (4) UTI (urinary tract infection) Assessment/Plan: ertrapenem awaiting cultures Microbiology 01/15/19 11:20 Urine - Urine Suprapubic Urine Culture - Preliminary Lactose Fermenting Neg Bacilli Code(s): N39.0 - URINARY TRACT INFECTION, SITE NOT SPECIFIED Qualifiers: Urinary tract infection type: acute cystitis Hematuria presence: without hematuria Qualified Code(s): N30.00 - Acute cystitis without hematuria
--- NOTE | 2019-01-17 14:50 | PN ---
Progress Note, Physician History of Present Illness: Pt seen and examined at bedside. She is awake and alert. She feels that the back pain is improved. - Current Medication List Current Medications: Active Medications Acetaminophen (Tylenol -) 650 mg PO Q6H [facility] Last Admin: 01/17/19 12:04 Dose: Not Given Albuterol Sulfate (Ventolin Hfa Inhaler -) 2 puff IH Q4H PRN PRN Reason: COUGH Last Admin: 01/17/19 01:10 Dose: 2 puff Budesonide/Formoterol Fumarate (Symbicort 80/4.5mcg -) 2 puff IH BID [facility] Last Admin: 01/17/19 09:20 Dose: 2 puff Heparin Sodium (Porcine) (Heparin -) 5,000 unit SQ BID [facility] Last Admin: 01/17/19 09:17 Dose: 5,000 unit Clindamycin Phosphate (Cleocin 600 Mg Premix Ivpb -) 600 mg in 50 mls @ 100 mls /hr IVPB Q6H-IV [facility]; Protocol Last Admin: 01/17/19 14:13 Dose: 100 mls/hr Lactated Ringer's (Lactated Ringers Solution) 1,000 mls @ 75 mls/hr IV ASDIR [facility] Last Admin: 01/16/19 18:05 Dose: Not Given Ertapenem 1 gm/ Sodium (Chloride) 50 mls @ 100 mls/hr IVPB DAILY [facility] Last Admin: 01/17/19 09:18 Dose: 100 mls/hr Lactobacillus Acidophilus (Bacid -) 1 tab PO DAILY [facility] Last Admin: 01/17/19 09:17 Dose: 1 tab Morphine Sulfate (Morphine Sulfate) 2 mg IVPUSH Q4H PRN PRN Reason: Pain Level 8 - 10 BREAKTHROUGH Last Admin: 01/17/19 07:54 Dose: 2 mg Ondansetron HCl (Zofran Injection) 4 mg IVPUSH Q6H PRN PRN Reason: NAUSEA AND/OR VOMITING Last Admin: 01/17/19 01:01 Dose: 4 mg Oxycodone HCl (Roxicodone -) 5 mg PO Q4H PRN PRN Reason: PAIN LEVEL 6-10 Oxycodone HCl (Roxicodone -) 10 mg PO Q6H PRN PRN Reason: PAIN LEVEL 7 - 10 Last Admin: 01/17/19 01:02 Dose: 10 mg Pantoprazole Sodium (Protonix -) 40 mg PO DAILY [facility] Last Admin: 01/17/19 09:17 Dose: 40 mg - Objective Vital Signs: Vital Signs Temperature 98.2 F 01/17/19 14:23 Pulse Rate 67 01/17/19 14:23 Respiratory Rate 20 01/17/19 14:23 Blood Pressure 124/83 01/17/19 14:23 O2 Sat by Pulse Oximetry (%) 96 01/17/19 09:00 Constitutional: Yes: Calm Eyes: Yes: Conjunctiva Clear HENT: Yes: Atraumatic Neck: Yes: Supple Cardiovascular: Yes: S1, S2 Respiratory: Yes: CTA Bilaterally Gastrointestinal: Yes: Normal Bowel Sounds, Soft Genitourinary: Yes: Other (ileal conduit) Musculoskeletal: Yes: WNL Edema: Yes Integumentary: Yes: Tattoos Neurological: Yes: Oriented Psychiatric: Yes: Oriented Labs: CBC, BMP 01/17/19 07:27 01/17/19 07:27 INR, PTT INR 1.12 (0.83-1.09) H 01/13/19 22:02 Problem List - Problems (1) Cellulitis of back Code(s): L03.312 - CELLULITIS OF BACK [ANY PART EXCEPT BUTTOCK] (2) CKD (chronic kidney disease) Code(s): N18.9 - CHRONIC KIDNEY DISEASE, UNSPECIFIED Qualifiers: Chronic kidney disease stage: stage 3 (moderate) Qualified Code(s): N18.3 - Chronic kidney disease, stage 3 (moderate) Assessment/Plan Current Medications Generic Name Dose Route Start Last Admin Trade Name Freq PRN Reason Stop Dose Admin Acetaminophen 650 mg 01/15/19 18:00 01/17/19 12:04 Tylenol - PO Not Given Q6H [facility] Albuterol Sulfate 2 puff 01/15/19 17:31 01/17/19 01:10 Ventolin Hfa Inhaler - IH 2 puff Q4H PRN Administration COUGH Budesonide/Formoterol Fumarate 2 puff 01/15/19 22:00 01/17/19 09:20 Symbicort 80/4.5mcg - IH 2 puff BID [facility] Administration Heparin Sodium (Porcine) 5,000 unit 01/15/19 22:00 01/17/19 09:17 Heparin - SQ 5,000 unit BID [facility] Administration Clindamycin Phosphate 600 mg in 50 mls @ 100 mls/hr 01/15/19 21:00 01/17/19 14:13 Cleocin 600 Mg Premix Ivpb - IVPB 100 mls/hr Q6H-IV [facility] Administration Protocol Lactated Ringer's 1,000 mls @ 75 mls/hr 01/15/19 17:31 01/16/19 18:05 Lactated Ringers Solution IV Not Given ASDIR [facility] Ertapenem 1 gm/ Sodium 50 mls @ 100 mls/hr 01/16/19 12:00 01/17/19 09:18 Chloride IVPB 100 mls/hr DAILY [facility] Administration Lactobacillus Acidophilus 1 tab 01/16/19 10:00 01/17/19 09:17 Bacid - PO 1 tab DAILY [facility] Administration Morphine Sulfate 2 mg 01/17/19 05:21 01/17/19 07:54 Morphine Sulfate IVPUSH 2 mg Q4H PRN Administration Pain Level 8 - 10 BREAKTHROUGH Ondansetron HCl 4 mg 01/15/19 17:31 01/17/19 01:01 Zofran Injection IVPUSH 4 mg Q6H PRN Administration NAUSEA AND/OR VOMITING Oxycodone HCl 5 mg 01/15/19 17:31 Roxicodone - PO Q4H PRN PAIN LEVEL 6-10 Oxycodone HCl 10 mg 01/15/19 17:31 01/17/19 01:02 Roxicodone - PO 10 mg Q6H PRN Administration PAIN LEVEL 7 - 10 Pantoprazole Sodium 40 mg 01/16/19 10:00 01/17/19 09:17 Protonix - PO 40 mg DAILY [facility] Administration Impression 1. CKD 2. hx hydronephrosis 3. uti- esbl 4. ovarian cysts 5. anemia 6. adnexal cyst 7. nephrolithiasis 8. cellulitis/abscess Plan - cont with fluids until tomorrow - switch to 1/2 ns - cont wound care - avoid nsaids - avoid nephrotoxins
[2019-01-17] MEDS: SODIUM CHLORIDE 0.45% 1,000 ML IV SCH (15:48)
--- NOTE | 2019-01-17 16:21 | PN ---
Progress Note, Physician History of Present Illness: Pt s/p debridement of MRSA carbuncle of back with wound packed and dressed. Pain is better today, still hurts, can't lie on back yet. Overall feeling a little better. No fevers, wbc normal. Culture from OR presumptive MRSA as well, sensitivities pending. - Current Medication List Current Medications: Active Medications Acetaminophen (Tylenol -) 650 mg PO Q6H [facility] Last Admin: 01/17/19 12:04 Dose: Not Given Albuterol Sulfate (Ventolin Hfa Inhaler -) 2 puff IH Q4H PRN PRN Reason: COUGH Last Admin: 01/17/19 01:10 Dose: 2 puff Budesonide/Formoterol Fumarate (Symbicort 80/4.5mcg -) 2 puff IH BID [facility] Last Admin: 01/17/19 09:20 Dose: 2 puff Heparin Sodium (Porcine) (Heparin -) 5,000 unit SQ BID [facility] Last Admin: 01/17/19 09:17 Dose: 5,000 unit Clindamycin Phosphate (Cleocin 600 Mg Premix Ivpb -) 600 mg in 50 mls @ 100 mls /hr IVPB Q6H-IV [facility]; Protocol Last Admin: 01/17/19 14:13 Dose: 100 mls/hr Ertapenem 1 gm/ Sodium (Chloride) 50 mls @ 100 mls/hr IVPB DAILY [facility] Last Admin: 01/17/19 09:18 Dose: 100 mls/hr Sodium Chloride (1/2 Normal Saline) 1,000 mls @ 50 mls/hr IV ASDIR [facility] Stop: 01/18/19 14:51 Last Admin: 01/17/19 15:48 Dose: 50 mls/hr Lactobacillus Acidophilus (Bacid -) 1 tab PO DAILY [facility] Last Admin: 01/17/19 09:17 Dose: 1 tab Morphine Sulfate (Morphine Sulfate) 2 mg IVPUSH Q4H PRN PRN Reason: Pain Level 8 - 10 BREAKTHROUGH Last Admin: 01/17/19 15:47 Dose: 2 mg Ondansetron HCl (Zofran Injection) 4 mg IVPUSH Q6H PRN PRN Reason: NAUSEA AND/OR VOMITING Last Admin: 01/17/19 01:01 Dose: 4 mg Oxycodone HCl (Roxicodone -) 5 mg PO Q4H PRN PRN Reason: PAIN LEVEL 6-10 Oxycodone HCl (Roxicodone -) 10 mg PO Q6H PRN PRN Reason: PAIN LEVEL 7 - 10 Last Admin: 01/17/19 01:02 Dose: 10 mg Pantoprazole Sodium (Protonix -) 40 mg PO DAILY [facility] Last Admin: 01/17/19 09:17 Dose: 40 mg - Objective Vital Signs: Vital Signs Temperature 98.2 F 01/17/19 14:23 Pulse Rate 67 01/17/19 14:23 Respiratory Rate 20 01/17/19 14:23 Blood Pressure 124/83 01/17/19 14:23 O2 Sat by Pulse Oximetry (%) 96 01/17/19 09:00 Constitutional: Yes: Well Nourished, No Distress, Calm Eyes: Yes: Conjunctiva Clear, EOM Intact HENT: Yes: Atraumatic, Normocephalic Genitourinary: Yes: Other (ileal conduit) Musculoskeletal: Yes: Back Pain (at wound). No: Joint Swelling Extremities: No: Cool, Cyanosis Integumentary: Yes: Incision (upper back). No: Jaundice, Rash Wound/Incision: Yes: Dressing Dry and Intact (with serosang strikethrough/ drainage on gauze), Dressing Removed (and changed - packing removed, wound clean , starting to show pink in some places on lopez of wound and base; repacked with 1/2" iodoform, covered with gauze and tape to hold), Unapproximated, Other (local induration improving, no sig erythema) Neurological: Yes: Alert, Oriented Labs: CBC, BMP 01/17/19 07:27 01/17/19 07:27 Problem List - Problems (1) Carbuncle of back Assessment/Plan: MRSA carbuncle, OR culture sensitivities pending POD2 s/p local debridement of skin/subcutaneous tissue/fascia wbc normal, no fevers dressing changed and wound repacked with 1/2" iodoform covered with folded gauze and tape to hold pt tolerated well with minimal pain pt will need wound care/daily packing changes on discharge SW/CM to arrange for VNS if possible will be able to do dressings on days VNS cannot come he will be here in am for dressing change - will demonstrate then and ask him to demo back before she leaves antibiotics per ID f/u culture results pain meds prn - strongly encouraged pt to take scheduled tylenol as baseline pain control, to minimize need for narcotics over that she expressed understanding and agreement will stop morphine tomorrow discussed with Dr. Weir Code(s): L02.232 - CARBUNCLE OF BACK [ANY PART, EXCEPT BUTTOCK] (2) Lower abdominal pain Code(s): R10.30 - LOWER ABDOMINAL PAIN, UNSPECIFIED (3) Axillary hidradenitis suppurativa Code(s): L73.2 - HIDRADENITIS SUPPURATIVA (4) Urinary tract infection Assessment/Plan: abx per ID, mgmt per primary team Code(s): N39.0 - URINARY TRACT INFECTION, SITE NOT SPECIFIED Qualifiers: Urinary tract infection type: site unspecified Hematuria presence: without hematuria Qualified Code(s): N39.0 - Urinary tract infection, site not specified (6) CKD (chronic kidney disease) Code(s): N18.9 - CHRONIC KIDNEY DISEASE, UNSPECIFIED Qualifiers: Chronic kidney disease stage: stage 3 (moderate) Qualified Code(s): N18.3 - Chronic kidney disease, stage 3 (moderate) (7) Smokes cigarettes Code(s): F17.210 - NICOTINE DEPENDENCE, CIGARETTES, UNCOMPLICATED (8) Marijuana abuse, continuous Code(s): F12.10 - CANNABIS ABUSE, UNCOMPLICATED
--- NOTE | 2019-01-17 17:00 | PN ---
Progress Note (short form) - Note Progress Note: s/p operative debridement wound just changed by surgery she feels much improved no abdominal pain Vital Signs Period Temp Pulse Resp BP Sys/Minor Pulse Ox Last 24 Hr 98.0 F-98.4 F 66-70 18-20 114-124/71-83 96-96 cor-rrr lungs clear abd soft,nt +urostomy ext no edema dressing on back CBC, BMP 01/17/19 07:27 01/17/19 07:27 Microbiology 01/15/19 11:20 Urine - Urine Suprapubic Urine Culture - Preliminary Lactose Fermenting Neg Bacilli 01/15/19 16:31 Back Gram Stain - Final 01/15/19 16:31 Back Wound Culture - Preliminary Presumptive Mrsa (Pbp2a Pos) 01/14/19 18:00 Blood - Peripheral Venous Blood Culture - Preliminary NO GROWTH OBTAINED AFTER 48 HOURS, INCUBATION TO CONTINUE FOR 3 DAYS. 01/14/19 18:00 Blood - Peripheral Venous Blood Culture - Preliminary NO GROWTH OBTAINED AFTER 48 HOURS, INCUBATION TO CONTINUE FOR 3 DAYS. a/p MRSA abscess- culture sent from ed the day prior to admission with MRSA sensitive to clindamycin would prefer to use given her renal insufficiency doubt uti- low colony count, d/c ertapenem day #4 should have f/u as outpt for her urostomy continue probiotics continue clindamycin hope to switch to po in am Problem List - Problems (1) Abscess Code(s): L02.91 - CUTANEOUS ABSCESS, UNSPECIFIED (2) UTI (urinary tract infection) Code(s): N39.0 - URINARY TRACT INFECTION, SITE NOT SPECIFIED Qualifiers: Urinary tract infection type: acute cystitis Hematuria presence: without hematuria Qualified Code(s): N30.00 - Acute cystitis without hematuria (3) CKD (chronic kidney disease) Code(s): N18.9 - CHRONIC KIDNEY DISEASE, UNSPECIFIED Qualifiers: Chronic kidney disease stage: stage 3 (moderate) Qualified Code(s): N18.3 - Chronic kidney disease, stage 3 (moderate) (4) Axillary hidradenitis suppurativa Code(s): L73.2 - HIDRADENITIS SUPPURATIVA
[2019-01-17] MEDS ORDERED: MELATONIN 5 MG TABLETS PO ONE (22:27)
[2019-01-18] MEDS: oxyCODONE HCL 5 MG TABLET PO PRN (03:11)
[2019-01-18] MEDS: CLINDAMYCIN 600MG PREMIX IVPB 600 MG/50 ML BAG IVPB SCH ×3 (03:11→14:11)
[2019-01-18] MEDS: MORPHINE SULFATE 2 MG/ML VIAL IVPUSH PRN (03:46)
[2019-01-18] MEDS: ACETAMINOPHEN 325 MG TABLET (FP) PO SCH ×3 (06:00→13:19)
[2019-01-18] MEDS: HEPARIN NA (PORCINE) 5,000 UNITS/ML 1ML VIAL SQ SCH (09:57)
[2019-01-18] MEDS: PANTOPRAZOLE 40 MG TABLET (FP) PO SCH (09:57)
[2019-01-18] MEDS: LACTOBACILLUS ACIDOPHILUS 1 TABLET PO SCH (09:57)
[2019-01-18] MEDS: BUDESONIDE/FORMETEROL FUMARATE 80/4.5 mcg INHALER IH SCH (09:59)
[2019-01-18] MEDS: SODIUM CHLORIDE 0.45% 1,000 ML IV SCH (09:59)
--- NOTE | 2019-01-18 11:20 | PN ---
Progress Note, Physician Chief Complaint: Cellulitis MRSA in wound History of Present Illness: Previous notes and events reviewed awake and alert NAD s/p operative debridement - Current Medication List Current Medications: Active Medications Acetaminophen (Tylenol -) 650 mg PO Q6H [facility] Last Admin: 01/18/19 10:08 Dose: 650 mg Albuterol Sulfate (Ventolin Hfa Inhaler -) 2 puff IH Q4H PRN PRN Reason: COUGH Last Admin: 01/17/19 01:10 Dose: 2 puff Budesonide/Formoterol Fumarate (Symbicort 80/4.5mcg -) 2 puff IH BID [facility] Last Admin: 01/18/19 09:59 Dose: Not Given Heparin Sodium (Porcine) (Heparin -) 5,000 unit SQ BID [facility] Last Admin: 01/18/19 09:57 Dose: 5,000 unit Clindamycin Phosphate (Cleocin 600 Mg Premix Ivpb -) 600 mg in 50 mls @ 100 mls /hr IVPB Q6H-IV [facility]; Protocol Last Admin: 01/18/19 09:57 Dose: 100 mls/hr Sodium Chloride (1/2 Normal Saline) 1,000 mls @ 50 mls/hr IV ASDIR [facility] Stop: 01/18/19 14:51 Last Admin: 01/18/19 09:59 Dose: 50 mls/hr Lactobacillus Acidophilus (Bacid -) 1 tab PO DAILY [facility] Last Admin: 01/18/19 09:57 Dose: 1 tab Morphine Sulfate (Morphine Sulfate) 2 mg IVPUSH Q4H PRN PRN Reason: Pain Level 8 - 10 BREAKTHROUGH Last Admin: 01/18/19 03:46 Dose: 2 mg Ondansetron HCl (Zofran Injection) 4 mg IVPUSH Q6H PRN PRN Reason: NAUSEA AND/OR VOMITING Last Admin: 01/17/19 01:01 Dose: 4 mg Oxycodone HCl (Roxicodone -) 5 mg PO Q4H PRN PRN Reason: PAIN LEVEL 6-10 Oxycodone HCl (Roxicodone -) 10 mg PO Q6H PRN PRN Reason: PAIN LEVEL 7 - 10 Last Admin: 01/18/19 03:11 Dose: 10 mg Pantoprazole Sodium (Protonix -) 40 mg PO DAILY [facility] Last Admin: 01/18/19 09:57 Dose: 40 mg - Objective Vital Signs: Vital Signs Temperature 97.9 F 01/18/19 10:10 Pulse Rate 68 01/18/19 10:10 Respiratory Rate 18 01/18/19 10:10 Blood Pressure 130/91 01/18/19 10:10 O2 Sat by Pulse Oximetry (%) 100 01/17/19 21:00 Constitutional: Yes: No Distress, Calm Eyes: Yes: Conjunctiva Clear HENT: Yes: Atraumatic Cardiovascular: Yes: Regular Rate and Rhythm Respiratory: Yes: Regular, CTA Bilaterally Gastrointestinal: Yes: Normal Bowel Sounds, Soft Musculoskeletal: Yes: WNL Extremities: Yes: WNL Edema: No Neurological: Yes: Alert, Oriented Psychiatric: Yes: Alert, Oriented Labs: CBC, BMP 01/17/19 07:27 01/17/19 07:27 INR, PTT INR 1.12 (0.83-1.09) H 01/13/19 22:02 Problem List - Problems (1) Carbuncle of back Assessment/Plan: -surgery on board -daily dressing chages -ID on board -continue with clindamycin -wound culture positive for MRSA -on discharge will need daily dressing changes Code(s): L02.232 - CARBUNCLE OF BACK [ANY PART, EXCEPT BUTTOCK] (2) CKD (chronic kidney disease) Assessment/Plan: -renal on board -BUN/Cr /. -cont IVF -avoid NSAID and nephrotoxic medication Code(s): N18.9 - CHRONIC KIDNEY DISEASE, UNSPECIFIED Qualifiers: Chronic kidney disease stage: stage 3 (moderate) Qualified Code(s): N18.3 - Chronic kidney disease, stage 3 (moderate) (3) UTI (urinary tract infection) Assessment/Plan: -UC positive for lactose fermenting neg bacilli -ID on board Code(s): N39.0 - URINARY TRACT INFECTION, SITE NOT SPECIFIED Qualifiers: Urinary tract infection type: acute cystitis Hematuria presence: without hematuria Qualified Code(s): N30.00 - Acute cystitis without hematuria Assessment/Plan see problem list dvt ppx
--- NOTE | 2019-01-18 13:49 | PN ---
Progress Note, Physician History of Present Illness: Pt s/p debridement of MRSA carbuncle of back with wound packed and dressed. Pain is better today, still hurts, can't lie on back yet. Overall feeling a little better. No fevers, wbc normal. Culture from OR MRSA as well, sensitivities same as ER. - Current Medication List Current Medications: Active Medications Acetaminophen (Tylenol -) 650 mg PO Q6H [facility] Last Admin: 01/18/19 13:19 Dose: Not Given Albuterol Sulfate (Ventolin Hfa Inhaler -) 2 puff IH Q4H PRN PRN Reason: COUGH Last Admin: 01/17/19 01:10 Dose: 2 puff Budesonide/Formoterol Fumarate (Symbicort 80/4.5mcg -) 2 puff IH BID [facility] Last Admin: 01/18/19 09:59 Dose: Not Given Heparin Sodium (Porcine) (Heparin -) 5,000 unit SQ BID [facility] Last Admin: 01/18/19 09:57 Dose: 5,000 unit Clindamycin Phosphate (Cleocin 600 Mg Premix Ivpb -) 600 mg in 50 mls @ 100 mls /hr IVPB Q6H-IV [facility]; Protocol Last Admin: 01/18/19 09:57 Dose: 100 mls/hr Sodium Chloride (1/2 Normal Saline) 1,000 mls @ 50 mls/hr IV ASDIR [facility] Stop: 01/18/19 14:51 Last Admin: 01/18/19 09:59 Dose: 50 mls/hr Lactobacillus Acidophilus (Bacid -) 1 tab PO DAILY [facility] Last Admin: 01/18/19 09:57 Dose: 1 tab Ondansetron HCl (Zofran Injection) 4 mg IVPUSH Q6H PRN PRN Reason: NAUSEA AND/OR VOMITING Last Admin: 01/17/19 01:01 Dose: 4 mg Oxycodone HCl (Roxicodone -) 5 mg PO Q4H PRN PRN Reason: PAIN LEVEL 6-10 Oxycodone HCl (Roxicodone -) 10 mg PO Q6H PRN PRN Reason: PAIN LEVEL 7 - 10 Last Admin: 01/18/19 03:11 Dose: 10 mg Pantoprazole Sodium (Protonix -) 40 mg PO DAILY [facility] Last Admin: 01/18/19 09:57 Dose: 40 mg - Objective Vital Signs: Vital Signs Temperature 97.9 F 01/18/19 10:10 Pulse Rate 68 01/18/19 10:10 Respiratory Rate 18 01/18/19 10:10 Blood Pressure 130/91 01/18/19 10:10 O2 Sat by Pulse Oximetry (%) 100 01/17/19 21:00 Constitutional: Yes: Well Nourished, No Distress, Calm (but tearful) Eyes: Yes: Conjunctiva Clear, EOM Intact HENT: Yes: Atraumatic, Normocephalic Extremities: No: Cool, Cyanosis Integumentary: Yes: Incision (upper back dressed), Tattoos. No: Jaundice, Rash Wound/Incision: Yes: Dressing Dry and Intact (with serous/serosang light drainage), Dressing Removed (and changed by pt's ), Unapproximated (clean , turning pale and pink, very little cautery artifact left). No: Reddened, Bleeding Neurological: Yes: Alert, Oriented Psychiatric: Yes: Alert, Oriented Labs: no new labs Microbiology 01/15/19 16:31 Gram Stain - Final Back Wound Culture - Final Mr S Aureus 01/15/19 11:20 Urine Culture - Final Urine - Urine Suprapubic Escherichia Coli Esbl Hr Receptionist 01/14/19 18:00 Blood Culture - Preliminary Blood - Peripheral Venous NO GROWTH OBTAINED AFTER 72 HOURS, INCUBATION TO CONTINUE FOR 2 DAYS. 01/14/19 18:00 Blood Culture - Preliminary Blood - Peripheral Venous NO GROWTH OBTAINED AFTER 72 HOURS, INCUBATION TO CONTINUE FOR 2 DAYS. Problem List - Problems (1) Carbuncle of back Assessment/Plan: MRSA carbuncle, culture same POD3 s/p local debridement of skin/subcutaneous tissue/fascia wbc normal, no fevers dressing changed and wound repacked with saline damp 2x2's by pt's covered with folded gauze and paper tape to hold pt tolerated well with minimal pain pt will need wound care/daily packing changes on discharge to do dressings - demonstrated good technique and feels comfortable with it antibiotics per ID - possibly oral to finish course at home pain meds prn - tylenol first line, morphine d/c'd instructions in d/c plan ok for d/c home from surgical standpoint f/u [facility] 2 wks [facility] nurses and/or can continue daily packing changes with damp saline 2x2's Code(s): L02.232 - CARBUNCLE OF BACK [ANY PART, EXCEPT BUTTOCK] (2) Lower abdominal pain Code(s): R10.30 - LOWER ABDOMINAL PAIN, UNSPECIFIED (3) Axillary hidradenitis suppurativa Code(s): L73.2 - HIDRADENITIS SUPPURATIVA (4) Urinary tract infection Code(s): N39.0 - URINARY TRACT INFECTION, SITE NOT SPECIFIED Qualifiers: Urinary tract infection type: site unspecified Hematuria presence: without hematuria Qualified Code(s): N39.0 - Urinary tract infection, site not specified (6) CKD (chronic kidney disease) Code(s): N18.9 - CHRONIC KIDNEY DISEASE, UNSPECIFIED Qualifiers: Chronic kidney disease stage: stage 3 (moderate) Qualified Code(s): N18.3 - Chronic kidney disease, stage 3 (moderate) (7) Smokes cigarettes Code(s): F17.210 - NICOTINE DEPENDENCE, CIGARETTES, UNCOMPLICATED (8) Marijuana abuse, continuous Code(s): F12.10 - CANNABIS ABUSE, UNCOMPLICATED
[2019-01-18 15:02] VITALS: BP 102/57; PULSE 66; TEMP 97.8
--- NOTE | 2019-01-18 15:49 | PN ---
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 01/14/19 18:00 Blood - Peripheral Venous Blood Culture - Preliminary NO GROWTH OBTAINED AFTER 72 HOURS, INCUBATION TO CONTINUE FOR 2 DAYS. a/p MRSA abscess- culture sent from ed the day prior to admission with MRSA sensitive to clindamycin would prefer to use given her renal insufficiency doubt uti- low colony count, d/c ertapenem day #4 should have f/u as outpt for her urostomy switch to po clindamycin 300 tid for 5 days probiotics for one month should f/u with her PCP and surgery d/w hospitalist Problem List - Problems (1) Abscess Code(s): L02.91 - CUTANEOUS ABSCESS, UNSPECIFIED (2) UTI (urinary tract infection) Code(s): N39.0 - URINARY TRACT INFECTION, SITE NOT SPECIFIED Qualifiers: Urinary tract infection type: acute cystitis Hematuria presence: without hematuria Qualified Code(s): N30.00 - Acute cystitis without hematuria (3) CKD (chronic kidney disease) Code(s): N18.9 - CHRONIC KIDNEY DISEASE, UNSPECIFIED Qualifiers: Chronic kidney disease stage: stage 3 (moderate) Qualified Code(s): N18.3 - Chronic kidney disease, stage 3 (moderate) (4) Axillary hidradenitis suppurativa Code(s): L73.2 - HIDRADENITIS SUPPURATIVA
--- NOTE | 2019-01-18 17:07 | DS ---
Physical Examination Vital Signs: Vital Signs Temperature 97.8 F 01/18/19 15:00 Pulse Rate 66 01/18/19 15:00 Respiratory Rate 18 01/18/19 15:00 Blood Pressure 102/57 L 01/18/19 15:00 O2 Sat by Pulse Oximetry (%) 100 01/18/19 09:00 Findings/Remarks: Patient is a 43 y/o female with past medical history of CKD, b/l hydronephrosis , s/p ileal conduit. Patient presented to ER with complaints of pain to abscess of mid upper back. Evaluated by surgery and I&D performed with no adverse effects. Wound was cultured and positive for MRSA. Patient was started on IV antibiotics and followed by ID while inpatient. Followed by nephrology while inpatient for her hx of CKD. Patient has been having daily wound changes and as per ID can switch IV antibiotics to be taken orally. Patient will have daily dressing changes to be done and her was demonstrated by surgery how to properly care for her wound. Constitutional: Yes: Well Nourished, No Distress, Calm Eyes: Yes: Conjunctiva Clear HENT: Yes: Atraumatic, Normocephalic Cardiovascular: Yes: Regular Rate and Rhythm Respiratory: Yes: Regular, CTA Bilaterally Gastrointestinal: Yes: Normal Bowel Sounds, Soft Renal/: Yes: Other (urostomy) Extremities: Yes: WNL Edema: No Wound/Incision: Yes: Dressing Dry and Intact Neurological: Yes: Alert, Oriented Psychiatric: Yes: Alert, Oriented Labs: CBC, BMP 01/17/19 07:27 01/17/19 07:27 Discharge Summary Reason For Visit: CELLULITIS OF BACK EXCEPT BUTTOCK Current Active Problems Carbuncle of back (Acute) Cellulitis of back (Acute) Lower abdominal pain (Acute) Procedures: Principal: I&D Hospital Course: see progress notes Laboratory Tests 01/13/19 01/13/19 01/13/19 21:30 21:30 22:02 WBC 12.1 H RBC 4.61 Hgb 14.7 Hct 41.8 MCV 90.6 MCH 31.8 MCHC 35.1 RDW 14.5 Plt Count 227 MPV 8.6 D Absolute Neuts (auto) 10.0 H Neutrophils % 82.4 Lymphocytes % 9.9 D Monocytes % 4.5 Eosinophils % 2.7 Basophils % 0.5 Nucleated RBC % 0 ESR 53 H PT with INR 13.20 H INR 1.12 H Sodium Potassium Chloride Carbon Dioxide Anion Gap BUN Creatinine Creat Clearance w eGFR Random Glucose Calcium Magnesium Total Bilirubin AST ALT Alkaline Phosphatase Total Protein Albumin Serum , Qual Urine Color Urine Appearance Urine pH Ur Specific [place] Urine Protein Urine Glucose (UA) Urine Ketones Urine Blood Urine Nitrite Urine Bilirubin Urine Urobilinogen Ur Leukocyte Esterase Urine WBC (Auto) Urine RBC (Auto) Ur Epithelial Cells Urine Mucus Random Vancomycin 01/14/19 01/14/19 01/14/19 01:00 01:27 01:27 WBC RBC Hgb Hct MCV MCH MCHC RDW Plt Count MPV Absolute Neuts (auto) Neutrophils % Lymphocytes % Monocytes % Eosinophils % Basophils % Nucleated RBC % ESR PT with INR INR Sodium 139 Potassium 4.0 Chloride 110 H Carbon Dioxide 23 Anion Gap 6 L BUN 21 H Creatinine 1.9 H Creat Clearance w eGFR 28.72 Random Glucose 90 Calcium 8.7 Magnesium Total Bilirubin 0.5 AST 18 ALT 15 Alkaline Phosphatase 84 Total Protein 7.1 Albumin 3.1 L Serum , Qual Cancelled Negative Urine Color Urine Appearance Urine pH Ur Specific [place] Urine Protein Urine Glucose (UA) Urine Ketones Urine Blood Urine Nitrite Urine Bilirubin Urine Urobilinogen Ur Leukocyte Esterase Urine WBC (Auto) Urine RBC (Auto) Ur Epithelial Cells Urine Mucus Random Vancomycin 01/14/19 01/14/19 01/15/19 18:00 18:00 06:30 WBC 12.8 H RBC 4.55 Hgb 14.3 Hct 41.1 MCV 90.2 MCH 31.3 MCHC 34.7 RDW 14.3 Plt Count 222 MPV 8.8 Absolute Neuts (auto) 10.4 H Neutrophils % 80.8 Lymphocytes % 11.2 Monocytes % 5.3 Eosinophils % 2.2 Basophils % 0.5 Nucleated RBC % 0 ESR 75 H PT with INR INR Sodium 136 Potassium 4.1 Chloride 107 Carbon Dioxide 24 Anion Gap 5 L BUN 16 Creatinine 1.9 H Creat Clearance w eGFR 28.72 Random Glucose 85 Calcium 8.8 Magnesium Total Bilirubin 0.6 AST 16 ALT 14 Alkaline Phosphatase 89 Total Protein 7.3 Albumin 3.2 L Serum , Qual Urine Color Urine Appearance Urine pH Ur Specific [place] Urine Protein Urine Glucose (UA) Urine Ketones Urine Blood Urine Nitrite Urine Bilirubin Urine Urobilinogen Ur Leukocyte Esterase Urine WBC (Auto) Urine RBC (Auto) Ur Epithelial Cells Urine Mucus Random Vancomycin 10.7 L 01/15/19 01/15/19 01/15/19 06:30 06:30 11:20 WBC 11.0 H RBC 4.34 Hgb 13.5 Hct 38.3 MCV 88.3 MCH 31.2 MCHC 35.3 RDW 14.4 Plt Count 211 MPV 8.9 Absolute Neuts (auto) 8.9 H Neutrophils % 80.5 Lymphocytes % 9.7 Monocytes % 6.7 Eosinophils % 2.8 Basophils % 0.3 Nucleated RBC % 0 ESR PT with INR INR Sodium 136 Potassium 4.1 Chloride 104 Carbon Dioxide 26 Anion Gap 6 L BUN 15 Creatinine 1.9 H Creat Clearance w eGFR 28.72 Random Glucose 88 Calcium 8.5 Magnesium 1.9 Total Bilirubin AST ALT Alkaline Phosphatase Total Protein Albumin Serum , Qual Urine Color Ltyellow Urine Appearance Slcloudy Urine pH 6.0 Ur Specific [place] 1.009 L Urine Protein 2+ H Urine Glucose (UA) Negative Urine Ketones Negative Urine Blood 1+ H Urine Nitrite Negative Urine Bilirubin Negative Urine Urobilinogen Negative Ur Leukocyte Esterase 2+ H Urine WBC (Auto) 33 Urine RBC (Auto) 3 Ur Epithelial Cells Rare Urine Mucus Rare Random Vancomycin 01/16/19 01/16/19 01/17/19 06:30 06:30 07:27 WBC 7.5 5.9 RBC 4.27 4.29 Hgb 13.3 13.2 Hct 38.1 38.2 MCV 89.1 89.0 MCH 31.2 30.8 MCHC 35.0 34.6 RDW 14.6 14.2 Plt Count 218 215 MPV 9.0 8.7 Absolute Neuts (auto) 5.6 Neutrophils % 73.8 Lymphocytes % 13.9 D Monocytes % 6.8 Eosinophils % 5.3 H D Basophils % 0.2 Nucleated RBC % 0 ESR PT with INR INR Sodium 138 Potassium 4.0 Chloride 105 Carbon Dioxide 24 Anion Gap 9 BUN 16 Creatinine 2.1 H Creat Clearance w eGFR 25.58 Random Glucose 85 Calcium 8.9 Magnesium Total Bilirubin 0.4 AST 9 L ALT 13 Alkaline Phosphatase 80 Total Protein 6.8 Albumin 2.8 L Serum , Qual Urine Color Urine Appearance Urine pH Ur Specific [place] Urine Protein Urine Glucose (UA) Urine Ketones Urine Blood Urine Nitrite Urine Bilirubin Urine Urobilinogen Ur Leukocyte Esterase Urine WBC (Auto) Urine RBC (Auto) Ur Epithelial Cells Urine Mucus Random Vancomycin 01/17/19 07:27 WBC RBC Hgb Hct MCV MCH MCHC RDW Plt Count MPV Absolute Neuts (auto) Neutrophils % Lymphocytes % Monocytes % Eosinophils % Basophils % Nucleated RBC % ESR PT with INR INR Sodium 139 Potassium 4.1 Chloride 104 Carbon Dioxide 29 Anion Gap 6 L BUN 11 Creatinine 2.0 H Creat Clearance w eGFR 27.07 Random Glucose 90 Calcium 8.9 Magnesium Total Bilirubin 0.3 AST 9 L ALT 13 Alkaline Phosphatase 71 Total Protein 6.8 Albumin 2.8 L Serum , Qual Urine Color Urine Appearance Urine pH Ur Specific [place] Urine Protein Urine Glucose (UA) Urine Ketones Urine Blood Urine Nitrite Urine Bilirubin Urine Urobilinogen Ur Leukocyte Esterase Urine WBC (Auto) Urine RBC (Auto) Ur Epithelial Cells Urine Mucus Random Vancomycin Active Medications Generic Name Dose Route Start Last Admin Trade Name Freq PRN Reason Stop Dose Admin Acetaminophen 650 mg 01/15/19 18:00 01/18/19 13:19 Tylenol - PO Not Given Q6H PATRICK Albuterol Sulfate 2 puff 01/15/19 17:31 01/17/19 01:10 Ventolin Hfa Inhaler - IH 2 puff Q4H PRN Administration COUGH Budesonide/Formoterol Fumarate 2 puff 01/15/19 22:00 01/18/19 09:59 Symbicort 80/4.5mcg - IH Not Given BID PATRICK Heparin Sodium (Porcine) 5,000 unit 01/15/19 22:00 01/18/19 09:57 Heparin - SQ 5,000 unit BID PATRICK Administration Clindamycin Phosphate 600 mg in 50 mls @ 100 mls/hr 01/15/19 21:00 01/18/19 14:11 Cleocin 600 Mg Premix Ivpb - IVPB 100 mls/hr Q6H-IV PATRICK Administration Protocol Lactobacillus Acidophilus 1 tab 01/16/19 10:00 01/18/19 09:57 Bacid - PO 1 tab DAILY PATRICK Administration Ondansetron HCl 4 mg 01/15/19 17:31 01/17/19 01:01 Zofran Injection IVPUSH 4 mg Q6H PRN Administration NAUSEA AND/OR VOMITING Oxycodone HCl 5 mg 01/15/19 17:31 Roxicodone - PO Q4H PRN PAIN LEVEL 6-10 Oxycodone HCl 10 mg 01/15/19 17:31 01/18/19 03:11 Roxicodone - PO 10 mg Q6H PRN Administration PAIN LEVEL 7 - 10 Pantoprazole Sodium 40 mg 01/16/19 10:00 01/18/19 09:57 Protonix - PO 40 mg DAILY PATRICK Administration Microbiology 01/15/19 16:31 Back Gram Stain - Final 01/15/19 16:31 Back Wound Culture - Final S Aureus 01/15/19 11:20 Urine - Urine Suprapubic Urine Culture - Final Escherichia Coli Esbl [facility] Consultant 01/14/19 18:00 Blood - Peripheral Venous Blood Culture - Preliminary NO GROWTH OBTAINED AFTER 72 HOURS, INCUBATION TO CONTINUE FOR 2 DAYS. 01/14/19 18:00 Blood - Peripheral Venous Blood Culture - Preliminary NO GROWTH OBTAINED AFTER 72 HOURS, INCUBATION TO CONTINUE FOR 2 DAYS. Condition: Stable - Instructions Diet, Activity, Other Instructions: Postoperative instructions: You had debridement of an MRSA back abscess on by Dr. Coyd Patel of [facility]. Activity/Wound Care: Resume your usual activities gradually. Your will do dressing changes and wound packing daily. The wound should be packed with saline-dampened 2x2/small gauze to fit entirely inside the wound edges. This will be covered with some folded dry gauze and held in place with tape (or a large square bandaid, as it gets smaller). As the wound gets smaller and shallower, less packing will be needed over time. You will need to get 2x2 and 4x4 gauze at the drugstore, and gloves for him to use, as well as tape as needed. You may shower daily with your dressing/packing off/out, just pat the incision area dry, and make sure it can be repacked shortly afterward. No bath or swimming until the wound has fully healed. Medications: For pain, you may use Tylenol (acetaminophen) every 4-6 hours as needed. Do not take more than 4000 mg of acetaminophen in a day. Take medications as prescribed or indicated on the labeling. You may also need to take antibiotics at home. Make sure to take all the pills as prescribed, even if you are feeling better, until they are gone. Follow-up: Call the Wound Healing Center at [facility] at to make your postop appointment (usually on a Monday afternoon) with Dr. Patel. The wound clinic is on the fifth floor of [facility] on . Call Dr. Patel's main office at [phone] if you have: * increasing pain not responsive to pain medication * fever of 101F or higher * vomiting * unusual or increasing bleeding or drainage from wounds * increasing redness or swelling at wound sites Also, see your primary medical doctor within 1-2 weeks. You were also diagnosed with a urinary tract infection and given antibiotics. Follow up with PMD in 1 week follow up with surgery next week as per surgery discharge instructions follow up with wound clinic in 2 weeks continue with oral antibiotics as prescribed if develop severe pain, fever, or signs of infection to wound return to ER daily dressing changes as demonstrated by surgery Referrals: Cody Patel MD [Staff Physician] - (call [phone] [facility] on [facility] for followup appointment.) Vicki Guan DO [Primary Care Provider] - Disposition: HOME - Home Medications Comprehensive Discharge Medication List: Ambulatory Orders Lactobacillus Acidophilus [Bacid -] 1 tab PO DAILY 30 Days #30 tab 10/05/18 Albuterol Sulfate Inhaler - [Ventolin HFA Inhaler -] 1 - 2 inh PO Q4H PRN #1 inhaler 10/16/18 Budesonide/Formeterol Fumarate [SYMBICORT 80/4.5mcg -] 2 puff IH BID inhaler Acetaminophen [Tylenol .Regular Strength -] 650 mg PO Q6H PRN tablet 12/07/18 Pantoprazole Sodium [Protonix -] 40 mg PO DAILY #30 tablet.ec 12/07/18 Cephalexin Monohydrate [Keflex -] 500 mg PO BID 7 Days #14 capsule 01/10/19 Nitrofurantoin Macrocrystal [Nitrofurantoin] 100 mg PO BID 7 Days #14 capsule Oxycodone HCl/Acetaminophen [Percocet 5-325 mg Tablet] 1 tab PO Q6H PRN #5 tablet MDD 3 01/10/19
--- NOTE | 2019-01-18 17:23 | PN ---
Progress Note, Physician History of Present Illness: Pt seen and examined at bedside. She is awake and alert. She denies shortness of breath. She denies fever or chills. Her back feels better. - Current Medication List Current Medications: Active Medications Acetaminophen (Tylenol -) 650 mg PO Q6H [facility] Last Admin: 01/18/19 13:19 Dose: Not Given Albuterol Sulfate (Ventolin Hfa Inhaler -) 2 puff IH Q4H PRN PRN Reason: COUGH Last Admin: 01/17/19 01:10 Dose: 2 puff Budesonide/Formoterol Fumarate (Symbicort 80/4.5mcg -) 2 puff IH BID PATRICK Last Admin: 01/18/19 09:59 Dose: Not Given Heparin Sodium (Porcine) (Heparin -) 5,000 unit SQ BID [facility] Last Admin: 01/18/19 09:57 Dose: 5,000 unit Clindamycin Phosphate (Cleocin 600 Mg Premix Ivpb -) 600 mg in 50 mls @ 100 mls /hr IVPB Q6H-IV PATRICK; Protocol Last Admin: 01/18/19 14:11 Dose: 100 mls/hr Lactobacillus Acidophilus (Bacid -) 1 tab PO DAILY [facility] Last Admin: 01/18/19 09:57 Dose: 1 tab Ondansetron HCl (Zofran Injection) 4 mg IVPUSH Q6H PRN PRN Reason: NAUSEA AND/OR VOMITING Last Admin: 01/17/19 01:01 Dose: 4 mg Oxycodone HCl (Roxicodone -) 5 mg PO Q4H PRN PRN Reason: PAIN LEVEL 6-10 Oxycodone HCl (Roxicodone -) 10 mg PO Q6H PRN PRN Reason: PAIN LEVEL 7 - 10 Last Admin: 01/18/19 03:11 Dose: 10 mg Pantoprazole Sodium (Protonix -) 40 mg PO DAILY [facility] Last Admin: 01/18/19 09:57 Dose: 40 mg - Objective Vital Signs: Vital Signs Temperature 97.8 F 01/18/19 15:00 Pulse Rate 66 01/18/19 15:00 Respiratory Rate 18 01/18/19 15:00 Blood Pressure 102/57 L 01/18/19 15:00 O2 Sat by Pulse Oximetry (%) 100 01/18/19 09:00 Constitutional: Yes: Calm Eyes: Yes: Conjunctiva Clear HENT: Yes: Atraumatic Cardiovascular: Yes: S1, S2 Respiratory: Yes: CTA Bilaterally Gastrointestinal: Yes: Soft Genitourinary: Yes: Other (ileal conduit) Musculoskeletal: Yes: WNL Edema: No Integumentary: Yes: Tattoos Wound/Incision: Yes: Dressing Dry and Intact Neurological: Yes: Oriented Psychiatric: Yes: Oriented Labs: CBC, BMP 01/17/19 07:27 01/17/19 07:27 INR, PTT INR 1.12 (0.83-1.09) H 01/13/19 22:02 Problem List - Problems (1) Cellulitis of back Code(s): L03.312 - CELLULITIS OF BACK [ANY PART EXCEPT BUTTOCK] (2) CKD (chronic kidney disease) Code(s): N18.9 - CHRONIC KIDNEY DISEASE, UNSPECIFIED Qualifiers: Chronic kidney disease stage: stage 3 (moderate) Qualified Code(s): N18.3 - Chronic kidney disease, stage 3 (moderate) Assessment/Plan Current Medications Generic Name Dose Route Start Last Admin Trade Name Freq PRN Reason Stop Dose Admin Acetaminophen 650 mg 01/15/19 18:00 01/18/19 13:19 Tylenol - PO Not Given Q6H PATRICK Albuterol Sulfate 2 puff 01/15/19 17:31 01/17/19 01:10 Ventolin Hfa Inhaler - IH 2 puff Q4H PRN Administration COUGH Budesonide/Formoterol Fumarate 2 puff 01/15/19 22:00 01/18/19 09:59 Symbicort 80/4.5mcg - IH Not Given BID PATRICK Heparin Sodium (Porcine) 5,000 unit 01/15/19 22:00 01/18/19 09:57 Heparin - SQ 5,000 unit BID PATRICK Administration Clindamycin Phosphate 600 mg in 50 mls @ 100 mls/hr 01/15/19 21:00 01/18/19 14:11 Cleocin 600 Mg Premix Ivpb - IVPB 100 mls/hr Q6H-IV PATRICK Administration Protocol Lactobacillus Acidophilus 1 tab 01/16/19 10:00 01/18/19 09:57 Bacid - PO 1 tab DAILY PATRICK Administration Ondansetron HCl 4 mg 01/15/19 17:31 01/17/19 01:01 Zofran Injection IVPUSH 4 mg Q6H PRN Administration NAUSEA AND/OR VOMITING Oxycodone HCl 5 mg 01/15/19 17:31 Roxicodone - PO Q4H PRN PAIN LEVEL 6-10 Oxycodone HCl 10 mg 01/15/19 17:31 01/18/19 03:11 Roxicodone - PO 10 mg Q6H PRN Administration PAIN LEVEL 7 - 10 Pantoprazole Sodium 40 mg 01/16/19 10:00 01/18/19 09:57 Protonix - PO 40 mg DAILY PATRICK Administration Impression 1. CKD 2. hx hydronephrosis 3. uti- esbl 4. ovarian cysts 5. anemia 6. adnexal cyst 7. nephrolithiasis 8. cellulitis/abscess Plan - renal function stabilizing - will see pt in office - cont wound care - avoid nsaids - avoid nephrotoxins - pt tolerating diet
--- NOTE | 2019-01-29 11:54 | OP ---
DATE OF OPERATION: 01/15/2019 PREOPERATIVE DIAGNOSIS: Methicillin-resistant Staphylococcus aureus carbuncle of the upper back. POSTOPERATIVE DIAGNOSIS: Methicillin-resistant Staphylococcus aureus carbuncle of the upper back. PROCEDURE: Debridement of skin, subcutaneous tissue and fascia (5 sq cm) of the upper back. SURGEON: Cody Patel M.D. ANESTHESIA: General endotracheal. ESTIMATED BLOOD LOSS: 5 mL FLUIDS: Crystalloid 400 mL SPECIMEN: Wound culture to microbiology. INSTRUMENTS USED FOR DEBRIDEMENT: Scalpel, cautery and forceps. FINDINGS: An ellipse skin, subcutaneous tissue and fascia were removed down to the muscle at the base of the wound. There was pus encountered of which culture was taken. The final wound measured 2.5 x 1.5 cm with 2.8 cm deep. DISPOSITION: Stable and extubated to PACU. INDICATIONS FOR PROCEDURE: The patient is a 43-year-old woman with multiple medical problems including chronic kidney disease, status post percutaneous nephrostomy, ultimately converted to an aerial conduit in 2006, hidradenitis with some chronic lesions and tracts in bilateral axilla, who was admitted to Medicine with a pustule on her back starting approximately 4 days earlier, which progressed with increasing pain and tenderness, local swelling and induration and erythema, but no active drainage. Two days earlier in the emergency room, aspiration had been attempted, but only enough for a culture was obtained, which is growing MRSA. There was necrotic central area to this wound. She had been prescribed antibiotics, but did not start them initially, returned with additional pain and was admitted for IV antibiotics. She was on vancomycin, clindamycin and ertapenem, also with a urinary tract infection. The antibiotics were being guided by Infectious Disease. An ultrasound showed no discrete fluid collection beneath the lesion, but on review did show a couple of small pockets potentially consistent with the carbuncle as might be expected from MRSA. On physical exam, she had a pustule similar to described above with tenderness, erythema, somewhat necrotic center, no active drainage, erythema, swelling and some induration. She had noted a few nodules under her arms, but had what appeared to be primarily chronic tracts under both arms with a small nodule on the right that was not drainable. White count was 12.8 and it was determined that she would likely benefit significantly from incision and drainage and local debridement of this wound with local packing to completely evacuate the site of necrotic tissue and any pus that was present underneath. She also was completely unlikely to tolerate the procedure under local anesthetic at bedside, thus risks, benefits and alternatives of local debridement of a back abscess including, but not limited to bleeding, infection, recurrent infection, and alternatives inclusive of antibiotics and delayed or surgery with the risk of worsening infection or spread thereof, sepsis and the need for more extensive procedure, were discussed with the patient who was agreeable to the procedure in the operating room and signed informed consent for the same. She is brought to the OR to proceed. OPERATIVE TECHNIQUE: The patient was brought to the operating room and laid in right lateral decubitus position. Sequential compression devices were applied at bilateral lower extremities and Anesthesia was able to sedate and intubate her in this position on the table. Appropriate positioning and padding was undertaken to ensure all body surfaces were correctly protected and her back wound was exposed. The site was prepped and draped with Betadine in sterile fashion and no additional antibiotics were given in the operating room outside of her currently scheduled antibiotics. The area around the necrotic tissue was marked with an ellipse of skin in craniocaudal orientation and the scalpel used to incise first one side of the marked site with pus encountered in the deep tissues. Actually during preparation of the skin with the Betadine, the necrotic surface had given way to a small few drops of purulent drainage so we did expect pus. Culture swab was taken of this and sent to microbiology. The other side of the ellipse was then also incised with the scalpel deep into the tissues until that piece of skin and subcutaneous tissue could be completely excised. The purulent drainage in the wound and any additional necrotic tissue were then carefully probed and the area was cleaned out with gauze. Hemostasis was begun with electrocautery from the edges of the wound down to the deep portion. Once I could clearly see into the wound depth better, an additional piece of necrotic tissue was taken from the deep portion to ensure that the lopez went straight down to the cavity to facilitate appropriate packing of the wound. There were no additional tracts or sinuses noted radiating outward from the wound at the base, but there did appear to be muscle in the base inside that we had taken skin, subcutaneous tissue and fascia no more than approximately 5 sq cm. Once the wound had been completely cleaned out and was irrigated with some saline solution, hemostasis was thoroughly achieved with electrocautery leaving the wound surfaces somewhat blackened, but with no active bleeding and the tissue we had encountered essentially was all clean and bleeding at the edges. The wound was then packed with half-inch Iodoform ribbon and covered with some gauze and silk tape. Local anesthetic was not used. The patient was then, while still intubated, turned onto her back and put onto the stretcher, after which she was awakened and extubated by Anesthesia and on her stretcher she was returned to the recovery room in stable condition having tolerated the procedure well. Cody Patel M.D. [id number]
== END 2019-01-18 18:15 | disposition home or self-care (01) | DRG 383 ==
LOC: JER 18:59 → JERBED 01-14 01:29 → OBSVTOIN 01-14 03:05 → J7W 01-14 20:20
PROVIDERS: ADMIT Internal Medicine; ATTEND Family Medicine
PROC: 0JB70ZZ Excision of Back Subcutaneous Tissue and Fascia, Open Approach (ICD-10-PCS; principal; 2019-01-14)
DX: L02.232 Carbuncle of back [any part, except buttock and flank] (principal); L03.312 Cellulitis of back [any part except buttock and flank]; N18.3 Chronic kidney disease, stage 3 (moderate); J44.9 Chronic obstructive pulmonary disease, unspecified; L73.2 Hidradenitis suppurativa; F17.210 Nicotine dependence, cigarettes, uncomplicated; D64.9 Anemia, unspecified; B95.62 Methicillin resistant Staphylococcus aureus infection as the cause of diseases classified elsewhere; F12.10 Cannabis abuse, uncomplicated; K44.9 Diaphragmatic hernia without obstruction or gangrene; K43.2 Incisional hernia without obstruction or gangrene; N83.209 Unspecified ovarian cyst, unspecified side; N20.0 Calculus of kidney
CPT/HCPCS: 36415; 72070-TC-FY; 76604; 80048; 80053; 81003; 81015; 83735; 84703; 85025; 85027; 85610; 85651; 87040; 87070; 87086; 87186; 87205; 94760; 99284-25; G0378; G0480; J1644

== ENCOUNTER 2019-02-25 02:31 | Observation (INO) | payer OTHER ==
[2019-02-25] MEDS ORDERED: morphine CARPU-JECT 4 MG/1 ML DISP.SYRIN IVPUSH ONE ×2 (03:26→05:49)
[2019-02-25] MEDS ORDERED: SODIUM CHLORIDE 1,000 ML IV STA (03:26)
--- NOTE | 2019-02-25 03:33 | PDOC ---
Attending Attestation - Resident Resident Name: Hawa Batres - ED Attending Attestation I have performed the following: I have examined & evaluated the patient, The case was reviewed & discussed with the resident, I agree w/resident's findings & plan - HPI HPI: 02/25/19 06:12 Pt comes with low abd pain. She is on week 2 of her menses; states that despite her endometriosis, she usually has 1 week menses. She has a bladder ostomy bag; she has frequent UTIs more often than clear UA. Pt has treatment of the UTIs only when she is symptomatic, as she is today. She has a cystitis today. Pt will be admitted for her CYSTITIS as well as her large ovarian cyst that is located in her porsterior pelvis. Pt will be consulted by as well as FOOD GENERAL MANAGER for potential drainiage of the large cyst in the ovary. - Physicial Exam PE: 02/25/19 06:27 Pt has lower abdominal pain. She has multiple findings on CT scan abd pelvis: She has umbilical hernia; she has cystitis with moderate hydronephrosis; she has a large ovarian cyst in the posterior pelvis that is suspicious for malignancy. She will require FOOD GENERAL MANAGER consult, as well as surgery consult, as well as consult. - Medical Decision Making 02/25/19 06:26 NATIVIDAD NATALI Cholelithiasis in the gallbladder neck most likely associated with gallbladder dysmotility may be associated with chronic cholecystitis. If clinically indicated follow-up outpatient Nuclear Medicine Hepatobiliary Scan With Slow 10 Minute Cholecystokinin Injection Gallbladder Ejection Fraction Calculation may be needed. Right kidney nonobstructing nephrolithiasis. Moderate bilateral hydronephrosis and hydroureter with the right and left ureters are diverted into a right lower quadrant neobladder with a ostomy in the right lower quadrant. Small hiatal hernia with mild nonspecific irregular lower esophageal wall thickening at the esophagogastric junction may be due to acute esophagitis or chronic reflux esophagitis and Chapin's esophagitis cannot be excluded. Small periumbilical hernia of small bowel with mild dilation may be due to incarceration with partial small bowel obstruction. If clinically indicated recommend correlation with a CT Scan Of The Abdomen And Pelvis With Oral Contrast contrast may be needed. Anastomotic suture noted in the small bowel with mild dilation of the bowel loops adjacent to the suture material. Constipation with diverticulosis without diverticulitis. Heterogeneous enlarged uterus may be due to fibroids and other uterine masses cannot be excluded. Nonspecific complex right posterior pelvic heterogeneous 8.5 x 8.1 x 7.2 cm complex cystic process may be associated with endometriosis. If clinically indicated recommend correlation with a Pelvic Ultrasound And Follow-Up Outpatient FOOD GENERAL MANAGER consultation. A verbal report of the abnormal findings were discussed with Dr. Ellis by Dr. Neves at 5:28 AM EST February 25, 2019. Heart Score/ECG Review - ECG Intrepretation Rhythm: Regular Rhythm - [place] Sidnaw: Normal - P and PA Prominent R with upright T in V1 (true posterior [place]): No Delta Wave(s) Present: No WPW: No - QRS Poor R Wave Progression: No Q Wave Present: No - ST and T Early Repolarization: No Non Specific ST-T Wave changes: No Flattened T Waves: No Prolonged Q-T Interval: No - ECG Impressions Normal ECG: Yes Non-specific ST Elevation: No Ischemic Changes: No Bradycardia: No Torsades timmy Pointes: No
[2019-02-25] MEDS ORDERED: ALBUTEROL SO4 2.5/IPRATROPIUM 0.5 INH SOL 3 ML VIAL.NEB. NEB ONE ×2 (03:42→04:10)
[2019-02-25 03:52] LABS: BASO % 0.4 % (0-2.0); HEMATOCRIT 39.4 % (32.4-45.2); HEMOGLOBIN 13.3 GM/dL (10.7-15.3); LYMPH % 17.5 % (8-40); MCH 30.6 pg (25.7-33.7); MCHC 33.9 g/dl (32.0-36.0); MEAN CELL VOLUME 90.2 fl (80-96); MEAN PLT VOLUME 8.8 fl (7.5-11.1); MONO % 6.4 % (3.8-10.2); NEUT % 66.7 % (42.8-82.8); PLATELET COUNT 224 K/MM3 (134-434); RBC 4.36 M/mm3 (3.60-5.2); RDW 14.8 % (11.6-15.6); WHITE BLOOD COUNT 8.8 K/mm3 (4.0-10.0)
--- NOTE | 2019-02-25 03:58 | PDOC ---
History of Present Illness - General Stated Complaint: ABDOMINAL PAIN Time Seen by Provider: 02/25/19 03:12 History Source: Patient Exam Limitations: No Limitations - History of Present Illness Initial Comments: 02/25/19 03:52 Pt is a 43yo F with PMH of COPD, Endometriosis, CKD (due to endometriosis with urostomy) presenting to ED with complaints of lower abdominal pain x3 days. Pt states that the pain is in the lower abdomen, feels sharp, does not radiate, associated with diarrhea and brbrp when she wipes and in the toilet. She also states that since yesterday she has been unable to tolerate solid foods and ends up vomiting. She is able to tolerate liquids. Pain is worsened when she walks or when she is having bowel movements. Denies fever, chills, flank pain, nausea, chest pain, sob, numbness/tingling. Was recently on abx due to cyst/ abscess on the back which required surgery. No recent travel. Currently menstruating, on the 2nd week, denies excessive vaginal bleeding PMD: Roge Uro: Jonathan PMH: see hpi PSH: urostomy Meds: inhalers Allergies: nkda Social: denies Past History - Past Medical History Allergies/Adverse Reactions: Allergies Allergy/AdvReac Type Severity Reaction Status Date / Time No Known Allergies Allergy Verified 02/25/19 04:38 Home Medications: Ambulatory Orders Budesonide/Formeterol Fumarate [SYMBICORT 80/4.5mcg -] 2 puff IH BID inhaler Acetaminophen [Tylenol .Regular Strength -] 650 mg PO Q6H PRN tablet 12/07/18 Anemia: Yes Asthma: No Cancer: No Cardiac Disorders: No CVA: No COPD: Yes CHF: No Dementia: No Diabetes: No GI Disorders: No Disorders: Yes (Ileal Conduit, H/O KIDNEY STONES) HTN: No Hypercholesterolemia: No Kidney Stones: Yes (kidney failure) Liver Disease: No Seizures: No Thyroid Disease: No - Surgical History Abdominal Surgery: No Appendectomy: No Cardiac Surgery: No Cholecystectomy: No Lung Surgery: No Neurologic Surgery: No Orthopedic Surgery: No - Reproductive History (#): 0 Para: 0 - Immunization History Immunization Up to Date: Yes - Suicide/Smoking/Psychosocial Hx Smoking Status: No Smoking History: Current every day smoker Have you smoked in the past 12 months: Yes Number of Cigarettes Smoked Daily: 3 If you are a former smoker, when did you quit?: 1 Month ago Cigars Per Day: 0 'Breaking Loose' booklet given: 09/03/18 Hx Alcohol Use: No Drug/Substance Use Hx: No Substance Use Type: None Hx Substance Use Treatment: No Review of Systems - Review of Systems Constitutional: No: Chills, Fever, Weakness HEENTM: No: Symptoms Reported Respiratory: No: Cough, Shortness of Breath (no new sob) Cardiac (ROS): No: Chest Pain, Lightheadedness, Palpitations, Syncope ABD/GI: Yes: See HPI, Diarrhea, Rectal Bleeding, Vomiting, Abdominal cramping. No: Constipated, Nausea, Tarry Stools : No: Burning, Dysuria Musculoskeletal: No: Symptoms Reported Integumentary: No: Symptoms Reported Neurological: No: Symptoms reported *Physical Exam - Physical Exam General Appearance: Yes: Nourished, Appropriately Dressed, Moderate Distress HEENT: positive: EOMI, VIV, Normal ENT Inspection Neck: positive: Trachea midline, Supple. negative: Lymphadenopathy (R), Lymphadenopathy (L) Respiratory/Chest: positive: Wheezing Cardiovascular: positive: Regular Rhythm, Regular Rate, S1, S2. negative: Edema , JVD, Murmur Vascular Pulses: Carotid (R): 2+, Carotid (L): 2+, Dorsalis-Pedis (R): 2+, Doralis-Pedis (L): 2+ Gastrointestinal/Abdominal: positive: Normal Bowel Sounds, Soft, Tenderness ( lower abdominal tenderness), Hernia, Other (urostomy bag). negative: Guarding, Rebound, Mass Musculoskeletal: negative: CVA Tenderness Extremity: positive: Normal Capillary Refill, Pelvis Stable. negative: Swelling , Calf Tenderness Integumentary: positive: Normal Color, Dry, Warm, Other (healing incision on back. ) Neurologic: positive: drug clerk II-XII NML intact, Fully Oriented, Alert, Normal Mood/ Affect, Normal Response, Motor Strength / ED Treatment Course - LABORATORY CBC & Chemistry Diagram: 02/25/19 03:37 02/25/19 03:37 - RADIOLOGY Radiology Studies Ordered: Category Date Time Status ABDOMEN & PELVIS CT WITH CONTR [CT] Stat CT Scan 02/25/19 03:25 Ordered Medical Decision Making - Medical Decision Making 02/25/19 03:56 Pt is a 43yo F with PMH of COPD, Endometriosis, CKD (due to endometriosis with urostomy) presenting to ED with complaints of lower abdominal pain x3 days. Pt states that the pain is in the lower abdomen, feels sharp, does not radiate, associated with diarrhea and brbrp when she wipes and in the toilet. She also states that since yesterday she has been unable to tolerate solid foods and ends up vomiting. She is able to tolerate liquids. Pain is worsened when she walks or when she is having bowel movements. Denies fever, chills, flank pain, nausea, chest pain, sob, numbness/tingling. Was recently on abx due to cyst/ abscess on the back which required surgery. No recent travel. Vitals: PE: diffuse abdominal tenderness, urostomy bag, well healing surgical incision on back, no gross blood, diffuse wheezing ddx includes but not limited to diverticulitis, sbo, viral infection, c.diff, uti -cbc, cmp, lipase, lact, guaiac, ua/ucx -iv fluids, morphine, duoneb -ctap 02/25/19 06:21 labs significant for Cr 1.8 (baseline). UA grossly positive for infection as it has been in the past. Susceptibilites from prior cultures reviewed, pt started on ceftriaxone pt still complaining of pain. 2mg morphine CT: 1. Cholelithiasis in the gallbladder neck most likely associated with gallbladder dysmotility may be associated with chronic cholecystitis 2. Right kidney nonobstructing nephrolithiasis. 3. Moderate bilateral hydronephrosis and hydroureter with the right and left ureters are diverted into a right lower quadrant neobladder with a ostomy in the right lower quadrant. 4. Small hiatal hernia with mild nonspecific irregular lower esophageal wall thickening at the esophagogastric junction may be due to acute esophagitis or chronic reflux esophagitis and Chapin's esophagitis cannot be excluded 5. Small periumbilical hernia of small bowel with mild dilation may be due to incarceration with partial small bowel obstruction. 6. Constipation with diverticulosis without diverticulitis. 7. Nonspecific complex right posterior pelvic heterogeneous 8.5 x 8.1 x 7.2 cm complex cystic process may be associated with endometriosis. findings similar to CT done December 2018. will admit pt for cystitis, pelvic mass, abdominal pain. *DC/Admit/Observation/Transfer Diagnosis at time of Disposition: Cystitis Urinary tract infection Qualifiers: Urinary tract infection type: site unspecified Hematuria presence: without hematuria Qualified Code(s): N39.0 - Urinary tract infection, site not specified Abdominal pain Qualifiers: Abdominal location: lower abdomen, unspecified Qualified Code(s): R10.30 - Lower abdominal pain, unspecified Ovarian cyst Qualifiers: Laterality: right Qualified Code(s): N83.201 - Unspecified ovarian cyst, right side CKD (chronic kidney disease) Qualifiers: Chronic kidney disease stage: unspecified stage Qualified Code(s): N18.9 - Chronic kidney disease, unspecified COPD (chronic obstructive pulmonary disease) Qualifiers: COPD type: unspecified COPD Qualified Code(s): J44.9 - Chronic obstructive pulmonary disease, unspecified - Discharge Dispostion Condition at time of disposition: Good - Referrals Referrals: Vicki Guan DO [Non Staff, Medical] - Rayne Castillo MD [Staff Physician] - - Patient Instructions - Post Discharge Activity
[2019-02-25 04:03] LABS: INR 0.93 (0.83-1.09)
[2019-02-25 04:05] LABS: ACTIVATED PTT 32.6 SECONDS (25.2-36.5)
[2019-02-25] MEDS ORDERED: MORPHINE SULFATE 2 MG/ML VIAL ONE ×2 (04:11→05:59)
[2019-02-25 04:22] LABS: ALBUMIN 3.3 g/dl (3.4-5.0); ALK PHOS 73 U/L (45-117); ANION GAP 8 MMOL/L (8-16); BILIRUBIN,TOTAL 0.3 mg/dL (0.2-1); BLOOD UREA NITROGEN 21 mg/dL (7-18); CALCIUM 8.8 mg/dL (8.5-10.1); CHLORIDE 112 mmol/L (98-107); CO2 20 mmol/L (21-32); CREATININE 1.8 mg/dL (0.55-1.3); GLUCOSE,RANDOM 89 mg/dL (74-106); LIPASE 213 U/L (73-393); POTASSIUM 4.7 mmol/L (3.5-5.1); SGOT/AST 30 U/L (15-37); SGPT/ALT 18 U/L (13-61); SODIUM 141 mmol/L (136-145); TOT PROT 7.2 g/dl (6.4-8.2)
[2019-02-25 04:32] LABS: EPI CELLS 2.3 /HPF (0-5); PH,URINE 6.5 (5.0-8.0); URINE APPEARANCE CLOUDY; URINE BACTERIA 6083.7 /hpf (NEGATIVE); URINE BILIRUBIN NEGATIVE (NEGATIVE); URINE CASTS 45 /hpf (0-8); URINE COLOR YELLOW; URINE GLUCOSE (UA) NEGATIVE (NEGATIVE); URINE KETONE NEGATIVE (NEGATIVE); URINE LEUK ESTERASE 3+ (NEGATIVE); URINE NITRITE POSITIVE (NEGATIVE); URINE PROTEIN 2+ (NEGATIVE); URINE RBC 5 /hpf (0-4); URINE UROBILINOGEN 0.2 mg/dL (0.2-1.0); URINE WBC 79 /hpf (0-5)
[2019-02-25] MEDS ORDERED: CEFTRIAXONE 1 GM in DEXTROSE 5%-WATER - 100 ML IVPB ONE (05:58)
[2019-02-25] MEDS ORDERED: CEFTRIAXONE 1 GM/50 ML BAG ONE (06:06)
--- NOTE | 2019-02-25 10:32 | CONSULT ---
Consult Consult Specialty:: ULTRASOUND TECHNOL Reason for Consultation:: Ovarian cyst - History of Present Illness Chief Complaint: Hematochezia History of Present Illness: 43yo with Advanced Stage IV endometriosis, CKD 2/2 ureter obstruction from endometriosis, treated with urostomy, chronic ESBL UTIs, here with 3 days, b/l LQ pain, hematochezia, diarrhea, nausea and vomiting. Pain is in b/l lower quadrants L>R, nonradiating 8/10, alleviated by lying down and aggravated by BM and walking. Denies, f/c, sick contacts. Last UTI treated with abx 3w ago. LMP started 10 days ago. Monthly cycles. States this pain is not consistent with her endo pain Has not seen an OBGYN in years per her report. - Past Medical History Gastrointestinal: Yes: Hiatal Hernia, Other (umbilical incisional hernia) Hepatobiliary: Yes: Cholelithiasis Renal/: Yes: Renal Inusuff (s/p urinary diversion, bilateral nephrostomies converted to ileal conduit ~2006 [facility]), Renal Calculi, UTI, Other ( ileal conduit) ...LMP: 02/11/19 Infectious Disease: Yes: MRSA, Other (ESBL) Psych: Yes: Anxiety, Depression Endocrine: Yes: Other (prior abnormal TFTs) Dermatology: Yes: Other (hidradenitis) - Past Surgical History Past Surgical History: Yes: Cystectomy, Ileal Conduit - Alcohol/Substance Use Hx Alcohol Use: No History of Substance Use: reports: Marijuana (daily) Date of Last Use: 05/09/18 - Smoking History Smoking history: Current every day smoker Have you smoked in the past 12 months: Yes Aproximately how many cigarettes per day: 3 If you are a former smoker, when did you quit?: 1 Month ago - Social History Usual Living Arrangement: Alone ADL: Independent History of Recent Travel: No Home Medications - Allergies Allergies/Adverse Reactions: Allergies Allergy/AdvReac Type Severity Reaction Status Date / Time No Known Allergies Allergy Verified 02/25/19 04:38 - Home Medications Home Medications: Ambulatory Orders Budesonide/Formeterol Fumarate [SYMBICORT 80/4.5mcg -] 2 puff IH BID inhaler Oxycodone HCl 30 mg PO Q6H PRN 02/26/19 Family Disease History - Family Disease History Family Disease History: CA: Mother, Respiratory: Mother Physical Exam Vital Signs: Vital Signs Temperature 97.7 F 02/25/19 06:35 Pulse Rate 79 02/25/19 06:35 Respiratory Rate 19 02/25/19 02:31 Blood Pressure 119/78 02/25/19 06:35 O2 Sat by Pulse Oximetry (%) 98 02/25/19 06:35 Constitutional: Yes: Well Nourished (Exam deferred as pt uncomfortable and states this is not her endometriosis pain.) Labs: CBC, BMP 02/25/19 03:37 02/25/19 03:37 Imaging - Results Cat Scan: Report Reviewed Assessment/Plan 43yo with endometriosis, here with GI symptoms and pain CT scan reviewed, 8cm cyst seen in pelvis; should have TVUS to better evaluate the mass in the future. This cyst/mass was noted in December on imaging and appears stable. Pt can follow up as outpatient with a ULTRASOUND TECHNOL for further management of this mass. Not a candidate for surgical intervention here given her complicated surgical history and advanced endometriosis, there is no ULTRASOUND TECHNOL ONC support or back up here and she would need this multiple surgeries and advanced disease. Gely Arzate MD
[2019-02-25] MEDS ORDERED: KETOROLAC TROMETHAMINE 15 MG/ML VIAL IVPUSH PRN (10:45)
[2019-02-25] MEDS ORDERED: ACETAMINOPHEN INJECTION 100 ML IVPB ONE (10:49)
[2019-02-25] MEDS: ACETAMINOPHEN 1000 MG/100 ML VIAL (NON FORMULARY) IVPB PRN ×2 (11:00→21:24)
[2019-02-25] MEDS: SODIUM CHLORIDE 1,000 ML IV SCH (11:10)
[2019-02-25] MEDS ORDERED: KETOROLAC TROMETHAMINE 15 MG/ML VIAL ONE (12:01)
--- NOTE | 2019-02-25 12:25 | PN ---
Teaching Attending Note Name of Resident: Janae Esparza ATTENDING PHYSICIAN STATEMENT I saw and evaluated the patient. I reviewed the resident's note and discussed the case with the resident. I agree with the resident's findings and plan as documented. SUBJECTIVE: CC: Abd pain. 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 never had GI bleed before. no fver or chills. no RIOS , no SOB or cough. her BMs have been loose, about 3 a day for past 3 days. last admission she was treated for wound infection on back and was dc on Abx, which she finished about 1.5 weeks ago. she has h/o ovarian cyst, known form before and had [facility] doc. also has known b/l hydronephrosis OBJECTIVE: NAD. awake, alert, oriented. MMM, no facial droop. CV: RRR, no MRG , no JVD Lungs: CTAB Abd:soft, Nd, TTP in LLQ, RLQ, and epigastric area, wiht no rebound tenderness or guarding. ileal conduit with yellow clear urine. Rectal done in ER, with brown stool and Neg guaiac Ext: No darlene aor erythema. skin : L upper posterior back wound with no discharge , and no surrounding erythema neuro: no facial droop, EOMI, tongue at mid line, pupils are round equal and reactive to light . strength 5/5 in upper and lwoer extremities proximally and distally. 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 1- Abd pain, N/V: etiology is not very clear. It could be due to her menstrual period . No signs of ovarian cyst torsion on CT scan. doubt UTI as urine was taken form bag. No diverticulitis on CT. ? viral gastroenteritis . - hold off Abx use. - Id consult to comment on Pyuria - obtain TVUS. - seen by [facility] [employer]. - supportive measures with Iv tylenol and IVF. avoid NSAIDs - she showed red flags requesting morphine or leave AMA . Avoid narcotics - full liquid diet 2- Questionable hematochezia: blood in stool could be due to contamination form her period. rectal exam in ER with brown stoop and neg guaiac - repeat OB . - hold off any further GI w/u at this point unless significant rebleed or drop in Hb - Hold NSaids 3- H/o Asthma, cont symbicort. add Albuterol inhaler 4- CKd : stable cr at base line. cont to monitor 5- Recent wound infeection on back. no signs of infection on or around the wound. off Abx 6- DVT PX : SCDs Observe patient threatened to leave AMA if she does not get IV morphine. risks were explained to her by Dr. Esparza. she agreed to stay
[2019-02-25] MEDS ORDERED: ALBUTEROL SO4 8 GM HFA INHALER IH PRN (12:33)
--- NOTE | 2019-02-25 12:35 | CONSULT ---
Consult Consult Specialty:: General Surgery Reason for Consultation:: umbilical hernia identified on ct scan - History of Present Illness History of Present Illness: Called to evaluate 43F w/ PMHx COPD, Endometriosis, CKD (due to endometriosis with urostomy), chronic ESBL urinary colonization - presents to [facility] ED with c/ o diffuse lower abd pain x 3 days associated with diarrhea. Pain is in b/l lower quadrants L > R, non-radiating /10, alleviated by lying down and aggravated by BM and ambulation. Last meal was yesterday pm wit last episode of nbnb vomiting. has tolerated some PO liquids since then. Currently menstruating. - History Source History Provided By: Patient Limitations to Obtaining History: No Limitations 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 [facility]), Renal Calculi, UTI, Other ( ileal conduit. Bilateral hydronephrosis) Reproductive: Yes: Endometriosis ...LMP: 02/11/19 Heme/Onc: Yes: Anemia Infectious Disease: Yes: MRSA, Other (ESBL) Psych: Yes: Anxiety, Depression Endocrine: Yes: Other (prior abnormal TFTs) Dermatology: Yes: Other (hidradenitis) - Past Surgical History Past Surgical History: Yes: Cystectomy, Ileal Conduit - Alcohol/Substance Use Hx Alcohol Use: No History of Substance Use: reports: Marijuana (daily) Date of Last Use: 05/09/18 - Smoking History Smoking history: Current every day smoker Have you smoked in the past 12 months: Yes Aproximately how many cigarettes per day: 3 If you are a former smoker, when did you quit?: 1 Month ago - Social History Usual Living Arrangement: Alone ADL: Independent History of Recent Travel: No Home Medications - Allergies Allergies/Adverse Reactions: Allergies Allergy/AdvReac Type Severity Reaction Status Date / Time No Known Allergies Allergy Verified 02/25/19 04:38 - Home Medications Home Medications: Ambulatory Orders Budesonide/Formeterol Fumarate [SYMBICORT 80/4.5mcg -] 2 puff IH BID inhaler Acetaminophen [Tylenol .Regular Strength -] 650 mg PO Q6H PRN tablet 12/07/18 Family Disease History - Family Disease History Family Disease History: CA: Mother, Respiratory: Mother Review of Systems - Review of Systems Constitutional: reports: No Symptoms Eyes: reports: No Symptoms HENT: reports: No Symptoms Neck: reports: No Symptoms Cardiovascular: reports: No Symptoms Respiratory: reports: No Symptoms Gastrointestinal: reports: No Symptoms Genitourinary: reports: No Symptoms Breasts: reports: No Symptoms Reported Musculoskeletal: reports: No Symptoms Integumentary: reports: No Symptoms Neurological: reports: No Symptoms Endocrine: reports: No Symptoms Hematology/Lymphatic: reports: No Symptoms Psychiatric: reports: No Symptoms Physical Exam Vital Signs: Vital Signs Temperature 97.7 F 02/25/19 06:35 Pulse Rate 79 02/25/19 06:35 Respiratory Rate 19 02/25/19 02:31 Blood Pressure 119/78 02/25/19 06:35 O2 Sat by Pulse Oximetry (%) 98 02/25/19 06:35 Constitutional: Yes: Well Nourished, No Distress, Calm Eyes: Yes: WNL, Conjunctiva Clear, EOM Intact HENT: Yes: WNL, Atraumatic, Normocephalic Neck: Yes: WNL, Supple, Trachea Midline Cardiovascular: Yes: WNL, Regular Rate and Rhythm Respiratory: Yes: WNL, Regular, CTA Bilaterally Gastrointestinal: Yes: WNL, Normal Bowel Sounds, Soft, Abdomen, Obese, Hernia, Other (Ileal conduit functioning). No: Palpable Mass, Pulsatile Mass, Rectal Bleeding, Tenderness, Vomiting ...Rectal Exam: Yes: Deferred Musculoskeletal: Yes: WNL Extremities: Yes: WNL Edema: No Peripheral Pulses WNL: Yes Neurological: Yes: WNL, Alert, Oriented ...Motor Strength: WNL Psychiatric: Yes: WNL, Alert, Oriented Labs: CBC, BMP 02/25/19 03:37 02/25/19 03:37 Imaging - Results Cat Scan: Report Reviewed, Image Reviewed Problem List - Problems (1) Abdominal pain Assessment/Plan: 43yo patient with multiple medical problems admitted with diffuse lower abd pain x 3 days. 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 CT scan identified an umbilical hernia (reducible). Continue medical management. Instructed to f/u w/ Dr. Shaffer as out-patient should she decide she wants to repair the umbilical hernia electively. Above plan discussed with Dr. Shaffer and agrees. On behalf of Dr. Shaffer, thank you for the opportunity to participate in your patient's care. Code(s): R10.9 - UNSPECIFIED ABDOMINAL PAIN Qualifiers: Abdominal location: lower abdomen, unspecified Qualified Code(s): R10.30 - Lower abdominal pain, unspecified (2) CKD (chronic kidney disease) Code(s): N18.9 - CHRONIC KIDNEY DISEASE, UNSPECIFIED Qualifiers: Chronic kidney disease stage: unspecified stage Qualified Code(s): N18.9 - Chronic kidney disease, unspecified (3) Abdominal hernia Code(s): K46.9 - UNSPECIFIED ABDOMINAL HERNIA WITHOUT OBSTRUCTION OR GANGRENE (4) Obesity Code(s): E66.9 - OBESITY, UNSPECIFIED Qualifiers: Obesity type: due to excess calories Obesity classification: adult class 2 (BMI 35 - 39.9) Serious obesity comorbidity presence: without serious comorbidity Body mass index: BMI 35.0-35.9 Qualified Code(s): E66.09 - Other obesity due to excess calories; Z68.35 - Body mass index (BMI) 35.0-35.9, adult (5) S/P ileal conduit Code(s): Z93.6 - OTHER ARTIFICIAL OPENINGS OF URINARY TRACT STATUS Visit type - Emergency Visit Emergency Visit: Yes ED Registration Date: 02/25/19 Care time: The patient presented to the Emergency Department on the above date and was hospitalized for further evaluation of their emergent condition. - New Patient This patient is new to me today: Yes Date on this admission: 02/25/19 - Critical Care Critical Care patient: No
--- NOTE | 2019-02-25 12:51 | HP ---
CHIEF COMPLAINT: "MY STOMACH HURTS" PCP: Roge Uro: Jonathan HISTORY OF PRESENT ILLNESS: This is a 43 yo F with PMH of COPD, Endometriosis, CKD (due to endometriosis with urostomy), chronic ESBL urinary colonization- treated with ertapenem 1 mo ago, now presenting to ED with lower abdominal pain x3 days, with mild hematochezia, diarrhea, po intolerance to solids with vomiting. Pain is in b/l lower quadrants L>R, nonradiating /10, alleviated by lying down and aggravated by BM and walking. She has similar pain less severe in intensity in the past. She reports 3 episodes of brown diarrhea /day with drops of bright red blood, which has never happened before. Last meal was yesterday pm wit last episode of nbnb vomiting. has tolerated some PO liquids since then. Denies nausea, f/c, malaise, cp, sob, cough, h/a, flank pain. Last abx use 3w ago. Currently menstruating, on the 2nd week, denies excessive vaginal bleeding. Ps abd surgeries include urostomy due to endometriosis and ovarian cyst removal 15 yrs ago. ER course was notable for: (1)ct abd (2)rocephin, morphine, IVF Recent Travel: denies PAST MEDICAL HISTORY: as above PAST SURGICAL HISTORY: as above Social History: Smoking: quit 2w ago Alcohol: denies Drugs: denies Family History: denies abd illness, ca Allergies NKDA No Known Allergies Allergy (Verified 02/25/19 04:38) HOME MEDICATIONS: Home Medications Medication Instructions Recorded Budesonide/Formeterol Fumarate 2 puff IH BID inhaler 11/09/18 [SYMBICORT 80/4.5mcg -] Acetaminophen [Tylenol .Regular 650 mg PO Q6H PRN tablet 12/07/18 Strength -] REVIEW OF SYSTEMS CONSTITUTIONAL: Absent: fever, chills HEENT: Absent: rhinorrhea, nasal congestion, throat pain CARDIOVASCULAR: Absent: chest pain, syncope, palpitations, peripheral edema RESPIRATORY: Absent: cough, shortness of breath, orthopnea GASTROINTESTINAL: Absent: constipation, melena GENITOURINARY: Absent: dysuria, hematuria, flank pain MUSCULOSKELETAL: Absent: myalgia, arthralgia SKIN: Absent: rash, itching, pallor HEMATOLOGIC/IMMUNOLOGIC: Absent: easy bleeding, easy bruising ENDOCRINE: Absent: unexplained weight gain, unexplained weight loss, heat intolerance, cold intolerance NEUROLOGIC: Absent: headache, focal weakness or paresthesias PSYCHIATRIC: Absent: anxiety, depression PHYSICAL EXAMINATION Vital Signs - 24 hr 02/25/19 02/25/19 02:31 06:35 Temperature 98.4 F 97.7 F Pulse Rate 85 Pulse Rate [ 79 Left Radial] Respiratory 19 Rate Blood Pressure 123/78 Blood Pressure 119/78 [Left Arm] O2 Sat by Pulse 98 98 Oximetry (%) GENERAL: Awake, alert, and fully oriented, in mild distress. HEAD: Normal with no signs of trauma. EYES: Pupils equal, round and reactive to light, extraocular movements intact, sclera anicteric, conjunctiva clear. EARS, NOSE, THROAT: Moist mucous membranes. NECK: supple without lymphadenopathy, JVD, or masses. LUNGS: Breath sounds equal, clear to auscultation bilaterally. No wheezes, and no crackles. No accessory muscle use. HEART: Regular rate and rhythm, normal S1 and S2 without murmur, rub or gallop. ABDOMEN: tender in RLQ>LLQ, soft, no rebound, slightly reduced bowel sounds globally, rectal exam done by ED, nonpainful, brown stool. urostomy bad clear urine. MUSCULOSKELETAL: No CVA tenderness. UPPER EXTREMITIES: 2+ pulses, warm, well-perfused. No cyanosis. No clubbing. No peripheral edema. LOWER EXTREMITIES: 2+ pulses, warm, well-perfused. No calf tenderness. No peripheral edema. NEUROLOGICAL: Cranial nerves II-XII intact. Normal speech. muscle strength 5/5 in all extremities, sensation intact PSYCHIATRIC: Cooperative. Good eye contact. Appropriate mood and affect. SKIN: Warm, dry Laboratory Results - last 24 hr 02/25/19 02/25/19 02/25/19 03:37 03:37 03:37 WBC 8.8 RBC 4.36 Hgb 13.3 Hct 39.4 MCV 90.2 MCH 30.6 MCHC 33.9 RDW 14.8 Plt Count 224 MPV 8.8 Absolute Neuts (auto) 5.9 Neutrophils % 66.7 Lymphocytes % 17.5 D Monocytes % 6.4 Eosinophils % 9.0 H Basophils % 0.4 Nucleated RBC % 0 PT with INR 11.00 INR 0.93 PTT (Actin FS) 32.6 Sodium 141 Potassium 4.7 Chloride 112 H Carbon Dioxide 20 L Anion Gap 8 BUN 21 H Creatinine 1.8 H Creat Clearance w eGFR 30.57 Random Glucose 89 Lactic Acid Calcium 8.8 Total Bilirubin 0.3 AST 30 ALT 18 Alkaline Phosphatase 73 Total Protein 7.2 Albumin 3.3 L Lipase 213 Urine Color Urine Appearance Urine pH Ur Specific [place] Urine Protein Urine Glucose (UA) Urine Ketones Urine Blood Urine Nitrite Urine Bilirubin Urine Urobilinogen Ur Leukocyte Esterase Urine WBC (Auto) Urine RBC (Auto) Urine Casts (Auto) U Pathogenic Cast Auto U Epithel Cells (Auto) Urine Bacteria (Auto) Urine HCG, Qual Stool Occult Blood 02/25/19 02/25/19 02/25/19 03:37 03:37 03:41 WBC RBC Hgb Hct MCV MCH MCHC RDW Plt Count MPV Absolute Neuts (auto) Neutrophils % Lymphocytes % Monocytes % Eosinophils % Basophils % Nucleated RBC % PT with INR INR PTT (Actin FS) Sodium Potassium Chloride Carbon Dioxide Anion Gap BUN Creatinine Creat Clearance w eGFR Random Glucose Lactic Acid 0.8 Calcium Total Bilirubin AST ALT Alkaline Phosphatase Total Protein Albumin Lipase 204 Urine Color Urine Appearance Urine pH Ur Specific [place] Urine Protein Urine Glucose (UA) Urine Ketones Urine Blood Urine Nitrite Urine Bilirubin Urine Urobilinogen Ur Leukocyte Esterase Urine WBC (Auto) Urine RBC (Auto) Urine Casts (Auto) U Pathogenic Cast Auto U Epithel Cells (Auto) Urine Bacteria (Auto) Urine HCG, Qual Stool Occult Blood Negative 02/25/19 02/25/19 04:00 04:00 WBC RBC Hgb Hct MCV MCH MCHC RDW Plt Count MPV Absolute Neuts (auto) Neutrophils % Lymphocytes % Monocytes % Eosinophils % Basophils % Nucleated RBC % PT with INR INR PTT (Actin FS) Sodium Potassium Chloride Carbon Dioxide Anion Gap BUN Creatinine Creat Clearance w eGFR Random Glucose Lactic Acid Calcium Total Bilirubin AST ALT Alkaline Phosphatase Total Protein Albumin Lipase Urine Color Yellow Urine Appearance Cloudy Urine pH 6.5 Ur Specific [place] 1.011 Urine Protein 2+ H Urine Glucose (UA) Negative Urine Ketones Negative Urine Blood 1+ H Urine Nitrite Positive H Urine Bilirubin Negative Urine Urobilinogen 0.2 Ur Leukocyte Esterase 3+ H Urine WBC (Auto) 79 Urine RBC (Auto) 5 Urine Casts (Auto) 45 U Pathogenic Cast Auto Review A* U Epithel Cells (Auto) 2.3 Urine Bacteria (Auto) 6083.7 Urine HCG, Qual Negative Stool Occult Blood CT: 1. Cholelithiasis in the gallbladder neck most likely associated with gallbladder dysmotility may be associated with chronic cholecystitis 2. Right kidney nonobstructing nephrolithiasis. 3. Moderate bilateral hydronephrosis and hydroureter with the right and left ureters are diverted into a right lower quadrant neobladder with a ostomy in the right lower quadrant. 4. Small hiatal hernia with mild nonspecific irregular lower esophageal wall thickening at the esophagogastric junction may be due to acute esophagitis or chronic reflux esophagitis and Chapin's esophagitis cannot be excluded 5. Small periumbilical hernia of small bowel with mild dilation may be due to incarceration with partial small bowel obstruction. 6. Constipation with diverticulosis without diverticulitis. 7. Nonspecific complex right posterior pelvic heterogeneous 8.5 x 8.1 x 7.2 cm complex cystic process may be associated with endometriosis. Findings similar to CT done December 2018. ASSESSMENT/PLAN: This is a 43 yo F with PMH of COPD, Endometriosis, CKD (due to endometriosis with urostomy), chronic ESBL urinary colonization- treated with ertapenem 1 mo ago, now presenting to ED with lower abdominal pain x3 days, with mild hematochezia, diarrhea, po intolerance to solids with vomiting. Abdominal pain Diarrhea Hematochezia Vomiting UTI CKD COPD -no sepsis criteria, no leukocytosis -given current menstruating may be due to endometriosis/ stable mass seen on CT -blood in stool likely menstrual blood-stool occult blood negative -diarrhea possibly related to menstrual cycle; f/u ova parasites, esbl -urine chronically dirty, doubt active UTI, was on ertapenem for ESBL last month. f/u cultures, f/u ID -Creat at baseline, bun slightly elevated consistent with vol contraction -IV hydration, IV tylenol for pain -ct abd appreciated, no significant changes from past Visit type - Emergency Visit Emergency Visit: Yes ED Registration Date: 02/25/19 Care time: The patient presented to the Emergency Department on the above date and was hospitalized for further evaluation of their emergent condition. - New Patient This patient is new to me today: Yes Date on this admission: 02/25/19 - Critical Care Critical Care patient: No
[2019-02-25] MEDS: BUDESONIDE/FORMETEROL FUMARATE 80/4.5 mcg INHALER IH SCH ×2 (14:40→22:18)
--- NOTE | 2019-02-25 15:29 | EKG ---
Test Reason : Blood Pressure : / mmHG Vent. Rate : 062 BPM Atrial Rate : 062 BPM P-R Int : 152 ms QRS Dur : 080 ms QT Int : 416 ms P-R-T Axes : 030 020 028 degrees QTc Int : 422 ms NORMAL SINUS RHYTHM SEPTAL INFARCT (CITED ON OR BEFORE 05-DEC-2018) ABNORMAL ECG WHEN COMPARED WITH ECG OF 05-DEC-2018 06:04, NO SIGNIFICANT CHANGE WAS FOUND Confirmed by HARPREET WOODS, JULIET ([id number]) on 02/25/2019 3:29:28 PM Referred By: Confirmed By:JULIET MULLINS MD
[2019-02-25 16:29] VITALS: BMI 37.0
--- NOTE | 2019-02-25 16:44 | PN ---
Progress Note (short form) - Note Progress Note: ID CONSULT DICTATED ABDOMINAL PAIN SYNDROME PROBABLE URINARY TRACT COLONIZATION OBSERVE OFF ANTIBIOTICS
--- NOTE | 2019-02-25 19:24 | CONS ---
DATE OF CONSULTATION: DATE OF DICTATION: 02/25/2019 INFECTIOUS DISEASE CONSULTATION HISTORY OF PRESENT ILLNESS: The patient is a 43-year-old female with a history of endometriosis, history of ileal conduit 2006, now evaluated for positive urine culture. Patient suffers from endometriosis and has had recurrent episodes of abdominal pain. She now presents with 3-day history of worsening bilateral lower abdominal pain associated with nausea, vomiting, and diarrhea. Symptoms occurred at the end of her menstrual period. A CAT scan of the abdomen and pelvis was performed and showed umbilical hernia, moderate hydronephrosis bilaterally and ileal conduit. She was also noted to have an ovarian cyst. Urinalysis showed 79 white cells. Urine culture is pending. PAST MEDICAL HISTORY: Positive for endometriosis which at one point involved the urinary bladder resulting in the creation of an ileal conduit in 2006, history of recurrent urinary tract infections, COPD, chronic kidney disease, history of recent soft tissue infection of the back with positive wound culture for MRSA. ALLERGIES: No known allergies. MEDICATION: Includes Symbicort, Ventolin, ceftriaxone. SOCIAL HISTORY: Positive for tobacco use. SYSTEMS REVIEW: Neurologic: No loss of consciousness, seizure activity, focal weakness. Cardiac: Negative for chest pain or palpitations. Respiratory: Negative for cough or sputum production. Gastrointestinal: As per HPI. Genitourinary: As per HPI. LABORATORY DATA: White count 8.8, hematocrit 39.4, platelet count 224. BUN 21, creatinine 1.8. Urinalysis 79 white cells. Urine culture is pending. Previous cultures have been positive for MRSA from skin, ESBL from urine in December of 2018. PHYSICAL EXAMINATION: General: On exam, she is awake, in no acute distress. She is not acutely toxic appearing, obese. Vital signs: Temperature 97.7, blood pressure 125/60, pulse 80 regular, respirations 16 per minute. HEENT: Sclerae anicteric. Cardiovascular: Heart sounds S1, S2. Lungs: Clear bilaterally. Abdomen: Obese, soft, no tenderness elicited. No suprapubic or flank tenderness. An ileostomy is in place. Urine is slightly cloudy. Extremities: Negative for edema. IMPRESSION: 1. Abdominal pain syndrome unclear etiology, possibly secondary to known endometriosis. 2. Probable urinary tract colonization. Patient is clinically improved. She is pain free at the present time. She is afebrile with a normal white blood cell count. Suspect any bacteria that will grow on urine culture represents contamination or colonization. Would observe off antibiotic therapy. Contact precautions. Thank you for the kind referral. STACIA OLIVER M.D. MARVIN/[id number]
[2019-02-26] MEDS ORDERED: MELATONIN 5 MG TABLETS PO ONE (00:07)
[2019-02-26 06:13] LABS: BASO % 0.3 % (0-2.0); EOS % 7.7 % (0-4.5); HEMATOCRIT 37.4 % (32.4-45.2); HEMOGLOBIN 12.8 GM/dL (10.7-15.3); LYMPH % 10.8 % (8-40); MCH 30.7 pg (25.7-33.7); MCHC 34.2 g/dl (32.0-36.0); MEAN CELL VOLUME 89.5 fl (80-96); MEAN PLT VOLUME 8.9 fl (7.5-11.1); MONO % 6.5 % (3.8-10.2); NEUT % 74.7 % (42.8-82.8); PLATELET COUNT 215 K/MM3 (134-434); RBC 4.18 M/mm3 (3.60-5.2); RDW 14.7 % (11.6-15.6); WHITE BLOOD COUNT 9.3 K/mm3 (4.0-10.0)
[2019-02-26 06:40] LABS: ALBUMIN 2.8 g/dl (3.4-5.0); ALK PHOS 70 U/L (45-117); ANION GAP 6 MMOL/L (8-16); BILIRUBIN,TOTAL 0.4 mg/dL (0.2-1); BLOOD UREA NITROGEN 16 mg/dL (7-18); CALCIUM 8.5 mg/dL (8.5-10.1); CHLORIDE 112 mmol/L (98-107); CO2 21 mmol/L (21-32); CREATININE 1.5 mg/dL (0.55-1.3); GLUCOSE,RANDOM 85 mg/dL (74-106); MAGNESIUM 1.8 mg/dL (1.8-2.4); SGOT/AST 13 U/L (15-37); SGPT/ALT 15 U/L (13-61); SODIUM 140 mmol/L (136-145); TOT PROT 6.4 g/dl (6.4-8.2)
[2019-02-26] MEDS ORDERED: MORPHINE SULFATE 2 MG/ML VIAL IVPUSH ONE (08:02)
[2019-02-26 10:11] LABS: COCAINE, UR NEGATIVE ng/ml (CUTOFF=300); METHADONE, UR NEGATIVE ng/ml (CUTOFF=300); OPIATES, URI NEGATIVE ng/ml (CUTOFF=300); PHENCYCLIDINE,URINE NEGATIVE ng/ml (CUTOFF=25); URINE AMPHETAMINES NEGATIVE ng/ml (CUTOFF=500); URINE BARBITURATES NEGATIVE ng/ml (CUTOFF=200); URINE BENZODIAZEPINES NEGATIVE ng/ml (CUTOFF=200)
[2019-02-26] MEDS: BUDESONIDE/FORMETEROL FUMARATE 80/4.5 mcg INHALER IH SCH (10:35)
[2019-02-26] MEDS: SODIUM CHLORIDE 1,000 ML IV SCH (10:36)
[2019-02-26] MEDS: ACETAMINOPHEN 1000 MG/100 ML VIAL (NON FORMULARY) IVPB PRN (13:55)
--- NOTE | 2019-02-26 15:56 | PN ---
Teaching Attending Note Name of Resident: Indy James ATTENDING PHYSICIAN STATEMENT I saw and evaluated the patient. I reviewed the resident's note and discussed the case with the resident. I agree with the resident's findings and plan as documented. SUBJECTIVE: No fever or chills. complains of severe pain but was sleeping comfortably when Md arrived. no diarrhea , no N/V . OBJECTIVE: NAD. awake, alert. MMM CV: RRR, no MRG, no JVD Lungs: CTAB Abd: soft, Nd, TTP in LLQ, RLQ, , with no rebound tenderness or guarding. ileal conduit with yellow clear urine. Ext: No edema or erythema. 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 1- Abd pain, N/V: ? viral gastroenteritis . no other etiology found. TVUS and KUB reviewed. - Regular diet - Refusing tylenol for pain and wants something else. avoid narcotics and NSIADs ( reported GI bleed ) 2- Questionable hematochezia: blood in stool could be due to contamination form her period. neg OB - hold off any further GI w/u at this point unless significant re-bleed or drop in Hb - Hold NSaids - f/u with GI as out pt 3- H/o Asthma, cont symbicort and Albuterol inhaler 4- CKd : stable cr at base line. cont to monitor 5- Recent wound infeection on back. no signs of infection on or around the wound. off Abx 6- pyuria and bacteruria: colonization . no ABx 7- DVT PX : SCDs will dc when her pain symptoms improve
--- NOTE | 2019-02-26 16:08 | PN ---
Physical Exam: SUBJECTIVE: Patient seen and examined this AM. Complained of vomiting overnight due to IV Acetaminophen. Additionally received melatonin overnight. Patient was complaining of severe lower abdominal pain after having a nonbloody BM this AM. Denies associated fevers, chills, nausea, vomiting, diarrhea, constipation. OBJECTIVE: Vital Signs Period Temp Pulse Resp BP Sys/Minor Pulse Ox Last 24 Hr 98 F-99.2 F 69-84 16-18 130-156/69-94 96 GENERAL: A&Ox3, Mild Distress HEAD: NCAT EYES: PERRL, EOMI ENT: Moist mucous membranes NECK: Supple, no JVD LUNGS: Clear to auscultation bilaterally, no wheezes, no crackles HEART: Regular rate and rhythm, S1, S2 without murmur ABDOMEN: Soft, B/L Lower quadrant tenderness worse with deep palpation, nondistended, + bowel sounds, no guarding, no rebound, Urostomy bag intact with yellow urine EXTREMITIES: no edema. NEUROLOGICAL: Cranial nerves II through XII grossly intact. Normal speech. Gross sensation intact throughout. 5/5 muscle strength globally SKIN: Warm, dry Laboratory Results - last 24 hr 02/26/19 02/26/19 02/26/19 05:10 05:10 08:30 WBC 9.3 RBC 4.18 Hgb 12.8 Hct 37.4 MCV 89.5 MCH 30.7 MCHC 34.2 RDW 14.7 Plt Count 215 MPV 8.9 Absolute Neuts (auto) 6.9 Neutrophils % 74.7 Lymphocytes % 10.8 D Monocytes % 6.5 Eosinophils % 7.7 H Basophils % 0.3 Nucleated RBC % 0 Sodium 140 Potassium 4.0 Chloride 112 H Carbon Dioxide 21 Anion Gap 6 L BUN 16 Creatinine 1.5 H Creat Clearance w eGFR 37.72 Random Glucose 85 Calcium 8.5 Phosphorus 3.0 Magnesium 1.8 Total Bilirubin 0.4 AST 13 L ALT 15 Alkaline Phosphatase 70 Total Protein 6.4 Albumin 2.8 L Opiates Screen Negative Methadone Screen Negative Barbiturate Screen Negative Phencyclidine Screen Negative Ur Amphetamines Screen Negative MDMA (Ecstasy) Screen Negative Benzodiazepines Screen Negative Cocaine Screen Negative U Marijuana (THC) Screen Positive A* Microbiology 02/25/19 04:00 Urine - Urine - Catheterized Urine Culture - Preliminary Lactose Fermenting Neg Bacilli Group D Strep Or Entero Coccus Active Medications Acetaminophen (Ofirmev Injection -) 1,000 mg IVPB Q6H PRN PRN Reason: PAIN Last Admin: 02/26/19 13:55 Dose: 1,000 mg Albuterol Sulfate (Ventolin Hfa Inhaler -) 2 puff IH Q4H PRN PRN Reason: SHORT OF BREATH/WHEEZING Budesonide/Formoterol Fumarate (Symbicort 80/4.5mcg -) 2 puff IH BID [facility] Last Admin: 02/26/19 10:35 Dose: 2 puff Sodium Chloride (Normal Saline -) 1,000 mls @ 100 mls/hr IV ASDIR PATRICK Last Admin: 02/26/19 10:36 Dose: 100 mls/hr IMAGING: -CT A/P without contrast: S/P cystectomy with right lower quadrant ileal conduit. There is a mild degree of bilateral hydronephrosis, right greater than left. The kidneys are somewhat atrophic. Right nephrolithiasis with no evidence of obstructive uropathy. Umbilical hernia. Large presacral cyst possibly ovarian in etiology. Clinical correlation and follow-up recommended. -TVUS: Small uterine fibroid and large right ovarian cyst. Limited study as described above. -KUB: 2 views of the abdomen reveal a right-sided ostomy site or a known cystectomy with right lower quadrant ileal conduit, left abdominal pelvic clips , retained stool but no sign of an obstruction, free air or pneumatosis. Organomegaly or calcifications of significance are not seen. Correlation recommended. -EKG: NSR, VR 62, QTc 422 ASSESSMENT/PLAN: 43 y/o F with PMHx of COPD, Endometriosis, CKD, s/p ileal conduit with urostomy , chronic ESBL urinary colonization (Recently treated with ertapenem) is admitted for Abdominal pain with diarrhea and vomiting. #Abdominal pain -Unclear etiology--Still consider Viral gastroenteritis; Less likely UTI, No evidence of obstruction, diverticulitis -Diarrhea, Vomiting have resolved -Imaging noted above -Continue supportive tx with Acetaminophen, IVF -Avoid NSAIDs as patient has questionable Hematochezia -Check C. Diff given diarrhea -Advance diet to Regular -General Surgery (Dr. Shaffer) consulted, appreciate rec's -Would benefit from outpatient GI f/u #Eosinophila -In the setting of ?Asthma -Given Abdominal sx, will check Stongiloides IgG, Ova and parasites #Marijuana use -Utox positive -Counselled on cessation as marijuana use can also induce vomiting #Hx of chronic ESBL urinary colonization -Recently treated with ertapenem -Urine Cx growth noted above -Contact precautions -Monitor off ABx as patient does not meet sepsis criteria at this time -ID (Dr. Dailey) Consulted, appreciate rec's #Hx of COPD -Continue Albuterol Sulfate 2 puff IH Q4H PRN, Budesonide/Formoterol 80/4.5mcg 2 puff IH BID #Hx of Endometriosis, s/p ileal conduit with urostomy -OBGyn (Dr. Bender) consulted, appreciate rec's -Urology (Dr. Castillo) consulted #Hx of CKD -Cr Stable, Continue IV NS @ 100 mls/hr #FEN -NS @ 100 mls/hr -Lytes WNL -Low sodium diet #PPx -DVT: SCDs Dispo: Obs
[2019-02-26 17:18] VITALS: BP 125/78; PULSE 78; TEMP 98.4
--- NOTE | 2019-02-26 17:56 | DS ---
Physical Exam: SUBJECTIVE: Patient seen and examined this AM. Complained of severe lower quadrant pain however was resting comfortably. No acute overnight events as per nursing. Denies associated fevers, chills, nausea, vomiting, diarrhea, constipation. OBJECTIVE: Vital Signs Period Temp Pulse Resp BP Sys/Minor Pulse Ox Last 24 Hr 98 F-99.2 F 70-84 16-20 125-156/71-94 96 PHYSICAL EXAM GENERAL: A&Ox3, Mild Distress HEAD: NCAT EYES: PERRL, EOMI ENT: Moist mucous membranes NECK: Supple, no JVD LUNGS: Clear to auscultation bilaterally, no wheezes, no crackles HEART: Regular rate and rhythm, S1, S2 without murmur ABDOMEN: Soft, B/L Lower quadrant tenderness worse with deep palpation, nondistended, + bowel sounds, no guarding, no rebound, Urostomy bag intact with yellow urine EXTREMITIES: no edema. NEUROLOGICAL: Cranial nerves II through XII grossly intact. Normal speech. Gross sensation intact throughout. 5/5 muscle strength globally SKIN: Warm, dry LABS Laboratory Results - last 24 hr 02/26/19 02/26/19 02/26/19 05:10 05:10 08:30 WBC 9.3 RBC 4.18 Hgb 12.8 Hct 37.4 MCV 89.5 MCH 30.7 MCHC 34.2 RDW 14.7 Plt Count 215 MPV 8.9 Absolute Neuts (auto) 6.9 Neutrophils % 74.7 Lymphocytes % 10.8 D Monocytes % 6.5 Eosinophils % 7.7 H Basophils % 0.3 Nucleated RBC % 0 Sodium 140 Potassium 4.0 Chloride 112 H Carbon Dioxide 21 Anion Gap 6 L BUN 16 Creatinine 1.5 H Creat Clearance w eGFR 37.72 Random Glucose 85 Calcium 8.5 Phosphorus 3.0 Magnesium 1.8 Total Bilirubin 0.4 AST 13 L ALT 15 Alkaline Phosphatase 70 Total Protein 6.4 Albumin 2.8 L Opiates Screen Negative Methadone Screen Negative Barbiturate Screen Negative Phencyclidine Screen Negative Ur Amphetamines Screen Negative MDMA (Ecstasy) Screen Negative Benzodiazepines Screen Negative Cocaine Screen Negative U Marijuana (THC) Screen Positive A* Microbiology 02/25/19 04:00 Urine - Urine - Catheterized Urine Culture - Preliminary Lactose Fermenting Neg Bacilli Group D Strep Or Entero Coccus IMAGING: -CT A/P without contrast: S/P cystectomy with right lower quadrant ileal conduit. There is a mild degree of bilateral hydronephrosis, right greater than left. The kidneys are somewhat atrophic. Right nephrolithiasis with no evidence of obstructive uropathy. Umbilical hernia. Large presacral cyst possibly ovarian in etiology. Clinical correlation and follow-up recommended. -TVUS: Small uterine fibroid and large right ovarian cyst. Limited study as described above. -KUB: 2 views of the abdomen reveal a right-sided ostomy site or a known cystectomy with right lower quadrant ileal conduit, left abdominal pelvic clips , retained stool but no sign of an obstruction, free air or pneumatosis. Organomegaly or calcifications of significance are not seen. Correlation recommended. -EKG: NSR, VR 62, QTc 422 HOSPITAL COURSE: Date of Admission:02/25/19 Date of Discharge: 02/26/19 43 y/o F with PMHx of COPD, Endometriosis, CKD, s/p ileal conduit with urostomy , chronic ESBL urinary colonization (Recently treated with ertapenem) was admitted for Abdominal pain with diarrhea and vomiting. Imaging was done noted above. Patient was treated with supportive measures including IVF and acetaminophen; Her Diarrhea and vomitting resolved. Her diet was advanced and patient tolerated it well. Her Urine cx is noted above; ID was consulted and patient was observed off of ABx. Additionally, General Surgery, OBGyn were consulted. Patients UTox was positive for Marijuana and she was counselled on cessation. Patient was discharged home with strict instructions for NSAID avoidance, follow up and marijuana cessation. Minutes to complete discharge: 36 Discharge Summary Reason For Visit: UTI CYST OF OVARY ABDOMINAL PAIN Current Active Problems Abdominal pain (Acute) Lower abdominal pain (Acute) Nausea & vomiting (Acute) Abdominal hernia (Chronic) Marijuana abuse, continuous (Chronic) Ovarian cyst (Chronic) S/P ileal conduit (Chronic) Condition: Improved - Instructions Diet, Activity, Other Instructions: You presented to the hospital for Abdominal pain and vomiting. Your symptoms have improved. Medication Changes: 1. DO NOT take NSAIDS (Ibproufen, aleve, advil etc) as these can worsen bleeding Follow up with the following physicians: 1. PCP in one week 2. Please schedule an appointment with OBGyn (Dr. Bender)to further manage your endometriosis. 3. Please follow up with Urology (Dr. Castillo) to further manage your Urostomy 4. Please follow up with your [employer] 5. Please follow up with Gastroenterology to further manage your vomiting and abdominal pain Please avoid Marijuana use as this can further worsen vomiting Please continue to monitor your diet as you need to intake less sugar and drink plenty of fluids. Continue all your other medications as prescribed Please return to the ER if you have any signs or symptoms of chest pain, shortness of breath, uncontrollable fever, chills, nausea, vomiting, numbness, tingling, or weakness in any part of your body, changes in vision, or slurred speech. Please return to the ER if symptoms persist, worsen, or new symptoms arise. Referrals: Joseph Bowers DO [Staff Physician] - Carol Arzate MD [Staff Physician] - Vicki Guan DO [Non Staff, Medical] - Rayne Castillo MD [Staff Physician] - Disposition: HOME - Home Medications Comprehensive Discharge Medication List: Ambulatory Orders Budesonide/Formeterol Fumarate [SYMBICORT 80/4.5mcg -] 2 puff IH BID inhaler Oxycodone HCl 30 mg PO Q6H PRN 02/26/19 This patient is new to me today: No Emergency Visit: Yes ED Registration Date: 02/25/19 Care time: The patient presented to the Emergency Department on the above date and was hospitalized for further evaluation of their emergent condition. Critical Care patient: No - Discharge Referral Referred to [facility] Med P.C.: No
== END 2019-02-26 18:30 | disposition home or self-care (01) ==
LOC: JER 02:31 → JERBED 05:52 → J8W 14:38
PROVIDERS: ADMIT Internal Medicine; ATTEND Internal Medicine
PROC: 3E03329 Introduction of Other Anti-infective into Peripheral Vein, Percutaneous Approach (ICD-10-PCS; principal; 2019-02-25)
PROC: 3E0333Z Introduction of Anti-inflammatory into Peripheral Vein, Percutaneous Approach (ICD-10-PCS; 2019-02-25)
PROC: 3E033NZ Introduction of Analgesics, Hypnotics, Sedatives into Peripheral Vein, Percutaneous Approach (ICD-10-PCS; 2019-02-25)
PROC: 3E0337Z Introduction of Electrolytic and Water Balance Substance into Peripheral Vein, Percutaneous Approach (ICD-10-PCS; 2019-02-25)
PROC: 3E0F7GC Introduction of Other Therapeutic Substance into Respiratory Tract, Via Natural or Artificial Opening (ICD-10-PCS; 2019-02-25)
DX: N30.90 Cystitis, unspecified without hematuria (principal); R10.30 Lower abdominal pain, unspecified; N83.201 Unspecified ovarian cyst, right side; N18.9 Chronic kidney disease, unspecified; N80.9 Endometriosis, unspecified; J44.9 Chronic obstructive pulmonary disease, unspecified; F17.210 Nicotine dependence, cigarettes, uncomplicated; Z86.14 Personal history of Methicillin resistant Staphylococcus aureus infection; Z93.6 Other artificial openings of urinary tract status; Z87.442 Personal history of urinary calculi; R11.2 Nausea with vomiting, unspecified; K46.9 Unspecified abdominal hernia without obstruction or gangrene; E66.09 Other obesity due to excess calories; Z68.37 Body mass index [BMI] 37.0-37.9, adult; K80.20 Calculus of gallbladder without cholecystitis without obstruction; N20.0 Calculus of kidney; N13.30 Unspecified hydronephrosis; K44.9 Diaphragmatic hernia without obstruction or gangrene; K57.30 Diverticulosis of large intestine without perforation or abscess without bleeding; K59.00 Constipation, unspecified; K92.1 Melena
CPT/HCPCS: 36415; 74018-TC-FY; 74176-TC; 76830-TC; 80053; 80307; 81003; 82272; 83605; 83690; 83735; 84100; 84703; 85025; 85610; 85730; 87086; 87186; 93005; 93010; 94640; 96361; 96365; 96375; 96376; 99285-25; G0378; J0131; J7030

== ENCOUNTER 2019-04-22 13:10 | Inpatient (IN) | payer OTHER ==
[2019-04-22] MEDS ORDERED: SODIUM CHLORIDE 500 ML IV STA (13:54)
--- NOTE | 2019-04-22 13:54 | PDOC ---
History of Present Illness - General Chief Complaint: Pain, Acute Stated Complaint: CHEST PAIN/ABD PAIN Time Seen by Provider: 04/22/19 13:36 History Source: Patient Exam Limitations: No Limitations - History of Present Illness Initial Comments: 43 yo F w a hx of COPD, Endometriosis, CKD (due to endometriosis with urostomy) presents to the ED with 2 chief complaints. 1) The first is RLQ abdominal pain which has been present and worsening for the past 3 days. She has a chronic urostomy bag in place and states there has been pus draining around the urostomy bag. She also states part of her gut has been protruding from the bag which is irregular for her. She endorses significant suprapubic pain as well but the patient does not urinate. She only produces urine through her urostomy bag. She also endorses BRBPR. 2) The second chief complaint is crushing left sided chest pain which has been occurring for the past 3 days and radiating down her left arm. She denies SOB and says this pain comes on at rest. She took a mainor aspirin for the pain this morning. She denies any history of ID's, excessive diaphoresis, nausea, vomiting or worsening of her pain with physical exertion PCP: Roge Urologist: Jonathan Porter Hx: Denies smoking, drinking, or other substance usage Allergies: NKA, NKDA PSH: Urostomy Past History - Past Medical History Allergies/Adverse Reactions: Allergies Allergy/AdvReac Type Severity Reaction Status Date / Time No Known Allergies Allergy Verified 02/25/19 04:38 Home Medications: Ambulatory Orders Budesonide/Formeterol Fumarate [SYMBICORT 80/4.5mcg -] 2 puff IH BID inhaler Oxycodone HCl 30 mg PO Q6H PRN 02/26/19 Anemia: Yes Asthma: No Cancer: No Cardiac Disorders: No CVA: No COPD: Yes CHF: No Dementia: No Diabetes: No GI Disorders: No Disorders: Yes (Ileal Conduit, H/O KIDNEY STONES) HTN: No Hypercholesterolemia: No Kidney Stones: Yes (kidney failure) Liver Disease: No Seizures: No Thyroid Disease: No - Surgical History Abdominal Surgery: No Appendectomy: No Cardiac Surgery: No Cholecystectomy: No Lung Surgery: No Neurologic Surgery: No Orthopedic Surgery: No - Reproductive History (#): 0 Para: 0 - Immunization History Immunization Up to Date: Yes - Suicide/Smoking/Psychosocial Hx Smoking Status: No Smoking History: Current every day smoker Have you smoked in the past 12 months: Yes Number of Cigarettes Smoked Daily: 2 If you are a former smoker, when did you quit?: 1 Month ago Cigars Per Day: 0 Information on smoking cessation initiated: No 'Breaking Loose' booklet given: 02/25/19 Hx Alcohol Use: No Drug/Substance Use Hx: No Substance Use Type: None Hx Substance Use Treatment: No Review of Systems - Review of Systems Able to Perform ROS?: Yes Comments:: CONSTITUTIONAL: No fever, no chills, no fatigue EYES: No visual changes ENT: No ear pain, no sore throat CARDIOVASCULAR: + chest pain, no palpitations RESPIRATORY: No cough, no SOB GI: + abdominal pain, no nausea, no vomiting, no constipation, no diarrhea GENITOURINARY: No dysuria, no frequency, no hematuria MUSKULOSKELETAL: No backpain, no joint pain, no myalgias SKIN: No rash NEURO: No headache *Physical Exam - Vital Signs Last Vital Signs Temp Pulse Resp BP Pulse Ox 97.7 F 73 18 122/91 100 04/22/19 13:16 04/22/19 13:16 04/22/19 13:16 04/22/19 13:16 04/22/19 13:16 - Physical Exam Comments: CONSTITUTIONAL: Well-appearing; well-nourished; in no apparent distress HEAD: Normocephalic; atraumatic EYES: PERRL; EOM intact ENMT: External appears normal; normal oropharynx NECK: Supple; non-tender; no cervical lymphadenopathy CARD: Normal S1, S2; no murmurs, rubs, or gallops RESP: CTAB. No wheezes, rhonchi, or rales ABD: There is a urostomy bag in place with clear looking urine that looks like it has random pieces of pus inside. There is a small segment of gut sticking out of her urostomy bag. There is RLQ and suprapubic TTP. There are normal bowel sounds. The abdomen is soft and there is no rebound, guarding, or rigidity. no palpable organomegaly, no palpable hernias EXT: Normal ROM in all four extremities; non-tender to palpation; distal pulses intact SKIN: Warm, dry, no rash NEURO: No focal neurological deficiencies. ED Treatment Course - LABORATORY CBC & Chemistry Diagram: 04/22/19 13:58 04/22/19 13:58 Medical Decision Making - Medical Decision Making 43 yo F w a hx of COPD, Endometriosis, CKD (due to endometriosis with urostomy) presents to the ED with 2 chief complaints. 1) The first is RLQ abdominal pain which has been present and worsening for the past 3 days. She has a chronic urostomy bag in place and states there has been pus draining around the urostomy bag. She also states part of her gut has been protruding from the bag which is irregular for her. She endorses significant suprapubic pain as well but the patient does not urinate. She only produces urine through her urostomy bag. She also endorses BRBPR. 2) The second chief complaint is crushing left sided chest pain which has been occurring for the past 3 days and radiating down her left arm. She denies SOB and says this pain comes on at rest. She took a mainor aspirin for the pain this morning. She denies any history of ID's, excessive diaphoresis, nausea, vomiting or worsening of her pain with physical exertion VS: WNL MDM: This patient has multiple medical comorbidities who is presenting with abdominal pain and chest pain. Will attempt to evaluate them separately. Plan: Labs, urine, Heme occult, EKG, CXR, CTAP, analgesia, IV hydration, re- assess. Patient has a raging UTI which has been resistant to all oral Abx in the past - I spoke with Dr. Castillo her urologist who recommends starting ceftriaxone 2G tonight, admitting her to the hospital and having ID evaluate the patient tomorrow. Will Admit for UTI and IV Abx *DC/Admit/Observation/Transfer Diagnosis at time of Disposition: Urinary tract infection - Discharge Dispostion Condition at time of disposition: Stable Decision to Admit order: Yes - Referrals - Patient Instructions - Post Discharge Activity
--- NOTE | 2019-04-22 14:26 | PDOC ---
Documentation entered by Daily Wilson SCRIBE, acting as scribe for Luis Suh MD. Luis Suh MD: This documentation has been prepared by the Steve escoto Collisia, SCRIBE, under my direction and personally reviewed by me in its entirety. I confirm that the documentation accurately reflects all work, treatment, procedures, and medical decision making performed by me. Attending Attestation - Resident Resident Name: Wei Dyer - ED Attending Attestation I have performed the following: I have examined & evaluated the patient, The case was reviewed & discussed with the resident, I agree w/resident's findings & plan, Exceptions are as noted - HPI HPI: 04/22/19 14:26 43-year-old female with history of COPD, endometriosis, chronic kidney disease, urostomy presents with lower abdominal pain for 3 days. The patient reports that the pain is persistent and noted that her stoma has been protruding from her urostomy. She denies any fevers or chills. But does report that she may be having some small amounts of blood in her stool. Patient reports that she's been lately feeling constipated as well. Reports that the pain is persistent but is unsure if there is an infection in her urostomy. No nausea or vomiting. Patient does report several months of intermittent chest pressure. Not always exertional. Denies shortness of breath. Denies chest pain now this moment. Patient denies any previous cardiac history. She does not think she is wheezing. - Physicial Exam PE: 04/22/19 14:28 GENERAL: Awake, alert, and fully oriented, in no acute distress HEAD: No signs of trauma EYES: EOMI, sclera anicteric, conjunctiva clear ENT: Auricles normal inspection, hearing grossly normal, nares patent, Moist mucosa NECK: Normal ROM, supple, LUNGS: Breath sounds equal, clear to auscultation bilaterally. No wheezes, and no crackles HEART: Regular rate and rhythm, normal S1 and S2, no murmurs, rubs or gallops ABDOMEN: +abdominal distension. RLQ urostomy with surrounding tenderness, but no erythema, drainage, fluctuance. Urine in the urostomy bag. Small prolapse appreciated through the urostomy, nontender. No guarding, no rebound. No masses EXTREMITIES: Normal range of motion, no edema. No clubbing or cyanosis. No cords, erythema, or tenderness NEUROLOGICAL: Cranial nerves II through XII grossly intact. Normal speech, SKIN: Warm, Dry, normal turgor, no rashes or lesions noted. - Medical Decision Making 04/22/19 14:28 Vital Signs Temp Pulse Resp BP Pulse Ox 97.7 F 73 18 122/91 100 04/22/19 13:16 04/22/19 13:16 04/22/19 13:16 04/22/19 13:16 04/22/19 13:16 We'll need to further investigate this protrusion from the urostomy. We'll obtain a CAT scan and pelvis to investigate for infection or bowel obstruction. We'll obtain a urine sample to investigate for urine infection of the urostomy. Labs and reassess. She denies chest pain now but has been having several months of this chest discomfort. We'll rule out acute coronary syndrome. EKG, chest x- ray, troponin and reassess. If the workup is unremarkable, the patient may be eligible for 2 troponins and follow-up as an outpatient with cardiology. We'll further investigate the stool in the blood. The patient is straining to move her bowels and this could potentially be hemorrhoids. Reassess. 04/22/19 16:05 CBC, BMP 04/22/19 13:58 04/22/19 13:58 CMP Sodium 140 mmol/L (136-145) 04/22/19 13:58 Potassium 4.6 mmol/L (3.5-5.1) 04/22/19 13:58 Chloride 109 mmol/L (98-107) H 04/22/19 13:58 Carbon Dioxide 25 mmol/L (21-32) 04/22/19 13:58 Anion Gap 6 MMOL/L (8-16) L 04/22/19 13:58 BUN 17 mg/dL (7-18) 04/22/19 13:58 Creatinine 1.9 mg/dL (0.55-1.3) H 04/22/19 13:58 Est GFR (CKD-EPI)AfAm 36.52 04/22/19 13:58 Est GFR (CKD-EPI)NonAf 31.51 04/22/19 13:58 Random Glucose 76 mg/dL (74-106) 04/22/19 13:58 Lactic Acid 1.1 mmol/L (0.4-2.0) 04/22/19 13:58 Calcium 8.6 mg/dL (8.5-10.1) 04/22/19 13:58 Total Bilirubin 0.4 mg/dL (0.2-1) 04/22/19 13:58 AST 33 U/L (15-37) 04/22/19 13:58 ALT 16 U/L (13-61) 04/22/19 13:58 Alkaline Phosphatase 67 U/L (45-117) 04/22/19 13:58 Troponin I < 0.02 ng/ml (0.00-0.05) 04/22/19 13:58 Total Protein 6.7 g/dl (6.4-8.2) 04/22/19 13:58 Albumin 3.1 g/dl (3.4-5.0) L 04/22/19 13:58 Lipase 233 U/L (73-393) 04/22/19 13:58 ECG is stable from prior. If two serial troponins were negative, patient can be followed up with urgent outpatient cardiology followup. Pt signed out to oncoming ED attending Dr. Aranda for further management. Dispo per CT. Heart Score/ECG Review #1 ECG reviewed & interpreted by me at: 13:30 04/22/19 14:33 NSR 65, Q wave V1-V2, no std/gerald, normal axis, normal intervals, QTC 424 msec
[2019-04-22 14:38] LABS: BASO % 0.5 % (0-2.0); EOS % 8.8 % (0-4.5); HEMATOCRIT 39.6 % (32.4-45.2); HEMOGLOBIN 13.5 GM/dL (10.7-15.3); LYMPH % 18.2 % (8-40); MCH 30.1 pg (25.7-33.7); MCHC 34.1 g/dl (32.0-36.0); MEAN CELL VOLUME 88.3 fl (80-96); MEAN PLT VOLUME 9.6 fl (7.5-11.1); MONO % 6.2 % (3.8-10.2); NEUT % 66.3 % (42.8-82.8); PLATELET COUNT 213 K/MM3 (134-434); RBC 4.48 M/mm3 (3.60-5.2); RDW 15.4 % (11.6-15.6); WHITE BLOOD COUNT 5.6 K/mm3 (4.0-10.0)
[2019-04-22 14:49] LABS: INR 0.95 (0.83-1.09); PROTHROMBIN TIME (PATIENT) 11.2 SEC (9.7-13.0)
[2019-04-22 15:07] LABS: ALBUMIN 3.1 g/dl (3.4-5.0); ALK PHOS 67 U/L (45-117); ANION GAP 6 MMOL/L (8-16); BILIRUBIN,TOTAL 0.4 mg/dL (0.2-1); BLOOD UREA NITROGEN 17 mg/dL (7-18); CALCIUM 8.6 mg/dL (8.5-10.1); CHLORIDE 109 mmol/L (98-107); CO2 25 mmol/L (21-32); CREATININE 1.9 mg/dL (0.55-1.3); GLUCOSE,RANDOM 76 mg/dL (74-106); LIPASE 233 U/L (73-393); POTASSIUM 4.6 mmol/L (3.5-5.1); SGOT/AST 33 U/L (15-37); SGPT/ALT 16 U/L (13-61); SODIUM 140 mmol/L (136-145); TOT PROT 6.7 g/dl (6.4-8.2)
[2019-04-22] MEDS ORDERED: morphine CARPU-JECT 4 MG/1 ML DISP.SYRIN IVPUSH ONE ×2 (15:18→19:52)
[2019-04-22] MEDS ORDERED: morphine SULFATE 4 MG/ML VIAL ONE ×2 (15:18→20:06)
[2019-04-22 16:27] LABS: HCG,QUALITATIVE URINE Negative
[2019-04-22 16:35] LABS: EPI CELLS 3.1 /HPF (0-5/HPF); HYALINE CASTS 83 /lpf (0-8); URINE APPEARANCE CLOUDY; URINE BACTERIA 6106.2 /hpf (NEGATIVE); URINE BILIRUBIN NEGATIVE (NEGATIVE); URINE COLOR YELLOW; URINE GLUCOSE (UA) NEGATIVE (NEGATIVE); URINE KETONE NEGATIVE (NEGATIVE); URINE LEUK ESTERASE 3+ (NEGATIVE); URINE NITRITE POSITIVE (NEGATIVE); URINE PROTEIN 2+ (NEGATIVE); URINE RBC 7 /hpf (0-4); URINE UROBILINOGEN 0.2 mg/dL (0.2-1.0); URINE WBC 82 /hpf (0-5)
[2019-04-22] MEDS ORDERED: CEFTRIAXONE 1,000 MG in DEXTROSE 5%-WATER - 50 ML IVPB ONE (18:56)
[2019-04-22] MEDS ORDERED: CEFTRIAXONE 1 GM/50 ML BAG ONE ×2 (18:57→19:37)
--- NOTE | 2019-04-22 20:18 | HP ---
Admitting History and Physical - Primary Care Physician PCP: Emil Penaloza - Admission History of Present Illness: 43-year-old female with history of COPD, endometriosis, chronic kidney disease, urostomy presents with lower abdominal pain for 3 days. The patient reports that the pain is persistent and noted that her stoma has been protruding from her urostomy. She denies any fevers or chills. But does report that she may be having some small amounts of blood in her stool. Patient reports that she's been lately feeling constipated as well. Reports that the pain is persistent but is unsure if there is an infection in her urostomy. No nausea or vomiting. Patient does report several months of intermittent chest pressure. Not always exertional. Denies shortness of breath. Denies chest pain now this moment. Patient denies any previous cardiac history. She does not think she is wheezing. 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 [facility]), Renal Calculi, UTI, Other ( ileal conduit) ...LMP: 02/11/19 Heme/Onc: Yes: Anemia Infectious Disease: Yes: MRSA, Other (ESBL) Psych: Yes: Anxiety, Depression Endocrine: Yes: Other (prior abnormal TFTs) Dermatology: Yes: Other (hidradenitis) - Past Surgical History Past Surgical History: Yes: Cystectomy, Ileal Conduit - Smoking History Smoking history: Current every day smoker Have you smoked in the past 12 months: Yes Aproximately how many cigarettes per day: 2 If you are a former smoker, when did you quit?: 1 Month ago - Alcohol/Substance Use Hx Alcohol Use: No History of Substance Use: reports: Marijuana (daily) Date of Last Use: 05/09/18 - Social History ADL: Independent History of Recent Travel: No Home Medications - Allergies Allergies/Adverse Reactions: Allergies Allergy/AdvReac Type Severity Reaction Status Date / Time No Known Allergies Allergy Verified 02/25/19 04:38 - Home Medications Home Medications: Ambulatory Orders Budesonide/Formeterol Fumarate [SYMBICORT 80/4.5mcg -] 2 puff IH BID inhaler Oxycodone HCl 30 mg PO Q6H PRN 02/26/19 Family Disease History - Family Disease History Family Disease History: CA: Mother, Respiratory: Mother Physical Examination Vital Signs: Vital Signs Temperature 97.7 F 04/22/19 13:16 Pulse Rate 73 04/22/19 13:16 Respiratory Rate 18 04/22/19 13:16 Blood Pressure 122/91 04/22/19 13:16 O2 Sat by Pulse Oximetry (%) 100 04/22/19 13:16 Constitutional: Yes: Anxious HENT: Yes: Atraumatic Neck: Yes: Supple Cardiovascular: Yes: Regular Rate and Rhythm Respiratory: Yes: CTA Bilaterally Gastrointestinal: Yes: Normal Bowel Sounds, Tenderness (suprapubic) Extremities: Yes: WNL Edema: No Neurological: Yes: Alert, Oriented Labs: CBC, BMP 04/22/19 13:58 04/22/19 13:58 Imaging - Results Cat Scan: Report Reviewed Problem List - Problems (1) UTI (urinary tract infection) Assessment/Plan: on abx cxs pending Code(s): N39.0 - URINARY TRACT INFECTION, SITE NOT SPECIFIED Qualifiers: (2) Lower abdominal pain Assessment/Plan: prn pain meds Code(s): R10.30 - LOWER ABDOMINAL PAIN, UNSPECIFIED (3) Anxiety Code(s): F41.9 - ANXIETY DISORDER, UNSPECIFIED (4) CKD (chronic kidney disease) Code(s): N18.9 - CHRONIC KIDNEY DISEASE, UNSPECIFIED Qualifiers: (5) COPD (chronic obstructive pulmonary disease) Code(s): J44.9 - CHRONIC OBSTRUCTIVE PULMONARY DISEASE, UNSPECIFIED (6) Depression Code(s): F32.9 - MAJOR DEPRESSIVE DISORDER, SINGLE EPISODE, UNSPECIFIED (7) Anxiety about health Code(s): F41.8 - OTHER SPECIFIED ANXIETY DISORDERS Assessment/Plan Laboratory Tests 04/22/19 04/22/19 04/22/19 13:58 13:58 13:58 WBC 5.6 RBC 4.48 Hgb 13.5 Hct 39.6 MCV 88.3 MCH 30.1 MCHC 34.1 RDW 15.4 Plt Count 213 MPV 9.6 Absolute Neuts (auto) 3.7 Neutrophils % 66.3 Lymphocytes % 18.2 D Monocytes % 6.2 Eosinophils % 8.8 H Basophils % 0.5 Nucleated RBC % 0 PT with INR Cancelled INR Cancelled PTT (Actin FS) Sodium 140 Potassium 4.6 Chloride 109 H Carbon Dioxide 25 Anion Gap 6 L BUN 17 Creatinine 1.9 H Est GFR (CKD-EPI)AfAm 36.52 Est GFR (CKD-EPI)NonAf 31.51 Random Glucose 76 Lactic Acid Calcium 8.6 Total Bilirubin 0.4 AST 33 ALT 16 Alkaline Phosphatase 67 Troponin I < 0.02 Total Protein 6.7 Albumin 3.1 L Lipase 233 Urine Color Urine Appearance Urine pH Ur Specific [place] Urine Protein Urine Glucose (UA) Urine Ketones Urine Blood Urine Nitrite Urine Bilirubin Urine Urobilinogen Ur Leukocyte Esterase Urine WBC (Auto) Urine RBC (Auto) Urine Casts (Auto) U Pathogenic Cast Auto U Epithel Cells (Auto) Urine Bacteria (Auto) Urine HCG, Qual Stool Occult Blood Blood Type Antibody Screen 04/22/19 04/22/19 04/22/19 13:58 13:58 13:58 WBC RBC Hgb Hct MCV MCH MCHC RDW Plt Count MPV Absolute Neuts (auto) Neutrophils % Lymphocytes % Monocytes % Eosinophils % Basophils % Nucleated RBC % PT with INR INR PTT (Actin FS) Sodium Potassium Chloride Carbon Dioxide Anion Gap BUN Creatinine Est GFR (CKD-EPI)AfAm Est GFR (CKD-EPI)NonAf Random Glucose Lactic Acid Calcium Total Bilirubin AST ALT Alkaline Phosphatase Troponin I Total Protein Albumin Lipase Cancelled Urine Color Yellow Urine Appearance Cloudy Urine pH 7.0 Ur Specific [place] 1.010 Urine Protein 2+ H Urine Glucose (UA) Negative Urine Ketones Negative Urine Blood 1+ H Urine Nitrite Positive H Urine Bilirubin Negative Urine Urobilinogen 0.2 Ur Leukocyte Esterase 3+ H Urine WBC (Auto) 82 Urine RBC (Auto) 7 Urine Casts (Auto) 83 U Pathogenic Cast Auto 1-2 wbc cast U Epithel Cells (Auto) 3.1 Urine Bacteria (Auto) 6106.2 Urine HCG, Qual Negative Stool Occult Blood Blood Type O POSITIVE Antibody Screen Negative 04/22/19 04/22/19 04/22/19 13:58 14:12 14:44 WBC RBC Hgb Hct MCV MCH MCHC RDW Plt Count MPV Absolute Neuts (auto) Neutrophils % Lymphocytes % Monocytes % Eosinophils % Basophils % Nucleated RBC % PT with INR 11.20 INR 0.95 PTT (Actin FS) 33.0 Sodium Potassium Chloride Carbon Dioxide Anion Gap BUN Creatinine Est GFR (CKD-EPI)AfAm Est GFR (CKD-EPI)NonAf Random Glucose Lactic Acid 1.1 Calcium Total Bilirubin AST ALT Alkaline Phosphatase Troponin I Total Protein Albumin Lipase Urine Color Urine Appearance Urine pH Ur Specific [place] Urine Protein Urine Glucose (UA) Urine Ketones Urine Blood Urine Nitrite Urine Bilirubin Urine Urobilinogen Ur Leukocyte Esterase Urine WBC (Auto) Urine RBC (Auto) Urine Casts (Auto) U Pathogenic Cast Auto U Epithel Cells (Auto) Urine Bacteria (Auto) Urine HCG, Qual Stool Occult Blood Negative Blood Type Antibody Screen Active Medications Generic Name Dose Route Start Last Admin Trade Name Freq PRN Reason Stop Dose Admin Acetaminophen 650 mg 04/22/19 20:20 Tylenol - PO Q6H PRN FEVER Budesonide/Formoterol Fumarate 2 puff 04/22/19 22:00 04/23/19 10:22 Symbicort 80/4.5mcg - IH 2 puff BID PATRICK Administration Ceftriaxone Sodium 1 gm/ 50 mls @ 100 mls/hr 04/23/19 10:00 04/23/19 10:15 Dextrose IVPB 100 mls/hr DAILY PATRICK Administration Protocol Morphine Sulfate 3 mg 04/22/19 20:20 04/23/19 10:14 Morphine Sulfate IVPUSH 3 mg Q4H PRN Administration PAIN LEVEL 4 - 6
[2019-04-22] MEDS ORDERED: ACETAMINOPHEN 325 MG TABLET (FP) PO PRN (20:20)
[2019-04-22] MEDS ORDERED: METOCLOPRAMIDE HCL INJECTION 10 MG/2 ML VIAL IVPUSH ONE (22:52)
[2019-04-22] MEDS ORDERED: METOCLOPRAMIDE HCL INJECTION 10 MG/2 ML VIAL ONE (22:53)
[2019-04-22] MEDS: BUDESONIDE/FORMETEROL FUMARATE 80/4.5 mcg INHALER IH SCH (23:22)
[2019-04-23 01:00] VITALS: BMI 36.8
[2019-04-23] MEDS: morphine SULFATE 4 MG/ML VIAL IVPUSH PRN ×4 (05:44→20:56)
[2019-04-23] MEDS ORDERED: ONDANSETRON 4 MG/2 ML VIAL IVPUSH ONE (05:54)
[2019-04-23 06:49] LABS: BASO % 0.4 % (0-2.0); EOS % 7.3 % (0-4.5); HEMATOCRIT 40.6 % (32.4-45.2); HEMOGLOBIN 13.8 GM/dL (10.7-15.3); MEAN CELL VOLUME 88.1 fl (80-96); MEAN PLT VOLUME 9.3 fl (7.5-11.1); MONO % 5.9 % (3.8-10.2); NEUT % 74.4 % (42.8-82.8); PLATELET COUNT 209 K/MM3 (134-434); RBC 4.61 M/mm3 (3.60-5.2); RDW 15.4 % (11.6-15.6); WHITE BLOOD COUNT 5.8 K/mm3 (4.0-10.0)
[2019-04-23 07:16] LABS: ALBUMIN 3.2 g/dl (3.4-5.0); BILIRUBIN,TOTAL 0.2 mg/dL (0.2-1); CALCIUM 8.7 mg/dL (8.5-10.1); CREATININE 1.7 mg/dL (0.55-1.3); TOT PROT 6.8 g/dl (6.4-8.2)
--- NOTE | 2019-04-23 08:49 | CON.ID ---
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 [facility]), Renal Calculi, UTI, Other ( ileal conduit) ...LMP: 02/11/19 Infectious Disease: Yes: MRSA, Other (ESBL) Psych: Yes: Anxiety, Depression Endocrine: Yes: Other (prior abnormal TFTs) Dermatology: Yes: Other (hidradenitis) - Past Surgical History Past Surgical History: Yes: Cystectomy, Ileal Conduit - Alcohol/Substance Use Hx Alcohol Use: No History of Substance Use: reports: Marijuana (daily) Date of Last Use: 05/09/18 - Smoking History Smoking history: Current every day smoker Have you smoked in the past 12 months: Yes Aproximately how many cigarettes per day: 2 If you are a former smoker, when did you quit?: 1 Month ago - Social History Usual Living Arrangement: Alone ADL: Independent History of Recent Travel: No Home Medications - Allergies Allergies/Adverse Reactions: Allergies Allergy/AdvReac Type Severity Reaction Status Date / Time No Known Allergies Allergy Verified 02/25/19 04:38 - Home Medications Home Medications: Ambulatory Orders Budesonide/Formeterol Fumarate [SYMBICORT 80/4.5mcg -] 2 puff IH BID inhaler Oxycodone HCl 30 mg PO Q6H PRN 02/26/19 Family Disease History - Family Disease History Family Disease History: CA: Mother, Respiratory: Mother Physical Exam Vital Signs: Vital Signs Temperature 97.9 F 04/23/19 07:14 Pulse Rate 71 04/23/19 07:14 Respiratory Rate 18 04/23/19 07:14 Blood Pressure 110/71 04/23/19 07:14 O2 Sat by Pulse Oximetry (%) 100 04/22/19 21:47 Labs: CBC, BMP 04/23/19 06:00 04/23/19 06:00
[2019-04-23] MEDS ORDERED: cefTRIAXone SODIUM 1 GM VIAL ONE (10:08)
[2019-04-23] MEDS ORDERED: DEXTROSE 5%-WATER - 50 ML IVPB ONE (10:08)
[2019-04-23] MEDS: CEFTRIAXONE 1 GM in DEXTROSE 5%-WATER - 50 ML IVPB SCH (10:15)
[2019-04-23] MEDS: BUDESONIDE/FORMETEROL FUMARATE 80/4.5 mcg INHALER IH SCH ×2 (10:22→22:38)
--- NOTE | 2019-04-23 12:04 | EKG ---
Test Reason : Blood Pressure : / mmHG Vent. Rate : 065 BPM Atrial Rate : 065 BPM P-R Int : 152 ms QRS Dur : 084 ms QT Int : 408 ms P-R-T Axes : 039 044 041 degrees QTc Int : 424 ms NORMAL SINUS RHYTHM SEPTAL INFARCT (CITED ON OR BEFORE 05-DEC-2018) ABNORMAL ECG WHEN COMPARED WITH ECG OF 25-FEB-2019 06:07, NO SIGNIFICANT CHANGE WAS FOUND Confirmed by Paulino Mixon MD ([id number]) on 04/23/2019 12:03:29 PM Referred By: Confirmed By:Paulino Mixon MD
--- NOTE | 2019-04-23 14:15 | PN ---
Progress Note, Physician - Current Medication List Current Medications: Active Medications Acetaminophen (Tylenol -) 650 mg PO Q6H PRN PRN Reason: FEVER Budesonide/Formoterol Fumarate (Symbicort 80/4.5mcg -) 2 puff IH BID PATRICK Last Admin: 04/23/19 10:22 Dose: 2 puff Ceftriaxone Sodium 1 gm/ (Dextrose) 50 mls @ 100 mls/hr IVPB DAILY PATRICK; Protocol Last Admin: 04/23/19 10:15 Dose: 100 mls/hr Morphine Sulfate (Morphine Sulfate) 3 mg IVPUSH Q4H PRN PRN Reason: PAIN LEVEL 4 - 6 Last Admin: 04/23/19 10:14 Dose: 3 mg - Objective Vital Signs: Vital Signs Temperature 97.9 F 04/23/19 14:07 Pulse Rate 80 04/23/19 14:07 Respiratory Rate 20 04/23/19 14:07 Blood Pressure 120/82 04/23/19 14:07 O2 Sat by Pulse Oximetry (%) 96 04/23/19 09:00 Constitutional: Yes: No Distress HENT: Yes: Atraumatic Neck: Yes: Supple Cardiovascular: Yes: Regular Rate and Rhythm Respiratory: Yes: CTA Bilaterally Gastrointestinal: Yes: Normal Bowel Sounds, Other (ileal conduit/bag in place) Extremities: Yes: WNL Edema: No Peripheral Pulses WNL: Yes Neurological: Yes: Alert, Oriented Labs: CBC, BMP 04/23/19 06:00 04/23/19 06:00 INR, PTT INR 0.95 (0.83-1.09) 04/22/19 14:12 Problem List - Problems (1) UTI (urinary tract infection) Assessment/Plan: on abx cxs pending Code(s): N39.0 - URINARY TRACT INFECTION, SITE NOT SPECIFIED Qualifiers: (2) Lower abdominal pain Assessment/Plan: prn pain meds Code(s): R10.30 - LOWER ABDOMINAL PAIN, UNSPECIFIED (3) Anxiety Code(s): F41.9 - ANXIETY DISORDER, UNSPECIFIED (4) CKD (chronic kidney disease) Code(s): N18.9 - CHRONIC KIDNEY DISEASE, UNSPECIFIED Qualifiers: (5) COPD (chronic obstructive pulmonary disease) Code(s): J44.9 - CHRONIC OBSTRUCTIVE PULMONARY DISEASE, UNSPECIFIED (6) Depression Code(s): F32.9 - MAJOR DEPRESSIVE DISORDER, SINGLE EPISODE, UNSPECIFIED
[2019-04-23] MEDS ORDERED: ZOLPIDEM TARTRATE 5 MG TABLET PO ONE (23:45)
[2019-04-24] MEDS: morphine SULFATE 4 MG/ML VIAL IVPUSH PRN ×5 (01:30→20:10)
[2019-04-24] MEDS ORDERED: cefTRIAXone SODIUM 1 GM VIAL ONE (08:55)
[2019-04-24] MEDS ORDERED: DEXTROSE 5%-WATER - 50 ML IVPB ONE (08:56)
--- NOTE | 2019-04-24 09:12 | CON.GU ---
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 [facility]), Renal Calculi, UTI, Other ( ileal conduit) ...LMP: 02/11/19 Infectious Disease: Yes: MRSA, Other (ESBL) Psych: Yes: Anxiety, Depression Endocrine: Yes: Other (prior abnormal TFTs) Dermatology: Yes: Other (hidradenitis) - Past Surgical History Past Surgical History: Yes: Cystectomy, Ileal Conduit - Alcohol/Substance Use Hx Alcohol Use: No History of Substance Use: reports: Marijuana (daily) Date of Last Use: 05/09/18 - Smoking History Smoking history: Current every day smoker Have you smoked in the past 12 months: Yes Aproximately how many cigarettes per day: 2 If you are a former smoker, when did you quit?: 1 Month ago - Social History Usual Living Arrangement: Alone ADL: Independent History of Recent Travel: No Home Medications - Allergies Allergies/Adverse Reactions: Allergies Allergy/AdvReac Type Severity Reaction Status Date / Time No Known Allergies Allergy Verified 02/25/19 04:38 - Home Medications Home Medications: Ambulatory Orders Budesonide/Formeterol Fumarate [SYMBICORT 80/4.5mcg -] 2 puff IH BID inhaler Oxycodone HCl 30 mg PO Q6H PRN 02/26/19 Family Disease History - Family Disease History Family Disease History: CA: Mother, Respiratory: Mother Physical Exam- Vital Signs: Vital Signs Temperature 98.4 F 04/24/19 05:00 Pulse Rate 59 L 04/24/19 05:00 Respiratory Rate 18 04/24/19 05:00 Blood Pressure 139/75 04/24/19 05:00 O2 Sat by Pulse Oximetry (%) 96 04/23/19 21:00 Labs: CBC, BMP 04/23/19 06:00 04/23/19 06:00 Assessment/Plan Pt. well known to our practice. Hx of ileal conduit with a plan reanastamosing ureters to the bladder at [facility]. She was seen there and the pt. tells me today that plan was abandoned. She will continue with ileal conduit. Blood culture Neg. Urine culture contaminated to be repeated. Ct. Scan no acute abdomen. Plan: No active intervention at present. To be followed in the office as necessary. Thank you
[2019-04-24] MEDS: BUDESONIDE/FORMETEROL FUMARATE 80/4.5 mcg INHALER IH SCH ×2 (09:28→21:48)
[2019-04-24] MEDS: CEFTRIAXONE 1 GM in DEXTROSE 5%-WATER - 50 ML IVPB SCH (09:28)
--- NOTE | 2019-04-24 10:44 | PN ---
Progress Note, Physician History of Present Illness: clinically patient looks much better still c/o of abd pain thinks that the stoma is protruding more pain main issue - Current Medication List Current Medications: Active Medications Acetaminophen (Tylenol -) 650 mg PO Q6H PRN PRN Reason: FEVER Last Admin: 04/23/19 17:31 Dose: 650 mg Budesonide/Formoterol Fumarate (Symbicort 80/4.5mcg -) 2 puff IH BID PATRICK Last Admin: 04/24/19 09:28 Dose: 2 puff Ceftriaxone Sodium 1 gm/ (Dextrose) 50 mls @ 100 mls/hr IVPB DAILY PATRICK; Protocol Last Admin: 04/24/19 09:28 Dose: 100 mls/hr Morphine Sulfate (Morphine Sulfate) 3 mg IVPUSH Q4H PRN PRN Reason: PAIN LEVEL 4 - 6 Last Admin: 04/24/19 06:01 Dose: 3 mg - Objective Vital Signs: Vital Signs Temperature 98.7 F 04/24/19 09:00 Pulse Rate 73 04/24/19 09:00 Respiratory Rate 20 04/24/19 09:00 Blood Pressure 138/84 04/24/19 09:00 O2 Sat by Pulse Oximetry (%) 96 04/23/19 21:00 Constitutional: Yes: Calm, Mild Distress Cardiovascular: Yes: Regular Rate and Rhythm Respiratory: Yes: Regular, CTA Bilaterally Gastrointestinal: Yes: Normal Bowel Sounds, Soft Musculoskeletal: Yes: WNL Extremities: Yes: WNL Neurological: Yes: Alert, Oriented Psychiatric: Yes: Alert, Oriented Labs: CBC, BMP 04/23/19 06:00 04/23/19 06:00 INR, PTT INR 0.95 (0.83-1.09) 04/22/19 14:12 Assessment/Plan Problem List - Problems (1) UTI (urinary tract infection) Code(s): N39.0 - URINARY TRACT INFECTION, SITE NOT SPECIFIED Qualifiers: (2) Lower abdominal pain Code(s): R10.30 - LOWER ABDOMINAL PAIN, UNSPECIFIED (3) Anxiety Code(s): F41.9 - ANXIETY DISORDER, UNSPECIFIED (4) CKD (chronic kidney disease) Code(s): N18.9 - CHRONIC KIDNEY DISEASE, UNSPECIFIED Qualifiers: (5) COPD (chronic obstructive pulmonary disease) Code(s): J44.9 - CHRONIC OBSTRUCTIVE PULMONARY DISEASE, UNSPECIFIED (6) Depression Code(s): F32.9 - MAJOR DEPRESSIVE DISORDER, SINGLE EPISODE, UNSPECIFIED plan continue current mgmt repeat urine ordered rest as per the team
--- NOTE | 2019-04-24 17:55 | CON.PSY ---
Psychiatry Consult Chief Complaint: Patient found to be crying all day. Seen for {Psych eval, no history of any Psych Illness or Hospitalizations. Symptoms: reports: Depressed Mood, Appetite Disturbance, Sleep Disturbance - Previous Psychiatric Treatment Outpatient: None Inpatient: None - Previous Substance Abuse Treatment Outpatient: None Inpatient: None - Current Medications Current Medications: Active Medications Acetaminophen (Tylenol -) 650 mg PO Q6H PRN PRN Reason: FEVER Last Admin: 04/23/19 17:31 Dose: 650 mg Budesonide/Formoterol Fumarate (Symbicort 80/4.5mcg -) 2 puff IH BID PATRICK Last Admin: 04/24/19 09:28 Dose: 2 puff Ceftriaxone Sodium 1 gm/ (Dextrose) 50 mls @ 100 mls/hr IVPB DAILY PATRICK; Protocol Last Admin: 04/24/19 09:28 Dose: 100 mls/hr Morphine Sulfate (Morphine Sulfate) 3 mg IVPUSH Q4H PRN PRN Reason: PAIN LEVEL 4 - 6 Last Admin: 04/24/19 16:09 Dose: 3 mg - Allergies Allergies: Allergies Allergy/AdvReac Type Severity Reaction Status Date / Time No Known Allergies Allergy Verified 02/25/19 04:38 - Current Living Status Usual Living Arrangement: With Spouse - Current Mental Status Evaluation Appearance: Well Groomed Attitude: Cooperative - Affect Affect: Constrictive Appropriateness: Appropriate to Content - Mood Mood: Depressed - Speech/Language Expressive: Coherent - Psychomotor Activity Psychomotor Activity: Slowed - Thought Process Thought Process: Intact - Thought Content Hallucinations: Absent Delusions: Absent - Self Perception Self Perception: No Impairment - Cognition Attention: Alert Orientation: Time Memory, Immediate Recall: Intact Memory, Short Term: 3/3 Memory, Remote with Promptin/3 - Concentration Serial Sevens Intact: Yes Simple Calculations Intact: Yes - Abstraction Proverb Interpretation: Intact Judgement: Intact - Insight Insight: Intact - Impulse Control Impulse Control: Good Control - Suicidal Ideation Suicidal Ideation: No - Homicidal Ideation Homicidal Ideation: No Assessment/Plan 1) suggested starting an anti depressant. but patient does not want to take any psych meds at tghis time. 2) She agreedto a Psychotherapist for supportive therapy.. please call for an evaluation.
[2019-04-24] MEDS ORDERED: PT OWN MED DRAWER 7, Y5N ONE (18:12)
--- NOTE | 2019-04-24 18:26 | PN ---
Progress Note, Physician - Current Medication List Current Medications: Active Medications Acetaminophen (Tylenol -) 650 mg PO Q6H PRN PRN Reason: FEVER Last Admin: 04/23/19 17:31 Dose: 650 mg Budesonide/Formoterol Fumarate (Symbicort 80/4.5mcg -) 2 puff IH BID PATRICK Last Admin: 04/24/19 09:28 Dose: 2 puff Ceftriaxone Sodium 1 gm/ (Dextrose) 50 mls @ 100 mls/hr IVPB DAILY PATRICK; Protocol Last Admin: 04/24/19 09:28 Dose: 100 mls/hr Morphine Sulfate (Morphine Sulfate) 3 mg IVPUSH Q4H PRN PRN Reason: PAIN LEVEL 4 - 6 Last Admin: 04/24/19 16:09 Dose: 3 mg - Objective Vital Signs: Vital Signs Temperature 98.2 F 04/24/19 17:21 Pulse Rate 59 L 04/24/19 17:21 Respiratory Rate 18 04/24/19 17:21 Blood Pressure 117/70 04/24/19 17:21 O2 Sat by Pulse Oximetry (%) 100 04/24/19 09:00 Constitutional: Yes: Calm HENT: Yes: Atraumatic Neck: Yes: Supple Cardiovascular: Yes: Regular Rate and Rhythm Respiratory: Yes: CTA Bilaterally Gastrointestinal: Yes: Normal Bowel Sounds, Other (conduit/bag in place) Extremities: Yes: WNL Edema: No Peripheral Pulses WNL: Yes Neurological: Yes: Alert, Oriented Labs: CBC, BMP 04/23/19 06:00 04/23/19 06:00 INR, PTT INR 0.95 (0.83-1.09) 04/22/19 14:12 Problem List - Problems (1) UTI (urinary tract infection) Assessment/Plan: on abx cxs pending Code(s): N39.0 - URINARY TRACT INFECTION, SITE NOT SPECIFIED Qualifiers: (2) Lower abdominal pain Assessment/Plan: prn pain meds Code(s): R10.30 - LOWER ABDOMINAL PAIN, UNSPECIFIED (3) Anxiety Code(s): F41.9 - ANXIETY DISORDER, UNSPECIFIED (4) CKD (chronic kidney disease) Code(s): N18.9 - CHRONIC KIDNEY DISEASE, UNSPECIFIED Qualifiers: (5) COPD (chronic obstructive pulmonary disease) Code(s): J44.9 - CHRONIC OBSTRUCTIVE PULMONARY DISEASE, UNSPECIFIED (6) Depression Code(s): F32.9 - MAJOR DEPRESSIVE DISORDER, SINGLE EPISODE, UNSPECIFIED
[2019-04-25] MEDS: morphine SULFATE 4 MG/ML VIAL IVPUSH PRN ×6 (00:33→22:13)
--- NOTE | 2019-04-25 08:39 | CON.PSL ---
Psychology Consult Consult Specialty:: Clinical Psychology History Provided By: Patient Limitations to Obtaining History: No Limitations Current Medications: Active Medications Acetaminophen (Tylenol -) 650 mg PO Q6H PRN PRN Reason: FEVER Last Admin: 04/23/19 17:31 Dose: 650 mg Budesonide/Formoterol Fumarate (Symbicort 80/4.5mcg -) 2 puff IH BID PATRICK Last Admin: 04/24/19 21:48 Dose: 2 puff Ceftriaxone Sodium 1 gm/ (Dextrose) 50 mls @ 100 mls/hr IVPB DAILY PATRICK; Protocol Last Admin: 04/24/19 09:28 Dose: 100 mls/hr Morphine Sulfate (Morphine Sulfate) 3 mg IVPUSH Q4H PRN PRN Reason: PAIN LEVEL 4 - 6 Last Admin: 04/25/19 04:52 Dose: 3 mg Allergies: Allergies Allergy/AdvReac Type Severity Reaction Status Date / Time No Known Allergies Allergy Verified 02/25/19 04:38 Does patient have pain?: Yes Pain Location Body Site: During Urination Pain Description: Burning, Sharp (The patient experiences severe pain in pelvic region especially when turning.), Acute Hx Alcohol Use: No Hx Substance Use: No (However, she smokes 2-3 cigarettes daily.) Hx Substance Use Treatment: No Current Medical Exam-Psy Attention: Alert Orientation: Time, Person, Place Immediate Term Memory: 01/20 Expressive: Coherent Receptive: Age Appropriate Comprehension of Spoken Words Hallucinations: Absent Thought Process: Intact Depression: Severe Hopelessness: Yes Loss of Interest: Yes Anxiety Level: Severe Danger to Self and Others: No Sleep: Difficulty falling asleep Appetite: Poor Serial Sevens Intact: No (She performed all subtraction except 79-7.) Support System: None (When asked about her family, she became very tearful and would not want to discuss the reason for these feelings.) Problem List - Problem (1) Major depress dis, severe Code(s): F32.2 - MAJOR DEPRESSV DISORD, SINGLE EPSD, SEV W/O PSYCH FEATURES (2) Major depression, recurrent Code(s): F33.9 - MAJOR DEPRESSIVE DISORDER, RECURRENT, UNSPECIFIED Qualifiers: Active/Remission status: currently active Major depression episode severity : severe Psychotic features: without psychotic features Qualified Code(s): F33.2 - Major depressive disorder, recurrent severe without psychotic features (3) Anxiety about health Code(s): F41.8 - OTHER SPECIFIED ANXIETY DISORDERS Assessment/Plan The patient was engaging during the interview. She was very upset when asked about her family. Past familial discord may be evidently impacting on her currently. She would not share the particulars. During the serial 7's test of concentration, she was able to perform the most difficult ones except for the 79 -7 one which is the easiest. She rated her pain at a 7, anxiety and depression at a 10 at times. She was offered a hypnotic intervention (did not use the term hypnosis) for pain but the patient declined the offer. Cognitive Behavior Therapy was employed briefly to provide her with a coping skill. [facility] as well as other mental health professionals during my absence. If the patient is still an inpatient when I return next week, I will see her again. Thank you for your referral.
[2019-04-25] MEDS ORDERED: cefTRIAXone SODIUM 1 GM VIAL ONE (09:00)
[2019-04-25] MEDS ORDERED: DEXTROSE 5%-WATER - 50 ML IVPB ONE (09:01)
[2019-04-25] MEDS: CEFTRIAXONE 1 GM in DEXTROSE 5%-WATER - 50 ML IVPB SCH (10:10)
[2019-04-25] MEDS: BUDESONIDE/FORMETEROL FUMARATE 80/4.5 mcg INHALER IH SCH ×2 (10:12→22:11)
--- NOTE | 2019-04-25 12:42 | PN ---
Progress Note, Physician History of Present Illness: stable no new issues - Current Medication List Current Medications: Active Medications Acetaminophen (Tylenol -) 650 mg PO Q6H PRN PRN Reason: FEVER Last Admin: 04/23/19 17:31 Dose: 650 mg Budesonide/Formoterol Fumarate (Symbicort 80/4.5mcg -) 2 puff IH BID PATRICK Last Admin: 04/25/19 10:12 Dose: 2 puff Ceftriaxone Sodium 1 gm/ (Dextrose) 50 mls @ 100 mls/hr IVPB DAILY PATRICK; Protocol Last Admin: 04/25/19 10:10 Dose: 100 mls/hr Morphine Sulfate (Morphine Sulfate) 3 mg IVPUSH Q4H PRN PRN Reason: PAIN LEVEL 4 - 6 Last Admin: 04/25/19 08:34 Dose: 3 mg - Objective Vital Signs: Vital Signs Temperature 98.9 F 04/25/19 10:00 Pulse Rate 72 04/25/19 10:00 Respiratory Rate 20 04/25/19 10:00 Blood Pressure 119/97 04/25/19 10:00 O2 Sat by Pulse Oximetry (%) 100 04/24/19 21:00 Constitutional: Yes: No Distress, Calm Cardiovascular: Yes: Regular Rate and Rhythm Respiratory: Yes: Regular, CTA Bilaterally Gastrointestinal: Yes: Normal Bowel Sounds, Soft Musculoskeletal: Yes: WNL Extremities: Yes: WNL Neurological: Yes: Alert, Oriented Psychiatric: Yes: Alert, Oriented Labs: CBC, BMP 04/23/19 06:00 04/23/19 06:00 INR, PTT INR 0.95 (0.83-1.09) 04/22/19 14:12 Assessment/Plan Problem List - Problems (1) UTI (urinary tract infection) Code(s): N39.0 - URINARY TRACT INFECTION, SITE NOT SPECIFIED Qualifiers: (2) Lower abdominal pain Code(s): R10.30 - LOWER ABDOMINAL PAIN, UNSPECIFIED (3) Anxiety Code(s): F41.9 - ANXIETY DISORDER, UNSPECIFIED (4) CKD (chronic kidney disease) Code(s): N18.9 - CHRONIC KIDNEY DISEASE, UNSPECIFIED Qualifiers: (5) COPD (chronic obstructive pulmonary disease) Code(s): J44.9 - CHRONIC OBSTRUCTIVE PULMONARY DISEASE, UNSPECIFIED (6) Depression Code(s): F32.9 - MAJOR DEPRESSIVE DISORDER, SINGLE EPISODE, UNSPECIFIED plan continue current mgmt repeat urine ordered rest as per the team awaiting for repeat cx to be back
--- NOTE | 2019-04-25 18:13 | PN ---
Progress Note, Physician History of Present Illness: stable - Current Medication List Current Medications: Active Medications Acetaminophen (Tylenol -) 650 mg PO Q6H PRN PRN Reason: FEVER Last Admin: 04/23/19 17:31 Dose: 650 mg Budesonide/Formoterol Fumarate (Symbicort 80/4.5mcg -) 2 puff IH BID PATRICK Last Admin: 04/25/19 10:12 Dose: 2 puff Ceftriaxone Sodium 1 gm/ (Dextrose) 50 mls @ 100 mls/hr IVPB DAILY PATRICK; Protocol Last Admin: 04/25/19 10:10 Dose: 100 mls/hr Morphine Sulfate (Morphine Sulfate) 3 mg IVPUSH Q4H PRN PRN Reason: PAIN LEVEL 4 - 6 Last Admin: 04/25/19 14:12 Dose: 3 mg Polyethylene Glycol (Miralax (For Daily Use) -) 17 gm PO BID [facility] - Objective Vital Signs: Vital Signs Temperature 98.1 F 04/25/19 16:52 Pulse Rate 57 L 04/25/19 16:52 Respiratory Rate 18 04/25/19 16:52 Blood Pressure 156/78 04/25/19 16:52 O2 Sat by Pulse Oximetry (%) 96 04/25/19 09:00 Constitutional: Yes: No Distress HENT: Yes: Atraumatic Neck: Yes: Supple Cardiovascular: Yes: Regular Rate and Rhythm Respiratory: Yes: CTA Bilaterally Gastrointestinal: Yes: Normal Bowel Sounds, Other (ileal conduit bag in place) Extremities: Yes: WNL Edema: No Peripheral Pulses WNL: Yes Neurological: Yes: Alert, Oriented Labs: CBC, BMP 04/23/19 06:00 04/23/19 06:00 INR, PTT INR 0.95 (0.83-1.09) 04/22/19 14:12 Problem List - Problems (1) UTI (urinary tract infection) Assessment/Plan: on abx ucxs contaminated bcx pending Code(s): N39.0 - URINARY TRACT INFECTION, SITE NOT SPECIFIED Qualifiers: Urinary tract infection type: catheter-associated UTI Indwelling urinary catheter type: nephrostomy catheter Encounter type: subsequent encounter Qualified Code(s): T83.512D - Infection and inflammatory reaction due to nephrostomy catheter, subsequent encounter; N39.0 - Urinary tract infection, site not specified (2) Lower abdominal pain Assessment/Plan: prn pain meds Code(s): R10.30 - LOWER ABDOMINAL PAIN, UNSPECIFIED (3) Anxiety Code(s): F41.9 - ANXIETY DISORDER, UNSPECIFIED (4) CKD (chronic kidney disease) Code(s): N18.9 - CHRONIC KIDNEY DISEASE, UNSPECIFIED Qualifiers: (5) COPD (chronic obstructive pulmonary disease) Code(s): J44.9 - CHRONIC OBSTRUCTIVE PULMONARY DISEASE, UNSPECIFIED (6) Depression Code(s): F32.9 - MAJOR DEPRESSIVE DISORDER, SINGLE EPISODE, UNSPECIFIED
--- NOTE | 2019-04-25 18:49 | CONSULT ---
Consult Consult Specialty:: General Surgery Reason for Consultation:: prolapsed ileal conduit - History of Present Illness Chief Complaint: abdominal pain and prolapse History of Present Illness: 43 yo female PMH COPD, endometriosis, chronic kidney disease, urostomy presents with lower abdominal pain for 3 days. The patient reports that the pain is persistent and noted that her stoma has been protruding from her urostomy. She denies any fevers or chills. But does report that she may be having some small amounts of blood in her stool. Patient reports that she's been lately feeling constipated as well. Reports that the pain is persistent but is unsure if there is an infection in her urostomy. No nausea or vomiting. Patient does report several months of intermittent chest pressure. Not always exertional. Denies shortness of breath. Denies chest pain now this moment. Patient denies any previous cardiac history. She does not think she is wheezing. We were called to assess her ileostomy. - History Source History Provided By: Patient, Medical Record Limitations to Obtaining History: No Limitations 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 [facility]), Renal Calculi, UTI, Other ( ileal conduit) ...LMP: 02/11/19 Infectious Disease: Yes: MRSA, Other (ESBL) Psych: Yes: Anxiety, Depression Endocrine: Yes: Other (prior abnormal TFTs) Dermatology: Yes: Other (hidradenitis) - Past Surgical History Past Surgical History: Yes: Cystectomy, Ileal Conduit - Alcohol/Substance Use Hx Alcohol Use: No History of Substance Use: reports: Marijuana (daily) Date of Last Use: 05/09/18 - Smoking History Smoking history: Current every day smoker Have you smoked in the past 12 months: Yes Aproximately how many cigarettes per day: 2 If you are a former smoker, when did you quit?: 1 Month ago - Social History Usual Living Arrangement: With Spouse ADL: Independent History of Recent Travel: No Home Medications - Allergies Allergies/Adverse Reactions: Allergies Allergy/AdvReac Type Severity Reaction Status Date / Time No Known Allergies Allergy Verified 02/25/19 04:38 - Home Medications Home Medications: Ambulatory Orders Budesonide/Formeterol Fumarate [SYMBICORT 80/4.5mcg -] 2 puff IH BID inhaler Oxycodone HCl 30 mg PO Q6H PRN 02/26/19 Family Disease History - Family Disease History Family Disease History: CA: Mother, Respiratory: Mother Review of Systems - Review of Systems Constitutional: denies: Chills, Fever Eyes: denies: Blind Spots, Photophobia, Recent Change in Vision HENT: denies: Difficult Swallowing, Throat Pain, Toothache Neck: denies: Decreased ROM, Tenderness Cardiovascular: denies: Chest Pain, Palpitations Respiratory: denies: Cough, SOB Gastrointestinal: reports: Abdominal Pain Genitourinary: reports: Other (s/p ileostomy). denies: Burning, Discharge Breasts: reports: No Symptoms Reported. denies: Pain Musculoskeletal: denies: Extremity Pain, Joint Swelling Integumentary: denies: Bruising, Lump, Pallor Neurological: denies: Seizure, Syncope Endocrine: denies: Unexplained Weight Gain, Unexplained Weight Loss Hematology/Lymphatic: denies: Easily Bruised, Excessive Bleeding Psychiatric: denies: Anxiety, Depression Physical Exam Vital Signs: Vital Signs Temperature 98.1 F 04/25/19 16:52 Pulse Rate 57 L 04/25/19 16:52 Respiratory Rate 18 04/25/19 16:52 Blood Pressure 156/78 04/25/19 16:52 O2 Sat by Pulse Oximetry (%) 96 04/25/19 09:00 Vital Signs Period Temp Pulse Resp BP Sys/Minor Pulse Ox Last 24 Hr 98.1 F-98.9 F 56-97 18-20 119-156/70-97 99 Intake & Output 04/25/19 04/26/19 04/26/19 23:59 07:59 15:59 Intake Total 200 50 Balance 200 50 Intake: Oral 200 50 Other: Voiding Method Toilet # Unmeasured Voids Void 1 1 Bowel Movement No Yes Constitutional: Yes: Well Nourished, No Distress, Calm, Obese Eyes: Yes: Conjunctiva Clear, EOM Intact HENT: Yes: Atraumatic, Normocephalic Neck: Yes: Supple, Trachea Midline Cardiovascular: Yes: Regular Rate and Rhythm, S1, S2 Respiratory: Yes: Regular, CTA Bilaterally Gastrointestinal: Yes: Normal Bowel Sounds, Soft, Abdomen, Obese, Tenderness ( peristomal), Other (RLQ ileostomy - proplapsed mucosa with clear urine output). No: Pulsatile Mass, Tenderness, Epigastrium, Tenderness, Rebound ...Rectal Exam: Yes: Deferred Renal/: Yes: Other (healed nephrostomy tubes bilaterally). No: CVA Tenderness - Left, CVA Tenderness - Right Musculoskeletal: No: Joint Swelling, Muscle Weakness Extremities: No: Cool, Cyanosis Integumentary: No: Jaundice, Pressure Ulcer Neurological: Yes: Alert, Oriented Psychiatric: Yes: Alert, Oriented Labs: CBC, BMP 04/23/19 06:00 04/23/19 06:00 Imaging - Results Cat Scan: Report Reviewed, Image Reviewed (bilateral mild hydronephrosis, no parastomal hernia adjacent to RLQ ileal conduit) Problem List - Problems (1) Complication of Ileal conduit Assessment/Plan: 43yo female with mild proplase ileal conduit, conduit appears functional and viable. the CT scan of the abdomen shows bilateral mild hydronephrosis, no parastomal hernia adjacent to RLQ ileal conduit. There is no stenosis of the stoma: able to pass the tip of the small finger and a cotton swab to the fascia. There is no role for surgical revision from the perspective of general surgery, in the absence of obstruction, stomal necrosis and retraction, or stomal stenosis. Her concerns were surrounding the increase in size of visible mucosa and vague pain at the site. Treat anxiety Medical management of CKD and electrolytes adequate analgesia vigilent ostomy and skin care Recommend follow up with initial surgeon by Dr. Lawson Hoffman MD [facility] [phone] Thank you for the opportunity to participate in the care of this patient. Code(s): N99.528 - OTHER COMP OF INCONTINENT EXTERNAL STOMA OF URINARY TRACT (2) Obese Code(s): E66.9 - OBESITY, UNSPECIFIED Qualifiers: Obesity type: due to excess calories Serious obesity comorbidity presence: with serious comorbidity Body mass index: BMI 36.0-36.9 (3) Major depress dis, severe Code(s): F32.2 - MAJOR DEPRESSV DISORD, SINGLE EPSD, SEV W/O PSYCH FEATURES (4) UTI (urinary tract infection) Code(s): N39.0 - URINARY TRACT INFECTION, SITE NOT SPECIFIED Qualifiers: Urinary tract infection type: catheter-associated UTI Indwelling urinary catheter type: nephrostomy catheter Encounter type: subsequent encounter Qualified Code(s): T83.512D - Infection and inflammatory reaction due to nephrostomy catheter, subsequent encounter; N39.0 - Urinary tract infection, site not specified (5) Anxiety Code(s): F41.9 - ANXIETY DISORDER, UNSPECIFIED (6) CKD (chronic kidney disease) Code(s): N18.9 - CHRONIC KIDNEY DISEASE, UNSPECIFIED Qualifiers: (7) COPD (chronic obstructive pulmonary disease) Code(s): J44.9 - CHRONIC OBSTRUCTIVE PULMONARY DISEASE, UNSPECIFIED
[2019-04-25] MEDS: POLYETHYLENE GLYCOL 3350 119 GM BTL PO SCH (22:10)
[2019-04-26] MEDS: morphine SULFATE 4 MG/ML VIAL IVPUSH PRN ×7 (01:24→22:13)
[2019-04-26] MEDS ORDERED: DEXTROSE 5%-WATER - 50 ML IVPB ONE (07:42)
[2019-04-26] MEDS ORDERED: cefTRIAXone SODIUM 1 GM VIAL ONE (07:42)
[2019-04-26] MEDS: CEFTRIAXONE 1 GM in DEXTROSE 5%-WATER - 50 ML IVPB SCH (09:06)
[2019-04-26] MEDS: BUDESONIDE/FORMETEROL FUMARATE 80/4.5 mcg INHALER IH SCH ×2 (09:07→21:12)
--- NOTE | 2019-04-26 09:07 | PN ---
Progress Note, Physician History of Present Illness: patient stable pain main issues seems some prolapse of the stoma - Current Medication List Current Medications: Active Medications Acetaminophen (Tylenol -) 650 mg PO Q6H PRN PRN Reason: FEVER Last Admin: 04/23/19 17:31 Dose: 650 mg Budesonide/Formoterol Fumarate (Symbicort 80/4.5mcg -) 2 puff IH BID [facility] Last Admin: 04/25/19 22:11 Dose: 2 puff Ceftriaxone Sodium 1 gm/ (Dextrose) 50 mls @ 100 mls/hr IVPB DAILY [facility]; Protocol Last Admin: 04/25/19 10:10 Dose: 100 mls/hr Morphine Sulfate (Morphine Sulfate) 3 mg IVPUSH Q4H PRN PRN Reason: PAIN LEVEL 4 - 6 Last Admin: 04/26/19 08:01 Dose: 3 mg Polyethylene Glycol (Miralax (For Daily Use) -) 17 gm PO BID [facility] Last Admin: 04/25/19 22:10 Dose: 17 gm - Objective Vital Signs: Vital Signs Temperature 98.8 F 04/26/19 08:22 Pulse Rate 97 H 04/26/19 08:22 Respiratory Rate 18 04/26/19 08:22 Blood Pressure 142/96 04/26/19 08:22 O2 Sat by Pulse Oximetry (%) 99 04/25/19 21:00 Constitutional: Yes: Calm, Mild Distress Cardiovascular: Yes: Regular Rate and Rhythm Respiratory: Yes: Regular, CTA Bilaterally Gastrointestinal: Yes: Normal Bowel Sounds, Soft Musculoskeletal: Yes: WNL Extremities: Yes: WNL Psychiatric: Yes: Alert, Oriented Labs: CBC, BMP 04/23/19 06:00 04/23/19 06:00 INR, PTT INR 0.95 (0.83-1.09) 04/22/19 14:12 Assessment/Plan Problem List - Problems (1) UTI (urinary tract infection) Code(s): N39.0 - URINARY TRACT INFECTION, SITE NOT SPECIFIED Qualifiers: (2) Lower abdominal pain Code(s): R10.30 - LOWER ABDOMINAL PAIN, UNSPECIFIED (3) Anxiety Code(s): F41.9 - ANXIETY DISORDER, UNSPECIFIED (4) CKD (chronic kidney disease) Code(s): N18.9 - CHRONIC KIDNEY DISEASE, UNSPECIFIED Qualifiers: (5) COPD (chronic obstructive pulmonary disease) Code(s): J44.9 - CHRONIC OBSTRUCTIVE PULMONARY DISEASE, UNSPECIFIED (6) Depression Code(s): F32.9 - MAJOR DEPRESSIVE DISORDER, SINGLE EPISODE, UNSPECIFIED plan continue current mgmt will stop abx rest as per the team
[2019-04-26] MEDS: POLYETHYLENE GLYCOL 3350 119 GM BTL PO SCH ×2 (09:15→21:12)
--- NOTE | 2019-04-26 16:22 | PN ---
Progress Note, Physician History of Present Illness: stable - Current Medication List Current Medications: Active Medications Acetaminophen (Tylenol -) 650 mg PO Q6H PRN PRN Reason: FEVER Last Admin: 04/23/19 17:31 Dose: 650 mg Budesonide/Formoterol Fumarate (Symbicort 80/4.5mcg -) 2 puff IH BID [facility] Last Admin: 04/26/19 09:07 Dose: 2 puff Ceftriaxone Sodium 1 gm/ (Dextrose) 50 mls @ 100 mls/hr IVPB DAILY [facility]; Protocol Last Admin: 04/26/19 09:06 Dose: 100 mls/hr Morphine Sulfate (Morphine Sulfate) 3 mg IVPUSH Q4H PRN PRN Reason: PAIN LEVEL 4 - 6 Last Admin: 04/26/19 15:30 Dose: 3 mg Polyethylene Glycol (Miralax (For Daily Use) -) 17 gm PO BID [facility] Last Admin: 04/26/19 09:15 Dose: Not Given - Objective Vital Signs: Vital Signs Temperature 98.2 F 04/26/19 15:11 Pulse Rate 72 04/26/19 15:11 Respiratory Rate 18 04/26/19 15:11 Blood Pressure 128/82 04/26/19 15:11 O2 Sat by Pulse Oximetry (%) 97 04/26/19 09:00 Constitutional: Yes: No Distress HENT: Yes: Atraumatic Neck: Yes: Supple Cardiovascular: Yes: Regular Rate and Rhythm Respiratory: Yes: CTA Bilaterally Gastrointestinal: Yes: Normal Bowel Sounds Extremities: Yes: WNL Edema: No Peripheral Pulses WNL: Yes Neurological: Yes: Alert, Oriented Labs: CBC, BMP 04/23/19 06:00 04/23/19 06:00 INR, PTT INR 0.95 (0.83-1.09) 04/22/19 14:12 Problem List - Problems (1) UTI (urinary tract infection) Assessment/Plan: on abx ucxs contaminated bcx pending Code(s): N39.0 - URINARY TRACT INFECTION, SITE NOT SPECIFIED Qualifiers: Urinary tract infection type: catheter-associated UTI Indwelling urinary catheter type: nephrostomy catheter Encounter type: subsequent encounter Qualified Code(s): T83.512D - Infection and inflammatory reaction due to nephrostomy catheter, subsequent encounter; N39.0 - Urinary tract infection, site not specified (2) Lower abdominal pain Assessment/Plan: prn pain meds Code(s): R10.30 - LOWER ABDOMINAL PAIN, UNSPECIFIED (3) Anxiety Code(s): F41.9 - ANXIETY DISORDER, UNSPECIFIED (4) CKD (chronic kidney disease) Code(s): N18.9 - CHRONIC KIDNEY DISEASE, UNSPECIFIED Qualifiers: (5) COPD (chronic obstructive pulmonary disease) Code(s): J44.9 - CHRONIC OBSTRUCTIVE PULMONARY DISEASE, UNSPECIFIED (6) Depression Code(s): F32.9 - MAJOR DEPRESSIVE DISORDER, SINGLE EPISODE, UNSPECIFIED (7) Anxiety about health Code(s): F41.8 - OTHER SPECIFIED ANXIETY DISORDERS
[2019-04-27] MEDS: morphine SULFATE 4 MG/ML VIAL IVPUSH PRN ×6 (02:16→23:55)
[2019-04-27 07:26] LABS: ALBUMIN 3.3 g/dl (3.4-5.0); BILIRUBIN,TOTAL 0.3 mg/dL (0.2-1); BLOOD UREA NITROGEN 12.6 mg/dL (7-18); CALCIUM 8.9 mg/dL (8.5-10.1); POTASSIUM 4.3 mmol/L (3.5-5.1); TOT PROT 7.2 g/dl (6.4-8.2)
[2019-04-27 07:52] LABS: BASO % 0.5 % (0-2.0); EOS % 10.3 % (0-4.5); HEMATOCRIT 44.6 % (32.4-45.2); LYMPH % 28.4 % (8-40); MCH 29.8 pg (25.7-33.7); MCHC 33.7 g/dl (32.0-36.0); MEAN CELL VOLUME 88.3 fl (80-96); MEAN PLT VOLUME 9.5 fl (7.5-11.1); MONO % 11.6 % (3.8-10.2); NEUT % 49.2 % (42.8-82.8); RBC 5.05 M/mm3 (3.60-5.2); RDW 15.2 % (11.6-15.6)
[2019-04-27] MEDS ORDERED: cefTRIAXone SODIUM 1 GM VIAL ONE (09:03)
[2019-04-27] MEDS ORDERED: DEXTROSE 5%-WATER - 50 ML IVPB ONE (09:03)
[2019-04-27] MEDS: CEFTRIAXONE 1 GM in DEXTROSE 5%-WATER - 50 ML IVPB SCH (09:24)
[2019-04-27] MEDS: POLYETHYLENE GLYCOL 3350 119 GM BTL PO SCH ×3 (09:26→21:55)
[2019-04-27] MEDS: BUDESONIDE/FORMETEROL FUMARATE 80/4.5 mcg INHALER IH SCH ×2 (09:32→21:53)
--- NOTE | 2019-04-27 13:45 | PN ---
Progress Note, Physician - Current Medication List Current Medications: Active Medications Acetaminophen (Tylenol -) 650 mg PO Q6H PRN PRN Reason: FEVER Last Admin: 04/23/19 17:31 Dose: 650 mg Budesonide/Formoterol Fumarate (Symbicort 80/4.5mcg -) 2 puff IH BID [facility] Last Admin: 04/27/19 09:32 Dose: 2 puff Ceftriaxone Sodium 1 gm/ (Dextrose) 50 mls @ 100 mls/hr IVPB DAILY [facility]; Protocol Last Admin: 04/27/19 09:24 Dose: 100 mls/hr Morphine Sulfate (Morphine Sulfate) 3 mg IVPUSH Q4H PRN PRN Reason: PAIN LEVEL 4 - 6 Last Admin: 04/27/19 09:25 Dose: 3 mg Polyethylene Glycol (Miralax (For Daily Use) -) 17 gm PO BID [facility] Last Admin: 04/27/19 09:26 Dose: Not Given - Objective Vital Signs: Vital Signs Temperature 98.1 F 04/27/19 13:28 Pulse Rate 67 04/27/19 13:28 Respiratory Rate 18 04/27/19 13:28 Blood Pressure 120/71 04/27/19 13:28 O2 Sat by Pulse Oximetry (%) 100 04/27/19 09:00 Constitutional: Yes: No Distress HENT: Yes: Atraumatic Neck: Yes: Supple Cardiovascular: Yes: Regular Rate and Rhythm Respiratory: Yes: CTA Bilaterally Gastrointestinal: Yes: Normal Bowel Sounds, Other (ileal conduit bag in place) Extremities: Yes: WNL Edema: No Neurological: Yes: Alert, Oriented Labs: CBC, BMP 04/27/19 06:20 04/27/19 06:20 INR, PTT INR 0.95 (0.83-1.09) 04/22/19 14:12 Problem List - Problems (1) UTI (urinary tract infection) Assessment/Plan: on abx ucxs contaminated bcx pending Code(s): N39.0 - URINARY TRACT INFECTION, SITE NOT SPECIFIED Qualifiers: Urinary tract infection type: catheter-associated UTI Indwelling urinary catheter type: nephrostomy catheter Encounter type: subsequent encounter Qualified Code(s): T83.512D - Infection and inflammatory reaction due to nephrostomy catheter, subsequent encounter; N39.0 - Urinary tract infection, site not specified (2) Lower abdominal pain Assessment/Plan: prn pain meds Code(s): R10.30 - LOWER ABDOMINAL PAIN, UNSPECIFIED (3) Anxiety Code(s): F41.9 - ANXIETY DISORDER, UNSPECIFIED (4) CKD (chronic kidney disease) Code(s): N18.9 - CHRONIC KIDNEY DISEASE, UNSPECIFIED Qualifiers: (5) COPD (chronic obstructive pulmonary disease) Code(s): J44.9 - CHRONIC OBSTRUCTIVE PULMONARY DISEASE, UNSPECIFIED (6) Depression Code(s): F32.9 - MAJOR DEPRESSIVE DISORDER, SINGLE EPISODE, UNSPECIFIED (7) Anxiety about health Code(s): F41.8 - OTHER SPECIFIED ANXIETY DISORDERS
[2019-04-27 14:36] LABS: PLATELET COUNT 210 K/MM3 (134-434)
--- NOTE | 2019-04-27 18:24 | PN ---
Progress Note, Physician History of Present Illness: Events noted. Pt without new complaints. Has abd pain but afebrile, without distress. - Current Medication List Current Medications: Active Medications Acetaminophen (Tylenol -) 650 mg PO Q6H PRN PRN Reason: FEVER Last Admin: 04/23/19 17:31 Dose: 650 mg Budesonide/Formoterol Fumarate (Symbicort 80/4.5mcg -) 2 puff [facility]ID [facility] Last Admin: 04/27/19 09:32 Dose: 2 puff Ceftriaxone Sodium 1 gm/ (Dextrose) 50 mls @ 100 mls/hr IVPB DAILY [facility]; Protocol Last Admin: 04/27/19 09:24 Dose: 100 mls/hr Morphine Sulfate (Morphine Sulfate) 3 mg IVPUSH Q4H PRN PRN Reason: PAIN LEVEL 4 - 6 Last Admin: 04/27/19 15:24 Dose: 3 mg Polyethylene Glycol (Miralax (For Daily Use) -) 17 gm PO BID [facility] Last Admin: 04/27/19 09:26 Dose: Not Given - Objective Vital Signs: Vital Signs Temperature 98.1 F 04/27/19 13:28 Pulse Rate 67 04/27/19 13:28 Respiratory Rate 18 04/27/19 13:28 Blood Pressure 120/71 04/27/19 13:28 O2 Sat by Pulse Oximetry (%) 100 04/27/19 09:00 Constitutional: Yes: No Distress, Calm Cardiovascular: Yes: Regular Rate and Rhythm Respiratory: Yes: Regular Genitourinary: Yes: Other (urostomy) Neurological: Yes: Alert, Oriented Labs: CBC, BMP 04/27/19 06:20 04/27/19 06:20 INR, PTT INR 0.95 (0.83-1.09) 04/22/19 14:12 Microbiology 04/22/19 14:11 Blood - Peripheral Venous Blood Culture - Final NO GROWTH AFTER 5 DAYS INCUBATION 04/22/19 14:11 Blood - Peripheral Venous Blood Culture - Final NO GROWTH AFTER 5 DAYS INCUBATION 04/25/19 00:05 Urine - Urine Clean Catch Urine Culture - Final Contaminated: Please Repeat 04/22/19 13:58 Urine - Urine Clean Catch Urine Culture - Final Contaminated: Please Repeat Problem List - Problems (1) Obese Code(s): E66.9 - OBESITY, UNSPECIFIED Qualifiers: Obesity type: due to excess calories Serious obesity comorbidity presence: with serious comorbidity Body mass index: BMI 36.0-36.9 (2) UTI (urinary tract infection) Code(s): N39.0 - URINARY TRACT INFECTION, SITE NOT SPECIFIED Qualifiers: Urinary tract infection type: catheter-associated UTI Indwelling urinary catheter type: nephrostomy catheter Encounter type: subsequent encounter Qualified Code(s): T83.512D - Infection and inflammatory reaction due to nephrostomy catheter, subsequent encounter; N39.0 - Urinary tract infection, site not specified (3) Abdominal pain Code(s): R10.9 - UNSPECIFIED ABDOMINAL PAIN Qualifiers: Abdominal location: lower abdomen, unspecified Qualified Code(s): R10.30 - Lower abdominal pain, unspecified (4) CKD (chronic kidney disease) Code(s): N18.9 - CHRONIC KIDNEY DISEASE, UNSPECIFIED Qualifiers: (5) COPD (chronic obstructive pulmonary disease) Code(s): J44.9 - CHRONIC OBSTRUCTIVE PULMONARY DISEASE, UNSPECIFIED Assessment/Plan -- repeat Urine culture contaminated, blood cultures neg -- continue current management -- Pt afebrile, without leukocytosis
[2019-04-28] MEDS: morphine SULFATE 4 MG/ML VIAL IVPUSH PRN ×4 (03:59→20:26)
[2019-04-28] MEDS ORDERED: cefTRIAXone SODIUM 1 GM VIAL ONE (09:17)
[2019-04-28] MEDS ORDERED: DEXTROSE 5%-WATER - 50 ML IVPB ONE (09:17)
[2019-04-28] MEDS ORDERED: PT OWN MED DRAWER 7, Y5N ONE (09:17)
[2019-04-28] MEDS: CEFTRIAXONE 1 GM in DEXTROSE 5%-WATER - 50 ML IVPB SCH (10:16)
[2019-04-28] MEDS: POLYETHYLENE GLYCOL 3350 119 GM BTL PO SCH ×2 (10:17→22:38)
[2019-04-28] MEDS: BUDESONIDE/FORMETEROL FUMARATE 80/4.5 mcg INHALER IH SCH ×2 (10:20→22:37)
--- NOTE | 2019-04-28 15:48 | PN ---
Progress Note, Physician History of Present Illness: Pt clinically the same. Remains afebrile, without new complaints. - Current Medication List Current Medications: Active Medications Acetaminophen (Tylenol -) 650 mg PO Q6H PRN PRN Reason: FEVER Last Admin: 04/23/19 17:31 Dose: 650 mg Budesonide/Formoterol Fumarate (Symbicort 80/4.5mcg -) 2 puff IH BID [facility] Last Admin: 04/28/19 10:20 Dose: 2 puff Ceftriaxone Sodium 1 gm/ (Dextrose) 50 mls @ 100 mls/hr IVPB DAILY [facility]; Protocol Last Admin: 04/28/19 10:16 Dose: 100 mls/hr Morphine Sulfate (Morphine Sulfate) 3 mg IVPUSH Q4H PRN PRN Reason: PAIN LEVEL 4 - 6 Last Admin: 04/28/19 10:17 Dose: 3 mg Polyethylene Glycol (Miralax (For Daily Use) -) 17 gm PO BID [facility] Last Admin: 04/28/19 10:17 Dose: Not Given - Objective Vital Signs: Vital Signs Temperature 98.2 F 04/28/19 13:39 Pulse Rate 74 04/28/19 13:39 Respiratory Rate 18 04/28/19 13:39 Blood Pressure 119/70 04/28/19 13:39 O2 Sat by Pulse Oximetry (%) 97 04/28/19 09:00 Constitutional: Yes: No Distress, Calm Cardiovascular: Yes: Regular Rate and Rhythm Respiratory: Yes: Regular Gastrointestinal: Yes: Normal Bowel Sounds, Soft Genitourinary: Yes: CVA Tenderness - Right, Other (urostomy) Neurological: Yes: Alert, Oriented Labs: CBC, BMP 04/27/19 06:20 04/27/19 06:20 INR, PTT INR 0.95 (0.83-1.09) 04/22/19 14:12 Microbiology 04/22/19 14:11 Blood - Peripheral Venous Blood Culture - Final NO GROWTH AFTER 5 DAYS INCUBATION 04/22/19 14:11 Blood - Peripheral Venous Blood Culture - Final NO GROWTH AFTER 5 DAYS INCUBATION 04/25/19 00:05 Urine - Urine Clean Catch Urine Culture - Final Contaminated: Please Repeat 04/22/19 13:58 Urine - Urine Clean Catch Urine Culture - Final Contaminated: Please Repeat Problem List - Problems (1) Obese Code(s): E66.9 - OBESITY, UNSPECIFIED Qualifiers: Obesity type: due to excess calories Serious obesity comorbidity presence: with serious comorbidity Body mass index: BMI 36.0-36.9 (2) UTI (urinary tract infection) Code(s): N39.0 - URINARY TRACT INFECTION, SITE NOT SPECIFIED Qualifiers: Urinary tract infection type: catheter-associated UTI Indwelling urinary catheter type: nephrostomy catheter Encounter type: subsequent encounter Qualified Code(s): T83.512D - Infection and inflammatory reaction due to nephrostomy catheter, subsequent encounter; N39.0 - Urinary tract infection, site not specified (3) Abdominal pain Code(s): R10.9 - UNSPECIFIED ABDOMINAL PAIN Qualifiers: Abdominal location: lower abdomen, unspecified Qualified Code(s): R10.30 - Lower abdominal pain, unspecified (4) CKD (chronic kidney disease) Code(s): N18.9 - CHRONIC KIDNEY DISEASE, UNSPECIFIED Qualifiers: (5) COPD (chronic obstructive pulmonary disease) Code(s): J44.9 - CHRONIC OBSTRUCTIVE PULMONARY DISEASE, UNSPECIFIED Assessment/Plan -- pt clinically the same -- seen by Surgery, no plans for surgical intervention -- continue antibiotics, urine cultures contaminated x 2 -- if remains stable will switch to po antibiotics empirically
--- NOTE | 2019-04-28 22:21 | PN ---
Progress Note, Physician History of Present Illness: No new complaints - Current Medication List Current Medications: Active Medications Acetaminophen (Tylenol -) 650 mg PO Q6H PRN PRN Reason: FEVER Last Admin: 04/23/19 17:31 Dose: 650 mg Budesonide/Formoterol Fumarate (Symbicort 80/4.5mcg -) 2 puff IH BID [facility] Last Admin: 04/28/19 10:20 Dose: 2 puff Ceftriaxone Sodium 1 gm/ (Dextrose) 50 mls @ 100 mls/hr IVPB DAILY [facility]; Protocol Last Admin: 04/28/19 10:16 Dose: 100 mls/hr Morphine Sulfate (Morphine Sulfate) 3 mg IVPUSH Q4H PRN PRN Reason: PAIN LEVEL 4 - 6 Last Admin: 04/28/19 20:26 Dose: 3 mg Polyethylene Glycol (Miralax (For Daily Use) -) 17 gm PO BID [facility] Last Admin: 04/28/19 10:17 Dose: Not Given - Objective Vital Signs: Vital Signs Temperature 98.3 F 04/28/19 18:15 Pulse Rate 85 04/28/19 18:15 Respiratory Rate 18 04/28/19 18:15 Blood Pressure 128/75 04/28/19 18:15 O2 Sat by Pulse Oximetry (%) 97 04/28/19 09:00 Cardiovascular: Yes: WNL, Regular Rate and Rhythm Respiratory: Yes: WNL, Regular, CTA Bilaterally Gastrointestinal: Yes: WNL, Normal Bowel Sounds, Soft Labs: CBC, BMP 04/27/19 06:20 04/27/19 06:20 INR, PTT INR 0.95 (0.83-1.09) 04/22/19 14:12
[2019-04-29] MEDS: morphine SULFATE 4 MG/ML VIAL IVPUSH PRN ×6 (00:43→22:29)
[2019-04-29] MEDS ORDERED: cefTRIAXone SODIUM 1 GM VIAL ONE (10:08)
[2019-04-29] MEDS ORDERED: DEXTROSE 5%-WATER - 50 ML IVPB ONE (10:08)
[2019-04-29] MEDS: CEFTRIAXONE 1 GM in DEXTROSE 5%-WATER - 50 ML IVPB SCH (10:09)
[2019-04-29] MEDS: POLYETHYLENE GLYCOL 3350 119 GM BTL PO SCH ×2 (10:10→21:44)
[2019-04-29] MEDS: BUDESONIDE/FORMETEROL FUMARATE 80/4.5 mcg INHALER IH SCH ×2 (10:11→21:44)
--- NOTE | 2019-04-29 12:55 | PN ---
Progress Note, Physician History of Present Illness: patient stable pain main issues seems some prolapse of the stoma - Current Medication List Current Medications: Active Medications Acetaminophen (Tylenol -) 650 mg PO Q6H PRN PRN Reason: FEVER Last Admin: 04/23/19 17:31 Dose: 650 mg Budesonide/Formoterol Fumarate (Symbicort 80/4.5mcg -) 2 puff IH BID [facility] Last Admin: 04/29/19 10:11 Dose: 2 puff Morphine Sulfate (Morphine Sulfate) 3 mg IVPUSH Q4H PRN PRN Reason: PAIN LEVEL 4 - 6 Last Admin: 04/29/19 10:10 Dose: 3 mg Polyethylene Glycol (Miralax (For Daily Use) -) 17 gm PO BID [facility] Last Admin: 04/29/19 10:10 Dose: Not Given - Objective Vital Signs: Vital Signs Temperature 98.0 F 04/28/19 22:00 Pulse Rate 68 04/28/19 22:00 Respiratory Rate 17 04/28/19 22:00 Blood Pressure 120/67 04/28/19 22:00 O2 Sat by Pulse Oximetry (%) 98 04/29/19 09:00 Constitutional: Yes: No Distress, Calm Cardiovascular: Yes: Regular Rate and Rhythm Respiratory: Yes: Regular, CTA Bilaterally Gastrointestinal: Yes: Normal Bowel Sounds, Soft Musculoskeletal: Yes: Other Extremities: Yes: Other Integumentary: Yes: Other (stoma present) Neurological: Yes: Alert, Oriented Labs: CBC, BMP 04/27/19 06:20 04/27/19 06:20 INR, PTT INR 0.95 (0.83-1.09) 04/22/19 14:12 Assessment/Plan Problem List - Problems (1) UTI (urinary tract infection) Code(s): N39.0 - URINARY TRACT INFECTION, SITE NOT SPECIFIED Qualifiers: (2) Lower abdominal pain Code(s): R10.30 - LOWER ABDOMINAL PAIN, UNSPECIFIED (3) Anxiety Code(s): F41.9 - ANXIETY DISORDER, UNSPECIFIED (4) CKD (chronic kidney disease) Code(s): N18.9 - CHRONIC KIDNEY DISEASE, UNSPECIFIED Qualifiers: (5) COPD (chronic obstructive pulmonary disease) Code(s): J44.9 - CHRONIC OBSTRUCTIVE PULMONARY DISEASE, UNSPECIFIED (6) Depression Code(s): F32.9 - MAJOR DEPRESSIVE DISORDER, SINGLE EPISODE, UNSPECIFIED plan continue current mgmt will stop abx rest as per the tem
--- NOTE | 2019-04-29 16:49 | PN ---
Progress Note, Physician History of Present Illness: stable - Current Medication List Current Medications: Active Medications Acetaminophen (Tylenol -) 650 mg PO Q6H PRN PRN Reason: FEVER Last Admin: 04/23/19 17:31 Dose: 650 mg Budesonide/Formoterol Fumarate (Symbicort 80/4.5mcg -) 2 puff IH BID [facility] Last Admin: 04/29/19 10:11 Dose: 2 puff Morphine Sulfate (Morphine Sulfate) 3 mg IVPUSH Q4H PRN PRN Reason: PAIN LEVEL 4 - 6 Last Admin: 04/29/19 13:53 Dose: 3 mg Polyethylene Glycol (Miralax (For Daily Use) -) 17 gm PO BID [facility] Last Admin: 04/29/19 10:10 Dose: Not Given - Objective Vital Signs: Vital Signs Temperature 98.1 F 04/29/19 14:56 Pulse Rate 53 L 04/29/19 14:56 Respiratory Rate 20 04/29/19 14:56 Blood Pressure 131/73 04/29/19 14:56 O2 Sat by Pulse Oximetry (%) 98 04/29/19 09:00 Constitutional: Yes: No Distress HENT: Yes: Atraumatic Neck: Yes: Supple Cardiovascular: Yes: Regular Rate and Rhythm Respiratory: Yes: CTA Bilaterally Gastrointestinal: Yes: Normal Bowel Sounds, Other (ileal conduit bag in place) Extremities: Yes: WNL Edema: No Peripheral Pulses WNL: Yes Neurological: Yes: Alert, Oriented Labs: CBC, BMP 04/27/19 06:20 04/27/19 06:20 INR, PTT INR 0.95 (0.83-1.09) 04/22/19 14:12 Problem List - Problems (1) UTI (urinary tract infection) Assessment/Plan: off of abx Code(s): N39.0 - URINARY TRACT INFECTION, SITE NOT SPECIFIED Qualifiers: Urinary tract infection type: catheter-associated UTI Indwelling urinary catheter type: nephrostomy catheter Encounter type: subsequent encounter Qualified Code(s): T83.512D - Infection and inflammatory reaction due to nephrostomy catheter, subsequent encounter; N39.0 - Urinary tract infection, site not specified (2) Lower abdominal pain Assessment/Plan: resolved Code(s): R10.30 - LOWER ABDOMINAL PAIN, UNSPECIFIED (3) Anxiety Code(s): F41.9 - ANXIETY DISORDER, UNSPECIFIED (4) CKD (chronic kidney disease) Code(s): N18.9 - CHRONIC KIDNEY DISEASE, UNSPECIFIED Qualifiers: (5) COPD (chronic obstructive pulmonary disease) Code(s): J44.9 - CHRONIC OBSTRUCTIVE PULMONARY DISEASE, UNSPECIFIED (6) Depression Code(s): F32.9 - MAJOR DEPRESSIVE DISORDER, SINGLE EPISODE, UNSPECIFIED (7) Anxiety about health Code(s): F41.8 - OTHER SPECIFIED ANXIETY DISORDERS Assessment/Plan dc in am if stable
[2019-04-29 20:30] LABS: BASO % 0.3 % (0-2.0); EOS % 6.9 % (0-4.5); HEMATOCRIT 43.7 % (32.4-45.2); HEMOGLOBIN 14.3 GM/dL (10.7-15.3); LYMPH % 28.8 % (8-40); MCH 29.4 pg (25.7-33.7); MCHC 32.8 g/dl (32.0-36.0); MEAN CELL VOLUME 89.6 fl (80-96); MEAN PLT VOLUME 9.7 fl (7.5-11.1); MONO % 6.7 % (3.8-10.2); NEUT % 57.3 % (42.8-82.8); PLATELET COUNT 197 K/MM3 (134-434); RBC 4.88 M/mm3 (3.60-5.2); RDW 15.7 % (11.6-15.6); WHITE BLOOD COUNT 5.6 K/mm3 (4.0-10.0)
[2019-04-29 20:58] LABS: ALBUMIN 3.4 g/dl (3.4-5.0); BILIRUBIN,TOTAL 0.5 mg/dL (0.2-1); BLOOD UREA NITROGEN 16.6 mg/dL (7-18); CREATININE 1.9 mg/dL (0.55-1.3); POTASSIUM 4.6 mmol/L (3.5-5.1); TOT PROT 7.3 g/dl (6.4-8.2)
[2019-04-30] MEDS: morphine SULFATE 4 MG/ML VIAL IVPUSH PRN ×2 (02:36→10:04)
[2019-04-30] MEDS: POLYETHYLENE GLYCOL 3350 119 GM BTL PO SCH (10:05)
[2019-04-30] MEDS: BUDESONIDE/FORMETEROL FUMARATE 80/4.5 mcg INHALER IH SCH (10:05)
[2019-04-30 10:41] VITALS: BP 127/84; PULSE 83; TEMP 97.9
--- NOTE | 2019-04-30 11:48 | PN ---
Progress Note, Physician History of Present Illness: stable doing well - Current Medication List Current Medications: Active Medications Acetaminophen (Tylenol -) 650 mg PO Q6H PRN PRN Reason: FEVER Last Admin: 04/23/19 17:31 Dose: 650 mg Budesonide/Formoterol Fumarate (Symbicort 80/4.5mcg -) 2 puff IH BID [facility] Last Admin: 04/30/19 10:05 Dose: 2 puff Morphine Sulfate (Morphine Sulfate) 3 mg IVPUSH Q4H PRN PRN Reason: PAIN LEVEL 4 - 6 Last Admin: 04/30/19 10:04 Dose: 3 mg Polyethylene Glycol (Miralax (For Daily Use) -) 17 gm PO BID [facility] Last Admin: 04/30/19 10:05 Dose: Not Given - Objective Vital Signs: Vital Signs Temperature 97.9 F 04/30/19 10:00 Pulse Rate 83 04/30/19 10:00 Respiratory Rate 18 04/30/19 10:00 Blood Pressure 127/84 04/30/19 10:00 O2 Sat by Pulse Oximetry (%) 97 04/30/19 09:00 Constitutional: Yes: No Distress, Calm Cardiovascular: Yes: Regular Rate and Rhythm Respiratory: Yes: Regular, CTA Bilaterally Gastrointestinal: Yes: Normal Bowel Sounds, Soft, Other (urostomy) Musculoskeletal: Yes: WNL Extremities: Yes: WNL Neurological: Yes: Alert, Oriented Psychiatric: Yes: Alert, Oriented Labs: CBC, BMP 04/29/19 19:00 04/29/19 19:00 INR, PTT INR 0.95 (0.83-1.09) 04/22/19 14:12 Assessment/Plan Problem List - Problems (1) UTI (urinary tract infection) Code(s): N39.0 - URINARY TRACT INFECTION, SITE NOT SPECIFIED Qualifiers: (2) Lower abdominal pain Code(s): R10.30 - LOWER ABDOMINAL PAIN, UNSPECIFIED (3) Anxiety Code(s): F41.9 - ANXIETY DISORDER, UNSPECIFIED (4) CKD (chronic kidney disease) Code(s): N18.9 - CHRONIC KIDNEY DISEASE, UNSPECIFIED Qualifiers: (5) COPD (chronic obstructive pulmonary disease) Code(s): J44.9 - CHRONIC OBSTRUCTIVE PULMONARY DISEASE, UNSPECIFIED (6) Depression Code(s): F32.9 - MAJOR DEPRESSIVE DISORDER, SINGLE EPISODE, UNSPECIFIED plan continue current mgmt stable
--- NOTE | 2019-04-30 20:20 | DS ---
Physical Examination Vital Signs: Vital Signs Temperature 97.9 F 04/30/19 10:00 Pulse Rate 83 04/30/19 10:00 Respiratory Rate 18 04/30/19 10:00 Blood Pressure 127/84 04/30/19 10:00 O2 Sat by Pulse Oximetry (%) 97 04/30/19 09:00 Constitutional: Yes: No Distress HENT: Yes: Atraumatic Neck: Yes: Supple Cardiovascular: Yes: Regular Rate and Rhythm Respiratory: Yes: CTA Bilaterally Gastrointestinal: Yes: Normal Bowel Sounds Extremities: Yes: WNL Neurological: Yes: Alert, Oriented Labs: CBC, BMP 04/29/19 19:00 04/29/19 19:00 Discharge Summary Reason For Visit: URINARY TRACT INFECTION Condition: Stable - Instructions Disposition: HOME - Home Medications Comprehensive Discharge Medication List: Ambulatory Orders Budesonide/Formeterol Fumarate [SYMBICORT 80/4.5mcg -] 2 puff IH BID inhaler Oxycodone HCl 30 mg PO Q6H PRN 02/26/19 dc home fu pmd /surgery...pts own
== END 2019-04-30 12:31 | disposition home or self-care (01) | DRG 466 ==
LOC: JER 13:10 → JERBED 19:58 → J7W 23:06
PROVIDERS: ADMIT Internal Medicine; ATTEND Internal Medicine
DX: N99.528 Other complication of incontinent external stoma of urinary tract (principal); N39.0 Urinary tract infection, site not specified; R10.30 Lower abdominal pain, unspecified; N18.9 Chronic kidney disease, unspecified; J44.9 Chronic obstructive pulmonary disease, unspecified; N13.30 Unspecified hydronephrosis; F41.8 Other specified anxiety disorders; E66.9 Obesity, unspecified; Z68.36 Body mass index [BMI] 36.0-36.9, adult; F17.210 Nicotine dependence, cigarettes, uncomplicated; Y83.9 Surgical procedure, unspecified as the cause of abnormal reaction of the patient, or of later complication, without mention of misadventure at the time of the procedure
CPT/HCPCS: 36415; 71046-TC-FY; 74176-TC; 80053; 81003; 82272; 83605; 83690; 84484; 84703; 85025; 85610; 85730; 86850; 86900; 86901; 87040; 87086; 93005; 93010; 99285-25

== ENCOUNTER 2019-05-26 15:06 | Emergency (ER) | payer OTHER ==
[2019-05-26 15:23] VITALS: BP 119/86; PULSE 74; TEMP 98.4; BMI 36.8
[2019-05-26] MEDS ORDERED: IBUPROFEN 400 MG TABLET (FP) PO ONE ×2 (15:34→15:39)
--- NOTE | 2019-05-26 15:40 | PDOC ---
History of Present Illness - General Chief Complaint: Injury Stated Complaint: R/O BROKEN TOE Time Seen by Provider: 05/26/19 15:23 History Source: Patient (left 4th toe pain after walking into a furniture at 4am today) Exam Limitations: No Limitations Past History - Travel Traveled outside of the country in the last 30 days: No - Past Medical History Allergies/Adverse Reactions: Allergies Allergy/AdvReac Type Severity Reaction Status Date / Time No Known Allergies Allergy Verified 05/26/19 15:20 Home Medications: Ambulatory Orders Ibuprofen 800 mg PO ACDIN 7 Days #21 tablet 05/26/19 Anemia: Yes Asthma: No Cancer: No Cardiac Disorders: No CVA: No COPD: Yes CHF: No Dementia: No Diabetes: No GI Disorders: No Disorders: Yes (Ileal Conduit, H/O KIDNEY STONES) HTN: No Hypercholesterolemia: No Kidney Stones: Yes (kidney failure) Liver Disease: No Seizures: No Thyroid Disease: No - Surgical History Abdominal Surgery: No Appendectomy: No Cardiac Surgery: No Cholecystectomy: No Lung Surgery: No Neurologic Surgery: No Orthopedic Surgery: No - Reproductive History (#): 0 Para: 0 - Immunization History Immunization Up to Date: Yes - Suicide/Smoking/Psychosocial Hx Smoking Status: No Smoking History: Current every day smoker Have you smoked in the past 12 months: Yes Number of Cigarettes Smoked Daily: 2 If you are a former smoker, when did you quit?: 1 Month ago Cigars Per Day: 0 Information on smoking cessation initiated: Yes 'Breaking Loose' booklet given: 02/25/19 Hx Alcohol Use: No Drug/Substance Use Hx: No Substance Use Type: None Hx Substance Use Treatment: No Review of Systems - Review of Systems Constitutional: No: Chills, Fever Musculoskeletal: Yes: Joint Pain (L 4th toe pain), Joint Swelling. No: Gout, Muscle Weakness, Joint Stiffness Neurological: No: Unsteady Gait *Physical Exam - Vital Signs Last Vital Signs Temp Pulse Resp BP Pulse Ox 98.4 F 74 18 119/86 100 05/26/19 15:20 05/26/19 15:20 05/26/19 15:20 05/26/19 15:20 05/26/19 15:20 - Physical Exam General Appearance: Yes: Nourished Extremity: positive: Normal Capillary Refill, Tender (left 4th toe, tenderness in entire shaft, limited ROM due to pain, distal pulse intact) Neurologic: positive: dance master II-XII NML intact, Fully Oriented, Alert, Normal Mood/ Affect, Normal Response, Motor Strength / ED Treatment Course - RADIOLOGY Radiology Studies Ordered: Category Date Time Status TOE(S) LEFT [RAD] Stat Radiology 05/26/19 15:34 Ordered Medical Decision Making - Medical Decision Making 05/26/19 15:39 43y/o F with left 4th toe pain after accidentally walking into a furniture at 4am today denies LOC or head trauma exam with tender toe xray nsaids xray with oblique fracture of 4th toe toe budding taped to neighboring toe post op shoe provided, crutches podiatry f/u as outpt 05/26/19 17:24 *DC/Admit/Observation/Transfer Diagnosis at time of Disposition: Toe fracture, left Qualifiers: Encounter type: initial encounter Toe: lesser toe Fracture type: closed Phalanx : middle Fracture alignment: nondisplaced Qualified Code(s): S92.525A - Nondisplaced fracture of middle phalanx of left lesser toe(s), initial encounter for closed fracture - Discharge Dispostion Disposition: HOME Condition at time of disposition: Stable Decision to Admit order: No - Prescriptions Prescriptions: Ibuprofen 800 mg PO ACDIN 7 Days #21 tablet - Referrals Referrals: Vicki Guan DO [Primary Care Provider] - Sherif Raymundo MD [Staff Physician] - Mathew Seaman [Non Staff, Medical] - - Patient Instructions Printed Discharge Instructions: Toe Fracture Additional Instructions: Your have a toe fracture please wear the hard shoe that was provided for you and use crutches till you see the foot doctor call tomorrow and make appointment take Motrin for pain return to the ER If worsening symptoms occurs - Post Discharge Activity
== END 2019-05-26 16:47 | disposition home or self-care (01) ==
LOC: JERFT 15:06
PROC: 2W3VXYZ Immobilization of Left Toe using Other Device (ICD-10-PCS; principal; 2019-05-26)
DX: S92.525A Nondisplaced fracture of middle phalanx of left lesser toe(s), initial encounter for closed fracture (principal); W22.01XA Walked into wall, initial encounter; Y93.89 Activity, other specified; Y92.008 Other place in unspecified non-institutional (private) residence as the place of occurrence of the external cause; F17.210 Nicotine dependence, cigarettes, uncomplicated; J44.9 Chronic obstructive pulmonary disease, unspecified
CPT/HCPCS: 29550; 73660-TC-LT-FY; 99281-25

== ENCOUNTER 2019-07-26 23:07 | Emergency (ER) | payer OTHER | END 2019-07-27 00:13 | disposition left against medical advice (07) | LOC: JER 07-27 00:13 ==

== ENCOUNTER 2019-07-28 19:37 | Emergency (ER) | payer OTHER ==
[2019-07-28 19:54] VITALS: TEMP 98.7; BMI 36.3
[2019-07-28 20:35] LABS: EPI CELLS 22.4 /HPF (0-5/HPF); HCG,QUALITATIVE URINE Negative; HYALINE CASTS 40 /lpf (0-8); PH,URINE 7.5 (5.0-8.0); URINE APPEARANCE CLOUDY; URINE BACTERIA 3392.6 /hpf (NEGATIVE); URINE BILIRUBIN NEGATIVE (NEGATIVE); URINE COLOR YELLOW; URINE GLUCOSE (UA) NEGATIVE (NEGATIVE); URINE KETONE NEGATIVE (NEGATIVE); URINE LEUK ESTERASE 1+ (NEGATIVE); URINE NITRITE POSITIVE (NEGATIVE); URINE PROTEIN 2+ (NEGATIVE); URINE RBC 2 /hpf (0-4); URINE WBC 9 /hpf (0-5)
[2019-07-28] MEDS ORDERED: SULFAMETHOXAZOLE/TRIMETHOPRIM 800MG/160MG D.S. TABLET PO ONE (21:01)
[2019-07-28] MEDS ORDERED: SULFAMETHOXAZOLE/TRIMETHOPRIM 800MG/160MG D.S. TABLET ONE (21:07)
[2019-07-28] MEDS ORDERED: morphine CARPU-JECT 2 MG/1 ML DISP.SYRIN IM ONE (21:19)
[2019-07-28] MEDS ORDERED: KETOROLAC TROMETHAMINE 60 MG/2 ML VIAL IM ONE (21:20)
[2019-07-28] MEDS ORDERED: KETOROLAC TROMETHAMINE 60 MG/2 ML VIAL ONE (21:23)
[2019-07-28] MEDS ORDERED: MORPHINE SULFATE 2 MG/ML VIAL ONE (21:23)
[2019-07-28] MEDS ORDERED: ONDANSETRON 4 MG TABLET PO ONE (21:34)
[2019-07-28] MEDS ORDERED: ONDANSETRON *ODT* 4 MG TABLET ONE (21:34)
--- NOTE | 2019-07-28 21:42 | PDOC ---
Documentation entered by Gary Charles SCRIBE, acting as scribe for Yasmin Ellis MD. Yasmin Ellis MD: This documentation has been prepared by the Melvin escoto Daniel, SCRIBE, under my direction and personally reviewed by me in its entirety. I confirm that the documentation accurately reflects all work, treatment, procedures, and medical decision making performed by me. History of Present Illness - General Chief Complaint: Pain Stated Complaint: ABD PAIN/VOMITING Time Seen by Provider: 07/28/19 20:17 History Source: Patient Exam Limitations: No Limitations - History of Present Illness Initial Comments: 07/28/19 21:15 The patient is a 43 year old female with a past medical history of kidney stones here today for evaluation of lower abdominal pain. The patient reports that she has 4 days of constant lower abdominal pain. She notes that she also has bilateral lower mid back pain and increase urinary frequency. She states that this feels like her kidney stones, tylenol provides no relief, and drinking water hasnt helped either. Patient denies headache, lightheadedness. Denies fever, chills. Denies chest pain, shortness of breath. Denies nausea, vomiting, diarrhea. Allergies: NKA Social history: Patient is a current 3-4 cigarettes a day smoker. Past History - Past Medical History Allergies/Adverse Reactions: Allergies Allergy/AdvReac Type Severity Reaction Status Date / Time No Known Allergies Allergy Verified 07/28/19 19:50 Home Medications: Ambulatory Orders Ibuprofen 800 mg PO ACDIN 7 Days #21 tablet 05/26/19 Sulfamethoxazole/Trimethoprim [Bactrim Ds -] 1 tab PO BID #14 tablet 07/28/19 Anemia: Yes Asthma: No Cancer: No Cardiac Disorders: No CVA: No COPD: Yes CHF: No Dementia: No Diabetes: No GI Disorders: No Disorders: Yes (Ileal Conduit, H/O KIDNEY STONES) HTN: No Hypercholesterolemia: No Kidney Stones: Yes (kidney failure) Liver Disease: No Seizures: No Thyroid Disease: No - Surgical History Abdominal Surgery: No Appendectomy: No Cardiac Surgery: No Cholecystectomy: No Lung Surgery: No Neurologic Surgery: No Orthopedic Surgery: No - Reproductive History Is Patient Now?: No (#): 0 Para: 0 - Immunization History Immunization Up to Date: Yes - Suicide/Smoking/Psychosocial Hx Smoking Status: No Smoking History: Current every day smoker Have you smoked in the past 12 months: Yes Number of Cigarettes Smoked Daily: 10 If you are a former smoker, when did you quit?: 1 Month ago Cigars Per Day: 0 Information on smoking cessation initiated: No 'Breaking Loose' booklet given: 02/25/19 Hx Alcohol Use: No Drug/Substance Use Hx: No Substance Use Type: None Hx Substance Use Treatment: No Review of Systems - Review of Systems Able to Perform ROS?: Yes Comments:: 07/28/19 21:17 GENERAL/CONSTITUTIONAL: No fever or chills. No weakness. HEAD, EYES, EARS, NOSE AND THROAT: No change in vision. No ear pain or discharge. No sore throat. CARDIOVASCULAR: No chest pain or shortness of breath. RESPIRATORY: No cough, wheezing, or hemoptysis. GASTROINTESTINAL: +abdominal pain. No nausea, vomiting, diarrhea or constipation. GENITOURINARY: +increased urinary frequency. No dysuria. MUSCULOSKELETAL: +back pain. No joint or muscle swelling or pain. No neck pain. SKIN: No rash NEUROLOGIC: No headache, vertigo, loss of consciousness, or change in strength/ sensation. ENDOCRINE: No increased thirst. No abnormal weight change. HEMATOLOGIC/LYMPHATIC: No anemia, easy bleeding, or history of blood clots. ALLERGIC/IMMUNOLOGIC: No hives or skin allergy. *Physical Exam - Vital Signs Last Vital Signs Temp Pulse Resp BP Pulse Ox 98.7 F 81 17 142/105 H 99 07/28/19 19:51 07/28/19 19:51 07/28/19 19:51 07/28/19 19:51 07/28/19 19:51 - Physical Exam Comments: 07/28/19 21:17 GENERAL: Awake, alert, and fully oriented, in no acute distress HEAD: No signs of trauma EYES: PERRLA, EOMI, sclera anicteric, conjunctiva clear ENT: Auricles normal inspection, hearing grossly normal, nares patent, oropharynx clear without exudates. Moist mucosa NECK: Normal ROM, supple, no lymphadenopathy, JVD, or masses LUNGS: Breath sounds equal, clear to auscultation bilaterally. No wheezes, and no crackles HEART: Regular rate and rhythm, normal S1 and S2, no murmurs, rubs or gallops ABDOMEN: +right sided abdominal tenderness. +right sided suprapubic tenderness. No flank tenderness. Soft, normoactive bowel sounds. No guarding, no rebound. No masses EXTREMITIES: Normal range of motion, no edema. No clubbing or cyanosis. No cords, erythema, or tenderness NEUROLOGICAL: Cranial nerves II through XII grossly intact. Normal speech, normal gait SKIN: Warm, Dry, normal turgor, no rashes or lesions noted. ED Treatment Course - LABORATORY CBC & Chemistry Diagram: 07/28/19 22:17 07/28/19 22:17 - ADDITIONAL ORDERS Additional order review: Laboratory Results 07/28/19 20:20 Urine Color Yellow Urine Appearance Cloudy Urine pH 7.5 Ur Specific [place] 1.012 Urine Protein 2+ H Urine Glucose (UA) Negative Urine Ketones Negative Urine Blood Trace Urine Nitrite Positive H Urine Bilirubin Negative Urine Urobilinogen 1.0 Ur Leukocyte Esterase 1+ H Urine WBC (Auto) 9 Urine RBC (Auto) 2 Urine Casts (Auto) 40 U Pathogenic Cast Auto None U Epithel Cells (Auto) 22.4 U Sm Round Cell (Auto) None Urine Bacteria (Auto) 3392.6 Urine HCG, Qual Negative - Medications Given in the ED: ED Medications Discontinued Medications Generic Name Dose Route Start Last Admin Trade Name Freq PRN Reason Stop Dose Admin Ketorolac Tromethamine 60 mg 07/28/19 21:20 07/28/19 21:28 Toradol Injection - IM 07/28/19 21:21 60 mg ONCE ONE Administration Morphine Sulfate 2 mg 07/28/19 21:19 07/28/19 21:28 Morphine Injection - IM 07/28/19 21:20 2 mg ONCE ONE Administration Ondansetron HCl 4 mg 07/28/19 21:34 07/28/19 21:35 Zofran - PO 07/28/19 21:35 4 mg ONCE ONE Administration Oxycodone/Acetaminophen 2 combo 07/28/19 21:01 07/28/19 21:12 Percocet 5/325 - PO 07/28/19 21:02 Not Given ONCE ONE Trimethoprim/Sulfamethoxazole 1 each 07/28/19 21:01 07/28/19 21:11 Bactrim Ds - PO 07/28/19 21:02 1 each ONCE ONE Administration Medical Decision Making - Medical Decision Making 07/28/19 21:40 Pt refusing percocet; so I will treat with morphine and toradol IM. Pt has no ketonuria and she is eating and drinking and tolerating PO and comfortable and well hydrated. I will not start an IV line and she will also not require IV NSS at this time. I will not check labs as she checks her labs multiple times annually. 07/28/19 23:42 Pt is feeling better and she has normal labs. She is stable for discharge home. Diagnosis: UTI *DC/Admit/Observation/Transfer Diagnosis at time of Disposition: Urinary tract infection - Discharge Dispostion Disposition: HOME Condition at time of disposition: Improved Decision to Admit order: No - Prescriptions Prescriptions: Sulfamethoxazole/Trimethoprim [Bactrim Ds -] 1 tab PO BID #14 tablet - Referrals - Patient Instructions Printed Discharge Instructions: Urinary Tract Infection - Post Discharge Activity
[2019-07-28] MEDS ORDERED: SODIUM CHLORIDE 0.9% 500 ML INFUS.BAG IV ONE (22:30)
[2019-07-28 22:38] LABS: BASO % 1.1 % (0-2.0); EOS % 7.7 % (0-4.5); HEMATOCRIT 37.4 % (32.4-45.2); HEMOGLOBIN 12.8 GM/dL (10.7-15.3); LYMPH % 23.7 % (8-40); MCH 30.3 pg (25.7-33.7); MCHC 34.3 g/dl (32.0-36.0); MEAN CELL VOLUME 88.3 fl (80-96); MEAN PLT VOLUME 9.5 fl (7.5-11.1); MONO % 6.5 % (3.8-10.2); PLATELET COUNT 262 K/MM3 (134-434); RBC 4.24 M/mm3 (3.60-5.2); RDW 15.3 % (11.6-15.6); WHITE BLOOD COUNT 6.7 K/mm3 (4.0-10.0)
[2019-07-28] MEDS ORDERED: HYDROmorphone HCL CARPU-JECT 2 MG/1 ML DISP.SYRIN IVPUSH ONE (23:02)
[2019-07-28] MEDS ORDERED: HYDROmorphone HCl 2 MG/ML VIAL ONE (23:03)
[2019-07-28 23:13] VITALS: BP 125/66; PULSE 66
[2019-07-28 23:19] LABS: BILIRUBIN,TOTAL 0.4 mg/dL (0.2-1); BLOOD UREA NITROGEN 21.3 mg/dL (7-18); CALCIUM 9.1 mg/dL (8.5-10.1); CREATININE 1.9 mg/dL (0.55-1.3); POTASSIUM 4.8 mmol/L (3.5-5.1)
== END 2019-07-28 23:47 | disposition home or self-care (01) ==
LOC: JER 19:37
PROC: 3E033NZ Introduction of Analgesics, Hypnotics, Sedatives into Peripheral Vein, Percutaneous Approach (ICD-10-PCS; principal; 2019-07-28)
PROC: 3E0233Z Introduction of Anti-inflammatory into Muscle, Percutaneous Approach (ICD-10-PCS; 2019-07-28)
PROC: 3E023NZ Introduction of Analgesics, Hypnotics, Sedatives into Muscle, Percutaneous Approach (ICD-10-PCS; 2019-07-28)
DX: N39.0 Urinary tract infection, site not specified (principal); J44.9 Chronic obstructive pulmonary disease, unspecified; Z87.442 Personal history of urinary calculi
CPT/HCPCS: 36415; 80053; 81003; 83690; 84703; 85025; 87086; 96372; 96374; 99283-25

== ENCOUNTER 2019-09-06 23:54 | Emergency (ER) | payer OTHER ==
[2019-09-07] VITALS: BMI 35.5
[2019-09-07 01:20] LABS: BASO % 0.9 % (0-2.0); EOS % 13.1 % (0-4.5); HEMATOCRIT 41.5 % (32.4-45.2); LYMPH % 21.3 % (8-40); MCH 30.1 pg (25.7-33.7); MCHC 33.8 g/dl (32.0-36.0); MEAN CELL VOLUME 88.9 fl (80-96); MEAN PLT VOLUME 9.3 fl (7.5-11.1); MONO % 5.8 % (3.8-10.2); NEUT % 58.9 % (42.8-82.8); PLATELET COUNT 254 K/MM3 (134-434); RBC 4.67 M/mm3 (3.60-5.2); RDW 15.5 % (11.6-15.6); WHITE BLOOD COUNT 8.3 K/mm3 (4.0-10.0)
[2019-09-07 01:29] LABS: EPI CELLS 2.4 /HPF (0-5/HPF); HYALINE CASTS 32 /lpf (0-8); URINE APPEARANCE CLOUDY; URINE BACTERIA 3015.3 /hpf (NEGATIVE); URINE BILIRUBIN NEGATIVE (NEGATIVE); URINE COLOR YELLOW; URINE GLUCOSE (UA) NEGATIVE (NEGATIVE); URINE KETONE NEGATIVE (NEGATIVE); URINE LEUK ESTERASE TRACE (NEGATIVE); URINE NITRITE NEGATIVE (NEGATIVE); URINE PROTEIN 2+ (NEGATIVE); URINE RBC 5 /hpf (0-4); URINE UROBILINOGEN 0.2 mg/dL (0.2-1.0); URINE WBC 48 /hpf (0-5)
[2019-09-07] MEDS ORDERED: ALBUTEROL SO4 2.5/IPRATROPIUM 0.5 INH SOL 3 ML VIAL.NEB. NEB ONE ×2 (01:31→01:35)
[2019-09-07] MEDS ORDERED: SODIUM CHLORIDE 1,000 ML IV ONE (01:34)
[2019-09-07] MEDS ORDERED: ONDANSETRON 4 MG/2 ML VIAL IVPB ONE (01:34)
--- NOTE | 2019-09-07 01:34 | PDOC ---
Documentation entered by Ashley Marks SCRIBE, acting as scribe for Yogi Avalos MD. Yogi Avalos MD: This documentation has been prepared by the Kendrick escoto Lincy, SCRIBE, under my direction and personally reviewed by me in its entirety. I confirm that the documentation accurately reflects all work, treatment, procedures, and medical decision making performed by me. History of Present Illness - General Chief Complaint: Pain Stated Complaint: COLD, PAIN Time Seen by Provider: 09/07/19 00:04 History Source: Patient Exam Limitations: No Limitations - History of Present Illness Initial Comments: 09/07/19 01:18 The patient is a 44 year old female with a past medical history significant for COPD, Endometriosis, asthma CKD, hx of multiple nephrolithiasis s/p internal kidney stents (removed secondary to infection, s/p bilateral nephrostomy tubes ( removed because it kept falling out), s/p right lower quadrant urostomy with urinary diversion (surgery done in [facility]) who presents to the emergency department with abdominal pain. The patient presents with right lower quadrant pain that radiates down to the right thigh, no relief noted with Tylenol. The patient reports associated symptoms of malodorous urine. The patient reports she was seen at an ER 2 weeks ago, was diagnosed with a UTI and prescribed Bactrim, reports she finished the course, no relief pain. The patient reports an additional complaint of runny nose, congestion, cough with clear phlegm production, shortness of breath, chills, nausea, and vomiting, last emesis episode was about an hour ago. Denies chest pain. Allergies: NKDA Surgical history: Ovarian cyst x2, urostomy, Kidney stents, Nephrostomy tubes. Social history: Former smoker, no reported history of alcohol or recreational drug use. PCP: Dr. Guan Urologist: Dr. Malik Castillo. 09/07/19 01:33 Is this a multiple visit Asthma Patient?: No Past History - Past Medical History Allergies/Adverse Reactions: Allergies Allergy/AdvReac Type Severity Reaction Status Date / Time No Known Allergies Allergy Verified 09/07/19 02:54 Home Medications: Ambulatory Orders Budesonide/Formeterol Fumarate [SYMBICORT 160/4.5mcg -] 2 inh PO DAILY 09/07/19 Sulfamethoxazole/Trimethoprim [Bactrim Ds -] 1 tab PO BID #14 tablet 09/07/19 Anemia: Yes Asthma: No Cancer: No Cardiac Disorders: No CVA: No COPD: Yes CHF: No Dementia: No Diabetes: No GI Disorders: No Disorders: Yes (Ileal Conduit, H/O KIDNEY STONES) HTN: No Hypercholesterolemia: No Kidney Stones: Yes (kidney failure) Liver Disease: No Seizures: No Thyroid Disease: No - Surgical History Abdominal Surgery: No Appendectomy: No Cardiac Surgery: No Cholecystectomy: No Lung Surgery: No Neurologic Surgery: No Orthopedic Surgery: No - Reproductive History (#): 0 Para: 0 - Immunization History Immunization Up to Date: Yes - Psycho Social/Smoking Cessation Hx Smoking Status: No Smoking History: Never smoked Have you smoked in the past 12 months: Yes Number of Cigarettes Smoked Daily: 10 If you are a former smoker, when did you quit?: 1 Month ago Cigars Per Day: 0 'Breaking Loose' booklet given: 02/25/19 Hx Alcohol Use: No Drug/Substance Use Hx: No Substance Use Type: None Hx Substance Use Treatment: No Review of Systems - Review of Systems Able to Perform ROS?: Yes Comments:: 09/07/19 01:19 Constitutional - +chills, Pt denies Fever, weakness. HEENT: +runny nose, congestion. denies vision changes, sore throat Respiratory: +cough, shortness of breath. Denies hemoptysis Cardiac: denies chest pain, palpitations, lightheadedness, leg swelling Abd/GI: +abdominal pain, nausea, vomiting. Denies diarrhea or blood per rectum. : +malodorous urine. Denies hematuria. Musculoskeletal - denies back pain, joint swelling Skin: Denies bruising, erythema, rash neurological: denies headache, numbness, focal weakness, tingling, ataxia, weakness hematologic: denies anemia, easy bruising, easy bleeding *Physical Exam - Vital Signs Last Vital Signs Temp Pulse Resp BP Pulse Ox 98.3 F 84 18 139/107 H 93 L 09/06/19 23:57 09/06/19 23:57 09/06/19 23:57 09/06/19 23:57 09/06/19 23:57 - Physical Exam Comments: 09/07/19 01:32 GENERAL: The patient is awake, alert, and fully oriented, Nontoxic - in no acute distress. HEAD: Normocephalic, atraumatic. EYES: extraocular movements intact, sclera anicteric, conjunctiva clear. ENT: Normal voice, Moist mucous membranes. NECK: Normal range of motion, supple LUNGS: Breath sounds equal, clear to auscultation bilaterally. No wheezes, no rhonchi, no rales. HEART: Regular rate and rhythm, normal S1 and S2 without murmur, rub or gallop. ABDOMEN: Soft, nontender, urostomy in place with clear urine in bag, no cva tenderness EXTREMITIES: Normal range of motion, no edema. NEUROLOGICAL: No facial assymetry, Normal speech, PSYCH: Normal mood, normal affect. SKIN: Warm, Dry, normal turgor, ED Treatment Course - LABORATORY CBC & Chemistry Diagram: 09/07/19 01:10 09/07/19 01:10 Medical Decision Making - Medical Decision Making 09/07/19 00:24 abd pain - abd soft nontender, andrez r/o uti - will ck labs sob/cough - suspec uri with mild asthma will give albuterol and obtin cxr 09/07/19 02:39 Patient's labs were reviewed, there were no signs of leukocytosis, UA nonspecific. Will obtain CT of abdomen to further evaluate her abdominal pain due to extensive surgical history also will rule out pyelonephritis. If the patient's CT is suggestive of Pylo will admit the patient for failure of outpatient treatment of UTI. If the CT is unremarkable and patient is feeling better we will discharge the patient to await urine culture and sensitivities The case was signed out to Dr. Ellis in the evening team to reassess and dispo the patient The patient's respiratory status is improved awaiting recheck of her vital signs Her chest x-ray is clear without signs of pneumonia Discharge - Discharge Information Clinical Impression/Diagnosis: Renal colic on right side Condition: Improved Disposition: HOME - Admission No - Additional Discharge Information Prescriptions: Sulfamethoxazole/Trimethoprim [Bactrim Ds -] 1 tab PO BID #14 tablet - Follow up/Referral Referrals: Vicki Guan DO [Primary Care Provider] - - Patient Discharge Instructions Patient Printed Discharge Instructions: Eating a Diet Rich in Fruits and Vegetables, Kidney Stones -- Adult - Post Discharge Activity
[2019-09-07 01:43] LABS: ALBUMIN 3.4 g/dl (3.4-5.0); BILIRUBIN,TOTAL 0.4 mg/dL (0.2-1); BLOOD UREA NITROGEN 19.5 mg/dL (7-18); CALCIUM 9.2 mg/dL (8.5-10.1); POTASSIUM 3.9 mmol/L (3.5-5.1); TOT PROT 7.2 g/dl (6.4-8.2)
[2019-09-07] MEDS ORDERED: ONDANSETRON 4 MG/2 ML VIAL ONE (02:00)
[2019-09-07] MEDS ORDERED: morphine CARPU-JECT 2 MG/1 ML DISP.SYRIN IVPUSH ONE (05:28)
--- NOTE | 2019-09-07 05:30 | PDOC ---
*Physical Exam - Vital Signs Last Vital Signs Temp Pulse Resp BP Pulse Ox 97.5 F L 82 18 133/98 96 09/07/19 04:53 09/07/19 04:53 09/07/19 04:53 09/07/19 04:53 09/07/19 04:53 ED Treatment Course - LABORATORY CBC & Chemistry Diagram: 09/07/19 01:10 09/07/19 01:10 - ADDITIONAL ORDERS Additional order review: Laboratory Results 09/07/19 09/07/19 09/07/19 01:10 01:02 01:02 Sodium 142 Potassium 3.9 Chloride 109 H Carbon Dioxide 27 Anion Gap 6 L BUN 19.5 H Creatinine 2.0 H Est GFR (CKD-EPI)AfAm 34.08 Est GFR (CKD-EPI)NonAf 29.41 Random Glucose 57 L Calcium 9.2 Total Bilirubin 0.4 AST 20 ALT 29 Alkaline Phosphatase 74 Total Protein 7.2 Albumin 3.4 Urine Color Yellow Urine Appearance Cloudy Urine pH 8.0 Ur Specific [place] 1.011 Urine Protein 2+ H Urine Glucose (UA) Negative Urine Ketones Negative Urine Blood Trace Urine Nitrite Negative Urine Bilirubin Negative Urine Urobilinogen 0.2 Ur Leukocyte Esterase Trace Urine WBC (Auto) 48 Urine RBC (Auto) 5 Urine Casts (Auto) 32 U Pathogenic Cast Auto Review A* U Epithel Cells (Auto) 2.4 Urine Bacteria (Auto) 3015.3 Urine HCG, Qual Negative 09/07/19 01:10 RBC 4.67 MCV 88.9 MCHC 33.8 RDW 15.5 MPV 9.3 Neutrophils % 58.9 Lymphocytes % 21.3 Monocytes % 5.8 Eosinophils % 13.1 H Basophils % 0.9 - Medications Given in the ED: ED Medications Discontinued Medications Generic Name Dose Route Start Last Admin Trade Name Freq PRN Reason Stop Dose Admin Albuterol/Ipratropium 1 amp 09/07/19 01:31 09/07/19 01:54 Duoneb - NEB 09/07/19 01:32 1 amp ONCE ONE Administration Sodium Chloride 1,000 mls @ 1,000 mls/hr 09/07/19 01:34 09/07/19 02:09 Normal Saline - IV 09/07/19 02:33 1,000 mls/hr .Q1H ONE Administration Ondansetron HCl 4 mg 09/07/19 01:34 09/07/19 02:09 Zofran Injection IVPB 09/07/19 01:35 4 mg ONCE ONE Administration Medical Decision Making - Medical Decision Making 09/08/19 00:17 Pt is stable for discharge. She will treat herself on an outpatient basis and follow with her urologists at [facility]. Discharge - Discharge Information Problems reviewed: Yes Clinical Impression/Diagnosis: Renal colic on right side Condition: Improved Disposition: HOME - Admission No - Additional Discharge Information Prescriptions: Sulfamethoxazole/Trimethoprim [Bactrim Ds -] 1 tab PO BID #14 tablet - Follow up/Referral Referrals: Vicki Guan DO [Primary Care Provider] - - Patient Discharge Instructions Patient Printed Discharge Instructions: Eating a Diet Rich in Fruits and Vegetables, Kidney Stones -- Adult - Post Discharge Activity
[2019-09-07] MEDS ORDERED: MORPHINE SULFATE 2 MG/ML VIAL ONE (05:34)
[2019-09-07 05:49] VITALS: BP 153/96; PULSE 73; TEMP 97.4
== END 2019-09-07 05:49 | disposition home or self-care (01) ==
LOC: JER 23:54
PROC: 3E0F7GC Introduction of Other Therapeutic Substance into Respiratory Tract, Via Natural or Artificial Opening (ICD-10-PCS; principal; 2019-09-06)
PROC: 3E033GC Introduction of Other Therapeutic Substance into Peripheral Vein, Percutaneous Approach (ICD-10-PCS; 2019-09-06)
PROC: 3E033NZ Introduction of Analgesics, Hypnotics, Sedatives into Peripheral Vein, Percutaneous Approach (ICD-10-PCS; 2019-09-06)
DX: N23 Unspecified renal colic (principal); J06.9 Acute upper respiratory infection, unspecified; J45.909 Unspecified asthma, uncomplicated; J44.9 Chronic obstructive pulmonary disease, unspecified; N18.9 Chronic kidney disease, unspecified; Z87.42 Personal history of other diseases of the female genital tract; Z87.442 Personal history of urinary calculi
CPT/HCPCS: 36415; 71046-TC-FY; 74176-TC; 80053; 81003; 84703; 85025; 87086; 94640; 96374; 96375; 99284-25; J7030

== ENCOUNTER 2020-01-30 10:42 | Emergency (ER) | payer OTHER ==
[2020-01-30 11:26] VITALS: BP 106/72; PULSE 61; TEMP 98.1; BMI 29.8
--- NOTE | 2020-01-30 11:35 | PDOC ---
History of Present Illness - General Chief Complaint: Pain, Acute Stated Complaint: abdominal pain Time Seen by Provider: 01/30/20 11:34 - History of Present Illness Initial Comments: 01/30/20 12:38 44 y/o F hx of endometriosis, copd, asthma, CKD, urostomy , colostomy bag s/p hysterectomy a month ago, presents to the ED with abdominal pain and wounds to abdomen. She reports she was discharged recently from [facility] after spending a month at [facility] where he had the hysterectomy.She reports abdominal pain, nausea and vomiting x 1 day. She denies fevers or chills, shortness of breath, drainage of pus from her wound. She reports she has pain medications prescribed by her surgeon after her surgery which she did not take before coming to the emergency room. 01/30/20 12:44 01/30/20 12:47 01/30/20 15:08 01/30/20 15:11 01/31/20 11:02 Past History - Past Medical History Allergies/Adverse Reactions: Allergies Allergy/AdvReac Type Severity Reaction Status Date / Time No Known Allergies Allergy Verified 09/07/19 02:54 Home Medications: Ambulatory Orders Budesonide/Formeterol Fumarate [SYMBICORT 160/4.5mcg -] 2 inh PO DAILY 09/07/19 Sulfamethoxazole/Trimethoprim [Bactrim Ds -] 1 tab PO BID #14 tablet 09/07/19 Anemia: Yes Asthma: No Cancer: No Cardiac Disorders: No CVA: No COPD: Yes CHF: No Dementia: No Diabetes: No GI Disorders: No Disorders: Yes (Ileal Conduit, H/O KIDNEY STONES) HTN: No Hypercholesterolemia: No Kidney Stones: Yes (kidney failure) Liver Disease: No Seizures: No Thyroid Disease: No - Surgical History Abdominal Surgery: No Appendectomy: No Cardiac Surgery: No Cholecystectomy: No Lung Surgery: No Neurologic Surgery: No Orthopedic Surgery: No - Reproductive History (#): 0 Para: 0 - Immunization History Immunization Up to Date: Yes - Psycho Social/Smoking Cessation Hx Smoking Status: No Smoking History: Former smoker Have you smoked in the past 12 months: No Number of Cigarettes Smoked Daily: 10 If you are a former smoker, when did you quit?: 1 Month ago Cigars Per Day: 0 Information on smoking cessation initiated: No 'Breaking Loose' booklet given: 02/25/19 Hx Alcohol Use: No Drug/Substance Use Hx: No Substance Use Type: None Hx Substance Use Treatment: No Review of Systems - Review of Systems Constitutional: No: Chills, Fever HEENTM: No: Eye Pain, Blurred Vision Respiratory: No: Cough, Shortness of Breath Cardiac (ROS): No: Chest Pain, Irregular Heart Rate ABD/GI: Yes: Nausea, Vomiting Musculoskeletal: No: Back Pain, Joint Pain Integumentary: No: Pruritus, Rash Neurological: No: Headache, Numbness *Physical Exam - Vital Signs Last Vital Signs Temp Pulse Resp BP Pulse Ox 98.1 F 61 20 106/72 96 01/30/20 11:21 01/30/20 11:21 01/30/20 11:21 01/30/20 11:21 01/30/20 11:21 - Physical Exam 01/30/20 12:33 GENERAL: Awake, alert,fully oriented HEAD: No signs of trauma, normocephalic, atraumatic EYES: PERRL EOMI, sclera anicteric, conjunctiva clear ENT: Auricles normal inspection, hearing grossly normal, nares patent, oropharynx clear without exudates. Moist mucosa NECK: Normal ROM, supple, no lymphadenopathy, JVD, or masses LUNGS: No distress, speaks full sentences, clear to auscultation bilaterally HEART: Regular rate and rhythm, normal S1 and S2, no murmurs, rubs or gallops ABDOMEN:urostomy bag in left lower quadrant with clear urine, colostomy bag on right with dark brown watery stool. wound at umbilicus packed with gauze.on removal of gauze, granulation tissue present, mild smell. diffuse tenderness to palpation no guarding EXTREMITIES : Normal inspection, Normal range of motion, no edema. No clubbing or cyanosis NEUROLOGICAL: Cranial nerves II through XII grossly intact. Normal speech, SKIN: Warm, Dry, normal turgor, (exception of lower abdomen) 01/31/20 11:04 ED Treatment Course - LABORATORY CBC & Chemistry Diagram: 01/30/20 11:45 01/30/20 11:45 Medical Decision Making - Medical Decision Making 01/30/20 12:37 44 y/o F hx of endometriosis, copd, asthma, CKD, urostomy , colostomy bag s/p hysterectomy a month ago, presents to the ED with abdominal pain and wounds to abdomen ddx: partial sbo vs mesenteric ischemia chronic abdominal pain vs other post- op complications workup: cbc,cmp. lactic acid, blood cultures, pt/inr, ptt 01/30/20 17:58 pt with cholelithiasis on adbdominal cT same as findings in 2018 pt has received 4mg of morphine for pain no concerning findings on labs pt can be d/c home. 01/31/20 11:04 Discharge - Discharge Information Problems reviewed: Yes Clinical Impression/Diagnosis: Gallstones Condition: Stable Disposition: HOME - Follow up/Referral Referrals: Vicki Guan DO [Primary Care Provider] - - Patient Discharge Instructions Additional Instructions: you were seen in the ER for abdominal pain and wounds your wounds do not look infected. follow up with your surgeon, your urologist and wound care doctor as indicated for any issues. RETURN TO THE ER. if you develop fevers, chills, your wound begins to drain pus. - Post Discharge Activity
[2020-01-30 12:09] LABS: BASO % 0.4 % (0-2.0); EOS % 0.3 % (0-4.5); HEMATOCRIT 32.7 % (32.4-45.2); LYMPH % 18.4 % (8-40); MCH 29.7 pg (25.7-33.7); MCHC 33.7 g/dl (32.0-36.0); MEAN CELL VOLUME 87.9 fl (80-96); MEAN PLT VOLUME 7.3 fl (7.5-11.1); MONO % 10.1 % (3.8-10.2); NEUT % 70.8 % (42.8-82.8); PLATELET COUNT 348 K/MM3 (134-434); RBC 3.72 M/mm3 (3.60-5.2); RDW 15.7 % (11.6-15.6); WHITE BLOOD COUNT 5.6 K/mm3 (4.0-10.0)
--- NOTE | 2020-01-30 12:09 | PDOC ---
Attending Attestation - Resident Resident Name: Bethel Silva - ED Attending Attestation I have performed the following: I have examined & evaluated the patient, The case was reviewed & discussed with the resident, I agree w/resident's findings & plan, Exceptions are as noted - HPI HPI: 01/30/20 12:05 44y F hx of COPD, ckd, sp urostomy bag, endometriosis sp hysterectomy c/b ?perf sp colostomy presents with complaint of abdominal pain and possible wound infection. Per the patient, she had a nurse come by who thought the patient's wound may be infected so sent the patient to the ED for evaluation. The patient also endorses mild diffuse lower abdominal pain associated with some vomiting. Patient denies any fever, chills, change in the output from her colostomy or urostomy. Patient notes that the pain is in the mid abdomen and diffuse, nonradiating. Patient denies any chest pain, shortness of breath, cough, lightheadedness. Exam: GENERAL: The patient is awake, alert, and fully oriented, Nontoxic - in no acute distress. HEAD: Normocephalic, atraumatic. EYES: extraocular movements intact, sclera anicteric, conjunctiva clear. ENT: Normal voice, Moist mucous membranes. NECK: Normal range of motion, supple LUNGS: Breath sounds equal, clear to auscultation bilaterally. No wheezes, no rhonchi, no rales. HEART: Regular rate and rhythm, normal S1 and S2 without murmur, rub or gallop. ABDOMEN: Urostomy and colostomy in place, open wound wound in the midline with borders that appear clean dry intact, not warm, indurated, no discharge, larger suprapubic wound that appears to be healing well without any foul-smelling discharge, erythema, induration, fluctuance. Patient's abdomen is otherwise mildly tender diffusely. EXTREMITIES: Normal range of motion, no edema. NEUROLOGICAL: No facial assymetry, Normal speech, PSYCH: Normal mood, normal affect. SKIN: Warm, Dry, normal turgor, The patient's wound appears to be healing well however the patient does have abdominal pain it is unclear what her abdominal pain is secondary to postop complication or her chronic abdominal pain. We will obtain blood work, analgesic. Anticipate imaging to further evaluate a cause of her pain - Physicial Exam PE: 01/30/20 17:54 see above - Medical Decision Making 01/30/20 14:48 The patient's lab work was reviewed no signs of leukocytosis, electrolytes were normal. The patient's UA likely due to colonization. Awaiting CT of the abdomen further evaluate 01/30/20 17:54 ct results reviewed noted for cholelitaisis Discharge - Follow up/Referral Referrals: Vicki Guan DO [Primary Care Provider] - - Patient Discharge Instructions - Post Discharge Activity
[2020-01-30 12:17] LABS: INR 1.24 (0.83-1.09); PROTHROMBIN TIME (PATIENT) 14.7 SEC (9.7-13.0)
[2020-01-30 12:18] LABS: PH,URINE 7.5 (5.0-8.0); URINE APPEARANCE TURBID; URINE BILIRUBIN NEGATIVE (NEGATIVE); URINE COLOR YELLOW; URINE GLUCOSE (UA) NEGATIVE (NEGATIVE); URINE KETONE TRACE (NEGATIVE); URINE LEUK ESTERASE 2+ (NEGATIVE); URINE NITRITE NEGATIVE (NEGATIVE); URINE PROTEIN 2+ (NEGATIVE); URINE UROBILINOGEN 0.2 mg/dL (0.2-1.0)
[2020-01-30 12:20] LABS: ACTIVATED PTT 29.3 SECONDS (25.2-36.5)
[2020-01-30 12:38] LABS: ALBUMIN 1.6 g/dl (3.4-5.0); BILIRUBIN,TOTAL 0.6 mg/dL (0.2-1); CALCIUM 8.5 mg/dL (8.5-10.1); POTASSIUM 3.5 mmol/L (3.5-5.1); TOT PROT 7.7 g/dl (6.4-8.2)
[2020-01-30] MEDS ORDERED: morphine CARPU-JECT 4 MG/1 ML DISP.SYRIN IVPUSH ONE ×2 (12:43→15:10)
[2020-01-30] MEDS ORDERED: MORPHINE SULFATE 2 MG/ML VIAL ONE ×2 (12:45→15:14)
[2020-01-30 12:55] LABS: ANISOCYTOSIS 1+; MACROCYTOSIS 0; OVALOCYTE 1+; PLATELET ESTIMATE NORMAL
== END 2020-01-30 18:07 | disposition home or self-care (01) ==
LOC: JER 10:42
PROC: 3E033NZ Introduction of Analgesics, Hypnotics, Sedatives into Peripheral Vein, Percutaneous Approach (ICD-10-PCS; principal; 2020-01-30)
DX: K80.20 Calculus of gallbladder without cholecystitis without obstruction (principal); J44.9 Chronic obstructive pulmonary disease, unspecified; N18.9 Chronic kidney disease, unspecified; J45.998 Other asthma; Z93.3 Colostomy status; Z93.6 Other artificial openings of urinary tract status; Z87.891 Personal history of nicotine dependence; Z87.442 Personal history of urinary calculi
CPT/HCPCS: 36415; 74176-TC; 80053; 81003; 83605; 85025; 85610; 85730; 87040; 99284-25

== ENCOUNTER 2020-07-28 16:08 | Inpatient (IN) | payer OTHER ==
[2020-07-28 16:34] VITALS: BMI 14.6
[2020-07-28] MEDS ORDERED: SODIUM CHLORIDE 0.9% 500 ML INFUS.BAG IV ONE (17:00)
--- NOTE | 2020-07-28 17:00 | PDOC ---
History of Present Illness - General Chief Complaint: Blood Pressure Problem Stated Complaint: ABNORMAL LABS - History of Present Illness Initial Comments: 44 YOF h/o JULIO and cerebral [facility] vital signs and elevated creatinine. Per EMS patient was found to lethargic, hypotensive, and tachycardic by [facility] staff this AM. Labs were drawn and she was found to have creatinine of 11. Patient denies CP, SOB, N/V/D, fever or chills. 07/28/20 20:27 Past History - Medical History Allergies/Adverse Reactions: Allergies Allergy/AdvReac Type Severity Reaction Status Date / Time meropenem AdvReac Intermediate Verified 05/06/20 11:43 Home Medications: Ambulatory Orders Albuterol 0.083% Nebulizer Nancy [Ventolin 0.083% Nebulizer Soln -] 1 neb NEB Q6H PRN 03/02/20 Budesonide/Formeterol Fumarate [SYMBICORT 160/4.5mcg -] 2 inh PO BID 03/02/20 Gabapentin [Neurontin] 300 mg PO DAILY 03/02/20 Magnesium Oxide [Magnesium] 400 mg PO TID 03/02/20 Docusate Sodium [Docusate 100 mg] 100 mg PO TID 03/05/20 Sennosides [Senna] 2 tablet PO BID 03/05/20 Aspirin [ASA -] 81 mg PO DAILY #30 tab.chew 03/09/20 Sodium Bicarbonate - 325 mg PO BID #60 tablet 03/09/20 Hydromorphone HCl 2 mg PO DAILY 04/19/20 Pantoprazole Sodium [Protonix -] 40 mg PO DAILY 04/19/20 Sucralfate 1 gm PO Q6H 04/19/20 Sucralfate [Carafate -] 1 gm PO DAILY 04/19/20 Anemia: Yes Asthma: No Cancer: No Cardiac Disorders: No CVA: No COPD: Yes CHF: No Dementia: No Diabetes: No GI Disorders: No Disorders: Yes (Ileal Conduit, H/O KIDNEY STONES) HTN: No Hypercholesterolemia: No Kidney Stones: Yes (kidney failure) Liver Disease: No Seizures: No Thyroid Disease: No - Surgical History Abdominal Surgery: No Appendectomy: No Cardiac Surgery: No Cholecystectomy: No GI Surgery: Yes (COLOSTOMY 2020) Lung Surgery: No Neurologic Surgery: No Orthopedic Surgery: No - Reproductive History Is Patient Now?: No (#): 0 Para: 0 - Immunization History Immunization Up to Date: Yes - Psycho-Social/Smoking History Smoking Status: No Smoking History: Never smoked Have you smoked in the past 12 months: No Number of Cigarettes Smoked Daily: 10 If you are a former smoker, when did you quit?: 1 Month ago Cigars Per Day: 0 'Breaking Loose' booklet given: 02/25/19 - Substance Abuse Hx (Audit-C & DAST Scrn) How often the patient has a drink containing alcohol: Never Score: In Men: 4 or > Positive; In Women: 3 or > Positive: 0 Screen Result (Pos requires Nsg. Audit-10AR): Negative Review of Systems - Review of Systems Able to Perform ROS?: No Constitutional: Yes: See HPI HEENTM: Yes: See HPI Respiratory: Yes: See HPI Cardiac (ROS): Yes: See HPI ABD/GI: Yes: See HPI : Yes: See HPI Musculoskeletal: Yes: See HPI Integumentary: Yes: See HPI Neurological: Yes: See HPI *Physical Exam - Vital Signs Last Vital Signs Temp Pulse Resp BP Pulse Ox 98.2 F 117 H 20 87/57 L 98 07/28/20 16:31 07/28/20 16:31 07/28/20 16:31 07/28/20 16:31 07/28/20 16:31 ED Treatment Course - LABORATORY CBC & Chemistry Diagram: 07/28/20 16:58 07/28/20 16:58 Medical Decision Making - Medical Decision Making 44 YOF h/o JULIO and cerebral edema [facility] for unstable vital signs and elevated creatinine. Per EMS patient was found to lethargic, hypotensive, and tachycardic by [facility] staff this AM. Labs were drawn and she was found to have creatinine of 11. Patient denies CP, SOB, N/V/D, fever or chills. Vitals on arrival were HR 117 and BP 87/57. Physical exam limited by patients altered mental status. Lungs CTAB, patient is tachycardic and tachypneic, normal S1, S2. ddx: Sepsis, pneumonia, UTI, JULIO plan: CBC, CMP, VBG, lactate, blood cultures, UA/ UC, CXR, EKG, 2L NS. reassess: Labs show creatinine of 13.1, potassium of 6.6, CO2 of 11, pH ~7,1. EKG reveals no elevated T waves, but new T wave inversions in leads 1,2,3. Gave calcium gluconate, insulin with dextrose, and albuterol to treat hyperkalemia. Consulted with Dr. Monsalve who recommended giving bolus bicarb + bicarb drip, ICU consult and admission for tele, to wait until patient had received fluids and to reassess CMP. Did not recommend urgent dialysis at this time. Patient was handed off to night team at end of shift. Discharge - Discharge Information Problems reviewed: Yes Clinical Impression/Diagnosis: JULIO (acute kidney injury) - Follow up/Referral - Patient Discharge Instructions - Post Discharge Activity
[2020-07-28] MEDS ORDERED: SODIUM CHLORIDE 1,157 ML IV ONE (17:06)
--- NOTE | 2020-07-28 17:11 | PDOC ---
Documentation entered by Laila Bustos SCRIBE, acting as scribe for Carla Aranda MD. Carla Aranda MD: This documentation has been prepared by the Eric escoto Xhesika, SCRIBE, under my direction and personally reviewed by me in its entirety. I confirm that the documentation accurately reflects all work, treatment, procedures, and medical decision making performed by me. Attending Attestation - Resident Resident Name: Remigio Alejandra - ED Attending Attestation I have performed the following: I have examined & evaluated the patient, The case was reviewed & discussed with the resident, I agree w/resident's findings & plan, Exceptions are as noted - HPI HPI: 07/28/20 17:05 The patient is a 44y/o F, with a PMH of endometriosis (s/p hysterectomy complicated by peritonitis and hemicolectomy/urostomy), atrophic bladder/ESBL, CKD, who presents to the ED BIBA from [facility] for abnormal labs. Pt denies any chest pain, SOB, headache or dizziness. Pt denies any fevers/chills, nausea, vomiting, or diarrhea. Allergies:Meropenem Surgical: hysterectomy, hemicolectomy/urostomy, cholecystectomy PCP: Dr. Guan - Physicial Exam PE: 07/28/20 18:06 thin 44 yo female [place]A from [place] for hypot[place],abnormal labs head ncat cvs tachycardia lungs no rales abdomen rt sided urostomy, left colostomy neuro alert but not answering specific questions 07/28/20 18:38 - Medical Decision Making 07/28/20 17:12 44 yo female with past medical history endometriosis, chronic, normocytic dialysis syndrome, multiple abdominal surgeries including cystectomy with ileal conduit, right-sided urostomy hysterectomy, peritonitis and a she is now status post a left hemicolectomy left colostomy, multiple ESBL UTI infections and recent open cholecystectomy at [facility] with surgeon 07/29/20 02:15 pt found to have JULIO,hyperkalemia case discussed with Dr Montgomery /pt admitted Discharge - Discharge Information Problems reviewed: Yes Clinical Impression/Diagnosis: JULIO (acute kidney injury) - Follow up/Referral - Patient Discharge Instructions - Post Discharge Activity
[2020-07-28 17:30] LABS: BASO % 0.1 % (0-2.0); EOS % 0.5 % (0-4.5); HEMATOCRIT 27.2 % (32.4-45.2); HEMOGLOBIN 9.4 GM/dL (10.7-15.3); LYMPH % 12.8 % (8-40); MCH 31.2 pg (25.7-33.7); MCHC 34.7 g/dl (32.0-36.0); MEAN CELL VOLUME 90.1 fl (80-96); MEAN PLT VOLUME 7.7 fl (7.5-11.1); MONO % 10.9 % (3.8-10.2); NEUT % 75.7 % (42.8-82.8); PLATELET COUNT 475 K/MM3 (134-434); RBC 3.02 M/mm3 (3.60-5.2); RDW 16.8 % (11.6-15.6); WHITE BLOOD COUNT 10.8 K/mm3 (4.0-10.0)
[2020-07-28 17:35] LABS: INR 1.12 (0.83-1.09); PROTHROMBIN TIME (PATIENT) 13.2 SEC (9.7-13.0)
[2020-07-28 17:38] LABS: ACTIVATED PTT 35.5 SECONDS (25.2-36.5)
[2020-07-28 17:54] LABS: ALBUMIN 1.5 g/dl (3.4-5.0); BILIRUBIN,TOTAL 0.5 mg/dL (0.2-1); BLOOD UREA NITROGEN 92.2 mg/dL (7-18); CALCIUM 8.5 mg/dL (8.5-10.1); TOT PROT 7.4 g/dl (6.4-8.2)
[2020-07-28 18:21] LABS: CREATININE 13.1 mg/dL (0.55-1.3); POTASSIUM 6.6 mmol/L (3.5-5.1)
[2020-07-28] MEDS ORDERED: DEXTROSE 50%-WATER - 25 GM/50 ML VIAL IVPUSH ONE ×2 (18:25→18:32)
[2020-07-28] MEDS ORDERED: CALCIUM GLUCONATE 10% - 1,000 MG/10 ML VIAL IVPUSH ONE (18:25)
[2020-07-28] MEDS ORDERED: INSULIN REGULAR HUMAN 100 UNITS/ML *VIAL IVPUSH ONE (18:25)
[2020-07-28 18:28] LABS: VENOUS BASE EXCESS -16.1 mmol/L (-2-2); VENOUS O2 SATURATION 32.8 % (70-80); VENOUS PCO2 36.8 mmHg (38-52)
[2020-07-28] MEDS ORDERED: ALBUTEROL SO4 HFA INHALER IH ONE ×2 (18:29→21:11)
[2020-07-28 18:34] LABS: VENOUS PH 7.134 (7.310-7.410)
[2020-07-28] MEDS ORDERED: DEXTROSE 50%-WATER 25 GM/50 ML DISP.SYRIN ONE (18:38)
[2020-07-28] MEDS ORDERED: CALCIUM GLUCONATE 10% - 1,000 MG/10 ML VIAL ONE (18:38)
[2020-07-28] MEDS ORDERED: INSULIN REGULAR HUMAN 100 UNITS/ML *VIAL ONE (18:38)
[2020-07-28] MEDS ORDERED: SODIUM BICARBONATE 8.4% 50 MEQ/50 ML DISP.SYRIN IVPUSH ONE (18:49)
[2020-07-28] MEDS ORDERED: SODIUM CHLORIDE 0.45% 1,000 ML with SODIUM BICARBONATE 8.4% - 75 MEQ IV SCH (19:00)
--- NOTE | 2020-07-28 19:37 | PDOC ---
*Physical Exam - Vital Signs Last Vital Signs Temp Pulse Resp BP Pulse Ox 98.2 F 117 H 20 87/57 L 98 07/28/20 16:31 07/28/20 16:31 07/28/20 16:31 07/28/20 16:31 07/28/20 16:31 ED Treatment Course - LABORATORY CBC & Chemistry Diagram: 07/28/20 16:58 07/29/20 01:20 - ADDITIONAL ORDERS Additional order review: Laboratory Results 07/28/20 07/28/20 07/28/20 16:58 16:58 16:58 PT with INR INR PTT (Actin FS) VBG pH 7.134 L* POC VBG pCO2 36.8 L POC VBG pO2 25.8 L VBG HCO3 12.1 L VBG O2 Sat (Fadi) 32.8 L VBG Base Excess -16.1 L Sodium Potassium Chloride Carbon Dioxide Anion Gap BUN Creatinine Est GFR (CKD-EPI)AfAm Est GFR (CKD-EPI)NonAf Random Glucose Lactic Acid 1.0 Calcium Total Bilirubin AST ALT Alkaline Phosphatase Troponin I < 0.02 Total Protein Albumin 07/28/20 07/28/20 16:58 16:58 PT with INR 13.20 H INR 1.12 H PTT (Actin FS) 35.5 VBG pH POC VBG pCO2 POC VBG pO2 VBG HCO3 VBG O2 Sat (Fadi) VBG Base Excess Sodium 136 Potassium 6.6 H* Chloride 107 Carbon Dioxide 13 L Anion Gap 16 BUN 92.2 H Creatinine 13.1 H* Est GFR (CKD-EPI)AfAm 3.51 Est GFR (CKD-EPI)NonAf 3.03 Random Glucose 86 Lactic Acid Calcium 8.5 Total Bilirubin 0.5 AST 74 H ALT 23 Alkaline Phosphatase 210 H Troponin I Total Protein 7.4 Albumin 1.5 L 07/28/20 16:58 RBC 3.02 L MCV 90.1 MCHC 34.7 RDW 16.8 H MPV 7.7 Neutrophils % 75.7 Lymphocytes % 12.8 Monocytes % 10.9 H Eosinophils % 0.5 D Basophils % 0.1 - Medications Given in the ED: ED Medications Discontinued Medications Generic Name Dose Route Start Last Admin Trade Name Freq PRN Reason Stop Dose Admin Calcium Gluconate 1,000 mg 07/28/20 18:25 07/28/20 19:25 Calcium Gluconate 10% - IVPUSH 07/28/20 18:26 1,000 mg ONCE ONE Administration Dextrose 25 gm 07/28/20 18:25 07/28/20 19:25 D50w (Vial) - IVPUSH 07/28/20 18:26 25 gm NOW ONE Administration Dextrose 25 gm 07/28/20 18:32 07/28/20 19:25 D50w (Vial) - IVPUSH 07/28/20 18:33 25 gm NOW ONE Administration Insulin Human Regular 10 units 07/28/20 18:25 07/28/20 19:25 Novolin R Vial *For Ivpush Or Iv Drip Only* IVPUSH 07/28/20 18:26 10 units ONCE ONE Administration Sodium Chloride 1,000 ml 07/28/20 17:00 07/28/20 17:45 Normal Saline - IV 07/28/20 17:01 1,000 ml ONCE ONE Administration Medical Decision Making - Medical Decision Making 07/28/20 19:31 Abd surgery, urostomy, colostomy, multiple AKIs, cerebral edema s/p emergent dialysis Here for lethargy, hypotensive, tachy, abnormal labs - Cr 11 at [facility] on board - Cr 13, K 6.6 (hemolyzed - treated Ca Glu, Alb, Insulin 10 with 2xD50, Bicarb 1 amp + drip 1/5NS with 1.5 amps at 100cc/hr, 2L NS), 7.13 pH. No need for urgent HD - too dry. Needs ICU consult Admit Tele 07/28/20 21:58 Left EJ placed, IVF running ICU consulted, accept patient to ICU CT Abd ordered, plan for CT before transfer up to ICU Dispo: Admit ICU Discharge - Discharge Information Problems reviewed: Yes Clinical Impression/Diagnosis: JULIO (acute kidney injury), Weakness Renal failure Qualifiers: Renal failure chronicity: acute on chronic Acute renal failure type: unspecified Chronic kidney disease stage: unspecified stage Qualified Code(s): N17.9 - Acute kidney failure, unspecified; N18.9 - Chronic kidney disease, unspecified Sepsis Qualifiers: Sepsis type: sepsis due to unspecified organism Sepsis acute organ dysfunction status: with acute organ dysfunction Severe sepsis acute organ dysfunction type: unspecified Severe sepsis shock status: with septic shock Qualified Code(s): A41.9 - Sepsis, unspecified organism; R65.21 - Severe sepsis with septic shock Condition: Guarded - Follow up/Referral - Patient Discharge Instructions - Post Discharge Activity
--- NOTE | 2020-07-28 20:20 | HP ---
CHIEF COMPLAINT:presents from skilled nursing with lethargy and hypotension PCP:Dr. Patten HISTORY OF PRESENT ILLNESS: 44 year old female with a past medical history of endometriosis (s/p hysterectomy complicated by peritonitis and hemicolectomy/urostomy), atrophic bladder/ESBL, amd multiple JULIO's, cerebral edema s/p emergent dialysis who presents to the ED BIBA from [facility] for abnormal lab findings, lethargy, tachycardia and hypotension. ER course notable for: Tachycardia Hypotension Acute Renal Failure/Severe Hyperkalemia (BUN 92.2/creatinine 13.1, potassium 6.6) Metabolic Acidosis -treated Ca Glu, Alb, Insulin 10 with 2xD50, Bicarb 1 amp + drip 1/5NS with 1.5 amps at 100cc/hr, 2L NS -As per Nephrology- Dr. Montgomery no need for urgent hemodioalysis as patient is too dry and continued on IVF and pending repeat BMP. -WBC 10.8, lactic acid normal Recent Travel: no PAST MEDICAL HISTORY: endometriosis PAST SURGICAL HISTORY: hysterectomy hemicolectomy/urostomy cholecystectomy Social History: Smoking:no Alcohol:no Drugs: no Allergies meropenem Adverse Reaction (Intermediate, Verified 05/06/20 11:43) HOME MEDICATIONS: Home Medications Medication Instructions Recorded Albuterol 0.083% Nebulizer Nancy 1 neb NEB Q6H PRN 03/02/20 [Ventolin 0.083% Nebulizer Soln -] Budesonide/Formeterol Fumarate 2 inh PO BID 03/02/20 [SYMBICORT 160/4.5mcg -] Gabapentin [Neurontin] 300 mg PO DAILY 03/02/20 Magnesium Oxide [Magnesium] 400 mg PO TID 03/02/20 Docusate Sodium [Docusate 100 mg] 100 mg PO TID 03/05/20 Sennosides [Senna] 2 tablet PO BID 03/05/20 Aspirin [ASA -] 81 mg PO DAILY #30 tab.chew 03/09/20 Sodium Bicarbonate - 325 mg PO BID #60 tablet 03/09/20 Hydromorphone HCl 2 mg PO DAILY 04/19/20 Pantoprazole Sodium [Protonix -] 40 mg PO DAILY 04/19/20 Sucralfate 1 gm PO Q6H 04/19/20 Sucralfate [Carafate -] 1 gm PO DAILY 04/19/20 REVIEW OF SYSTEMS unable to obtain accurate ROS due to patient mental status CONSTITUTIONAL: Absent: fever, chills, diaphoresis, generalized weakness, malaise, loss of appetite, weight change HEENT: Absent: rhinorrhea, nasal congestion, throat pain, throat swelling, difficulty swallowing, mouth swelling, ear pain, eye pain, visual changes CARDIOVASCULAR: Absent: chest pain, syncope, palpitations, irregular heart rate, lightheadedness, peripheral edema RESPIRATORY: Absent: cough, shortness of breath, dyspnea with exertion, orthopnea, wheezing, stridor, hemoptysis GASTROINTESTINAL: Absent: abdominal pain, abdominal distension, nausea, vomiting, diarrhea, constipation, melena, hematochezia GENITOURINARY: Absent: dysuria, frequency, urgency, hesitancy, hematuria, flank pain, genital pain MUSCULOSKELETAL: Absent: myalgia, arthralgia, joint swelling, back pain, neck pain SKIN: Absent: rash, itching, pallor HEMATOLOGIC/IMMUNOLOGIC: Absent: easy bleeding, easy bruising, lymphadenopathy, frequent infections ENDOCRINE: Absent: unexplained weight gain, unexplained weight loss, heat intolerance, cold intolerance NEUROLOGIC: Absent: headache, focal weakness or paresthesias, dizziness, unsteady gait, s eizure, mental status changes, bladder or bowel incontinence PSYCHIATRIC: Absent: anxiety, depression, suicidal or homicidal ideation, hallucinations. PHYSICAL EXAMINATION Vital Signs - 24 hr 07/28/20 16:31 Temperature 98.2 F Pulse Rate 117 H Respiratory 20 Rate Blood Pressure 87/57 L O2 Sat by Pulse 98 Oximetry (%) General patient in no acute respiratory distress lethargic Vital signs reviewed heart and blood pressure noted Neck no JVD Neuro eyes are open minimally responsive and lethargic Heart s1s2 rate tachycardic Abdomen soft nontender nondisteded Extremities warm to touch no pitting edema no cyanosis Skin dry nail beds and lips pink Mood calm Laboratory Results - last 24 hr 07/28/20 07/28/20 07/28/20 16:58 16:58 16:58 WBC 10.8 H RBC 3.02 L Hgb 9.4 L Hct 27.2 L MCV 90.1 MCH 31.2 MCHC 34.7 RDW 16.8 H Plt Count 475 H D MPV 7.7 Absolute Neuts (auto) 8.2 H Neutrophils % 75.7 Lymphocytes % 12.8 Monocytes % 10.9 H Eosinophils % 0.5 D Basophils % 0.1 Nucleated RBC % 1 H PT with INR 13.20 H INR 1.12 H PTT (Actin FS) 35.5 VBG pH POC VBG pCO2 POC VBG pO2 VBG HCO3 VBG O2 Sat (Fadi) VBG Base Excess Sodium 136 Potassium 6.6 H* Chloride 107 Carbon Dioxide 13 L Anion Gap 16 BUN 92.2 H Creatinine 13.1 H* Est GFR (CKD-EPI)AfAm 3.51 Est GFR (CKD-EPI)NonAf 3.03 Random Glucose 86 Lactic Acid Calcium 8.5 Total Bilirubin 0.5 AST 74 H ALT 23 Alkaline Phosphatase 210 H Troponin I Total Protein 7.4 Albumin 1.5 L 07/28/20 07/28/20 07/28/20 16:58 16:58 16:58 WBC RBC Hgb Hct MCV MCH MCHC RDW Plt Count MPV Absolute Neuts (auto) Neutrophils % Lymphocytes % Monocytes % Eosinophils % Basophils % Nucleated RBC % PT with INR INR PTT (Actin FS) VBG pH 7.134 L* POC VBG pCO2 36.8 L POC VBG pO2 25.8 L VBG HCO3 12.1 L VBG O2 Sat (Fadi) 32.8 L VBG Base Excess -16.1 L Sodium Potassium Chloride Carbon Dioxide Anion Gap BUN Creatinine Est GFR (CKD-EPI)AfAm Est GFR (CKD-EPI)NonAf Random Glucose Lactic Acid 1.0 Calcium Total Bilirubin AST ALT Alkaline Phosphatase Troponin I < 0.02 Total Protein Albumin ASSESSMENT/PLAN: 44 year old female with a past medical history of endometriosis (s/p hysterectomy complicated by peritonitis and hemicolectomy/urostomy), atrophic bladder/ESBL, amd CKD, who presents to the ED BIBA from [facility] for abnormal lab findings, lethargy, tachycardia and and hypotension. 1. Acute Renal Failure 2. Severe Hyperkalmeia 3. Metabolic Acidosis 4. Hypotension 5. Tachycardia 6. Lethargy -treated Ca Glu, Alb, Insulin 10 with 2xD50, Bicarb 1 amp + drip 1/5NS with 1.5 amps at 100cc/hr, 2L NS -As per Nephrology- Dr. Montgomery - no need for urgent HD as patient is too dry and is continued on IVF -pending repeat BMP Critical Care evaluated and patient is going to ICU for critical care monitoring. Further management as per Critical Care Team and Nephrology. Family Medical History Family History: Unable to Obtain Visit type - Emergency Visit Emergency Visit: Yes ED Registration Date: 07/28/20 Care time: The patient presented to the Emergency Department on the above date and was hospitalized for further evaluation of their emergent condition. - New Patient This patient is new to me today: Yes Date on this admission: 07/28/20 - Critical Care Critical Care patient: Yes Total Critical Care Time (in minutes): 25
[2020-07-28] MEDS ORDERED: SODIUM BICARBONATE 8.4% - 50 ML ONE (21:13)
[2020-07-28] MEDS ORDERED: CHLORHEXIDINE GLUCONATE 4% CLEANSER FOR DECOLONIZATION TP SCH (22:00)
--- NOTE | 2020-07-28 22:25 | CONSULT ---
Consultation: REQUESTING PROVIDER: CONSULT REQUEST: We have been asked to medically evaluate this patient for hypotension. HISTORY OF PRESENT ILLNESS: This is a 44 y.o. 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 Manriquez (d/c'd 05/01/2020) who presented with lethargy altered mental status and hypotensive (90/45) with BUN/Cr 80/12 at [facility]. History obtained from family and nurse at longterm who states pt was AO x 3 2 days ago. No acute complaints at the time of her last normal mental status. Pt admitted to having abdominal pain at that time which is chronic for her. REVIEW OF SYSTEMS: unable to obtain from patient. PHYSICAL EXAMINATION Vital Signs - 24 hr 07/28/20 16:31 Temperature 98.2 F Pulse Rate 117 H Respiratory 20 Rate Blood Pressure 87/57 L O2 Sat by Pulse 98 Oximetry (%) General/HEENT/Neuro -Atraumatic, Normocephalic, pupils reactive b/l, dry mucous membranes, responds to name but not following commands. AO X0. Responsive to noxious stimuli. Heart - tachycardic, normal S1, S2, RRR Lungs - clear to auscultation, reduced air entry at bases Abdomen - midline surgical scar; LLQ Colostomy bag draining black liquid stool, RLQ ileal conduit draining yellow urine, excoriations throughout upper and lower extremities. Extremities - no edema, no calf tenderness. Excoriated lesions, no superimposed cellulitis. Tattoes extensively on her extremities. Laboratory Results - last 24 hr 07/28/20 07/28/20 07/28/20 16:58 16:58 16:58 WBC 10.8 H RBC 3.02 L Hgb 9.4 L Hct 27.2 L MCV 90.1 MCH 31.2 MCHC 34.7 RDW 16.8 H Plt Count 475 H D MPV 7.7 Absolute Neuts (auto) 8.2 H Neutrophils % 75.7 Lymphocytes % 12.8 Monocytes % 10.9 H Eosinophils % 0.5 D Basophils % 0.1 Nucleated RBC % 1 H PT with INR 13.20 H INR 1.12 H PTT (Actin FS) 35.5 VBG pH POC VBG pCO2 POC VBG pO2 VBG HCO3 VBG O2 Sat (Fadi) VBG Base Excess Sodium 136 Potassium 6.6 H* Chloride 107 Carbon Dioxide 13 L Anion Gap 16 BUN 92.2 H Creatinine 13.1 H* Est GFR (CKD-EPI)AfAm 3.51 Est GFR (CKD-EPI)NonAf 3.03 Random Glucose 86 Lactic Acid Calcium 8.5 Total Bilirubin 0.5 AST 74 H ALT 23 Alkaline Phosphatase 210 H Troponin I Total Protein 7.4 Albumin 1.5 L 07/28/20 07/28/20 07/28/20 16:58 16:58 16:58 WBC RBC Hgb Hct MCV MCH MCHC RDW Plt Count MPV Absolute Neuts (auto) Neutrophils % Lymphocytes % Monocytes % Eosinophils % Basophils % Nucleated RBC % PT with INR INR PTT (Actin FS) VBG pH 7.134 L* POC VBG pCO2 36.8 L POC VBG pO2 25.8 L VBG HCO3 12.1 L VBG O2 Sat (Fadi) 32.8 L VBG Base Excess -16.1 L Sodium Potassium Chloride Carbon Dioxide Anion Gap BUN Creatinine Est GFR (CKD-EPI)AfAm Est GFR (CKD-EPI)NonAf Random Glucose Lactic Acid 1.0 Calcium Total Bilirubin AST ALT Alkaline Phosphatase Troponin I < 0.02 Total Protein Albumin Active Medications Generic Name Dose Route Start Last Admin Trade Name Freq PRN Reason Stop Dose Admin Chlorhexidine Gluconate 1 applic 07/28/20 22:00 Hibiclens For Decolonization - TP HS PATRICK Sodium Bicarbonate 75 meq/ 1,075 mls @ 125 mls/hr 07/28/20 20:19 Sodium Chloride IV Q8H PATRICK Mupirocin 1 applic 07/28/20 22:00 Bactroban Ointment (For Decolonization) - NS 08/02/20 21:59 BID PATRICK Sodium Zirconium Cyclosilicate 10 gm 07/28/20 19:00 Lokelma PO DAILY PATRICK ASSESSMENT/PLAN: This is a 44 y.o. 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 Manriquez (d/c'd 05/01/2020) who presented with lethargy altered mental status and hypotensive (90/45) with BUN/Cr 80/12 at [facility]. #Neuro - pt AO X 0 - likely due to acute toxic metabolic encephalopathy 2/2 uremia - will obtain head CT - neuro checks q4h - fall risk precautions - aspiration precautions - seizure precautions - speech swallow consult - rpt cmp in AM and f/u BUN level and assess need for dialysis as per Dr. Montgomery's recommendations - must obtain UA to r/o infectious source of altered mental status #Renal - in acute kidney injury at this time 2/2 profound dehydration - baseline Cr has been quite variable from 1.7->16 in past - hold all nephrotoxic agents - pt with acute metabolic acidosis placed on bicarb drip - 1/2 NS with Na Bicarb as per renals recommendations @125/hr - will rpt bmp stat to assess hyperkalemia (6.6) after being treated. Initial blood test showed hemolysis - no acute indication for dialysis at this time - renal sono ordered to r/o hydronephrosis - UA ordered from ileal conduit bag #Heme - microcytic anemia likely 2/2 anemia of chronic disease from CKD - pt found to have melena in her colostomy bag - will keep pt on SCD's for now for ppx - GI consult as per day teams recommendations #Cardio - EKG ordered - sinus tachycardic 2/2 profound dehydration #Pulmonary - no acute pulmonary issues at this time - cxr negative - keep SaO2 >90% as pt has COPD hx but not documented as being on home o2 #ID - no sign of acute infectious pathology at this time - afebrile, slight leukocytosis likely reactive - rpt cbc in AM Dispo: We will continue to follow the patient. Thank you for this consultative opportunity. Visit type - Emergency Visit Emergency Visit: Yes ED Registration Date: 07/28/20 Care time: The patient presented to the Emergency Department on the above date and was hospitalized for further evaluation of their emergent condition. - New Patient This patient is new to me today: Yes Date on this admission: 07/30/20 - Critical Care Critical Care patient: Yes Total Critical Care Time (in minutes): 35 Critical Care Statement: The care of this patient involved high complexity decision making to prevent further life threatening deterioration of the patient's condition and/or to evaluate & treat vital organ system(s) failure or risk of failure. ATTENDING PHYSICIAN STATEMENT I saw and evaluated the patient. I reviewed the resident's note and discussed the case with the resident. I agree with the resident's findings and plan as documented. SUBJECTIVE: OBJECTIVE: ASSESSMENT AND PLAN:
[2020-07-28] MEDS: SODIUM ZIRCONIUM CYCLOSILICATE (LOKELMA) 10 GM PACKET PO SCH (23:38)
[2020-07-28] MEDS: SODIUM BICARBONATE 8.4% - 75 MEQ in SODIUM CHLORIDE 0.45% 1,000 ML IV SCH (23:38)
[2020-07-29] MEDS ORDERED: INSULIN REGULAR HUMAN 100 UNITS/ML *VIAL IVPUSH ONE (00:46)
[2020-07-29] MEDS ORDERED: INSULIN REGULAR HUMAN 100 UNITS/ML *VIAL* (FOR IVP) IVPUSH ONE (00:48)
[2020-07-29] MEDS ORDERED: INSULIN REGULAR HUMAN 100 UNITS/ML *VIAL IVPUSH SCH (01:00)
[2020-07-29] MEDS ORDERED: INSULIN REGULAR 100 UNITS in SODIUM CHLORIDE 99 ML IVPB SCH (01:00)
[2020-07-29 01:51] LABS: ALBUMIN 1.3 g/dl (3.4-5.0); BILIRUBIN,TOTAL 0.4 mg/dL (0.2-1); BLOOD UREA NITROGEN 90.7 mg/dL (7-18); POTASSIUM 3.4 mmol/L (3.5-5.1); TOT PROT 5.7 g/dl (6.4-8.2)
[2020-07-29 02:10] LABS: LIPASE 264 U/L (73-393); MAGNESIUM 1.9 mg/dL (1.8-2.4)
[2020-07-29 02:19] LABS: CREATININE 11.8 mg/dL (0.55-1.3)
[2020-07-29] MEDS ORDERED: MAGNESIUM 1GM/D5W 100ML - 100 ML IVPB IVPB ONE ×2 (02:23→03:31)
[2020-07-29 02:41] LABS: PHOSPHOROUS 9.5 mg/dL (2.5-4.9)
[2020-07-29] MEDS ORDERED: SEVELAMER CARBONATE 0.8 GM POWDER PACKET PO ONE ×2 (02:45→03:31)
[2020-07-29 03:04] LABS: MAGNESIUM 1.8 mg/dL (1.8-2.4); PHOSPHOROUS 8.3 mg/dL (2.5-4.9)
[2020-07-29] MEDS: MUPIROCIN 2% TOPICAL OINTMENT FOR DECOLONIZATION NS SCH ×2 (03:17→11:30)
[2020-07-29] MEDS: SODIUM BICARBONATE 8.4% - 75 MEQ in SODIUM CHLORIDE 0.45% 1,000 ML IV SCH ×4 (04:01→19:46)
--- NOTE | 2020-07-29 09:08 | CONSULT ---
Admitting History and Physical - Admission History of Present Illness: 44 year old female with a past medical history of endometriosis (s/p hysterectomy complicated by peritonitis and hemicolectomy/urostomy), atrophic bladder/ESBL, amd CKD, who presents to the ED BIBA from [facility] for abnormal lab findings, lethargy, tachycardia and and hypotension. 1. Acute Renal Failure 2. Severe Hyperkalmeia 3. Metabolic Acidosis 4. Hypotension 5. Tachycardia 6. Lethargy Pt has PEG, but was fed orally, reg diet/thin liquids at [facility]. CT head (-) Selected Entries 07/29/20 07/29/20 07/29/20 01:00 02:51 03:00 Check all that Tube Feeding apply Eating (Feeding Total ) Ability Assistance Temperature 98.5 F 97.9 F 97.9 F Pulse Rate 88 88 Pulse Rate [ 88 Right Radial] Blood Pressure 85/57 L 85/57 L Blood Pressure 84/61 L [Left Arm] O2 Sat by Pulse 100 100 100 Oximetry (%) Oxygen Delivery Room Air Room Air Method 07/29/20 07/29/20 07/29/20 05:00 06:00 08:32 Check all that apply Eating (Feeding ) Ability Temperature Pulse Rate 80 76 Pulse Rate [ Right Radial] Blood Pressure 88/60 L 92/64 Blood Pressure [Left Arm] O2 Sat by Pulse 100 100 100 Oximetry (%) Oxygen Delivery Room Air Method Laboratory Tests 07/28/20 07/28/20 16:58 18:42 WBC 10.8 H COVID-19 (MARY) Pending cxr (-) NPO History Source: Patient, Medical Record Limitations to Obtaining History: Clinical Condition - Past Medical History BARK GRINDER: Yes: Other (Cerebral Edema) Pulmonary: Yes: COPD Gastrointestinal: Yes: Hiatal Hernia, Other (umbilical incisional hernia) Hepatobiliary: Yes: Cholelithiasis Renal/: Yes: Renal Inusuff (s/p urinary diversion, bilateral nephrostomies converted to ileal conduit ~2006 [facility]), Renal Calculi, UTI, Other (ileal conduit) ...LMP: 06/02/20 ...: No Heme/Onc: Yes: Anemia Infectious Disease: Yes: MRSA, Other (ESBL) Psych: Yes: Anxiety, Depression Endocrine: Yes: Other (prior abnormal TFTs) Dermatology: Yes: Other (hidradenitis) - Past Surgical History Past Surgical History: Yes: Cholecystectomy, Colostomy, Cystectomy, Ileal Conduit - Smoking History Smoking history: Never smoked Have you smoked in the past 12 months: No Aproximately how many cigarettes per day: 10 If you are a former smoker, when did you quit?: 1 Month ago - Alcohol/Substance Use Hx Alcohol Use: No History of Substance Use: reports: Marijuana (daily) Date of Last Use: 05/09/18 - Social History ADL: Independent History of Recent Travel: No History - Admission Reason For Visit: ACUTE KIDNEY INJURY RENAL INSUFFICIENCY SEPSIS - Diagnostics X-ray: Report Reviewed ((-)) CT Scan: Report Reviewed - General Mental Status: Alert and Oriented, Awake and Alert, Able to Follow Commands, Vague (delayed response, distractible), Flat Affect Attention: Mild Impairment, Moderate Impairment Ability to Follow Directions: Good Head/Neck Control: Good - Hearing Hearing: Functional Speech Evaluation - Communication Primary Language: B[place] Communication: Yes: Simple Responses - Speech Production Able to Make Needs Known: Yes: WNL Intelligibility: Yes: WNL - Speech Characteristics Voice Loudness: Mildly Soft/Quiet Voice Pitch: Yes: Normal Voice Phonatory-based Quality: Yes: Normal Speech Pattern: Normal Speech Clarity: < 100% Nasal Resonance: Normal Articulation: Yes: Precise - Language/Auditory Comprehension Follows: Yes: 1 Stage Simple Commands Observation: Able to respond to yes/no queries: Yes (delayed response), Yes/No Confusion: No, Comprehends Conversational Speech: Yes (delayed response), Benefits from Repetiton: Yes - Language/Verbal Expression Functional Communication Status: Yes: Mildly Impaired - Swallow Evaluation/Bedside Assessment Current Nutritional Intake: NPO Oral Secretions: Yes: Dryness Dentition: Yes: Adequate Facial Symmetry at Rest: Symmetrical Facial Symmetry on Retraction: Symmetrical Against Resistance Opening: Weak Against Resistance Closing: Weak Pucker Lips: Normal, Weak Smile: Normal, Weak Lingual Movement: Symmetric, Reduced Protrusion Lingual Speed of Movement: Normal Lingual Movement Strgth Against Opposition: Reduced Lingual Movement Characteristics: Normal Laryngeal Movement: Able to Palpate Rate of Intake: WFL Bolus Size: WFL Chewing: Impaired (oral dryness, slow mastication, reduced efficiency) Oral Prep Time: Increased A-P Transit: WFL Timing of Swallow: Delayed Coughing/Throat Clear: No Change in Voice: No Recommendations - Speech Evaluation, Impression/Plan Impression: Delayed verbal response with distractibility. oral dryness, slow mastication, reduced efficiency - Disposition Discharge to: [facility] Facility - Dysphagia Impressions/Plan Swallowing Skills: Impaired Dysphagia Impressions: Mild Impairment, Ongoing Evaluation *Silent aspiration: cannot be R/O at bedside Dysphagia Treatment Plan: Small Bites, Chin Tuck/Down, Clear Pocket Food, Facilitative Feeding, Safe Rate, 1/2 tsp. at a time, Elevate HOB during feed - Recommendations Diet Consistency: Regular (soft, moist, extra gravy) Medication Administration: Crushed with applesauce Liquids: Thin Liquids Supplement: Ensure, Magic Cup, Ensure Pudding
--- NOTE | 2020-07-29 09:35 | CONSULT ---
Consultation: REQUESTING PROVIDER: Dr. Castillo (ICU) CONSULT REQUEST: We have been asked to medically evaluate this patient for JULIO on CKD. 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 who presented with lethargy, altered mental status, hypotension and elevated Cr of 12 at [facility]. Pt currently denies abdominal pain or shortness of breath. REVIEW OF SYSTEMS: see HPI PHYSICAL EXAMINATION Vital Signs - 24 hr 07/28/20 07/28/20 07/28/20 16:31 19:00 20:00 Temperature 98.2 F Pulse Rate 117 H Pulse Rate [ 99 H 100 H Right Radial] Respiratory 20 15 15 Rate Blood Pressure 87/57 L Blood Pressure 92/63 95/60 [Left Arm] O2 Sat by Pulse 98 100 100 Oximetry (%) 07/28/20 07/28/20 07/29/20 21:22 22:59 01:00 Temperature 98.5 F Pulse Rate Pulse Rate [ 97 H 84 88 Right Radial] Respiratory 16 11 17 Rate Blood Pressure Blood Pressure 82/58 L 85/58 L 84/61 L [Left Arm] O2 Sat by Pulse 100 100 100 Oximetry (%) 07/29/20 07/29/20 07/29/20 02:51 03:00 05:00 Temperature 97.9 F 97.9 F Pulse Rate 88 88 80 Pulse Rate [ Right Radial] Respiratory 10 10 9 L Rate Blood Pressure 85/57 L 85/57 L 88/60 L Blood Pressure [Left Arm] O2 Sat by Pulse 100 100 100 Oximetry (%) 07/29/20 07/29/20 06:00 08:32 Temperature Pulse Rate 76 Pulse Rate [ Right Radial] Respiratory 13 Rate Blood Pressure 92/64 Blood Pressure [Left Arm] O2 Sat by Pulse 100 100 Oximetry (%) GENERAL: Awake and alert, in no acute distress. HEAD: Normal with no signs of trauma. EYES: PERRLA, EOMI. EARS, NOSE, THROAT: Ears normal, nares patent, moist mucous membranes. NECK: Normal range of motion, peripheral IV access left EJ. LUNGS: CTAB, no wheezes. HEART: RRR, no murmur. ABDOMEN: Soft, nontender, not distended, normoactive bowel sounds, right lower ilioconduit draining light yellow urine, left lower colostomy bag with light brown stool, left mid PEG with small amount of drainage around site. Vertical healed surgical scar. MUSCULOSKELETAL: Not examined. UPPER EXTREMITIES: Warm, well-perfused. No peripheral edema. Wrist restraints. LOWER EXTREMITIES: Warm, well-perfused. No peripheral edema. SKIN: Warm, dry, normal turgor. Laboratory Results - last 24 hr 07/28/20 07/28/20 07/28/20 16:58 16:58 16:58 WBC 10.8 H RBC 3.02 L Hgb 9.4 L Hct 27.2 L MCV 90.1 MCH 31.2 MCHC 34.7 RDW 16.8 H Plt Count 475 H D MPV 7.7 Absolute Neuts (auto) 8.2 H Neutrophils % 75.7 Lymphocytes % 12.8 Monocytes % 10.9 H Eosinophils % 0.5 D Basophils % 0.1 Nucleated RBC % 1 H PT with INR 13.20 H INR 1.12 H PTT (Actin FS) 35.5 VBG pH POC VBG pCO2 POC VBG pO2 VBG HCO3 VBG O2 Sat (Fadi) VBG Base Excess Sodium 136 Potassium 6.6 H* Chloride 107 Carbon Dioxide 13 L Anion Gap 16 BUN 92.2 H Creatinine 13.1 H* Est GFR (CKD-EPI)AfAm 3.51 Est GFR (CKD-EPI)NonAf 3.03 Random Glucose 86 Lactic Acid Calcium 8.5 Phosphorus Cancelled Magnesium Cancelled Total Bilirubin 0.5 AST 74 H ALT 23 Alkaline Phosphatase 210 H Troponin I Total Protein 7.4 Albumin 1.5 L Lipase Cancelled TSH Cancelled 07/28/20 07/28/20 07/28/20 16:58 16:58 16:58 WBC RBC Hgb Hct MCV MCH MCHC RDW Plt Count MPV Absolute Neuts (auto) Neutrophils % Lymphocytes % Monocytes % Eosinophils % Basophils % Nucleated RBC % PT with INR INR PTT (Actin FS) VBG pH 7.134 L* POC VBG pCO2 36.8 L POC VBG pO2 25.8 L VBG HCO3 12.1 L VBG O2 Sat (Fadi) 32.8 L VBG Base Excess -16.1 L Sodium Potassium Chloride Carbon Dioxide Anion Gap BUN Creatinine Est GFR (CKD-EPI)AfAm Est GFR (CKD-EPI)NonAf Random Glucose Lactic Acid 1.0 Calcium Phosphorus 9.5 H* Magnesium 1.9 Total Bilirubin AST ALT Alkaline Phosphatase Troponin I < 0.02 Total Protein Albumin Lipase 264 TSH 2.45 07/29/20 01:20 WBC RBC Hgb Hct MCV MCH MCHC RDW Plt Count MPV Absolute Neuts (auto) Neutrophils % Lymphocytes % Monocytes % Eosinophils % Basophils % Nucleated RBC % PT with INR INR PTT (Actin FS) VBG pH POC VBG pCO2 POC VBG pO2 VBG HCO3 VBG O2 Sat (Fadi) VBG Base Excess Sodium 143 Potassium 3.4 L Chloride 111 H Carbon Dioxide 13 L Anion Gap 18 H BUN 90.7 H Creatinine 11.8 H* Est GFR (CKD-EPI)AfAm 3.99 Est GFR (CKD-EPI)NonAf 3.44 Random Glucose 80 Lactic Acid Calcium 8.0 L Phosphorus 8.3 H Magnesium 1.8 Total Bilirubin 0.4 AST 16 ALT 12 L Alkaline Phosphatase 173 H Troponin I Total Protein 5.7 L Albumin 1.3 L Lipase TSH Active Medications Generic Name Dose Route Start Last Admin Trade Name Freq PRN Reason Stop Dose Admin Chlorhexidine Gluconate 1 applic 07/28/20 22:00 07/29/20 03:17 Hibiclens For Decolonization - TP Not Given HS PATRICK Sodium Bicarbonate 75 meq/ 1,075 mls @ 125 mls/hr 07/28/20 20:19 07/29/20 04:01 Sodium Chloride IV Not Given Q8H PATRICK Mupirocin 1 applic 07/28/20 22:00 07/29/20 03:17 Bactroban Ointment (For Decolonization) - NS 08/02/20 21:59 Not Given BID PATRICK Sodium Zirconium Cyclosilicate 10 gm 07/28/20 19:00 07/28/20 23:38 Lokelma PO 10 gm DAILY PATRICK Administration ASSESSMENT/PLAN: Pt is a 44y/o female with extensive medical hx including CKD3, frequent UTIs (ESBL), complications from hysterectomy (ilioconduit and colostomy, s/p open aminah in April) who presents from [facility] with lethargy and Cr 12. #JULIO on CKD3 #high AG and normal AG metabolic acidosis #hypokalemia #hyperphosphatemia #urosepsis -JULIO could be from hypotension, pt also has slight leukocytosis with positive UA which could point to sepsis -AG 19, corrected for albumin 25.8; delta ratio 0.6 suggests combo high AG and normal AG acidosis -continue sodium bicarbonate IV @125mL/hr -pt was border hypokalemic overnight 3.4, still waiting for new labs, initial labs likely hemolyzed so was not hyperkalemic -consider holding daily Lokelma if hypokalemic, replete as needed -pt started on vancomycin and Zosyn for UTI/sepsis Dispo: We will continue to follow the patient. Thank you for this consultative opportunity. Visit type - Emergency Visit Emergency Visit: Yes ED Registration Date: 07/28/20 Care time: The patient presented to the Emergency Department on the above date and was hospitalized for further evaluation of their emergent condition. - New Patient This patient is new to me today: Yes Date on this admission: 07/29/20 - Critical Care Critical Care patient: Yes Total Critical Care Time (in minutes): 36 Critical Care Statement: The care of this patient involved high complexity decision making to prevent further life threatening deterioration of the patient's condition and/or to evaluate & treat vital organ system(s) failure or risk of failure. ATTENDING PHYSICIAN STATEMENT I saw and evaluated the patient. I reviewed the resident's note and discussed the case with the resident. I agree with the resident's findings and plan as documented. SUBJECTIVE: OBJECTIVE: ASSESSMENT AND PLAN:
--- NOTE | 2020-07-29 10:12 | PN ---
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 There on transferred to [facility] on 07/11/20 for STR. Pt sent in from STR for lethargy, tachycardia and hypotension. NAD, denies any pain Awake and alert x 3, fatigued, knows why she is in the hospital - Current Medication List Current Medications: Active Medications Chlorhexidine Gluconate (Hibiclens For Decolonization -) 1 applic TP HS [facility] Last Admin: 07/29/20 03:17 Dose: Not Given Documented by: Sodium Bicarbonate 75 meq/ (Sodium Chloride) 1,075 mls @ 125 mls/hr IV Q8H [facility] Last Admin: 07/29/20 09:56 Dose: 125 mls/hr Documented by: Piperacillin Sod/Tazobactam (Sod 2.25 gm/ Dextrose) 50 mls @ 100 mls/hr IVPB ONCE ONE; Protocol Stop: 07/29/20 10:44 Vancomycin HCl 750 mg/ (Dextrose) 250 mls @ 250 mls/hr IVPB ONCE ONE; Protocol Stop: 07/29/20 11:29 Mupirocin (Bactroban Ointment (For Decolonization) -) 1 applic NS BID [facility] Stop: 08/02/20 21:59 Last Admin: 07/29/20 03:17 Dose: Not Given Documented by: Sodium Zirconium Cyclosilicate (Lokelma) 10 gm PO DAILY [facility] Last Admin: 07/28/20 23:38 Dose: 10 gm Documented by: - Objective Vital Signs: Vital Signs Temperature 97.9 F 07/29/20 03:00 Pulse Rate 76 07/29/20 06:00 Respiratory Rate 13 07/29/20 06:00 Blood Pressure 92/64 07/29/20 06:00 O2 Sat by Pulse Oximetry (%) 100 07/29/20 08:32 Constitutional: Yes: No Distress, Calm, Cachectic Cardiovascular: Yes: Regular Rate and Rhythm Respiratory: Yes: Regular, CTA Bilaterally Gastrointestinal: Yes: Normal Bowel Sounds, Soft, Other (mid abd colostomy, + PEG) Genitourinary: Yes: Other (right ileal conduit) Musculoskeletal: Yes: Muscle Weakness Extremities: Yes: WNL Edema: No Peripheral Pulses WNL: Yes Neurological: Yes: Alert, Oriented Psychiatric: Yes: Alert, Oriented Labs: CBC, BMP 07/28/20 16:58 07/29/20 01:20 INR, PTT INR 1.12 (0.83-1.09) H 07/28/20 16:58 Problem List - Problems (1) JULIO (acute kidney injury) Assessment/Plan: -Nephrology consult -Hold dialysis for now -IVF -monitor trend Problems reviewed: Yes Code(s): N17.9 - ACUTE KIDNEY FAILURE, UNSPECIFIED (2) Sepsis Assessment/Plan: -ID consult -IVF -Afebrile -Cultures pending -IV Zosyn x today, rest as per ID Problems reviewed: Yes Code(s): A41.9 - SEPSIS, UNSPECIFIED ORGANISM Qualifiers: Sepsis type: sepsis due to unspecified organism Sepsis acute organ dysfunction status: with acute organ dysfunction Severe sepsis acute organ dysfunction type: unspecified Severe sepsis shock status: with septic shock Qualified Code(s): A41.9 - Sepsis, unspecified organism; R65.21 - Severe sepsis with septic shock (3) Weakness Problems reviewed: Yes Code(s): R53.1 - WEAKNESS (4) Abdominal abscess Assessment/Plan: -CTAP:1. S/P cystectomy with right ileal conduit. Bilateral renal cortical scarring and mild dilatation of the upper collecting systems, left greater than right. No obvious obstruction. 2. S/P left hemicolectomy with left lower quad rant colostomy. 3. Large air and fluid collection within the pelvis suspicious for an abscess. The collection has increased in size since 05/05/2020. Clinical correlation and follow-up recommended. Please see above discussion. -Pt has had peritoneal abscess in the past -Surgical consult -IR consult -IV abx Problems reviewed: Yes Code(s): SAE8302 - (5) Anemia Assessment/Plan: -Chronic, multifactorial -Check Iron, B12 and stool OB -Transfuse only if Hg<7.0 to avoid fluid overload Problems reviewed: Yes Code(s): D64.9 - ANEMIA, UNSPECIFIED (6) Severe malnutrition Assessment/Plan: -Multivitamin -Dietary supplements when PO intake is initiated Problems reviewed: Yes Code(s): E43 - UNSPECIFIED SEVERE PROTEIN-CALORIE MALNUTRITION Assessment/Plan See problem list
[2020-07-29] MEDS ORDERED: PIPERACILLIN/TAZOB 2.25 GM 2.25 GM in DEXTROSE 5%-WATER - 50 ML IVPB ONE (10:15)
[2020-07-29] MEDS ORDERED: VANCOMYCIN 750 MG in DEXTROSE 5%-WATER - 250 ML IVPB ONE (10:30)
[2020-07-29] MEDS ORDERED: PIPERACILLIN/TAZOBACTAM 2.25 GM VIAL IVPB ONE ×2 (11:06→18:05)
[2020-07-29] MEDS ORDERED: DEXTROSE 5%-WATER - 50 ML IVPB ONE ×2 (11:06→18:05)
[2020-07-29] MEDS ORDERED: PT OWN MED DRAWER 7, Y5N ONE (11:06)
[2020-07-29] MEDS: SODIUM ZIRCONIUM CYCLOSILICATE (LOKELMA) 10 GM PACKET PO SCH ×2 (11:30→14:20)
[2020-07-29 12:47] LABS: EPI CELLS >36 /uL (0-25.1); HYALINE CASTS 47 /uL (0-3.1); URINE APPEARANCE TURBID; URINE BACTERIA >9,000 /uL (0-1359); URINE BILIRUBIN NEGATIVE (NEGATIVE); URINE COLOR YELLOW; URINE GLUCOSE (UA) NEGATIVE (NEGATIVE); URINE KETONE TRACE (NEGATIVE); URINE LEUK ESTERASE 2+ (NEGATIVE); URINE NITRITE NEGATIVE (NEGATIVE); URINE PROTEIN 1+ (NEGATIVE); URINE UROBILINOGEN 0.2 mg/dL (0.2-1.0); URINE WBC 3147 /uL (0-25.8)
--- NOTE | 2020-07-29 12:55 | PN ---
Teaching Attending Note Name of Resident: Fracisco Spears ATTENDING PHYSICIAN STATEMENT I saw and evaluated the patient. I reviewed the resident's note and discussed the case with the resident. I agree with the resident's findings and plan as documented. SUBJECTIVE: Pt seen and examined in the ICU. Reports chronic abdominal pain. Borderline hypotensive. Purulent drainage noted from PEG and urostomy. OBJECTIVE: Vital Signs Period Temp Pulse Resp BP Sys/Minor Pulse Ox Last 24 Hr 97.9 F-98.5 F 76-117 9-20 82-95/56-65 98-100 Intake & Output 07/26/20 07/27/20 07/28/20 07/29/20 23:59 23:59 23:59 23:59 Intake Total 1264 Output Total 400 Balance 864 Weight 38.555 kg 50.9 kg Gen: NAD, weak Heart: RRR Lung: decreased breath sounds at the bases Abd: soft, mild guarding, +colostomy, +urostomy Ext: no edema CBC, BMP 07/28/20 16:58 07/29/20 01:20 Active Medications Chlorhexidine Gluconate (Hibiclens For Decolonization -) 1 applic TP HS [facility] Last Admin: 07/29/20 03:17 Dose: Not Given Documented by: Sodium Bicarbonate 75 meq/ (Sodium Chloride) 1,075 mls @ 125 mls/hr IV Q8H [facility] Last Admin: 07/29/20 09:56 Dose: 125 mls/hr Documented by: Multivitamins/Minerals (Certavite-Antioxidant Liquid) 15 ml PO DAILY [facility] Mupirocin (Bactroban Ointment (For Decolonization) -) 1 applic NS BID [facility] Stop: 08/02/20 21:59 Last Admin: 07/29/20 11:30 Dose: 1 applic Documented by: Sodium Zirconium Cyclosilicate (Lokelma) 10 gm PO DAILY [facility] Last Admin: 07/29/20 11:30 Dose: 10 gm Documented by: ASSESSMENT AND PLAN: r/o Pelvic Abscess r/o Wound Infection Sepsis Acute on Chronic Renal Failure Hyperkalemia improved Metabolic Acidosis Anemia - IV antibiotics - f/u cultures - surgery eval - IVF, bicarb - monitor urine output, creatinine - monitor lytes - DVT prophylaxis - continue ICU monitoring for now
--- NOTE | 2020-07-29 12:58 | EKG ---
Test Reason : Blood Pressure : / mmHG Vent. Rate : 083 BPM Atrial Rate : 083 BPM P-R Int : 146 ms QRS Dur : 078 ms QT Int : 484 ms P-R-T Axes : 059 038 085 degrees QTc Int : 568 ms NORMAL SINUS RHYTHM T WAVE ABNORMALITY, CONSIDER ANTERIOR ISCHEMIA PROLONGED QT ABNORMAL ECG WHEN COMPARED WITH ECG OF 28-JUL-2020 18:23, T WAVE INVERSION NO LONGER EVIDENT IN INFERIOR LEADS NONSPECIFIC T WAVE ABNORMALITY HAS REPLACED INVERTED T WAVES IN LATERAL LEADS QT HAS LENGTHENED Confirmed by MD SALOME, DALLAS ([id number]) on 07/29/2020 12:57:31 PM Referred By: Confirmed By:DALLAS MCMAHON MD
--- NOTE | 2020-07-29 12:58 | EKG ---
Test Reason : Blood Pressure : / mmHG Vent. Rate : 106 BPM Atrial Rate : 106 BPM P-R Int : 128 ms QRS Dur : 072 ms QT Int : 376 ms P-R-T Axes : 058 041 224 degrees QTc Int : 499 ms SINUS TACHYCARDIA T WAVE ABNORMALITY, CONSIDER INFERIOR ISCHEMIA T WAVE ABNORMALITY, CONSIDER ANTEROLATERAL ISCHEMIA ABNORMAL ECG WHEN COMPARED WITH ECG OF 05-MAY-2020 17:49, MINIMAL CRITERIA FOR ANTEROSEPTAL INFARCT ARE NO LONGER PRESENT T WAVE INVERSION NOW EVIDENT IN INFERIOR LEADS T WAVE INVERSION NOW EVIDENT IN LATERAL LEADS Confirmed by MD SALOME, DALLAS ([id number]) on 07/29/2020 12:57:59 PM Referred By: Confirmed By:DALLAS MCMAHON MD
[2020-07-29 14:49] LABS: YEAST FEW YEASTLIKE (NEGATIVE)
[2020-07-29 14:51] LABS: BASO % 0.1 % (0-2.0); EOS % 0.9 % (0-4.5); HEMATOCRIT 26.3 % (32.4-45.2); LYMPH % 13.5 % (8-40); MCH 30.7 pg (25.7-33.7); MCHC 34.3 g/dl (32.0-36.0); MEAN CELL VOLUME 89.4 fl (80-96); MEAN PLT VOLUME 7.7 fl (7.5-11.1); MONO % 6.8 % (3.8-10.2); NEUT % 78.7 % (42.8-82.8); PLATELET COUNT 501 K/MM3 (134-434); RBC 2.95 M/mm3 (3.60-5.2); RDW 16.7 % (11.6-15.6); WHITE BLOOD COUNT 8.8 K/mm3 (4.0-10.0)
[2020-07-29 15:41] LABS: ALBUMIN 1.4 g/dl (3.4-5.0); BILIRUBIN,TOTAL 0.5 mg/dL (0.2-1); BLOOD UREA NITROGEN 92.1 mg/dL (7-18); CALCIUM 8.1 mg/dL (8.5-10.1); MAGNESIUM 2.2 mg/dL (1.8-2.4); PHOSPHOROUS 8.1 mg/dL (2.5-4.9); POTASSIUM 3.4 mmol/L (3.5-5.1); TOT PROT 6.8 g/dl (6.4-8.2)
--- NOTE | 2020-07-29 15:45 | PN ---
Progress Note (short form) - Note Progress Note: ID consult dictated imp/reccd 44 yo female [place] on 07/28 with lethargy- she was found to be in acute renal failure- ct scan abd/pelvis noted to have increasing pelvic abscess no pressors, she is alert, NAD- denies pain she was just discharged form [facility] after 2 month admission 05/06 to 07/11- alert- receiving fluids and bicarb cultures sent and started on vancomycin and zosyn would suggest we transfer back to [facility] as she has extremely complicated surgical history with multiple abdominal and pelvic surgeries-?pelvic abscess d/w ICU attending who is agreement continue vanco by levels continue zosyn adjusted for renal function continue hydration f/u renal sono f/u cultures doubt meropenem allergy, she received meroopenem and cefepime while she was at [facility] over 45 minutes spent reviewed history and examining patient and d/w icu staff Problem List - Problems (1) Pelvic abscess Code(s): [id number] - (2) Renal failure Code(s): N19 - UNSPECIFIED KIDNEY FAILURE Qualifiers: Renal failure chronicity: acute on chronic Acute renal failure type: uns pecified Chronic kidney disease stage: unspecified stage Qualified Code(s): N17.9 - Acute kidney failure, unspecified; N18.9 - Chronic kidney disease, unspecified
[2020-07-29] MEDS ORDERED: DEXTROSE 50%-WATER - 25 GM/50 ML VIAL IVPUSH ONE (15:55)
[2020-07-29 16:04] LABS: CREATININE 11.5 mg/dL (0.55-1.3)
--- NOTE | 2020-07-29 16:04 | PN ---
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 Manriquez (d/c'd 05/01/2020) who presented with lethargy altered mental status and hypotensive (90/45) with BUN/Cr 80/12 at [facility]. History obtained from family and nurse at prison who states pt was AO x 3 2 days ago. Pt also complaining of abdominal pain which from family states that has been chronic. In the ED pt had CT scan of abdomen and pelvis shows large air and fluid collection with deep pelvis in region of removed urinary bladder. The collection has increased in size since prior study now 9.1x 6.8 x 8.5 cm fluid and air collection within lower pelvis (previous 7 x 7 x 6 cm) from May 05. PMH: COPD, CKD, anemia, dialysis dysequilibrium syndrome complicated by cerebral edema (03/02/2020-03/09/2020), COVID 19 (04/19/2020), Granulosa cell tumor, PSH: ex lap/cystectomy with urostomy (ileal conduit) for urethral strictures (2006) s/p ex lap supralevator pelvic exenteration LAR with end to end anatamosis c/b anastomotic leak and bowel perforations (12/25/2019) s/p exlap/RICHARD/ small bowel rection with ileocolonic anastamosis/ end colostomy formation, drainage of peritoneal abscess (12/30/19) open cholecystectomy (04/24/20)- by Dr. Manriquez Allergy: meropenem Social: from [facility] PCP: Dr. Bean OBJECTIVE: Vital Signs Period Temp Pulse Resp BP Sys/Minor Pulse Ox Last 24 Hr 97.9 F-98.5 F 76-117 9-20 81-95/56-65 98-100 General/HEENT/Neuro -Atraumatic, Normocephalic, pupils reactive b/l, dry mucous membranes, responds to name but not following commands. AO X1. Heart - Regular rate and rhythm S1, S2, RRR Lungs - clear to auscultation bilaterally Abdomen - midline surgical scar; LLQ Colostomy bag draining black liquid stool, RLQ ileal conduit draining yellow urine, excoriations throughout upper and lower extremities. Extremities - no edema, no calf tenderness. Excoriated lesions, no superimposed cellulitis. Tattoes extensively on her extremities. Neuro: pt unable to follow commands. Laboratory Results - last 24 hr 07/28/20 07/28/20 07/28/20 16:58 16:58 16:58 WBC 10.8 H RBC 3.02 L Hgb 9.4 L Hct 27.2 L MCV 90.1 MCH 31.2 MCHC 34.7 RDW 16.8 H Plt Count 475 H D MPV 7.7 Absolute Neuts (auto) 8.2 H Neutrophils % 75.7 Lymphocytes % 12.8 Monocytes % 10.9 H Eosinophils % 0.5 D Basophils % 0.1 Nucleated RBC % 1 H PT with INR 13.20 H INR 1.12 H PTT (Actin FS) 35.5 VBG pH POC VBG pCO2 POC VBG pO2 VBG HCO3 VBG O2 Sat (Fadi) VBG Base Excess Sodium 136 Potassium 6.6 H* Chloride 107 Carbon Dioxide 13 L Anion Gap 16 BUN 92.2 H Creatinine 13.1 H* Est GFR (CKD-EPI)AfAm 3.51 Est GFR (CKD-EPI)NonAf 3.03 Random Glucose 86 Lactic Acid Calcium 8.5 Phosphorus Cancelled Magnesium Cancelled Iron TIBC Iron Saturation Unsaturated IBC Ferritin Total Bilirubin 0.5 AST 74 H ALT 23 Alkaline Phosphatase 210 H Troponin I Total Protein 7.4 Albumin 1.5 L Lipase Cancelled Vitamin B12 TSH Cancelled Urine Color Urine Appearance Urine pH Ur Specific Sinclair Urine Protein Urine Glucose (UA) Urine Ketones Urine Blood Urine Nitrite Urine Bilirubin Urine Urobilinogen Ur Leukocyte Esterase Urine WBC (Auto) Urine Casts (Auto) U Pathogenic Cast Auto U Epithel Cells (Auto) Urine Bacteria (Auto) Urine Yeast (Auto) 07/28/20 07/28/20 07/28/20 16:58 16:58 16:58 WBC RBC Hgb Hct MCV MCH MCHC RDW Plt Count MPV Absolute Neuts (auto) Neutrophils % Lymphocytes % Monocytes % Eosinophils % Basophils % Nucleated RBC % PT with INR INR PTT (Actin FS) VBG pH 7.134 L* POC VBG pCO2 36.8 L POC VBG pO2 25.8 L VBG HCO3 12.1 L VBG O2 Sat (Fadi) 32.8 L VBG Base Excess -16.1 L Sodium Potassium Chloride Carbon Dioxide Anion Gap BUN Creatinine Est GFR (CKD-EPI)AfAm Est GFR (CKD-EPI)NonAf Random Glucose Lactic Acid 1.0 Calcium Phosphorus 9.5 H* Magnesium 1.9 Iron TIBC Iron Saturation Unsaturated IBC Ferritin Total Bilirubin AST ALT Alkaline Phosphatase Troponin I < 0.02 Total Protein Albumin Lipase 264 Vitamin B12 TSH 2.45 Urine Color Urine Appearance Urine pH Ur Specific Sinclair Urine Protein Urine Glucose (UA) Urine Ketones Urine Blood Urine Nitrite Urine Bilirubin Urine Urobilinogen Ur Leukocyte Esterase Urine WBC (Auto) Urine Casts (Auto) U Pathogenic Cast Auto U Epithel Cells (Auto) Urine Bacteria (Auto) Urine Yeast (Auto) 07/29/20 07/29/20 07/29/20 01:20 11:05 13:00 WBC 8.8 RBC 2.95 L Hgb 9.0 L Hct 26.3 L MCV 89.4 MCH 30.7 MCHC 34.3 RDW 16.7 H Plt Count 501 H MPV 7.7 Absolute Neuts (auto) 6.9 Neutrophils % 78.7 Lymphocytes % 13.5 Monocytes % 6.8 Eosinophils % 0.9 Basophils % 0.1 Nucleated RBC % 0 PT with INR INR PTT (Actin FS) VBG pH POC VBG pCO2 POC VBG pO2 VBG HCO3 VBG O2 Sat (Fadi) VBG Base Excess Sodium 143 Potassium 3.4 L Chloride 111 H Carbon Dioxide 13 L Anion Gap 18 H BUN 90.7 H Creatinine 11.8 H* Est GFR (CKD-EPI)AfAm 3.99 Est GFR (CKD-EPI)NonAf 3.44 Random Glucose 80 Lactic Acid Calcium 8.0 L Phosphorus 8.3 H Magnesium 1.8 Iron TIBC Iron Saturation Unsaturated IBC Ferritin Total Bilirubin 0.4 AST 16 ALT 12 L Alkaline Phosphatase 173 H Troponin I Total Protein 5.7 L Albumin 1.3 L Lipase Vitamin B12 TSH Urine Color Yellow Urine Appearance Turbid Urine pH 6.0 Ur Specific Sinclair 1.017 Urine Protein 1+ H Urine Glucose (UA) Negative Urine Ketones Trace H Urine Blood 2+ H Urine Nitrite Negative Urine Bilirubin Negative Urine Urobilinogen 0.2 Ur Leukocyte Esterase 2+ H Urine WBC (Auto) 3147 Urine Casts (Auto) 47 U Pathogenic Cast Auto None seen U Epithel Cells (Auto) >36 Urine Bacteria (Auto) >9,000 Urine Yeast (Auto) Few yeastlike 07/29/20 13:00 WBC RBC Hgb Hct MCV MCH MCHC RDW Plt Count MPV Absolute Neuts (auto) Neutrophils % Lymphocytes % Monocytes % Eosinophils % Basophils % Nucleated RBC % PT with INR INR PTT (Actin FS) VBG pH POC VBG pCO2 POC VBG pO2 VBG HCO3 VBG O2 Sat (Fadi) VBG Base Excess Sodium 141 Potassium 3.4 L Chloride 107 Carbon Dioxide 16 L Anion Gap 18 H BUN 92.1 H Creatinine Est GFR (CKD-EPI)AfAm 4.11 Est GFR (CKD-EPI)NonAf 3.55 Random Glucose 67 L Lactic Acid Calcium 8.1 L Phosphorus 8.1 H Magnesium 2.2 Iron 62 TIBC 45 L Iron Saturation 137 H Unsaturated IBC -17 L Ferritin 1020.6 H Total Bilirubin 0.5 AST 21 ALT 14 Alkaline Phosphatase 193 H Troponin I Total Protein 6.8 Albumin 1.4 L Lipase Vitamin B12 1442 H TSH Urine Color Urine Appearance Urine pH Ur Specific Sinclair Urine Protein Urine Glucose (UA) Urine Ketones Urine Blood Urine Nitrite Urine Bilirubin Urine Urobilinogen Ur Leukocyte Esterase Urine WBC (Auto) Urine Casts (Auto) U Pathogenic Cast Auto U Epithel Cells (Auto) Urine Bacteria (Auto) Urine Yeast (Auto) Active Medications Generic Name Dose Route Start Last Admin Trade Name Freq PRN Reason Stop Dose Admin Chlorhexidine Gluconate 1 applic 07/28/20 22:00 07/29/20 03:17 Hibiclens For Decolonization - TP Not Given HS PATRICK Sodium Bicarbonate 75 meq/ 1,075 mls @ 125 mls/hr 07/28/20 20:19 07/29/20 13:24 Sodium Chloride IV Not Given Q8H PATRICK Piperacillin Sod/Tazobactam 50 mls @ 100 mls/hr 07/29/20 18:00 Sod 2.25 gm/ Dextrose IVPB Q8H-IV PATRICK Multivitamins/Minerals 15 ml 07/30/20 10:00 Certavite-Antioxidant Liquid PO DAILY PATRICK Mupirocin 1 applic 07/28/20 22:00 07/29/20 11:30 Bactroban Ointment (For Decolonization) - NS 08/02/20 21:59 1 applic BID PATRICK Administration Sodium Zirconium Cyclosilicate 10 gm 07/28/20 19:00 07/29/20 14:20 Lokelma PO Not Given DAILY [facility] ASSESSMENT/PLAN: #Neuro - pt AO X 1 - likely due to acute toxic metabolic encephalopathy 2/2 uremia - will obtain head CT - neuro checks q4h - fall risk precautions - aspiration precautions - seizure precautions - speech swallow consult - rpt cmp in AM and f/u BUN level and assess need for dialysis as per Dr. Montgomery's recommendations - must obtain UA to r/o infectious source of altered mental status #Renal - in acute kidney injury at this time 2/2 profound dehydration - baseline Cr has been quite variable from 1.7->11.5 - hold all nephrotoxic agents - pt with acute metabolic acidosis placed on bicarb drip - 1/2 NS with Na Bicarb as per renals recommendations @125/hr - pt has 3.4 K given 20meq K PO - no acute indication for dialysis at this time - renal sono ordered shows mild hydro - Pt has JULIO most likely from prerenal injury due to sepsis #Heme - microcytic anemia likely 2/2 anemia of chronic disease from CKD - pt found to have melena in her colostomy bag - will keep pt on SCD's for now for ppx - GI consult as per day teams recommendations #Cardio - sinus tachycardic 2/2 profound dehydration- now Normal sinus rhythm #Pulmonary - no acute pulmonary issues at this time - cxr negative - keep SaO2 >90% as pt has COPD hx but not documented as being on home o2 #ID - Pt has possible pelvic abscess that has increased from 05/05. - pt has positive UA - Pt on empiric abx vanc zosyn renally dosed. - Bcx pending, Ucx pending, UA shows infection Dispo -Pt will be transfered to [facility] due to abscess increasing in size from prior CT of abdomen. Pt has multiple abdominal surgeries all done in [facility]. Pt was accepted under Dr. Lafleur and pertinent history and physical was given to fellow Dr. Nelson. Carlos setting up transfer with ACLS with bicarb drip. Visit type - Emergency Visit Emergency Visit: Yes ED Registration Date: 07/28/20 Care time: The patient presented to the Emergency Department on the above date and was hospitalized for further evaluation of their emergent condition. - New Patient This patient is new to me today: No - Critical Care Critical Care patient: Yes Total Critical Care Time (in minutes): 36 Critical Care Statement: The care of this patient involved high complexity decision making to prevent further life threatening deterioration of the patient's condition and/or to evaluate & treat vital organ system(s) failure or risk of failure. ATTENDING PHYSICIAN STATEMENT I saw and evaluated the patient. I reviewed the resident's note and discussed the case with the resident. I agree with the resident's findings and plan as documented. SUBJECTIVE: OBJECTIVE: ASSESSMENT AND PLAN:
[2020-07-29] MEDS ORDERED: DEXTROSE 50%-WATER - 25 GM/50 ML VIAL ONE (16:29)
[2020-07-29] MEDS ORDERED: ACETAMINOPHEN 1000 MG/100 ML VIAL (NON FORMULARY) IVPB ONE (16:40)
[2020-07-29] MEDS ORDERED: PIPERACILLIN/TAZOB 2.25 GM 2.25 GM in DEXTROSE 5%-WATER - 50 ML IVPB SCH (18:00)
--- NOTE | 2020-07-29 18:28 | PN ---
Teaching Attending Note Name of Resident: Yue Trevizo (Nephrology) ATTENDING PHYSICIAN STATEMENT I saw and evaluated the patient. I reviewed the resident's note and discussed the case with the resident. I agree with the resident's findings and plan as documented. Renal Pt is a 44 year old female with pmhx of ckd, atrophic bladder, ileal conduot, endometriosis who was sent in from rehab for lethargy and tachycardia. She was found to be in renal failure. She was lethargic last night and could not give much history. SHe is more awake today. She says that her po intake has been very poor. She has a feeding tube. SHe was hypotensive and tachycardic. pmhx ckd julio atrophic bladder uti pshx ileal conduot allergies meropenem social hx lives in [place] family hx non contrib Current Medications Generic Name Dose Route Start Last Admin Trade Name Freq PRN Reason Stop Dose Admin Chlorhexidine Gluconate 1 applic 07/28/20 22:00 07/29/20 03:17 Hibiclens For Decolonization - TP Not Given HS PATRICK Sodium Bicarbonate 75 meq/ 1,075 mls @ 125 mls/hr 07/28/20 20:19 07/29/20 13:24 Sodium Chloride IV Not Given Q8H PATRICK Piperacillin Sod/Tazobactam 50 mls @ 100 mls/hr 07/29/20 18:00 07/29/20 18:09 Sod 2.25 gm/ Dextrose IVPB 100 mls/hr Q8H-IV PATRICK Administration Multivitamins/Minerals 15 ml 07/30/20 10:00 Certavite-Antioxidant Liquid PO DAILY PATRICK Mupirocin 1 applic 07/28/20 22:00 07/29/20 11:30 Bactroban Ointment (For Decolonization) - NS 08/02/20 21:59 1 applic BID PATRICK Administration Laboratory Tests 07/28/20 07/29/20 07/29/20 16:58 01:20 13:00 WBC 10.8 H 8.8 Hgb 9.4 L 9.0 L Plt Count 475 H D 501 H Potassium BUN Creatinine Est GFR (CKD-EPI)AfAm 3.99 07/29/20 13:00 WBC Hgb Plt Count Potassium 3.4 L BUN 92.1 H Creatinine 11.5 H* Est GFR (CKD-EPI)AfAm 4.11 Last Vital Signs Temp Pulse Resp BP Pulse Ox 98.2 F 93 H 12 80/64 L 100 07/29/20 18:00 07/29/20 18:00 07/29/20 18:00 07/29/20 18:00 07/29/20 18:00 cardio s1s2 pulm clear gu ileal cnduit skin various tattoos gi soft ext neg edema neuro arousable Impression 1. CKD 2. hx hydronephrosis 3. hx uti -esbl 4. ovarian cysts 5. anemia 6. adnexal cyst 7. nephrolithiasis 8. JULIO 9. weight loss 10. sepsis 11. hyperphosphatemia Plan - cont fluids - monitor renal function - mental status starting to improve - bp and pulse improved - follow cultures - cont abx - julio likey from sepsis and pre-renal disease - replace potassium - monitor phos levels - start sevelamer when feeds started
[2020-07-29] MEDS: POTASSIUM CHLORIDE ORAL LIQUID 20 MEQ/15 ML PO ONE ×2 (18:36→18:42)
[2020-07-29] MEDS ORDERED: KCL 10 MEQ IVPB 10 MEQ/100 ML INFUS.BAG IVPB SCH (18:45)
--- NOTE | 2020-07-29 19:14 | CONS ---
DATE OF CONSULTATION: DATE OF DICTATION: 07/29/2020 INFECTIOUS DISEASE CONSULTATION REQUESTING LIBERTARIAN: The ICU service. CONSULTING PHYSICIAN: Armando Rogers MD. HISTORY OF PRESENT ILLNESS: This is a 44-year-old woman who has had multiple admissions to [facility]. [facility] for acute renal failure. She was found to be lethargic, hypotensive, and tachycardic by the staff. Labs were drawn. She had a creatinine of 11. She was brought to the ER, where she was awake and alert, with no complaints. She had a workup that included a head CT, it showed no acute intracranial pathology. She had a CAT scan of her abdomen and pelvis that showed an air fluid collection in the pelvis suspicious for an abscess that has increased in size since April. She is status post cystectomy with right ilial conduit . She has a left hemicolectomy with a colostomy. I am asked to see her for antibiotic recommendations. Upon further examination, the patient was just discharged from [facility] after a 2-month admission from May 06 to July 11, during which she was on a variety of antibiotics including meropenem and cefepime for a variety of organisms. She was last sent there from [facility] on May 06, at which time blood cultures in ER grew MSSA and enterococcus as well as a sensitive E. coli. She is currently awake and alert, receiving IV fluids and bicarb and is able to deny any pain, deny any shortness of breath. PAST MEDICAL HISTORY: Up to the point of her admission, transfer to [facility] May 06 for when she was discharged July 15, includes history of COPD, chronic kidney disease, she had an episode of cerebral edema to dialysis. She has had ESBL organisms in the past, she has had endometriosis. She was COVID positive in April 19, 2020. Renal insufficiency, cholelithiasis, renal calculi. She has had urinary tract infections, anemia, apparently history of MRSA and ESBL, anxiety. SURGICAL HISTORY: Notable for cholecystectomy. She has a colostomy secondary to a hemicolectomy. She has a cystectomy with an ileal conduit. The open cholecystectomy was done at [facility] April 24. SOCIAL HISTORY: She resides at the prison, former smoker, no substance use. She is living at home. ALLERGIES: She has no known drug allergies. MEDICATION: Medications from prison include iron, sucralfate, sodium bicarbonate, senna, Protonix, Lidoderm patch, Colace, Symbicort, aspirin, Ventolin, hydromorphone p.r.n., Protonix, sucralfate. REVIEW OF SYSTEMS: She denies any fevers or chills. She denies any nausea or vomiting. She denies any chest pain or abdominal pain. PHYSICAL EXAMINATION: General: She has been afebrile since admission. Vital Signs: Temperature 98.2, pulse 91. She is laying flat in bed. Blood pressure is 81/60. She weighs 50 kg. HEENT: Normocephalic. Eyes are anicteric. She will not open her mouth. Neck: Supple. Lungs: Diminished breath sounds at the bases. Heart: Regular rate and rhythm. Abdomen: Flat, nontender. She has a urostomy ileal conduit that is starting to put out some urine. She has a colostomy that has very black stool. Extremities: Without edema. She has a PEG as well. Currently the wound sites are all clean. LABORATORY: Notable for a white count of 10.8 yesterday, today 8.8, hemoglobin is 9, platelets are 501. BUN and creatinine are 92 to creatinine of 11.5. Her bicarbonate is 16. Albumin is 1.4. Blood cultures have been sent and are pending. She received a dose of vancomycin and was started on piperacillin/tazobactam. IMPRESSION: In summary, this was a very complicated 44-year-old woman who has had multiple surgeries, just discharged most recently at [facility], just discharged after a 2-month admission with evidence on CAT scan of a pelvic abscess. Would suggest we transfer back to [facility]. She has an extremely complicated surgical history with multiple abdominal and pelvic surgeries, and now this question of a chronic pelvic abscess that was evident in April as well. Would continue vancomycin by levels at this time, would continue Zosyn adjusted for renal function, continue hydration, follow up renal sonogram, and follow up cultures. She currently has no requirements and is alert. And her lactic acid is normal at 1. Further recommendations to follow. ARMANDO ROGERS M.D. GLENN/[id number]
[2020-07-29 20:19] VITALS: BP 79/64; PULSE 100; TEMP 98.4
--- NOTE | 2020-07-29 23:10 | DS ---
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 Manriquez (d/c'd 05/01/2020) who presented with lethargy altered mental status and hypotensive (90/45) with BUN/Cr 80/12 at [facility]. History obtained from family and nurse at [facility] who states pt was AO x 3 2 days ago. Pt also complaining of abdominal pain which from family states that has been chronic. In the ED pt had CT scan of abdomen and pelvis shows large air and fluid collection with deep pelvis in region of removed urinary bladder. The collection has increased in size since prior study now 9.1x 6.8 x 8.5 cm fluid and air collection within lower pelvis (previous 7 x 7 x 6 cm) from May 05. OBJECTIVE: Vital Signs Period Temp Pulse Resp BP Sys/Minor Pulse Ox Last 24 Hr 97.9 F-98.5 F 76-100 9-18 79-93/56-65 100-100 PHYSICAL EXAM General/HEENT/Neuro -Atraumatic, Normocephalic, pupils reactive b/l, dry mucous membranes, responds to name but not following commands. AO X1. Heart - Regular rate and rhythm S1, S2, RRR Lungs - clear to auscultation bilaterally Abdomen - midline surgical scar; LLQ Colostomy bag draining black liquid stool, RLQ ileal conduit draining yellow urine, excoriations throughout upper and lower extremities. Extremities - no edema, no calf tenderness. Excoriated lesions, no superimposed cellulitis. Tattoes extensively on her extremities. Neuro: pt unable to follow commands. LABS Laboratory Results - last 24 hr 07/28/20 07/28/20 07/28/20 16:58 16:58 18:42 WBC RBC Hgb Hct MCV MCH MCHC RDW Plt Count MPV Absolute Neuts (auto) Neutrophils % Lymphocytes % Monocytes % Eosinophils % Basophils % Nucleated RBC % Sodium 136 Potassium 6.6 H* Chloride 107 Carbon Dioxide 13 L Anion Gap 16 BUN 92.2 H Creatinine 13.1 H* Est GFR (CKD-EPI)AfAm 3.51 Est GFR (CKD-EPI)NonAf 3.03 Random Glucose 86 Calcium 8.5 Phosphorus Cancelled 9.5 H* Magnesium Cancelled 1.9 Iron TIBC Iron Saturation Unsaturated IBC Ferritin Total Bilirubin 0.5 AST 74 H ALT 23 Alkaline Phosphatase 210 H Troponin I < 0.02 Total Protein 7.4 Albumin 1.5 L Lipase Cancelled 264 Vitamin B12 TSH Cancelled 2.45 Urine Color Urine Appearance Urine pH Ur Specific [place] Urine Protein Urine Glucose (UA) Urine Ketones Urine Blood Urine Nitrite Urine Bilirubin Urine Urobilinogen Ur Leukocyte Esterase Urine WBC (Auto) Urine Casts (Auto) U Pathogenic Cast Auto U Epithel Cells (Auto) Urine Bacteria (Auto) Urine Yeast (Auto) COVID-19 ([facility]) Not detected 07/29/20 07/29/20 07/29/20 01:20 11:05 13:00 WBC 8.8 RBC 2.95 L Hgb 9.0 L Hct 26.3 L MCV 89.4 MCH 30.7 MCHC 34.3 RDW 16.7 H Plt Count 501 H MPV 7.7 Absolute Neuts (auto) 6.9 Neutrophils % 78.7 Lymphocytes % 13.5 Monocytes % 6.8 Eosinophils % 0.9 Basophils % 0.1 Nucleated RBC % 0 Sodium 143 Potassium 3.4 L Chloride 111 H Carbon Dioxide 13 L Anion Gap 18 H BUN 90.7 H Creatinine 11.8 H* Est GFR (CKD-EPI)AfAm 3.99 Est GFR (CKD-EPI)NonAf 3.44 Random Glucose 80 Calcium 8.0 L Phosphorus 8.3 H Magnesium 1.8 Iron TIBC Iron Saturation Unsaturated IBC Ferritin Total Bilirubin 0.4 AST 16 ALT 12 L Alkaline Phosphatase 173 H Troponin I Total Protein 5.7 L Albumin 1.3 L Lipase Vitamin B12 TSH Urine Color Yellow Urine Appearance Turbid Urine pH 6.0 Ur Specific [place] 1.017 Urine Protein 1+ H Urine Glucose (UA) Negative Urine Ketones Trace H Urine Blood 2+ H Urine Nitrite Negative Urine Bilirubin Negative Urine Urobilinogen 0.2 Ur Leukocyte Esterase 2+ H Urine WBC (Auto) 3147 Urine Casts (Auto) 47 U Pathogenic Cast Auto None seen U Epithel Cells (Auto) >36 Urine Bacteria (Auto) >9,000 Urine Yeast (Auto) Few yeastlike COVID-19 ([facility]) 07/29/20 13:00 WBC RBC Hgb Hct MCV MCH MCHC RDW Plt Count MPV Absolute Neuts (auto) Neutrophils % Lymphocytes % Monocytes % Eosinophils % Basophils % Nucleated RBC % Sodium 141 Potassium 3.4 L Chloride 107 Carbon Dioxide 16 L Anion Gap 18 H BUN 92.1 H Creatinine 11.5 H* Est GFR (CKD-EPI)AfAm 4.11 Est GFR (CKD-EPI)NonAf 3.55 Random Glucose 67 L Calcium 8.1 L Phosphorus 8.1 H Magnesium 2.2 Iron 62 TIBC 45 L Iron Saturation 137 H Unsaturated IBC -17 L Ferritin 1020.6 H Total Bilirubin 0.5 AST 21 ALT 14 Alkaline Phosphatase 193 H Troponin I Total Protein 6.8 Albumin 1.4 L Lipase Vitamin B12 1442 H TSH Urine Color Urine Appearance Urine pH Ur Specific [place] Urine Protein Urine Glucose (UA) Urine Ketones Urine Blood Urine Nitrite Urine Bilirubin Urine Urobilinogen Ur Leukocyte Esterase Urine WBC (Auto) Urine Casts (Auto) U Pathogenic Cast Auto U Epithel Cells (Auto) Urine Bacteria (Auto) Urine Yeast (Auto) COVID-19 ([facility]) HOSPITAL COURSE: Date of Admission:07/28/20 - treated Ca Glu, Alb, Insulin 10 with 2xD50, Bicarb 1 amp + drip 1/5NS with 1.5 amps at 100cc/hr, 2L NS -As per Nephrology- Dr. Montgomery no need for urgent hemodioalysis as patient is too dry and continued on IVF and pending repeat BMP - Repeat BMP showed K 3.4 repleted with oral K 20mEq. - Pt given 3 rounds of 2.275 gm of zosyn and one round of renally dosed vancomycin for possible septic picture. Pt cultures are still pending - pt was given NS fluid and bicarb drip for JULIO -Dialysis was not needed for JULIO because no electrolyte abnormalities. Pt JULIO most likely due to sepsis. - Pt due to multiple abdominal history in [facility] and expanding abscess in pelvis was transferred to [facility] -Pt was accepted under Dr. Lafleur and pertinent history and physical was given to fellow Dr. Nelson Date of Discharge: 07/29/20 Minutes to complete discharge: 40 Discharge Summary Problems reviewed: Yes Reason For Visit: ACUTE KIDNEY INJURY RENAL INSUFFICIENCY SEPSIS Condition: Stable - Instructions Referrals: Vicki Guan DO [Primary Care Provider] - Disposition: TRANSFER ACUTE CARE/OTHER HOSP - Home Medications Comprehensive Discharge Medication List: Ambulatory Orders Albuterol 0.083% Nebulizer Nancy [Ventolin 0.083% Nebulizer Soln -] 1 neb NEB Q6H PRN 03/02/20 Budesonide/Formeterol Fumarate [SYMBICORT 160/4.5mcg -] 2 inh PO BID 03/02/20 Gabapentin [Neurontin] 300 mg PO BID 03/02/20 Magnesium Oxide [Magnesium] 400 mg PO TID 03/02/20 Docusate Sodium [Docusate 100 mg] 100 mg PO BID 03/05/20 Sennosides [Senna] 2 tablet PO BID 03/05/20 Aspirin [ASA -] 81 mg PO DAILY #30 tab.chew 03/09/20 Hydromorphone HCl 2 mg PO PRN 04/19/20 Pantoprazole Sodium [Protonix -] 40 mg PO BID 04/19/20 Sucralfate 2 tab PO QID 04/19/20 Sucralfate [Carafate -] 1 gm PO DAILY 04/19/20 Acetaminophen 500 mg PO PRN 07/29/20 Ferrous Sulfate [Feosol] 5 ml PO DAILY 07/29/20 Lidocaine 5% Patch [Lidoderm Patch -] 1 patch TP DAILY PRN 07/29/20 Sodium Bicarbonate - 650 mg PO TID 07/29/20 This patient is new to me today: Yes Date on this admission: 07/29/20 Emergency Visit: Yes ED Registration Date: 07/28/20 Care time: The patient presented to the Emergency Department on the above date and was hospitalized for further evaluation of their emergent condition. Critical Care patient: No - Discharge Referral Referred to [facility] No ATTENDING PHYSICIAN STATEMENT I saw and evaluated the patient. I reviewed the resident's note and discussed the case with the resident. I agree with the resident's findings and plan as documented. SUBJECTIVE: OBJECTIVE: ASSESSMENT AND PLAN:
[2020-07-30] MEDS ORDERED: MULTIVIT-MINERALS ORAL LIQUID PO SCH (10:00)
== END 2020-07-29 20:57 | disposition short-term general hospital (02) | DRG 720 ==
LOC: JER 16:08 → JERBED 19:40 → JICU 07-29 02:24
PROVIDERS: ADMIT Hospitalist; ATTEND Family Medicine
DX: A41.89 Other specified sepsis (principal); K65.1 Peritoneal abscess; N80.9 Endometriosis, unspecified; E83.39 Other disorders of phosphorus metabolism; J44.9 Chronic obstructive pulmonary disease, unspecified; D63.1 Anemia in chronic kidney disease; E87.8 Other disorders of electrolyte and fluid balance, not elsewhere classified; E86.0 Dehydration; E87.5 Hyperkalemia; R53.83 Other fatigue; D39.10 Neoplasm of uncertain behavior of unspecified ovary; R64 Cachexia; Z68.1 Body mass index [BMI] 19.9 or less, adult; N17.9 Acute kidney failure, unspecified; G93.41 Metabolic encephalopathy; E87.2 Acidosis; E87.6 Hypokalemia; R42 Dizziness and giddiness; R00.0 Tachycardia, unspecified; E43 Unspecified severe protein-calorie malnutrition; I95.9 Hypotension, unspecified; I12.9 Hypertensive chronic kidney disease with stage 1 through stage 4 chronic kidney disease, or unspecified chronic kidney disease; N18.3 Chronic kidney disease, stage 3 (moderate); Z93.1 Gastrostomy status; Z93.6 Other artificial openings of urinary tract status
CPT/HCPCS: 36415; 70450-TC; 71045-TC-FY; 74176-TC; 76775-TC; 80053; 81003; 82607; 82728; 82803; 83540; 83550; 83605; 83690; 83735; 84100; 84443; 84484; 85025; 85027; 85610; 85730; 87040; 87086; 87186; 93005; 93010; 99285-25; J0131; U0003

== ENCOUNTER 2021-08-27 13:58 | Emergency (ER) | payer OTHER ==
[2021-08-27] MEDS ORDERED: VANCOMYCIN 1,000 MG in DEXTROSE 5%-WATER - 250 ML IVPB ONE (14:33)
[2021-08-27] MEDS ORDERED: PIPERACILLIN/TAZOB 4.5 GM 4.5 GM in DEXTROSE 5%-WATER 100 ML IVPB ONE (14:34)
[2021-08-27 14:47] VITALS: BMI 24.0
[2021-08-27] MEDS ORDERED: CEFEPIME HCL/D5W 1 GM/50 ML BAG IVPB ONE (15:23)
[2021-08-27] MEDS ORDERED: PIPERACILLIN/TAZOB 4.5 GM 4.5 GM/100 ML BAG IVPB ONE (15:26)
[2021-08-27] MEDS ORDERED: VANCOMYCIN 1 GRAM (PRE-DOCKED) 1,000 MG/250 ML BAG IVPB ONE (15:26)
[2021-08-27 15:32] LABS: VENOUS O2 SATURATION 54.1 % (70-80); VENOUS PCO2 25.7 mmHg (38-52); VENOUS PH 7.307 (7.310-7.410)
[2021-08-27 15:37] LABS: HEMATOCRIT 19.6 % (32.4-45.2); MCHC 32.9 g/dl (32.0-36.0); MEAN PLT VOLUME 9.1 fl (7.5-11.1); PLATELET COUNT 86 10^3/uL (134-434); RBC 2.23 M/mm3 (3.60-5.2); RDW 17.9 % (11.6-15.6); WHITE BLOOD COUNT 5.7 K/mm3 (4.0-10.0)
[2021-08-27 15:40] LABS: INR 1.34 (0.83-1.09); PROTHROMBIN TIME (PATIENT) 16.3 SEC (9.7-13.0)
[2021-08-27 15:42] LABS: HEMOGLOBIN 6.5 GM/dL (10.7-15.3)
[2021-08-27 15:43] LABS: ACTIVATED PTT 50.1 SECONDS (25.2-36.5)
[2021-08-27] MEDS ORDERED: DEXTROSE 50%-WATER - 25 GM/50 ML VIAL IVPUSH ONE (15:49)
[2021-08-27] MEDS ORDERED: DEXTROSE 5%-WATER 1000 ML INFUS.BAG IV ONE (15:50)
[2021-08-27] MEDS ORDERED: DEXTROSE 50%-WATER 25 GM/50 ML DISP.SYRIN ONE (15:52)
[2021-08-27 15:54] LABS: CHLORIDE 108 mmol/L (98-107); SODIUM 142 mmol/L (136-145)
[2021-08-27 15:56] LABS: CALCIUM 8.3 mg/dL (8.5-10.1)
[2021-08-27 15:57] LABS: ALBUMIN 0.7 g/dl (3.4-5.0); BLOOD UREA NITROGEN 22.3 mg/dL (7-18); CO2 15 mmol/L (21-32); GLUCOSE,RANDOM 73 mg/dL (74-106)
[2021-08-27 16:00] LABS: SGOT/AST 75 U/L (15-37); SGPT/ALT 33 U/L (13-61)
[2021-08-27 16:02] LABS: BILIRUBIN,TOTAL 9.1 mg/dL (0.2-1)
[2021-08-27 16:03] LABS: ALK PHOS 120 U/L (45-117); ANION GAP 20 MMOL/L (8-16); CREATININE 7.8 mg/dL (0.55-1.3); LACTIC ACID 5.4 mmol/L (0.4-2.0)
[2021-08-27] MEDS ORDERED: CEFEPIME 1 GM/100 ML BAG IVPB ONE (16:04)
[2021-08-27 16:22] LABS: MAGNESIUM 1.4 mg/dL (1.8-2.4)
[2021-08-27] MEDS ORDERED: NOREPINEPHRINE D5W PREMIX 16,000 MCG/500 ML BAG IVPB SCH (17:15)
[2021-08-27 17:23] LABS: ANISOCYTOSIS 3+; MACROCYTOSIS 0; PLATELET ESTIMATE DECREASED; TARGET CELLS 1+
[2021-08-27] MEDS ORDERED: MAGNESIUM SULF 50% (8.12 MEQ/2 ML-1 GM VIAL) IVPB ONE (19:07)
[2021-08-27] MEDS ORDERED: MAGNESIUM SULFATE IN WATER 2 GM/50 ML IVPB IVPB ONE (19:13)
[2021-08-27] MEDS ORDERED: KCL 10 MEQ IVPB 10 MEQ/100 ML INFUS.BAG IVPB ONE (19:14)
[2021-08-27] MEDS: KCL 10 MEQ IVPB 10 MEQ/100 ML INFUS.BAG IVPB SCH ×3 (19:19→21:33)
[2021-08-27] MEDS ORDERED: HYDROCORTISONE SOD SUCCINATE 100 MG/2 ML VIAL IVPUSH ONE (20:13)
[2021-08-27] MEDS ORDERED: HYDROCORTISONE SOD SUCCINATE 100 MG/2 ML VIAL ONE (20:26)
[2021-08-27] MEDS ORDERED: KCL 10 MEQ IVPB 20 MEQ/200 ML INFUS.BAG IVPB ONE (20:27)
[2021-08-27] MEDS ORDERED: SUCCINYLCHOLINE CHLORIDE 200 MG/10 ML VIAL IVPUSH ONE (21:09)
[2021-08-27] MEDS ORDERED: KETAMINE HCL 200 MG/20 ML VIAL IVPUSH ONE (21:09)
[2021-08-27] MEDS ORDERED: MIDAZOLAM IN 0.9 % SOD.CHLORID 100 MG/100 ML PLAST..BAG IVPB SCH (21:15)
[2021-08-27] MEDS ORDERED: ROCURONIUM BROMIDE 50 MG/5 ML VIAL IV ONE (21:18)
[2021-08-27] MEDS ORDERED: MIDAZOLAM IN 0.9 % SOD.CHLORID 1 MG/1 ML PLAST..BAG ONE (21:20)
[2021-08-27] MEDS ORDERED: ROCURONIUM BROMIDE 100 MG/10 ML VIAL ONE (21:25)
[2021-08-27] MEDS ORDERED: KETAMINE HCL 200 MG/20 ML VIAL ONE (21:26)
[2021-08-27] MEDS ORDERED: ROCURONIUM BROMIDE 100 MG/10 ML VIAL IV ONE (21:30)
[2021-08-27 21:48] LABS: LACTIC ACID 7.9 mmol/L (0.4-2.0)
[2021-08-27] MEDS ORDERED: LACTATED RINGERS SOLUTION 1000 ML INFUS.BAG IV ONE ×2 (21:50→23:01)
[2021-08-27 21:51] LABS: CALCIUM 7.5 mg/dL (8.5-10.1)
[2021-08-27 21:52] LABS: ALBUMIN 0.8 g/dl (3.4-5.0); BLOOD UREA NITROGEN 20.8 mg/dL (7-18)
[2021-08-27 21:57] LABS: BILIRUBIN,TOTAL 9.7 mg/dL (0.2-1); TOT PROT 5.3 g/dl (6.4-8.2)
[2021-08-27 22:06] VITALS: TEMP 96.4
[2021-08-27] MEDS ORDERED: ROCURONIUM BROMIDE 50 MG/5 ML VIAL IVPUSH ONE ×2 (22:19→22:21)
[2021-08-27 22:55] LABS: ARTERIAL BLD GAS O2 SATURATION 97.9 % (95-98); ARTERIAL BLOOD GAS BASE EXCESS -19.9 mmol/L (-2-2); ARTERIAL BLOOD GAS PO2 133.8 mmHg (80-100)
[2021-08-27 22:57] LABS: VENT MODE A/C; VENT RATE 14
[2021-08-27 23:15] VITALS: BP 101/67; PULSE 91
[2021-08-27] MEDS: ALBUMIN HUMAN 25% 12.5 GM/50 ML VIAL IVPB SCH (23:36)
[2021-08-28] MEDS: ALBUMIN HUMAN 25% 12.5 GM/50 ML VIAL IVPB SCH ×2 (00:02→00:32)
== END 2021-08-28 01:04 | disposition short-term general hospital (02) ==
LOC: JER 13:58
PROC: 05HM03Z Insertion of Infusion Device into Right Internal Jugular Vein, Open Approach (ICD-10-PCS; principal; 2021-08-27)
DX: A41.9 Sepsis, unspecified organism (principal); E87.2 Acidosis; E87.6 Hypokalemia; D64.9 Anemia, unspecified; R65.21 Severe sepsis with septic shock; G92.8 Other toxic encephalopathy
CPT/HCPCS: 36415; 36430; 36600; 70450-TC; 71045-TC-FY; 74176-TC; 80053; 82803; 82962; 83605; 83735; 84484; 85025; 85384; 85610; 85730; 86850; 86900; 86901; 86922; 87040; 87186; 93005; 93010; 99285-25; C9803; P9047; P9058; U0003; U0005